=== PATIENT | male | born 1955 | race Caucasian/White ===

== ENCOUNTER 2023-07-10 18:43 | Emergency (ER) | payer MEDICARE, OTHER, SELFPAY ==
[2023-07-10 18:48] VITALS: BP 152/99; PULSE 98; RESP 18; TEMP 36.6; O2SAT 98; BMI 38.9
--- NOTE | 2023-07-10 18:56 | PC.NURSE ---
Patient reports anxiety past couple of days that tot
--- NOTE | 2023-07-10 18:58 | PC.NURSE ---
Patient reports anxiety past couple of days, symptoms worsening this evening.
--- NOTE | 2023-07-10 19:11 | ED_ITS ---
HPI - Anxiety General Chief Complaint: Anxiety Stated Complaint: INCREASED ANXIETY Time Seen by Provider: 07/10/23 18:52 Source: patient Mode of arrival: walk-in Limitations: no limitations History of Present Illness HPI narrative: patient is a 68-year-old male with a history of kidney transplant, recent diagnosis of atrial fibrillation who presents to the Emergency Room for increasing anxiety. Patient states he has been taking hydroxyzine for the last year and ran out two months ago. He states his PCP asked him if he wanted a refill of the medication but he stated that he was doing well and did not feel he needed it. He states since being diagnosed with atrial fibrillation he has felt more anxious. He denies any chest pain, shortness of breath. His symptoms are consistent with previous anxiety exacerbations. He denies any new focal medical complaints. He has no thoughts of suicide or homicide. Related Data Home Medications Medication Instructions Recorded Confirmed aspirin 81 mg tablet,delayed 81 mg PO DAILY 07/10/23 07/10/23 release (Adult Aspirin Regimen) mycophenolate mofetil 250 mg 500 mg PO Q12H 07/10/23 07/10/23 capsule prednisone 5 mg tablet 5 mg PO DAILY 07/10/23 07/10/23 sulfamethoxazole 400 1 tab PO DAILY 07/10/23 07/10/23 mg-trimethoprim 80 mg tablet tacrolimus 1 mg capsule, 1 mg PO Q12H 07/10/23 07/10/23 immediate-release Previous Rx's Medication Instructions Recorded hydroxyzine pamoate 25 mg capsule 25 mg PO Q8H PRN anxiety #15 caps 07/10/23 (Vistaril) Allergies Allergy/AdvReac Type Severity Reaction Status Date / Time No Known Drug Allergies Allergy Verified 07/10/23 18:51 Review of Systems ROS Constitutional Denies: fever or chills Ears, nose, mouth, and throat Denies: throat pain Cardiovascular Denies: chest pain Respiratory Denies: shortness of breath or cough Gastrointestinal Denies: nausea or vomiting Musculoskeletal Denies: back pain Integumentary/Breast Denies: rash Neurological Denies: headache Psychiatric Reports: anxiety Hematologic/Lymphatic Denies: easy bruising PFSH PFSH Social History Smoking status: Never smoker Exam Narrative Exam Narrative: Gen.: Awake, alert, in no distress Head: Normocephalic, atraumatic ENT: Moist mucous membranes Respiratory: No respiratory distress, lungs clear bilaterally Cardio: regular rate, no significant irregular rhythm noted Gastrointestinal: Abdomen is soft, nondistended and nontender to palpation Psych: Normal mood and affect Neuro: No focal neuro deficit Skin: Warm, dry, intact Constitutional Vital Signs, click to edit/add: Last Vital Signs Temp 98 F 07/10/23 18:48 Pulse 98 H 07/10/23 18:48 Resp 18 07/10/23 18:48 BP 152/99 H 07/10/23 18:48 Pulse Ox 98 07/10/23 18:48 O2 Del Method Room Air 07/10/23 18:48 Course Vital Signs Vital signs: Vital Signs Temperature 98 F 07/10/23 18:48 Pulse Rate 98 H 07/10/23 18:48 Respiratory Rate 18 07/10/23 18:48 Blood Pressure 152/99 H 07/10/23 18:48 Pulse Oximetry 98 07/10/23 18:48 Oxygen Delivery Method Room Air 07/10/23 18:48 Temperature 98 F 07/10/23 18:48 Pulse Rate 98 H 07/10/23 18:48 Respiratory Rate 18 07/10/23 18:48 Blood Pressure 152/99 H 07/10/23 18:48 Pulse Oximetry 98 07/10/23 18:48 Oxygen Delivery Method Room Air 07/10/23 18:48 MDM - Anxiety MDM Narrative Medical decision making narrative: I had a lengthy discussion with the patient about treatment plan. Patient is calm, cooperative with stable vital signs in the Emergency Room. He has no complaints of chest pain or shortness of breath. Given his recent diagnosis of atrial fibrillation, I recommended that we obtain an EKG and basic lab studies to rule out any other acute process causing the patient's anxiety. Patient states he does not wish to have any further evaluation in the Emergency Room, he is requesting a refill of his hydroxyzine. He states that he can follow closely with his PCP, [facility] He has no other focal medical complaints in the Emergency Room. It was strongly encouraged that the patient return to the Emergency Room if he develops any worsening focal medical complaints of chest pain, shortness of breath, fevers, vomiting. He vocalizes understanding and agreement. Hydroxyzine provided from the Emergency Room and with prescription until he can see his PCP. Medical Records Attestation: I reviewed the patient's medical records. Lab Data Attestation: I reviewed the patient's lab results. Discharge Plan Discharge Chief Complaint: Anxiety Clinical Impression: Acute anxiety Patient Disposition: Home, Self-Care Time of Disposition Decision: 19:09 Condition: Good Prescriptions / Home Meds: New hydroxyzine pamoate [Vistaril] 25 mg capsule 25 mg PO Q8H PRN (Reason: anxiety) Qty: 15 0RF No Action tacrolimus 1 mg capsule 1 mg PO Q12H mycophenolate mofetil 250 mg capsule 500 mg PO Q12H sulfamethoxazole-trimethoprim 400-80 mg tablet 1 tab PO DAILY prednisone 5 mg tablet 5 mg PO DAILY aspirin [Adult Aspirin Regimen] 81 mg tablet,delayed release (DR/EC) 81 mg PO DAILY Instructions: Anxiety (ED) Stand Alone Forms: Portal Instructions Referrals: Arden Sams [Primary Care Provider] - 1 week
[2023-07-10] MEDS: HYDROXYZINE PAMOATE 25 MG CAPSULE PO (19:47)
== END 2023-07-10 19:57 | disposition home or self-care (01) ==
PROVIDERS: Emergency Provider Emergency Medicine; PCP Physician Assistant
DX: F41.9 Anxiety disorder, unspecified (principal); I48.91 Unspecified atrial fibrillation; Z94.0 Kidney transplant status; Z79.82 Long term (current) use of aspirin; Z79.899 Other long term (current) drug therapy
CPT/HCPCS: 99283

== ENCOUNTER 2023-09-19 11:29 | Outpatient (REF) | payer MEDICARE, OTHER, SELFPAY ==
--- OUTSIDE RECORDS SUMMARY | 2023-09-19 11:33 | XMS_ITS | CCD ---
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 Name Role Phone Latrell CORTEZ, Kathleen Flores Primary Care Provider Lard FINISHING WIRE SAWYER.Usman ESTRADA Unavailable LANCE GLASGOW Admitting Unavailable [facility] Unava ilable LANCE GLASGOW Attending Unavailable LANCE GLASGOW Consulting Unavailable CHRISSY KEYES Admitting Unavailable DR MUSTAPHA BAUGH V Consulting Unavailable [facility] Unava ilCHRISSY Valencia Attending Unavailable CHRISSY KEYES Consulting Unavailable CHRISSY KEYES Attending Unavailable DR Jan Rosario Consulting Unavailable [facility] Unava ilable CHRISSY KEYES Admitting Unavailable CHRISSY KEYES Consulting Unavailable Kathleen Sams PA-C Primary Care Provider Lard FINISHING WIRE SAWYER.Usman ESTRADA Unavailable Kathleen Sams PA-C Primary Care Provider Lard FINISHING WIRE SAWYER.Usman ESTRADA Unavailable Lard FINISHING WIRE SAWYER.Usman ESTRADA Unavailable KATHLEEN SAMS Primary Care Unavailable WEIGHT, CHRISTOPHER Attending Unavailable KATHLEEN SAMS Primary Care Unavailable WEIGHT, CHRISTOPHER Attending Unavailable KATHLEEN SAMS Primary Care Unavailable KRISTINA WHITAKER Attending Unavailable KATHLEEN SAMS Primary Care Unavailable WEIGHT, CHRISTOPHER Referring Unavailable KATHLEEN SAMS Primary Care Unavailable NAEL RICHTER Referring Unavailable KATHLEEN SAMS Primary Care Unavailable KATHLEEN SAMS Primary Care Unavailable KATHLEEN SAMS Primary Care Unavailable LARUSMAN Sierra Attending Unavailable KATHLEEN SAMS Primary Care Unavailable KATHLEEN SAMS Primary Care Unavailable WEIGHT, CHRISTOPHER Referring Unavailable KATHLEEN SAMS Primary Care Unavailable KATHLEEN SAMS Primary Care Unavailable Medications Current Medications Medication Drug Class(es) Dates Sig (Normalized) Sig (Original) iv contrast (will be provided with radiology test) (2 sources) Start: 09-19-2022 End: 09-20-2022 iv contrast (will be provided with radiology test) MRI Prostate Inject, intravenously, once for 1 dose. No IV access, insert saline lock prior to the beginning of sedation, infusion, injection of imaging exam. Discontinue saline lock post exam. If Pt. has a central line or IVAD, may access for administration according to line specific nursing protocol. Once exam is complete flush line and de-access according to line specific nursing protocol in the MR contrast administration guidelines link. 1 Each 0 09/19/2022 09/20/2022 Active Comment on above: MRI Prostate Inject, intravenously, once for 1 dose. No IV access, insert saline lock prior to the beginning of sedation, infusion, injection of imaging exam. Discontinue saline lock post exam. If Pt. has a central line or IVAD, may access for administration according to line specific nursing protocol. Once exam is complete flush line and de-access according to line specific nursing protocol in the MR contrast administration guidelines link. Completed/Discontinued Medications Medication Drug Class(es) Dates Sig (Normalized) Sig (Original) acetaminophen 500 mg oral tablet (7 sources) Start: 10-05-2009 End: 09-16-2022 acetaminophen(TYLEN OL EXTRA STRENGTH 500 MG TAB) Take two(2) tablets every six(6) hours as needed for pain. 0 10/05/2009 09/16/2022 Discontinued (Course of therapy completed) Comment on above: Take two(2) tablets every six(6) hours as needed for pain. aspirin 81 mg chewable tablet (19 sources) Platelet Aggregation Inhibitor, Nonsteroidal Anti-inflammatory Drug Start: 05-03-2009 take 1 tablet by mouth once daily ASPIRIN 81 MG CHEWABLE TAB 1 Tab ORAL DAILY 0 05/03/2009 Active Comment on above: 1 Tab ORAL DAILY Calcium Carbonate / vitamin D3 (19 sources) take 1 tablet by mouth once daily CALCIUM CARBONATE/VITAMIN D3 (CALCIUM + D ORAL) Take one(1) tablet two(2) times daily. 0 Active Comment on above: Take one(1) tablet t wo(2) times daily. gabapentin 300 mg oral capsule (13 sources) Anti-epileptic Agent Start: 08-22-2022 take 1 capsule by mouth twice daily gabapentin (NEURONTIN) 300 mg capsule Take 300 mg by mouth twice daily. 0 08/22/2022 Active Comment on above: Take 300 mg by mouth twice daily. hydrOXYzine hydrochloride 25 mg oral tablet (9 sources) Antihistamine Start: 05-21-2022 End: 06-30-2023 take 1 tablet by mouth every eight hours as needed hydrOXYzine HCl (ATARAX) 25 mg tablet Take 25 mg by mouth every 8 hours as needed. 0 05/21/2022 06/30/2023 Discontinued (Discontinued by Patient) Comment on above: Take 25 mg by mouth every 8 hours as needed. magnesium oxide 400 mg oral tablet (6 sources) Start: 05-27-2014 End: 03-19-2022 take 1 tablet by mouth twice daily magnesium oxide (MAG-OX) 400 mg tablet Indications: Hypomagnesemia Take 1 tablet by mouth twice daily. 180 tablet 3 05/27/2014 03/19/2022 Discontinued Comment on above: Take 1 tablet by jennifer twice daily. mycophenolate mofetil 250 mg oral capsule (20 sources) Start: 07-01-2022 End: 06-26-2023 take 2 capsules by mouth twice daily mycophenolate mofetil (CELLCEPT) 250 mg capsule Indications: Kidney replaced by transplant , Need for prophylactic immunotherapy take 2 capsules by mouth twice a day 360 capsule 3 06/26/2023 Active Start: 04-17-2021 End: 03-19-2022 take 2 capsules by mouth twice daily mycophenolate mofetil (CELLCEPT) 250 mg capsule Indications: Kidney replaced by transplant , Need for prophylactic immunotherapy Take 2 capsules by mouth twice daily. Diagnosis Code: Z94.0 Kidney Transplant 360 capsule 3 04/17/2021 03/19/2022 Discontinued Comment on above: Take 2 capsules by m outh twice daily. Diagnosis Code: Z94.0 Kidney Transplant take 2 capsules by m outh twice a day predniSONE 5 mg oral tablet (20 sources) Start: 07-01-2022 End: 06-26-2023 take 1 tablet by mouth once daily predniSONE (DELTASONE) 5 mg tablet Indications: Kidney replaced by transplant take 1 tablet by mouth once daily 90 tablet 3 06/26/2023 Active Start: 03-21-2021 End: 03-19-2022 take 1 tablet by mouth once daily predniSONE (DELTASONE) 5 mg tablet Indications: Kidney replaced by transplant Take 1 tablet by mouth once daily. 90 tablet 3 03/21/2021 03/19/2022 Discontinued Comment on above: Take 1 tablet by jennifer th once daily. take 1 tablet by jennifer th once daily sulfamethoxazole 400 mg / trimethoprim 80 mg oral tablet (20 sources) Dihydrofolate Reductase Inhibitor Antibacterial, Sulfonamide Antimicrobial Start: 07-01-20 End: 06-26-20 take 1 tablet by mouth once daily sulfamethoxazole-tr imethoprim (BACTRIM) 400-80 mg per tablet Indications: Need for pneumocystis prophylaxis take 1 tablet by mouth once daily 90 tablet 3 06/26/2023 Active Start: 03-21-2021 End: 03-19-2022 take 1 tablet by mouth once daily sulfamethoxazole-trimethoprim (BACTRIM,SEPTRA) 400-80 mg per tablet Indications: Need for pneumocystis prophylaxis Take 1 tablet by mouth once daily. 90 tablet 3 03/21/2021 03/19/2022 Discontinued Comment on above: Take 1 tablet by jennifer th once daily. take 1 tablet by jennifer th once daily tacrolimus 1 mg oral capsule (20 sources) Calcineurin Inhibitor Immunosuppressant Start: 09-20-19 End: 12-06-19 take 1 capsule by mouth twice daily tacrolimus IR (PROGRAF) 1 mg capsule Indications: Kidney replaced by transplant Take(1) capsule by mouth twice daily 270 capsule 3 12/05/2022 Active Start: 07-01-2022 End: 09-20-2022 take 1 capsule by mouth once daily in the morning tacrolimus IR (PROGRAF) 1 mg capsule Indications: Kidney replaced by transplant Take (2) capsules by mouth every morning and (1) capsule every evening 270 capsule 3 07/01/2022 09/20/2022 Discontinued Start: 04-17-2021 End: 03-19-2022 take 1 capsule by mouth twice daily tacrolimus IR (PROGRAF) 1 mg capsule Indications: Kidney replaced by transplant Take 2 capsules by mouth twice daily (Take 12 hours apart) Diagnosis Code: Z94.0 360 capsule 3 04/17/2021 03/19/2022 Discontinued Comment on above: Take 2 capsules by m out twice daily (Take 12 hours apart) Diagnosis Code: Z94.0 Take (2) capsules by mouth every morning and (1) capsule every evening Take(1) capsule by m out twice daily Problems Active Problems Problem Classification Problem Date Documented Da te Episodic/Chronic Abdominal hernia (19 sources) Umbilical hernia; Translations: [Umbilical hernia without obstruction or gangrene] 01-29-2012 Episodic Cardiac dysrhythmias (4 sources) Irregular heart beat; Translations: [Cardiac arrhythmia, unspecified] Onset: 06-30-2023 06-30-2023 Chronic Chronic kidney disease (1 source) Kidney transplant status; Translations: [Kidney replaced by transplant] Onset: 05-08-2009 Chronic Genitourinary congenital anomalies (20 sources) Multiple renal cysts; Translations: [Polycystic kidney, unspecified] Onset: 05-08-2009 05-08-2009 Chronic Hypertension with complications and secondary hypertension (19 sources) 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; Translations: [Hypertensive heart and chronic kidney disease without heart failure, with stage 5 chronic kidney disease, or end stage renal disease] Onset: 05-08-2009 05-08-2009 Chronic Other aftercare (1 source) Transplant follow-up; Translations: [Encounter for aftercare following other organ transplant] 06-30-2023 Chronic Other aftercare (1 source) Encounter for aftercare following other organ transplant; Translations: [Aftercare following organ transplant] Onset: 06-30-2023 Chronic Other aftercare (1 source) 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; Translations: [[facility] CURRENT USE OF ASPIRIN] Onset: 04-22-2022 Episodic Other aftercare (1 source) Other [facility] (current) drug therapy; Translations: [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] Onset: 04-22-2022 Episodic Other diseases of kidney and ureters (19 sources) Ureteric fistula; Translations: [Other specified disorders of kidney and ureter] Onset: 05-08-2009 05-08-2009 Chronic Other gastrointestinal disorders (4 sources) Constipation, unspecified; Translations: [CONSTIPATION UNSPECIFIED] Onset: 04-20-2022 Episodic Other non-traumatic joint disorders (4 sources) Pain in left ankle and joints of left foot; Translations: [PAIN IN LEFT ANKLE] Onset: 01-30-2022 Episodic Other nutritional; endocrine; and metabolic disorders (2 sources) Hypomagnesemia; Translations: [Hypomagnesemia] Chronic Other nutritional; endocrine; and metabolic disorders (1 source) Hypophosphatemia; Translations: [Other disorders of phosphorus metabolism] 06-30-2023 Chronic Other nutritional; endocrine; and metabolic disorders (1 source) Other disorders of phosphorus metabolism; Translations: [Hypophosphatemia] Onset: 06-30-2023 Chronic Other nutritional; endocrine; and metabolic disorders (1 source) Hypomagnesemia; Translations: [Hypomagnesemia] Onset: 06-30-2023 Chronic Past or Other Problems Problem Classification Problem Date Documented Da te Episodic/Chronic Other screening for suspected conditions (not mental disorders or infectious disease) (10 sources) Raised prostate specific antigen; Translations: [Elevated prostate specific antigen [PSA]] Onset: 11-05-2022 Episodic Residual codes; unclassified (20 sources) Prevention status; Translations: [Encounter for other specified prophylactic measures] Onset: 05-08-2009 05-08-2009 Episodic Results Test Name Value Interpretation Reference Range Facility CBC panel Auto (Bld)on 09-02 Erythrocyte distribution width (RBC) [Ratio] 12.6 % Normal 11.5-15.0 [facility] Comment on above: Order Comment: Speci men Type: BLOOD SPECIMENOrdering Facility: [facility] Address: [address] [place] [address] Performed By: #### 5 8410-2 ####[facility] LABCLIA [id number] [place] [address] Hematocrit (Bld) [Volume fraction] 46.8 % Normal 39.0-51.0 [facility] Comment on above: Order Comment: Speci men Type: BLOOD SPECIMENOrdering Facility: [facility] Address: [address] [place] [address] Performed By: #### 5 8410-2 ####[facility] LABCLIA [id number] [place] [address] Hemoglobin (Bld) [Mass/Vol] 16.1 g/dL Normal 13.0-17.0 [facility] Comment on above: Order Comment: Speci men Type: BLOOD SPECIMENOrdering Facility: [facility] Address: [address] [place] [address] Performed By: #### 5 8410-2 ####[facility] LABCLIA [id number] [place] [address] MCH (RBC) [Entitic mass] 31.5 pg Normal 26.0-34.0 [facility] Comment on above: Order Comment: Speci men Type: BLOOD SPECIMENOrdering Facility: [facility] Address: [address] [place] [address] Performed By: #### 5 8410-2 ####[facility]CLIA [id number] [place] [address] MCHC (RBC) [Mass/Vol] 34.4 g/dL Normal 30.5-36.0 [facility] Comment on above: Order Comment: Speci men Type: BLOOD SPECIMENOrdering Facility: [facility] Address: [address] [place] [address] Performed By: #### 5 8410-2 ####[facility] LABIA [id number] [place] [address] MCV (RBC) [Entitic vol] 91.6 fL Normal 80.0-100.0 [facility] Comment on above: Order Comment: Speci men Type: BLOOD SPECIMENOrdering Facility: [facility] Address: [address] [place] [address] Performed By: #### 5 8410-2 ####[facility] LABIA [id number] [place] [address] Nucleated RBC (Bld) [#/Vol] 10*3/uL Normal <0.01 [facility] Comment on above: Order Comment: Speci men Type: BLOOD SPECIMENOrdering Facility: [facility] Address: [address] [place] [address] Performed By: #### 5 8410-2 ####[facility] LABIA [id number] [place] [address] Platelet mean volume (Bld) [Entitic vol] 9.0 fL Normal 9.0-12.7 [facility] Comment on above: Order Comment: Speci men Type: BLOOD SPECIMENOrdering Facility: [facility] Address: [address] [place] [address] Performed By: #### 5 8410-2 ####[facility] LABCLIA [id number] [place] [address] Platelets (Bld) [#/Vol] 144 10*3/uL Low 150-400 [facility] Comment on above: Order Comment: Speci men Type: BLOOD SPECIMENOrdering Facility: [facility] Address: [address] [place] [address] Performed By: #### 5 8410-2 ####[facility] LABCLIA [id number] [place] [address] RBC (Bld) [#/Vol] 5.11 10*6/uL Normal 4.20-6.00 [facility] Comment on above: Order Comment: Speci men Type: BLOOD SPECIMENOrdering Facility: [facility] Address: [address] [place] [address] Performed By: #### 5 8410-2 ####[facility] LABCLIA [id number] [place] [address] WBC (Bld) [#/Vol] 6.35 10*3/uL Normal 3.70-11.00 [facility] Comment on above: Order Comment: Speci men Type: BLOOD SPECIMENOrdering Facility: [facility] Address: [address] [place] [address] Performed By: #### 5 8410-2 ####[facility] LABIA [id number] [place] [address] Comprehensive metabolic 2000 panelon 09-02-2023 Albumin [Mass/Vol] 4.3 g/dL Normal 3.9-4.9 [facility] Comment on above: Order Comment: Speci men Type: BLOOD SPECIMENOrdering Facility: [facility] Address: [address] [id number] Performed By: #### 2 4323-8, , 2776-09 ####[facility] LABCLIA [id number] [place] [address] ALP [Catalytic activity/Vol] 59 U/L Normal 38-113 [facility] Comment on above: Order Comment: Speci men Type: BLOOD SPECIMENOrdering Facility: [facility] Address: [address] [place] [address] Performed By: #### 2 4323-8, , 2776-09 ####[facility] LABCLIA [id number] [place] [address] ALT [Catalytic activity/Vol] 12 U/L Normal 10-54 [facility] Comment on above: Order Comment: Speci men Type: BLOOD SPECIMENOrdering Facility: [facility] Address: [address] [place] [address] Performed By: #### 2 4323-8, , 2776-09 ####[facility] LABCLIA [id number] [place] [address] Anion gap [Moles/Vol] 10 mmol/L Normal 9-18 [facility] Comment on above: Order Comment: Speci men Type: BLOOD SPECIMENOrdering Facility: [facility] Address: [address] [id number] Performed By: #### 2 4323-8, , 2776-09 ####[facility] LABCLIA [id number] [place] [address] AST [Catalytic activity/Vol] 18 U/L Normal 14-40 [facility] Comment on above: Order Comment: Speci men Type: BLOOD SPECIMENOrdering Facility: [facility] Address: [address] [id number] Performed By: #### 2 4323-8, , 2776-09 ####[facility] LABCLIA [id number] [place] [address] Bilirubin [Mass/Vol] 1.6 mg/dL High 0.2-1.3 [facility] Comment on above: Order Comment: Speci men Type: BLOOD SPECIMENOrdering Facility: [facility] Address: [address] [place] [address] Performed By: #### 2 4323-8, , 2776-09 ####[facility] LABCLIA [id number] [place] [address] Calcium [Mass/Vol] 10.6 mg/dL High 8.5-10.2 [facility] Comment on above: Order Comment: Speci men Type: BLOOD SPECIMENOrdering Facility: [facility] Address: [address] [place] [address] Performed By: #### 2 4323-8, , 2776-09 ####[facility] LABCLIA [id number] [place] [address] Chloride [Moles/Vol] 106 mmol/L High 97-105 [facility] Comment on above: Order Comment: Speci men Type: BLOOD SPECIMENOrdering Facility: [facility] Address: [address] [place] [address] Performed By: #### 2 4323-8, , 2776-09 ####[facility] LABCLIA [id number] [place] [address] CO2 [Moles/Vol] 27 mmol/L Normal 22-30 [facility] Comment on above: Order Comment: Speci men Type: BLOOD SPECIMENOrdering Facility: [facility] Address: [address] [place] [address] Performed By: #### 2 4323-8, , 2776-09 ####[facility] LABCLIA [id number] [place] [address] Creatinine [Mass/Vol] 1.55 mg/dL High 0.73-1.22 [facility] Comment on above: Order Comment: Anitra echeverria Type: BLOOD SPECIMENOrdering Facility: [facility] Address: [address] [id number] Performed By: #### 2 4323-8, 58113-9, 2776-09 ####[facility] LABCLIA [id number] [place] [address] Creatinine and Glomerular filtration rate.predicted panel (S/P/Bld) 49 mL/min/1.73m??? Low >=60 [facility] Comment on above: Order Comment: Anitra echeverria Type: BLOOD SPECIMENOrdering Facility: [facility] Address: [address] [place] [address] Result Comment: Katalina mated Glomerular Filtration Rate (eGFR) is calculated using the 2020 CKD-EPI creatinine equation. This equation utilizes serum creatinine, sex, and age as parameters. The creatinine assay has traceable calibration to isotope dilution-mass spectrometry. Refer to KDIGO guidelines for clinical interpretation. In patients with unstable renal function, e.g. those with acute kidney injury, the eGFR may not accurately reflect actual GFR. Performed By: #### 2 4323-8, , 2776-09 ####[facility] LABCLIA [id number] [place] [address] Glucose [Mass/Vol] 108 mg/dL High 74-99 [facility] Comment on above: Order Comment: Anitra echeverria Type: BLOOD SPECIMENOrdering Facility: [facility] Address: [address] [id number] Result Comment: The [place] [employer] (ADA) provides guidance for cutoff values for fasting glucose and random glucose. The ADA defines fasting as no caloric intake for at least 8 hours. Fasting plasma glucose results between 100 to 125 mg/dL indicate increased risk for diabetes (prediabetes). Fasting plasma glucose results greater than or equal to 126 mg/dL meet the criteria for diagnosis of diabetes. In the absence of unequivocal hyperglycemia, results should be confirmed by repeat testing. In a patient with classic symptoms of hyperglycemia or hyperglycemic crisis, random plasma glucose results greater than or equal to 200 mg/dL meet the criteria for diagnosis of diabetes. Reference: Standards of Medical Care in Diabetes 2016, [place] [employer]. Diabetes Care. 2016.39(Suppl 1). Performed By: #### 2 4323-8, , 2776-09 ####[facility] LABCLIA [id number] [place] [address] Potassium [Moles/Vol] 4.2 mmol/L Normal 3.7-5.1 [facility] Comment on above: Order Comment: Speci men Type: BLOOD SPECIMENOrdering Facility: [facility] Address: [address] [id number] Performed By: #### 2 4323-8, , 2776-09 ####[facility] LABCLIA [id number] [place] [address] Protein [Mass/Vol] 6.4 g/dL Normal 6.3-8.0 [facility] Comment on above: Order Comment: Speci men Type: BLOOD SPECIMENOrdering Facility: [facility] Address: [address] [place] [address] Performed By: #### 2 4323-8, , 2776-09 ####[facility] LABIA [id number] [place] [address] Sodium [Moles/Vol] 143 mmol/L Normal 136-144 [facility] Comment on above: Order Comment: Speci men Type: BLOOD SPECIMENOrdering Facility: [facility] Address: [address] [place] [address] Performed By: #### 2 4323-8, , 2776-09 ####[facility] LABCLIA [id number] [place] [address] Urea nitrogen [Mass/Vol] 17 mg/dL Normal 9-24 [facility] Comment on above: Order Comment: Speci men Type: BLOOD SPECIMENOrdering Facility: [facility] Address: [address] [place] [address] Performed By: #### 2 4323-8, , 2776-09 ####[facility] LABCLIA [id number] [place] [address] Magnesium SerPl-[facility] 09-02 Magnesium [Mass/Vol] 1.7 mg/dL Normal 1.7-2.3 [facility] Comment on above: Order Comment: Speci men Type: BLOOD SPECIMENOrdering Facility: [facility] Address: [address] [place] [address] Performed By: #### 2 4328, , 2776-09 ####[facility] LABIA [id number] [place] [address] Phosphate SerPl-nc 09-02 Phosphate [Mass/Vol] 3.2 mg/dL Normal 2.7-4.8 [facility] Comment on above: Order Comment: Speci men Type: BLOOD SPECIMENOrdering Facility: [facility] Address: [address] [place] [address] Performed By: #### 2 432-8, , 2776-09 ####[facility] LABIA [id number] [place] [address] Tacrolimus Bld-[facility] 2022 Tacrolimus (Bld) [Mass/Vol] 6.2 ng/mL Normal 5.0-20.0 [facility] Comment on above: Order Comment: Speci men Type: BLOOD SPECIMENOrdering Facility: [facility] Address: [address] [place] [address] Result Comment: Olivia vidualized target levels for a given patient will depend on many factors (including the type of organ transplant, time since transplantation, concurrent medications, and other clinical factors), and should be assessed by those health care providers experienced in the management of immunosuppression. Reference ranges and high/low indicator flags are provided as general guidelines only. The treating physician must determine appropriate target levels/dosing based on the specific clinical situation. Test performed by chemiluminescent immunoassay using [employer] Alinity i. Performed By: #### 1 1253-2 ####[facility] NIKHIL [id number] [facility] [id number] [place] [id number] [place] CNNURSEon 07-01-2023 [facility] (HEMASA) LINK ROSEN ([id number]) 1955 M Date Time Provider Department 07/01/23 2:00 PM [facility] NURSE ONEL BECKER During your visit today, we recorded the following information about you: Briana Dailey MA 07/01/2023 2:07 PM Signed EKG performed as ordered. Transmitted to [facility] electronically, placed in scanning. Briana Dailey MA Allergies As of Date: 07/01/2023 (No Known Allergies) Date Reviewed: 06/30/2023 Reviewed by: Barbara Darden MA - Fully Assessed Primary Visit Diagnosis:Irregular heartbeat [I49.9] Other Visit Diagnosis:Polycystic kidney disease [Q61.3] Prescriptions as of 07/01/2023 - mycophenolate mofetil (CELLCEPT) 250 mg capsule take 2 capsules by mouth twice a day - predniSONE (DELTASONE) 5 mg tablet take 1 tablet by mouth once daily - sulfamethoxazole-trimethopri m (BACTRIM) 400-80 mg per tablet take 1 tablet by mouth once daily - tacrolimus IR (PROGRAF) 1 mg capsule Take(1) capsule by mouth twice daily - gabapentin (NEURONTIN) 300 mg capsule Take 300 mg by mouth twice daily. - CALCIUM CARBONATE/VITAMIN D3 (CALCIUM + D ORAL) Take one(1) tablet two(2) times daily. - ASPIRIN 81 MG CHEWABLE TAB 1 Tab ORAL DAILY Meds Comments as of 02/22/2010: Patient states he doesn't always take Pepcid. 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 Transmitted to [facility] electronically, placed in scanning. Briana Dailey MA Encounter Status:Closed by BRIANA DAILEY on 07/01/23 Normal [facility] [id number] 07-01-2023 ECG01 Ventricular Rate : 1 04 BPM Atrial Rate : 104 BPM QRS Duration : 110 ms Q-T Interval : 342 ms QTC Calculation(Bazett) : 449 ms Calculated R [place] : -64 degrees Calculated T [place] : 74 degrees 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 ABNORMAL ECG Confirmed by MD SINCLAIR TAMANNA ([id number]) on 07/03/2023 12:04:37 PM NAME : LINK ROSEN PID : [id number] : 1955 Gender : Male Race : ORD : Procedure Date : Jul 01 2023 14:09:00 Edit Date : Jul 03 2023 12:04:39 Diagnosis: 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 ABNORMAL ECG Confirmed by MD SINCLAIR TAMANNA ([id number]) on 07/03/2023 12:04:37 PM Test Reason : Location : 539 : [facility] Overread By : MD SINCLAIR TAMANNA Edited By : MD SINCLAIR TAMANNA Referred By : USMAN LOWRY APRN.CNP Acquired by : Yury BORJA [facility] CNCOon 06-30-2023 CNCO Letter Text [facility] CNOVon 06-30-2023 CNOV Office Visit (KIDMMN ) LINK ROSEN ([id number]) 1955 M Date Time Provider Department 06/30/23 11:00 AM USMAN LOWRY During your visit today, we recorded the following information about you: Temperature Pulse Blood pressure Weight 97.8 degrees 91/minute 127/80 176.4 kg Height 2.134 m Usman Lowry APRN.GUIDE CHANGER 06/30/2023 6:11 PM Signed Patient presents for renal tx follow up care The HPI and Assessment was copied from my previous note dated 07/01/2022 with changes as noted Mr. Link Rosen is a 68 year old male who presents for follow up of a dual adult DD kidney transplant. 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 Had ventral hernia repair in February 2013. Baseline scr 1.2-1.4 Brother had renal tx here in Aug 2020 PAST MEDICAL HISTORY Diagnosis Date Coronary atherosclerosis of unspecified type of vessel, [place] or graft Mild 3-vessel Coronary artery disease Hypertension Polycystic kidney, unspecified type 1993 S/p cadaver renal transplant Umbilical hernia PAST SURGICAL HISTORY Procedure Laterality Date LAPAROSCOPY REPAIR INCISIONAL HERNIA REDUCIBLE 2001 umbilical PAST SURGICAL HISTORY OF 07/27/07 Colon Polypectomy- Tubular Adenoma PAST SURGICAL HISTORY OF 10/17 Placement of Left UE AVF x 2 TONSILLECTOMY PRIMARY/SECONDARY Tonsillectomy L ankle fusion surgery on 10/22/19--required reoperation to remove hardware Office visit with me on 07/01/22 Presents today for follow up, no new concerns. Noted stool being really yellow 1-2 weeks shortly after last labs noted T bili of 1.7. Since then he has noted it seems to have returned to usual color. No yellowing of skin or sclerae. No abd pain. No fevers or chills. Appetite is very good. He is trying to lose weight. He cites being retired as a reason for wt gain over the last 3+ years. No urinary issues. No allograft pain. Mild tremaine YAJAIRA, L>R at baseline in view of hx of ankle surgery. No cough, shortness of breath, no chest pain or palpitations. No lightheadedness or dizziness. Occasional headaches but he believes related to excessive screen time on the computer. Energy is variable. He tries to be active. BP - standardized method Pulse 1 BP #1: 139/82 Pulse #1: 78 beats/min 2 BP #2 : 131/79 Pulse #2 : 93 beats/min 3 BP #3 : 111/79 Pulse #3 : 102 beats/min Average Average BP: 127/80 Average Pulse: 91 beats/min Orthostatic vitals Supine Sitting Standing Standing BP : 140/67 Standing pulse : 71 BP cuff location BP cuff location: Left upper arm BP cuff size BP cuff size: extra large adult Comments for BP values First BP (right) First BP (left) BP - standardized method Pulse 1 BP #1: 139/82 Pulse #1: 78 beats/min 2 BP #2 : 131/79 Pulse #2 : 93 beats/min 3 BP #3 : 111/79 Pulse #3 : 102 beats/min Average Average BP: 127/80 Average Pulse: 91 beats/min Orthostatic vitals Supine Sitting Standing Standing BP : 140/67 Standing pulse : 71 BP cuff location BP cuff location: Left upper arm BP cuff size BP cuff size: extra large adult Comments for BP values First BP (right) First BP (left) Last 3 Encounter BP Readings: Date: BP: 06/30/2023 127/80 07/01/2022 138/83 01/16/2022 137/82 Estimated Creatinine Clearance: 92.8 mL/min (A) (based on SCr of 1.48 mg/dL (H)). eGFR-All Other Races Date Value 06/11/2016 59 . 03/02/2016 56 11/15/2013 >60 . 05/31/2013 58 . 11/23/2012 57 . Estimated Glomerular Filtration Rate (mL/min/1.73m?) Date Value 06/03/2023 52 03/04/2023 58 12/02/2022 57 09/03/2022 57 BUN Date Value 06/03/2023 19 mg/dL 03/04/2023 16 mg/dL 12/02/2022 14 mg/dL 12/08/2017 14 09/13/2017 20 05/31/2017 18 Creatinine Date Value 06/03/2023 1.48 mg/dL 03/04/2023 1.36 mg/dL 12/02/2022 1.38 mg/dL 12/05/2018 1.22 03/02/2018 1.3 12/08/2017 1.14 Sodium Date Value 06/03/2023 141 mmol/L 03/04/2023 138 mmol/L 12/02/2022 139 mmol/L 12/08/2017 139 09/13/2017 140 05/31/2017 141 Potassium Date Value 06/03/2023 4.3 mmol/L 03/04/2023 4.2 mmol/L 12/02/2022 4.4 mmol/L 12/08/2017 3.8 09/13/2017 4 05/31/2017 4.1 Chloride Date Value 06/03/2023 106 mmol/L 03/04/2023 104 mmol/L 12/02/2022 104 mmol/L 12/08/2017 107 09/13/2017 107 05/31/2017 107 CO2 Date Value 06/03/2023 26 mmol/L 03/04/2023 26 mmol/L 12/02/2022 25 mmol/L 12/08/2017 23 09/13/2017 24 05/31/2017 26 Calcium (no units) Date Value 12/08/2017 9.6 09/13/2017 9.6 05/31/2017 9.5 Calcium, Total (mg/dL) Date Value 06/03/2023 10.1 03/04/2023 9.7 12/02/2022 9.9 Magnesium Date Value 06/03/2023 1.6 mg/dL 06 (more content not included)... Normal [facility] URINALYSIS, REFLEX MICROSCOP ICon 06-30-2023 Bilirubin Ql (U) Negative Normal Negative [facility] Comment on above: Order Comment: Speci men Type: URINE SPECIMENOrdering Facility: [facility] Address: [address] [place] [address] Performed By: #### L [id number] ####[facility] LABCLIA [id number] [place] [address] [place] Clarity (Unsp spec) Clear Normal Clear [facility] Comment on above: Order Comment: Speci men Type: URINE SPECIMENOrdering Facility: [facility] Address: [address] [place] [address] Performed By: #### L [id number] ####[facility] LABCLIA [id number] [place] [address] [place] Color (U) Yellow Normal Yellow [facility] Comment on above: Order Comment: Speci men Type: URINE SPECIMENOrdering Facility: [facility] Address: [address] [place] [address] Performed By: #### L [id number] ####[facility] LABCLIA [id number] [place] [address] [place] Glucose Test strip (U) [Mass/Vol] Negative Normal Trace, Negative [facility] Comment on above: Order Comment: Speci men Type: URINE SPECIMENOrdering Facility: [facility] Address: [address] [place] [address] Performed By: #### L [id number] ####[facility] LABCLIA [id number] [place] [address] [place] Hemoglobin Ql (U) Negative Normal Negative, Trace [facility] Comment on above: Order Comment: Speci men Type: URINE SPECIMENOrdering Facility: [facility] Address: [address] [place] [address] Performed By: #### L [id number] ####[facility] LABCLIA [id number] [place] [address] [place] Ketones Ql (U) Negative Normal Negative, Trace [facility] Comment on above: Order Comment: Speci men Type: URINE SPECIMENOrdering Facility: [facility] Address: [address] [place] [address] Performed By: #### L [id number] ####[facility] LABCLIA [id number] [place] [address] [place] Leukocyte esterase Test strip Ql (U) Negative Normal Negative, 25 Yandy/uL [facility] Comment on above: Order Comment: Speci men Type: URINE SPECIMENOrdering Facility: [facility] Address: [address] [place] [address] Performed By: #### L [id number] ####[facility] LABCLIA [id number] [place] [address] [place] Nitrite Ql (U) Negative Normal Negative [facility] Comment on above: Order Comment: Speci men Type: URINE SPECIMENOrdering Facility: [facility] Address: [address] [place] [address] Performed By: #### L [id number] ####[facility] LABCLIA [id number] [place] [address] [place] pH (U) 6.0 [pH] Normal 5.0-8.0 [facility] Comment on above: Order Comment: Speci men Type: URINE SPECIMENOrdering Facility: [facility] Address: [address] [place] [address] Performed By: #### L [id number] ####[facility] LABCLIA [id number] [place] [address] [place] Protein (U) [Mass/Vol] Negative Normal Trace, Negative [facility] Comment on above: Order Comment: Speci men Type: URINE SPECIMENOrdering Facility: [facility] Address: [address] [place] [address] Performed By: #### L [id number] ####[facility] LABCLIA [id number] [place] [address] [place] Specific gravity (U) [Rel density] 1.017 Normal 1.005-1.030 [facility] Comment on above: Order Comment: Speci men Type: URINE SPECIMENOrdering Facility: [facility] Address: [address] [place] [address] Performed By: #### L [id number] ####[facility] LABCLIA [id number] [place] [address] [place] Urobilinogen Ql (U) Negative Normal Negative [facility] Comment on above: Order Comment: Speci men Type: URINE SPECIMENOrdering Facility: [facility] Address: [address] [place] [address] Performed By: #### L [id number] ####[facility] LABCLIA [id number] [place] [address] [place] CBC panel Auto (Bld)on 06-03 Erythrocyte distribution width (RBC) [Ratio] 12.9 % Normal 11.5-15.0 [facility] Comment on above: Order Comment: Speci men Type: BLOOD SPECIMENOrdering Facility: [facility] Address: [address] [place] [address] Performed By: #### 5 8410-2 ####[facility] LABCLIA [id number] [place] [address] Hematocrit (Bld) [Volume fraction] 46.2 % Normal 39.0-51.0 [facility] Comment on above: Order Comment: Speci men Type: BLOOD SPECIMENOrdering Facility: [facility] Address: [address] [place] [address] Performed By: #### 5 8410-2 ####[facility] LABCLIA [id number] [place] [address] Hemoglobin (Bld) [Mass/Vol] 15.4 g/dL Normal 13.0-17.0 [facility] Comment on above: Order Comment: Speci men Type: BLOOD SPECIMENOrdering Facility: [facility] Address: [address] [place] [address] Performed By: #### 5 8410-2 ####[facility] LABCLIA [id number] [place] [address] MCH (RBC) [Entitic mass] 31.6 pg Normal 26.0-34.0 [facility] Comment on above: Order Comment: Speci men Type: BLOOD SPECIMENOrdering Facility: [facility] Address: [address] [place] [address] Performed By: #### 5 8410-2 ####[facility] LABCLIA [id number] [place] [address] MCHC (RBC) [Mass/Vol] 33.3 g/dL Normal 30.5-36.0 [facility] Comment on above: Order Comment: Speci men Type: BLOOD SPECIMENOrdering Facility: [facility] Address: [address] [place] [address] Performed By: #### 5 8410-2 ####[facility] LABIA [id number] [place] [address] MCV (RBC) [Entitic vol] 94.9 fL Normal 80.0-100.0 [facility] Comment on above: Order Comment: Speci men Type: BLOOD SPECIMENOrdering Facility: [facility] Address: [address] [place] [address] Performed By: #### 5 8410-2 ####[facility] LABIA [id number] [place] [address] Nucleated RBC (Bld) [#/Vol] 10*3/uL Normal <0.01 [facility] Comment on above: Order Comment: Speci men Type: BLOOD SPECIMENOrdering Facility: [facility] Address: [address] [place] [address] Performed By: #### 5 8410-2 ####[facility] LABIA [id number] [place] [address] Platelet mean volume (Bld) [Entitic vol] 8.8 fL Low 9.0-12.7 [facility] Comment on above: Order Comment: Speci men Type: BLOOD SPECIMENOrdering Facility: [facility] Address: [address] [place] [address] Performed By: #### 5 8410-2 ####[facility] LABCLIA [id number] [place] [address] Platelets (Bld) [#/Vol] 145 10*3/uL Low 150-400 [facility] Comment on above: Order Comment: Speci men Type: BLOOD SPECIMENOrdering Facility: [facility] Address: [address] [place] [address] Performed By: #### 5 8410-2 ####[facility] LABCLIA [id number] [place] [address] RBC (Bld) [#/Vol] 4.87 10*6/uL Normal 4.20-6.00 [facility] Comment on above: Order Comment: Speci men Type: BLOOD SPECIMENOrdering Facility: [facility] Address: [address] [place] [address] Performed By: #### 5 8410-2 ####[facility] LABCLIA [id number] [place] [address] WBC (Bld) [#/Vol] 7.14 10*3/uL Normal 3.70-11.00 [facility] Comment on above: Order Comment: Speci men Type: BLOOD SPECIMENOrdering Facility: [facility] Address: [address] [place] [address] Performed By: #### 5 8410-2 ####[facility] LABCLIA [id number] [place] [address] Comprehensive metabolic 2000 panelon 06-03-2023 Albumin [Mass/Vol] 4.2 g/dL Normal 3.9-4.9 [facility] Comment on above: Order Comment: Speci men Type: BLOOD SPECIMENOrdering Facility: [facility] Address: [address] [place] [address] Performed By: #### 1 9123-9, 70272-2, 2777-1 ####[facility] LABCLIA [id number] [place] [address] ALP [Catalytic activity/Vol] 55 U/L Normal 38-113 [facility] Comment on above: Order Comment: Speci men Type: BLOOD SPECIMENOrdering Facility: [facility] Address: [address] [place] [address] Performed By: #### 1 9123-9, 53115-5, 2776- ####SILVANAAKISHA [facility] LABCLIA [id number] [place] [address] ALT [Catalytic activity/Vol] 14 U/L Normal 10-54 [facility] Comment on above: Order Comment: Speci men Type: BLOOD SPECIMENOrdering Facility: [facility] Address: [address] [place] [address] Performed By: #### 1 9123-9, 97892-1, 2776- ####LUDMILA [facility] LABIA [id number] [place] [address] Anion gap [Moles/Vol] 9 mmol/L Normal 9-18 [facility] Comment on above: Order Comment: Speci men Type: BLOOD SPECIMENOrdering Facility: [facility] Address: [address] [place] [address] Performed By: #### 1 9123-9, 83894-3, 2776- ####SILVANAAKISHA [facility] LABIA [id number] [place] [address] AST [Catalytic activity/Vol] 19 U/L Normal 14-40 [facility] Comment on above: Order Comment: Speci men Type: BLOOD SPECIMENOrdering Facility: [facility] Address: [address] [place] [address] Performed By: #### 1 9123-9, 57165-1, 2776- ####[facility] LABCLIA [id number] [place] [address] Bilirubin [Mass/Vol] 1.7 mg/dL High 0.2-1.3 [facility] Comment on above: Order Comment: Speci men Type: BLOOD SPECIMENOrdering Facility: [facility] Address: [address] [place] [address] Performed By: #### 1 9123-9, 15159-6, 277- ####COX MONETTISHA [facility] LABCLIA [id number] [place] [address] Calcium [Mass/Vol] 10.1 mg/dL Normal 8.5-10.2 [facility] Comment on above: Order Comment: Speci men Type: BLOOD SPECIMENOrdering Facility: [facility] Address: [address] [place] [address] Performed By: #### 1 9123-9, 48407-0, 277- ####SILVANAAKISHA [facility] LABIA [id number] [place] [address] Chloride [Moles/Vol] 106 mmol/L High 97-105 [facility] Comment on above: Order Comment: Speci men Type: BLOOD SPECIMENOrdering Facility: [facility] Address: [address] [place] [address] Performed By: #### 1 9123-9, 62485-2, 2776- ####SILVANAAKISHA [facility] LABIA [id number] [place] [address] CO2 [Moles/Vol] 26 mmol/L Normal 22-30 [facility] Comment on above: Order Comment: Speci men Type: BLOOD SPECIMENOrdering Facility: [facility] Address: [address] [place] [address] Performed By: #### 1 9123-9, 81512-7, 277- ####[facility] LABIA [id number] [place] [address] Creatinine [Mass/Vol] 1.48 mg/dL High 0.73-1.22 [facility] Comment on above: Order Comment: Speci men Type: BLOOD SPECIMENOrdering Facility: [facility] Address: [address] [place] [address] Performed By: #### 1 9123-9, 48421-5, 2777-1 ####[facility] LABCLIA [id number] [place] [address] Creatinine and Glomerular filtration rate.predicted panel (S/P/Bld) 52 mL/min/1.73m??? Low >=60 [facility] Comment on above: Order Comment: Anitra echeverria Type: BLOOD SPECIMENOrdering Facility: [facility] Address: [address] [place] [address] Result Comment: Katalina mated Glomerular Filtration Rate (eGFR) is calculated using the 2020 CKD-EPI creatinine equation. This equation utilizes serum creatinine, sex, and age as parameters. The creatinine assay has traceable calibration to isotope dilution-mass spectrometry. Refer to KDIGO guidelines for clinical interpretation. In patients with unstable renal function, e.g. those with acute kidney injury, the eGFR may not accurately reflect actual GFR. Performed By: #### 1 9123-9, 28427-0, 2777-1 ####[facility] LABCLIA [id number] [place] [address] Glucose [Mass/Vol] 129 mg/dL High 74-99 [facility] Comment on above: Order Comment: Anitra echeverria Type: BLOOD SPECIMENOrdering Facility: [facility] Address: [address] [place] [address] Result Comment: The [place] Diabetes [employer] (ADA) provides guidance for cutoff values for fasting glucose and random glucose. The ADA defines fasting as no caloric intake for at least 8 hours. Fasting plasma glucose results between 100 to 125 mg/dL indicate increased risk for diabetes (prediabetes). Fasting plasma glucose results greater than or equal to 126 mg/dL meet the criteria for diagnosis of diabetes. In the absence of unequivocal hyperglycemia, results should be confirmed by repeat testing. In a patient with classic symptoms of hyperglycemia or hyperglycemic crisis, random plasma glucose results greater than or equal to 200 mg/dL meet the criteria for diagnosis of diabetes. Reference: Standards of Medical Care in Diabetes 2016, [place] [employer]. Diabetes Care. 2016.39(Suppl 1). Performed By: #### 1 23-9, , 2776-09 ####[facility] LABCLIA [id number] [place] [address] Potassium [Moles/Vol] 4.3 mmol/L Normal 3.7-5.1 [facility] Comment on above: Order Comment: Speci men Type: BLOOD SPECIMENOrdering Facility: [facility] Address: [address] [place] [address] Performed By: #### 1 9123-9, , 2776-09 ####[facility] LABIA [id number] [place] [address] Protein [Mass/Vol] 6.2 g/dL Low 6.3-8.0 [facility] Comment on above: Order Comment: Speci men Type: BLOOD SPECIMENOrdering Facility: [facility] Address: [address] [place] [address] Performed By: #### 1 239, , 2776-09 ####[facility] LABIA [id number] [place] [address] Sodium [Moles/Vol] 141 mmol/L Normal 136-144 [facility] Comment on above: Order Comment: Speci men Type: BLOOD SPECIMENOrdering Facility: [facility] Address: [address] [place] [address] Performed By: #### 1 239, , 2776-09 ####[facility] LABIA [id number] [place] [address] Urea nitrogen [Mass/Vol] 19 mg/dL Normal 9-24 [facility] Comment on above: Order Comment: Speci men Type: BLOOD SPECIMENOrdering Facility: [facility] Address: [address] [place] [address] Performed By: #### 1 9123-9, 28273-8, 2776- ####[facility] LABCLIA [id number] [place] [address] Magnesium SerPl-ncon 06-03 Magnesium [Mass/Vol] 1.6 mg/dL Low 1.7-2.3 [facility] Comment on above: Order Comment: Speci men Type: BLOOD SPECIMENOrdering Facility: [facility] Address: [address] [place] [address] Performed By: #### 1 9123-9, 94908-3, 2777-1 ####[facility] LABCLIA [id number] [place] [address] Phosphate SerPl-ncon 06-03 Phosphate [Mass/Vol] 2.7 mg/dL Normal 2.7-4.8 [facility] Comment on above: Order Comment: Speci jacki Type: BLOOD SPECIMENOrdering Facility: [facility] Address: [address] [place] [address] Performed By: #### 1 9123-9, 26626-9, 2777-1 ####[facility] LABCLIA [id number] [place] [address] Tacrolimus Bld-ncon 2022 Tacrolimus (Bld) [Mass/Vol] 5.7 ng/mL Normal 5.0-20.0 [facility] Comment on above: Order Comment: Anitra echeverria Type: BLOOD SPECIMENOrdering Facility: [facility] Address: [address] [place] [address] Result Comment: Olivia vidualized target levels for a given patient will depend on many factors (including the type of organ transplant, time since transplantation, concurrent medications, and other clinical factors), and should be assessed by those health care providers experienced in the management of immunosuppression. Reference ranges and high/low indicator flags are provided as general guidelines only. The treating physician must determine appropriate target levels/dosing based on the specific clinical situation. Test performed by chemiluminescent immunoassay using [employer] Alinity i. Performed By: #### 1 1253-2 ####[facility] LABCLIA [id number] [address] [place] PSA SerPl-mCncon 04-29-2023 Prostate specific Ag [Mass/Vol] 4.94 ng/mL High <2.60 [facility] Comment on above: Order Comment: Speci men Type: BLOOD SPECIMENOrdering Facility: [facility] Address: [place] Result Comment: Tota l PSA test methodology used is the Electrochemiluminescence Immunoassay by [employer]. Total PSA values by differing methodologies cannot be interchanged. For an individual patient, the significance of a PSA level should be interpreted in a broad clinical context, including age, race, family history, digital rectal exam, prostate size, results of prior testing (prostate biopsy, free PSA, PCA3), and use of 5-alpha reductase inhibitors. Considering the high incidence of asymptomatic cancer in the general population that may not pose an ultimate risk to a patient, the decision to recommend urological evaluation or prostate biopsy should be individualized after consideration of all these factors. REFERENCE: Saw Alexander M.D., M.P.H., Adin Richardson M.D., Ph.D., Luca Estrella M.D., Ana Regalado, M.P.H., Carlie De Los Santos, ScSara. Effect of Verification Bias on Screening for Prostate Cancer by Measurement of Prostatic Specific Antigen. N Engl J Med 2003,349:335-42. Performed By: #### 2 857-1 ####[facility] LABCLIA [id number] [place] [address] [place] BK VIRUS PCR,QUANT,Emeka 03-04 BK virus DNA TAYLOR+probe [#/Vol] Not detected Normal BK Virus DNA Not Detected by PCR. [facility] Comment on above: Order Comment: Speci men Type: BLOOD SPECIMENOrdering Facility: [facility] Address: [place] Performed By: #### B KQUAN ####[facility] LABCLIA [id number] [address] [place] CBC panel Auto (Bld)on 03-04 Erythrocyte distribution width (RBC) [Ratio] 12.9 % Normal 11.5-15.0 [facility] Comment on above: Order Comment: Speci men Type: BLOOD SPECIMENOrdering Facility: [facility] Address: [address] [place] [address] Performed By: #### 5 8410-2 ####[facility] LABCLIA [id number] [place] [address] Hematocrit (Bld) [Volume fraction] 44.1 % Normal 39.0-51.0 [facility] Comment on above: Order Comment: Speci men Type: BLOOD SPECIMENOrdering Facility: [facility] Address: [address] [place] [address] Performed By: #### 5 8410-2 ####[facility] LABIA [id number] [place] [address] Hemoglobin (Bld) [Mass/Vol] 14.9 g/dL Normal 13.0-17.0 [facility] Comment on above: Order Comment: Speci men Type: BLOOD SPECIMENOrdering Facility: [facility] Address: [address] [place] [address] Performed By: #### 5 8410-2 ####[facility] LABIA [id number] [place] [address] MCH (RBC) [Entitic mass] 32.0 pg Normal 26.0-34.0 [facility] Comment on above: Order Comment: Speci men Type: BLOOD SPECIMENOrdering Facility: [facility] Address: [address] [place] [address] Performed By: #### 5 8410-2 ####[facility] LABIA [id number] [place] [address] MCHC (RBC) [Mass/Vol] 33.8 g/dL Normal 30.5-36.0 [facility] Comment on above: Order Comment: Speci men Type: BLOOD SPECIMENOrdering Facility: [facility] Address: [address] [address] Performed By: #### 5 8410-2 ####[facility] LABIA [id number] [place] [address] MCV (RBC) [Entitic vol] 94.6 fL Normal 80.0-100.0 [facility] Comment on above: Order Comment: Speci men Type: BLOOD SPECIMENOrdering Facility: [facility] Address: [address] [place] [address] Performed By: #### 5 8410-2 ####[facility] LABIA [id number] [place] [address] Nucleated RBC (Bld) [#/Vol] 10*3/uL Normal <0.01 [facility] Comment on above: Order Comment: Speci men Type: BLOOD SPECIMENOrdering Facility: [facility] Address: [address] [place] [address] Performed By: #### 5 8410-2 ####[facility] LABIA [id number] [place] [address] Platelet mean volume (Bld) [Entitic vol] 9.0 fL Normal 9.0-12.7 [facility] Comment on above: Order Comment: Speci men Type: BLOOD SPECIMENOrdering Facility: [facility] Address: [address] [address] Performed By: #### 5 8410-2 ####[facility] LABCLIA [id number] [place] [address] Platelets (Bld) [#/Vol] 135 10*3/uL Low 150-400 [facility] Comment on above: Order Comment: Speci men Type: BLOOD SPECIMENOrdering Facility: [facility] Address: [address] [place] [address] Performed By: #### 5 8410-2 ####[facility] LABCLIA [id number] [place] [address] RBC (Bld) [#/Vol] 4.66 10*6/uL Normal 4.20-6.00 [facility] Comment on above: Order Comment: Speci men Type: BLOOD SPECIMENOrdering Facility: [facility] Address: [address] [place] [address] Performed By: #### 5 8410-2 ####[facility] LABCLIA [id number] [place] [address] WBC (Bld) [#/Vol] 6.85 10*3/uL Normal 3.70-11.00 [facility] Comment on above: Order Comment: Speci men Type: BLOOD SPECIMENOrdering Facility: [facility] Address: [address] [place] [address] Performed By: #### 5 8410-2 ####[facility] LABCLIA [id number] [place] [address] Comprehensive metabolic 2000 panelon 03-04-2023 Albumin [Mass/Vol] 4.3 g/dL Normal 3.9-4.9 [facility] Comment on above: Order Comment: Speci men Type: BLOOD SPECIMENOrdering Facility: [facility] Address: [address] [place] [address] Performed By: #### 2 4323-8, , 2776- ####[facility] LABCLIA [id number] [place] [address] ALP [Catalytic activity/Vol] 58 U/L Normal 38-113 [facility] Comment on above: Order Comment: Speci men Type: BLOOD SPECIMENOrdering Facility: [facility] Address: [address] [place] [address] Performed By: #### 2 4323-8, , 2776- ####[facility] LABCLIA [id number] [place] [address] ALT [Catalytic activity/Vol] 13 U/L Normal 10-54 [facility] Comment on above: Order Comment: Speci men Type: BLOOD SPECIMENOrdering Facility: [facility] Address: [address] [place] [address] Performed By: #### 2 4323-8, , 2776-09 ####[facility] LABCLIA [id number] [place] [address] Anion gap [Moles/Vol] 8 mmol/L Low 9-18 [facility] Comment on above: Order Comment: Speci men Type: BLOOD SPECIMENOrdering Facility: [facility] Address: [address] [place] [address] Performed By: #### 2 4323-8, , 2776-09 ####[facility] LABIA [id number] [place] [address] AST [Catalytic activity/Vol] 16 U/L Normal 14-40 [facility] Comment on above: Order Comment: Speci men Type: BLOOD SPECIMENOrdering Facility: [facility] Address: [address] [place] [address] Performed By: #### 2 4323-8, , 2776-09 ####[facility] LABIA [id number] [place] [address] Bilirubin [Mass/Vol] 1.3 mg/dL Normal 0.2-1.3 [facility] Comment on above: Order Comment: Speci men Type: BLOOD SPECIMENOrdering Facility: [facility] Address: [address] [place] [address] Performed By: #### 2 4323-8, , 2776-09 ####[facility] LABIA [id number] [place] [address] Calcium [Mass/Vol] 9.7 mg/dL Normal 8.5-10.2 [facility] Comment on above: Order Comment: Speci men Type: BLOOD SPECIMENOrdering Facility: [facility] Address: [address] [address] Performed By: #### 2 4323-8, , 2776-09 ####[facility] LABCLIA [id number] [place] [address] Chloride [Moles/Vol] 104 mmol/L Normal 97-105 [facility] Comment on above: Order Comment: Speci men Type: BLOOD SPECIMENOrdering Facility: [facility] Address: [address] [place] [address] Performed By: #### 2 4323-8, , 2776-09 ####[facility] LABIA [id number] [place] [address] CO2 [Moles/Vol] 26 mmol/L Normal 22-30 [facility] Comment on above: Order Comment: Speci men Type: BLOOD SPECIMENOrdering Facility: [facility] Address: [address] [place] [address] Performed By: #### 2 4323-8, , 2776-09 ####[facility] LABIA [id number] [place] [address] Creatinine [Mass/Vol] 1.36 mg/dL High 0.73-1.22 [facility] Comment on above: Order Comment: Speci men Type: BLOOD SPECIMENOrdering Facility: [facility] Address: [address] [place] [address] Performed By: #### 2 4323-8, , 2776-09 ####[facility] LABIA [id number] [place] [address] ESTIMATED GLOMERULAR FILTRATION RATE 58 mL/min/1.73m??? Low >=60 [facility] Comment on above: Order Comment: Speci men Type: BLOOD SPECIMENOrdering Facility: [facility] Address: [address] [place] [address] Result Comment: Katalina mated Glomerular Filtration Rate (eGFR) is calculated using the 2020 CKD-EPI creatinine equation. This equation utilizes serum creatinine, sex, and age as parameters. The creatinine assay has traceable calibration to isotope dilution-mass spectrometry. Refer to KDIGO guidelines for clinical interpretation. In patients with unstable renal function, e.g. those with acute kidney injury, the eGFR may not accurately reflect actual GFR. Performed By: #### 2 4323-8, , 2776- ####[facility] LABCLIA [id number] [place] [address] Glucose [Mass/Vol] 118 mg/dL High 74-99 [facility] Comment on above: Order Comment: Speci men Type: BLOOD SPECIMENOrdering Facility: [facility] Address: [address] [place], [place] [address] Result Comment: The [place] [employer] (ADA) provides guidance for cutoff values for fasting glucose and random glucose. The ADA defines fasting as no caloric intake for at least 8 hours. Fasting plasma glucose results between 100 to 125 mg/dL indicate increased risk for diabetes (prediabetes). Fasting plasma glucose results greater than or equal to 126 mg/dL meet the criteria for diagnosis of diabetes. In the absence of unequivocal hyperglycemia, results should be confirmed by repeat testing. In a patient with classic symptoms of hyperglycemia or hyperglycemic crisis, random plasma glucose results greater than or equal to 200 mg/dL meet the criteria for diagnosis of diabetes. Reference: Standards of Medical Care in Diabetes 2016, [place] [employer]. Diabetes Care. 2016.39(Suppl 1). Performed By: #### 2 4323-8, , 2776-09 ####[facility] LABCLIA [id number] [place] [address] Potassium [Moles/Vol] 4.2 mmol/L Normal 3.7-5.1 [facility] Comment on above: Order Comment: Speci men Type: BLOOD SPECIMENOrdering Facility: [facility] Address: [address] [place] [address] Performed By: #### 2 4323-8, , 2776-09 ####[facility] LABCLIA [id number] [place] [address] Protein [Mass/Vol] 6.3 g/dL Normal 6.3-8.0 [facility] Comment on above: Order Comment: Speci men Type: BLOOD SPECIMENOrdering Facility: [facility] Address: [address] [place] [address] Performed By: #### 2 4323-8, , 2776-09 ####[facility] LABIA [id number] [place] [address] Sodium [Moles/Vol] 138 mmol/L Normal 136-144 [facility] Comment on above: Order Comment: Speci men Type: BLOOD SPECIMENOrdering Facility: [facility] Address: [address] [place] [address] Performed By: #### 2 4323-8, , 2776-09 ####[facility] LABIA [id number] [place] [address] Urea nitrogen [Mass/Vol] 16 mg/dL Normal 9-24 [facility] Comment on above: Order Comment: Speci men Type: BLOOD SPECIMENOrdering Facility: [facility] Address: [address] [place] [address] Performed By: #### 2 4323-8, , 2776-09 ####[facility] LABIA [id number] [place] [address] Magnesium SerPl-mCncon 03-04 Magnesium [Mass/Vol] 1.6 mg/dL Low 1.7-2.3 [facility] Comment on above: Order Comment: Speci men Type: BLOOD SPECIMENOrdering Facility: [facility] Address: [address] [place] [address] Performed By: #### 2 4323-8, , 2776-09 ####[facility] LABIA [id number] [place] [address] Phosphate SerPl-mCncon 03-04 Phosphate [Mass/Vol] 2.7 mg/dL Normal 2.7-4.8 [facility] Comment on above: Order Comment: Anitra echeverria Type: BLOOD SPECIMENOrdering Facility: [facility] Address: [address] [address] Performed By: #### 2 4323-8, 29425-1, 2777-1 ####[facility] LABCLIA [id number] [place] [address] Tacrolimus Bld-[facility] 2022 Tacrolimus (Bld) [Mass/Vol] 6.0 ng/mL Normal 5.0-20.0 [facility] Comment on above: Order Comment: Anitra echeverria Type: BLOOD SPECIMENOrdering Facility: [facility] Address: [address] [address] Result Comment: Olivia vidualized target levels for a given patient will depend on many factors (including the type of organ transplant, time since transplantation, concurrent medications, and other clinical factors), and should be assessed by those health care providers experienced in the management of immunosuppression. Reference ranges and high/low indicator flags are provided as general guidelines only. The treating physician must determine appropriate target levels/dosing based on the specific clinical situation. Test performed by chemiluminescent immunoassay using [employer] Alinity i. Performed By: #### 1 1253-2 ####[facility] LABCLIA [id number] [place] [address] [place] CBC panel Auto (Bld)on 12-02 Erythrocyte distribution width (RBC) [Ratio] 12.8 % Normal 11.5-15.0 [facility] Comment on above: Order Comment: Anitra echeverria Type: BLOOD SPECIMENOrdering Facility: [facility] Address: [address] [address] Performed By: #### 5 8410-2 ####[facility] LABCLIA [id number] [place] [address] Hematocrit (Bld) [Volume fraction] 44.6 % Normal 39.0-51.0 [facility] Comment on above: Order Comment: Speci men Type: BLOOD SPECIMENOrdering Facility: [facility] Address: [address] [address] Performed By: #### 5 8410-2 ####[facility] LABCLIA [id number] [place] [address] Hemoglobin (Bld) [Mass/Vol] 14.7 g/dL Normal 13.0-17.0 [facility] Comment on above: Order Comment: Speci men Type: BLOOD SPECIMENOrdering Facility: [facility] Address: [address] [place] [address] Performed By: #### 5 8410-2 ####[facility] LABCLIA [id number] [place] [address] MCH (RBC) [Entitic mass] 31.7 pg Normal 26.0-34.0 [facility] Comment on above: Order Comment: Speci men Type: BLOOD SPECIMENOrdering Facility: [facility] Address: [address] [place] [address] Performed By: #### 5 8410-2 ####[facility] LABCLIA [id number] [place] [address] MCHC (RBC) [Mass/Vol] 33.0 g/dL Normal 30.5-36.0 [facility] Comment on above: Order Comment: Speci men Type: BLOOD SPECIMENOrdering Facility: [facility] Address: [address] [address] Performed By: #### 5 8410-2 ####[facility] LABIA [id number] [place] [address] MCV (RBC) [Entitic vol] 96.3 fL Normal 80.0-100.0 [facility] Comment on above: Order Comment: Speci men Type: BLOOD SPECIMENOrdering Facility: [facility] Address: [address] [place] [address] Performed By: #### 5 8410-2 ####[facility] LABCLIA [id number] [place] [address] Nucleated RBC (Bld) [#/Vol] 10*3/uL Normal <0.01 [facility] Comment on above: Order Comment: Speci men Type: BLOOD SPECIMENOrdering Facility: [facility] Address: [address] [place] [address] Performed By: #### 5 8410-2 ####[facility] LABCLIA [id number] [place] [address] Platelet mean volume (Bld) [Entitic vol] 8.9 fL Low 9.0-12.7 [facility] Comment on above: Order Comment: Speci men Type: BLOOD SPECIMENOrdering Facility: [facility] Address: [address] [place] [address] Performed By: #### 5 8410-2 ####[facility] LABCLIA [id number] [place] [address] Platelets (Bld) [#/Vol] 147 10*3/uL Low 150-400 [facility] Comment on above: Order Comment: Speci men Type: BLOOD SPECIMENOrdering Facility: [facility] Address: [address] [place] [address] Performed By: #### 5 8410-2 ####[facility] LABCLIA [id number] [place] [address] RBC (Bld) [#/Vol] 4.63 10*6/uL Normal 4.20-6.00 [facility] Comment on above: Order Comment: Speci men Type: BLOOD SPECIMENOrdering Facility: [facility] Address: [address] [place] [address] Performed By: #### 5 8410-2 ####[facility] LABCLIA [id number] [place] [address] WBC (Bld) [#/Vol] 6.01 10*3/uL Normal 3.70-11.00 [facility] Comment on above: Order Comment: Speci men Type: BLOOD SPECIMENOrdering Facility: [facility] Address: [address] [place] [address] Performed By: #### 5 8410-2 ####[facility] LABCLIA [id number] [place] [address] Comprehensive metabolic 2000 panelon 12-02-2022 Albumin [Mass/Vol] 4.3 g/dL Normal 3.9-4.9 [facility] Comment on above: Order Comment: Speci men Type: BLOOD SPECIMENOrdering Facility: [facility] Address: [address] [place] [address] Performed By: #### 2 4323-8, , 2776-09 ####[facility] LABCLIA [id number] [place] [address] ALP [Catalytic activity/Vol] 60 U/L Normal 38-113 [facility] Comment on above: Order Comment: Speci men Type: BLOOD SPECIMENOrdering Facility: [facility] Address: [address] [place] [address] Performed By: #### 2 4323-8, , 2776-09 ####[facility] LABCLIA [id number] [place] [address] ALT [Catalytic activity/Vol] 13 U/L Normal 10-54 [facility] Comment on above: Order Comment: Speci men Type: BLOOD SPECIMENOrdering Facility: [facility] Address: [address] [place] [address] Performed By: #### 2 4323-8, , 2776-09 ####[facility] LABCLIA [id number] [place] [address] Anion gap [Moles/Vol] 10 mmol/L Normal 9-18 [facility] Comment on above: Order Comment: Speci men Type: BLOOD SPECIMENOrdering Facility: [facility] Address: [address] [address] Performed By: #### 2 4323-8, , 2776-09 ####[facility] LABIA [id number] [place] [address] AST [Catalytic activity/Vol] 16 U/L Normal 14-40 [facility] Comment on above: Order Comment: Speci men Type: BLOOD SPECIMENOrdering Facility: [facility] Address: [address] [place] [address] Performed By: #### 2 4323-8, , 2776-09 ####[facility] LABIA [id number] [place] [address] Bilirubin [Mass/Vol] 0.8 mg/dL Normal 0.2-1.3 [facility] Comment on above: Order Comment: Speci men Type: BLOOD SPECIMENOrdering Facility: [facility] Address: [address] [place] [address] Performed By: #### 2 4323-8, , 2776-09 ####[facility] LABIA [id number] [place] [address] Calcium [Mass/Vol] 9.9 mg/dL Normal 8.5-10.2 [facility] Comment on above: Order Comment: Speci men Type: BLOOD SPECIMENOrdering Facility: [facility] Address: [address] [place] [address] Performed By: #### 2 4323-8, , 2776-09 ####[facility]IA [id number] [place] [address] Chloride [Moles/Vol] 104 mmol/L Normal 97-105 [facility] Comment on above: Order Comment: Speci men Type: BLOOD SPECIMENOrdering Facility: [facility] Address: [address] [place] [address] Performed By: #### 2 4323, , 2776-09 ####[facility] LABCLIA [id number] [place] [address] CO2 [Moles/Vol] 25 mmol/L Normal 22-30 [facility] Comment on above: Order Comment: Speci men Type: BLOOD SPECIMENOrdering Facility: [facility] Address: [address] [place] [address] Performed By: #### 2 4323-8, , 2776-09 ####[facility] LABCLIA [id number] [place] [address] Creatinine [Mass/Vol] 1.38 mg/dL High 0.73-1.22 [facility] Comment on above: Order Comment: Speci men Type: BLOOD SPECIMENOrdering Facility: [facility] Address: [address] [place] [address] Performed By: #### 2 4328, , 2776-09 ####[facility] LABIA [id number] [place] [address] ESTIMATED GLOMERULAR FILTRATION RATE 57 mL/min/1.73m??? Low >=60 [facility] Comment on above: Order Comment: Speci men Type: BLOOD SPECIMENOrdering Facility: [facility] Address: [address] [place] [address] Result Comment: Katalina mated Glomerular Filtration Rate (eGFR) is calculated using the 2020 CKD-EPI creatinine equation. This equation utilizes serum creatinine, sex, and age as parameters. The creatinine assay has traceable calibration to isotope dilution-mass spectrometry. Refer to KDIGO guidelines for clinical interpretation. In patients with unstable renal function, e.g. those with acute kidney injury, the eGFR may not accurately reflect actual GFR. Performed By: #### 2 4323-8, , 2776-09 ####[facility] LABCLIA [id number] [place] [address] Glucose [Mass/Vol] 130 mg/dL High 74-99 [facility] Comment on above: Order Comment: Anitra echeverria Type: BLOOD SPECIMENOrdering Facility: [facility] Address: [address] [place], [place] [address] Result Comment: The [place] Diabetes [employer] (ADA) provides guidance for cutoff values for fasting glucose and random glucose. The ADA defines fasting as no caloric intake for at least 8 hours. Fasting plasma glucose results between 100 to 125 mg/dL indicate increased risk for diabetes (prediabetes). Fasting plasma glucose results greater than or equal to 126 mg/dL meet the criteria for diagnosis of diabetes. In the absence of unequivocal hyperglycemia, results should be confirmed by repeat testing. In a patient with classic symptoms of hyperglycemia or hyperglycemic crisis, random plasma glucose results greater than or equal to 200 mg/dL meet the criteria for diagnosis of diabetes. Reference: Standards of Medical Care in Diabetes 2016, [place] [employer]. Diabetes Care. 2016.39(Suppl 1). Performed By: #### 2 4323-8, , 2776- ####[facility] LABCLIA [id number] [place] [address] Potassium [Moles/Vol] 4.4 mmol/L Normal 3.7-5.1 [facility] Comment on above: Order Comment: Anitra echeverria Type: BLOOD SPECIMENOrdering Facility: [facility] Address: [address] [place], [place] [address] Performed By: #### 2 4323-8, , 2776-09 ####[facility] LABIA [id number] [place] [address] Protein [Mass/Vol] 6.3 g/dL Normal 6.3-8.0 [facility] Comment on above: Order Comment: Anitra echeverria Type: BLOOD SPECIMENOrdering Facility: [facility] Address: [address] [place] [id number] Performed By: #### 2 4323-8, , 2776-09 ####[facility] LABCLIA [id number] [place] [address] Sodium [Moles/Vol] 139 mmol/L Normal 136-144 [facility] Comment on above: Order Comment: Speci men Type: BLOOD SPECIMENOrdering Facility: [facility] Address: [address] [place] [address] Performed By: #### 2 4323-8, , 2776-09 ####[facility] LABCLIA [id number] [place] [address] Urea nitrogen [Mass/Vol] 14 mg/dL Normal 9-24 [facility] Comment on above: Order Comment: Speci men Type: BLOOD SPECIMENOrdering Facility: [facility] Address: [address] [place] [address] Performed By: #### 2 4323-8, , 2776-09 ####[facility] LABIA [id number] [place] [address] Magnesium SerPl-ncon 12-02 Magnesium [Mass/Vol] 1.8 mg/dL Normal 1.7-2.3 [facility] Comment on above: Order Comment: Speci men Type: BLOOD SPECIMENOrdering Facility: [facility] Address: [address] [place] [address] Performed By: #### 2 4323-8, , 2776-09 ####[facility] LABIA [id number] [place] [address] Phosphate SerPl-mCncon 12-02 Phosphate [Mass/Vol] 2.8 mg/dL Normal 2.7-4.8 [facility] Comment on above: Order Comment: Speci men Type: BLOOD SPECIMENOrdering Facility: [facility] Address: [address] [place], [place] [address] Performed By: #### 2 4323-8, , 2776-09 ####[facility] LABCLIA [id number] [place] [address] Tacrolimus Bld-mCncon 2022 Tacrolimus (Bld) [Mass/Vol] 6.8 ng/mL Normal 5.0-20.0 [facility] Comment on above: Order Comment: Speci men Type: BLOOD SPECIMENOrdering Facility: [facility] Address: [address] [place] [address] Result Comment: Olivia vidualized target levels for a given patient will depend on many factors (including the type of organ transplant, time since transplantation, concurrent medications, and other clinical factors), and should be assessed by those health care providers experienced in the management of immunosuppression. Reference ranges and high/low indicator flags are provided as general guidelines only. The treating physician must determine appropriate target levels/dosing based on the specific clinical situation. Test performed by chemiluminescent immunoassay using Lantronix Alinity i. Performed By: #### 1 1253-2 ####[facility] LABCLIA [id number] [facility]SA[facility]ITALC[facility] [id number] [id number] [facility] CNOVon 10-17-2022 CNOV Office Visit (UROSMN ) LINK ROSEN ([id number]) 1955 M Date Time Provider Department 10/17/22 8:30 AM KELLIE, JESSE KILGORE During your visit today, we recorded the following information about you: Delbert Boogie RN 10/17/2022 8:51 AM Signed Actual procedure/procedure scheduled: Yes Performing provider/scheduled provider: Yes Patient was roomed in: Q9- 15 Patient arrived in the room at: 0745 Patient ready for procedure: 0810 The procedure started at ( Time Only): 0820 The procedure ended at: 0835 Was the procedure delayed: No The patient left the procedure room at: 0849 Delbert Boogie RN PRE PROCEDURE ASSESSMENT- Transperineal Bx Procedure/Indication: Transperineal Biopsy Latex Allergy: No Allergies reviewed and updated Yes Pre-Procedure Vital Signs: BP: 156/87 Pulse: 112 Heart Valve replacement: No Joint replacement: no Do you currently have an infection: No Anticoagulant: Yes : Aspirin - Date stopped friday Back Office UA obtained: yes Eaten prior to procedure: Yes PROCEDURE PREP- Transperineal BX Patient ID with two(2)identifiers verified by: Delbert Boogie RN Pre-Procedure Antibiotics: None taken at home nor prior to procedure Anesthetic given: Administered by MD - see Procedure Physician Note. UNIVERSAL PROTOCOL / SAFETY CHECKLIST Procedure to be performed: Transperineal Biopsy Sign in Communication: Completed Time Out: Team Confirms the Correct Patient, Correct Procedure, Correct Site and Site Marking, Correct Position (if applicable) Sign Out Discussion: Completed Delbert Boogie RN POST PROCEDURE NURSE ASSESSMENT Present along with physician during procedure exam. Delbert Boogie RN Instruction sheet given and reviewed and patient verbalizes understanding: yes Post-Procedure Vital Signs: BP: 152/85 Pulse: 100 Current pain intensity is 0 on a 0-10 pain scale. Post-Procedure Medications: none Delbert Boogie RN PATIENT EDUCATION THE FOLLOWING WAS EVALUATED Motivation To Learn: Interested Family/Significant Other Support: None - Unavailable/disinterested Cognitive Ability: Alert/Oriented Patient Learns Best By: Individual instruction Written instruction - handouts Verbal instruction The Following Influencing Factors Were Barriers To This Education Session: None The Following Physical Limitations Were Barriers To This Education Session: None Instruction Provided To:Patient Directory Operator Present: not applicable Discipline: Nursing Learning Topic: Survival Skills: Symptom Management Patient Evaluation: Verbalizes understanding: Yes Supplemental Material Given: Written Material Instructed By Delbert Boogie RN In Department Urology . Jesse Burks MD 10/17/2022 9:50 AM Signed Guided US for Transperineal Prostate Biopsy Report Name: Link Rosen MR#: [id number] Date: October 16, 2022 DIAGNOSIS: Elevated PSA: 5.77, did not get MRI as planned TRANSRECTAL ULTRASOUND: Documentation images were taken. Yes Surgeon(s)/Proceduralist(s) and Roping Machine Tender(s): Surgeon(s) and Role: * Jesse Burks - Primary Procedure(s): Systematic Transperineal Random Prostate Biopsy, Trans Rectal Ultrasound Anesthesia: Local Lidocaine Preoperative Diagnosis: Suspicion for prostate cancer Postoperative Diagnoses: Suspicion for prostate cancer Findings: Good random samples removed Procedure Narrative: After informed consent was obtained, the patient was taken to the procedure room. A time out was performed where the patient and the procedure were identified in the presence of the Nursing and Surgical Staff. The patient was placed in the dorsal lithotomy position and prepped and draped in routine fashion. Due to the complex morphology of prostate cancer, a systematic biopsy of suspected prostate cancers was required. The skin was infiltrated with lidocaine. Trans-rectal ultrasound with a guide was used to precisely biopsy the prostate. Multiple tissue cores were taken transperineally after administering approximately 20-40 cc of local anesthetic subcutaneously and in the periprostatic space. Number of Biopsy Cores Taken: see path Accidental Punctures or Lacerations: None Estimated Blood Loss: Minimal Specimens: Prostate Biopsies Implanted Devices: None Drains: None Complications: None The primary surgeon/proceduralist performed the procedure Follow up in one week to discuss pathology results. Scribed for Dr. Jesse Burks by Julia Dumont infertility medical assistant on 10/17/2022 I agree with the Chief Complaint, ROS, and Past Histories independently gathered by the clinical fire support specialist including scribe and or medical student and or DESIREE and or resident or fellow and the remaining scribed note accurately describes my personal service to the patient. Jesse Burks MD, MS [facility] (more content not included)... Normal [facility] DECIPHER GENOMIC PROFILINGon 10-17-2022 DECIPHER GENOMIC PROFILING RESULT View results in Scanned Documents link when available. Normal [facility] Comment on above: Order Comment: Speci men Type: TISSUE SPECIMENOrdering Facility: [facility] Address: [address] [place] [id number] Performed By: #### S ####[facility] LABCLIA [id number] [facility] [id number] [place] [address] [place]#### DECGEN ####DECIPHERCLIA [id number] [address] [address] SURGICAL PATHOLOGYon 023 CASE REPORT Normal [facility] Comment on above: Order Comment: Speci men Type: TISSUE SPECIMENOrdering Facility: [facility] Address: [address] [place] [address] Result Comment: Surg ica Pathology Report Case: [id number] Authorizing Provider: Jesse Burks MD Collected: 10/17/2022 09:23 AM Ordering Location: Urology Received: 10/17/2022 11:51 AM Pathologist: Gerhard Rodrigez MD Specimens: A) - PROSTATE NEEDLE BIOPSY LEFT, LT lateral anterior x2 B) - PROSTATE NEEDLE BIOPSY LEFT, LT lateral posterior x2 C) - PROSTATE NEEDLE BIOPSY LEFT, LT medial anterior x2 D) - PROSTATE NEEDLE BIOPSY LEFT, LT medial posterior x2 E) - PROSTATE NEEDLE BIOPSY RIGHT, RT lateral anterior x2 F) - PROSTATE NEEDLE BIOPSY RIGHT, RT lateral posterior x2 G) - PROSTATE NEEDLE BIOPSY RIGHT, RT medial anterior x2 H) - PROSTATE NEEDLE BIOPSY RIGHT, RT medial posterior x2 Performed By: #### S ####[facility] LABCLIA [id number] [place] [address] [place]#### DECGEN ####DECIPHERCLIA [id number] [facility], [address] [address] CLINICAL HISTORY Elevated PSA Normal [facility] Comment on above: Order Comment: Speci men Type: TISSUE SPECIMENOrdering Facility: [facility] Address: [address] [place] [address] Performed By: #### S ####[facility] [id number] [place] [address] [place]#### DECGEN ####DECIPHERCLIA [id number] [facility], [address] [address] FINAL DIAGNOSIS Normal [facility] Comment on above: Order Comment: Speci men Type: TISSUE SPECIMENOrdering Facility: [facility] Address: [address] [place] [address] Result Comment: A. P rostate, left lateral anterior, core biopsy: - Benign prostatic tissue. B. Prostate, left lateral posterior, core biopsy: - Prostatic adenocarcinoma, Jalil score 3+4=7 (Grade Group 2), involving 1/2 core(s) (2 mm tumor length, 10%). - Percentage of Jalil pattern 4 = <5%. - Cribriform morphology absent. C. Prostate, left medial anterior, core biopsy: - Benign prostatic tissue. D. Prostate, left medial posterior, core biopsy: - Prostatic adenocarcinoma, Jalil score 3+3=6 (Grade Group 1), involving 1/2 core(s) (2 mm tumor length, 15%). E. Prostate, right lateral anterior, core biopsy: - Benign prostatic tissue. F. Prostate, right lateral posterior, core biopsy: - Benign prostatic tissue. G. Prostate, right medial anterior, core biopsy: - Prostatic adenocarcinoma, Jalil score 3+3=6 (Grade Group 1), involving 1/2 core(s) (3 mm tumor length, 20%). H. Prostate, right medial posterior, core biopsy: - Benign prostatic tissue. Prostate Cancer Biopsy Summary Number of cores examined: 16 Number of cores positive: 3 Highest Grade Group: 2 Highest % of core involvement: 20% Cribriform pattern 4: No Intraductal carcinoma: No Coremaker Bench tumor block to use for additional studies: B1 Performed By: #### S ####[facility] LABCLIA [id number] [place] [address] [place]#### DECGEN ####DECIPHERCLIA [id number] [address] [address] FINAL PERFORMING LAB Normal [facility] Comment on above: Order Comment: Speci men Type: TISSUE SPECIMENOrdering Facility: [facility] Address: [address] [place] [address] Result Comment: Diag nostic interpretation performed at [facility], [address] [address] CLIA# [id number] Environmental Studies Program Director: Sachin Linn M.D. Performed By: #### S ####[facility] LABCLIA [id number] [place] [address] [place]#### DECGEN ####DECIPHERCLIA [id number] [facility], [address] [address] GROSS DESCRIPTION Normal [facility] Comment on above: Order Comment: Speci men Type: TISSUE SPECIMENOrdering Facility: [facility] Address: [address], [place] [address] Result Comment: A. P ROSTATE NEEDLE BIOPSY LEFT Received in alcoholic formalin on Telfa gauze are two segments of cylindrical tissue ranging in length from 1.0-1.3 and averaging 0.1 cm in diameter, maier and of a soft and friable consistency. Totally submitted in formalin in one cassette. B. PROSTATE NEEDLE BIOPSY LEFT Received in alcoholic formalin on Telfa gauze are two segments of cylindrical tissue ranging in length from 1.0-1.3 and averaging 0.1 cm in diameter, maier and of a soft and friable consistency. Totally submitted in formalin in one cassette. C. PROSTATE NEEDLE BIOPSY LEFT Received in alcoholic formalin on Telfa gauze are two segments of cylindrical tissue ranging in length from 1.2-1.5 and averaging 0.1 cm in diameter, maier and of a soft and friable consistency. Totally submitted in formalin in one cassette. D. PROSTATE NEEDLE BIOPSY LEFT Received in alcoholic formalin on Telfa gauze are two segments of cylindrical tissue ranging in length from 1.1-1.5 and averaging 0.1 cm in diameter, maier and of a soft and friable consistency. Totally submitted in formalin in one cassette. E. PROSTATE NEEDLE BIOPSY RIGHT Received in alcoholic formalin on Telfa gauze are two segments of cylindrical tissue ranging in length from 0.9-1.5 and averaging 0.1 cm in diameter, maier and of a soft and friable consistency. Totally submitted in formalin in one cassette. F. PROSTATE NEEDLE BIOPSY RIGHT Received in alcoholic formalin on Telfa gauze are two segments of cylindrical tissue ranging in length from 1.4-1.7 and averaging 0.1 cm in diameter, maier and of a soft and friable consistency. Totally submitted in formalin in one cassette. G. PROSTATE NEEDLE BIOPSY RIGHT Received in alcoholic formalin on Telfa gauze are two segments of cylindrical tissue ranging in length from 1.4-1.7 and averaging 0.1 cm in diameter, maier and of a soft and friable consistency. Totally submitted in formalin in one cassette. H. PROSTATE NEEDLE BIOPSY RIGHT Received in alcoholic formalin on Telfa gauze are two segments of cylindrical tissue ranging in length from 1.5-1.6 and averaging 0.1 cm in diameter, maier and of a soft and friable consistency. Totally submitted in formalin in one cassette. CL October 17, 2022 1:59 PM Gross examination performed at [facility], [address] [place] [address] Performed By: #### S ####[facility] LABCLIA [id number] [address] [address] [place]#### DECGEN ####DECIPHERCLIA [id number] [facility], [facility]. [address] [address] UA DIP, URINE (POC)on 2022 BILIRUBIN UA (POCT) Negative Negative [facility] CLARITY UA (POCT) [facility] COLOR UA (POCT) Yellow [facility] GLUCOSE UA (POCT) Negative Negative mg/dL [facility] HEMOGLOBIN/BLOOD UA (POCT) Negative Negative [facility] KETONE UA (POCT) Negative Negative mg/dL [facility] LEUKOCYTES UA (POCT) Negative Negative [facility] NITRITE UA (POCT) Negative Negative [facility] PH UA (POCT) 7.5 4.5 - 8.0 [facility] Protein Ql (U) Negative Negative mg/dL [facility] SPECIFIC GRAVITY UA (POCT) 1.020 1.005 - 1.030 [facility] UROBILINOGEN UA (POCT) 0.2 E.U./dL Normal E.U./dL [facility] US TRANSRECTAL PROSTATE (JOSE S) (POC) GUKI USE ONLYon 10-17-2022 [facility] ISOPSA ASSAY FOR UROLOGY USE ONLYon 09-18-2022 INTERPRETATION Normal [facility] Comment on above: Order Comment: Speci men Type: BLOOD SPECIMENOrdering Facility: [facility] Address: [address] [place] [address] Result Comment: In c linical studies of 429 patients undergoing biopsy, IsoPSA test had a sensitivity of 93% and specificity of 47% for predicting the presence of high grade prostate cancer ([place]>=7) on biopsy. In that study, IsoPSA had a positive predictive value of 48%, meaning that 48% of patients with IsoPSA Indicies >6.0 had a high-grade cancer ([place]>=7) detected on biopsy. Test Performed by [employer] [facility], [address] [place] [address] Performed By: #### I SOPSA ####[facility]CLIA [id number] [facility] [address] [place] [address], [facility]14 ISOPSA INDEX 6.8 Normal [facility] Comment on above: Order Comment: Speci men Type: BLOOD SPECIMENOrdering Facility: [facility] Address: [address] [place] [address] Performed By: #### I SOPSA ####[facility]CLIA [id number] [facility] [address] [place], [place] [address] TPSA RESULTS 5.940 Normal [facility] Comment on above: Order Comment: Speci men Type: BLOOD SPECIMENOrdering Facility: [facility] Address: [address] [place] [address] Performed By: #### I SOPSA ####[employer]CLIA [id number] [facility]ITALUITFELIC[facility] [place] [id number] CNOVon 09-16-2022 CNOV Office Visit (UROLMN ) LINK ROSEN ([id number]) 1955 M Date Time Provider Department 09/16/22 1:30 PM KRISTINA WHITAKER During your visit today, we recorded the following information about you: Kristina Whitaker APRN.GUIDE CHANGER 09/16/2022 2:48 PM Signed [facility] ESTABLISHED PATIENT OFFICE VISIT REASON FOR VISIT: Follow up HPI 67 year old male presenting for follow-up of elevated PSA. PSA 09/03/22 5.77 02/07/22 3.59 01/16/22 5.51 09/10/21 4.60 2/26/20 3.46 PATHOLOGY: N/A LABS: Creatinine Date Value Ref Range Status 09/03/2022 1.38 (H) 0.73 - 1.22 mg/dL Final 12/05/2018 1.22 Final Comment: NOTE: Historical EDIT hand entered Lab Results Not intended for clinical decisions, for historical reference only 03/02/2018 1.3 Final Comment: NOTE: Historical EDIT hand entered Lab Results Not intended for clinical decisions, for historical reference only 12/08/2017 1.14 Final PSA (ng/mL) Date Value 09/03/2022 5.77 (H) 01/16/2022 5.51 (H) 01/23/2009 1.11 URINALYSIS: pH, Arterial Date Value Ref Range Status 04/24/2009 7.39 7.35 - 7.45 Final Specific Witt, Ur Date Value Ref Range Status 07/01/2022 1.016 1.005 - 1.030 Final Glucose, Urine Date Value Ref Range Status 07/01/2022 Negative Negative Final Bilirubin, Urine Date Value Ref Range Status 07/01/2022 Negative Negative Final Ketones, Urine Date Value Ref Range Status 07/01/2022 Negative Negative Final Hemoglobin/Blood,Ur Date Value Ref Range Status 07/01/2022 Negative Negative Final Protein, Urine Date Value Ref Range Status 07/01/2022 Negative Negative Final Urobilinogen, Urine Date Value Ref Range Status 05/27/2011 normal Normal (<1.1) EU Nitrites Date Value Ref Range Status 07/01/2022 Negative Negative Final Leukocytes Date Value Ref Range Status 05/27/2011 neg Neg IMAGING: N/A ALLERGIES: ALLERGIES No Known Allergies MEDICATIONS: Current Outpatient Medications Medication Sig mycophenolate mofetil (CELLCEPT) 250 mg capsule Take 2 capsules by mouth twice daily. Diagnosis Code: Z94.0 Kidney Transplant predniSONE (DELTASONE) 5 mg tablet Take 1 tablet by mouth once daily. sulfamethoxazole-trimethopri m (BACTRIM,SEPTRA) 400-80 mg per tablet Take 1 tablet by mouth once daily. tacrolimus IR (PROGRAF) 1 mg capsule Take (2) capsules by mouth every morning and (1) capsule every evening CALCIUM CARBONATE/VITAMIN D3 (CALCIUM + D ORAL) Take one(1) tablet two(2) times daily. acetaminophen(TYLENOL EXTRA STRENGTH 500 MG TAB) Take two(2) tablets every six(6) hours as needed for pain. ASPIRIN 81 MG CHEWABLE TAB 1 Tab ORAL DAILY No current facility-administered medications for this visit. HISTORIES PAST MEDICAL HISTORY Diagnosis Date Coronary atherosclerosis of unspecified type of vessel, [place] or graft Mild 3-vessel Coronary artery disease Hypertension Polycystic kidney, unspecified type 1993 S/p cadaver renal transplant Umbilical hernia PAST SURGICAL HISTORY Procedure Laterality Date LAPAROSCOPY REPAIR INCISIONAL HERNIA REDUCIBLE 2001 umbilical PAST SURGICAL HISTORY OF 07/27/07 Colon Polypectomy- Tubular Adenoma PAST SURGICAL HISTORY OF 10/17 Placement of Left UE AVF x 2 TONSILLECTOMY PRIMARY/SECONDARY Tonsillectomy Social History Tobacco Use Smoking status: Never Smokeless tobacco: Never Substance Use Topics Alcohol use: No Comment: no alcohol > 2 yrs, no previous hx of abuse Drug use: No REVIEW OF SYSTEMS General: No weight loss, malaise or fevers. Genitourinary: No history of dysuria, frequency or incontinence The remainder of the ROS was reviewed and negative. PHYSICAL EXAMINATION There were no vitals taken for this visit. General: Well appearing, alert, in no acute distress, and well-hydrated, well nourished Abdominal: Soft, non-tender Genitourinary: MALE EXAM: Exam NOT Indicated ASSESSMENT: 66 year old male with history of elevated PSA, PSA increased to 5.7 from 3.59. PLAN: Will get IsoPSA and if elevated will get MRI prostate and TP biopsy with Dr burks If normal will follow up in 6 months with PSA IsoPSA Order This information was disclosed to the patient: Your doctor has offered you the IsoPSA blood test, which is intended to improve accuracy over PSA alone in determining whether clinically significant prostate cancer may be present and whether a prostate biopsy is indicated. The company offering this test, [employer] was co-founded by the [facility]. The [facility] has a minority ownership position in the company, so the [facility] indirectly benefits financially from the sale of this test. If you have any questions about this, please ask your doctor or call the [place] Management and Conflict of Interest Office at 2 (more content not included)... Normal [facility] URINALYSIS, REFLEX MICROSCOP ICon 09-16-2022 Bilirubin Ql (U) Negative Normal Negative [facility] Comment on above: Order Comment: Speci men Type: URINE SPECIMENOrdering Facility: [facility] Address: [address] Performed By: #### L [id number] ####[facility] LABCLIA [id number] [place] [address] [place] Clarity (Unsp spec) Clear Normal Clear [facility] Comment on above: Order Comment: Speci men Type: URINE SPECIMENOrdering Facility: [facility] Address: [address] [address] Performed By: #### L [id number] ####[facility] LABCLIA [id number] [place] [address] [place] Color (U) Yellow Normal Yellow [facility] Comment on above: Order Comment: Speci men Type: URINE SPECIMENOrdering Facility: [facility] Address: [address] Performed By: #### L [id number] ####[facility] LABCLIA [id number] [place] [address] [place] Glucose Test strip (U) [Mass/Vol] Negative Normal Trace, Negative [facility] Comment on above: Order Comment: Speci men Type: URINE SPECIMENOrdering Facility: [facility] Address: [address] [place], [place] [address] Performed By: #### L [id number] ####[facility] LABCLIA [id number] [place] [address] [place] Hemoglobin Ql (U) Negative Normal Negative, Trace [facility] Comment on above: Order Comment: Speci men Type: URINE SPECIMENOrdering Facility: [facility] Address: [address] [place], [place] [address] Performed By: #### L [id number] ####[facility] LABCLIA [id number] [place] [address] [place] Ketones Ql (U) Negative Normal Negative, Trace [facility] Comment on above: Order Comment: Speci men Type: URINE SPECIMENOrdering Facility: [facility] Address: [address] [place] [address] Performed By: #### L [id number] ####[facility] LABCLIA [id number] [address] STATES [facility] Leukocyte esterase Test strip Ql (U) Negative Normal Negative, 25 Yandy/mL [facility] Comment on above: Order Comment: Speci men Type: URINE SPECIMENOrdering Facility: [facility] Address: [address] Performed By: #### L [id number] ####[facility] LABIA [id number] [address] STATES [facility] Nitrite Ql (U) Negative Normal Negative [facility] Comment on above: Order Comment: Speci men Type: URINE SPECIMENOrdering Facility: [facility] Address: [address] [place], [place] [address] Performed By: #### L [id number] ####[facility] LABIA [id number] [address] pH (U) 6.0 [pH] Normal 5.0-8.0 [facility] Comment on above: Order Comment: Speci men Type: URINE SPECIMENOrdering Facility: [facility] Address: [address] [place], [place] [address] Performed By: #### L [id number] ####[facility] LABCLIA [id number] [address] STATES [facility] Protein (U) [Mass/Vol] Trace Normal Trace, Negative [facility] Comment on above: Order Comment: Speci men Type: URINE SPECIMENOrdering Facility: [facility] Address: [address] Performed By: #### L [id number] ####[facility] LABCLIA [id number] [address] [place] Specific gravity (U) [Rel density] 1.029 Normal 1.005-1.030 [facility] Comment on above: Order Comment: Speci men Type: URINE SPECIMENOrdering Facility: [facility] Address: [address] [place] [address] Performed By: #### L [id number] ####[facility] LABCLIA [id number] [address] Urobilinogen Ql (U) 1+ Abnormal Negative [facility] Comment on above: Order Comment: Speci men Type: URINE SPECIMENOrdering Facility: [facility] Address: [address] [place] [address] Performed By: #### L [id number] ####[facility] LABIA [id number] [address] Bilirubin Ql (U) Negative Negative [facility] Clarity (Unsp spec) Clear [facility] Color (U) Yellow Yellow [facility] Glucose Test strip (U) [Mass/Vol] Negative Trace, Negative [facility] Hemoglobin Ql (U) Negative Negative, Trace [facility] Ketones Ql (U) Negative Negative, Trace [facility] Leukocyte esterase Test strip Ql (U) Negative Negative, 25 Yandy/mL [facility] Nitrite Ql (U) Negative Negative [facility] pH (U) 6.0 [pH] 5.0 - 8.0 [facility] Protein (U) [Mass/Vol] Trace Trace, Negative [facility] Specific gravity (U) [Rel density] 1.029 1.005 - 1.030 [facility] Urobilinogen Ql (U) 1+ Abnormal Negative [facility] URINALYSIS, REFLEX MICROSCOP ICon 07-01-2022 Bilirubin Ql (U) Negative Negative [facility] Clarity (Unsp spec) Clear [facility] Color (U) Yellow Yellow [facility] Glucose Test strip (U) [Mass/Vol] Negative Negative [facility] Hemoglobin Ql (U) Negative Negative [facility] Ketones Ql (U) Negative Negative [facility] Leukocyte esterase Test strip Ql (U) Negative Negative [facility] Nitrite Ql (U) Negative Negative [facility] pH (U) 6.5 [pH] 5.0 - 8.0 [facility] Protein (U) [Mass/Vol] Negative Negative [facility] Specific gravity (U) [Rel density] 1.016 1.005 - 1.030 [facility] Urobilinogen Ql (U) Negative Negative [facility] ISOPSA ASSAY FOR UROLOGY USE ONLYon 02-08-2022 INTERP IsoPSA test was not performed, as the test has not been validated in patients with tPSA <4.0ng/mL. [facility] ISOPSA 0 <6.1 [facility] TPSA 3.590 0-<4 [facility] XR ankle LT min 3V*on 2020 XR ankle LT min 3V* [facility] [place] [address] [place] [address] XRay Report Signed Patient: Link Rosen MR#: [id number] : 1955 Acct:[id number] Age/Sex: 65 / M ADM Date: 02/06/21 Loc: [facility] Room: Type: [facility] Attending Dr: Chrissy Keyes DPM [place] Ordering Provider: Chrissy Keyes DPM, MS Date of Service: 02/06/21 XR/XR foot LT min 3V*: M79.672 ([id number]) XR/XR ankle LT min 3V*: M25.572 Copies to: Chrissy Keyes DPM, MS 3 viewsLEFT foot plain film COMPARISON:None HISTORY:Status post LEFT ankle fusion. No hardware failure identified. Bony alignment is adequate. Fusion changes of the ankle joint noted. Midfoot degenerative changes are present. Calcaneal spurring seen posteriorly inferiorly. Mild distal foot degeneration. No acute bony findings. XR/XR foot LT min 3V* IMPRESSION:Unremarkable postoperative changes. No hardware failure. 3 views of the LEFT ankle No hardware failure or loosening identified. Bony alignment is adequate. Healing/healed fracture of distal fibula is present. Fusion changes of the ankle noted. No acute bony findings. Soft tissue prominence is present. No subcutaneous air. IMPRESSION: Uncomplicated postsurgical changes. No hardware failure. Impression dictated by: Gama Salas M.D.02/06/2021 1:52 PM Dictation Location: [place] [address] Transcribed By: [facility] 02/06/21 1352 Dictated By: Gama Salas DO 02/06/21 1349 Signed By: 02/06/21 1352 [facility] Vital Signs Date Time Vital Sign Value Performing Clinician Jovanna lee 06-30-2023 11:10-0400 Body height 213.4 cm Usman Lowry FINISHING [employer]ER.GUIDE CHANGER Work Phone: [facility] 06-30-2023 11:10-0400 Body temperature 97.81 [degF] Usman Lowry [employer]ISHING [employer].GUIDE CHANGER Work Phone: [facility] 06-30-2023 11:10-0400 Body weight 176.45 kg Usman Lowry [employer]ISHING [employer].GUIDE CHANGER Work Phone: [facility] 06-30-2023 11:10-0400 Diastolic blood pressure 80 mm[Hg] Usman Lowry FINISHING W[employer].GUIDE CHANGER Work Phone: [facility] 06-30-2023 11:10-0400 Heart rate 91 /min Usman Lowry [employer]ISHING [employer].GUIDE CHANGER Work Phone: [facility] 06-30-2023 11:10-0400 Systolic blood pressure 127 mm[Hg] Usman العراقيd [employer]ISHING [employer]WYER.GUIDE CHANGER Work Phone: [facility] Encounters Encounter Date Encounter Type Care Provider Facility Start: 09-02-2023 End: 09-02-2023 ambulatory [facility] Facility:[facility] Start: 07-14-2023 ambulatory Usman L Lar d [employer].GUIDE CHANGER Work Phone: [facility] Comment on above: afib Start: 07-10-2023 ambulatory Usman L Lar d [employer].GUIDE CHANGER Work Phone: [facility] Comment on above: ecg Start: 07-01-2023 End: 07-01-2023 ambulatory [facility] Facility:[facility] Start: 07-01-2023 End: 07-01-2023 Nursing evaluation of patient and report Wallace Agarwal Work Phone: Hematology/Oncology Comment on above: Irregular heartbeat (Primary Dx); Polycystic kidney disease Start: 07-01-2023 Patient encounter procedure [facility] Provider [facility] Start: 06-30-2023 End: 07-01-2023 ambulatory KATHLEEN SANDRA SAMS Facility:[facility] Start: 06-30-2023 End: 06-30-2023 Patient encounter procedure Usman Lowry [employer].GUIDE CHANGER Work Phone: [facility] Comment on above: Kidney replaced by t ransplant (Primary Dx); Hypophosphatemia; Hypomagnesemia; Irregular heartbeat; Aftercare following organ transplant Start: 06-17-2023 Refill Usman sierra [employer].GUIDE CHANGER Work Phone: [facility] Comment on above: Refill Request Start: 06-03-2023 End: 06-03-2023 ambulatory KATHLEEN FLORES [facility] Facility:[facility] Start: 04-29-2023 End: 04-29-2023 ambulatory KATHLEEN SANDRA [facility] Facility:[facility] Start: 03-04-2023 End: 03-04-2023 ambulatory KATHLEEN SANDRA [facility] Facility:[facility] Start: 12-03-2022 ambulatory Usman sierra [employer].GUIDE CHANGER Work Phone: [facility] Comment on above: meds Start: 12-02-2022 End: 12-02-2022 ambulatory KATHLEEN FLORES [facility] Facility:[facility] Start: 11-05-2022 End: 11-05-2022 [facility] KATHLEEN FLORES [facility] Facility:[facility] Start: 11-05-2022 End: 11-05-2022 ambulatory Jesse Burks MD Work Phone: Urology Comment on above: Elevated PSA (Primar y Dx) Start: 11-05-2022 End: 11-05-2022 Telemedicine consultation with patient Jesse Burks MD Work Phone: [facility] Start: 10-17-2022 End: 10-18-2022 ambulatory KATHLEEN FLORES [facility] Facility:[facility] Start: 10-17-2022 End: 10-17-2022 Patient encounter procedure Jesse Burks MD Work Phone: Urology Comment on above: Elevated PSA (Primar y Dx) Start: 09-19-2022 Orders Only Kristina salas [employer].GUIDE CHANGER Work Phone: Urology Comment on above: Encounter for observ ation for other suspected diseases and conditions ruled out (Primary Dx) 09/03/23 labs Start: 09-18-2022 End: 09-19-2022 ambulatory [facility] Facility:[facility] Start: 09-16-2022 End: 09-17-2022 ambulatory Kristina Whitaker [employer].GUIDE CHANGER Work Phone: Urology Start: 09-16-2022 End: 09-16-2022 Patient encounter procedure Kristina Whitaker [employer]ING [employer].GUIDE CHANGER Work Phone: Urology Comment on above: Elevated PSA (Primar y Dx) Start: 09-11-2022 End: 09-11-2022 ambulatory [facility] Facility:[facility] Start: 07-01-2022 ambulatory Usman sierra FINISHING [employer].GUIDE CHANGER Work Phone: [facility] Start: 04-20-2022 End: 04-20-2022 ambulatory [facility] Facility: Start: 03-18-2022 Get Medical Advice Usman Lowry FINISHING [employer].GUIDE CHANGER Work Phone: [facility] Comment on above: refills Start: 03-16-2022 Refill Usman sierra [employer].GUIDE CHANGER Work Phone: [facility] Comment on above: Refill Request Start: 02-26-2022 End: 02-26-2022 ambulatory Jesse Burks MD Work Phone: Urology Comment on above: Elevated PSA (Primar y Dx) Start: 02-26-2022 End: 02-26-2022 Telemedicine consultation with patient Jesse Burks MD Work Phone: [facility] Start: 02-07-2022 Orders Only Usman tian PA Work Phone: Urology Start: 01-31-2022 End: 01-31-2022 ambulatory Jesse Burks MD Work Phone: Urology Comment on above: Elevated prostate sp ecific antigen (PSA) (Primary Dx); Elevated PSA Start: 01-31-2022 End: 01-31-2022 Telemedicine consultation with patient Jesse Burks MD Work Phone: [facility] Start: 01-30-2022 End: 01-31-2022 ambulatory [facility] Facility: Start: 07-26-2021 End: 07-27-2021 ambulatory [facility] Facility: Procedures Date Procedure Procedure Detail Performing Clinician Start: 10-17-2022 Urnls dip stick/tabl et rgnt auto w/o microscopy Jesse Burks MD Work Phone: Start: 10-17-2022 Us transrct prstate vol brachytx plnning spx Jesse Burks MD Work Phone: Start: 09-16-2022 Urnls dip stick/tabl et rgnt auto w/o microscopy Bulk Order Provider Start: 07-01-2022 Urnls dip stick/tabl et rgnt auto w/o microscopy Bulk Order Provider Start: 03-06-2021 Lipid 1996 panel - Serum or Plasma Usman Lowry APRN.GUIDE CHANGER Work Phone: Start: 05-08-2009 History of renal transplant Kidney replaced by transplant Usman LYNN Work Phone: History of renal transplant S/p cadaver renal transplant Usman Patricia PA Work Phone: History of renal transplant Kidney replaced by transplant Usman Lowry FINISHING W[employer]ER.GUIDE CHANGER Work Phone: History of renal transplant Kidney replaced by transplant Usman Lowry FINISHING W[employer]ER.GUIDE CHANGER Work Phone: History of renal transplant Kidney replaced by transplant Usman Lowry FINISHING W[employer]WYER.GUIDE CHANGER Work Phone: History of renal transplant Kidney replaced by transplant Usman Lowry FINISHING WIRE SAWYER.GUIDE CHANGER Work Phone: History of renal transplant Kidney replaced by transplant Usman Lowry FINISHING [employer]WYER.SEAN Work Phone: History of renal transplant Kidney replaced by transplant Usman L Essence GAR.SEAN Work Phone: Plan of Treatment Date Care Activity Detail Author Start: 04-29-2028 Prostate Cancer Screening Discussion Prostate Cancer Screening Discussion [facility] Start: 09-03-2027 PROSTATE CANCER SCREENING DISCUSSION PROSTATE CANCER SCREENING DISCUSSION [facility] Start: 01-16-2027 PROSTATE CANCER SCREENING DISCUSSION PROSTATE CANCER SCREENING DISCUSSION [facility] Start: 06-03-2026 Diabetes Screening Diabetes Screenin g [facility] Start: 03-06-2026 Lipid 1996 panel - Serum or Plasma Lipid Screening [facility] Start: 03-06-2026 LIPID SCREEN LIPID SCREEN [facility] Start: 12-02-2025 DIABETES SCREEN DIABETES SCREEN [facility] Start: 09-03-2025 DIABETES SCREEN DIABETES SCREEN [facility] Start: 06-03-2024 Hemoglobin/Hematocrit Hemoglobin/Hem [facility] Start: 06-03-2024 Serum Creatinine Serum Creatinine [facility] Start: 12-03-2023 HEMOGLOBIN/HEMATOCRIT HEMOGLOBIN/HEM [facility] Start: 12-03-2023 SERUM CREATININE SERUM CREATININE [facility] Start: 09-03-2023 HEMOGLOBIN/HEMATOCRIT HEMOGLOBIN/HEM [facility] Start: 09-03-2023 SERUM CREATININE SERUM CREATININE [facility] Start: 05-09-2023 Influenza vaccination Influenza Vacc ine (#1) [facility] Start: 05-05-2023 End: 07-05-2023 Prostate specific Ag [Mass/volume] in Serum or Plasma PSA/PROSTSPECAG DIAG Lab Routine Elevated PSA Expected: 05/05/2023 (Approximate), Expires: 07/05/2023 [facility] Work Phone: Comment on above: Expected: 05/05/2023 (Approximate), Expires: 07/05/2023 Start: 09-16-2022 End: 11-16-2022 ISOPSA ASSAY FOR UROLOGY USE ONLY ISOPSA ASSAY FOR UROLOGY USE ONLY Lab Routine Elevated PSA Expected: 09/16/2022, Expires: 11/16/2022 [facility] Work Phone: Comment on above: Expected: 09/16/2022 , Expires: 11/16/2022 Start: 09-08-2022 ADVANCE DIRECTIVE DISCUSSION ADVANCE DIRECTIVE DISCUSSION [facility] Start: 09-08-2022 DEPRESSION ASSESSMENT DEPRESSION ASS ESSMENT [facility] Start: 2022 ADVANCE DIRECTIVE DISCUSSION ADVANCE DIRECTIVE DISCUSSION [facility] Start: 05-09-2022 Influenza vaccination INFLUENZA (#1) [facility] Start: 02-26-2022 End: 04-28-2022 Prostate specific Ag [Mass/volume] in Serum or Plasma PSA/PROSTSPECAG DIAG Lab Routine Elevated PSA Expected: 02/26/2022, Expires: 04/28/2022 [facility] Work Phone: Comment on above: Expected: 02/26/2022 , Expires: 04/28/2022 Start: 09-08-2021 DEPRESSION ASSESSMENT DEPRESSION ASS ESSMENT [facility] Start: 03-10-2018 HEMOGLOBIN/HEMATOCRIT HEMOGLOBIN/HEM ATOCRIT [facility] Start: 06-11-2017 SERUM CREATININE SERUM CREATININE [facility] Start: 2017 RSV Vaccine (1 - 1-d ose 60+ series) RSV Vaccine (1 - 1-dose 60+ series) [facility] Start: 02-06-2015 DIABETES SCREEN DIABETES SCREEN [facility] Start: 2007 SHINGRIX VACCINE (1 of 2) SHINGRIX VACCINE (1 of 2) [facility] Start: 2002 COLOGUARD (FIT-DNA) COLOGUARD (FIT-D NA) [facility] Start: 2002 Colonoscopy COLONOSCOPY [facility] Start: 2002 COLORECTAL CANCER SCREENING COLORECTAL CANCER SCREENING [facility] Start: [address] COLONOGRAPHY [facility] Start: 2002 FECAL OCCULT BLOOD FECAL OCCULT BLOO D [facility] Start: 2002 SIGMOIDOSCOPY SIGMOIDOSCOPY [facility] Start: 1976 Hepatitis A Vaccine (1 of 2 - Risk 2-dose series) Hepatitis A Vaccine (1 of 2 - Risk 2-dose series) [facility] Start: 1976 SHINGRIX VACCINE (1 of 2) SHINGRIX VACCINE (1 of 2) [facility] Start: 1976 Urine microalbumin profile [facility] Start: 1975 ANNUAL PCP TEAM WORLD DESIGNER LOPEZ DISEASE VISIT ANNUAL PCP TEAM CHRONIC DISEASE VISIT [facility] Start: 1969 Adult depression screening assessment DEPRESSION SCREENING [facility] Start: 1963 PNEUMOCOCCAL (1 - PCV) PNEUMOCOCCAL (1 - PCV) [facility] Start: 1963 Pneumococcal Vaccine : 65+ (1 - PCV) Pneumococcal Vaccine: 65+ (1 - PCV) [facility] Start: 1963 PNEUMOCOCCAL: 65+ (1 - PCV) PNEUMOCOCCAL: 65+ (1 - PCV) [facility] Start: 1962 COVID-19 VACCINE (#1) COVID-19 VACCI NE (#1) [facility] Start: 1958 HEPATITIS A (1 of 2 - Risk 2-dose series) HEPATITIS A (1 of 2 - Risk 2-dose series) [facility] Start: 1957 COVID-19 VACCINE (#1) COVID-19 VACCI NE (#1) [facility] End: 06-29-2024 CBC panel - Blood by Automated count CBC Lab Routine Kidney replaced by transplant Every 3 months for 4 Occurrences starting 06/30/2023 until 06/29/2024 [facility] Work Phone: Comment on above: Every 3 months for 4 Occurrences starting 06/30/2023 until 06/29/2024 End: 06-29-2024 Comprehensive metabolic 2000 panel - Serum or Plasma COMP METABOLIC PANEL Lab Routine Kidney replaced by transplant Every 3 months for 4 Occurrences starting 06/30/2023 until 06/29/2024 [facility] Work Phone: Comment on above: Every 3 months for 4 Occurrences starting 06/30/2023 until 06/29/2024 End: 06-29-2024 Magnesium [Mass/volume] in Serum or Plasma MAGNESIUM BLD Lab Routine Hypomagnesemia Every 3 months for 4 Occurrences starting 06/30/2023 until 06/29/2024 [facility] Work Phone: Comment on above: Every 3 months for 4 Occurrences starting 06/30/2023 until 06/29/2024 End: 10-19-2023 Mri pelvis w/o & w/contrast material MRI PROSTATE WO/W IVCON Radiology Routine Encounter for observation for other suspected diseases and conditions ruled out 1 Occurrences starting 09/19/2022 until 10/19/2023 [facility] Work Phone: Comment on above: 1 Occurrences starti ng 09/19/2022 until 10/19/2023 End: 06-29-2024 Phosphate [Mass/volume] in Serum or Plasma PHOSPHORUS INORGANIC Lab Routine Hypophosphatemia Every 3 months for 4 Occurrences starting 06/30/2023 until 06/29/2024 [facility] Work Phone: Comment on above: Every 3 months for 4 Occurrences starting 06/30/2023 until 06/29/2024 PROSTATE BIOPSY GUKI PROSTATE BI OPSY GUKI Procedures Routine Encounter for observation for other suspected diseases and conditions ruled out Ordered: 09/19/2022 [facility] Work Phone: Comment on above: Ordered: 09/19/2022 SURGICAL PATHOLOGY SURGICAL PATH OLOGY Lab Routine Elevated PSA 10/17/2022 9:23 AM EST [facility] Work Phone: End: 06-29-2024 Tacrolimus [Mass/volume] in Blood TACROLIMUS/FK-506 BL Lab Routine Kidney replaced by transplant Every 3 months for 4 Occurrences starting 06/30/2023 until 06/29/2024 [facility] Work Phone: Comment on above: Every 3 months for 4 Occurrences starting 06/30/2023 until 06/29/2024 [facility] Immunizations Immunization Date Immunization Notes Care Provider [facility] 07-01-2022 influenza, high-dose , quadrivalent vaccine (FLUZONE HIGH DOSE QUADRIVALENT) Usman Lowry APRN.GUIDE CHANGER Work Phone: [facility] 07-01-2022 influenza virus vacc ine, unspecified formulation Usman Lowry APRN.CNP Work Phone: [facility] 07-05-2021 influenza, injectabl e, quadrivalent, contains preservative Usman LYNN Work Phone: [facility] 07-03-2020 influenza, injectabl e, quadrivalent, contains preservative Usman LYNN Work Phone: [facility] 07-05-2019 influenza, injectabl e, quadrivalent, contains preservative Usman LYNN Work Phone: [facility] 05-09-2016 influenza virus vacc ine, unspecified formulation Usman LYNN Work Phone: [facility] 06-21-2010 influenza virus vacc ine, unspecified formulation Usman LYNN Work Phone: [facility] 07-13-2009 influenza virus vacc ine, unspecified formulation Usman LYNN Work Phone: [facility] 07-13-2009 novel influenza-H1N1 -09, all formulations Usman LYNN Work Phone: [facility] 02-07-2009 pneumococcal conjuga te vaccine, 7 valent Usman LYNN Work Phone: [facility] Payers Date Payer Category Payer Medicare MEDICARE MEDICAR E A AND B [id number] 2022-Present [phone] [address] [address] [place] [address] Medicare [id number] 2022 Medicare [id number] 2022 Unknown [id number] 2021 Unknown [id number] 2019 Private Health Insurance [facility] CHOICE PLUS [id number] 2019-Present [phone] [address] [place] [address] [facility] [id number] 1959 Private Health Insurance [id number] 1959 Self-pay 1957 Unknown [id number] 1957 Unknown [id number] 1957 Unknown [id number] Social History Date Type Detail Facility Start: 05-27-2011 Tobacco smoking stat [facility] Never smoked tobacco [facility] Work Phone: Start: 07-05-2021 End: 06-30-2023 Alcohol intake Current non-drinker of alcohol (finding) [facility] Start: 01-23-2009 History SDOH Alcohol Comment no alcohol > 2 yrs, no previous hx of abuse [facility] Start: 1955 Sex Assigned At Male C [facility] Start: 01-06-2022 End: 07-01-2022 Exposure to SARS-CoV-2 (event) Not sure [facility] Start: 05-27-2011 Tobacco use and exposure Smokeless tobacco non-user [facility] Start: 09-16-2022 End: 09-20-2022 History of Social function [facility] Start: 09-16-2022 End: 09-20-2022 Tobacco use panel [facility] National Score (1-10 0), lower number is lower risk 62 [facility] Start: 01-25-2022 Gender identity Identifies as male gender (finding) [facility] Start: 01-25-2022 Sexual orientation Heterosexual (fin ding) [facility] Medical Equipment Procedure Code Equipment Code Equipment Origin al Text Equipment Identifier Dates Mesh Srg Pco Opt im 8x6in - [id number] Start: 02-05-2012 Comment on above: Description: Optimiz ed Composite mesh Clinical Notes 07-27-2021 to 07-01-2023 Briana Dailey MA - 07/01/2023 2:02 PM Usman Palmer FINISHING WIRE SAWYER.SEAN - 06/30/2023 12:07 PM EDTTelephone Encounter - LarUsman sierra APRN.GUIDE CHANGER - 06/26/2023 4:41 PM EDT Note Date & Type Note Facility 07-01-2023 Nurse Note EKG performed as ordered. Transmitted to [facility] electronically, placed in scanning. Briana Dailey MA documented in this encounter [facility] 06-30-2023 Note HNO ID: [id number] Author: Usman Lowry APRN.SEAN Service: ? Author Type: Nurse Practitioner Type: Progress Notes Filed: 06/30/2023 6:11 PM Note Text: Patient presents for renal tx follow up care The HPI and Assessment was copied from my previous note dated 07/01/2022 with changes as noted Mr. Link Rosen is a 68 year old male who presents for follow up of a dual adult DD kidney transplant. 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 Had ventral hernia repair in February 2013. Baseline scr 1.2-1.4 Brother had renal tx here in Aug 2020 PAST MEDICAL HISTORY Diagnosis Date Coronary atherosclerosis of unspecified type of vessel, [place] or graft Mild 3-vessel Coronary artery disease Hypertension Polycystic kidney, unspecified type 1993 S/p cadaver renal transplant Umbilical hernia PAST SURGICAL HISTORY Procedure Laterality Date LAPAROSCOPY REPAIR INCISIONAL HERNIA REDUCIBLE 2001 umbilical PAST SURGICAL HISTORY OF 07/27/07 Colon Polypectomy- Tubular Adenoma PAST SURGICAL HISTORY OF 10/17 Placement of Left UE AVF x 2 TONSILLECTOMY PRIMARY/SECONDARY Tonsillectomy L ankle fusion surgery on 10/22/19--required reoperation to remove hardware Office visit with me on 07/01/22 Presents today for follow up, no new concerns. Noted stool being really yellow 1-2 weeks shortly after last labs noted T bili of 1.7. Since then he has noted it seems to have returned to usual color. No yellowing of skin or sclerae. No abd pain. No fevers or chills. Appetite is very good. He is trying to lose weight. He cites being retired as a reason for wt gain over the last 3+ years. No urinary issues. No allograft pain. Mild tremaine YAJAIRA, L>R at baseline in view of hx of ankle surgery. No cough, shortness of breath, no chest pain or palpitations. No lightheadedness or dizziness. Occasional headaches but he believes related to excessive screen time on the computer. Energy is variable. He tries to be active. BP - standardized method Pulse 1 BP #1: 139/82 Pulse #1: 78 beats/min 2 BP #2 : 131/79 Pulse #2 : 93 beats/min 3 BP #3 : 111/79 Pulse #3 : 102 beats/min Average Average BP: 127/80 Average Pulse: 91 beats/min Orthostatic vitals Supine Sitting Standing Standing BP : 140/67 Standing pulse : 71 BP cuff location BP cuff location: Left upper arm BP cuff size BP cuff size: extra large adult Comments for BP values First BP (right) First BP (left) BP - standardized method Pulse 1 BP #1: 139/82 Pulse #1: 78 beats/min 2 BP #2 : 131/79 Pulse #2 : 93 beats/min 3 BP #3 : 111/79 Pulse #3 : 102 beats/min Average Average BP: 127/80 Average Pulse: 91 beats/min Orthostatic vitals Supine Sitting Standing Standing BP : 140/67 Standing pulse : 71 BP cuff location BP cuff location: Left upper arm BP cuff size BP cuff size: extra large adult Comments for BP values First BP (right) First BP (left) Last 3 Encounter BP Readings: Date: BP: 06/30/2023 127/80 07/01/2022 138/83 01/16/2022 137/82 Estimated Creatinine Clearance: 92.8 mL/min (A) (based on SCr of 1.48 mg/dL (H)). eGFR-All Other Races Date Value 06/11/2016 59 . 03/02/2016 56 11/15/2013 >60 . 05/31/2013 58 . 11/23/2012 57 . Estimated Glomerular Filtration Rate (mL/min/1.73m?) Date Value 06/03/2023 52 03/04/2023 58 12/02/2022 57 09/03/2022 57 BUN Date Value 06/03/2023 19 mg/dL 03/04/2023 16 mg/dL 12/02/2022 14 mg/dL 12/08/2017 14 09/13/2017 20 05/31/2017 18 Creatinine Date Value 06/03/2023 1.48 mg/dL 03/04/2023 1.36 mg/dL 12/02/2022 1.38 mg/dL 12/05/2018 1.22 03/02/2018 1.3 12/08/2017 1.14 Sodium Date Value 06/03/2023 141 mmol/L 03/04/2023 138 mmol/L 12/02/2022 139 mmol/L 12/08/2017 139 09/13/2017 140 05/31/2017 141 Potassium Date Value 06/03/2023 4.3 mmol/L 03/04/2023 4.2 mmol/L 12/02/2022 4.4 mmol/L 12/08/2017 3.8 09/13/2017 4 05/31/2017 4.1 Chloride Date Value 06/03/2023 106 mmol/L 03/04/2023 104 mmol/L 12/02/2022 104 mmol/L 12/08/2017 107 09/13/2017 107 05/31/2017 107 CO2 Date Value 06/03/2023 26 mmol/L 03/04/2023 26 mmol/L 12/02/2022 25 mmol/L 12/08/2017 23 09/13/2017 24 05/31/2017 26 Calcium (no units) Date Value 12/08/2017 9.6 09/13/2017 9.6 05/31/2017 9.5 Calcium, Total (mg/dL) Date Value 06/03/2023 10.1 03/04/2023 9.7 12/02/2022 9.9 Magnesium Date Value 06/03/2023 1.6 mg/dL 03/04/2023 1.6 mg/dL 12/02/2022 1.8 mg/dL 09/03/2016 1.5 03/02/2016 1.6 12/16/2015 1.5 Phosphorus Date Value 06/03/2023 2.7 mg/dL 03/04/2023 2.7 mg/dL 12/02/2022 2.8 mg/dL 12/08/2017 2.9 09/13/2017 2.9 05/31/2017 2.6 PTH, Intact Date Value 06/05/2015 81 12/07 (more content not included)... [facility] 06-30-2023 Note Patient Outreach (ZENOBIA DMMN) ------ LINK ROSEN ([id number]) 1955 M Date Time Provider Department 06/30/23 USMAN LOWRY During your visit today, we recorded the following information about you: Allergies As of Date: 06/30/2023 (No Known Allergies) Date Reviewed: 06/30/2023 Reviewed by: Barbara Darden MA - Fully Assessed Visit Diagnosis:Screening for genitourinary condition [Z13.89] Order(s):URINALYSIS, REFLEX MICROSCOPIC [WDL5379] Order #: [id number]. #:[id number] Prescriptions as of 07/03/2023 - mycophenolate mofetil (CELLCEPT) 250 mg capsule take 2 capsules by mouth twice a day - predniSONE (DELTASONE) 5 mg tablet take 1 tablet by mouth once daily - sulfamethoxazole-trimethoprim (BACTRIM) 400-80 mg per tablet take 1 tablet by mouth once daily - tacrolimus IR (PROGRAF) 1 mg capsule Take(1) capsule by mouth twice daily - gabapentin (NEURONTIN) 300 mg capsule Take 300 mg by mouth twice daily. - CALCIUM CARBONATE/VITAMIN D3 (CALCIUM + D ORAL) Take one(1) tablet two(2) times daily. - ASPIRIN 81 MG CHEWABLE TAB 1 Tab ORAL DAILY Meds Comments as of 02/22/2010: Patient states he doesn't always take Pepcid. 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 Link Rosen is a 68 year old male who presents for follow up of a dual adult DD kidney transplant. 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 Had ventral hernia repair in February 2013. Baseline scr 1.2-1.4 Brother had renal tx here in Aug 2020 PAST MEDICAL HISTORY Diagnosis Date Coronary atherosclerosis of unspecified type of vessel, [place] or graft Mild 3-vessel Coronary artery disease Hypertension Polycystic kidney, unspecified type 1993 S/p cadaver renal transplant Umbilical hernia PAST SURGICAL HISTORY Procedure Laterality Date LAPAROSCOPY REPAIR INCISIONAL HERNIA REDUCIBLE 2001 umbilical PAST SURGICAL HISTORY OF 07/27/07 Colon Polypectomy- Tubular Adenoma PAST SURGICAL HISTORY OF 10/17 Placement of Left UE AVF x 2 TONSILLECTOMY PRIMARY/SECONDARY <AGE 14 Tonsillectomy L ankle fusion surgery on 10/22/19--required reoperation to remove hardware Office visit with me on 07/01/22 Presents today for follow up, no new concerns. Noted stool being really yellow 1-2 weeks shortly after last labs noted T bili of 1.7. Since then he has noted it seems to have returned to usual color. No yellowing of skin or sclerae. No abd pain. No fevers or chills. Appetite is very good. He is trying to lose weight. He cites being retired as a reason for wt gain over the last 3+ years. No urinary issues. No allograft pain. Mild tremaine YAJAIRA, L>R at baseline in view of hx of ankle surgery. No cough, shortness of breath, no chest pain or palpitations. No lightheadedness or dizziness. Occasional headaches but he believes related to excessive screen time on the computer. Energy is variable. He tries to be active. BP - standardized method Pulse 1 BP #1: 139/82 Pulse #1: 78 beats/min 2 BP #2 : 131/79 Pulse #2 : 93 beats/min 3 BP #3 : 111/79 Pulse #3 : 102 beats/min Average Average BP: 127/80 Average Pulse: 91 beats/min Orthostatic vitals Supine Sitting Standing Standing BP : 140/67 Standing pulse : 71 BP cuff location BP cuff location: Left upper arm BP cuff size BP cuff size: extra large adult Comments for BP values First BP (right) First BP (left) BP - standardized method Pulse 1 BP #1: 139/82 Pulse #1: 78 beats/min 2 BP #2 : 131/79 Pulse #2 : 93 beats/min 3 BP #3 : 111/79 Pulse #3 : 102 beats/min Average Average BP: 127/80 Average Pulse: 91 beats/min Orthostatic vitals Supine Sitting Standing Standing BP : 140/67 Standing pulse : 71 BP cuff location BP cuff location: Left upper arm BP cuff size BP cuff size: extra large adult Comments for BP values First BP (right) First BP (left) Last 3 Encounter BP Readings: Date: BP: 06/30/2023 127/80 07/01/2022 138/83 01/16/2022 137/82 Estimated Creatinine Clearance: 92.8 mL/min (A) (based on SCr of 1.48 mg/dL (H)). eGFR-All Other Races Date Value 06/11/2016 59 . 03/02/2016 56 11/15/2013 >60 . 05/31/2013 58 . 11/23/2012 57 . Estimated Glomerular Filtration Rate (mL/min/1.73m ) Date Value 06/03/2023 52 03/04/2023 58 12/02/2022 57 09/03/2022 57 BUN Date Value 06/03/2023 19 mg/dL 03/04/2023 16 mg/dL 12/02/2022 14 mg/dL 12/08/2017 14 09/13/2017 20 05/31/2017 18 Creatinine Date Value 06/03/2023 1.48 mg/dL 03/04/2023 1.36 mg/dL 12/02/2022 1.38 mg/dL 12/05/2018 1.22 03/02/2018 1.3 12/08/2017 1.14 Sodium Date Value 06/03/2023 141 mmol/L 03/04/2023 138 mmol/L 12/02/2022 139 mmol/L 12/08/2017 139 09/13/2017 140 05/31/2017 141 Potassium Date Value 06/03/2023 4.3 mmol/L 03/04/2023 4.2 mmol/L 12/02/2022 4.4 mmol/L 12/08/2017 3.8 09/13/2017 4 05/31/2017 4.1 Chloride Date Value 06/03/2023 106 mmol/L 03/04/2023 104 mmol/L 12/02/2022 104 mmol/L 12/08/2017 107 09/13/2017 107 05/31/2017 107 CO2 Date Value 06/03/2023 26 mmol/L 03/04/2023 26 mmol/L 12/02/2022 25 mmol/L 12/08/2017 23 09/13/2017 24 05/31/2017 26 Calcium (no units) Date Value 12/08/2017 9.6 09/13/2017 9.6 05/31/2017 9.5 Calcium, Total (mg/dL) Date Value 06/03/2023 10.1 03/04/2023 9.7 12/02/2022 9.9 Magnesium Date Value 06/03/2023 1.6 mg/dL 03/04/2023 1.6 mg/dL 12/02/2022 1.8 mg/dL 09/03/2016 1.5 03/02/2016 1.6 12/16/2015 1.5 Phosphorus Date Value 06/03/2023 2.7 mg/dL 03/04/2023 2.7 mg/dL 12/02/2022 2.8 mg/dL 12/08/2017 2.9 09/13/2017 2.9 05/31/2017 2.6 PTH, Intact Date Value 06/05/2015 81 12/07/2014 87 05/31/2013 80 pg/mL Vitamin D 25 Hydroxy Date Value 12/07/2014 47.7 01/24/2014 45 11/15/2013 46.2 ng/mL Tacrolimus/FK506 (ng/mL) Date Value 06/03/2023 5.7 03/04/2023 6.0 12/02/2022 6.8 09/10/2021 10.1 06/05/2021 9.7 03/06/2021 13.6 Sirolimus/Rapamune (ng/mL) Date Value 10/05/2009 <1.0 BK Virus DNA Quant (copies/mL) Date Value 06/05/2021 Negative for BK virus DNA by PCR 06/05/2021 Test reordered by [facility]. 03/06/2021 Negative for BK virus DNA by PCR 12/02/2020 Negative for BK virus DNA by PCR PHYSICAL EXAM: BP 127/80 (BP Site: Left Arm, BP Position: Sitting, BP Cuff Size: Extra Large Adult) Pulse 91 Temp 36.6 C (97.8 F) (Oral) Ht 213.4 cm (7') Wt (!) 176.4 kg (389 lb) BMI 38.76 kg/m General no acute distress EYES Sclerae anicteric, wearing corrective lenses NECK supple, no lymphadenopathy or JVD HEART: irregular, no murmurs clicks or gallops LUNGS: CTA ABD Soft non tender bowel sounds x 4 quads EXT tremaine YAJAIRA, (+) left ankle edema related to surgery, wearing compression SKIN no rash or ulceration PSYCH alert and oriented x 3 IMPRESSION s/p renal tx, stable allograft function with labs as above, UA negative Immunosuppression MMF 500mg BID Pred 5mg daily TAC 09/08; level 5.7 Blood Pressure acceptable control without medication rx Irregular heartbeat--he is asymptomatic Elevated PSA followed by Urol here Elevated bilirubin--noted yellow stool transiently;no other symptoms Hypophos/mag--update with next labs PLAN Standing labs updated for LAI Rakel every 3 months continue same meds repeat hepatic function panel--will defer as per his request and clinically no evidence to correlate with elevated bili, suspect this was transient 'Oral hydration as tolerated Avoid NSAIDS and iodinated contrast exposure Exercise as tolerated Health Maintenance as per PCP, followed every 6 months Check EKG today, irregular heartbeat not prev noted. RTC [address] Thad Lowry, FINISHING WIRE SAWYER.GUIDE CHANGER documented in this encounter [facility] 06-26-2023 Miscellaneous Notes The following approved medication requests have been transmitted electronically. Requested Prescriptions Signed Prescriptions Disp Refills mycophenolate mofetil (CELLCEPT) 250 mg capsule 360 capsule 3 Sig: take 2 capsules by mouth twice a day Authorizing Provider: USMAN LOWRY predniSONE (DELTASONE) 5 mg tablet 90 tablet 3 Sig: take 1 tablet by mouth once daily Authorizing Provider: USMAN LOWRY sulfamethoxazole-trimethoprim (BACTRIM) 400-80 mg per tablet 90 tablet 3 Sig: take 1 tablet by mouth once daily Authorizing Provider: USMAN LOWRY APRN.GUIDE CHANGER Patient's request for medication is as follows: Requested Prescriptions Pending Prescriptions Disp Refills mycophenolate mofetil (CELLCEPT) 250 mg capsule [Pharmacy Med Name: MYCOPHENOLATE 250 MG CAPSULE] 360 capsule 3 Sig: take 2 capsules by mouth twice a day predniSONE (DELTASONE) 5 mg tablet [Pharmacy Med Name: PREDNISONE 5 MG TABLET] 90 tablet 3 Sig: take 1 tablet by mouth once daily sulfamethoxazole-trimethoprim (BACTRIM) 400-80 mg per tablet [Pharmacy Med Name: SULFAMETHOXAZOLE-TMP SS TABLET] 90 tablet 3 Sig: take 1 tablet by mouth once daily Please approve the above prescription(s) to electronically send to pharmacy. Cabrera Grant documented in this encounter [facility] 12-05-2022 Miscellaneous Notes The following approved medication requests have been transmitted electronically. Requested Prescriptions Signed Prescriptions Disp Refills tacrolimus IR (PROGRAF) 1 mg capsule 270 capsule 3 Sig: Take(1) capsule by mouth twice daily Usman Lowry APRN.GUIDE CHANGER documented in this encounter [facility] 11-05-2022 Note HNO ID: [id number] Author: Jesse Burks MD Service: ? Author Type: Physician Type: Progress Notes Filed: 11/11/2022 8:26 AM Note Text: VIRTUAL VISIT FOLLOW UP PATIENT: Link Rosen [id number] 11/05/2022 This is a virtual visit using Car in the Cloud video visit. It required patient-provider interaction for the medical decision making as documented below. This clinic note was copied and updated from previous note from 09/16/2022 Chief Complaint: Follow up for elevated PSA with biopsy showing prostate cancer History of Present Illness: Link Rosen is a very pleasant 67 year old male who has a history of elevated PSA. Interval Hx: The patient is visiting today to review results of surgical pathology 10/17/22 Prostate Cancer Biopsy Summary Number of cores examined: 16 Number of cores positive: 3 Highest Grade Group: 2 Highest % of core involvement: 20% Cribriform pattern 4: No Intraductal carcinoma: No Coremaker Bench tumor block to use for additional studies: B1 Physical Exam (via video enabled technology) Patient is a 67 year old male Constitutional: Vitals: There were no vitals taken for this visit. General Appearance Adult: Alert, no acute distress, oriented Lungs/Repiratory: no respiratory distress, or pursed lip breathing Psych: affect and mood normal Abdomen: Estimated body mass index is 39.46 kg/m? as calculated from the following: Height as of 07/01/22: 213.4 cm (7'). Weight as of 07/01/22: 179.6 kg (396 lb). Labs and Pathology: Surgical Pathology 10/17/2022 FINAL DIAGNOSIS A. Prostate, left lateral anterior, core biopsy: - Benign prostatic tissue. B. Prostate, left lateral posterior, core biopsy: - Prostatic adenocarcinoma, [place] score 3+4=7 (Grade Group 2), involving 1/2 core(s) (2 mm tumor length, 10%). - Percentage of [place] pattern 4 = <5%. - Cribriform morphology absent. C. Prostate, left medial anterior, core biopsy: - Benign prostatic tissue. D. Prostate, left medial posterior, core biopsy: - Prostatic adenocarcinoma, Jalil score 3+3=6 (Grade Group 1), involving 1/2 core(s) (2 mm tumor length, 15%). E. Prostate, right lateral anterior, core biopsy: - Benign prostatic tissue. F. Prostate, right lateral posterior, core biopsy: - Benign prostatic tissue. G. Prostate, right medial anterior, core biopsy: - Prostatic adenocarcinoma, [place] score 3+3=6 (Grade Group 1), involving 1/2 core(s) (3 mm tumor length, 20%). H. Prostate, right medial posterior, core biopsy: - Benign prostatic tissue. Prostate Cancer Biopsy Summary Number of cores examined: 16 Number of cores positive: 3 Highest Grade Group: 2 Highest % of core involvement: 20% Cribriform pattern 4: No Intraductal carcinoma: No Coremaker Bench tumor block to use for additional studies: B1 IsoPSA 09/18/2022 Component 1 mo ago IsoPSA 6.8 TPSA Results 5.940 I personally reviewed all applicable laboratory and pathology data reviewed with patient Significant for I spent 10 minutes reviewing outside and past medical records and my findings are noted in the HPI and assessment and plan. Imaging: N/A Assessment and Plan: 1.)This is a 67 year old male with history of elevated PSA, PSA increased to 5.7 from 3.59 with biopsy showing Low and intermediate risk prostate cancer. Plan: 1.)Recommend Genomics testing and repeat PSA to see if active surveillance is a possibility. Discussed if it comes back low risk then we will proceed with active surveillance. Also discussed if it comes back high risk, we will consider the treatment options Follow up in 6 months with PSA done prior to visit Recommend watching the low risk prostate cancer with a combination of MRIs every one to two years, PSAs every 6 months, digital rectal exams periodically, and repeat biopsy when indicated (usually at least one more if only one biopsy has occurred) Discussed the literature supporting ACTIVE SURVEILLANCE including the observational data in the [place] and [place] showing an extremely high cancer specific survival. We also discussed the PIVOT trial demonstrating that treating low risk prostate cancer does not extend survival. The patient has an extremely low risk of dying from PC in the coming years with observation. There are significant risks with all the prostate cancer treatment types. We do acknowledge that 1-3% from prostate cancer on surveillance and there is a risk of progression to non-curable disease and even even while following the protocol exactly. About 40% will progress to need treatment in the next 10 years, but 60% will stay disease free and untreated for 10-15 years at least. This visit was conducted as a video visit and lasted [address] Jesse Burks by Julia Dumont, infertility medical assistant on 11/05/2022 I agree with the Chief Complaint, ROS, and Past Histories independently gathered by the clinical fire support specialist including sc (more content not included)... [facility] 11-05-2022 History of Present illness Narrative VIRTUAL VISIT FOLLOW UP PATIENT: Link Rosen [id number] 11/05/2022 This is a virtual visit using Car in the Cloud video visit. It required patient-provider interaction for the medical decision making as documented below. This clinic note was copied and updated from previous note from 09/16/2022 Chief Complaint: Follow up for elevated PSA with biopsy showing prostate cancer History of Present Illness: Link Rosen is a very pleasant 67 year old male who has a history of elevated PSA. Interval Hx: The patient is visiting today to review results of surgical pathology 10/17/22 Prostate Cancer Biopsy Summary Number of cores examined: 16 Number of cores positive: 3 Highest Grade Group: 2 Highest % of core involvement: 20% Cribriform pattern 4: No Intraductal carcinoma: No Coremaker Bench tumor block to use for additional studies: B1 Physical Exam (via video enabled technology) Patient is a 67 year old male Constitutional: Vitals: There were no vitals taken for this visit. General Appearance Adult: Alert, no acute distress, oriented Lungs/Repiratory: no respiratory distress, or pursed lip breathing Psych: affect and mood normal Abdomen: Estimated body mass index is 39.46 kg/m as calculated from the following: Height as of 07/01/22: 213.4 cm (7'). Weight as of 07/01/22: 179.6 kg (396 lb). Labs and Pathology: Surgical Pathology 10/17/2022 FINAL DIAGNOSIS A. Prostate, left lateral anterior, core biopsy: - Benign prostatic tissue. B. Prostate, left lateral posterior, core biopsy: - Prostatic adenocarcinoma, Jalil score 3+4=7 (Grade Group 2), involving 1/2 core(s) (2 mm tumor length, 10%). - Percentage of [place] pattern 4 = <5%. - Cribriform morphology absent. C. Prostate, left medial anterior, core biopsy: - Benign prostatic tissue. D. Prostate, left medial posterior, core biopsy: - Prostatic adenocarcinoma, [place] score 3+3=6 (Grade Group 1), involving 1/2 core(s) (2 mm tumor length, 15%). E. Prostate, right lateral anterior, core biopsy: - Benign prostatic tissue. F. Prostate, right lateral posterior, core biopsy: - Benign prostatic tissue. G. Prostate, right medial anterior, core biopsy: - Prostatic adenocarcinoma, [place] score 3+3=6 (Grade Group 1), involving 1/2 core(s) (3 mm tumor length, 20%). H. Prostate, right medial posterior, core biopsy: - Benign prostatic tissue. Prostate Cancer Biopsy Summary Number of cores examined: 16 Number of cores positive: 3 Highest Grade Group: 2 Highest % of core involvement: 20% Cribriform pattern 4: No Intraductal carcinoma: No Coremaker Bench tumor block to use for additional studies: B1 IsoPSA 09/18/2022 Component 1 mo ago IsoPSA 6.8 TPSA Results 5.940 I personally reviewed all applicable laboratory and pathology data reviewed with patient Significant for I spent 10 minutes reviewing outside and past medical records and my findings are noted in the HPI and assessment and plan. Imaging: N/A Assessment and Plan: 1.)This is a 67 year old male with history of elevated PSA, PSA increased to 5.7 from 3.59 with biopsy showing Low and intermediate risk prostate cancer. Plan: 1.)Recommend Genomics testing and repeat PSA to see if active surveillance is a possibility. Discussed if it comes back low risk then we will proceed with active surveillance. Also discussed if it comes back high risk, we will consider the treatment options Follow up in 6 months with PSA done prior to visit Recommend watching the low risk prostate cancer with a combination of MRIs every one to two years, PSAs every 6 months, digital rectal exams periodically, and repeat biopsy when indicated (usually at least one more if only one biopsy has occurred) Discussed the literature supporting ACTIVE SURVEILLANCE including the observational data in the [place] and [place] showing an extremely high cancer specific survival. We also discussed the PIVOT trial demonstrating that treating low risk prostate cancer does not extend survival. The patient has an extremely low risk of dying from PC in the coming years with observation. There are significant risks with all the prostate cancer treatment types. We do acknowledge that 1-3% from prostate cancer on surveillance and there is a risk of progression to non-curable disease and even even while following the protocol exactly. About 40% will progress to need treatment in the next 10 years, but 60% will stay disease free and untreated for 10-15 years at least. This visit was conducted as a video visit and lasted [address]. [address] Jesse Burks by emerita Hackett scribe on 11/05/2022 I agree with the Chief Complaint, ROS, and Past Histories independently gathered by the clinical fire support specialist including scribe and or medical student and or DESIREE and or resident or fellow and the remaining scribed note accurately describes my personal service to the patient. Jesse Burks MD, MS [facility] [place] [facility] documented in this encounter [facility] 10-17-2022 Note HNO ID: [id number] Author: Delbert Boogie RN Service: ? Author Type: Registered Nurse Type: Progress Notes Filed: 10/17/2022 9:50 AM Note Text: UNIVERSAL PROTOCOL / SAFETY CHECKLIST Procedure to be Performed: transperineal Sign In: A Moment of CARE was completed. Personnel directly involved with the procedure wore the appropriate PPE (Personal Protective Equipment). No special equipment needed. Patient/Surrogate Stated/Verified: PATIENT VERIFIED(optional for EMERGENT procedures): Patient name, Date of , Relevant allergies, and The intended procedure Time Out Communication: Intended patient and procedure match the source documents. Consent documented and matches the intended procedure. Relevant labs, photos, and/or imaging studies have been reviewed. Correct side/site marked and visible. Medications required for procedure verified. No fire risk assessment and interventions applicable. No implant(s) inserted. Sign Out: SIGN OUT (optional for EMERGENT procedures): All specimen containers correctly labeled. All instruments, equipment, possible retained foreign bodies accounted for. Post-procedure follow-up management communicated and Plan of Care Visit completed when applicable. Delbert Boogie RN [facility] 10-17-2022 Note HNO ID: [id number] Author: Jesse Burks MD Service: ? Author Type: Physician Type: Progress Notes Filed: 10/17/2022 9:50 AM Note Text: Guided US for Transperineal Prostate Biopsy Report Name: Link Rosen MR#: [id number] Date: October 16, 2022 DIAGNOSIS: Elevated PSA: 5.77, did not get MRI as planned TRANSRECTAL ULTRASOUND: Documentation images were taken. Yes Surgeon(s)/Proceduralist(s) and Roping Machine Tender(s): Surgeon(s) and Role: * Jesse Burks - Primary Procedure(s): Systematic Transperineal Random Prostate Biopsy, Trans Rectal Ultrasound Anesthesia: Local Lidocaine Preoperative Diagnosis: Suspicion for prostate cancer Postoperative Diagnoses: Suspicion for prostate cancer Findings: Good random samples removed Procedure Narrative: After informed consent was obtained, the patient was taken to the procedure room. A time out was performed where the patient and the procedure were identified in the presence of the Nursing and Surgical Staff. The patient was placed in the dorsal lithotomy position and prepped and draped in routine fashion. Due to the complex morphology of prostate cancer, a systematic biopsy of suspected prostate cancers was required. The skin was infiltrated with lidocaine. Trans-rectal ultrasound with a guide was used to precisely biopsy the prostate. Multiple tissue cores were taken transperineally after administering approximately 20-40 cc of local anesthetic subcutaneously and in the periprostatic space. Number of Biopsy Cores Taken: see path Accidental Punctures or Lacerations: None Estimated Blood Loss: Minimal Specimens: Prostate Biopsies Implanted Devices: None Drains: None Complications: None The primary surgeon/proceduralist performed the procedure Follow up in one week to discuss pathology results. Scribed for Dr. Jesse Burks by emerita Hackett scribe on 10/17/2022 I agree with the Chief Complaint, ROS, and Past Histories independently gathered by the clinical fire support specialist including scribe and or medical student and or DESIREE and or resident or fellow and the remaining scribed note accurately describes my personal service to the patient. Jesse Burks MD, MS [facility] [place] [facility] 10-17-2022 History of Present illness Narrative UNIVERSAL PROTOCOL / SAFETY CHECKLIST Procedure to be Performed: transperineal Sign In: A Moment of CARE was completed. Personnel directly involved with the procedure wore the appropriate PPE (Personal Protective Equipment). No special equipment needed. Patient/Surrogate Stated/Verified: PATIENT VERIFIED(optional for EMERGENT procedures): Patient name, Date of , Relevant allergies, and The intended procedure Time Out Communication: Intended patient and procedure match the source documents. Consent documented and matches the intended procedure. Relevant labs, photos, and/or imaging studies have been reviewed. Correct side/site marked and visible. Medications required for procedure verified. No fire risk assessment and interventions applicable. No implant(s) inserted. Sign Out: SIGN OUT (optional for EMERGENT procedures): All specimen containers correctly labeled. All instruments, equipment, possible retained foreign bodies accounted for. Post-procedure follow-up management communicated and Plan of Care Visit completed when applicable. Delbert Boogie RN Guided US for Transperineal Prostate Biopsy Report Name: Link Rosen MR#: [id number] Date: October 16, 2022 DIAGNOSIS: Elevated PSA: 5.77, did not get MRI as planned TRANSRECTAL ULTRASOUND: Documentation images were taken. Yes Surgeon(s)/Proceduralist(s) and Roping Machine Tender(s): Surgeon(s) and Role: * Jesse Burks - Primary Procedure(s): Systematic Transperineal Random Prostate Biopsy, Trans Rectal Ultrasound Anesthesia: Local Lidocaine Preoperative Diagnosis: Suspicion for prostate cancer Postoperative Diagnoses: Suspicion for prostate cancer Findings: Good random samples removed Procedure Narrative: After informed consent was obtained, the patient was taken to the procedure room. A time out was performed where the patient and the procedure were identified in the presence of the Nursing and Surgical Staff. The patient was placed in the dorsal lithotomy position and prepped and draped in routine fashion. Due to the complex morphology of prostate cancer, a systematic biopsy of suspected prostate cancers was required. The skin was infiltrated with lidocaine. Trans-rectal ultrasound with a guide was used to precisely biopsy the prostate. Multiple tissue cores were taken transperineally after administering approximately 20-40 cc of local anesthetic subcutaneously and in the periprostatic space. Number of Biopsy Cores Taken: see path Accidental Punctures or Lacerations: None Estimated Blood Loss: Minimal Specimens: Prostate Biopsies Implanted Devices: None Drains: None Complications: None The primary surgeon/proceduralist performed the procedure Follow up in one week to discuss pathology results. Scribed for Dr. Jesse Burks by emerita Hackett scribe on 10/17/2022 I agree with the Chief Complaint, ROS, and Past Histories independently gathered by the clinical fire support specialist including scribe and or medical student and or DESIREE and or resident or fellow and the remaining scribed note accurately describes my personal service to the patient. Jesse Burks MD, MS [facility] [place] [facility] documented in this encounter [facility] 10-17-2022 Nurse Note Actual procedure/procedure scheduled: Yes Performing provider/scheduled provider: Yes Patient was roomed in: Q9- 15 Patient arrived in the room at: 0745 Patient ready for procedure: 0810 The procedure started at ( Time Only): 0820 The procedure ended at: 0835 Was the procedure delayed: No The patient left the procedure room at: 0849 Delbert Boogie RN PRE PROCEDURE ASSESSMENT- Transperineal Bx Procedure/Indication: Transperineal Biopsy Latex Allergy: No Allergies reviewed and updated Yes Pre-Procedure Vital Signs: BP: 156/87 Pulse: 112 Heart Valve replacement: No Joint replacement: no Do you currently have an infection: No Anticoagulant: Yes : Aspirin - Date stopped friday Back Office UA obtained: yes Eaten prior to procedure: Yes PROCEDURE PREP- Transperineal BX Patient ID with two(2)identifiers verified by: Delbert Boogie RN Pre-Procedure Antibiotics: None taken at home nor prior to procedure Anesthetic given: Administered by MD - see Procedure Physician Note. UNIVERSAL PROTOCOL / SAFETY CHECKLIST Procedure to be performed: Transperineal Biopsy Sign in Communication: Completed Time Out: Team Confirms the Correct Patient, Correct Procedure, Correct Site and Site Marking, Correct Position (if applicable) Sign Out Discussion: Completed Delbert Boogie RN POST PROCEDURE NURSE ASSESSMENT Present along with physician during procedure exam. Delbert Boogie RN Instruction sheet given and reviewed and patient verbalizes understanding: yes Post-Procedure Vital Signs: BP: 152/85 Pulse: 100 Current pain intensity is 0 on a 0-10 pain scale. Post-Procedure Medications: none Delbert Boogie RN PATIENT EDUCATION THE FOLLOWING WAS EVALUATED Motivation To Learn: Interested Family/Significant Other Support: None - Unavailable/disinterested Cognitive Ability: Alert/Oriented Patient Learns Best By: Individual instruction Written instruction - handouts Verbal instruction The Following Influencing Factors Were Barriers To This Education Session: None The Following Physical Limitations Were Barriers To This Education Session: None Instruction Provided To:Patient Directory Operator Present: not applicable Discipline: Nursing Learning Topic: Survival Skills: Symptom Management Patient Evaluation: Verbalizes understanding: Yes Supplemental Material Given: Written Material Instructed By Delbert Boogie RN In Department Urology . documented in this encounter [facility] 09-16-2022 Note HNO ID: [id number] Author: Kristina Whitaker APRN.GUIDE CHANGER Service: ? Author Type: Nurse Practitioner Type: Progress Notes Filed: 09/16/2022 2:48 PM Note Text: [facility] ESTABLISHED PATIENT OFFICE VISIT REASON FOR VISIT: Follow up HPI 67 year old male presenting for follow-up of elevated PSA. PSA 09/03/22 5.77 02/07/22 3.59 01/16/22 5.51 09/10/21 4.60 11/03/19 3.46 PATHOLOGY: N/A LABS: Creatinine Date Value Ref Range Status 09/03/2022 1.38 (H) 0.73 - 1.22 mg/dL Final 12/05/2018 1.22 Final Comment: NOTE: Historical EDIT hand entered Lab Results Not intended for clinical decisions, for historical reference only 03/02/2018 1.3 Final Comment: NOTE: Historical EDIT hand entered Lab Results Not intended for clinical decisions, for historical reference only 12/08/2017 1.14 Final PSA (ng/mL) Date Value 09/03/2022 5.77 (H) 01/16/2022 5.51 (H) 01/23/2009 1.11 URINALYSIS: pH, Arterial Date Value Ref Range Status 04/24/2009 7.39 7.35 - 7.45 Final Specific Witt, Ur Date Value Ref Range Status 07/01/2022 1.016 1.005 - 1.030 Final Glucose, Urine Date Value Ref Range Status 07/01/2022 Negative Negative Final Bilirubin, Urine Date Value Ref Range Status 07/01/2022 Negative Negative Final Ketones, Urine Date Value Ref Range Status 07/01/2022 Negative Negative Final Hemoglobin/Blood,Ur Date Value Ref Range Status 07/01/2022 Negative Negative Final Protein, Urine Date Value Ref Range Status 07/01/2022 Negative Negative Final Urobilinogen, Urine Date Value Ref Range Status 05/27/2011 normal Normal (<1.1) EU Nitrites Date Value Ref Range Status 07/01/2022 Negative Negative Final Leukocytes Date Value Ref Range Status 05/27/2011 neg Neg IMAGING: N/A ALLERGIES: ALLERGIES No Known Allergies MEDICATIONS: Current Outpatient Medications Medication Sig mycophenolate mofetil (CELLCEPT) 250 mg capsule Take 2 capsules by mouth twice daily. Diagnosis Code: Z94.0 Kidney Transplant predniSONE (DELTASONE) 5 mg tablet Take 1 tablet by mouth once daily. sulfamethoxazole-trimethoprim (BACTRIM,SEPTRA) 400-80 mg per tablet Take 1 tablet by mouth once daily. tacrolimus IR (PROGRAF) 1 mg capsule Take (2) capsules by mouth every morning and (1) capsule every evening CALCIUM CARBONATE/VITAMIN D3 (CALCIUM + D ORAL) Take one(1) tablet two(2) times daily. acetaminophen(TYLENOL EXTRA STRENGTH 500 MG TAB) Take two(2) tablets every six(6) hours as needed for pain. ASPIRIN 81 MG CHEWABLE TAB 1 Tab ORAL DAILY No current facility-administered medications for this visit. HISTORIES PAST MEDICAL HISTORY Diagnosis Date Coronary atherosclerosis of unspecified type of vessel, [place] or graft Mild 3-vessel Coronary artery disease Hypertension Polycystic kidney, unspecified type 1993 S/p cadaver renal transplant Umbilical hernia PAST SURGICAL HISTORY Procedure Laterality Date LAPAROSCOPY REPAIR INCISIONAL HERNIA REDUCIBLE 2001 umbilical PAST SURGICAL HISTORY OF 07/27/07 Colon Polypectomy- Tubular Adenoma PAST SURGICAL HISTORY OF 10/17 Placement of Left UE AVF x 2 TONSILLECTOMY PRIMARY/SECONDARY Tonsillectomy Social History Tobacco Use Smoking status: Never Smokeless tobacco: Never Substance Use Topics Alcohol use: No Comment: no alcohol > 2 yrs, no previous hx of abuse Drug use: No REVIEW OF SYSTEMS General: No weight loss, malaise or fevers. Genitourinary: No history of dysuria, frequency or incontinence The remainder of the ROS was reviewed and negative. PHYSICAL EXAMINATION There were no vitals taken for this visit. General: Well appearing, alert, in no acute distress, and well-hydrated, well nourished Abdominal: Soft, non-tender Genitourinary: MALE EXAM: Exam NOT Indicated ASSESSMENT: 66 year old male with history of elevated PSA, PSA increased to 5.7 from 3.59. PLAN: Will get IsoPSA and if elevated will get MRI prostate and TP biopsy with Dr weight If normal will follow up in 6 months with PSA IsoPSA Order This information was disclosed to the patient: Your doctor has offered you the IsoPSA blood test, which is intended to improve accuracy over PSA alone in determining whether clinically significant prostate cancer may be present and whether a prostate biopsy is indicated. The company offering this test, [employer] was co-founded by the [facility]. The [facility] has a minority ownership position in the company, so the [facility] indirectly benefits financially from the sale of this test. If you have any questions about this, please ask your doctor or call the [place] Management and Conflict of Interest Office at [phone]. The precise cost of IsoPSA to an individual patient depends on his specific insurance plan, co-pay provisions, and deductibles, but the maximum roe-ry-nauikc expense (more content not included)... [facility] 09-16-2022 Note Patient Outreach (UR OLMN) ------ LINK ROSEN ([id number]) 1955 M Date Time Provider Department 09/16/22 KRISTINA WHITAKER During your visit today, we recorded the following information about you: Allergies As of Date: 09/16/2022 (No Known Allergies) Date Reviewed: 09/16/2022 Reviewed by: Kristina Whitaker APRN.GUIDE CHANGER - Fully Assessed Visit Diagnosis:Screening for genitourinary condition [Z13.89] Order(s):URINALYSIS, REFLEX MICROSCOPIC [ODO5495] Order #: [id number]. #:[id number] Prescriptions as of 09/19/2022 - gabapentin (NEURONTIN) 300 mg capsule Take 300 mg by mouth twice daily. - hydrOXYzine HCl (ATARAX) 25 mg tablet Take 25 mg by mouth every 8 hours as needed. - mycophenolate mofetil (CELLCEPT) 250 mg capsule Take 2 capsules by mouth twice daily. Diagnosis Code: Z94.0 Kidney Transplant - predniSONE (DELTASONE) 5 mg tablet Take 1 tablet by mouth once daily. - sulfamethoxazole-trimethoprim (BACTRIM,SEPTRA) 400-80 mg per tablet Take 1 tablet by mouth once daily. - tacrolimus IR (PROGRAF) 1 mg capsule Take (2) capsules by mouth every morning and (1) capsule every evening - CALCIUM CARBONATE/VITAMIN D3 (CALCIUM + D ORAL) Take one(1) tablet two(2) times daily. - ASPIRIN 81 MG CHEWABLE TAB 1 Tab ORAL DAILY Meds Comments as of 02/22/2010: Patient states he doesn't always take Pepcid. 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 PSA 09/03/22 5.77 02/07/22 3.59 01/16/22 5.51 09/10/21 4.60 11/03/19 3.46 PATHOLOGY: N/A LABS: Creatinine Date Value Ref Range Status 09/03/2022 1.38 (H) 0.73 - 1.22 mg/dL Final 12/05/2018 1.22 Final Comment: NOTE: Historical EDIT hand entered Lab Results Not intended for clinical decisions, for historical reference only 03/02/2018 1.3 Final Comment: NOTE: Historical EDIT hand entered Lab Results Not intended for clinical decisions, for historical reference only 12/08/2017 1.14 Final PSA (ng/mL) Date Value 09/03/2022 5.77 (H) 01/16/2022 5.51 (H) 01/23/2009 1.11 URINALYSIS: pH, Arterial Date Value Ref Range Status 04/24/2009 7.39 7.35 - 7.45 Final Specific Witt, Ur Date Value Ref Range Status 07/01/2022 1.016 1.005 - 1.030 Final Glucose, Urine Date Value Ref Range Status 07/01/2022 Negative Negative Final Bilirubin, Urine Date Value Ref Range Status 07/01/2022 Negative Negative Final Ketones, Urine Date Value Ref Range Status 07/01/2022 Negative Negative Final Hemoglobin/Blood,Ur Date Value Ref Range Status 07/01/2022 Negative Negative Final Protein, Urine Date Value Ref Range Status 07/01/2022 Negative Negative Final Urobilinogen, Urine Date Value Ref Range Status 05/27/2011 normal Normal (<1.1) EU Nitrites Date Value Ref Range Status 07/01/2022 Negative Negative Final Leukocytes Date Value Ref Range Status 05/27/2011 neg Neg IMAGING: N/A ALLERGIES: ALLERGIES No Known Allergies MEDICATIONS: Current Outpatient Medications Medication Sig mycophenolate mofetil (CELLCEPT) 250 mg capsule Take 2 capsules by mouth twice daily. Diagnosis Code: Z94.0 Kidney Transplant predniSONE (DELTASONE) 5 mg tablet Take 1 tablet by mouth once daily. sulfamethoxazole-trimethoprim (BACTRIM,SEPTRA) 400-80 mg per tablet Take 1 tablet by mouth once daily. tacrolimus IR (PROGRAF) 1 mg capsule Take (2) capsules by mouth every morning and (1) capsule every evening CALCIUM CARBONATE/VITAMIN D3 (CALCIUM + D ORAL) Take one(1) tablet two(2) times daily. acetaminophen(TYLENOL EXTRA STRENGTH 500 MG TAB) Take two(2) tablets every six(6) hours as needed for pain. ASPIRIN 81 MG CHEWABLE TAB 1 Tab ORAL DAILY No current facility-administered medications for this visit. HISTORIES PAST MEDICAL HISTORY Diagnosis Date Coronary atherosclerosis of unspecified type of vessel, [place] or graft Mild 3-vessel Coronary artery disease Hypertension Polycystic kidney, unspecified type 1993 S/p cadaver renal transplant Umbilical hernia PAST SURGICAL HISTORY Procedure Laterality Date LAPAROSCOPY REPAIR INCISIONAL HERNIA REDUCIBLE 2001 umbilical PAST SURGICAL HISTORY OF 07/27/07 Colon Polypectomy- Tubular Adenoma PAST SURGICAL HISTORY OF 10/17 Placement of Left UE AVF x 2 TONSILLECTOMY PRIMARY/SECONDARY <AGE 14 Tonsillectomy Social History Tobacco Use Smoking status: Never Smokeless tobacco: Never Substance Use Topics Alcohol use: No Comment: no alcohol > 2 yrs, no previous hx of abuse Drug use: No REVIEW OF SYSTEMS General: No weight loss, malaise or fevers. Genitourinary: No history of dysuria, frequency or incontinence The remainder of the ROS was reviewed and negative. PHYSICAL EXAMINATION There were no vitals taken for this visit. General: Well appearing, alert, in no acute distress, and well-hydrated, well nourished Abdominal: Soft, non-tender Genitourinary: MALE EXAM: Exam NOT Indicated ASSESSMENT: 66 year old male with history of elevated PSA, PSA increased to 5.7 from 3.59. PLAN: Will get IsoPSA and if elevated will get MRI prostate and TP biopsy with weight If normal will follow up in 6 months with PSA IsoPSA Order This information was disclosed to the patient: Your doctor has offered you the IsoPSA blood test, which is intended to improve accuracy over PSA alone in determining whether clinically significant prostate cancer may be present and whether a prostate biopsy is indicated. The company offering this test, [employer] was co-founded by the [facility]. The [facility] has a minority ownership position in the company, so the [facility] indirectly benefits financially from the sale of this test. If you have any questions about this, please ask your doctor or call the [employer] Management and Conflict of Interest Office at [phone]. The precise cost of IsoPSA to an individual patient depends on his specific insurance plan, co-pay provisions, and deductibles, but the maximum jql-tq-eyuhwj expense is $450. For eligible patients, the company's financial assistance program can reduce patient exposure to as little as $100. Please contact the patient sales financial analyst at ext [phone] to get an estimate of your [id number] cost. IsoPSA has not yet been cleared or approved by the FDA. IsoPSA is a Lab Developed Test performed in a laboratory by [employer] that is regulated under the Clinical Laboratory Improvement Amendments of 1988 (or CLIA) and is overseen by the Centers for Medicare and Medicaid Services ([facility]) within the U.S. Department of Health and Human Services. I spent a total of 15 minutes on the date of the service which included preparing to see the patient, [id number] patient care, obtaining and/or reviewing separately obtained history, performing a medically appropriate examination, and ordering medications, tests, or procedures. Kristina Whitaker APRN.CNP documented in this encounter [facility] 03-18-2022 Miscellaneous Notes ROLO: 07/05/21 Patient's request for medication is as follows: Pending Prescriptions Disp Refills PREDNISONE 5 MG TABLET 90 tablet 3 Sig: Take 1 tablet by mouth once daily. JAQUI: No SULFAMETHOXAZOLE 400 MG-TRIMETHOPRIM 80 MG TABLET 90 tablet 3 Sig: Take 1 tablet by mouth once daily. JAQUI: No Please approve the above prescription(s) to electronically send to pharmacy. Emperatriz Nice documented in this encounter [facility] 02-26-2022 History of Present illness Narrative VIRTUAL VISIT FOLLOW UP PATIENT: Link Rosen [id number] 02/26/2022 This is a virtual visit using [employer] video visit. It required patient-provider interaction for the medical decision making as documented below. Chief Complaint: Elevated PSA follow up History of Present Illness: Link Rosen is a very pleasant 66 year old male who presents with past medical history significant for adult polycystic kidney disease and kidney transplant in 2008, who presents with elevated PSA. PSA 02/07/22 3.59 01/16/22 5.51 09/10/21 4.60 11/03/19 3.46 Seen 01/31/22 with plan to obtain IsoPSA Interval Hx: IsoPSA was not completed because PSA value was too low. Review of Systems: As noted in HPI Physical Exam (via video enabled technology) GENERAL: alert and appropriate, in no distress, well-hydrated, well nourished and happy, smiling, interactive Labs and Pathology: Lab Results Component Value Date ISOPSA 0 02/07/2022 TPSA 3.590 02/07/2022 Imaging: CT 01/11/22 - normal * No acute pathologic process. * Simple renal cyst in the right lower quadrant transplant kidney. No renal calculi. * Splenomegaly. * Interval enlargement of simple hepatic cysts. Assessment and Plan: This is a 66 year old male with history of elevated PSA which was 5.51 in January but repeat was 3.59 in February. Plan: - PSA in 6 months and follow up with Kristina Whitaker - Does not exclude chance of cancer so patient was recommended to keep watch and continue getting PSA every [address] Jesse Burks by Saeed Torres, infertility medical assistant, on February 26, 2022 This visit was conducted as a video visit and lasted 10 minutes. I agree with the Chief Complaint, ROS, and Past Histories independently gathered by the clinical fire support specialist including scribe and or medical student and or DESIREE and or resident or fellow and the remaining scribed note accurately describes my personal service to the patient. Jesse Burks MD, MS [facility] [place] [facility] documented in this encounter [facility] 01-31-2022 History of Present illness Narrative ##PROSTATE CANCER INITIAL ENCOUNTER## Chief Complaint: Elevated PSA Consult or Referral: Consultation requested by Self for an opinion regarding elevated PSA. My final recommendations will be communicated back to the requesting physician by way of shared Medical record or letter to requesting physician via US mail. History of Present Illness: Link Rosen is a very pleasant 66 year old male, past medical history significant for adult polycystic kidney disease and kidney transplant in 2008, who presents with elevated PSA. PSA 01/16/22 - 5.51 09/10/21 - 4.60 11/03/19 - 3.46 UA - negative He denies significant voiding symptoms. Past Medical History: PAST MEDICAL HISTORY Diagnosis Date Coronary atherosclerosis of unspecified type of vessel, [place] or graft Mild 3-vessel Coronary artery disease Hypertension Polycystic kidney, unspecified type 1993 S/p cadaver renal transplant Umbilical hernia Past Surgical History: PAST SURGICAL HISTORY Procedure Laterality Date LAP INC HERNIA REPAIR 2001 umbilical PAST SURGICAL HISTORY OF 07/27/07 Colon Polypectomy- Tubular Adenoma PAST SURGICAL HISTORY OF 2006, 10/17 Placement of Left UE AVF x 2 REMOVAL OF TONSILS,<12 Y/O Tonsillectomy Problem List: ACTIVE PROBLEM LIST S/P Cadaver Renal Transplant Umbilical Hernia Kidney Replaced By Transplant - 05/08/2009 Need for Prophylactic Immunotherapy - 05/08/2009 Hypertensive Heart and Kidney Disease With End-Stage Renal Disease (Hcc) - 05/08/2009 Polycystic Kidney Disease - 05/08/2009 Ureteral Fistula - 05/08/2009 Medications Current Outpatient Medications on File Prior to Visit Medication Sig tacrolimus IR (PROGRAF) 1 mg capsule Take 2 capsules by mouth twice daily (Take 12 hours apart) Diagnosis Code: Z94.0 mycophenolate mofetil (CELLCEPT) 250 mg capsule Take 2 capsules by mouth twice daily. Diagnosis Code: Z94.0 Kidney Transplant predniSONE (DELTASONE) 5 mg tablet Take 1 tablet by mouth once daily. sulfamethoxazole-trimethoprim (BACTRIM,SEPTRA) 400-80 mg per tablet Take 1 tablet by mouth once daily. magnesium oxide (MAG-OX) 400 mg tablet Take 1 tablet by mouth twice daily. CALCIUM CARBONATE/VITAMIN D3 (CALCIUM + D ORAL) Take one(1) tablet two(2) times daily. acetaminophen(TYLENOL EXTRA STRENGTH 500 MG TAB) Take two(2) tablets every six(6) hours as needed for pain. ASPIRIN 81 MG CHEWABLE TAB 1 Tab ORAL DAILY No current facility-administered medications on file prior to visit. Family History: FAMILY HISTORY Problem Relation Age of Onset other (Polycystic Kidney [Other]) Mother other (Polycystic Kidney [Other]) Brother other (CVA [Other]) Father Emphysema Father Social History: Social History Tobacco Use Smoking status: Never Smoker Smokeless tobacco: Never Used Substance Use Topics Alcohol use: No Comment: no alcohol > 2 yrs, no previous hx of abuse Drug use: No Allergies: Patient has no known allergies. Review of Systems: Review of Systems: GENERAL: No weight loss, malaise or fevers. HEENT: Not reviewed NECK: Not reviewed RESPIRATORY: Negative for cough, hemoptysis, wheezing, COPD, dyspnea or shortness of breath CARDIOVASCULAR: Negative for chest pain, leg swelling, hypertension, CHF or palpitations GI: No nausea, vomiting, or diarrhea : No history of dysuria, frequency or incontinence Imaging: CT 01/11/22 - normal IMPRESSION: * No acute pathologic process. * Simple renal cyst in the right lower quadrant transplant kidney. No renal calculi. * Splenomegaly. * Interval enlargement of simple hepatic cysts. Physical Exam: None, Virtual Visit. Labs and Pathology: PSA Date Value Ref Range Status 01/16/2022 5.51 (H) <2.60 ng/mL Final Comment: Total PSA test methodology used is the Electrochemiluminescence Immunoassay by [employer]. Total PSA values by differing methodologies cannot be interchanged. For an individual patient, the significance of a PSA level should be interpreted in a broad clinical context, including age, race, family history, digital rectal exam, prostate size, results of prior testing (prostate biopsy, free PSA, PCA3), and use of 5-alpha reductase inhibitors. Considering the high incidence of asymptomatic cancer in the general population that may not pose an ultimate risk to a patient, the decision to recommend urological evaluation or prostate biopsy should be individualized after consideration of all these factors. REFERENCE: Saw Alexander M.D., M.P.H., Adin Richardson M.D., Ph.D., Luca Estrella M.D., Ana Regalado, M.P.H., Carlie De Los Santos, Sc.D. Effect of Verification Bias on Screening for Prostate Cancer by Measurement of Prostatic Specific Antigen. N Engl J Med 2003,349:335-42. 01/23/2009 1.11 0.00 - 4.00 ng/mL Final Comment: (NOTE)In general, the risk that individual patients have prostate cancer detected if biopsy is performed at various levels of PSA is shown in the table below. PSA < or = 1.0 ng/mL 8.8% Risk of prostate cancer on biopsy PSA 1.1 - 2.0 ng/mL 17.0% Risk of prostate cancer on biopsy PSA 2.1 - 3.0 ng/mL 23.9% Risk of prostate cancer on biopsy PSA 3.1 - 4.0 ng/mL 26.9% Risk of prostate cancer on biopsy PSA 4.1 -10.0 ng/mL 47.0% Risk of prostate cancer on biopsy PSA >10.0 ng/mL 58.2% Risk of prostate cancer on biopsy Comment: Published data from the Prostate Cancer Prevention Trial demonstrated that there is no PSA level below which the risk of having prostate cancer is zero. For an individual patient, the significance of a PSA level should be interpreted in a broad clinical context, including age, race, family history, digital rectal exam, prostate size, results of prior prostate biopsy, and use of 5 alpha reductase inhibitors. Considering the high incidence of asymptomatic cancer in the general population that may not pose an ultimate risk to the patient, the decision to recommend urological evaluation or prostate biopsy should be individualized after considering all of these factors. References: Miguel IM et al. N Engl J Med(2004)350:2239-46 and Polina SIERRA et al. J Urol(2003)169:125-29. Outside and Past Medical records: Reviewed outside records for 15 minutes. Assessment and Plan: Assessment: This is a 66 year old male with history of elevated PSA. PSA 01/16/22 - 5.51 Plan: Plan for IsoPSA, plan for Virtual Visit follow-up if elevated to discuss possible biopsy. I agree with the Chief Complaint, ROS, and Past Histories independently gathered by the clinical fire support specialist including scribe and or medical student and or DESIREE and or resident or fellow and the remaining scribed note accurately describes my personal service to the patient. Jesse Burks MD, MS [facility] [place] [facility] ADDENDUM PSA was only 3.6 on follow up so ISOPSA was not done. Follow up in 6 moths with PSA Prostate Cancer Educational Materials Prostate Cancer [facility] http://my.[facility].org/disorde rs/prostate_cancer/hic_prostate_cance r_basics.aspx Prostate Cancer Treatment Guide (download) [facility] Tyrese http://www.[facility].org/lp/pro state-cancer/index.html National Cancer [place] Treatment Choices for Early-Stage Prostate Cancer https://www.cancer.gov/types/prostate /patient/allysoxw-fqsycoubp-hod National Cancer [place] Coping with Cancer https://www.cancer.gov/about-cancer/c oping documented in this encounter [facility] 01-30-2022 Note PROCEDURE: XR ANKLE LT MIN 3 V HISTORY: Pain of left ankle joint COMPARISON: XR ankle left 07/26/2021 FINDINGS: BONES:Mechanical fusion of the ankle joint and hindfoot via an intramedullary tiana and locking screws; no appreciable hardware fracture or loosening. Heterotopic bone formation and marked degenerative changes. SOFT TISSUES:Moderate soft tissue swelling. EFFUSION:None visible. OTHER: Negative. IMPRESSION: 1. Stable surgical changes without evidence of hardware failure or change in alignment. 2. Stable degenerative and post traumatic changes. Electronically authenticated by: JAN ROSARIO Date: 2022-01-30 11:51 [facility] 07-27-2021 Note PROCEDURE: XR ANKLE LT MIN 3 V COMPARISON: 03/29/2021 HISTORY: Pain of left ankle joint FINDINGS: BONES:Stable ankle fusion utilizing an retrograde intramedullary tiana and proximally and distally. Severe degenerative changes throughout the visualized hindfoot and midfoot with joint space narrowing heterotopic ossification and enthesopathic spurring. No mechanical failure SOFT TISSUES:Moderate diffuse soft tissue swelling EFFUSION:None visible. OTHER: Negative. 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 Electronically authenticated by: MUSTAPHA BAUGH Date: 2021-07-27 07:29 [facility] Evaluation note Diagnosis Elevated prostate specific antigen (PSA)- Primary Elevated PSA Elevated prostate specific antigen (PSA) [facility] Elevated PSA- Primary Elevated prostate specific antigen (PSA) [facility] Kidney replaced by transplant Need for prophylactic immunotherapy Need for pneumocystis prophylaxis Need for other prophylactic chemotherapy Hypomagnesemia Disorders of magnesium metabolism [facility] Kidney replaced by transplant Need for pneumocystis prophylaxis Need for other prophylactic chemotherapy [facility] Diagnosis Screening for genitourinary condition Screening for other and unspecified [facility]itourinary condition [facility] Elevated PSA- Primary Elevated prostate specific antigen (PSA) [facility] Diagnosis Screening for genitourinary condition Screening for other and unspecified genitourinary condition documented in this encounter [facility] note* Diagnosis Encounter for observation for other suspected diseases and conditions ruled out- Primary documented in this encounter [facility] note* Diagnosis Kidney replaced by transplant documented in this encounter [facility] note* Diagnosis Elevated PSA- Primary Elevated prostate specific antigen (PSA) documented in this encounter [facility] note* Diagnosis Elevated PSA- Primary Elevated prostate specific antigen (PSA) documented in this encounter [facility] note* Diagnosis Kidney replaced by transplant Need for prophylactic immunotherapy Need for pneumocystis prophylaxis Need for other prophylactic chemotherapy documented in this encounter [facility] note* Diagnosis Kidney replaced by transplant- Primary Hypophosphatemia Disorders of phosphorus metabolism Hypomagnesemia Disorders of magnesium metabolism Irregular heartbeat Cardiac dysrhythmia, unspecified Aftercare following organ transplant documented in this encounter [facility] note* Diagnosis Irregular heartbeat- Primary Cardiac dysrhythmia, unspecified Polycystic kidney disease Polycystic kidney, unspecified type documented in this encounter [facility] note* Diagnosis Atrial fibrillation by electrocardiogram (HCC)- Primary Atrial fibrillation documented in this encounter [facility] for referral (narrative)* Outpatient Procedure (Routine) - Pending Review Specialty Diagnoses / Procedures Referred By La martin Referred To Contact [facility] Diagnoses Encounter for observation for other suspected diseases and conditions ruled out Procedures PROSTATE BIOPSY GUKI PROSTATE NEEDLE BIOPSY ANY APPROACH US, TRANSRECTAL URNLS DIP STICK/TABLET RGNT AUTO W/O MICROSCOPY US GUIDANCE NEEDLE PLACEMENT IMG S&I Jesse Burks MD [address] [place] [address] [address] Referral ID Status Reason Start Date Expiration Date Visits Requested Visits Authorized [id number] Pending Review Auto-Generat ed Referral 09/19/2022 09/19/2023 1 1 * MRI/CT (Routine) - Pending Review Specialty Diagnoses / Procedures Referred By La martin Referred To Contact [facility] IMAGING Diagnoses Encounter for observation for other suspected diseases and conditions ruled out Procedures MRI PROSTATE WO/W IVCON MRI PELVIS W/O & W/CONTRAST MATERIAL Weight, Christopher, MD [address] [place] [address] Mr Imaging Referral ID Status Reason Start Date Expiration Date Visits Requested Visits Authorized [id number] Pending Review Auto-Generat ed Referral 09/19/2022 10/19/2023 1 1 [facility] Summary Purpose Family History No Family History Records FoundNo Family History Records FoundNo Family History Records Found Advance Directives No Advanced Directives Records FoundDocuments on File Type Date Recorded 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 Advance Directive(s) Reason for Referral Specialty Diagnoses / Procedures Referred By La t Referred To Contact Cardiology Diagnoses Atrial fibrillation by electrocardiogram (HCC) Procedures CONSULT TO CARDIOLOGY OFFICE/OUTPATIENT [facility] MDM 60-74 MINUTES Usman Lowry, FINISHING WIRE SAWYER.GUIDE CHANGER [address] [place] [address] Referral ID Status Reason Start Date Expiration Date Visits Requested Visits Authorized [id number] Authorized PCP Requested Referral 07/11/2023 07/10/2024 1 1 Additional Source Comments (unrecognized sect ion and content) No Status Records FoundNo Status Records FoundNo Status Records Found INFORMATION SOURCE (unrecogn ized section and content) DATE CREATED AUTHOR 09/26/2021 [facility] DATE CREATED AUTHOR AUTHOR'S ORGANIZ ATION 04/22/2022 [facility] DATE CREATED AUTHOR AUTHOR'S ORGANIZ ATION 09/04/2023 [facility] Source Comments (unrecognize d section and content) In the event this informatio n is protected by the Federal Confidentiality of Alcohol and Drug Abuse Patient Records regulations: The Federal rules restrict any use of the information to criminally investigate or prosecute any alcohol or drug abuse patient.[facility] the event this information is protected by the Federal Confidentiality of Alcohol and Drug Abuse Patient Records regulations: The Federal rules restrict any use of the information to criminally investigate or prosecute any alcohol or drug abuse patient.[facility] the event this information is protected by the Federal Confidentiality of Alcohol and Drug Abuse Patient Records regulations: The Federal rules restrict any use of the information to criminally investigate or prosecute any alcohol or drug abuse patient.[facility] the event this information is protected by the Federal Confidentiality of Alcohol and Drug Abuse Patient Records regulations: The Federal rules restrict any use of the information to criminally investigate or prosecute any alcohol or drug abuse patient.[facility] the event this information is protected by the Federal Confidentiality of Alcohol and Drug Abuse Patient Records regulations: The Federal rules restrict any use of the information to criminally investigate or prosecute any alcohol or drug abuse patient.[facility] the event this information is protected by the Federal Confidentiality of Alcohol and Drug Abuse Patient Records regulations: The Federal rules restrict any use of the information to criminally investigate or prosecute any alcohol or drug abuse patient.[facility] the event this information is protected by the Federal Confidentiality of Alcohol and Drug Abuse Patient Records regulations: The Federal rules restrict any use of the information to criminally investigate or prosecute any alcohol or drug abuse patient.[facility] the event this information is protected by the Federal Confidentiality of Alcohol and Drug Abuse Patient Records regulations: The Federal rules restrict any use of the information to criminally investigate or prosecute any alcohol or drug abuse patient.[facility] the event this information is protected by the Federal Confidentiality of Alcohol and Drug Abuse Patient Records regulations: The Federal rules restrict any use of the information to criminally investigate or prosecute any alcohol or drug abuse patient.[facility] the event this information is protected by the Federal Confidentiality of Alcohol and Drug Abuse Patient Records regulations: The Federal rules restrict any use of the information to criminally investigate or prosecute any alcohol or drug abuse patient.[facility] the event this information is protected by the Federal Confidentiality of Alcohol and Drug Abuse Patient Records regulations: The Federal rules restrict any use of the information to criminally investigate or prosecute any alcohol or drug abuse patient.[facility] the event this information is protected by the Federal Confidentiality of Alcohol and Drug Abuse Patient Records regulations: The Federal rules restrict any use of the information to criminally investigate or prosecute any alcohol or drug abuse patient.[facility] the event this information is protected by the Federal Confidentiality of Alcohol and Drug Abuse Patient Records regulations: The Federal rules restrict any use of the information to criminally investigate or prosecute any alcohol or drug abuse patient.[facility] the event this information is protected by the Federal Confidentiality of Alcohol and Drug Abuse Patient Records regulations: The Federal rules restrict any use of the information to criminally investigate or prosecute any alcohol or drug abuse patient.[facility] the event this information is protected by the Federal Confidentiality of Alcohol and Drug Abuse Patient Records regulations: The Federal rules restrict any use of the information to criminally investigate or prosecute any alcohol or drug abuse patient.[facility] the event this information is protected by the Federal Confidentiality of Alcohol and Drug Abuse Patient Records regulations: The Federal rules restrict any use of the information to criminally investigate or prosecute any alcohol or drug abuse patient.[facility] the event this information is protected by the Federal Confidentiality of Alcohol and Drug Abuse Patient Records regulations: The Federal rules restrict any use of the information to criminally investigate or prosecute any alcohol or drug abuse patient.[facility] the event this information is protected by the Federal Confidentiality of Alcohol and Drug Abuse Patient Records regulations: The Federal rules restrict any use of the information to criminally investigate or prosecute any alcohol or drug abuse patient.[facility] the event this information is protected by the Federal Confidentiality of Alcohol and Drug Abuse Patient Records regulations: The Federal rules restrict any use of the information to criminally investigate or prosecute any alcohol or drug abuse patient.[facility] Care Teams (unrecognized sec tion and content) Sewing Machine Adjuster Relationship Specialty Start Date End Date Kathleen Sams PA-C [address] [place] [address] PCP - General Internal Medicine 07/06/18 Usman Lowry, CONG.GUIDE CHANGER [address] [place] [address] Primary Staff Physician Nephrology 10/04/21 Sewing Machine Adjuster Relationship Specialty Start Date End Date Kathleen Sams PA-C [address] [place] [address] PCP - General Internal Medicine 07/06/18 Usman Lowry, FINISHING WIRE SAWYER.GUIDE CHANGER [address] [place] [address] Primary Staff Physician Nephrology 10/04/21 Sewing Machine Adjuster Relationship Specialty Start Date End Date Kathleen Sams PA-C [address] [place] [address] PCP - General Internal Medicine 07/06/18 Usmna Lowry, FINISHING WIRE SAWYER.GUIDE CHANGER [address] [place] [address] Primary Staff Physician Nephrology 10/04/21 Sewing Machine Adjuster Relationship Specialty Start Date End Date Kathleen Sams PA-C [address] [place] [address] PCP - General Internal Medicine 07/06/18 Usman Lowry, FINISHING WIRE SAWYER.GUIDE CHANGER [address] [place] [address] Primary Staff Physician Nephrology 10/04/21 Sewing Machine Adjuster Relationship Specialty Start Date End Date Kathleen Sams PA-C [address] [place] [address] PCP - General Internal Medicine 07/06/18 Usman Lowry, FINISHING WIRE SAWYER.GUIDE CHANGER [address] [place] [address] Primary Staff Physician Nephrology 10/04/21 Sewing Machine Adjuster Relationship Specialty Start Date End Date Kathleen Sams PA-C [address] [place] [address] PCP - General Internal Medicine 07/06/18 Usman Lowry, FINISHING WIRE SAWYER.GUIDE CHANGER [address] [place] [address] Primary Staff Physician Nephrology 10/04/21 Sewing Machine Adjuster Relationship Specialty Start Date End Date Kathleen Sams PA-C [address] [place] [address] PCP - General Internal Medicine 07/06/18 Usman Lowry, FINISHING WIRE SAWYER.GUIDE CHANGER [address] [place] [address] Primary Staff Physician Nephrology 10/04/21 Sewing Machine Adjuster Relationship Specialty Start Date End Date Kathleen Sams PA-C [address] [place] [address] PCP - General Internal Medicine 07/06/18 Usman Lowry, FINISHING WIRE SAWYER.GUIDE CHANGER [address] [place] [address] Primary Staff Physician Nephrology 10/04/21 Sewing Machine Adjuster Relationship Specialty Start Date End Date Kathleen Sams PA-C [address] [place] [address] PCP - General Internal Medicine 07/06/18 Usman Lowry, FINISHING [employer]GUIDE CHANGER [address] [place] [address] Primary Staff Physician Nephrology 10/04/21 Sewing Machine Adjuster Relationship Specialty Start Date End Date Kathleen Sams PA-C [address] [place] [address] PCP - General Internal Medicine 07/06/18 Usman Lowry, FINISHING [employer]GU[employer] CH[employer]ER [address] [place] [address] Primary Staff Physician Nephrology 10/04/21 Sewing Machine Adjuster Relationship Specialty Start Date End Date Kathleen Sams PA-C [address] [place] [address] PCP - General Internal Medicine 07/06/18 Usman Lowry, FINISHING [employer]GU[employer] CH[employer]ER [address] [place] [address] Primary Staff Physician Nephrology 10/04/21 Sewing Machine Adjuster Relationship Specialty Start Date End Date Kathleen Sams PA-C [address] [place] [address] PCP - General Internal Medicine 07/06/18 Usman Lowry, FINISHING [employer]GU[employer] CH[employer]ER [address] [place], [place] [id number] Primary Staff Physician Nephrology 10/04/21 Sewing Machine Adjuster Relationship Specialty Start Date End Date Kathleen Sams PA-C [address] [place], [place] [id number] PCP - General Internal Medicine 07/06/18 Usman Lowry, FINISHING [employer]GU[employer] CH[employer]ER [address] [place], [place] [id number] Primary Staff Physician Nephrology 10/04/21 Sewing Machine Adjuster Relationship Specialty Start Date End Date Kathleen Sams PA-C [address] [place], [place] [id number] PCP - General Internal Medicine 07/06/18 Usman Lowry, FINISHING [employer]GUIDE CHANGER [address] [place], [place] [id number] Primary Staff Physician Nephrology 1/27/22 Reason for Visit (unrecogniz ed section and content) Reason Comments Follow Up Reason Onset Date Comments Refill Request 03/16/2022 Reason Comments Prostate Biopsy Reason Comments Follow Up Elevated PSA Reason Comments Refill Request FOR RECORDS PERTAINING TO PATIENTS WHO ARE OR HAVE BEEN ENROLLED IN A CHEMICAL DEPENDENCY/SUBSTANCEABUSE PROGRAM, SOME INFORMATION MAY BE OMITTED. This clinical summary was aggregated from multiple sources. Caution should be exercised in using it in the provision of clinical care. This summary normalizes information from multiple sources, and as a consequence, information in this document may materially change the coding, format and clinical context of patient data. In addition, data may be omitted in some cases. CLINICAL DECISIONS SHOULD BE BASED ON THE PRIMARY CLINICAL RECORDS. [email or web address] provides no warranty or guarantee of the accuracy or completeness of information in this document.
[2023-09-19 11:59] LABS: Amphetamine Screen Urine NEGATIVE (NEGATIVE); Barbiturates Screen Urine NEGATIVE (NEGATIVE); Benzodiazepines Screen Urine NEGATIVE (NEGATIVE); Buprenorphine Screen Urine NEGATIVE (NEGATIVE); Cannabinoid Screen Urine NEGATIVE (NEGATIVE); Cocaine Screen Urine NEGATIVE (NEGATIVE); Methadone Screen Urine NEGATIVE (NEGATIVE); Methamphetamines Screen Urine NEGATIVE (NEGATIVE); Opiate Screen Urine NEGATIVE (NEGATIVE); Oxycodone Screen Urine NEGATIVE (NEGATIVE); Phencyclidine Screen Urine NEGATIVE (NEGATIVE); Tricyclic Antidepressant Urine NEGATIVE (NEGATIVE)
== END 2023-09-19 11:30 | disposition home or self-care (01) ==
LOC: LAB 11:29
PROVIDERS: PCP Physician Assistant; Visit Provider Physician Assistant
DX: M79.2 Neuralgia and neuritis, unspecified (principal); Z79.899 Other long term (current) drug therapy
CPT/HCPCS: 36415; 80307; 80355

== ENCOUNTER 2024-03-11 08:11 | Emergency (ER) | payer MEDICARE, OTHER, SELFPAY ==
[2024-03-11] VITALS (25 sets, daily range): BP systolic 143–144; BP diastolic 76–80; PULSE 81–100; TEMP 36.6; O2SAT 98–99; BMI 37.9
--- OUTSIDE RECORDS SUMMARY | 2024-03-11 08:18 | XMS_ITS | CCD ---
Author Organization [facility] CliniSyil Care Team Providers Care 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 Name Role Phone Kathleen Sams PA-C Primary Care Provider Lard EMERGENCY MEDICINE SPECIALIST.Usman ESTRADA Unavailable LANCE GLASGOW Admitting Unavailable [facility] Unava ilLANCE Nguyen Attending Unavailable LANCE GLASGOW Consulting Unavailable CHRISSY BABIN Admitting Unavailable DR MUSTAPHA BAUGH V Consulting Unavailable [facility] Unava ilable CHRISSY BABIN Attending Unavailable CHRISSY BABIN Consulting Unavailable CHRISSY BABIN Attending Unavailable DR Jan Carnes Consulting Unavailable [facility] Unava ilable CHRISSY BABIN Admitting Unavailable CHRISSY BABIN Consulting Unavailable Kathleen Sams PA-C Primary Care Provider Lard EMERGENCY MEDICINE SPECIALIST.Usman ESTRADA L Unavailable Kathleen Sams PA-C Primary Care Provider Lard EMERGENCY MEDICINE SPECIALIST.Usman ESTRADA L Unavailable Lard EMERGENCY MEDICINE SPECIALIST.Usman ESTRADA L Unavailable Kathleen Sams PA-C Primary Care Provider KATHLEEN SAMS Primary Care Unavailable KATHLEEN SAMS Primary Care Unavailable KATHLEEN SAMS Primary Care Unavailable KATHLEEN SAMS Primary Care Unavailable USMAN LOWRY Referring Unavailable TYLER, SUROVI Attending Unavailable SELF Referring Unavailable KATHLEEN SAMS Primary Care Unavailable TYLER, SUROVI Referring Unavailable KATHLEEN SAMS Primary Care Unavailable SHIMONDUSMAN L Attending Unavailable KATHLEEN SAMS Primary Care Unavailable KATHLEEN SAMS Primary Care Unavailable JOSTINKA, SUROVI Referring Unavailable KATHLEEN SAMS Primary Care Unavailable HAZARIKA, SUROVI Attending Unavailable SAMS, KATHLEEN SANDRA Primary Care Unavailable HAZARIKA, SUROVI Referring Unavailable KATHLEEN SAMS Primary Care Unavailable RYANYASSINEKA, SUROVI Referring Unavailable WEI PABLO Attending Unavaila ble KATHLEEN SAMS Primary Care Unavailable KATHLEEN SAMS Primary Care Unavailable KATHLEEN SAMS Primary Care Unavailable WEIGHT, CHRISTOPHER Referring Unavailable KATHLEEN SAMS Primary Care Unavailable KATHLEEN SAMS Primary Care Unavailable WEI PABLO Attending Unavailable WEI PABLO Admitting Unavailable Medications Current Medications Medication Drug Class(es) Dates Sig (Normalized) Sig (Original) 10 ml aminophylline 25 mg/ml injection (1 source) Start: 11-10-2023 End: 11-17-2023 aminophylline 50-250 mg injection aspirin 81 mg chewable tablet (20 sources) Platelet Aggregation Inhibitor, Nonsteroidal Anti-inflammatory Drug Start: 05-03-2009 take 1 tablet by mouth once daily ASPIRIN 81 MG CHEWABLE TAB 1 Tab ORAL DAILY 0 05/03/2009 Active Comment on above: 1 Tab ORAL DAILY Calcium Carbonate / vitamin D3 (20 sources) take 1 tablet by mouth once daily CALCIUM CARBONATE/VITAMIN D3 (CALCIUM + D ORAL) Take one(1) tablet two(2) times daily. 0 Active Comment on above: Take one(1) tablet t wo(2) times daily. gabapentin 300 mg oral capsule (20 sources) Anti-epileptic Agent Start: 08-22-2022 take 1 capsule by mouth twice daily gabapentin (NEURONTIN) 300 mg capsule Take 300 mg by mouth twice daily. 0 08/22/2022 Active Comment on above: Take 300 mg by mouth twice daily. iv contrast (will be provided with radiology [...] in the MR contrast administration guidelines link. metoprolol tartrate 25 mg oral tablet (10 sources) beta-Adrenergic Uriel Start: 11-10-2023 take 1.5 tablets by mouth twice daily metoprolol tartrate, short acting, (LOPRESSOR) 25 mg tablet Indications: Persistent atrial fibrillation (HCC) , Abnormal EKG Take 1.5 tablets by mouth two times a day. 270 tablet 3 11/10/2023 Active Start: 11-10-2023 End: 11-17-2023 metoprolol 2.5-5 mg injectio n (LOPRESSOR) Start: 09-30-2023 End: 11-10-2023 take 1 tablet by mouth twice daily metoprolol tartrate, short acting, (LOPRESSOR) 25 mg tablet Take 1 tablet by mouth two times a day. 180 tablet 3 09/30/2023 11/10/2023 Discontinued Comment on above: Take 1.5 tablets by mouth two times a day. Take 1 tablet by jennifer th two times a day. mycophenolate mofetil 250 mg oral capsule (20 sources) Start: End: take 2 capsules by mouth twice daily mycophenolate mofetil (CELLCEPT) 250 mg capsule Indications: Kidney replaced by transplant , Need for prophylactic immunotherapy Take 2 capsules by mouth two times a day. 360 capsule 3 11/26/2023 Active Start: 07-01-2022 End: 11-20-2023 take 2 capsules by mouth twice daily mycophenolate mofetil (CELLCEPT) 250 mg capsule Indications: Kidney replaced by transplant , Need for prophylactic immunotherapy take 2 capsules by mouth twice a day 360 capsule 3 06/26/2023 11/20/2023 Discontinued Start: 04-17-2021 End: 03-19-2022 take 2 capsules [...] capsules by m outh twice a day Take 2 capsules by m outh two times a day. predniSONE 5 mg oral tablet (20 sources) [...] 1 tablet by jennifer th once daily regadenoson 0.4 mg injection (LEXISCAN) (1 source) Start: 11-10-19 End: 11-17-19 regadenoson 0.4 mg injection (LEXISCAN) rivaroxaban 20 mg oral tablet (8 sources) Factor Xa Inhibitor Start: 09-30-19 take 1 tablet by mouth once daily at dinner rivaroxaban (XARELTO) 20 mg tablet Take 1 tablet by mouth daily with dinner. 90 tablet 3 09/30/2023 Active Comment on above: Take 1 tablet by jennifer th daily with dinner. sulfamethoxazole 400 mg / trimethoprim 80 mg [...] capsule (20 sources) Calcineurin Inhibitor Immunosuppressant Start: 09-29-19 take 1 capsule by mouth twice daily tacrolimus IR (PROGRAF) 1 mg capsule Indications: Kidney replaced by transplant Take(1) capsule by mouth twice daily 180 capsule 3 09/29/2023 Active Start: 09-20-2022 End: 12-05-2022 take 1 capsule by mouth twice daily [...] Take 2 capsules by m outh twice daily (Take 12 hours apart) Diagnosis Code: Z94.0 Take (2) capsules by mouth every morning and (1) capsule every evening Take(1) capsule by m outh twice daily Completed/Discontinued Medications Medication Drug Class(es) Dates Sig (Normalized) Sig (Original) acetaminophen 500 mg oral tablet (7 sources) Start: 10-05-2009 End: 09-16-2022 acetaminophen(TYLEN OL EXTRA STRENGTH 500 MG TAB) Take two(2) tablets every six(6) hours as needed for pain. 0 10/05/2009 09/16/2022 Discontinued (Course of therapy completed) Comment on above: Take two(2) tablets every six(6) hours as needed for pain. hydrOXYzine hydrochloride 25 mg oral tablet (9 [...] Take 1 tablet by jennifer twice daily. Problems Active Problems Problem Classification Problem Date Documented Da te Episodic/Chronic Abdominal hernia (20 sources) Umbilical hernia; Translations: [Umbilical hernia without obstruction or gangrene] 01-29-2012 Episodic Aortic; peripheral; and visceral artery aneurysms (9 sources) Aneurysm of ascending aorta; Translations: [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)] Onset: 11-10-2023 11-10-2023 Chronic Cardiac dysrhythmias (19 sources) Irregular heart beat; Translations: [Cardiac arrhythmia, unspecified] Onset: 06-30-2023 06-30-2023 Chronic Chronic kidney disease (1 source) Kidney transplant status; Translations: [Kidney replaced by transplant] Onset: 05-08-2009 Chronic Genitourinary congenital anomalies (20 sources) Multiple renal cysts; Translations: [Polycystic kidney, unspecified] Onset: 05-08-2009 05-08-2009 Chronic Hypertension with complications and secondary hypertension (20 sources) Hypertensive heart and renal disease with [...] Onset: 06-30-2023 Chronic Other aftercare (1 source) half-way (current) use of aspirin; Translations: [FDC CURRENT USE OF ASPIRIN] Onset: 04-22-2022 Episodic Other aftercare (1 source) Other oysterman (current) drug therapy; Translations: [OTH TERRITORY BUSINESS MANAGER CURRENT DRUG THERAPY] Onset: 04-22-2022 Episodic Other diseases of kidney and ureters (20 sources) Ureteric fistula; Translations: [Other specified disorders [...] source) Hypomagnesemia; Translations: [Hypomagnesemia] Onset: 06-30-2023 Chronic Melia-; endo-; and myocarditis; cardiomyopathy (except that caused by tuberculosis or sexually transmitted disease) (9 sources) Cardiomyopathy; Translations: [Cardiomyopathy, unspecified] Onset: 11-10-2023 11-10-2023 Chronic Past or Other Problems Problem Classification Problem Date Documented Da te Episodic/Chronic Other screening for suspected conditions (not mental disorders or infectious disease) (14 sources) Raised prostate specific antigen; Translations: [Elevated prostate specific antigen [PSA]] Onset: 04-29-2023 Episodic Residual codes; unclassified (20 sources) Prevention status; Translations: [Encounter for other specified prophylactic measures] Onset: 05-08-2009 05-08-2009 Episodic Results Test Name Value Interpretation Reference Range Facility ANES POSTPROC EVALon 024 ANES POSTPROC EVAL HNO ID: [id number] Author: MACRINA SCHULTE MD Service: Anesthesiology Author Type: Physician Type: Anesthesia Postprocedure Evaluation Filed: 03/05/2024 17:12 Note Text: POST ANESTHESIA EVALUATION NOTE : 1955 Procedure Summary Date: 03/05/24 Room / Location: EP ROOM 2 / [facility] EP Anesthesia Start: 1331 Anesthesia Stop: 1554 Procedures: COMPLETE EPS W/PVI ABL W/WO 3D MAP ICE ADD'L PVI ABLATION Diagnosis: Atrial fibrillation, unspecified type (HCC) (Atrial fibrillation, unspecified type (HCC) [I48.91]) Surgeons: Wei Pablo MD Responsible Provider: Macrina Schulte MD Anesthesia Type: general ASA Status: 3 Anesthesia Type: general Airway Type: ETT Last Vitals Vitals Value Taken Time BP 136/89 03/05/24 1700 Temp 36.2 ?C (97.1 ?F) 03/05/24 1700 Pulse 91 03/05/24 1711 Resp 20 03/05/24 1711 SpO2 99 % 03/05/241710 Vitals shown include unfiled device data. Post Anesthesia Patient Status Patient Evaluation: PACU. PACU/ICU Patient Condition: stable. Anticipated Disposition: inpatient floor planned admission. Neurological Status: aware and responsive. Pulmonary Status: breathing comfortably on supplemental oxygen Airway Control: returned to baseline unsupported. Cardiovascular Status: stable. Pain Management: clinically adequate Postoperative Hydration: acceptable. Intraoperative Events: no significant anesthesia events Post Operative Nausea/Vomiting Status: no significant post operative nausea or vomiting Recommendation: continue current plan of care. Anesthesia Observations No Documentation SIGNATURE: Macrina Schulte MD PATIENT NAME: Link Rosen DATE: March 05, 2024 TIME: 5:12 PM CSN: [id number] [facility] ANES PRE-OPon 03-05-2024 ANES PRE-OP HNO ID: [id number] Author: MACRINA SCHULTE MD Service: Anesthesiology Author Type: Physician Type: Anesthesia Preprocedure Evaluation Filed: 03/05/2024 12:45 Note Text: ANESTHESIOLOGY DAY OF SURGERY NOTE : 1955 Procedure Information Date/Time: 03/05/24 1330 Procedures: COMPLETE EPS W/PVI ABL W/WO 3D MAP ICE - Carto, Ice, [place], enso etm esophageal cooling ADD'L PVI ABLATION Location: EP ROOM 2 / EP Surgeons: Wei Pablo MD Estimated body mass index is 38.19 kg/m? as calculated from the following: Height as of this encounter: 213.4 cm (7'). Weight as of this encounter: 173.9 kg (383 lb 4.8 oz). 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 Pertinent labs/imaging/results: ECHO CONCLUSIONS: - Technically difficult exam due to body habitus and suboptimal positioning. - Exam indication: Pre-op Cardioversion - The left ventricle is normal in size. Left ventricular systolic function is mildly decreased. EF = 45 ? 5% (visual est.) Definity contrast used for endocardial border detection. Left ventricular diastolic function was not evaluated due to AF. - The right ventricle is normal in size. Right ventricular systolic function is normal. - The left atrial cavity is mildly dilated. - The visualized aorta is dilated with a maximal dimension of 4.9 cm. -Difficult exam due to frequent patient movement due to back spasms. -Difficult definity imaging. - The patient has not had a prior CC echocardiographic exam for comparison. I - PHYSICAL EVALUATION AIRWAY Patient intubated: No. Tracheostomy tube not present Mallampati: II. TM distance: >3 FB. Neck ROM: full ROM without neurological symptoms. Mouth opening: adequate. Short neck: no. Thick neck: no Carlos present: yes II - ANESTHESIA PLAN ASA Score: 3 Anesthetic Plan: general Airway type: ETT NPO Status: adequate Beta Uriel Monitoring Plan Monitoring plan: standard ASA. Post Procedure Analgesic Plan Postoperative analgesic plan: parenteral or oral opioids. Informed Consent Anesthetic risks, benefits, alternatives, personnel and consent discussed: yes. Patient / Responsible Alliance Party agrees to proceed: yes Patient / Surrogate agrees to blood products: Yes Potential Anesthesia issues that may suggest increased risk of complications or contraindication to planned procedure: none. Vitals Value Taken Time BP 122/84 06/28/24 1125 Pulse 110 03/05/24 1125 Resp 16 03/05/24 1125 Temp 36.5 ?C (97.7 ?F) 03/05/24 1125 SpO2 97 % 03/05/24 1125 No current facility-administered medications on file as of 03/05/2024. Outpatient Medications as of 03/05/2024 Medication Sig - mycophenolate mofetil (CELLCEPT) 250 mg capsule Take 2 capsules by mouth two times a day. - metoprolol tartrate, short acting, (LOPRESSOR) 25 mg tablet Take 1.5 tablets by mouth two times a day. - rivaroxaban (XARELTO) 20 mg tablet Take 1 tablet by mouth daily with dinner. - tacrolimus IR (PROGRAF) 1 mg capsule Take(1) capsule by mouth twice daily - predniSONE (DELTASONE) 5 mg tablet take 1 tablet by mouth once daily - sulfamethoxazole-trimethopr im (BACTRIM) 400-80 mg per tablet take 1 tablet by mouth once daily - gabapentin (NEURONTIN) 300 mg capsule Take 300 mg by mouth twice daily. - CALCIUM CARBONATE/VITAMIN D3 (CALCIUM + D ORAL) Take one(1) tablet two(2) times daily. - ASPIRIN 81 MG CHEWABLE TAB Take by mouth. I have interviewed and examined the patient. I have reviewed the medical record and/or the pre-anesthesia evaluation, pertinent labs, and test results. This contains updated information obtained within 48 hours of Surgery/Procedure. SIGNATURE: Macrina Schulte MD PATIENT NAME: Link Rosen DATE: March 05, 2024 TIME: 12:02 PM CSN: [id number] [facility] ECG COMPLETEon 03-05-2024 ECG COMPLETE Ventricular Rate : 8 8 BPM Atrial Rate : 89 BPM P-R Interval : 216 ms QRS Duration : 117 ms Q-T Interval : 379 ms QTC Calculation(Bazett) : 459 ms Calculated P Fraziers Bottom : 25 degrees Calculated R Fraziers Bottom : -61 degrees Calculated T Fraziers Bottom : -8 degrees Sinus rhythm Atrial premature complexes Borderline prolonged NV interval Incomplete left bundle branch block Consider anterior infarct Abnormal ECG Confirmed by JOSHUA ROONEY M.D. ([id number]) on 03/09/2024 12:56:20 PM NAME : LINK ROSEN PID : [id number] : 1955 Gender : Male Race : ORD : [id number] Procedure Date : Mar 05 2024 17:38:48 Edit Date : Mar 09 2024 12:56:23 Diagnosis: Sinus rhythm Atrial premature complexes Borderline prolonged NV interval Incomplete left bundle branch block Consider anterior infarct Abnormal ECG Confirmed by JOSHUA ROONEY M.D. ([id number]) on 03/09/2024 12:56:20 PM Test Reason : Post OP Location : 400 : FVEKG POOL Overread By : JOSHUA ROONEY M.D. Edited By : JOSHUA ROONEY M.D. Referred By : , Acquired by : [id number], [facility] ECG COMPLETE Ventricular Rate : 1 34 BPM Atrial Rate : 143 BPM P-R Interval : 136 ms QRS Duration : 114 ms Q-T Interval : 340 ms QTC Calculation(Bazett) : 508 ms Calculated R Fraziers Bottom : -62 degrees Calculated T Fraziers Bottom : 97 degrees Atrial fibrillation Incomplete left bundle branch block Consider anterior infarct Prolonged QT interval Baseline wander in lead(s) II,III,aVF Abnormal ECG Confirmed by EDI GALEANO MD ([id number]) on 03/08/2024 5:48:09 PM NAME : LINK ROSEN PID : [id number] : 1955 Gender : Male Race : ORD : [id number] Procedure Date : Mar 05 2024 11:41:16 Edit Date : Mar 08 2024 17:48:10 Diagnosis: Atrial fibrillation Incomplete left bundle branch block Consider anterior infarct Prolonged QT interval Baseline wander in lead(s) II,III,aVF Abnormal ECG Confirmed by EDI GALEANO MD ([id number]) on 03/08/2024 5:48:09 PM Test Reason : Pre OP Location : 400 : FVEKG 69 Overread By : EDI GALEANO MD Edited By : EDI GALEANO MD Referred By : , Acquired by : , [facility] HISTORY PHYSICALon HISTORY PHYSICAL HNO ID: [id number] Author: YANA CARRINGTON APRN.POST ACUTE CARE NURSE Service: Cardiovascular Medicine Author Type: Nurse Practitioner Type: H&P Filed: 03/05/2024 11:50 Note Text: HISTORY AND PHYSICAL EXAMINATION SERVICE DATE: 03/05/2024 SERVICE TIME: 11:43 AM PROCEDUREALIST: Surgeon(s) and Role: * Wei Pablo MD - Primary PRIMARY CARE PHYSICIAN: Kathleen Sams PA-C SUBJECTIVE CHIEF COMPLAINT: palpitations, persistent atrial fibrillation HPI: This is a 68 year old male pmhx as listed below who presents with past medical history of polycystic kidney disease sp kidney transplant in 2008, CKd, HTN, nonobstructive CAD, persistent atrial fibrillation sp unsuccessful cvn 10/2023, who presents with c/o palpitations, and fatigue. EKG today shows atrial fib with RVR. PAST MEDICAL HISTORY: PAST MEDICAL HISTORY Diagnosis Date Coronary atherosclerosis of unspecified type of vessel, seminole or graft Mild 3-vessel Coronary artery disease Hypertension Polycystic kidney, unspecified type 1993 S/p cadaver renal transplant Umbilical hernia PAST SURGICAL HISTORY: PAST SURGICAL HISTORY Procedure Laterality Date LAPAROSCOPY REPAIR INCISIONAL HERNIA REDUCIBLE 2001 umbilical PAST SURGICAL HISTORY OF 07/27/07 Colon Polypectomy- Tubular Adenoma PAST SURGICAL HISTORY OF 10/17 Placement of Left UE AVF x 2 TONSILLECTOMY PRIMARY/SECONDARY Tonsillectomy FAMILY HISTORY: FAMILY HISTORY Problem Relation Age of Onset other (Polycystic Kidney [Other]) Mother other (Polycystic Kidney [Other]) Brother other (CVA [Other]) Father Emphysema Father SOCIAL HISTORY: Social History Tobacco Use Smoking status: Never Smokeless tobacco: Never Vaping Use Vaping Use: Never used Substance Use Topics Alcohol use: No Comment: no alcohol > 2 yrs, no previous hx of abuse Drug use: No MEDICATIONS: Prior to Admission Medications mycophenolate mofetil (CELLCEPT) 250 mg capsule, Take 2 capsules by mouth two times a day., Disp: 360 capsule, Rfl: , 03/05/2024 metoprolol tartrate, short acting, (LOPRESSOR) 25 mg tablet, Take 1.5 tablets by mouth two times a day., Disp: 270 tablet, Rfl: , 03/04/2024 rivaroxaban (XARELTO) 20 mg tablet, Take 1 tablet by mouth daily with dinner., Disp: 90 tablet, Rfl: , 03/04/2024 tacrolimus IR (PROGRAF) 1 mg capsule, Take(1) capsule by mouth twice daily, Disp: 180 capsule, Rfl: , 03/05/2024 predniSONE (DELTASONE) 5 mg tablet, take 1 tablet by mouth once daily, Disp: 90 tablet, Rfl: , 03/04/2024 sulfamethoxazole-trimethopr im (BACTRIM) 400-80 mg per tablet, take 1 tablet by mouth once daily, Disp: 90 tablet, Rfl: 3, 03/04/2024 gabapentin (NEURONTIN) 300 mg capsule, Take 300 mg by mouth twice daily., Disp: , Rfl: , 03/04/2024 CALCIUM CARBONATE/VITAMIN D3 (CALCIUM + D ORAL), Take one(1) tablet two(2) times daily., Disp: , Rfl: , 03/04/2024 ASPIRIN 81 MG CHEWABLE TAB, Take by mouth., Disp: , Rfl: 0 CURRENT ALLERGIES: ALLERGIES No Known Allergies COMPLETE REVIEW OF SYSTEMS: GENERAL: No weight loss, malaise or fevers., SEE HPI HEENT: No changes in vision, no nose bleeds or other nasal problems NECK: Negative for lumps, goiter, and significant neck swelling RESPIRATORY: Negative for cough, wheezing or shortness of breath. CARDIOVASCULAR: No leg swelling claudication or palpitations GI: Negative for abdominal discomfort, blood in stools or black stools or change in bowel habits MUSCULOSKELETAL: Negative for joint pain or swelling, PSYCH: Negative for depression or sleep disturbance. HEMATOLOGY/LYMPHOLOGY: Negative for prolonged bleeding, bruising easily or swollen nodes ENDOCRINE: Is not diabetic, does not have hyperthyroidism. NEURO: No history of syncope, paralysis, seizures or tremors All other reviewed and negative other than HPI. History of Bleeding Issues: No, on OAC, last dose last night OBJECTIVE PHYSICAL EXAM: Patient Vitals for the past 24 hrs: BP Temp Temp src Pulse Resp SpO2 Height Weight 03/05/24 1125 122/84 36.5 ?C (97.7 ?F) Temporal 110 16 97 % 213.4 cm (7') (!) 173.9 kg (383 lb 4.8 oz) Body mass index is 38.19 kg/m?. GENERAL: Alert and orianted x 3, no distress, cooperative,pt is 7ft tall SKIN: Skin color, turgor normal. No rashes or lesions. EARS: External ears normal. NECK: No jugulovenous distention, no carotid bruits, supple. CHEST: No deformities. LUNGS: Lungs clear to auscultation. No rales or wheezing. CARDIAC: Rhythm irregular, normal S1 and S2; No murmurs ABDOMEN: Abdomen soft, non-tender.. No masses or organomegaly. EXTREMITIES: Extremities normal. No deformities, edema, clubbing or skin discoloration. NEURO: Gait normal. Reflexes normal and symmetric. Sensation grossly intact., Cranial nerves II-XII intact PULSES: 2+ radial 2+ dorsalis pedis 2+ posterial tibial DATA: Diagnostic tests reviewed for today's visit: Most recent EKG Most recent labs POC INR: CBC: Recent Labs 03/02/24 0929 (more content not included)... [facility] NURSING PROGon 03-05-2024 NURSING PROG HNO ID: [id number] Author: YESICA PARDO, RN Service: Nursing Author Type: Registered Nurse Type: Nursing Progress Note Filed: 03/05/2024 22:31 Note Text: Assumed care of pt at 1930 pt sitting up in bed alert and oriented, Bilat groin sites assessed both stable left groin dressing had ooze prior to this nurse coming on shift but is no longer oozing site is soft with moderate amount of drainage noted to dressing, sandbag removed, right groin site stable no bleeding or hematoma noted, distal pulses present, pt up with assist and walker ambulating without issue. Voiding without issue, vss, SR on tele,safety reviewed, will cont to monitor [facility] NURSING PROG HNO ID: [id number] Author: FLORY ARAGON RN Service: Nursing Author Type: Registered Nurse Type: Nursing Progress Note Filed: 03/05/2024 19:05 Note Text: ~[id number] Pt arrived on unit from pre/post, pt denies pain, right groin dressing CDI, no bleeding or hematoma, left groin site shadowing noted and marked, some firmness proximal to site and manual pressure held by transporting RN, vascular checks WNL, palpate bilateral DPs, lungs CTA anteriorly and laterally, +BSx4, radial pulses present, pt is SR on the monitor, noted that pt had a previous lab on 03/02 showed Magnesium level of 1.6, pt stated he self administered magnesium at home, but was not prescribed replacement. Pt resting, tray ordered, beverages provided, awaiting medications to be approved by pharmacy, call light in reach, report given to next shift RN. [facility] NURSING PROG HNO ID: [id number] Author: MATIAS METZGER, LISE Service: Nursing Author Type: Registered Nurse Type: Nursing Progress Note Filed: 03/05/2024 18:59 Note Text: Nursing Progress Note Topic of Note: post procedure PATIENT NAME: Link Rosen Patient Location: EP LAB POOL/ EP LAB POOL Room: EP LAB POOL ( INVASIVE CARDIOLOGY) Patient returned to recovery s/p pvi . See operative note. Right groin had to 1 sheaths 8.5 fr. removed in or, perclose. Dressing dry and intact, no hematoma or bleeding noted. Left had 2 groin 8fr and 9fr sheath removed in OR perclose. Left groin dressing intact, no hematoma or bleeding noted. Dressing dry and intact. No signs of hematoma or bleeding noted. Patient alert oriented x3. Respiration even, no acute distress. Patient instructed to lay flat, keeping legs straight, still. Patient states understanding. Teach back method used. Brother Kodak and [id number] Rosalind at bedside. Call light in reach. 1651 Patient tolerated food, able to swallow without any difficulty. 1730 Report [facility] D[facility] LEZAMA [facility] 1750 Pt ambulated to the restroom with standby staff assistance, steady gait. Denies any dizziness/lightheadedness. Site remains free of bleeding and hematoma with movement AND ambulation. 1800 [facility] in stable condition. All belongings returned. Reviewed site at the bedside with Roxi LEZAMA. Left groin had quarter size oozing, no hematoma 5lbs sand applied. Right groin no signs of bleeding or hematoma at site, bilateral DP pulses palpable, with good capillary refill,warm. This note was completed by: Matias Metzger Normal [facility] TYPE + SCREENon 03-05-2024 ABO AB [facility] Comment on above: Order Comment: Speci men Type: BLOOD SPECIMEN Ordering Facility: [facility] Address: [address] [place] [address] Performed By: #### T SCR #### [facility] CLIA [id number] [address] [place] [address] [place] HISTORICAL AB SCR STATUS Negative Normal [facility] Comment on above: Order Comment: Speci men Type: BLOOD SPECIMEN Ordering Facility: [facility] Address: [address] [place] [address] Performed By: #### T SCR #### [facility] CLIA [id number] [place], [place] [id number] [place] Rh Nom (Bld) Positive Normal [facility] Comment on above: Order Comment: Speci men Type: BLOOD SPECIMEN Ordering Facility: [facility] Address: [address] [place] [address] Performed By: #### T SCR #### [facility] CLIA [id number] [place] [address] [place] TYPE AND SCREEN EXPIRATION 03/08/2024 23:59 Normal [facility] Comment on above: Order Comment: Speci men Type: BLOOD SPECIMEN Ordering Facility: [facility] Address: [address] [place] [address] Performed By: #### T SCR #### [facility] CLIA [id number] [address] [place], [place] [id number] [place] CBC panel Auto (Bld)on 03-02 Erythrocyte distribution width (RBC) [Ratio] 12.6 % Normal 11.5-15.0 [facility] Comment on above: Order Comment: Speci men Type: BLOOD SPECIMEN Ordering Facility: [facility] Address: [address] [place] [address] Performed By: #### 5 8410-2 #### [facility] CLIA [id number] [address] [place] [address] Hematocrit (Bld) [Volume fraction] 44.2 % Normal 39.0-51.0 [facility] Comment on above: Order Comment: Speci men Type: BLOOD SPECIMEN Ordering Facility: [facility] Address: [address] [place] [address] Performed By: #### 5 8410-2 #### [facility] CLIA [id number] [address] [place] [address]348 Hemoglobin (Bld) [Mass/Vol] 15.1 g/dL Normal 13.0-17.0 [facility] Comment on above: Order Comment: Speci men Type: BLOOD SPECIMEN Ordering Facility: [facility] Address: [address] [place] [address] Performed By: #### 5 8410-2 #### [facility] CLIA [id number] [address] [place] [address] 38361 MCH (RBC) [Entitic mass] 31.7 pg Normal 26.0-34.0 [facility] Comment on above: Order Comment: Speci men Type: BLOOD SPECIMEN Ordering Facility: [facility] Address: [address] [place] [address] Performed By: #### 5 8410-2 #### [facility] CLIA [id number] [address] [place] [address] 25055 MCHC (RBC) [Mass/Vol] 34.2 g/dL Normal 30.5-36.0 [facility] Comment on above: Order Comment: Speci men Type: BLOOD SPECIMEN Ordering Facility: [facility] Address: [address] [place] [address] Performed By: #### 5 8410-2 #### [facility] CLIA [id number] [address] [place] [address] 22447 MCV (RBC) [Entitic vol] 92.9 fL Normal 80.0-100.0 [facility] Comment on above: Order Comment: Speci men Type: BLOOD SPECIMEN Ordering Facility: [facility] Address: [address] [place] [address] Performed By: #### 5 8410-2 #### [facility] CLIA [id number] [address] [place] [address] 58677 Nucleated RBC (Bld) [#/Vol] 10*3/uL Normal <0.01 [facility] Comment on above: Order Comment: Speci men Type: BLOOD SPECIMEN Ordering Facility: [facility] Address: [address] [place] [address] Performed By: #### 5 8410-2 #### [facility] CLIA [id number] [address] [place] [address]6621 Platelet mean volume (Bld) [Entitic vol] 8.9 fL Low 9.0-12.7 [facility] Comment on above: Order Comment: Speci men Type: BLOOD SPECIMEN Ordering Facility: [facility] Address: [address] [place] [address] Performed By: #### 5 8410-2 #### [facility] CLIA [id number] [address] [place] [address] 27742 Platelets (Bld) [#/Vol] 143 10*3/uL Low 150-400 [facility] Comment on above: Order Comment: Speci men Type: BLOOD SPECIMEN Ordering Facility: [facility] Address: [address] [place] [address] Performed By: #### 5 8410-2 #### [facility] CLIA [id number] [address] [place] [address] 60469 RBC (Bld) [#/Vol] 4.76 10*6/uL Normal 4.20-6.00 [facility] Comment on above: Order Comment: Speci men Type: BLOOD SPECIMEN Ordering Facility: [facility] Address: [address] [place] [address] Performed By: #### 5 8410-2 #### [facility] CLIA [id number] [address] [place] [address]857 WBC (Bld) [#/Vol] 6.19 10*3/uL Normal 3.70-11.00 [facility] Comment on above: Order Comment: Speci men Type: BLOOD SPECIMEN Ordering Facility: [facility] Address: [address] [place] [address] Performed By: #### 5 8410-2 #### [facility] CLIA [id number] [address] [place] [address] 44578 Comprehensive metabolic 2000 panelon 03-02-2024 Albumin [Mass/Vol] 4.2 g/dL Normal 3.9-4.9 [facility] Comment on above: Order Comment: Speci men Type: BLOOD SPECIMENOrdering Facility: [facility] Address: [address] [place] [address] Performed By: #### 2 4323-8, 2776-09, ####[facility] [id number] [place] [address] ALP [Catalytic activity/Vol] 59 U/L Normal 38-113 [facility] Comment on above: Order Comment: Speci men Type: BLOOD SPECIMENOrdering Facility: [facility] Address: [address] [place], [place] [address] Performed By: #### 2 4323-8, 2776-09, ####[facility] [id number] [place] [address] ALT [Catalytic activity/Vol] 11 U/L Normal 10-54 [facility] Comment on above: Order Comment: Speci men Type: BLOOD SPECIMENOrdering Facility: [facility] Address: [address] [place] [address] Performed By: #### 2 4323-8, 2776-09, ####[facility] [id number] [place] [address] Anion gap [Moles/Vol] 8 mmol/L Normal 8-15 [facility] Comment on above: Order Comment: Speci men Type: BLOOD SPECIMENOrdering Facility: [facility] Address: [address] [place], [place] [address] Performed By: #### 2 4323-8, 2776-09, ####[facility] [id number] [place] [address] AST [Catalytic activity/Vol] 15 U/L Normal 14-40 [facility] Comment on above: Order Comment: Speci men Type: BLOOD SPECIMENOrdering Facility: [facility] Address: [address] [place], [place] [address] Performed By: #### 2 4323-8, 2776-09, ####[facility] [id number] [place] [address] Bilirubin [Mass/Vol] 1.3 mg/dL Normal 0.2-1.3 [facility] Comment on above: Order Comment: Speci men Type: BLOOD SPECIMENOrdering Facility: [facility] Address: [address] [place] [address] Performed By: #### 2 4323-8, 2776-09, ####[facility] [id number] [place] [address] Calcium [Mass/Vol] 10.6 mg/dL High 8.5-10.2 [facility] Comment on above: Order Comment: Speci men Type: BLOOD SPECIMENOrdering Facility: [facility] Address: [address] [place] [address] Performed By: #### 2 4323-8, 2776-09, ####[facility] [id number] [place] [address] Chloride [Moles/Vol] 106 mmol/L Normal 98-107 [facility] Comment on above: Order Comment: Speci men Type: BLOOD SPECIMENOrdering Facility: [facility] Address: [address] [place] [address] Performed By: #### 2 4323-8, 2776-09, ####[facility] [id number] [place] [address] CO2 [Moles/Vol] 28 mmol/L Normal 22-30 [facility] Comment on above: Order Comment: Speci men Type: BLOOD SPECIMENOrdering Facility: [facility] Address: [address] [place] [address] Performed By: #### 2 4323-8, 27703-08, ####[facility] [id number] [place] [address] Creatinine [Mass/Vol] 1.55 mg/dL High 0.73-1.22 [facility] Comment on above: Order Comment: Anitra echeverria Type: BLOOD SPECIMENOrdering Facility: [facility] Address: [address] [phone] Performed By: #### 2 4323-8, 2777-, ####[facility] [id number] [place] [address] Creatinine and Glomerular filtration rate.predicted panel (S/P/Bld) 49 mL/min/1.73m??? Low >=60 [facility] Comment on above: Order Comment: Anitra echeverria Type: BLOOD SPECIMENOrdering Facility: [facility] Address: [address] [phone] Result Comment: Katalina mated Glomerular Filtration Rate [...] actual GFR. Performed By: #### 2 4323-8, 27703-08, ####[facility] [id number] [place] [address] Glucose [Mass/Vol] 133 mg/dL High 74-99 [facility] Comment on above: Order Comment: Anitra echeverria Type: BLOOD SPECIMENOrdering Facility: [facility] Address: [address] [phone] Result Comment: The [place] [employer] (ADA) provides guidance for cutoff [...] Standards of Medical Care in Diabetes 2016, [place] [employer]. Diabetes Care. 2016.39(Suppl 1). Performed By: #### 2 4323-8, 2776-09, ####[facility] [id number] [place] [address] Potassium [Moles/Vol] 4.3 mmol/L Normal 3.7-5.1 [facility] Comment on above: Order Comment: Speci men Type: BLOOD SPECIMENOrdering Facility: [facility] Address: [address] [place] [address] Performed By: #### 2 4323-8, 2776-09, ####[facility] [id number] [place] [address] Protein [Mass/Vol] 6.3 g/dL Normal 6.3-8.0 [facility] Comment on above: Order Comment: Speci men Type: BLOOD SPECIMENOrdering Facility: [facility] Address: [address] [place] [address] Performed By: #### 2 4323-8, 2776-09, ####[facility] [id number] [place] [address] Sodium [Moles/Vol] 142 mmol/L Normal 136-144 [facility] Comment on above: Order Comment: Speci men Type: BLOOD SPECIMENOrdering Facility: [facility] Address: [address] [place] [address] Performed By: #### 2 4323-8, 2776-09, ####[facility] [id number] [place] [address] Urea nitrogen [Mass/Vol] 13 mg/dL Normal 9-24 [facility] Comment on above: Order Comment: Speci men Type: BLOOD SPECIMENOrdering Facility: [facility] Address: [address] [place] [address] Performed By: #### 2 4323-8, 2777-1, 02122-3 ####[facility] [id number] [place] [address] Magnesium SerPl-ncon 03-02 Magnesium [Mass/Vol] 1.6 mg/dL Low 1.7-2.3 [facility] Comment on above: Order Comment: Speckina echeverria Type: BLOOD SPECIMENOrdering Facility: [facility] Address: [address] [place], [place] [address] Performed By: #### 2 4323-8, 2777-, 97002-8 ####[facility] [id number] [place] [address] Phosphate SerPl-ncon 03-02 Phosphate [Mass/Vol] 3.0 mg/dL Normal 2.7-4.8 [facility] Comment on above: Order Comment: Anitra echeverria Type: BLOOD SPECIMENOrdering Facility: [facility] Address: [address] [place], [place] [address] Performed By: #### 2 4323-8, 2777-, ####[facility] [id number] [place] [address] Tacrolimus Bld-ncon 2023 Tacrolimus (Bld) [Mass/Vol] 6.0 ng/mL Normal 5.0-20.0 [facility] Comment on above: Order Comment: Anitra echeverria Type: BLOOD SPECIMEN Ordering Facility: [facility] Address: [address] [place], [place] [phone] Result Comment: Olivia vidualized target levels for [...] situation. Test performed by chemiluminescent immunoassay using [employer] i. Performed By: #### 5 8410-2 #### [facility] CLIA [id number] [address] [place] [address] Abel 01-21-2024 RENEA Telephone (CARDAV) LINK ROSEN ([id number]) 1955 M Date Time Provider Department 01/21/24 WEI PABLO During your visit today, we recorded the following information about you: Karlene Nguyen 01/21/2024 8:39 PM Signed ----- Message from MINDY May sent at 01/21/2024 12:16 PM EDT ----- Regarding: FW: PVI 02/10 ----- Message ----- From: Wei Pablo MD Sent: 01/15/2024 1:45 PM EDT To: MINDY May; Karlene Mondragon; # Subject: PVI Dot phrase for pVI. He would prefer to be 2nd round- He lives in [place] ( [place] [address] ). Ryan Ruperto EPS Lab Request: EPS Patient: Link Rosen Requested by Wei Pablo MD Requesting Physician: Dr Michael Scott Procedure Physician: Wei Pablo MD Procedure Requested: AFIB CPT:23874 Anesthesia type: General Date of Last HANDP? 01/2024 Indications / Dx for Procedure: A-Fib Procedure Time Frame: 3-4 weeks Estimated length of case: 2 HOURS Mapping System: [employer] (CARTO) Special Needs: ICE (intracardiac echo), enso etm esophageal cooling Potential Research Patient? No Type of bed needed? OVERNIGHT Medication to be stopped(please specify medication/timeframe): No Karlene Nguyen 01/21/2024 8:40 PM Signed Called and spoke to patient and scheduled his pvi ablation with Dr Pablo for February 10 at [facility]. Patient given instructions and sent mychart. Sánchez up scheduled. Samara Cm 01/22/2024 10:21 AM Signed Pt requesting a call back to reschedule surgery again. Pt will not have a ride this day. [phone] Samara Mondragon Allergies As of Date: 01/21/2024 (No Known Allergies) Date Reviewed: 01/15/2024 Reviewed by: Amanda Ramirez MA - Fully Assessed Prescriptions as of 01/22/2024 - mycophenolate mofetil (CELLCEPT) 250 mg capsule Take 2 capsules by mouth two times a day. - metoprolol tartrate, short acting, (LOPRESSOR) 25 mg tablet Take 1.5 tablets by mouth two times a day. - rivaroxaban (XARELTO) 20 mg tablet Take 1 tablet by mouth daily with dinner. - tacrolimus IR (PROGRAF) 1 mg capsule Take(1) capsule by mouth twice daily - predniSONE (DELTASONE) 5 mg tablet take 1 tablet by mouth once daily - sulfamethoxazole-trimethopr im (BACTRIM) 400-80 mg per tablet take 1 tablet by mouth once daily - gabapentin (NEURONTIN) 300 mg capsule Take 300 mg by mouth twice daily. - CALCIUM CARBONATE/VITAMIN D3 (CALCIUM + D ORAL) Take one(1) tablet two(2) times daily. - ASPIRIN 81 MG CHEWABLE TAB 1 Tab ORAL DAILY Meds Comments as of 02/22/2010: Patient states he doesn't always take Pepcid. 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] 05/08/2009 S/p cadaver renal transplant [Z94.0] Umbilical hernia [K42.9] AF (paroxysmal atrial fibrillation) (HCC) [I48.*09/30/2023 Cardiomyopathy (HCC) [I42.9] 11/10/2023 Aneurysm of ascending aorta without rupture (HC*11/10/2023 Encounter Status:Closed by KARLENE NGUYEN on 01/21/24 Normal [facility] CNOVon 01-15-2024 CNOV Office Visit (CAEPLN ) RADHALINK ADAMS ([id number]) 1955 M Date Time Provider Department 01/15/24 1:30 PM WEI PABLO CAEPLN During your visit today, we recorded the following information about you: Pulse Blood pressure Weight 96/minute 126/82 175.2 kg Wei Pablo MD 01/15/2024 1:46 PM Signed [facility] SECTION OF REGIONAL CARDIOLOGY OUTPATIENT VISIT DATE January 15, 2024 OUTPATIENT VISIT TYPE NEW PRIMARY CARE PHYSICIAN: Kathleen Sams [address] [place] [address] A written report of the findings and recommendations will be sent to the requesting provider via shared medical record or via [employer]. Patient is being seen at the request of Dr Scott for Afib HISTORY OF PRESENT ILLNESS: Mr. Rosen is a 68 year old male who lives in [place] with HTN, Polycystic kidney s/p renal transplant. Noted with new onset AF on recent office visit ( 09/2023)with RVR. Symptoms of exertional palpitation. Currently on metoprolol and Xarelto. Underwent DCCV into sinus rhythm in 11/05/23. However he reverted back into AF with associated symptoms again. IMPRESSION: Persistent AF: Refractory to DCCV with early recurrence. KIESHA 36 with moderate LV dysfunction ( LVEF 45%) in the setting of AF. He could not get stress test done due to high heart rates . Given LV dysfunction, s/p renal transplant on anti-rejection meds, CKD, he has limited AAD options ( low EF would preclude class 1C drug; tacrolimus use precludes most class III use given drug-drug interaction) it is reasonable to consider afib ablation as the next step. Risk and benefits discussed and he is agreeable to proceed. CKD S/p renal transplant. NICM: Likley tachy mediated. Clinically euvolemic. For afib ablation as above. PLAN AND RECOMMENDATIONS: Persistent AF: Refractory to DCCV with early recurrence. KIESHA 36 with moderate LV dysfunction ( LVEF 45%) in the setting of AF. He could not get stress test done due to high heart rates . Given LV dysfunction, s/p renal transplant on anti-rejection meds, CKD, he has limited AAD options ( low EF would preclude class 1C drug; tacrolimus use precludes most class III use given drug-drug interaction) it is reasonable to consider afib ablation as the next step. Risk and benefits discussed and he is agreeable to proceed. CKD S/p renal transplant. NICM: Likley tachy mediated. Clinically euvolemic. For afib ablation as above. REVIEW OF SYSTEMS: Chest pain No Shortness of breath No Bleeding No Dizziness No Syncope No Palpations No 10 systems reviewed and are negative with the exception of pertinent positives described in HPI PHYSICAL EXAMINATION: There were no vitals taken for this visit. HEENT: normocephalic, EOMI Heart: regular rhythm Lungs: clear to auscultation Abdomen: bowel sounds present Extremities: no edema Musculoskeletal: chest wall nontender Neurological: alert and oriented Psychiatric: appropriate and cooperative Skin: no rash, cellulitis or lesions appreciated CARDIOVASCULAR MEDICINE TESTING: I have personally reviewed ECG Last ECHO Result Conclusion ECHO Collected: 10/31/2023 10:23 AM (Final result) Impression: CONCLUSIONS: - Technically difficult exam due to body habitus and suboptimal positioning. - Exam indication: Pre-op Cardioversion - The left ventricle is normal in size. Left ventricular systolic function is mildly decreased. EF = 45 ? 5% (visual est.) Definity contrast used for endocardial border detection. Left ventricular diastolic function was not evaluated due to AF. - The right ventricle is normal in size. Right ventricular systolic function is normal. - The left atrial cavity is mildly dilated. - The visualized aorta is dilated with a maximal dimension of 4.9 cm. -Difficult exam due to frequent patient movement due to back spasms. -Difficult definity imaging. - The patient has not had a prior CC echocardiographic exam for comparison. * * * Final * * * Last EKG Result Conclusion ECG COMPLETE Collected: 12/26/2023 1:27 PM (Final result) Impression: ATRIAL FIBRILLATION WITH RAPID VENTRICULAR RESPONSE Confirmed by RICKY GRIGGS MD ([id number]) on 12/26/2023 6:35:59 PM PAST CARDIAC HISTORY: See below PAST MEDICAL HISTORY Diagnosis Date Coronary atherosclerosis of unspecified type of vessel, seminole or graft Mild 3-vessel Coronary artery disease Hypertension Polycystic kidney, unspecified type 1993 S/p cadaver renal transplant Umbilical hernia PAST SURGICAL HISTORY Procedure Laterality Date LAPAROSCOPY REPAIR INCISIONAL HERNIA REDUCIBLE 2001 umbilical PAST SURGICAL HISTORY OF 07/27/07 Colon Polypectomy- Tubular Adenoma PAST SURGICAL HISTORY OF 2006, 10/17 Jose (more content not included)... Normal [facility] ECG COMPLETEon 01-15-2024 ECG COMPLETE Ventricular Rate : 9 6 BPM QRS Duration : 100 ms Q-T Interval : 350 ms QTC Calculation(Bazett) : 442 ms Calculated R Fraziers Bottom : -79 degrees Calculated T Fraziers Bottom : 31 degrees ATRIAL FIBRILLATION LEFT AXIS DEVIATION LOW VOLTAGE QRS, CONSIDER PULMONARY DISEASE, PERICARDIAL EFFUSION, OR NORMAL VARIANT INFERIOR MYOCARDIAL INFARCTION , AGE UNDETERMINED POSSIBLE ANTEROLATERAL INFARCTION , AGE UNDETERMINED ABNORMAL ECG Confirmed by WEI PABLO MD ([id number]) on 01/17/2024 7:12:52 PM NAME : LINK ROSEN PID : [id number] : 1955 Gender : Male Race : ORD : [id number] Procedure Date : Jan 15 2024 13:24:01 Edit Date : Jan 17 2024 19:12:53 Diagnosis: ATRIAL FIBRILLATION LEFT AXIS DEVIATION LOW VOLTAGE QRS, CONSIDER PULMONARY DISEASE, PERICARDIAL EFFUSION, OR NORMAL VARIANT INFERIOR MYOCARDIAL INFARCTION , AGE UNDETERMINED POSSIBLE ANTEROLATERAL INFARCTION , AGE UNDETERMINED ABNORMAL ECG Confirmed by WEI PABLO MD ([id number]) on 01/17/2024 7:12:52 PM Test Reason : I48.0 AF (paroxysmal atrial fibrillation) ([facility]) Location : 145 : LOCARD Overread By : WEI PABLO MD Edited By : WEI PABLO MD Referred By : Bev, Acquired by : ynes, Yury [facility] CARDIAC SPECT REST ONLYon 12-29-2023 [place] CARDIAC SPECT REST ONLY * * *Final Report* * * DATE OF EXAM: Dec 29 2023 9:28AM AFN 0090 - [place] CARDIAC SPECT REST ONLY / PROCEDURE REASON: atrial fib, abn ekg * * * * Physician Interpretation * * * * PATIENT: Name: MR. LINK ROSEN Age: 68 years Gender: M CONCLUSIONS: 1. SPECT Perfusion Study: Non-diagnostic due to no images were acquired. Patient was unable to tolerate laying flat. Referring physician aware. Prior Study Comparison No prior nuclear cardiology exam available for comparison. Nuclear Med Report:Stress only Exercise Stress Gated SPECT: One minute prior to peak exercise, the patient was injected IV with the radiotracer. Gated post stress tomographic imaging was performed 10 to 20 minutes later. See administered radiotracer and dose below. [facility] Date of service: 12/26/2023 1:51:27 PM Ordering Physician: EMANUEL SCOTT. Requesting Physician: Indication: Assessment for suspected CAD, Atrial Fibrillation and Unable to Exercise Interpreting physician: Klever Khan MD Exam Type: Rest Radiopharm: Tc-99m Tetrofosmin Dosage(mCi): 16 Image Quality The overall study imaging quality was deemed to be uninterpretable. FINDINGS: * * * Final * * * RP [employer] Dipper: BIRDIE Transcribe Date/Time: Dec 26 2023 1:51P Dictated by : KLEVER KHAN MD This examination was interpreted and the report reviewed and electronically signed by: KLEVER KHAN MD on Dec 29 2023 9:38AM EST [id number] Normal [facility] [id number] 12-26-2023 ECG01 Ventricular Rate : 1 28 BPM QRS Duration : 106 ms Q-T Interval : 328 ms QTC Calculation(Bazett) : 478 ms Calculated R Fraziers Bottom : -88 degrees Calculated T Fraziers Bottom : 50 degrees ATRIAL FIBRILLATION WITH RAPID VENTRICULAR RESPONSE Confirmed by RICKY GRIGGS MD ([id number]) on 12/26/2023 6:35:59 PM NAME : LINK ROSEN PID : [id number] : 1955 Gender : Male Race : ORD : Procedure Date : Dec 26 2023 13:27:58 Edit Date : Dec 26 2023 18:36:00 Diagnosis: ATRIAL FIBRILLATION WITH RAPID VENTRICULAR RESPONSE Confirmed by RICKY GRIGGS MD ([id number]) on 12/26/2023 6:35:59 PM Test Reason : Location : 192 : AVCRD Overread By : RICKY GRIGGS MD Edited By : RICKY GRIGGS MD Referred By : , Acquired by : , Normal [facility] ECG01 Ventricular Rate : 1 43 BPM QRS Duration : 108 ms Q-T Interval : 280 ms QTC Calculation(Bazett) : 432 ms Calculated R Fraziers Bottom : -88 degrees Calculated T Fraziers Bottom : 65 degrees 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 Confirmed by RICKY GRIGGS MD ([id number]) on 12/26/2023 6:36:09 PM NAME : LINK ROSEN PID : [id number] : 1955 Gender : Male Race : ORD : Procedure Date : Dec 26 2023 13:27:25 Edit Date : Dec 26 2023 18:36:13 Diagnosis: 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 Confirmed by RICKY GRIGGS MD ([id number]) on 12/26/2023 6:36:09 PM Test Reason : Location : 192 : AVCRD Overread By : RICKY GRIGGS MD Edited By : RICKY GRIGGS MD Referred By : , Acquired by : , Normal [facility] CBC panel Auto (Bld)on 12-01 Erythrocyte distribution width (RBC) [Ratio] 13.3 % Normal 11.5-15.0 [facility] Comment on above: Order Comment: Speci men Type: BLOOD SPECIMEN Ordering Facility: [facility] Address: [address] [place] [address] Performed By: #### 5 8410-2 #### [facility] CLIA [id number] [address] [place] [address]199 Hematocrit (Bld) [Volume fraction] 45.8 % Normal 39.0-51.0 [facility] Comment on above: Order Comment: Speci men Type: BLOOD SPECIMEN Ordering Facility: [facility] Address: [address] [place] [address] Performed By: #### 5 8410-2 #### [facility] CLIA [id number] [address] [place] [address]18 Hemoglobin (Bld) [Mass/Vol] 15.4 g/dL Normal 13.0-17.0 [facility] Comment on above: Order Comment: Speci men Type: BLOOD SPECIMEN Ordering Facility: [facility] Address: [address] [place] [address] Performed By: #### 5 8410-2 #### [facility] CLIA [id number] [address] [place] [address]64 MCH (RBC) [Entitic mass] 31.3 pg Normal 26.0-34.0 [facility] Comment on above: Order Comment: Speci men Type: BLOOD SPECIMEN Ordering Facility: [facility] Address: [address] [place] [address] Performed By: #### 5 8410-2 #### [facility] CLIA [id number] [address] [place] [address]102 MCHC (RBC) [Mass/Vol] 33.6 g/dL Normal 30.5-36.0 [facility] Comment on above: Order Comment: Speci men Type: BLOOD SPECIMEN Ordering Facility: [facility] Address: [address] [place] [address] Performed By: #### 5 8410-2 #### [facility] CLIA [id number] [address] [place] [address]83 MCV (RBC) [Entitic vol] 93.1 fL Normal 80.0-100.0 [facility] Comment on above: Order Comment: Speci men Type: BLOOD SPECIMEN Ordering Facility: [facility] Address: [address] [place] [address] Performed By: #### 5 8410-2 #### [facility] CLIA [id number] [address] [place] [address]55 Nucleated RBC (Bld) [#/Vol] 10*3/uL Normal <0.01 [facility] Comment on above: Order Comment: Speci men Type: BLOOD SPECIMEN Ordering Facility: [facility] Address: [address] [place] [address] Performed By: #### 5 8410-2 #### [facility] CLIA [id number] [address] [place] [address] Platelet mean volume (Bld) [Entitic vol] 9.0 fL Normal 9.0-12.7 [facility] Comment on above: Order Comment: Speci men Type: BLOOD SPECIMEN Ordering Facility: [facility] Address: [address] [place] [address] Performed By: #### 5 8410-2 #### [facility] CLIA [id number] [address] [place] [address]32[address] Platelets (Bld) [#/Vol] 136 10*3/uL Low 150-400 [facility] Comment on above: Order Comment: Speci men Type: BLOOD SPECIMEN Ordering Facility: [facility] Address: [address] [place] [address] Performed By: #### 5 8410-2 #### [facility] CLIA [id number] [address] [place] [address] 11480 RBC (Bld) [#/Vol] 4.92 10*6/uL Normal 4.20-6.00 [facility] Comment on above: Order Comment: Speci men Type: BLOOD SPECIMEN Ordering Facility: [facility] Address: [address] [place] [address] Performed By: #### 5 8410-2 #### [facility] CLIA [id number] [address] [place] [address]6532 WBC (Bld) [#/Vol] 6.39 10*3/uL Normal 3.70-11.00 [facility] Comment on above: Order Comment: Speci men Type: BLOOD SPECIMEN Ordering Facility: [facility] Address: [address] [place] [address] Performed By: #### 5 8410-2 #### [facility] CLIA [id number] [address] [place] [address] 79176 Comprehensive metabolic 2000 panelon 12-02-2023 Albumin [Mass/Vol] 4.3 g/dL Normal 3.9-4.9 [facility] Comment on above: Order Comment: Speci men Type: BLOOD SPECIMEN Ordering Facility: [facility] Address: [address] [place], [place] [address] Performed By: #### 5 8410-2 #### [facility] CLIA [id number] [address] [place] [address] 48000 ALP [Catalytic activity/Vol] 52 U/L Normal 38-113 [facility] Comment on above: Order Comment: Speci men Type: BLOOD SPECIMEN Ordering Facility: [facility] Address: [address] [place] [address] Performed By: #### 5 8410-2 #### [facility] CLIA [id number] [address] [place] [address] 67781 ALT [Catalytic activity/Vol] 13 U/L Normal 10-54 [facility] Comment on above: Order Comment: Speci men Type: BLOOD SPECIMEN Ordering Facility: [facility] Address: [address] [place] [address] Performed By: #### 5 8410-2 #### [facility] CLIA [id number] [address] [place] [address]278 Anion gap [Moles/Vol] 11 mmol/L Normal 9-18 [facility] Comment on above: Order Comment: Speci men Type: BLOOD SPECIMEN Ordering Facility: [facility] Address: [address] [place] [id number] Performed By: #### 5 8410-2 #### [facility] CLIA [id number] [address] [place] [address] 99491 AST [Catalytic activity/Vol] 18 U/L Normal 14-40 [facility] Comment on above: Order Comment: Speci men Type: BLOOD SPECIMEN Ordering Facility: [facility] Address: [address] [place] [phone] Performed By: #### 5 8410-2 #### [facility] CLIA [id number] [address] [place] [address] Bilirubin [Mass/Vol] 1.8 mg/dL High 0.2-1.3 [facility] Comment on above: Order Comment: Speci men Type: BLOOD SPECIMEN Ordering Facility: [facility] Address: [address] [place] [address] Performed By: #### 5 8410-2 #### [facility] CLIA [id number] [address] [place] [address] 71864 Calcium [Mass/Vol] 10.4 mg/dL High 8.5-10.2 [facility] Comment on above: Order Comment: Speci men Type: BLOOD SPECIMEN Ordering Facility: [facility] Address: [address] [place] [address] Performed By: #### 5 8410-2 #### [facility] CLIA [id number] [address] [place] [address] 33736 Chloride [Moles/Vol] 104 mmol/L Normal 97-105 [facility] Comment on above: Order Comment: Speci men Type: BLOOD SPECIMEN Ordering Facility: [facility] Address: [address] [place] [address] Performed By: #### 5 8410-2 #### [facility] CLIA [id number] [address] [place] [address] 28559 CO2 [Moles/Vol] 24 mmol/L Normal 22-30 [facility] Comment on above: Order Comment: Speci men Type: BLOOD SPECIMEN Ordering Facility: [facility] Address: [address] [place] [address] Performed By: #### 5 8410-2 #### [facility] CLIA [id number] [address] [place] [address]204 Creatinine [Mass/Vol] 1.36 mg/dL High 0.73-1.22 [facility] Comment on above: Order Comment: Anitra echeverria Type: BLOOD SPECIMEN Ordering Facility: [facility] Address: [address] [place], [place] [address] Performed By: #### 5 8410-2 #### [facility] CLIA [id number] [address] [place] [address] 04302 Creatinine and Glomerular filtration rate.predicted panel (S/P/Bld) 57 mL/min/1.73m??? Low >=60 [facility] Comment on above: Order Comment: Anitra echeverria Type: BLOOD SPECIMEN Ordering Facility: [facility] Address: [address] [place], [place] [address] Result Comment: Katalina mated Glomerular Filtration Rate [...] accurately reflect actual GFR. Performed By: #### 5 8410-2 #### [facility] CLIA [id number] [address] [place] [address]64 Glucose [Mass/Vol] 110 mg/dL High 74-99 [facility] Comment on above: Order Comment: Anitra echeverria Type: BLOOD SPECIMEN Ordering Facility: [facility] Address: [address] [place] [place] [address] Result Comment: The [place] Diabetes [employer] (ADA) provides guidance for cutoff [...] Standards of Medical Care in Diabetes 2016, [place] [employer]. Diabetes Care. 2016.39(Suppl 1). Performed By: #### 5 8410-2 #### [facility] CLIA [id number] [address] [place] [address] Potassium [Moles/Vol] 4.3 mmol/L Normal 3.7-5.1 [facility] Comment on above: Order Comment: Speci men Type: BLOOD SPECIMEN Ordering Facility: [facility] Address: [address] [place] [address] Performed By: #### 5 8410-2 #### [facility] CLIA [id number] [address] [place] [address] Protein [Mass/Vol] 6.5 g/dL Normal 6.3-8.0 [facility] Comment on above: Order Comment: Speci men Type: BLOOD SPECIMEN Ordering Facility: [facility] Address: [address] [place] [address] Performed By: #### 5 8410-2 #### [facility] CLIA [id number] [address] [place] [address] Sodium [Moles/Vol] 139 mmol/L Normal 136-144 [facility] Comment on above: Order Comment: Speci men Type: BLOOD SPECIMEN Ordering Facility: [facility] Address: [address] [place], [place] [address] Performed By: #### 5 8410-2 #### [facility] CLIA [id number] [address] [place] [address]474 Urea nitrogen [Mass/Vol] 15 mg/dL Normal 9-24 [facility] Comment on above: Order Comment: Speci men Type: BLOOD SPECIMEN Ordering Facility: [facility] Address: [facility] [place] [address] Performed By: #### 5 8410-2 #### [facility] CLIA [id number] [address] [place] [address] Lipid 1996 panelon 4 Cholesterol [Mass/Vol] 166 mg/dL Normal <200 [facility] Comment on above: Order Comment: Speci men Type: BLOOD SPECIMENOrdering Facility: [facility] Address: [address] [place] [address] Result Comment: <200 mg/dL, Desirable 200-239 mg/dL, Borderline high >239 mg/dL, High Performed By: #### 2 4331-1 ####[facility] [id number] [address] LABCLIA [id number] [place] [address] Cholesterol in HDL [Mass/Vol] 37 mg/dL Low >39 [facility] Comment on above: Order Comment: Speci men Type: BLOOD SPECIMENOrdering Facility: [facility] Address: [address] [place] [address] Result Comment: 40-5 9 mg/dL, Acceptable >59 mg/dL, High: Negative risk factor for coronary heart disease <40 mg/dL, Low: Positive risk factor for coronary heart disease Performed By: #### 2 4331-1 ####[facility] [id number] [address] LABCLIA [id number] [place] [address] Cholesterol in LDL [Mass/Vol] 105 mg/dL High <100 [facility] Comment on above: Order Comment: Speci men Type: BLOOD SPECIMENOrdering Facility: [facility] Address: [address] [place] [address] Result Comment: <100 mg/dL, Optimal 100-129 mg/dL, Near optimal/above optimal 130-159 mg/dL, Borderline high 160-189 mg/dL, High >189 mg/dL, Very high Secondary prevention optimal LDL Cholesterol levels are recommended to be < 70 mg/dL Performed By: #### 2 4331-1 ####[facility] [id number] [address] LABCLIA [id number] [place] [address] Cholesterol in LDL/Cholesterol in HDL [Mass ratio] 2.84 {ratio} High <2.54 [facility] Comment on above: Order Comment: Anitra echeverria Type: BLOOD SPECIMENOrdering Facility: [facility] Address: [address] [place] [address] Result Comment: Refe snow: 1. National Cholesterol Education Program ATP III Guideline At-A-Glance Quick Desk Reference: National Heart, Lung, and Blood [place]. National Institutes of Health. 2001: NIH Publication No. 01-3305. 2. An International Atherosclerosis Society position paper: global recommendations for the management of dyslipidemia: executive summary, Atherosclerosis. 2014: 232(2):410-413. Performed By: #### 2 4331-1 ####[facility] [id number] [address] LABCLIA [id number] [place] [address] Cholesterol in VLDL [Mass/Vol] 24 mg/dL Normal <30 [facility] Comment on above: Order Comment: Anitra echeverria Type: BLOOD SPECIMENOrdering Facility: [facility] Address: [address] [place] [address] Performed By: #### 2 4331-1 ####[facility] [id number] [address] LABCLIA [id number] [place] [address] Cholesterol non HDL [Mass/Vol] 129 mg/dL Normal <130 [facility] Comment on above: Order Comment: Anitra echeverria Type: BLOOD SPECIMENOrdering Facility: [facility] Address: [address] [place] [address] Result Comment: <130 mg/dL, Optimal 130-159 mg/dL, Near optimal/above optimal 160-189 mg/dL, Borderline high 190-219 mg/dL, High >219 mg/dL, Very high Secondary prevention optimal non HDL Cholesterol levels are recommended to be <100 mg/dL Performed By: #### 2 4331-1 ####[facility] [id number] [address] [address] [facility] LABCLIA [id number] [place] [address] Cholesterol.total/C holesterol in HDL [Mass ratio] 4.49 {ratio} Normal <5.10 [facility] Comment on above: Order Comment: Speci men Type: BLOOD SPECIMENOrdering Facility: [facility] Address: [address] [place], [place] [address] Performed By: #### 2 4331-1 ####[facility] [id number] [address] LABCLIA [id number] [place] [address] FASTING TIME 12 hrs Normal [facility] Comment on above: Order Comment: Speci men Type: BLOOD SPECIMENOrdering Facility: [facility] Address: [address] [place], [place] [address] Performed By: #### 2 4331-1 ####[facility]IA [id number] [address] LABCLIA [id number] [place] [address] Triglyceride [Mass/Vol] 122 mg/dL Normal <150 [facility] Comment on above: Order Comment: Speci men Type: BLOOD SPECIMENOrdering Facility: [facility] Address: [address] [place] [address] Result Comment: <150 mg/dL, Normal 150-199 mg/dL, Borderline high 200-499 mg/dL, High >499 mg/dL, Very high Performed By: #### 2 4331-1 ####[facility]CLIA [id number] [address] [address] [facility] LABCLIA [id number] [place] [address] Magnesium SerPl-mCncon 12-01 Magnesium [Mass/Vol] 1.6 mg/dL Low 1.7-2.3 [facility] Comment on above: Order Comment: Anitra echeverria Type: BLOOD SPECIMEN Ordering Facility: [facility] Address: [address] [place] [address] Performed By: #### 5 8410-2 #### [facility] CLIA [id number] [address] [place] [address] Phosphate SerPl-mCncon 12-01 Phosphate [Mass/Vol] 2.8 mg/dL Normal 2.7-4.8 [facility] Comment on above: Order Comment: Speci jacki Type: BLOOD SPECIMENOrdering Facility: [facility] Address: [address] [place] [address] Performed By: #### 1 9123-9, 2777-1, 73750-8 ####[facility] [id number] [place] [address] Tacrolimus Bld-mCncon 2023 Tacrolimus (Bld) [Mass/Vol] 6.1 ng/mL Normal 5.0-20.0 [facility] Comment on above: Order Comment: Anitra echeverria Type: BLOOD SPECIMENOrdering Facility: [facility] Address: [address] [place] [address] Result Comment: Olivia vidualized target levels for [...] situation. Test performed by chemiluminescent immunoassay using [employer] Alinity i. Performed By: #### 1 1253-2 ####[facility] [id number] [address] CNOVon 11-10-2023 CNOV Office Visit (CARDLO ) LINK ROSEN ([id number]) 1955 M Date Time Provider Department 11/10/23 9:30 AM EMANUEL SCOTT During your visit today, we recorded the following information about you: Pulse Blood pressure Weight 84/minute 130/80 173.6 kg Emanuel Scott MD 11/10/2023 12:49 PM Signed [facility] CARDIOLOGY OUTPATIENT VISIT DATE November 10, 2023 OUTPATIENT VISIT TYPE Established PRIMARY CARE PHYSICIAN: Kathleen Sams [address] [place] [address] REFERRING PHYSICIAN: Usman Lowry [address] [facility] [address] C/C: Follow-up for atrial fibrillation Last and initial visit with [place] September 2023 HISTORY OF PRESENT ILLNESS: Mr. Rosen is a 68 year old male, seen in clinic today for follow-up for atrial fibrillation His last and initial visit with [place], noted to be in atrial fibrillation of unknown duration. That was his first diagnosis. Status post DCCV November 05, 2023. Echocardiogram October 31, 2023-LVEF mildly decreased at 45%, RV normal size and function, dilated aorta at 4.9 cm. Today, He denies any new symptoms. It appears that he is back into atrial fibrillation, but denies any specific limitations Denies any bleeding complications. He does all house work, does leg exercises on floor/bed. Denies any significant symptoms, except occasional palpitations. Denies any upcoming procedures, denies any bleeding complications. Otherwise he denies any recurrent chest pain, shortness of breath, leg swelling and symptoms consistent with orthopnea and/or PND. Denies any symptoms consistent with claudication. 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 Never smoker. REVIEW OF SYSTEMS: 10 systems reviewed and are negative with the exception of pertinent positives described in HPI PHYSICAL EXAMINATION: BP 130/80 Pulse 84 Wt (!) 173.6 kg (382 lb 11.5 oz) BMI 38.26 kg/m? General: No acute distress, appears comfortable HEENT: no bruits, no JVD Pulmonary/chest: CTA b/L. No chest wall tenderness/venous engorgments CVS: Irregularly irregular rhythm, normal rate. No murmurs/rubs or gallops. No JVD, no lower extremity edema. Central and peripheral pulses 2+ B/L, no carotid or abdominal bruits. Abdomen: Soft, non-tender, non-distended. Bowel sounds normal Extremities: No peripheral edema/varicosities Skin: No rashes/ulcers, warm and pink Neuro: AAOx4 Psych: Normal mood and affect CARDIOVASCULAR MEDICINE TESTING: I have personally reviewed EKG: Atrial fibrillation, 84 bpm, LAFB, possible anterolateral infarct, age indeterminant. PAST MEDICAL HISTORY Diagnosis Date Coronary atherosclerosis of unspecified type of vessel, seminole or graft Mild 3-vessel Coronary artery disease Hypertension Polycystic kidney, unspecified type 1993 S/p cadaver renal transplant Umbilical hernia PAST SURGICAL HISTORY Procedure Laterality Date LAPAROSCOPY REPAIR INCISIONAL HERNIA REDUCIBLE 2001 umbilical PAST SURGICAL HISTORY OF 07/27/07 Colon Polypectomy- Tubular Adenoma PAST SURGICAL HISTORY OF 10/17 Placement of Left UE AVF x 2 TONSILLECTOMY PRIMARY/SECONDARY Tonsillectomy SOCIAL HISTORY Social History Tobacco Use Smoking status: Never Smokeless tobacco: Never Substance Use Topics Alcohol use: No Comment: no alcohol > 2 yrs, no previous hx of abuse Drug use: No FAMILY HISTORY Problem Relation Age of Onset other (Polycystic Kidney [Other]) Mother other (Polycystic Kidney [Other]) Brother other (CVA [Other]) Father Emphysema Father ALLERGIES: ALLERGIES No Known Allergies CURRENT MEDICATIONS: metoprolol tartrate, short acting, (LOPRESSOR) 25 mg tablet Take 1 tablet by mouth two times a day. rivaroxaban (XARELTO) 20 mg tablet Take 1 tablet by mouth daily with dinner. tacrolimus IR (PROGRAF) 1 mg capsule Take(1) capsule by mouth twice daily mycophenolate mofetil (CELLCEPT) 250 mg capsule take 2 capsules by mouth twice a day predniSONE (DELTASONE) 5 mg tablet take 1 tablet by mouth once daily sulfamethoxazole-trimethopr im (BACTRIM) 400-80 mg per tablet take 1 tablet by mouth once daily gabapentin (NEURONTIN) 300 mg capsule Take 300 mg by mouth twice daily. CALCIUM CARBONATE/VITAMIN D3 (CALCIUM + D ORAL) Take one(1) tablet two(2) times daily. ASPIRIN 81 MG CHEWABLE TAB 1 Tab ORAL DAILY (Patient not taking: Reported on 11/10/2023) IMPRESSION/PLAN AND RECOMMENDATIONS: Persistent atrial fibrillation, was diagnosed in Jun 2023. Status post DCCV November 05, 2023, with recurrence of atrial fibrillation post DCCV. Regular rate is controlled. overall no specific symptoms except occasional palpitations. Echocardiogram did show mild decline in LVEF at around 45% [id number] score of 2, (more content not included)... Normal [facility] ECG COMPLETEon 11-10-2023 ECG COMPLETE Ventricular Rate : 8 4 BPM QRS Duration : 118 ms Q-T Interval : 358 ms QTC Calculation(Bazett) : 423 ms Calculated R Fraziers Bottom : -78 degrees Calculated T Fraziers Bottom : 21 degrees ATRIAL FIBRILLATION LEFT ANTERIOR FASCICULAR BLOCK ABNORMAL ECG Confirmed by KARLA YU MD ([id number]) on 11/11/2023 6:34:13 AM NAME : LINK ROSEN PID : [id number] : 1955 Gender : Male Race : ORD : [id number] Procedure Date : Nov 10 2023 09:21:13 Edit Date : Nov 11 2023 06:34:20 Diagnosis: ATRIAL FIBRILLATION LEFT ANTERIOR FASCICULAR BLOCK ABNORMAL ECG Confirmed by KARLA YU MD ([id number]) on 11/11/2023 6:34:13 AM Test Reason : I48.91 Atrial fibrillation, unspecified type ([facility]) Location : 145 : [place]ARD Overread By : KARLA YU MD Edited By : KARLA YU MD Referred By : Tyler Acquired by : Yury quick [facility] CBC panel Auto (Bld)on 11-03 Erythrocyte distribution width (RBC) [Ratio] 13.2 % Normal 11.5-15.0 [facility] Comment on above: Order Comment: Speci men Type: BLOOD SPECIMENOrdering Facility: [facility] Address: [address] [id number] Performed By: #### 5 8410-2 ####[facility] LABCLIA [id number] [place] [address] Hematocrit (Bld) [Volume fraction] 43.8 % Normal 39.0-51.0 [facility] Comment on above: Order Comment: Speci men Type: BLOOD SPECIMENOrdering Facility: [facility] Address: [address] [place] [address] Performed By: #### 5 8410-2 ####[facility] LABCLIA [id number] [place] [address] Hemoglobin (Bld) [Mass/Vol] 14.9 g/dL Normal 13.0-17.0 [facility] Comment on above: Order Comment: Speci men Type: BLOOD SPECIMENOrdering Facility: [facility] Address: [address] [place] [address] Performed By: #### 5 8410-2 ####[facility] LABCLIA [id number] [place] [address] MCH (RBC) [Entitic mass] 31.6 pg Normal 26.0-34.0 [facility] Comment on above: Order Comment: Speci men Type: BLOOD SPECIMENOrdering Facility: [facility] Address: [address] [place] [address] Performed By: #### 5 8410-2 ####[facility] LABCLIA [id number] [place] [address] MCHC (RBC) [Mass/Vol] 34.0 g/dL Normal 30.5-36.0 [facility] Comment on above: Order Comment: Speci men Type: BLOOD SPECIMENOrdering Facility: [facility] Address: [address] [place] [address] Performed By: #### 5 8410-2 ####[facility] LABCLIA [id number] [place] [address] MCV (RBC) [Entitic vol] 93.0 fL Normal 80.0-100.0 [facility] Comment on above: Order Comment: Speci men Type: BLOOD SPECIMENOrdering Facility: [facility] Address: [address] [place] [address] Performed By: #### 5 8410-2 ####[facility] LABCLIA [id number] [place] [address] Nucleated RBC (Bld) [#/Vol] 10*3/uL Normal <0.01 [facility] Comment on above: Order Comment: Speci men Type: BLOOD SPECIMENOrdering Facility: [facility] Address: [address] [place] [address] Performed By: #### 5 8410-2 ####[facility] LABCLIA [id number] [place] [address] Platelet mean volume (Bld) [Entitic vol] 9.1 fL Normal 9.0-12.7 [facility] Comment on above: Order Comment: Speci men Type: BLOOD SPECIMENOrdering Facility: [facility] Address: [address] [place] [address] Performed By: #### 5 8410-2 ####[facility] LABIA [id number] [place] [address] Platelets (Bld) [#/Vol] 141 10*3/uL Low 150-400 [facility] Comment on above: Order Comment: Speci men Type: BLOOD SPECIMENOrdering Facility: [facility] Address: [address] [place] [address] Performed By: #### 5 8410-2 ####[facility] LABIA [id number] [place] [address] RBC (Bld) [#/Vol] 4.71 10*6/uL Normal 4.20-6.00 [facility] Comment on above: Order Comment: Speci men Type: BLOOD SPECIMENOrdering Facility: [facility] Address: [address] [place] [address] Performed By: #### 5 8410-2 ####[facility] LABCLIA [id number] [place] [address] WBC (Bld) [#/Vol] 6.64 10*3/uL Normal 3.70-11.00 [facility] Comment on above: Order Comment: Speci men Type: BLOOD SPECIMENOrdering Facility: [facility] Address: [address] [place] [address] Performed By: #### 5 8410-2 ####[facility] LABCLIA [id number] [place] [address] Comprehensive metabolic 2000 panelon 11-03-2023 Albumin [Mass/Vol] 3.9 g/dL Normal 3.9-4.9 [facility] Comment on above: Order Comment: Speci men Type: BLOOD SPECIMENOrdering Facility: [facility] Address: [address] [place] [address] Performed By: #### 2 4323-8 ####[facility] LABCLIA [id number] [place] [address] [place] ALP [Catalytic activity/Vol] 46 U/L Normal 38-113 [facility] Comment on above: Order Comment: Speci men Type: BLOOD SPECIMENOrdering Facility: [facility] Address: [address] [place] [address] Performed By: #### 2 4323-8 ####[facility] LABCLIA [id number] [place] [address] [place] ALT [Catalytic activity/Vol] 18 U/L Normal 10-54 [facility] Comment on above: Order Comment: Speci men Type: BLOOD SPECIMENOrdering Facility: [facility] Address: [address] [place] [address] Performed By: #### 2 4323-8 ####[facility] LABCLIA [id number] [place] [address] [place] Anion gap [Moles/Vol] 13 mmol/L Normal 9-18 [facility] Comment on above: Order Comment: Speci men Type: BLOOD SPECIMENOrdering Facility: [facility] Address: [address] [phone] Performed By: #### 2 4323-8 ####[facility] LABCLIA [id number] [place] [id number] [place] AST [Catalytic activity/Vol] 24 U/L Normal 14-40 [facility] Comment on above: Order Comment: Speci men Type: BLOOD SPECIMENOrdering Facility: [facility] Address: [address] [place] [address] Performed By: #### 2 4323-8 ####[facility] LABCLIA [id number] [place] [address] [place] Bilirubin [Mass/Vol] 0.8 mg/dL Normal 0.2-1.3 [facility] Comment on above: Order Comment: Speci men Type: BLOOD SPECIMENOrdering Facility: [facility] Address: [address] [place], [place] [phone] Performed By: #### 2 4323-8 ####[facility] LABCLIA [id number] [place] [address] [place] Calcium [Mass/Vol] 9.9 mg/dL Normal 8.5-10.2 [facility] Comment on above: Order Comment: Speci men Type: BLOOD SPECIMENOrdering Facility: [facility] Address: [address] [phone] Performed By: #### 2 4323-8 ####[facility] LABCLIA [id number] [place] [address] [place] Chloride [Moles/Vol] 104 mmol/L Normal 97-105 [facility] Comment on above: Order Comment: Speci men Type: BLOOD SPECIMENOrdering Facility: [facility] Address: [address] [place] [address] Performed By: #### 2 4323-8 ####[facility] LABCLIA [id number] [place] [address] [place] CO2 [Moles/Vol] 23 mmol/L Normal 22-30 [facility] Comment on above: Order Comment: Speci men Type: BLOOD SPECIMENOrdering Facility: [facility] Address: [address] [place] [address] Performed By: #### 2 4323-8 ####[facility] LABCLIA [id number] [place] [address] [place] Creatinine [Mass/Vol] 1.28 mg/dL High 0.73-1.22 [facility] Comment on above: Order Comment: Speci men Type: BLOOD SPECIMENOrdering Facility: [facility] Address: [address] [place] [address] Performed By: #### 2 4323-8 ####[facility] LABIA [id number] [place] [address] [place] Creatinine and Glomerular filtration rate.predicted panel (S/P/Bld) 62 mL/min/1.73m??? Normal >=60 [facility] Comment on above: Order Comment: Speci men Type: BLOOD SPECIMENOrdering Facility: [facility] Address: [address] [place] [address] Result Comment: Katalina mated Glomerular Filtration Rate [...] reflect actual GFR. Performed By: #### 2 4323-8 ####[facility] LABCLIA [id number] [place] [address] [place] Glucose [Mass/Vol] 128 mg/dL High 74-99 [facility] Comment on above: Order Comment: Speci men Type: BLOOD SPECIMENOrdering Facility: [facility] Address: [address] [place], [place] [phone] Result Comment: The [place] [employer] (ADA) provides guidance for cutoff [...] Standards of Medical Care in Diabetes 2016, [place] [employer]. Diabetes Care. 2016.39(Suppl 1). Performed By: #### 2 4323-8 ####[facility] LABCLIA [id number] [place] [address] [place] Potassium [Moles/Vol] 4.7 mmol/L Normal 3.7-5.1 [facility] Comment on above: Order Comment: Speci men Type: BLOOD SPECIMENOrdering Facility: [facility] Address: [address] [place], [place] [address] Performed By: #### 2 4323-8 ####[facility] LABCLIA [id number] [place] [address] [place] Protein [Mass/Vol] 6.1 g/dL Low 6.3-8.0 [facility] Comment on above: Order Comment: Speci men Type: BLOOD SPECIMENOrdering Facility: [facility] Address: [address] [place] [address] Performed By: #### 2 4323-8 ####[facility] LABCLIA [id number] [place] [address] [place] Sodium [Moles/Vol] 140 mmol/L Normal 136-144 [facility] Comment on above: Order Comment: Speci men Type: BLOOD SPECIMENOrdering Facility: [facility] Address: [address] [place] [address] Performed By: #### 2 4323-8 ####[facility] LABIA [id number] [place] [id number] [place] Urea nitrogen [Mass/Vol] 13 mg/dL Normal 9-24 [facility] Comment on above: Order Comment: Speci men Type: BLOOD SPECIMENOrdering Facility: [facility] Address: [address] [facility] [address] [address] [place] [id number] Performed By: #### 2 4323-8 ####[facility] LABIA [id number] [place] [id number] [place] ECHOon 10-31-2023 Echocardiography Echocardiography Rep ort: Transthoracic Echo [facility] Date of service: 10/31/2023 10:23:27 AM 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 LINK ROSEN : 1955 Age: 68 years Gender: M History of hypertension, chronic kidney disease, dyslipidemia and arrhythmia. Primary rhythm: atrial fib. Height: 213.40 cm BSA: 3.19 m Weight: 171.40 kg BMI: 37.6 kg/m Heart rate 114 bpm Technically difficult exam due to body habitus and suboptimal positioning. Color Doppler was utilized to interrogate the cardiac valves assessed and spectral Doppler was utilized to determine the flow velocities and pressure gradients reported in this exam. MEASUREMENTS: Value Indexed Normal Max aortic dimension 4.9 cm Ao < 3.8 Left atrial volume 114 ml (4ch A-L) 36 ml/m Kiesha <= 34 LV ID (diastole) 6.2 cm (2D) 1.96 cm/m LV ID (systole) 4.4 cm (2D) 1.38 cm/m IVS, leaflet tips 1.2 cm (2D) Posterior wall thickness 0.9 cm (2D) Left ventricular mass 280 g (2D) 88 g/m Ejection Fraction 45 % (visual est.) EF > 52 FINDINGS: LEFT VENTRICLE The left ventricle is normal in size. Left ventricular systolic function is mildly decreased globally. Left ventricular diastolic function was not evaluated due to AF. Definity contrast used for endocardial border detection. Wall Motion: The entire anterior wall, entire lateral wall, entire septum, entire apex, and entire inferior wall are mildly hypokinetic. RIGHT VENTRICLE The right ventricle is normal in size. Right ventricular systolic function is normal globally. RV systolic tissue Doppler velocity is 10.2 cm/s. Tricuspid annular displacement is 2.2 cm. Estimated right ventricular systolic pressure is likely underestimated due to a weak or incomplete tricuspid regurgitation signal and is, at least, 13 mmHg plus right atrial pressure. Estimated right atrial pressure is not included as the IVC was not seen. LEFT ATRIUM The left atrial cavity is mildly dilated. RIGHT ATRIUM The right atrial cavity is normal in size. MITRAL VALVE There is trace mitral valve regurgitation. There is mild thickening. TRICUSPID VALVE There is trace (trace - 1+) tricuspid valve regurgitation. There is no thickening. The hepatic venous pattern showed blunted systolic flow. AORTIC VALVE There is no aortic valve regurgitation. Tricuspid aortic valve. There is no thickening. The LVOT diameter is 2.8 cm. PULMONIC VALVE There is trace pulmonic valve regurgitation. There is no thickening. AORTA The visualized aorta is dilated. Measurements - Aortic valve annulus 2.2 cm. Sinus: 4.4 cm. Sinotubular junction 3.8 cm. Mid ascending aorta 4.9 cm. Distal ascending aorta 3.9 cm. Mid arch 3.3 cm. PULMONARY ARTERIES The pulmonary arteries are unseen or not interrogated. INTERATRIAL SEPTUM There is no evidence of intracardiac shunting as detected by Doppler. INTERVENTRICULAR SEPTUM There is no flow through the interventricular septum as detected by Doppler. PERICARDIUM There is no pericardial effusion. There is an epicardial fat pad. CONCLUSIONS: - Technically difficult exam due to body habitus and suboptimal positioning. - Exam indication: Pre-op Cardioversion - The left ventricle is normal in size. Left ventricular systolic function is mildly decreased. EF = 45 5% (visual est.) Definity contrast used for endocardial border detection. Left ventricular diastolic function was not evaluated due to AF. - The right ventricle is normal in size. Right ventricular systolic function is normal. - The left atrial cavity is mildly dilated. - The visualized aorta is dilated with a maximal dimension of 4.9 cm. -Difficult exam due to frequent patient movement due to back spasms. -Difficult definity imaging. - The patient has not had a prior CC echocardiographic exam for comparison. * * * Final * * * [facility] : [id number] [employer] Normal [facility] CNOVon 09-30-2023 CNOV Office Visit (CARDLO ) LINK ROSEN ([id number]) 1955 M Date Time Provider Department 09/30/23 8:00 AM EMANUEL SCOTT During your visit today, we recorded the following information about you: Pulse Blood pressure Weight 113/minute 116/72 171.4 kg Emanuel Scott MD 09/30/2023 8:47 AM Signed [facility]Y OUTPATIENT VISIT DATE September 30, 2023 OUTPATIENT VISIT TYPE NEW PRIMARY CARE PHYSICIAN: Kathleen Sams [address] [place] [address] REFERRING PHYSICIAN: Usman Lowry [address] [place] [id number] Patient is being seen at the request of the referring HAIR MIXER for A-Fib My final recommendations will be communicated back to the requesting physician by way of the shared medical record. HISTORY OF PRESENT ILLNESS: Mr. Rosen is a 68 year old male, seen in clinic today for A-Fib noted for irregularity noted during physical exam and confirmed by EKG on Jun 2024. Not started on any medications. He does all house work, does leg exercises on floor/bed. Denies any significant symptoms, except occasional palpitations. Denies any upcoming procedures, denies any bleeding complications. Otherwise he denies any recurrent chest pain, shortness of breath, leg swelling and symptoms consistent with orthopnea and/or PND. Denies any symptoms consistent with claudication. 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 Never smoker. REVIEW OF SYSTEMS: 10 systems reviewed and are negative with the exception of pertinent positives described in HPI PHYSICAL EXAMINATION: BP 116/72 Pulse 113 Wt (!) 171.4 kg (377 lb 13.9 oz) BMI 37.65 kg/m? General: No acute distress, appears comfortable HEENT: no bruits, no JVD Pulmonary/chest: CTA b/L. No chest wall tenderness/venous engorgments CVS: Normal S1 and S2, Regular rhythm, normal rate. No murmurs/rubs or gallops. No JVD, no lower extremity edema. Central and peripheral pulses 2+ B/L, no carotid or abdominal bruits. Abdomen: Soft, non-tender, non-distended. Bowel sounds normal Extremities: No peripheral edema/varicosities Skin: No rashes/ulcers, warm and pink Neuro: AAOx4 Psych: Normal mood and affect CARDIOVASCULAR MEDICINE TESTING: I have personally reviewed EKG: Atrial fibrillation, ventricular rate 113 bpm. PAST MEDICAL HISTORY Diagnosis Date Coronary atherosclerosis of unspecified type of vessel, seminole or graft Mild 3-vessel Coronary artery disease Hypertension Polycystic kidney, unspecified type 1993 S/p cadaver renal transplant Umbilical hernia PAST SURGICAL HISTORY Procedure Laterality Date LAPAROSCOPY REPAIR INCISIONAL HERNIA REDUCIBLE 2001 umbilical PAST SURGICAL HISTORY OF 07/27/07 Colon Polypectomy- Tubular Adenoma PAST SURGICAL HISTORY OF 10/17 Placement of Left UE AVF x 2 TONSILLECTOMY PRIMARY/SECONDARY Tonsillectomy SOCIAL HISTORY Social History Tobacco Use Smoking status: Never Smokeless tobacco: Never Substance Use Topics Alcohol use: No Comment: no alcohol > 2 yrs, no previous hx of abuse Drug use: No FAMILY HISTORY Problem Relation Age of Onset other (Polycystic Kidney [Other]) Mother other (Polycystic Kidney [Other]) Brother other (CVA [Other]) Father Emphysema Father ALLERGIES: ALLERGIES No Known Allergies CURRENT MEDICATIONS: tacrolimus IR (PROGRAF) 1 mg capsule Take(1) capsule by mouth twice daily mycophenolate mofetil (CELLCEPT) 250 mg capsule take 2 capsules by mouth twice a day predniSONE (DELTASONE) 5 mg tablet take 1 tablet by mouth once daily sulfamethoxazole-trimethopr im (BACTRIM) 400-80 mg per tablet take 1 tablet by mouth once daily gabapentin (NEURONTIN) 300 mg capsule Take 300 mg by mouth twice daily. CALCIUM CARBONATE/VITAMIN D3 (CALCIUM + D ORAL) Take one(1) tablet two(2) times daily. ASPIRIN 81 MG CHEWABLE TAB 1 Tab ORAL DAILY IMPRESSION/PLAN AND RECOMMENDATIONS: New diagnosis of atrial fibrillation in Jun 2023. Sustained since then, unknown duration. Overall no specific symptoms except occasional palpitations. Ventricular rates are elevated today at 113 bpm. [id number] score of 2, primarily with history of hypertension and age. Intermediate risk of thromboembolism. We discussed new diagnosis of atrial fibrillation, different treatment approaches to A-fib. Start metoprolol tartrate 25 mg twice daily for rate control Discussed indication for anticoagulation. Start Xarelto 20 mg daily, stop aspirin. 30 free trial coupon for Xarelto provided to patient. If Xarelto is expensive, we may need to change him to warfarin and have him follow-up at local clinic at [place] for INR monitoring. If he goes on a DOAC, we will arrange for cardioversion in 4 weeks from starting anticoagulati (more content not included)... Normal [facility] Abel 09-30-2023 SEANN Telephone (CARDLO) LINK ROSEN ([id number]) 1955 M Date Time Provider Department 09/30/23 EMANUEL SCOTT During your visit today, we recorded the following information about you: Ana Christianson 09/30/2023 8:49 AM Signed Patient needs scheduled for cardioversion first week of November, after Echo with labs prior. The best number to contact the patient is [phone]. Okay to leave a message. MyChart instructions okay. Karlene Nguyen 09/30/2023 10:16 AM Signed Called and left message for patient to call me back to schedule his cardioversion at [facility] for November [address] Lei. Allergies As of Date: 09/30/2023 (No Known Allergies) Date Reviewed: 09/30/2023 Reviewed by: Amanda Ramirez MA - Fully Assessed Reason for Visit: Procedure [88] Cmt: Cardioversion Prescriptions as of 09/30/2023 - metoprolol tartrate, short acting, (LOPRESSOR) 25 mg tablet Take 1 tablet by mouth two times a day. - rivaroxaban (XARELTO) 20 mg tablet Take 1 tablet by mouth daily with dinner. - tacrolimus IR (PROGRAF) 1 mg capsule Take(1) capsule by mouth twice daily - mycophenolate mofetil (CELLCEPT) 250 mg capsule take 2 capsules by mouth twice a day - predniSONE (DELTASONE) 5 mg tablet take 1 tablet by mouth once daily - sulfamethoxazole-trimethopr im (BACTRIM) 400-80 mg per tablet take 1 tablet by mouth once daily - gabapentin (NEURONTIN) 300 mg capsule Take 300 mg by mouth twice daily. - CALCIUM CARBONATE/VITAMIN D3 (CALCIUM + D ORAL) Take one(1) tablet two(2) times daily. - ASPIRIN 81 MG CHEWABLE TAB 1 Tab ORAL DAILY Facility-Administered Medications as of 09/30/2023 - perflutren lipid microspheres 1.3 mL in NaCl (PF) 0.9% 10 mL injection (DEFINITY) - sodium chloride 0.9 % (flush) 10 mL (BD POSIFLUSH) Meds Comments as of 02/22/2010: Patient states he doesn't always take Pepcid. 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] 05/08/2009 S/p cadaver renal transplant [Z94.0] Umbilical hernia [K42.9] Atrial fibrillation (HCC) [I48.91] 09/30/2023 Encounter Status:Closed by ANA CHRISTIANSON on 09/30/23 Normal [facility] ECG COMPLETEon 09-30-2023 ECG COMPLETE Ventricular Rate : 1 13 BPM QRS Duration : 112 ms Q-T Interval : 336 ms QTC Calculation(Bazett) : 460 ms Calculated R Fraziers Bottom : -74 degrees Calculated T Fraziers Bottom : 63 degrees ATRIAL FIBRILLATION WITH RAPID VENTRICULAR RESPONSE LEFT AXIS DEVIATION ANTEROLATERAL INFARCTION , AGE UNDETERMINED ABNORMAL ECG Confirmed by MALCOLM KEENE MD ([id number]) on 09/30/2023 2:04:29 PM NAME : LINK ROSEN PID : [id number] : 1955 Gender : Male Race : ORD : [id number] Procedure Date : Sep 30 2023 07:57:09 Edit Date : Sep 30 2023 14:04:50 Diagnosis: ATRIAL FIBRILLATION WITH RAPID VENTRICULAR RESPONSE LEFT AXIS DEVIATION ANTEROLATERAL INFARCTION , AGE UNDETERMINED ABNORMAL ECG Confirmed by MALCOLM KEENE MD ([id number]) on 09/30/2023 2:04:29 PM Test Reason : I48.91 Atrial fibrillation by electrocardiogram (HCC) Location : 145 : [facility] Overread By : MALCOLM KEENE MD Edited By : MALCOLM KEENE MD Referred By : USMAN LOWRY Acquired by : ynes, Yury [facility] CBC panel Auto (Bld)on 09-02 Erythrocyte distribution width (RBC) [Ratio] 12.6 % Normal 11.5-15.0 [facility] Comment on above: Order Comment: Speci men Type: BLOOD SPECIMEN [facility]: [facility] Address: [address] [place] [address] Performed By: #### 5 8410-2 #### [facility] CLIA [id number] [address] [place] [address] Hematocrit (Bld) [Volume fraction] 46.8 % Normal 39.0-51.0 [facility] Comment on above: Order Comment: Speci men Type: BLOOD SPECIMEN Ordering Facility: [facility] Address: [address] [place] [address] Performed By: #### 5 8410-2 #### [facility] CLIA [id number] [address] [place] [address] Hemoglobin (Bld) [Mass/Vol] 16.1 g/dL Normal 13.0-17.0 [facility] Comment on above: Order Comment: Speci men Type: BLOOD SPECIMEN Ordering Facility: [facility] Address: [address] [place] [address] Performed By: #### 5 8410-2 #### [facility] CLIA [id number] [address] [place] [address] MCH (RBC) [Entitic mass] 31.5 pg Normal 26.0-34.0 [facility] Comment on above: Order Comment: Speci men Type: BLOOD SPECIMEN Ordering Facility: [facility] Address: [address] [place] [address] Performed By: #### 5 8410-2 #### [facility] CLIA [id number] [address] [place] [address]01 MCHC (RBC) [Mass/Vol] 34.4 g/dL Normal 30.5-36.0 [facility] Comment on above: Order Comment: Speci men Type: BLOOD SPECIMEN Ordering Facility: [facility] Address: [address] [place] [address] Performed By: #### 5 8410-2 #### [facility] CLIA [id number] [address] [place] [address] 87629 MCV (RBC) [Entitic vol] 91.6 fL Normal 80.0-100.0 [facility] Comment on above: Order Comment: Speci men Type: BLOOD SPECIMEN Ordering Facility: [facility] Address: [address] [place] [address] Performed By: #### 5 8410-2 #### [facility] CLIA [id number] [address] [place] [address] 32581 Nucleated RBC (Bld) [#/Vol] 10*3/uL Normal <0.01 [facility] Comment on above: Order Comment: Speci men Type: BLOOD SPECIMEN Ordering Facility: [facility] Address: [address] [place] [address] Performed By: #### 5 8410-2 #### [facility] CLIA [id number] [address] [place] [address] Platelet mean volume (Bld) [Entitic vol] 9.0 fL Normal 9.0-12.7 [facility] Comment on above: Order Comment: Speci men Type: BLOOD SPECIMEN Ordering Facility: [facility] Address: [address] [place] [address] Performed By: #### 5 8410-2 #### [facility] CLIA [id number] [address] [place] [address] 30432 Platelets (Bld) [#/Vol] 144 10*3/uL Low 150-400 [facility] Comment on above: Order Comment: Speci men Type: BLOOD SPECIMEN Ordering Facility: [facility] Address: [address] [place] [address] Performed By: #### 5 8410-2 #### [facility] CLIA [id number] [address] [place] [address] 71131 RBC (Bld) [#/Vol] 5.11 10*6/uL Normal 4.20-6.00 [facility] Comment on above: Order Comment: Speci men Type: BLOOD SPECIMEN Ordering Facility: [facility] Address: [address] [place] [address] Performed By: #### 5 8410-2 #### [facility] CLIA [id number] [address] [place] [address] 44521 WBC (Bld) [#/Vol] 6.35 10*3/uL Normal 3.70-11.00 [facility] Comment on above: Order Comment: Speci men Type: BLOOD SPECIMEN Ordering Facility: [facility] Address: [address] [place] [address] Performed By: #### 5 8410-2 #### [facility] CLIA [id number] [address] [place] [address] 26535 Comprehensive metabolic 2000 panelon 09-02-2023 Albumin [Mass/Vol] 4.3 g/dL Normal 3.9-4.9 [facility] Comment on above: Order Comment: Speci men Type: BLOOD SPECIMENOrdering Facility: [facility] Address: [address] [place] [address] Performed By: #### 2 4323-8, , 2776-09 ####[facility] [id number] [place] [address] ALP [Catalytic activity/Vol] 59 U/L Normal 38-113 [facility] Comment on above: Order Comment: Speci men Type: BLOOD SPECIMENOrdering Facility: [facility] Address: [address] [place] [phone] Performed By: #### 2 4323-8, , 2776-09 ####[facility] [id number] [place] [address] ALT [Catalytic activity/Vol] 12 U/L Normal 10-54 [facility] Comment on above: Order Comment: Speci men Type: BLOOD SPECIMENOrdering Facility: [facility] Address: [address] [place] [address] Performed By: #### 2 4323-8, , 2776-09 ####[facility] [id number] [place] [address] Anion gap [Moles/Vol] 10 mmol/L Normal 9-18 [facility] Comment on above: Order Comment: Speci men Type: BLOOD SPECIMENOrdering Facility: [facility] Address: [address] [place] [address] Performed By: #### 2 4323-8, , 2776-09 ####[facility] [id number] [place] [address] AST [Catalytic activity/Vol] 18 U/L Normal 14-40 [facility] Comment on above: Order Comment: Speci men Type: BLOOD SPECIMENOrdering Facility: [facility] Address: [address] [place] [phone] Performed By: #### 2 4323-8, , 2776-09 ####[facility] [id number] [place] [address] Bilirubin [Mass/Vol] 1.6 mg/dL High 0.2-1.3 [facility] Comment on above: Order Comment: Speci men Type: BLOOD SPECIMENOrdering Facility: [facility] Address: [address] [place] [address] Performed By: #### 2 4323-8, , 2776-09 ####[facility] [id number] [place] [address] Calcium [Mass/Vol] 10.6 mg/dL High 8.5-10.2 [facility] Comment on above: Order Comment: Speci men Type: BLOOD SPECIMENOrdering Facility: [facility] Address: [address] [place] [address] Performed By: #### 2 4323-8, , 2776-09 ####[facility] [id number] [place] [address] Chloride [Moles/Vol] 106 mmol/L High 97-105 [facility] Comment on above: Order Comment: Speci men Type: BLOOD SPECIMENOrdering Facility: [facility] Address: [address] [place] [address] Performed By: #### 2 4323-8, , 2776-09 ####[facility] [id number] [place] [address] CO2 [Moles/Vol] 27 mmol/L Normal 22-30 [facility] Comment on above: Order Comment: Speci men Type: BLOOD SPECIMENOrdering Facility: [facility] Address: [address] [place] [address] Performed By: #### 2 4323-8, , 2776-09 ####[facility] [id number] [place] [address] Creatinine [Mass/Vol] 1.55 mg/dL High 0.73-1.22 [facility] Comment on above: Order Comment: Anitra echeverria Type: BLOOD SPECIMENOrdering Facility: [facility] Address: [address] [address] Performed By: #### 2 4323-8, , 1 ####[facility] [id number] [place] [address] Creatinine and Glomerular filtration rate.predicted panel (S/P/Bld) 49 mL/min/1.73m??? Low >=60 [facility] Comment on above: Order Comment: Anitra echeverria Type: BLOOD SPECIMENOrdering Facility: [facility] Address: [address] [place] [address] Result Comment: Katalina mated Glomerular Filtration Rate [...] Performed By: #### 2 4323-8, , 2776-09 ####[facility] [id number] [place] [address] Glucose [Mass/Vol] 108 mg/dL High 74-99 [facility] Comment on above: Order Comment: Anitra echeverria Type: BLOOD SPECIMENOrdering Facility: [facility] Address: [address] [place] [address] Result Comment: The [place] [employer] (ADA) provides guidance for cutoff [...] Standards of Medical Care in Diabetes 2016, [place] [employer]. Diabetes Care. 2016.39(Suppl 1). Performed By: #### 2 4323-8, , 2776-09 ####[facility] [id number] [place] [address] Potassium [Moles/Vol] 4.2 mmol/L Normal 3.7-5.1 [facility] Comment on above: Order Comment: Speci men Type: BLOOD SPECIMENOrdering Facility: [facility] Address: [address] [place] [address] Performed By: #### 2 4328, , 2776-09 ####[facility] [id number] [place] [address] Protein [Mass/Vol] 6.4 g/dL Normal 6.3-8.0 [facility] Comment on above: Order Comment: Speci men Type: BLOOD SPECIMENOrdering Facility: [facility] Address: [address] [place] [address] Performed By: #### 2 4328, , 2776-09 ####[facility] [id number] [place] [address] Sodium [Moles/Vol] 143 mmol/L Normal 136-144 [facility] Comment on above: Order Comment: Speci men Type: BLOOD SPECIMENOrdering Facility: [facility] Address: [address] [place] [address] Performed By: #### 2 4323-8, , 2776-09 ####[facility] [id number] [place] [address] Urea nitrogen [Mass/Vol] 17 mg/dL Normal 9-24 [facility] Comment on above: Order Comment: Speci men Type: BLOOD SPECIMENOrdering Facility: [facility] Address: [address] [place] [place] [phone] Performed By: #### 2 4323-8, 64368-9, 2776-09 ####[facility] [id number] [place] [address] Magnesium SerPl-ncon 09-02 Magnesium [Mass/Vol] 1.7 mg/dL Normal 1.7-2.3 [facility] Comment on above: Order Comment: Speci men Type: BLOOD SPECIMENOrdering Facility: [facility] Address: [address] [place] [phone] Performed By: #### 2 4323-8, , 2776-09 ####[facility] [id number] [place] [address] Phosphate SerPl-ncon 09-02 Phosphate [Mass/Vol] 3.2 mg/dL Normal 2.7-4.8 [facility] Comment on above: Order Comment: Anitra echeverria Type: BLOOD SPECIMENOrdering Facility: [facility] Address: [address] [place] [place] [phone] Performed By: #### 2 4323-8, , 2776-09 ####[facility] [id number] [place] [address] Tacrolimus Bld-mCncon 2022 Tacrolimus (Bld) [Mass/Vol] 6.2 ng/mL Normal 5.0-20.0 [facility] Comment on above: Order Comment: Anitra echeverria Type: BLOOD SPECIMEN Ordering Facility: [facility] Address: [address] [phone] Result Comment: Olivia vidualized target levels for [...] situation. Test performed by chemiluminescent immunoassay using [employer] Alinity i. Performed By: #### 5 8410-2 #### [facility] CLIA [id number] [address] [place] [address] [facility] (HEMASA[facility] LINK ROSEN ([id number]) 1955 M Date Time Provider Department 07/01/23 2:00 PM [facility] NURSE MUSA BECKER During your visit today, we recorded the following information about you: Briana Castillo MA 07/01/2023 2:07 PM Signed EKG performed as ordered. Transmitted to [facility] electronically, placed in scanning. Briana Castillo MA Allergies As of Date: 07/01/2023 (No [...] 1 tablet by mouth once daily - sulfamethoxazole-trimethopr im (BACTRIM) 400-80 mg per tablet take 1 [...] Umbilical hernia [K42.9] Visit Notes: >> Briana Castillo MA Tue Jul 01, 2023 2:02 PM Status: Signed EKG performed as ordered. Transmitted to [facility] electronically, placed in scanning. Briana Castillo MA Encounter Status:Closed by BRIANA CASTILLO on 07/01/23 Normal [facility] [id number] 07-01-2023 ECG01 Ventricular Rate : 1 04 BPM Atrial Rate : 104 BPM QRS Duration : 110 ms Q-T Interval : 342 ms QTC Calculation(Bazett) : 449 ms Calculated R Fraziers Bottom : -64 degrees Calculated T Fraziers Bottom : 74 degrees 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 ABNORMAL ECG Confirmed by MD SINCLAIR TAMANNA ([id number]) on 07/03/2023 12:04:37 PM NAME : LINK ROSEN PID : [id number] : 1955 Gender : Male Race : ORD : Procedure Date : Jul 01 2023 14:09:00 Edit Date : Jul 03 2023 12:04:39 Diagnosis: 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 ABNORMAL ECG Confirmed by MD SINCLAIR TAMANNA ([id number]) on 07/03/2023 12:04:37 PM Test Reason : Location : 539 : [facility] Overread By : MD SINCLAIR TAMANNA Edited By : MD SINCLAIR TAMANNA Referred By : USMAN LOWRY APRN.CNP Acquired by : Yury BORJA [facility] CNCOon 06-30-2023 CNCO Letter Text [facility] CNOVon 06-30-2023 CNOV Office Visit (KIDMMN ) LINK ROSEN ([id number]) 1955 M Date Time Provider Department 06/30/23 11:00 AM USMAN LOWRY During your visit today, we recorded the following information about you: Temperature Pulse Blood pressure Weight 97.8 degrees 91/minute 127/80 176.4 kg Height 2.134 m Usman Lowry APRN.POST ACUTE CARE NURSE 06/30/2023 6:11 PM Signed Patient presents for renal tx follow up care The HPI and Assessment was copied from my previous note dated 07/01/2022 with changes as noted Mr. Link Rosen is a 68 year old male who presents for follow up of a dual adult DD kidney transplant. 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 Had ventral hernia repair in February 2013. Baseline scr 1.2-1.4 Brother had renal tx here in Aug 2020 PAST MEDICAL HISTORY Diagnosis Date Coronary atherosclerosis of unspecified type of vessel, seminole or graft Mild 3-vessel Coronary artery disease [...] mg/dL 06 (more content not included)... Normal [facility] URINALYSIS, REFLEX MICROSCOP ICon 06-30-2023 Bilirubin Ql (U) Negative Normal Negative [facility] Comment on above: Order Comment: Speci men Type: BLOOD SPECIMEN Ordering Facility: [facility] Address: [address] [place], [place] [address] [address] Performed By: #### 5 8410-2 #### [facility] CLIA [id number] [address] [place] [address] Clarity (Unsp spec) Clear Normal Clear [facility] Comment on above: Order Comment: Speci men Type: BLOOD SPECIMEN Ordering Facility: [facility] Address: [address] [place] [address] Performed By: #### 5 8410-2 #### [facility] CLIA [id number] [address] [place] [address] Color (U) Yellow Normal Yellow [facility] Comment on above: Order Comment: Speci men Type: BLOOD SPECIMEN Ordering Facility: [facility] Address: [facility] [place] [place] [phone] Performed By: #### 5 8410-2 #### [facility] CLIA [id number] [address] [place] [address]79 Glucose Test strip (U) [Mass/Vol] Negative Normal Trace, Negative [facility] Comment on above: Order Comment: Speci men Type: BLOOD SPECIMEN Ordering Facility: [facility] Address: [address] [place] [address] Performed By: #### 5 8410-2 #### [facility] CLIA [id number] [address] [place] [address] Hemoglobin Ql (U) Negative Normal Negative, Trace [facility] Comment on above: Order Comment: Speci men Type: BLOOD SPECIMEN Ordering Facility: [facility] Address: [address] [place] [place] [phone] Performed By: #### 5 8410-2 #### [facility] CLIA [id number] [address] [place] [address]76 Ketones Ql (U) Negative Normal Negative, Trace [facility] Comment on above: Order Comment: Speci men Type: BLOOD SPECIMEN Ordering Facility: [facility] Address: [address] [place] [address] Performed By: #### 5 8410-2 #### [facility] CLIA [id number] [address] [place] [address]654 Leukocyte esterase Test strip Ql (U) Negative Normal Negative, 25 Yandy/uL [facility] Comment on above: Order Comment: Speci men Type: BLOOD SPECIMEN Ordering Facility: [facility] Address: [address] [place] [address] Performed By: #### 5 8410-2 #### [facility] CLIA [id number] [address] [place] [address]56[address] Nitrite Ql (U) Negative Normal Negative [facility] Comment on above: Order Comment: Speci men Type: BLOOD SPECIMEN Ordering Facility: [facility] Address: [address] [place] [address] Performed By: #### 5 8410-2 #### [facility] CLIA [id number] [address] [place] [address] pH (U) 6.0 [pH] Normal 5.0-8.0 [facility] Comment on above: Order Comment: Speci men Type: BLOOD SPECIMEN Ordering Facility: [facility] Address: [address] [place] [address] Performed By: #### 5 8410-2 #### [facility] CLIA [id number] [address] [place] [address]88 Protein (U) [Mass/Vol] Negative Normal Trace, Negative [facility] Comment on above: Order Comment: Speci men Type: BLOOD SPECIMEN Ordering Facility: [facility] Address: [address] [place] [address] Performed By: #### 5 8410-2 #### [facility] CLIA [id number] [address] [place] [address] 70254 Specific gravity (U) [Rel density] 1.017 Normal 1.005-1.030 [facility] Comment on above: Order Comment: Speci men Type: BLOOD SPECIMEN Ordering Facility: [facility] Address: [address] [place] [address] Performed By: #### 5 8410-2 #### [facility] CLIA [id number] [address] [place] [address] Urobilinogen Ql (U) Negative Normal Negative [facility] Comment on above: Order Comment: Speci men Type: BLOOD SPECIMEN Ordering Facility: [facility] Address: [address] [place] [address] Performed By: #### 5 8410-2 #### [facility] CLIA [id number] [address] [place] [address] CBC panel Auto (Bld)on 06-03 Erythrocyte distribution width (RBC) [Ratio] 12.9 % Normal 11.5-15.0 [facility] Comment on above: Order Comment: Speci men Type: BLOOD SPECIMENOrdering Facility: [facility] Address: [address] [place] [address] Performed By: #### 5 8410-2 ####[facility] [id number] [place] [address] Hematocrit (Bld) [Volume fraction] 46.2 % Normal 39.0-51.0 [facility] Comment on above: Order Comment: Speci men Type: BLOOD SPECIMENOrdering Facility: [facility] Address: [address] [place] [address] Performed By: #### 5 8410-2 ####[facility] [id number] [place] [address] Hemoglobin (Bld) [Mass/Vol] 15.4 g/dL Normal 13.0-17.0 [facility] Comment on above: Order Comment: Speci men Type: BLOOD SPECIMENOrdering Facility: [facility] Address: [address] [place] [address] Performed By: #### 5 8410-2 ####[facility] [id number] [place] [address] MCH (RBC) [Entitic mass] 31.6 pg Normal 26.0-34.0 [facility] Comment on above: Order Comment: Speci men Type: BLOOD SPECIMENOrdering Facility: [facility] Address: [address] [place] [address] Performed By: #### 5 8410-2 ####[facility] [id number] [place] [address] MCHC (RBC) [Mass/Vol] 33.3 g/dL Normal 30.5-36.0 [facility] Comment on above: Order Comment: Speci men Type: BLOOD SPECIMENOrdering Facility: [facility] Address: [address] [place] [address] Performed By: #### 5 8410-2 ####[facility] [id number] [place] [address] MCV (RBC) [Entitic vol] 94.9 fL Normal 80.0-100.0 [facility] Comment on above: Order Comment: Speci men Type: BLOOD SPECIMENOrdering Facility: [facility] Address: [address] [place] [address] Performed By: #### 5 8410-2 ####[facility] [id number] [place] [address] Nucleated RBC (Bld) [#/Vol] 10*3/uL Normal <0.01 [facility] Comment on above: Order Comment: Speci men Type: BLOOD SPECIMENOrdering Facility: [facility] Address: [address] [place] [address] Performed By: #### 5 8410-2 ####[facility] [id number] [place] [address] Platelet mean volume (Bld) [Entitic vol] 8.8 fL Low 9.0-12.7 [facility] Comment on above: Order Comment: Speci men Type: BLOOD SPECIMENOrdering Facility: [facility] Address: [address] [place] [address] Performed By: #### 5 8410-2 ####[facility] [id number] [place] [address] Platelets (Bld) [#/Vol] 145 10*3/uL Low 150-400 [facility] Comment on above: Order Comment: Speci men Type: BLOOD SPECIMENOrdering Facility: [facility] Address: [address] [place] [address] Performed By: #### 5 8410-2 ####[facility] [id number] [place] [address] RBC (Bld) [#/Vol] 4.87 10*6/uL Normal 4.20-6.00 [facility] Comment on above: Order Comment: Speci men Type: BLOOD SPECIMENOrdering Facility: [facility] Address: [address] [place] [address] Performed By: #### 5 8410-2 ####[facility]IA [id number] [place] [address] WBC (Bld) [#/Vol] 7.14 10*3/uL Normal 3.70-11.00 [facility] Comment on above: Order Comment: Speci men Type: BLOOD SPECIMENOrdering Facility: [facility] Address: [address] [place] [address] Performed By: #### 5 8410-2 ####[facility] [id number] [place] [address] Comprehensive metabolic 2000 panelon 06-03-2023 Albumin [Mass/Vol] 4.2 g/dL Normal 3.9-4.9 [facility] Comment on above: Order Comment: Speci men Type: BLOOD SPECIMENOrdering Facility: [facility] Address: [address] [place] [address] Performed By: #### 1 9123-9, 60777-6, 2777-1 ####[facility] [id number] [place] [address] ALP [Catalytic activity/Vol] 55 U/L Normal 38-113 [facility] Comment on above: Order Comment: Speci men Type: BLOOD SPECIMENOrdering Facility: [facility] Address: [address] [place] [address] Performed By: #### 1 9123-9, 25664-9, 2776- ####[facility] [id number] [place] [address] ALT [Catalytic activity/Vol] 14 U/L Normal 10-54 [facility] Comment on above: Order Comment: Speci men Type: BLOOD SPECIMENOrdering Facility: [facility] Address: [address] [place] [address] Performed By: #### 1 9123-9, 57595-9, 2776- ####[facility] [id number] [place] [address] Anion gap [Moles/Vol] 9 mmol/L Normal 9-18 [facility] Comment on above: Order Comment: Speci men Type: BLOOD SPECIMENOrdering Facility: [facility] Address: [address] [place] [address] Performed By: #### 1 9123-9, , 2776- ####[facility]IA [id number] [place] [address] AST [Catalytic activity/Vol] 19 U/L Normal 14-40 [facility] Comment on above: Order Comment: Speci men Type: BLOOD SPECIMENOrdering Facility: [facility] Address: [address] [place] [address] Performed By: #### 1 9123-9, 09685-2, 2776- ####[facility]IA [id number] [place] [address] Bilirubin [Mass/Vol] 1.7 mg/dL High 0.2-1.3 [facility] Comment on above: Order Comment: Speci men Type: BLOOD SPECIMENOrdering Facility: [facility] Address: [address] [address] Performed By: #### 1 9123-9, 64030-4, 277- ####[facility] LABIA [id number] [place] [address] Calcium [Mass/Vol] 10.1 mg/dL Normal 8.5-10.2 [facility] Comment on above: Order Comment: Speci men Type: BLOOD SPECIMENOrdering Facility: [facility] Address: [address] [address] Performed By: #### 1 9123-9, 88681-7, 277- ####[facility] [id number] [place] [address] Chloride [Moles/Vol] 106 mmol/L High 97-105 Select [facility] Comment on above: Order Comment: Speci men Type: BLOOD SPECIMENOrdering Facility: [facility] Address: [address] [address] Performed By: #### 1 9123-9, 55029-3, 2776- ####[facility] [id number] [place] [address] CO2 [Moles/Vol] 26 mmol/L Normal 22-30 [facility] Comment on above: Order Comment: Speci men Type: BLOOD SPECIMENOrdering Facility: [facility] Address: [address] [address] Performed By: #### 1 9123-9, 69009-4, 2776- ####[facility] LABIA [id number] [place] [address] Creatinine [Mass/Vol] 1.48 mg/dL High 0.73-1.22 [facility] Comment on above: Order Comment: Speci men Type: BLOOD SPECIMENOrdering Facility: [facility] Address: [address] [address] Performed By: #### 1 9123-9, 78930-9, 2776-09 ####[facility] LABCLIA [id number] [place] [address] Creatinine and Glomerular filtration rate.predicted panel (S/P/Bld) 52 mL/min/1.73m??? Low >=60 [facility] Comment on above: Order Comment: Sharonkina echeverria Type: BLOOD SPECIMENOrdering Facility: [facility] Address: [address] [place] [address] Result Comment: Katalina mated Glomerular Filtration Rate [...] actual GFR. Performed By: #### 1 9123-9, 30990-4, 277- ####[facility] LABCLIA [id number] [place] [address] Glucose [Mass/Vol] 129 mg/dL High 74-99 [facility] Comment on above: Order Comment: Anitra echeverria Type: BLOOD SPECIMENOrdering Facility: [facility] Address: [address] [place] [address] Result Comment: The [place] Diabetes Association (ADA) provides guidance for cutoff [...] Standards of Medical Care in Diabetes 2016, [place] [employer]. Diabetes Care. 2016.39(Suppl 1). Performed By: #### 1 9123-9, 95040-8, 2777- ####[facility] LABCLIA [id number] [place] [address] Potassium [Moles/Vol] 4.3 mmol/L Normal 3.7-5.1 [facility] Comment on above: Order Comment: Speci men Type: BLOOD SPECIMENOrdering Facility: [facility] Address: [address] [place] [address] Performed By: #### 1 9123-9, 75818-1, 277- ####[facility] LABCLIA [id number] [place] [address] Protein [Mass/Vol] 6.2 g/dL Low 6.3-8.0 [facility] Comment on above: Order Comment: Speci men Type: BLOOD SPECIMENOrdering Facility: [facility] Address: [address] [place] [address] Performed By: #### 1 9123-9, 14873-8, 2776- ####[facility] LABIA [id number] [place] [address] Sodium [Moles/Vol] 141 mmol/L Normal 136-144 [facility] Comment on above: Order Comment: Speci men Type: BLOOD SPECIMENOrdering Facility: [facility] Address: [address] [place] [address] Performed By: #### 1 9123-9, 79191-1, 277- ####[facility] LABIA [id number] [place] [address] Urea nitrogen [Mass/Vol] 19 mg/dL Normal 9-24 [facility] Comment on above: Order Comment: Speci men Type: BLOOD SPECIMENOrdering Facility: [facility] Address: [address] [place] [address] Performed By: #### 1 9123-9, 91829-2, 2776- ####[facility] LABIA [id number] [place] [address] Magnesium [facility] Magnesium [Mass/Vol] 1.6 mg/dL Low 1.7-2.3 [facility] Comment on above: Order Comment: Speci men Type: BLOOD SPECIMENOrdering Facility: [facility] Address: [address] [place] [address] Performed By: #### 1 9123-9, 46076-1, 2777-1 ####[facility] LABCLIA [id number] [place] [address] Phosphate SerPl-mCncon 06-03 Phosphate [Mass/Vol] 2.7 mg/dL Normal 2.7-4.8 [facility] Comment on above: Order Comment: Speci men Type: BLOOD SPECIMENOrdering Facility: [facility] Address: [address] [place] [address] Performed By: #### 1 9123-9, 69517-7, 2777-1 ####[facility] LABCLIA [id number] [place] [address] Tacrolimus Bld-mCncon 2022 Tacrolimus (Bld) [Mass/Vol] 5.7 ng/mL Normal 5.0-20.0 [facility] Comment on above: Order Comment: Speci men Type: BLOOD SPECIMENOrdering Facility: [facility] Address: [address] [place] [address] Result Comment: Olivia vidualized target levels for [...] situation. Test performed by chemiluminescent immunoassay using [employer] Alinity i. Performed By: #### 1 1253-2 ####[facility] LABCLIA [id number] [facility] [place] [address] [place] PSA SerPl-mCncon 04-29-2023 Prostate specific Ag [Mass/Vol] 4.94 ng/mL High <2.60 [facility] Comment on above: Order Comment: Speci men Type: BLOOD SPECIMENOrdering Facility: [facility] Address: [place] [address] Result Comment: Quin charles PSA test methodology used is the Electrochemiluminescence [...] Ana Regalado, M.P.H., Carlie De Los Santos, Sc.Shaunna. Effect of Verification Bias on Screening for Prostate Cancer by Measurement of Prostatic Specific Antigen. N Engl J Med 2003,349:335-42. Performed By: #### 2 857-1 ####[facility] LABCLIA [id number] [place] [address] [place] BK VIRUS PCR,QUANT,Emeka 03-04 BK virus DNA TAYLOR+probe [#/Vol] Not detected Normal BK Virus DNA Not Detected by PCR. [facility] Comment on above: Order Comment: Speci men Type: BLOOD SPECIMENOrdering Facility: [facility] Address: [place] [address] Performed By: #### B KQUKATERINA ####[facility] LABCLIA [id number] [place] [address] [place] CBC panel Auto (Bld)on 03-04 Erythrocyte distribution width (RBC) [Ratio] 12.9 % Normal 11.5-15.0 [facility] Comment on above: Order Comment: Speci men Type: BLOOD SPECIMEN [facility] Address: [address] [place], [place] [address] Performed By: #### 5 8410-2 #### [facility] CLIA [id number] [address] [place] [address] Hematocrit (Bld) [Volume fraction] 44.1 % Normal 39.0-51.0 [facility] Comment on above: Order Comment: Speci men Type: BLOOD SPECIMEN [facility] Address: [address] [place] [address] Performed By: #### 5 8410-2 #### [facility] CLIA [id number] [address] [place] [address] Hemoglobin (Bld) [Mass/Vol] 14.9 g/dL Normal 13.0-17.0 [facility] Comment on above: Order Comment: Speci men Type: BLOOD SPECIMEN [facility] Address: [address] [place] [address] Performed By: #### 5 8410-2 #### [facility] CLIA [id number] [address] [place] [address] MCH (RBC) [Entitic mass] 32.0 pg Normal 26.0-34.0 [facility] Comment on above: Order Comment: Speci men Type: BLOOD SPECIMEN [facility] Address: [address] [place] [address] Performed By: #### 5 8410-2 #### [facility] CLIA [id number] [address] [place] [address] MCHC (RBC) [Mass/Vol] 33.8 g/dL Normal 30.5-36.0 [facility] Comment on above: Order Comment: Speci men Type: BLOOD SPECIMEN [facility] Address: [address] [place] [address] Performed By: #### 5 8410-2 #### [facility] CLIA [id number] [address] [place] [address] MCV (RBC) [Entitic vol] 94.6 fL Normal 80.0-100.0 [facility] Comment on above: Order Comment: Speci men Type: BLOOD SPECIMEN [facility] Address: [address] [place] [address] Performed By: #### 5 8410-2 #### [facility] CLIA [id number] [address] [place] [address] Nucleated RBC (Bld) [#/Vol] 10*3/uL Normal <0.01 [facility] Comment on above: Order Comment: Speci men Type: BLOOD SPECIMEN [facility] Address: [address] [place] [address] Performed By: #### 5 8410-2 #### [facility] CLIA [id number] [address] [place] [address] Platelet mean volume (Bld) [Entitic vol] 9.0 fL Normal 9.0-12.7 [facility] Comment on above: Order Comment: Speci men Type: BLOOD SPECIMEN [facility] Address: [address] [place] [address] Performed By: #### 5 8410-2 #### [facility] CLIA [id number] [address] [place] [address] Platelets (Bld) [#/Vol] 135 10*3/uL Low 150-400 [facility] Comment on above: Order Comment: Speci men Type: BLOOD SPECIMEN [facility] Address: [address] [place] [address] Performed By: #### 5 8410-2 #### [facility] CLIA [id number] [address] [place] [address] RBC (Bld) [#/Vol] 4.66 10*6/uL Normal 4.20-6.00 [facility] Comment on above: Order Comment: Speci men Type: BLOOD SPECIMEN [facility] Address: [address] [place] [address] Performed By: #### 5 8410-2 #### [facility] CLIA [id number] [address] [place] [address] WBC (Bld) [#/Vol] 6.85 10*3/uL Normal 3.70-11.00 [facility] Comment on above: Order Comment: Speci men Type: BLOOD SPECIMEN [facility] Address: [address] [place] [address] Performed By: #### 5 8410-2 #### [facility] CLIA [id number] [address] [place] [address] Comprehensive metabolic 2000 panelon 03-04-2023 Albumin [Mass/Vol] 4.3 g/dL Normal 3.9-4.9 [facility] Comment on above: Order Comment: Speci men Type: BLOOD SPECIMENOrdering Facility: [facility] Address: [address] Performed By: #### 2 4323-8, 2777-1, ####[facility] LABCLIA [id number] [place] [address] ALP [Catalytic activity/Vol] 58 U/L Normal 38-113 [facility] Comment on above: Order Comment: Speci men Type: BLOOD SPECIMENOrdering Facility: [facility] Address: [address] Performed By: #### 2 4323-8, 2777-1, 20823-2 ####[facility] LABCLIA [id number] [place] [address] ALT [Catalytic activity/Vol] 13 U/L Normal 10-54 [facility] Comment on above: Order Comment: Speci men Type: BLOOD SPECIMENOrdering Facility: [facility] Address: [address] Performed By: #### 2 4323-8, 27703-08, ####[facility] LABCLIA [id number] [place] [address] Anion gap [Moles/Vol] 8 mmol/L Low 9-18 [facility] Comment on above: Order Comment: Speci men Type: BLOOD SPECIMENOrdering Facility: [facility] Address: [address] [place] [address] Performed By: #### 2 4323-8, 27703-08, ####[facility] LABCLIA [id number] [place] [address] AST [Catalytic activity/Vol] 16 U/L Normal 14-40 [facility] Comment on above: Order Comment: Speci men Type: BLOOD SPECIMENOrdering Facility: [facility] Address: [address] [place] [address] Performed By: #### 2 4323-8, 2776-09, ####[facility] LABCLIA [id number] [place] [address] Bilirubin [Mass/Vol] 1.3 mg/dL Normal 0.2-1.3 [facility] Comment on above: Order Comment: Speci men Type: BLOOD SPECIMENOrdering Facility: [facility] Address: [address] [place] [address] Performed By: #### 2 4323-8, 2776-09, ####[facility] LABCLIA [id number] [place] [address] Calcium [Mass/Vol] 9.7 mg/dL Normal 8.5-10.2 [facility] Comment on above: Order Comment: Speci men Type: BLOOD SPECIMENOrdering Facility: [facility] Address: [address] [place] [address] Performed By: #### 2 4323-8, 27703-08, ####[facility] LABCLIA [id number] [place] [address] Chloride [Moles/Vol] 104 mmol/L Normal 97-105 [facility] Comment on above: Order Comment: Speci men Type: BLOOD SPECIMENOrdering Facility: [facility] Address: [address] [place] [address] Performed By: #### 2 4323-8, 2777-1, ####[facility] [id number] [place] [address] CO2 [Moles/Vol] 26 mmol/L Normal 22-30 [facility] Comment on above: Order Comment: Speci men Type: BLOOD SPECIMENOrdering Facility: [facility] Address: [address] [place] [address] Performed By: #### 2 4323-8, 2777-, ####[facility] LABIA [id number] [place] [address] Creatinine [Mass/Vol] 1.36 mg/dL High 0.73-1.22 [facility] Comment on above: Order Comment: Speci men Type: BLOOD SPECIMENOrdering Facility: [facility] Address: [address] [place] [address] Performed By: #### 2 4323-8, 27703-08, ####[facility] LABIA [id number] [place] [address] ESTIMATED GLOMERULAR FILTRATION RATE 58 mL/min/1.73m??? Low >=60 [facility] Comment on above: Order Comment: Speci men Type: BLOOD SPECIMENOrdering Facility: [facility] Address: [address] [place] [address] Result Comment: Katalina mated Glomerular Filtration Rate [...] actual GFR. Performed By: #### 2 4323-8, 2777, ####[facility] LABCLIA [id number] [place] [address] Glucose [Mass/Vol] 118 mg/dL High 74-99 [facility] Comment on above: Order Comment: Speci men Type: BLOOD SPECIMENOrdering Facility: [facility] Address: [address] [id number] Result Comment: The [place] Diabetes Association (ADA) provides guidance for cutoff [...] Standards of Medical Care in Diabetes 2016, [place] [employer]. Diabetes Care. 2016.39(Suppl 1). Performed By: #### 2 4323-8, 2776-09, ####[facility] LABCLIA [id number] [place] [address] Potassium [Moles/Vol] 4.2 mmol/L Normal 3.7-5.1 [facility] Comment on above: Order Comment: Anitra echeverria Type: BLOOD SPECIMENOrdering Facility: [facility] Address: [address] [place] [address] Performed By: #### 2 4323-8, 27703-08, ####[facility] LABIA [id number] [place] [address] Protein [Mass/Vol] 6.3 g/dL Normal 6.3-8.0 [facility] Comment on above: Order Comment: Anitra men Type: BLOOD SPECIMENOrdering Facility: [facility] Address: [address] [place], [place] [address] Performed By: #### 2 4323-8, 2777, ####[facility] LABIA [id number] [place] [address] Sodium [Moles/Vol] 138 mmol/L Normal 136-144 [facility] Comment on above: Order Comment: Speci men Type: BLOOD SPECIMENOrdering Facility: [facility] Address: [address] [place] [address] Performed By: #### 2 4323-8, 27703-08, ####[facility] [id number] [place] [address] Urea nitrogen [Mass/Vol] 16 mg/dL Normal 9-24 [facility] Comment on above: Order Comment: Speci men Type: BLOOD SPECIMENOrdering Facility: [facility] Address: [address] [place] [address] Performed By: #### 2 4323-8, 27703-08, ####[facility] LABIA [id number] [place] [address] Magnesium SerPl-mCncon 03-04 Magnesium [Mass/Vol] 1.6 mg/dL Low 1.7-2.3 [facility] Comment on above: Order Comment: Speci men Type: BLOOD SPECIMENOrdering Facility: [facility] Address: [address] [place] [address] Performed By: #### 2 4323-8, 27703-08, ####[facility] LABIA [id number] [place] [address] Phosphate SerPl-mCncon 03-04 Phosphate [Mass/Vol] 2.7 mg/dL Normal 2.7-4.8 [facility] Comment on above: Order Comment: Speci men Type: BLOOD SPECIMENOrdering Facility: [facility] Address: [address] [place] [address], [place] [address] Performed By: #### 2 4323-8, 2777-1, 69426-3 ####[facility] [id number] [place] [address] Tacrolimus Bld-ncon 2022 Tacrolimus (Bld) [Mass/Vol] 6.0 ng/mL Normal 5.0-20.0 [facility] Comment on above: Order Comment: Speci men Type: BLOOD SPECIMEN [facility] Address: [address] [place] [address] Result Comment: Olivia vidualized target levels for [...] Alinity i. Performed By: #### 1 1253-2 #### [facility] CLIA [id number] [address] [place] [address] [place] UA DIP, URINE (POC)on 2022 BILIRUBIN UA (POCT) Negative Negative [facility] CLARITY UA (POCT) Clear [facility] COLOR UA (POCT) Yellow [facility] GLUCOSE UA (POCT) Negative Negative mg/dL [facility] HEMOGLOBIN/BLOOD UA (POCT) Negative Negative [facility] KETONE UA (POCT) Negative Negative mg/dL [facility] LEUKOCYTES UA (POCT) Negative Negative [facility] NITRITE UA (POCT) Negative Negative [facility] PH UA (POCT) 7.5 4.5 - 8.0 [facility] Protein Ql (U) Negative Negative mg/dL [facility] SPECIFIC GRAVITY UA (POCT) 1.020 1.005 - 1.030 [facility] UROBILINOGEN UA (POCT) 0.2 E.U./dL Normal E.U./dL [facility] US TRANSRECTAL PROSTATE (JOSE S) (POC) GUKI USE ONLYon 10-17-2022 [facility] URINALYSIS, REFLEX MICROSCOP ICon 09-16-2022 Bilirubin Ql (U) Negative Negative [facility] Clarity (Unsp spec) Clear Clear [facility] Color (U) Yellow [facility] Glucose Test strip (U) [Mass/Vol] Negative Trace, Negative [facility] Hemoglobin Ql (U) Negative Negative, Trace [facility] Ketones Ql (U) Negative Negative, Trace [facility] Leukocyte esterase Test strip Ql (U) Negative Negative, 25 Yandy/mL [facility] Nitrite Ql (U) Negative Negative [facility] pH (U) 6.0 [pH] 5.0 - 8.0 [facility] Protein (U) [Mass/Vol] Trace Trace, Negative [facility] Specific gravity (U) [Rel density] 1.029 1.005 - 1.030 [facility] Urobilinogen Ql (U) 1+ Abnormal Negative [facility] URINALYSIS, REFLEX MICROSCOP ICon 07-01-2022 Bilirubin Ql (U) Negative Negative [facility] Clarity (Unsp spec) Clear Clear [facility] Color (U) Yellow Yellow [facility] Glucose Test strip (U) [Mass/Vol] Negative Negative [facility] Hemoglobin Ql (U) Negative Negative [facility] Ketones Ql (U) Negative Negative [facility] Leukocyte esterase Test strip Ql (U) Negative Negative [facility] Nitrite Ql (U) Negative Negative [facility] pH (U) 6.5 [pH] 5.0 - 8.0 [facility] Protein (U) [Mass/Vol] Negative Negative [facility] Specific gravity (U) [Rel density] 1.016 1.005 - 1.030 [facility] Urobilinogen Ql (U) Negative Negative [facility] ISOPSA ASSAY FOR UROLOGY USE ONLYon 02-08-2022 INTERP IsoPSA test was not performed, as the test has not been validated in patients with tPSA <4.0ng/mL. [facility] ISOPSA 0 <6.1 [facility] TPSA 3.590 0-<4 [facility] XR ankle LT min 3V*on 2020 XR ankle LT min 3V* [address] [address] XRay Report Signed Patient: Link Rosen MR#: [id number] 89 : 1955 Acct:[id number] Age/Sex: 65 / M ADM Date: 02/06/21 Loc: [facility] Room: Type: [facility] Attending Dr: Chrissy Babin DPM, MS Ordering Provider: Chrissy Babin DPM, MS Date of Service: 02/06/21 XR/XR foot LT min 3V*: M79.672 ([id number]) XR/XR ankle LT min 3V*: M25.572 Copies to: Chrissy Babin DPM, MS 3 viewsLEFT foot plain film [...] Gama Salas M.D.02/06/2021 1:52 PM Dictation Location: [place] [address] Transcribed By: [facility] 02/06/21 1352 Dictated By: Gama Salas DO 02/06/21 1349 Signed By: 02/06/21 1352 [facility] Vital Signs Date Time Vital Sign Value Performing Clinician Jovanna lee 01-15-2024 13:24-0400 Body mass index (BMI) [Ratio] 38.62 kg/m2 Wei Pablo MD Work Phone: [facility] 01-15-2024 13:24040 Body weight 175.2 kg Wei Pablo MD Work Phone: [facility] 01-15-2024 13:240400 Diastolic blood pressure 82 mm[Hg] Wei Pablo MD Work Phone: [facility] 01-15-2024 13:24-0400 Heart rate 96 /min Wei Pablo MD Work Phone: [facility] 01-15-2024 13:24-0400 Systolic blood pressure 126 mm[Hg] Wei Pablo MD Work Phone: [facility] 11-10-2023 09:22-0500 Body weight 173.6 kg Emanuel Scott MD Work Phone: [facility] 11-10-2023 09:22-0500 Diastolic blood pressure 80 mm[Hg] Emanuel Scott MD Work Phone: [facility] 11-10-2023 09:22-0500 Heart rate 84 /min Emanuel Scott MD Work Phone: [facility] 11-10-2023 09:22-0500 Systolic blood pressure 130 mm[Hg] Emanuel Scott MD Work Phone: [facility] 06-30-2023 11:10-0400 Body height 213.4 cm Usman Lowry EMERGENCY MEDICINE SPECIALIST.POST ACUTE CARE NURSE Work Phone: [facility] 06-30-2023 11:10-0400 Body temperature 97.81 [degF] Usman Essence EMERGENCY MEDICINE SPECIALIST.POST ACUTE CARE NURSE Work Phone: [facility] 06-30-2023 11:10-0400 Body weight 176.45 kg Usman Lowry EMERGENCY MEDICINE SPECIALIST.POST ACUTE CARE NURSE Work Phone: [facility] 06-30-2023 11:10-0400 Diastolic blood pressure 80 mm[Hg] Usman Lard EMERGENCY MEDICINE SPECIALIST.POST ACUTE CARE NURSE Work Phone: [facility] 06-30-2023 11:10-0400 Heart rate 91 /min Usman Lowry EMERGENCY MEDICINE SPECIALIST.POST ACUTE CARE NURSE Work Phone: [facility] 06-30-2023 11:10-0400 Systolic blood pressure 127 mm[Hg] Usman Lard EMERGENCY MEDICINE SPECIALIST.POST ACUTE CARE NURSE Work Phone: [facility] Encounters Encounter Date Encounter Type Care Provider Facility Start: 03-05-2024 End: 03-06-2024 ambulatory KATHLEEN SAMS Facility:[facility] Start: 03-02-2024 End: 03-02-2024 [facility] Facility:[facility] Start: 01-21-2024 Orders Only Wei Pablo MD Work Phone: Cardiology Comment on above: AF (paroxysmal atria l fibrillation) (HCC) (Primary Dx) Start: 01-15-2024 End: 01-15-2024 ambulatory WEI PABLO Facility:[facility] Start: 01-15-2024 End: 01-15-2024 Patient encounter procedure Wei Pablo MD Work Phone: Cardiology Comment on above: AF (paroxysmal atria l fibrillation) (HCC) (Primary Dx) Start: 12-26-2023 End: 12-26-2023 ambulatory KATHLEEN FLORES [facility] Facility:[facility] Start: 12-26-2023 [facility] Fac ility:[facility] Start: 12-26-2023 End: 12-26-2023 Subsequent hospital visit by physician Isis Shirley [facility] [facility] Work Phone: Nuclear Medicine Comment on above: Arrived Persistent atrial fi brillation (HCC) [I48.19] Start: 12-02-2023 End: 12-02-2023 ambulatory SELF Facility:[facility] Start: 11-26-2023 Refill Usman L Lar d EMERGENCY MEDICINE SPECIALIST.POST ACUTE CARE NURSE Work Phone: [facility] Comment on above: Refill Request Start: 11-20-2023 Refill Usman L Lar d EMERGENCY MEDICINE SPECIALIST.POST ACUTE CARE NURSE Work Phone: [facility] Comment on above: Refill Request Start: 11-10-2023 End: 11-10-2023 [facility] Facility:[facility] Start: 11-10-2023 End: 11-10-2023 Patient encounter procedure Emanuel Scott MD Work Phone: Cardiology Comment on above: Persistent atrial fi brillation (HCC) (Primary Dx); Abnormal EKG; Encounter for lipid screening for cardiovascular disease; Cardiomyopathy, unspecified type (HCC); 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) Start: 11-03-2023 End: 11-03-2023 ambulatory KATHLEEN FLORES [facility] Facility:[facility] Start: 10-31-2023 End: 10-31-2023 ambulatory EMANUEL SCOTT Facility:[facility] Start: 09-30-2023 End: 09-30-2023 ambulatory KATHLEEN SANDRA [facility] Facility:[facility] Start: 09-02-2023 End: 09-02-2023 ambulatory [facility] Facility:[facility] Start: 07-14-2023 ambulatory Usman sierra EMERGENCY MEDICINE SPECIALIST.POST ACUTE CARE NURSE Work Phone: [facility] Comment on above: afib Start: 07-10-2023 ambulatory Usman sierra EMERGENCY MEDICINE SPECIALIST.POST ACUTE CARE NURSE Work Phone: [facility] Comment on above: ecg Start: 07-01-2023 End: 07-01-2023 ambulatory [facility] Facility:[facility] Start: 07-01-2023 End: 07-01-2023 Nursing evaluation of patient and report Ma Nurse Musa Agarwal Work Phone: Hematology/Oncology Comment on above: Irregular heartbeat (Primary Dx); Polycystic kidney disease Start: 07-01-2023 Patient encounter procedure [facility] Provider [facility] Department Start: 06-30-2023 End: 06-30-2023 Patient encounter procedure Usman Lowry EMERGENCY MEDICINE SPECIALIST.POST ACUTE CARE NURSE Work Phone: [facility] Comment on above: Kidney replaced by t ransplant (Primary Dx); Hypophosphatemia; Hypomagnesemia; Irregular heartbeat; Aftercare following organ transplant Start: 06-30-2023 End: 06-30-2023 ambulatory USMAN LOWRY Facility:[facility] Start: 06-17-2023 Refill Usman sierra EMERGENCY MEDICINE SPECIALIST.POST ACUTE CARE NURSE Work Phone: [facility] Comment on above: Refill Request Start: 06-03-2023 End: 06-03-2023 ambulatory KATHLEEN FLORES [facility] Facility:[facility] Start: 04-29-2023 End: 04-29-2023 ambulatory JESSE BURKS Facility:[facility] Start: 03-04-2023 End: 03-04-2023 ambulatory KATHLEEN SANDRA SAMS Facility:[facility] Start: 12-03-2022 ambulatory Usman sierra EMERGENCY MEDICINE SPECIALIST.POST ACUTE CARE NURSE Work Phone: [facility] Comment on above: meds Start: 11-05-2022 End: 11-05-2022 ambulatory Jesse Burks MD Work Phone: Urology Comment on above: Elevated PSA (Primar y Dx) Start: 11-05-2022 End: 11-05-2022 Telemedicine consultation with patient Jesse Burks MD Work Phone: [facility] Start: 10-17-2022 End: 10-17-2022 Patient encounter procedure Jesse Burks MD Work Phone: Urology Comment on above: Elevated PSA (Primar y Dx) Start: 09-19-2022 Orders Only Kristina salas EMERGENCY MEDICINE SPECIALIST.POST ACUTE CARE NURSE Work Phone: Urology Comment on above: Encounter for observ ation for other suspected diseases and conditions ruled out (Primary Dx) 09/03/23 labs Start: 09-16-2022 ambulatory Kristina salas EMERGENCY MEDICINE SPECIALIST.POST ACUTE CARE NURSE Work Phone: Urology Start: 09-16-2022 End: 09-16-2022 Patient encounter procedure Kristina Whitaker EMERGENCY MEDICINE SPECIALIST.POST ACUTE CARE NURSE Work Phone: Urology Comment on above: Elevated PSA (Primar y Dx) Start: 07-01-2022 ambulatory Usman sierra EMERGENCY MEDICINE SPECIALIST.POST ACUTE CARE NURSE Work Phone: [facility] Start: 04-20-2022 End: 04-20-2022 ambulatory LANCE GLASGOW Facility: Start: 03-18-2022 Get Medical Advice Usman Lowry EMERGENCY MEDICINE SPECIALIST.POST ACUTE CARE NURSE Work Phone: [facility] Comment on above: refills Start: 03-16-2022 Refill Usman sierra EMERGENCY MEDICINE SPECIALIST.POST ACUTE CARE NURSE Work Phone: [facility] Comment on above: Refill Request Start: 02-26-2022 End: 02-26-2022 ambulatory Jesse Burks MD Work Phone: Urology Comment on above: Elevated PSA (Primar y Dx) Start: 02-26-2022 End: 02-26-2022 Telemedicine consultation with patient Jesse Burks MD Work Phone: [facility] Start: 02-07-2022 Orders Only Umsan tian PA Work Phone: Urology Start: 01-31-2022 End: 01-31-2022 ambulatory Jesse Burks MD Work Phone: Urology Comment on above: Elevated prostate sp ecific antigen (PSA) (Primary Dx); Elevated PSA Start: 01-31-2022 End: 01-31-2022 Telemedicine consultation with patient Jesse Burks MD Work Phone: [facility] Start: 01-30-2022 End: 01-31-2022 ambulatory [facility] Facility:[facility] Start: 07-26-2021 End: 07-27-2021 ambulatory [facility] Facility: Procedures Date Procedure Procedure Detail Performing Clinician Start: 03-05-2024 Antibody screen KATHLEEN SAMS Comment on above: Order Comment: Speci men Type: BLOOD SPECIMEN Ordering Facility: [facility] Address: [address] [place] [address] Performed By: #### T SCR #### [facility] [id number] [address] [place] [address] [place] Start: 01-15-2024 Ecg routine ecg w/least 12 lds i&r only [facility] Provider Start: 12-02-2023 Lipid 1996 panel - Serum or Plasma Injection Rej Work Phone: Start: 11-10-2023 Ecg routine ecg w/least 12 lds i&r only [facility] Provider Start: 10-17-2022 Urnls dip stick/tabl et rgnt [...] 1996 panel - Serum or Plasma Usman Lard EMERGENCY MEDICINE SPECIALIST.POST ACUTE CARE NURSE Work Phone: Start: 05-08-2009 History of renal transplant Kidney replaced by transplant Usman Patricia PA Work Phone: History of renal transplant S/p cadaver renal transplant Usman Patricia PA Work Phone: History of renal transplant Kidney replaced by transplant Usman L Lard EMERGENCY MEDICINE SPECIALIST.POST ACUTE CARE NURSE Work Phone: History of renal transplant Kidney replaced by transplant Usman L Lard EMERGENCY MEDICINE SPECIALIST.POST ACUTE CARE NURSE Work Phone: History of renal transplant Kidney replaced by transplant Usman L Lard EMERGENCY MEDICINE SPECIALIST.POST ACUTE CARE NURSE Work Phone: History of renal transplant Kidney replaced by transplant Usman L Lard EMERGENCY MEDICINE SPECIALIST.POST ACUTE CARE NURSE Work Phone: History of renal transplant Kidney replaced by transplant Usman L Lard EMERGENCY MEDICINE SPECIALIST.POST ACUTE CARE NURSE Work Phone: History of renal transplant Kidney replaced by transplant Usman L Lard EMERGENCY MEDICINE SPECIALIST.POST ACUTE CARE NURSE Work Phone: History of renal transplant Kidney replaced by transplant Usman L Lard EMERGENCY MEDICINE SPECIALIST.POST ACUTE CARE NURSE Work Phone: History of renal transplant Kidney replaced by transplant Usman L Lard EMERGENCY MEDICINE SPECIALIST.POST ACUTE CARE NURSE Work Phone: Plan of Treatment Date Care Activity Detail Author Start: 12-01-2028 Lipid panel Lipid Screening [facility] Start: 04-29-2028 Prostate Cancer Screening Discussion Prostate Cancer Screening Discussion [facility] Start: 04-29-2028 Prostate specific antigen measurement Prostate Cancer Screening Discussion [facility] Start: 09-03-2027 PROSTATE CANCER SCREENING DISCUSSION PROSTATE CANCER SCREENING DISCUSSION [facility] Start: 01-16-2027 PROSTATE CANCER SCREENING DISCUSSION PROSTATE CANCER SCREENING DISCUSSION [facility] Start: 12-01-2026 Diabetes Screening Diabetes Screening [facility] Start: 11-03-2026 Diabetes Screening Diabetes Screening [facility] Start: 06-03-2026 Diabetes Screening Diabetes Screening [facility] Start: 03-06-2026 Lipid 1996 panel - Serum or Plasma Lipid Screening [facility] Start: 03-06-2026 Lipid panel Lipid Screening [facility] Start: 03-06-2026 LIPID SCREEN LIPID SCREEN [facility] Start: 12-02-2025 DIABETES SCREEN DIABETES SCREEN [facility] Start: 09-03-2025 DIABETES SCREEN DIABETES SCREEN [facility] Start: 12-01-2024 Complete blood count Hemoglobin/Hematocrit [facility] Start: 12-01-2024 Creatinine measurement Serum Creatinine [facility] Start: 11-03-2024 Creatinine measurement Serum Creatinine [facility] Start: 07-06-2024 End: 07-06-2024 Patient encounter procedure 07/06/2024 2:00 PM EDT Office Visit Kidney [facility] [address] [address] Leandro Oneil MD [address] [place] [address] 1 yr follow up Kidney [facility] Comment on above: 1 yr follow up Start: 06-03-2024 Hemoglobin/Hematocrit Hemoglobin/Hematocrit [facility] Start: 06-03-2024 Serum Creatinine Serum Creatinine [facility] Start: 05-09-2024 Influenza vaccination Influenza Vaccine (Season Ended) [facility] Start: 03-12-2024 End: 03-12-2024 Patient encounter procedure 03/12/2024 9:30 AM EDT Office Visit Cardiology [address] [facility] [place] [address] Emanuel Scott MD [address] [facility] [place] [address] 4 month follow up Cardiology Comment on above: 4 month follow up Start: 03-02-2024 End: 03-02-2024 Patient encounter procedure 03/02/2024 9:30 AM EDT Office Visit [address] [place] [address] LAB [facility] Comment on above: LAB Start: 02-24-2024 End: 02-24-2024 Patient encounter procedure 02/24/2024 1:00 PM EDT Office Visit Cardiology [address] [place] [address] Sahra Briceño APRN.POST ACUTE CARE NURSE [address] [place] [address] S/P ABLATION Cardiology Comment on above: S/P ABLATION Start: 02-11-2024 End: 02-11-2024 Admission to same day surgery center 02/11/2024 12:15 PM EDT - 02/11/2024 3:48 PM EDT Surgery [facility] [id number] [place] [address] [place] [address] [place] [address] COMPLETE EPS W/PVI ABL W/WO 3D MAP ICE [facility] Comment on above: COMPLETE EPS W/PVI ABL W/WO 3D MAP ICE Start: 02-11-2024 End: 02-11-2024 Ephys evl trnsptl tx atrial fib isolat pulm vein COMPLETE EPS W/PVI ABL W/WO 3D MAP ICE Atrial fibrillation, unspecified type (HCC) 02/11/2024 12:15 PM EDT [facility] Start: 02-11-2024 End: 02-11-2024 Percutaneous transluminal ablation of atrioventricular node ADD'L PVI ABLATION Atrial fibrillation, unspecified type (HCC) 02/11/2024 12:15 PM EDT [facility] Start: 02-11-2024 Subsequent hospital visit by physician 02/11/2024 12:15 PM EDT Hospital Encounter [facility] [id number] [place] [address] [place] [address] [place] [address] Atrial fibrillation, unspecified type (HCC) [I48.91] [facility] Comment on above: Atrial fibrillation, unspecified type (H CC) [I48.91] Start: 01-21-2024 End: 04-21-2024 Basic metabolic 2000 panel - Serum or Plasma BASIC METABOLIC PANEL Lab Routine AF (paroxysmal atrial fibrillation) (HCC) Expected: 01/21/2024, Expires: 04/21/2024 [facility] Comment on above: Expected: 01/21/2024, Expires: Start: 01-21-2024 End: 04-21-2024 CBC panel - Blood by Automated count COMPLETE BLOOD COUNT Lab Routine AF (paroxysmal atrial fibrillation) (HCC) Expected: 01/21/2024, Expires: 04/21/2024 [facility] Work Phone: Comment on above: Expected: 01/21/2024, Expires: Start: 01-21-2024 End: 04-21-2024 TYPE AND SCREEN,30 DAY TYPE AND SCREEN,30 DAY Blood Bank Routine AF (paroxysmal atrial fibrillation) ([facility]) Expected: 01/21/2024, Expires: 04/21/2024 [facility] Comment on above: Expected: 01/21/2024, Expires: Start: 12-03-2023 HEMOGLOBIN/HEMATOCRIT HEMOGLOBIN/HEMATOCRIT [facility] Start: 12-03-2023 SERUM CREATININE SERUM CREATININE [facility] Start: 11-10-2023 End: 02-09-2024 Lipid 1996 panel - Serum or Plasma LIPID PANEL BASIC Lab Routine Persistent atrial fibrillation (HCC) Abnormal EKG Encounter for lipid screening for cardiovascular disease Expected: 11/10/2023, Expires: 02/09/2024 [facility] Work Phone: Comment on above: Expected: 11/10/2023, Expires: Start: 09-08-2023 Advance Directive Discussion Advance Directive Discussion [facility] Start: 09-08-2023 Behavioral Health Screening Behavioral Health Screening [facility] Start: 09-08-2023 Depression Assessment Depression Assessment [facility] Start: 09-03-2023 HEMOGLOBIN/HEMATOCRIT HEMOGLOBIN/HEMATOCRIT [facility] Start: 09-03-2023 SERUM CREATININE SERUM CREATININE [facility] Start: 05-09-2023 Influenza vaccination Influenza Vaccine (#1) [facility] Start: 05-05-2023 End: 07-05-2023 Prostate specific Ag [Mass/volume] in Serum or Plasma PSA/PROSTSPECAG DIAG Lab Routine Elevated PSA Expected: 05/05/2023 (Approximate), Expires: 07/05/2023 [facility] Work Phone: Comment on above: Expected: 05/05/2023 (Approximate), Expi res: 07/05/2023 Start: 09-16-2022 End: 11-16-2022 ISOPSA ASSAY FOR UROLOGY USE ONLY ISOPSA ASSAY FOR UROLOGY USE ONLY Lab Routine Elevated PSA Expected: 09/16/2022, Expires: 11/16/2022 [facility] Work Phone: Comment on above: Expected: 09/16/2022, Expires: 3 Start: 09-08-2022 ADVANCE DIRECTIVE DISCUSSION ADVANCE DIRECTIVE DISCUSSION [facility] Start: 09-08-2022 DEPRESSION ASSESSMENT DEPRESSION ASSESSMENT [facility] Start: 2022 ADVANCE DIRECTIVE DISCUSSION ADVANCE DIRECTIVE DISCUSSION [facility] Start: 05-09-2022 Influenza vaccination INFLUENZA (#1) [facility] Start: 02-26-2022 End: 04-28-2022 Prostate specific Ag [Mass/volume] in Serum or Plasma PSA/PROSTSPECAG DIAG Lab Routine Elevated PSA Expected: 02/26/2022, Expires: 04/28/2022 [facility] Work Phone: Comment on above: Expected: 02/26/2022, Expires: 2 Start: 09-08-2021 DEPRESSION ASSESSMENT DEPRESSION ASSESSMENT [facility] Start: 03-10-2018 HEMOGLOBIN/HEMATOCRIT HEMOGLOBIN/HEMATOCRIT [facility] Start: 06-11-2017 SERUM CREATININE SERUM CREATININE [facility] Start: 2017 RSV Vaccine (1 - 1-dose 60+ series) RSV Vaccine (1 - 1-dose 60+ series) [facility] Start: 02-06-2015 DIABETES SCREEN DIABETES SCREEN [facility] Start: 2007 SHINGRIX VACCINE (1 of 2) SHINGRIX VACCINE (1 of 2) [facility] Start: 2002 COLOGUARD (FIT-DNA) COLOGUARD (FIT-DNA) [facility] Start: 2002 Colonoscopy COLONOSCOPY [facility] Start: 2002 COLORECTAL CANCER SCREENING COLORECTAL CANCER SCREENING [facility] Start: [address] COLONOGRAPHY [facility] Start: 2002 FECAL OCCULT BLOOD FECAL OCCULT BLOOD [facility] Start: 2002 Screening for malignant neoplasm of colon [facility] Start: 2002 SIGMOIDOSCOPY SIGMOIDOSCOPY [facility] Start: 1976 Hepatitis A Vaccine (1 of 2 - Risk 2-dose series) Hepatitis A Vaccine (1 of 2 - Risk 2-dose series) [facility] Start: 1976 SHINGRIX VACCINE (1 of 2) SHINGRIX VACCINE (1 of 2) [facility] Start: 1976 Urine microalbumin profile [facility] Start: 1975 ANNUAL PCP TEAM CHRONIC DISEASE VISIT ANNUAL PCP TEAM CHRONIC DISEASE VISIT [facility] Start: 1969 Adult depression screening assessment DEPRESSION SCREENING [facility] Start: 1963 PNEUMOCOCCAL (1 - PCV) PNEUMOCOCCAL (1 - PCV) [facility] Start: 1963 Pneumococcal Vaccine: 65+ (1 - PCV) Pneumococcal Vaccine: 65+ (1 - PCV) [facility] Start: 1963 Pneumococcal Vaccine: 65+ (1 of 2 - PCV) Pneumococcal Vaccine: 65+ (1 of 2 - PCV) [facility] Start: 1963 PNEUMOCOCCAL: 65+ (1 - PCV) PNEUMOCOCCAL: 65+ (1 - PCV) [facility] Start: 1962 COVID-19 VACCINE (#1) COVID-19 VACCINE (#1) [facility] Start: 1958 HEPATITIS A (1 of 2 - Risk 2-dose series) HEPATITIS A (1 of 2 - Risk 2-dose series) [facility] Start: 1957 COVID-19 VACCINE (#1) COVID-19 VACCINE (#1) [facility] End: 06-29-2024 CBC panel - Blood by Automated count CBC Lab Routine Kidney replaced by transplant Every 3 months for 4 Occurrences starting 06/30/2023 until 06/29/2024 [facility] Work Phone: Comment on above: Every 3 months for 4 Occurrences startin g 06/30/2023 until 06/29/2024 End: 06-29-2024 Comprehensive metabolic 2000 panel - Serum or Plasma COMP METABOLIC PANEL Lab Routine Kidney replaced by transplant Every 3 months for 4 Occurrences starting 06/30/2023 until 06/29/2024 [facility] Work Phone: Comment on above: Every 3 months for 4 Occurrences startin g 06/30/2023 until 06/29/2024 ECG COMPLETE [facility] Work Phone: Comment on above: Ordered: 11/10/2023 ECG COMPLETE [facility] Work Phone: Comment on above: Ordered: 01/15/2024 End: 06-29-2024 Magnesium [Mass/volume] in Serum or Plasma MAGNESIUM BLD Lab Routine Hypomagnesemia Every 3 months for 4 Occurrences starting 06/30/2023 until 06/29/2024 [facility] Work Phone: Comment on above: Every 3 months for 4 Occurrences startin g 06/30/2023 until 06/29/2024 End: 10-19-2023 Mri pelvis w/o & w/contrast material MRI PROSTATE WO/W IVCON Radiology Routine Encounter for observation for other suspected diseases and conditions ruled out 1 Occurrences starting 09/19/2022 until 10/19/2023 [facility] Work Phone: Comment on above: 1 Occurrences starting 09/19/2022 until 10/19/2023 End: 12-09-2024 NM Heart Perfusion W stress and W radionuclide IV NM CARDIAC PERF STRESS/PHARM Radiology Routine Persistent atrial fibrillation (HCC) Abnormal EKG 1 Occurrences starting 11/10/2023 until 12/09/2024 [facility] Work Phone: Comment on above: 1 Occurrences starting 11/10/2023 until 12/09/2024 NM Heart Perfusion W stress and W radionuclide IV NM CARDIAC PERF STRESS/PHARM Radiology Routine Persistent atrial fibrillation (HCC) Abnormal EKG 12/26/2023 12:51 PM EDT [facility] Work Phone: End: 06-29-2024 Phosphate [Mass/volume] in Serum or Plasma PHOSPHORUS INORGANIC Lab Routine Hypophosphatemia Every 3 months for 4 Occurrences starting 06/30/2023 until 06/29/2024 [facility] Work Phone: Comment on above: Every 3 months for 4 Occurrences startin g 06/30/2023 until 06/29/2024 PROSTATE BIOPSY GUKI PROSTATE BI OPSY GUKI Procedures Routine Encounter for observation for other suspected diseases and conditions ruled out Ordered: 09/19/2022 [facility] Work Phone: Comment on above: Ordered: 09/19/2022 SURGICAL PATHOLOGY SURGICAL PATH OLOGY Lab Routine Elevated PSA 10/17/2022 9:23 AM EST [facility] Work Phone: End: 06-29-2024 Tacrolimus [Mass/volume] in Blood TACROLIMUS/FK-506 BL Lab Routine Kidney replaced by transplant Every 3 months for 4 Occurrences starting 06/30/2023 until 06/29/2024 [facility] Work Phone: Comment on above: Every 3 months for 4 Occurrences startin g 06/30/2023 until 06/29/2024 [facility] Immunizations Immunization Date Immunization Notes Care Provider [facility] 07-01-2022 influenza, high-dose , quadrivalent vaccine (FLUZONE HIGH DOSE QUADRIVALENT) Usman Lowry APRN.CNP Work Phone: [facility] 07-01-2022 influenza virus vacc ine, unspecified formulation Usman Lowry APRN.CNP Work Phone: [facility] 07-05-2021 influenza, injectabl e, quadrivalent, contains preservative Usman LYNN Work Phone: [facility] 07-03-2020 influenza, injectabl e, quadrivalent, contains preservative Usman LYNN Work Phone: [facility] 07-05-2019 influenza, injectabl e, quadrivalent, contains preservative Usman LYNN Work Phone: [facility] 05-09-2016 influenza virus vacc ine, unspecified formulation Usman LYNN Work Phone: [facility] 06-21-2010 influenza virus vacc ine, unspecified formulation Usman LYNN Work Phone: [facility] 07-13-2009 influenza virus vacc ine, unspecified formulation Usman LYNN Work Phone: [facility] 07-13-2009 novel influenza-H1N1 -09, all formulations Usman LYNN Work Phone: [facility] 02-07-2009 pneumococcal conjuga te vaccine, 7 valent Usman LYNN Work Phone: [facility] Payers Date Payer Category Payer Medicare MEDICARE MEDICAR E A AND B [id number] 2022-Present [phone] [address] [address] [place] [address] Medicare [id number] 2022 Medicare [id number] 2022 Unknown [id number] 2021 Unknown [id number] 2019 Private Health Insurance [facility] CHOICE PLUS [id number] 2019-Present [phone] [address] [place] [address] [facility] [id number] 1959 Private Health Insurance [id number] 1959 Self-pay 1957 Unknown [id number] 1957 Unknown [id number] 1957 Unknown [id number] Social History Date Type Detail Facility Start: 05-27-2011 Tobacco smoking stat us NHIS Never smoked tobacco [facility] Work Phone: Start: 07-05-2021 End: 01-15-2024 Alcohol intake Current non-drinker of alcohol (finding) [facility] Start: 01-23-2009 History SDOH Alcohol Comment no alcohol > 2 yrs, no previous hx of abuse [facility] Start: 1955 Sex Assigned At Male C [facility] Start: 01-06-2022 End: 07-01-2022 Exposure to SARS-CoV-2 (event) Not sure [facility] Start: 05-27-2011 Tobacco use and exposure Smokeless tobacco non-user [facility] Start: 09-16-2022 End: 09-20-2022 History of Social function [facility] Start: 09-16-2022 End: 09-20-2022 Tobacco use panel [facility] National Score (1-10 0), lower number is lower risk 62 [facility] Start: 01-25-2022 Gender identity Identifies as male gender (finding) [facility] Start: 01-25-2022 Sexual orientation Heterosexual (thierry davis) [facility] Medical Equipment Procedure Code Equipment Code Equipment Origin al Text Equipment Identifier Dates Mesh Srg Pco Opt im 8x6in - [id number] Start: 02-05-2012 Comment on above: Description: Optimiz ed Composite mesh Goals Date Patient Goal Desired Activity /State Personal health goal Clinical Notes 07-27-2021 to 03-06-2024 Telephone Encounter - Stiestelaert Pss, Karlene - 01/21/2024 8:39 PM EDTTelephone Encounter - Stiebert Pss, Karlene - 01/21/2024 8:39 PM EDTTelephone Encounter - Stiebert Pss, Karlene 01/21/2024 8:39 PM EDT Note Date & Type Note Facility 03-06-2024 Note HNO ID: [id number] Author: ?, ?, ? Service: ? Author Type: ? Type: Plan of Care Filed: 03/09/2024 15:44 Note Text: PHARMACY BEDSIDE DELIVERY SERVICE Patient Name: Link Rosen The marked outpatient medications were filled at [facility] pharmacy and picked up at the pharmacy by HIMSELF. Medication List START taking these medications sucralfate 1 gram tablet Commonly known as: CARAFATE Take 1 tablet by mouth before meals and at bedtime. only for 30 days, then discontinue there after CONTINUE taking these medications CALCIUM + D ORAL gabapentin 300 mg capsule Commonly known as: NEURONTIN metoprolol tartrate (short acting) 25 mg tablet Commonly known as: LOPRESSOR Take 1.5 tablets by mouth two times a day. mycophenolate mofetil 250 mg capsule Commonly known as: CELLCEPT Take 2 capsules by mouth two times a day. predniSONE 5 mg tablet Commonly known as: DELTASONE take 1 tablet by mouth once daily sulfamethoxazole-trimethoprim 400-80 mg per tablet Commonly known as: BACTRIM take 1 tablet by mouth once daily tacrolimus IR 1 mg capsule Commonly known as: PROGRAF Take(1) capsule by mouth twice daily XARELTO 20 mg tablet Generic drug: rivaroxaban Take 1 tablet by mouth daily with dinner. You might also be taking other medications not listed above. If you have questions about any of your other medications, talk to the person who prescribed them or your Primary Care Provider. STOP taking these medications aspirin 81 mg chewable tablet Radha Her PAGER: [id number] March 09, 2024 3:43 PM [facility] 03-05-2024 Note HNO ID: [id number] Author: BARBARA AZUL AA Service: ? Author Type: Buhr Dresser Type: Anesthesia Procedure Notes Filed: 03/05/2024 14:04 Note Text: ANESTHESIOLOGY PROCEDURE NOTE Airway General Information Procedure Start Time/Medication Administration: 03/05/2024 1:40 PM Procedure End Time: 03/05/2024 1:41 PM Patient location during procedure: OR Patient identity confirmed: arm band Staffing CAA: Barbara Azul AA Performed by: THAD Indications and Patient Condition Indications for airway management: anesthesia Preoxygenated: yes anesthesia circuit Method: sleep Difficult Mask: No Final Airway Details Final airway type: endotracheal airway Final Endotracheal Airway: ETT Cuffed: yes Successful intubation technique: video laryngoscopy Devices used: Foodoro Endotracheal tube insertion site: oral Blade: Alejandro Blade size: #4 ETT size (mm): 8.0 Measured from: lips Measurement (cm): 25 Placement verified by: chest auscultation and capnometry Cormack-Lehane Classification: grade I - full view of glottis Number of attempts at approach: 1 Airway not difficult Comments Easy mask vent with large OA and two person technique. Grade 1 view, ETT secured with tape and tube tie SIGNATURE: CHERY Goode PATIENT NAME: Link Rosen DATE: March 05, 2024 TIME: 2:03 PM CSN: [id number] [facility] 01-21-2024 Telephone encounter Note Called and spoke to patient and scheduled his pvi ablation with Dr Pablo for February 10 at [facility]. Patient given instructions and sent mychart. Folllow up scheduled. [facility] 01-21-2024 Telephone encounter Note ----- Message from MINDY May sent at 01/21/2024 12:16 PM EDT ----- Regarding: FW: PVI 02/10 ----- Message ----- From: Wei Pablo MD Sent: 01/15/2024 1:45 PM EDT To: MINDY May; Karlene Mondragon; # Subject: PVI Dot phrase for pVI. He would prefer to be 2nd round- He lives in [place] ( more [address] ). [facility] EPS Lab Request: EPS Patient: Link Rosen Requested by Wei Pablo MD Requesting Physician: Dr Michael Scott Procedure Physician: Wei Pablo MD Procedure Requested: AFIB CPT:41139 Anesthesia type: General Date of Last H&P? 01/2024 Indications / Dx for Procedure: A-Fib Procedure Time Frame: 3-4 weeks Estimated length of case: 2 HOURS Mapping System: [employer] ([place]) Special Needs: ICE (intracardiac echo), enso etm esophageal cooling Potential Research Patient? No Type of bed needed? OVERNIGHT Medication to be stopped(please specify medication/timeframe): No [facility] 01-21-2024 Miscellaneous Notes Called and spoke to patient and scheduled his pvi ablation with Dr Pablo for February 10 at [facility]. Patient given instructions and sent mychart. Folllow up scheduled. ----- Message from MINDY May sent at 01/21/2024 12:16 PM EDT ----- Regarding: FW: PVI 02/10 ----- Message ----- From: Wei Pablo MD Sent: 01/15/2024 1:45 PM EDT To: MINDY May; Karlene Mondragon; # Subject: PVI Dot phrase for pVI. He would prefer to be 2nd round- He lives in [place] ( more [address] [facility] EPS Lab Request: EPS Patient: Link Rosen Requested by Wei Pablo MD Requesting Physician: Dr Michael Scott Procedure Physician: Wei Pablo MD Procedure Requested: AFIB CPT:92871 Anesthesia type: General Date of Last H&P? 01/2024 Indications / Dx for Procedure: A-Fib Procedure Time Frame: 3-4 weeks Estimated length of case: 2 HOURS Mapping System: [employer] (CARTO) Special Needs: ICE (intracardiac echo), enso etm esophageal cooling Potential Research Patient? No Type of bed needed? OVERNIGHT Medication to be stopped(please specify medication/timeframe): No documented in this encounter [facility] 01-15-2024 Note HNO ID: [id number] Author: WEI PABLO MD Service: ? Author Type: Physician Type: Progress Notes Filed: 01/15/2024 13:46 Note Text: [facility] SECTION OF REGIONAL CARDIOLOGY OUTPATIENT VISIT DATE January 15, 2024 OUTPATIENT VISIT TYPE NEW PRIMARY CARE PHYSICIAN: [facility]ke[facility] [place] [address] A written report of the findings and recommendations will be sent to the requesting provider via shared medical record or via [employer]PS. Patient is being seen at the request of Dr Scott for Afib HISTORY OF PRESENT ILLNESS: Mr. Rosen is a 68 year old male who lives in [place] with HTN, Polycystic kidney s/p renal transplant. Noted with new onset AF on recent office visit ( 09/2023)with RVR. Symptoms of exertional palpitation. Currently on metoprolol and Xarelto. Underwent DCCV into sinus rhythm in 11/05/23. However he reverted back into AF with associated symptoms again. IMPRESSION: Persistent AF: Refractory to DCCV with early recurrence. KIESHA 36 with moderate LV dysfunction ( LVEF 45%) in the setting of AF. He could not get stress test done due to high heart rates . Given LV dysfunction, s/p renal transplant on anti-rejection meds, CKD, he has limited AAD options ( low EF would preclude class 1C drug; tacrolimus use precludes most class III use given drug-drug interaction) it is reasonable to consider afib ablation as the next step. Risk and benefits discussed and he is agreeable to proceed. CKD S/p renal transplant. NICM: Likley tachy mediated. Clinically euvolemic. For afib ablation as above. PLAN AND RECOMMENDATIONS: Persistent AF: Refractory to DCCV with early recurrence. KIESHA 36 with moderate LV dysfunction ( LVEF 45%) in the setting of AF. He could not get stress test done due to high heart rates . Given LV dysfunction, s/p renal transplant on anti-rejection meds, CKD, he has limited AAD options ( low EF would preclude class 1C drug; tacrolimus use precludes most class III use given drug-drug interaction) it is reasonable to consider afib ablation as the next step. Risk and benefits discussed and he is agreeable to proceed. CKD S/p renal transplant. NICM: Likley tachy mediated. Clinically euvolemic. For afib ablation as above. REVIEW OF SYSTEMS: Chest pain No Shortness of breath No Bleeding No Dizziness No Syncope No Palpations No 10 systems reviewed and are negative with the exception of pertinent positives described in HPI PHYSICAL EXAMINATION: There were no vitals taken for this visit. HEENT: normocephalic, EOMI Heart: regular rhythm Lungs: clear to auscultation Abdomen: bowel sounds present Extremities: no edema Musculoskeletal: chest wall nontender Neurological: alert and oriented Psychiatric: appropriate and cooperative Skin: no rash, cellulitis or lesions appreciated CARDIOVASCULAR MEDICINE TESTING: I have personally reviewed ECG Last ECHO Result Conclusion ECHO Collected: 10/31/2023 10:23 AM (Final result) Impression: CONCLUSIONS: - Technically difficult exam due to body habitus and suboptimal positioning. - Exam indication: Pre-op Cardioversion - The left ventricle is normal in size. Left ventricular systolic function is mildly decreased. EF = 45 ? 5% (visual est.) Definity contrast used for endocardial border detection. Left ventricular diastolic function was not evaluated due to AF. - The right ventricle is normal in size. Right ventricular systolic function is normal. - The left atrial cavity is mildly dilated. - The visualized aorta is dilated with a maximal dimension of 4.9 cm. -Difficult exam due to frequent patient movement due to back spasms. -Difficult definity imaging. - The patient has not had a prior CC echocardiographic exam for comparison. * * * Final * * * Last EKG Result Conclusion ECG COMPLETE Collected: 12/26/2023 1:27 PM (Final result) Impression: ATRIAL FIBRILLATION WITH RAPID VENTRICULAR RESPONSE Confirmed by KODAK GRIGGS MDNY ([id number]) on 12/26/2023 6:35:59 PM PAST CARDIAC HISTORY: See below PAST MEDICAL HISTORY Diagnosis Date Coronary atherosclerosis of unspecified type of vessel, seminole or graft Mild 3-vessel Coronary artery disease [...] no previous hx of abuse Drug use: (more content not included)... [facility] 01-15-2024 History of Present illness Narrative Images from the original note were not included. [facility] SECTION OF [facility]IONAL CARDIOLOGY OUTPATIENT VISIT DATE January 15, 2024 OUTPATIENT VISIT TYPE NEW PRIMARY CARE PHYSICIAN: Kathleen [place] [address] A written report of the findings and recommendations will be sent to the requesting provider via shared medical record or via [employer]PS. Patient is being seen at the request of Dr Scott for Afib HISTORY OF PRESENT ILLNESS: Mr. Rosen is a 68 year old male who lives in [place] with HTN, Polycystic kidney s/p renal transplant. Noted with new onset AF on recent office visit ( 09/2023)with RVR. Symptoms of exertional palpitation. Currently on metoprolol and Xarelto. Underwent DCCV into sinus rhythm in 11/05/23. However he reverted back into AF with associated symptoms again. IMPRESSION: Persistent AF: Refractory to DCCV with early recurrence. KIESHA 36 with moderate LV dysfunction ( LVEF 45%) in the setting of AF. He could not get stress test done due to high heart rates . Given LV dysfunction, s/p renal transplant on anti-rejection meds, CKD, he has limited AAD options ( low EF would preclude class 1C drug; tacrolimus use precludes most class III use given drug-drug interaction) it is reasonable to consider afib ablation as the next step. Risk and benefits discussed and he is agreeable to proceed. CKD S/p renal transplant. NICM: Alekley tachy mediated. Clinically euvolemic. For afib ablation as above. PLAN AND RECOMMENDATIONS: Persistent AF: Refractory to DCCV with early recurrence. KIESHA 36 with moderate LV dysfunction ( LVEF 45%) in the setting of AF. He could not get stress test done due to high heart rates . Given LV dysfunction, s/p renal transplant on anti-rejection meds, CKD, he has limited AAD options ( low EF would preclude class 1C drug; tacrolimus use precludes most class III use given drug-drug interaction) it is reasonable to consider afib ablation as the next step. Risk and benefits discussed and he is agreeable to proceed. CKD S/p renal transplant. NICM: Likley tachy mediated. Clinically euvolemic. For afib ablation as above. REVIEW OF SYSTEMS: Chest pain No Shortness of breath No Bleeding No Dizziness No Syncope No Palpations No 10 systems reviewed and are negative with the exception of pertinent positives described in HPI PHYSICAL EXAMINATION: There were no vitals taken for this visit. HEENT: normocephalic, EOMI Heart: regular rhythm Lungs: clear to auscultation Abdomen: bowel sounds present Extremities: no edema Musculoskeletal: chest wall nontender Neurological: alert and oriented Psychiatric: appropriate and cooperative Skin: no rash, cellulitis or lesions appreciated CARDIOVASCULAR MEDICINE TESTING: I have personally reviewed ECG Last ECHO Result Conclusion ECHO Collected: 10/31/2023 10:23 AM (Final result) Impression: CONCLUSIONS: - Technically difficult exam due to body habitus and suboptimal positioning. - Exam indication: Pre-op Cardioversion - The left ventricle is normal in size. Left ventricular systolic function is mildly decreased. EF = 45 5% (visual est.) Definity contrast used for endocardial border detection. Left ventricular diastolic function was not evaluated due to AF. - The right ventricle is normal in size. Right ventricular systolic function is normal. - The left atrial cavity is mildly dilated. - The visualized aorta is dilated with a maximal dimension of 4.9 cm. -Difficult exam due to frequent patient movement due to back spasms. -Difficult definity imaging. - The patient has not had a prior CC echocardiographic exam for comparison. * * * Final * * * Last EKG Result Conclusion ECG COMPLETE Collected: 12/26/2023 1:27 PM (Final result) Impression: ATRIAL FIBRILLATION WITH RAPID VENTRICULAR RESPONSE Confirmed by ANSON PATTERSON, [facility] ([id number]) on 12/26/2023 6:35:59 PM PAST CARDIAC HISTORY: See below PAST MEDICAL HISTORY Diagnosis Date Coronary atherosclerosis of unspecified type of vessel, seminole or graft Mild 3-vessel Coronary artery disease [...] previous hx of abuse Drug use: No FAMILY HISTORY Problem Relation Age of Onset other (Polycystic Kidney [Other]) Mother other (Polycystic Kidney [Other]) Brother other (CVA [Other]) Father Emphysema Father ALLERGIES No Known Allergies CURRENT MEDICATIONS: mycophenolate mofetil (CELLCEPT) 250 mg capsule Take 2 capsules by mouth two times a day. metoprolol tartrate, short acting, (LOPRESSOR) 25 mg tablet Take 1.5 tablets by mouth two times a day. rivaroxaban (XARELTO) 20 mg tablet Take 1 tablet by mouth daily with dinner. tacrolimus IR (PROGRAF) 1 mg capsule Take(1) capsule by mouth twice daily predniSONE (DELTASONE) 5 mg tablet take 1 tablet by mouth once daily sulfamethoxazole-trimethoprim (BACTRIM) 400-80 mg per tablet take 1 tablet by mouth once daily gabapentin (NEURONTIN) 300 mg capsule Take 300 mg by mouth twice daily. CALCIUM CARBONATE/VITAMIN D3 (CALCIUM + D ORAL) Take one(1) tablet two(2) times daily. ASPIRIN 81 MG CHEWABLE TAB 1 Tab ORAL DAILY (Patient not taking: Reported on 11/10/2023) documented in this encounter [facility] 12-26-2023 History of Present illness Narrative RADIOLOGY SERVICE PROGRESS NOTE SERVICE DATE: 12/26/2023 SERVICE TIME: 12:52 PM PATIENT IDENTITY VERIFICATION COMPLETED USING TWO (2) STANDARD IDENTIFIERS: Name and Date of confirmed by patient verbally FALL SCREENING: Has the patient had 2 falls in the last year or 1 fall with injury or currently using an Ambulatory Assistive Device (Walker, Cane, Wheelchair, Crutches, etc.)? No PATIENT GENDER DATA: .male ALLERGIES: Reviewed and unchanged MEDICATIONS REVIEWED: No PATIENT RELEVANT IMPLANT DATA REVIEWED: Not Applicable PATIENT PRESENTS WITH AN IMPLANTABLE OR ATTACHED REMOTE MORTGAGE UNDERWRITER: No CREATININE: Creatinine Date Value Ref Range Status 12/02/2023 1.36 (H) 0.73 - 1.22 mg/dL Final 11/03/2023 1.28 (H) 0.73 - 1.22 mg/dL Final 09/02/2023 1.55 (H) 0.73 - 1.22 mg/dL Final Estimated Glomerular Filtration Rate Date Value Ref Range Status 12/02/2023 57 (L) >=60 mL/min/1.73m Final Comment: Estimated Glomerular Filtration Rate (eGFR) is calculated using the 2020 CKD-EPI creatinine equation. This equation utilizes serum creatinine, sex, and age as parameters. The creatinine assay has traceable calibration to isotope dilution-mass spectrometry. Refer to KDIGO guidelines for clinical interpretation. In patients with unstable renal function, e.g. those with acute kidney injury, the eGFR may not accurately reflect actual GFR. eGFR- Date Value Ref Range Status 06/11/2016 >60 Final P.O.C.T. RESULTS: N/A December 26, [address] PERFORMED: No IV SITE: Ambulatory: A peripheral IV was started in the Left hand with a Angio cath: 24 gauge. POST EXAM PIV STATUS: Discontinued PROCEDURE TYPE: NM Stress: 16mCi [id number] was administered IV for Rest Imaging at 1244 by Suzette Barr . RADIOLOGY SERVICE PROGRESS NOTE DATE OF SERVICE: December 26, 2023 TIME OF SERVICE: 1350 EVENT: EXAM/PROCEDURE NOT COMPLETED - pt had severe left shoulder pain unable to keep arms up and with size wouldn't be able to image with arms down , also high heart rate due to afib. will be rescheduled at [facility] and told to take meds NO Images obtained ADDITIONAL EVENT DETAILS: N/A SIGNATURE: Suzette Barr PATIENT NAME: Link Rosen DATE: December 26, 2023 TIME: 1:53 PM PAGER/CONTACT #: A Diagnostic radioactive procedure has taken place, with no further precautions necessary other than routine body substance precautions. More information regarding radiation safety can be found using this link: [email or web address] [email or web address] SIGNATURE: Suzette Barr PATIENT NAME: Link Rosen DATE: December 26, 2023 TIME: 12:52 PM PAGER/CONTACT #: documented in this encounter [facility] 12-26-2023 Note HNO ID: [id number] Author: TEQUILA JORDAN Nuclear Tech Service: ? Author Type: Director Public Service Type: Progress Notes Filed: 12/26/2023 13:54 Note Text: RADIOLOGY SERVICE PROGRESS NOTE SERVICE DATE: 12/26/2023 SERVICE TIME: 12:52 PM PATIENT IDENTITY VERIFICATION COMPLETED USING TWO (2) STANDARD IDENTIFIERS: Name and Date of confirmed by patient verbally FALL SCREENING: Has the patient had 2 falls in the last year or 1 fall with injury or currently using an Ambulatory Assistive Device (Walker, Cane, Wheelchair, Crutches, etc.)? No PATIENT GENDER DATA: .male ALLERGIES: Reviewed and unchanged MEDICATIONS REVIEWED: No PATIENT RELEVANT IMPLANT DATA REVIEWED: Not Applicable PATIENT PRESENTS WITH AN IMPLANTABLE OR ATTACHED REMOTE MORTGAGE UNDERWRITER: No CREATININE: Creatinine Date Value Ref Range Status 12/02/2023 1.36 (H) 0.73 - 1.22 mg/dL Final 11/03/2023 1.28 (H) 0.73 - 1.22 mg/dL Final 09/02/2023 1.55 (H) 0.73 - 1.22 mg/dL Final Estimated Glomerular Filtration Rate Date Value Ref Range Status 12/02/2023 57 (L) >=60 mL/min/1.73m? Final Comment: Estimated Glomerular Filtration Rate (eGFR) is calculated using the 2020 CKD-EPI creatinine equation. This equation utilizes serum creatinine, sex, and age as parameters. The creatinine assay has traceable calibration to isotope dilution-mass spectrometry. Refer to KDIGO guidelines for clinical interpretation. In patients with unstable renal function, e.g. those with acute kidney injury, the eGFR may not accurately reflect actual GFR. eGFR- Date Value Ref Range Status 06/11/2016 >60 Final P.O.C.T. RESULTS: N/A December 26, [address] PERFORMED: No IV SITE: Ambulatory: A peripheral IV was started in the Left hand with a Angio cath: 24 gauge. POST EXAM PIV STATUS: Discontinued PROCEDURE TYPE: NM Stress: 16mCi [id number] was administered IV for Rest Imaging at 1244 by Suzette Barr . RADIOLOGY SERVICE PROGRESS NOTE DATE OF SERVICE: December 26, 2023 TIME OF SERVICE: 1350 EVENT: EXAM/PROCEDURE NOT COMPLETED - pt had severe left shoulder pain unable to keep arms up and with size wouldn't be able to image with arms down , also high heart rate due to afib. will be rescheduled at [facility] and told to take meds NO Images obtained ADDITIONAL EVENT DETAILS: N/A SIGNATURE: Suzette Barr PATIENT NAME: Link Rosen DATE: December 26, 2023 TIME: 1:53 PM PAGER/CONTACT #: A Diagnostic radioactive procedure has taken place, with no further precautions necessary other than routine body substance precautions. More information regarding radiation safety can be found using this link: [email or web address] 20Diagnostic%20Nuclear%[email or web address] [email or web address] SIGNATURE: Suzette Barr PATIENT NAME: Link Rosen DATE: December 26, 2023 TIME: 12:52 PM PAGER/CONTACT #: [facility] 12-26-2023 Nurse Note Pt presented for nuclear medicine stress. Upon hooking patient up to three lead monitor for nuclear camera, PURIFICATION OPERATOR Tequila noticed that pt's HR was jumping from 120-150s. Obtained 12 lead EKG, found that patient was in afib RVR. Verified medications with patient, no missed doses of OAC, had held metoprolol since Friday night. Advised him to take metoprolol immediately, states that he has his dose in the car. Spoke with supervising physician, Dr. Wolfe, who stated to cancel patient test. Patient updated with plan of care. Offered ED, patient declined. Patient ambulated off unit without assistance. Ordering physician, Dr. Scott, notified via secure chat. documented in this encounter [facility] 11-26-2023 Miscellaneous Notes The following approved medication requests have been transmitted electronically. Requested Prescriptions Pending Prescriptions Disp Refills mycophenolate mofetil (CELLCEPT) 250 mg capsule 360 capsule 3 Sig: Take 2 capsules by mouth two times a day. Usman Lowry APRN.CNP Patient's request for medication is as follows: Requested Prescriptions Pending Prescriptions Disp Refills mycophenolate mofetil (CELLCEPT) 250 mg capsule 360 capsule 3 Sig: Take 2 capsules by mouth two times a day. Please approve the above prescription(s) to electronically send to pharmacy. MINDY Kaur documented in this encounter [facility] 11-23-2023 Miscellaneous Notes The following approved medication requests have been transmitted electronically. Requested Prescriptions Signed Prescriptions Disp Refills mycophenolate mofetil (CELLCEPT) 250 mg capsule 360 capsule 3 Sig: Take 2 capsules by mouth two times a day. Authorizing Provider: USMAN LOWRY APRN.CNP The following approved medication requests have been transmitted electronically to the mail order pharmacy. Requested Prescriptions Pending Prescriptions Disp Refills mycophenolate mofetil (CELLCEPT) 250 mg capsule 360 capsule 3 Sig: Take 2 capsules by mouth two times a day. MINDY Kaur documented in this encounter [facility] 11-10-2023 History of Present illness Narrative Images from the original note were not included. [facility] SECTION OF REGIONAL CARDIOLOGY OUTPATIENT VISIT DATE November 10, 2023 OUTPATIENT VISIT TYPE Established PRIMARY CARE PHYSICIAN: [place] [address] REFERRING PHYSICIAN: Usman Lowry [id number] [facility] [id number] C/C: Follow-up for atrial fibrillation Last and initial visit with me September 2023 HISTORY OF PRESENT ILLNESS: Mr. Rosen is a 68 year old male, seen in clinic today for follow-up for atrial fibrillation His last and initial visit with me, noted to be in atrial fibrillation of unknown duration. That was his first diagnosis. Status post DCCV November 05, 2023. Echocardiogram October 31, 2023-LVEF mildly decreased at 45%, RV normal size and function, dilated aorta at 4.9 cm. Today, He denies any new symptoms. It appears that he is back into atrial fibrillation, but denies any specific limitations Denies any bleeding complications. He does all house work, does leg exercises on floor/bed. Denies any significant symptoms, except occasional palpitations. Denies any upcoming procedures, denies any bleeding complications. Otherwise he denies any recurrent chest pain, shortness of breath, leg swelling and symptoms consistent with orthopnea and/or PND. Denies any symptoms consistent with claudication. 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 Never smoker. REVIEW OF SYSTEMS: 10 systems reviewed and are negative with the exception of pertinent positives described in HPI PHYSICAL EXAMINATION: BP 130/80 Pulse 84 Wt (!) 173.6 kg (382 lb 11.5 oz) BMI 38.26 kg/m General: No acute distress, appears comfortable HEENT: no bruits, no JVD Pulmonary/chest: CTA b/L. No chest wall tenderness/venous engorgments CVS: Irregularly irregular rhythm, normal rate. No murmurs/rubs or gallops. No JVD, no lower extremity edema. Central and peripheral pulses 2+ B/L, no carotid or abdominal bruits. Abdomen: Soft, non-tender, non-distended. Bowel sounds normal Extremities: No peripheral edema/varicosities Skin: No rashes/ulcers, warm and pink Neuro: AAOx4 Psych: Normal mood and affect CARDIOVASCULAR MEDICINE TESTING: I have personally reviewed EKG: Atrial fibrillation, 84 bpm, LAFB, possible anterolateral infarct, age indeterminant. PAST MEDICAL HISTORY Diagnosis Date Coronary atherosclerosis of unspecified type of vessel, seminole or graft Mild 3-vessel Coronary artery disease Hypertension Polycystic kidney, unspecified type 1993 S/p cadaver renal transplant Umbilical hernia PAST SURGICAL HISTORY Procedure Laterality Date LAPAROSCOPY REPAIR INCISIONAL HERNIA REDUCIBLE 2001 umbilical PAST SURGICAL HISTORY OF 07/27/07 Colon Polypectomy- Tubular Adenoma PAST SURGICAL HISTORY OF 10/17 Placement of Left UE AVF x 2 TONSILLECTOMY PRIMARY/SECONDARY <AGE 14 Tonsillectomy SOCIAL HISTORY Social History Tobacco Use Smoking status: Never Smokeless tobacco: Never Substance Use Topics Alcohol use: No Comment: no alcohol > 2 yrs, no previous hx of abuse Drug use: No FAMILY HISTORY Problem Relation Age of Onset other (Polycystic Kidney [Other]) Mother other (Polycystic Kidney [Other]) Brother other (CVA [Other]) Father Emphysema Father ALLERGIES: ALLERGIES No Known Allergies CURRENT MEDICATIONS: metoprolol tartrate, short acting, (LOPRESSOR) 25 mg tablet Take 1 tablet by mouth two times a day. rivaroxaban (XARELTO) 20 mg tablet Take 1 tablet by mouth daily with dinner. tacrolimus IR (PROGRAF) 1 mg capsule Take(1) capsule by mouth twice daily mycophenolate mofetil (CELLCEPT) 250 mg capsule take 2 capsules by mouth twice a day predniSONE (DELTASONE) 5 mg tablet take 1 tablet by mouth once daily sulfamethoxazole-trimethoprim (BACTRIM) 400-80 mg per tablet take 1 tablet by mouth once daily gabapentin (NEURONTIN) 300 mg capsule Take 300 mg by mouth twice daily. CALCIUM CARBONATE/VITAMIN D3 (CALCIUM + D ORAL) Take one(1) tablet two(2) times daily. ASPIRIN 81 MG CHEWABLE TAB 1 Tab ORAL DAILY (Patient not taking: Reported on 11/10/2023) IMPRESSION/PLAN AND RECOMMENDATIONS: Persistent atrial fibrillation, was diagnosed in Jun 2023. Status post DCCV November 05, 2023, with recurrence of atrial fibrillation post DCCV. Regular rate is controlled. overall no specific symptoms except occasional palpitations. Echocardiogram did show mild decline in LVEF at around 45% [id number] score of 2, primarily with history of hypertension and age. Intermediate risk of thromboembolism. Currently tolerating anticoagulation without any bleeding complications Thoracic aortic aneurysm, maximum dimension mention that 4.9 cm by echocardiogram. However, echocardiogram reviewed, image quality is too poor for accurate quantitation of the aorta. We re-discussed diagnosis of atrial fibrillation, different treatment approaches to A-fib. Crease metoprolol to tartrate to 37.5 mg twice daily Continue Xarelto 20 mg daily Pharmacologic stress SPECT to rule out any obstructive coronary artery disease given borderline low LVEF. If no evidence of obstructive coronary artery disease, EP evaluation for further opinion on rhythm control We discussed a CTA to reassess TAA, but given CKD with renal transplant status, will hold off on this at this time. Will reevaluate with echocardiogram in about 6 months. Hopefully can take a better look at the aorta. Follow-up in 4 to 5 months Emanuel Scott MD documented in this encounter [facility] 11-10-2023 Note HNO ID: [id number] Author: EMANUEL SCOTT MD Service: ? Author Type: Physician Type: Progress Notes Filed: 11/10/2023 12:49 Note Text: [facility] SECTION OF REGIONAL CARDIOLOGY OUTPATIENT VISIT DATE November 10, 2023 OUTPATIENT VISIT TYPE Established PRIMARY CARE PHYSICIAN: Kathleen Sams [address] [place] [address] REFERRING PHYSICIAN: Usman Lowry [address] [facility] [id number] C/C: Follow-up for atrial fibrillation Last and initial visit with [place] September 2023 HISTORY OF PRESENT ILLNESS: Mr. Rosen is a 68 year old male, seen in clinic today for follow-up for atrial fibrillation His last and initial visit with [place], noted to be in atrial fibrillation of unknown duration. That was his first diagnosis. Status post DCCV November 05, 2023. Echocardiogram October 31, 2023-LVEF mildly decreased at 45%, RV normal size and function, dilated aorta at 4.9 cm. Today, He denies any new symptoms. It appears that he is back into atrial fibrillation, but denies any specific limitations Denies any bleeding complications. He does all house work, does leg exercises on floor/bed. Denies any significant symptoms, except occasional palpitations. Denies any upcoming procedures, denies any bleeding complications. Otherwise he denies any recurrent chest pain, shortness of breath, leg swelling and symptoms consistent with orthopnea and/or PND. Denies any symptoms consistent with claudication. 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 Never smoker. REVIEW OF SYSTEMS: 10 systems reviewed and are negative with the exception of pertinent positives described in HPI PHYSICAL EXAMINATION: BP 130/80 Pulse 84 Wt (!) 173.6 kg (382 lb 11.5 oz) BMI 38.26 kg/m? General: No acute distress, appears comfortable HEENT: no bruits, no JVD Pulmonary/chest: CTA b/L. No chest wall tenderness/venous engorgments CVS: Irregularly irregular rhythm, normal rate. No murmurs/rubs or gallops. No JVD, no lower extremity edema. Central and peripheral pulses 2+ B/L, no carotid or abdominal bruits. Abdomen: Soft, non-tender, non-distended. Bowel sounds normal Extremities: No peripheral edema/varicosities Skin: No rashes/ulcers, warm and pink Neuro: AAOx4 Psych: Normal mood and affect CARDIOVASCULAR MEDICINE TESTING: I have personally reviewed EKG: Atrial fibrillation, 84 bpm, LAFB, possible anterolateral infarct, age indeterminant. PAST MEDICAL HISTORY Diagnosis Date Coronary atherosclerosis of unspecified type of vessel, seminole or graft Mild 3-vessel Coronary artery disease Hypertension Polycystic kidney, unspecified type 1993 S/p cadaver renal transplant Umbilical hernia PAST SURGICAL HISTORY Procedure Laterality Date LAPAROSCOPY REPAIR INCISIONAL HERNIA REDUCIBLE 2001 umbilical PAST SURGICAL HISTORY OF 07/27/07 Colon Polypectomy- Tubular Adenoma PAST SURGICAL HISTORY OF 10/17 Placement of Left UE AVF x 2 TONSILLECTOMY PRIMARY/SECONDARY Tonsillectomy SOCIAL HISTORY Social History Tobacco Use Smoking status: Never Smokeless tobacco: Never Substance Use Topics Alcohol use: No Comment: no alcohol > 2 yrs, no previous hx of abuse Drug use: No FAMILY HISTORY Problem Relation Age of Onset other (Polycystic Kidney [Other]) Mother other (Polycystic Kidney [Other]) Brother other (CVA [Other]) Father Emphysema Father ALLERGIES: ALLERGIES No Known Allergies CURRENT MEDICATIONS: metoprolol tartrate, short acting, (LOPRESSOR) 25 mg tablet Take 1 tablet by mouth two times a day. rivaroxaban (XARELTO) 20 mg tablet Take 1 tablet by mouth daily with dinner. tacrolimus IR (PROGRAF) 1 mg capsule Take(1) capsule by mouth twice daily mycophenolate mofetil (CELLCEPT) 250 mg capsule take 2 capsules by mouth twice a day predniSONE (DELTASONE) 5 mg tablet take 1 tablet by mouth once daily sulfamethoxazole-trimethoprim (BACTRIM) 400-80 mg per tablet take 1 tablet by mouth once daily gabapentin (NEURONTIN) 300 mg capsule Take 300 mg by mouth twice daily. CALCIUM CARBONATE/VITAMIN D3 (CALCIUM + D ORAL) Take one(1) tablet two(2) times daily. ASPIRIN 81 MG CHEWABLE TAB 1 Tab ORAL DAILY (Patient not taking: Reported on 11/10/2023) IMPRESSION/PLAN AND RECOMMENDATIONS: Persistent atrial fibrillation, was diagnosed in Jun 2023. Status post DCCV November 05, 2023, with recurrence of atrial fibrillation post DCCV. Regular rate is controlled. overall no specific symptoms except occasional palpitations. Echocardiogram did show mild decline in LVEF at around 45% [id number] score of 2, primarily with history of hypertension and age. Intermediate risk of thromboembolism. Currently tolerating anticoagulation without any bleeding complications Thoracic aortic aneurysm, maximum dimension mention that 4.9 cm by echocardiogram. Ho (more content not included)... [facility] 09-30-2023 Note HNO ID: [id number] Author: EMANUEL SCOTT MD Service: ? Author Type: Physician Type: Progress Notes Filed: 09/30/2023 08:47 Note Text: [facility]CTION OF [facility]IONAL CARDIOLOGY OUTPATIENT VISIT DATE September 30, 2023 OUTPATIENT VISIT TYPE NEW PRIMARY CARE PHYSICIAN: Kathleen Sams [address] [place] [id number] REFERRING PHYSICIAN: Usman Lowry [address] [facility] [address] Patient is being seen at the request of the referring HAIR MIXER for A-Fib My final recommendations will be communicated back to the requesting physician by way of the shared medical record. HISTORY OF PRESENT ILLNESS: Mr. Rosen is a 68 year old male, seen in clinic today for A-Fib noted for irregularity noted during physical exam and confirmed by EKG on Jun 2024. Not started on any medications. He does all house work, does leg exercises on floor/bed. Denies any significant symptoms, except occasional palpitations. Denies any upcoming procedures, denies any bleeding complications. Otherwise he denies any recurrent chest pain, shortness of breath, leg swelling and symptoms consistent with orthopnea and/or PND. Denies any symptoms consistent with claudication. 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 Never smoker. REVIEW OF SYSTEMS: 10 systems reviewed and are negative with the exception of pertinent positives described in HPI PHYSICAL EXAMINATION: BP 116/72 Pulse 113 Wt (!) 171.4 kg (377 lb 13.9 oz) BMI 37.65 kg/m? General: No acute distress, appears comfortable HEENT: no bruits, no JVD Pulmonary/chest: CTA b/L. No chest wall tenderness/venous engorgments CVS: Normal S1 and S2, Regular rhythm, normal rate. No murmurs/rubs or gallops. No JVD, no lower extremity edema. Central and peripheral pulses 2+ B/L, no carotid or abdominal bruits. Abdomen: Soft, non-tender, non-distended. Bowel sounds normal Extremities: No peripheral edema/varicosities Skin: No rashes/ulcers, warm and pink Neuro: AAOx4 Psych: Normal mood and affect CARDIOVASCULAR MEDICINE TESTING: I have personally reviewed EKG: Atrial fibrillation, ventricular rate 113 bpm. PAST MEDICAL HISTORY Diagnosis Date Coronary atherosclerosis of unspecified type of vessel, seminole or graft Mild 3-vessel Coronary artery disease Hypertension Polycystic kidney, unspecified type 1993 S/p cadaver renal transplant Umbilical hernia PAST SURGICAL HISTORY Procedure Laterality Date LAPAROSCOPY REPAIR INCISIONAL HERNIA REDUCIBLE 2001 umbilical PAST SURGICAL HISTORY OF 07/27/07 Colon Polypectomy- Tubular Adenoma PAST SURGICAL HISTORY OF 10/17 Placement of Left UE AVF x 2 TONSILLECTOMY PRIMARY/SECONDARY Tonsillectomy SOCIAL HISTORY Social History Tobacco Use Smoking status: Never Smokeless tobacco: Never Substance Use Topics Alcohol use: No Comment: no alcohol > 2 yrs, no previous hx of abuse Drug use: No FAMILY HISTORY Problem Relation Age of Onset other (Polycystic Kidney [Other]) Mother other (Polycystic Kidney [Other]) Brother other (CVA [Other]) Father Emphysema Father ALLERGIES: ALLERGIES No Known Allergies CURRENT MEDICATIONS: tacrolimus IR (PROGRAF) 1 mg capsule Take(1) capsule by mouth twice daily mycophenolate mofetil (CELLCEPT) 250 mg capsule take 2 capsules by mouth twice a day predniSONE (DELTASONE) 5 mg tablet take 1 tablet by mouth once daily sulfamethoxazole-trimethoprim (BACTRIM) 400-80 mg per tablet take 1 tablet by mouth once daily gabapentin (NEURONTIN) 300 mg capsule Take 300 mg by mouth twice daily. CALCIUM CARBONATE/VITAMIN D3 (CALCIUM + D ORAL) Take one(1) tablet two(2) times daily. ASPIRIN 81 MG CHEWABLE TAB 1 Tab ORAL DAILY IMPRESSION/PLAN AND RECOMMENDATIONS: New diagnosis of atrial fibrillation in Jun 2023. Sustained since then, unknown duration. Overall no specific symptoms except occasional palpitations. Ventricular rates are elevated today at 113 bpm. [id number] score of 2, primarily with history of hypertension and age. Intermediate risk of thromboembolism. We discussed new diagnosis of atrial fibrillation, different treatment approaches to A-fib. Start metoprolol tartrate 25 mg twice daily for rate control Discussed indication for anticoagulation. Start Xarelto 20 mg daily, stop aspirin. 30 free trial coupon for Xarelto provided to patient. If Xarelto is expensive, we may need to change him to warfarin and have him follow-up at local clinic at [place] for INR monitoring. If he goes on a DOAC, we will arrange for cardioversion in 4 weeks from starting anticoagulation. If he goes on Coumadin, we will have to add a KASSIE to the cardioversion given INRs may not be therapeutic for 3 weeks by then. Echocardiogram in between FU in 1st-2nd week of November, after [facility] Emanuel Scott MD [facility] 07-01-2023 Nurse Note EKG performed as ordered. Transmitted to [facility] electronically, placed in scanning. Briana Castillo MA documented in this encounter [facility] 06-30-2023 Note HNO ID: [id number] Author: Usman Lowry APRN.POST ACUTE CARE NURSE Service: ? Author Type: Nurse Practitioner Type: [...] transplant. 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 Had ventral hernia repair in February 2013. Baseline scr 1.2-1.4 Brother had renal tx here in Aug 2020 PAST MEDICAL HISTORY Diagnosis Date Coronary atherosclerosis of unspecified type of vessel, seminole or graft Mild 3-vessel Coronary artery disease [...] 06/05/2015 81 12/07 (more content not included)... [facility] 06-30-2023 History of Present illness Narrative Patient presents for renal tx follow up care The HPI and Assessment was copied from my previous note dated 07/01/2022 with changes as noted Mr. Link Rosen is a 68 year old male who presents for follow up of a dual adult DD kidney transplant. 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 Had ventral hernia repair in February 2013. Baseline scr 1.2-1.4 Brother had renal tx here in Aug 2020 PAST MEDICAL HISTORY Diagnosis Date Coronary atherosclerosis of unspecified type of vessel, seminole or graft Mild 3-vessel Coronary artery disease [...] DNA by PCR 06/05/2021 Test reordered by [facility]. 03/06/2021 Negative for BK virus DNA by [...] labs PLAN Standing labs updated for LAI Lou every 3 months continue same meds repeat hepatic function panel--will defer as per his request and clinically no evidence to correlate with elevated bili, suspect this was transient 'Oral hydration as tolerated Avoid NSAIDS and iodinated contrast exposure Exercise as tolerated Health Maintenance as per PCP, followed every 6 months Check EKG today, irregular heartbeat not prev noted. RTC [address] Thad Lowry APRN.POST ACUTE CARE NURSE documented in this encounter [facility] 06-30-2023 Note Patient Outreach (KI DMMN) ------ LINK ROSEN ([id number]) 1955 M Date Time Provider Department 06/30/23 USMAN LOWRY During your visit today, we recorded the following information about you: Allergies As of Date: 06/30/2023 (No Known Allergies) Date Reviewed: 06/30/2023 Reviewed by: Barbara Darden MA - Fully Assessed Visit Diagnosis:Screening for genitourinary condition [Z13.89] Order(s):URINALYSIS, REFLEX MICROSCOPIC [[id number]] Order #: [id number]. #:[id number] Prescriptions as of 07/03/2023 - mycophenolate mofetil [...] [Z94.0] Umbilical hernia [K42.9] Encounter Status:Closed by WILSON JONES on 07/03/23 [facility] 06-26-2023 Miscellaneous Notes The following approved medication [...] mouth once daily Authorizing Provider: USMAN LOWRY APRN.CNP Patient's request for medication is as follows: [...] pharmacy. Cabrera Grant documented in this encounter [facility] 12-05-2022 Miscellaneous Notes The following approved medication requests have been transmitted electronically. Requested Prescriptions Signed Prescriptions Disp Refills tacrolimus IR (PROGRAF) 1 mg capsule 270 capsule 3 Sig: Take(1) capsule by mouth twice daily Usman Lowry APRN.SEAN documented in this encounter [facility] 11-05-2022 History of Present illness Narrative VIRTUAL VISIT FOLLOW UP PATIENT: Link Rosen [id number] 11/05/2022 This is a virtual visit using [employer] video visit. It required patient-provider interaction for [...] Cribriform pattern 4: No Intraductal carcinoma: No Laborer Pipeline tumor block to use for additional studies: [...] lateral posterior, core biopsy: - Prostatic adenocarcinoma, Aurora score 3+4=7 (Grade Group 2), involving 1/2 core(s) (2 mm tumor length, 10%). - Percentage of Aurora pattern 4 = <5%. - Cribriform morphology absent. C. Prostate, left medial anterior, core biopsy: - Benign prostatic tissue. D. Prostate, left medial posterior, core biopsy: - Prostatic adenocarcinoma, Aurora score 3+3=6 (Grade Group 1), involving 1/2 core(s) (2 mm tumor length, 15%). E. Prostate, right lateral anterior, core biopsy: - Benign prostatic tissue. F. Prostate, right lateral posterior, core biopsy: - Benign prostatic tissue. G. Prostate, right medial anterior, core biopsy: - Prostatic adenocarcinoma, Aurora score 3+3=6 (Grade Group 1), involving 1/2 core(s) (3 mm tumor length, 20%). H. Prostate, right medial posterior, core biopsy: - Benign prostatic tissue. Prostate Cancer Biopsy Summary Number of cores examined: 16 Number of cores positive: 3 Highest Grade Group: 2 Highest % of core involvement: 20% Cribriform pattern 4: No Intraductal carcinoma: No Laborer Pipeline tumor block to use for additional studies: [...] for Dr. Jesse Burks by Julia Dumont medical office supervisor on 11/05/2022 I agree with the Chief Complaint, ROS, and Past Histories independently gathered by the clinical sales and support center agent including scribe and or medical student and or DESIREE and or resident or fellow and the remaining scribed note accurately describes my personal service to the patient. Jesse Burks MD, MS [facility] documented in this encounter [facility] 10-17-2022 History of Present illness Narrative [...] Prostate Biopsy Report Name: Link Rosen MR#: [id number] Date: October 16, 2022 DIAGNOSIS: Elevated PSA: 5.77, did not get MRI as planned TRANSRECTAL ULTRASOUND: Documentation images were taken. Yes Surgeon(s)/Proceduralist(s) and Duty Manager(s): Surgeon(s) and Role: * Jesse Burks - [...] Past Histories independently gathered by the clinical sales and support center agent including scribe and or medical student and or DESIREE and or resident or fellow and the remaining scribed note accurately describes my personal service to the patient. 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 documented in this encounter [facility] 09-16-2022 History of Present illness Narrative [facility] ESTABLISHED PATIENT [...] 04/24/2009 7.39 7.35 - 7.45 Final Specific [place], [place] Date Value Ref Range Status 07/01/2022 [...] Coronary atherosclerosis of unspecified type of vessel, seminole or graft Mild 3-vessel Coronary artery disease [...] is indicated. The company offering this test, [employer] was co-founded by the [facility]. The [facility] has a minority ownership position in the company, so the [facility] indirectly benefits financially from the sale of this test. If you have any questions about this, please ask your doctor or call the [place] Emergency [employer] Management and Conflict of Interest Office at [phone]. The precise cost of IsoPSA to an individual patient depends on his specific insurance plan, co-pay provisions, and deductibles, but the maximum etd-ow-yfqven expense is $450. For eligible patients, the company's financial assistance program can reduce patient exposure to as little as $100. Please contact the patient financial recording clerk at ext [phone] to get an estimate of your muf-aj-aomril cost. IsoPSA has not yet been cleared or approved by the FDA. IsoPSA is a Lab Developed Test performed in a laboratory by [employer] that is regulated under the Clinical Laboratory Improvement Amendments of 1988 (or CLIA) and is overseen by the Centers for Medicare and Medicaid Services (CMS) within the [place].S. Department of Health and Human Services. I spent a total of 15 minutes on the date of the service which included preparing to see the patient, ceim-il-lfgy patient care, obtaining and/or reviewing separately obtained history, performing a medically appropriate examination, and ordering medications, tests, or procedures. Kristina Whitaker APRN.CNP documented in this encounter [facility] 03-18-2022 Miscellaneous Notes ROLO: 07/05/21 Patient's [...] pharmacy. Emperatriz Nice documented in this encounter [facility] 02-26-2022 History of Present illness Narrative VIRTUAL VISIT FOLLOW UP PATIENT: Link Rosen [id number] 02/26/2022 This is a virtual visit using [employer] video visit. It required patient-provider interaction for [...] for Dr. Jesse Burks by Saeed Torres, medical office supervisor, on February 26, 2022 This visit was conducted as a video visit and lasted 10 minutes. I agree with the Chief Complaint, ROS, and Past Histories independently gathered by the clinical sales and support center agent including scribe and or medical student and or DESIREE and or resident or fellow and the remaining scribed note accurately describes my personal service to the patient. Jesse Burks MD, MS [facility] documented in this encounter [facility] 01-31-2022 History of Present illness Narrative [...] Coronary atherosclerosis of unspecified type of vessel, seminole or graft Mild 3-vessel Coronary artery disease [...] Richardson M.D., Ph.D., Luca Estrella M.D., Ana Regalado M.P.H., Carlie De Los Santos Sc.D. Effect of Verification Bias on Screening [...] considering all of these factors. References: Miguel TALAMANTES et al. N Engl J Med(2004)350:2239-46 and Pollyi RIGO et al. J Urol(2003)169:125-29. Outside and Past [...] Past Histories independently gathered by the clinical sales and support center agent including scribe and or medical student and or DESIREE and or resident or fellow and the remaining scribed note accurately describes my personal service to the patient. Jesse Burks MD, MS [facility] ADDENDUM PSA was only 3.6 on follow up so ISOPSA was not done. Follow up in 6 moths with PSA Prostate Cancer Educational Materials Prostate Cancer [facility] Consumer Health http://my.[email or web address].[email or web address]/disorde rs/prostate_cancer/hic_prostate_cance r_basics.aspx Prostate Cancer Treatment Guide (download) [facility] http://www.[facility].org/lp/pro state-cancer/index.html [facility] Treatment Choices for Early-Stage Prostate Cancer https://www.cancer.gov/types/prostate /patient/iieprbno-dbcjxlxla-dlu [facility] Coping with Cancer https://www.cancer.gov/about-cancer/c oping documented in this encounter [facility] 01-30-2022 Note PROCEDURE: XR ANKLE LT [...] post traumatic changes. Electronically authenticated by: JAN CARNES Date: 2022-01-30 11:51 [facility] 07-27-2021 Note PROCEDURE: XR ANKLE [...] authenticated by: MUSTAPHA BAUGH Date: 2021-07-27 07:29 [facility] Evaluation note Diagnosis Elevated prostate specific antigen (PSA)- Primary Elevated PSA Elevated prostate specific antigen (PSA) [facility] Elevated PSA- Primary Elevated prostate specific antigen (PSA) [facility] Kidney replaced by transplant Need for prophylactic immunotherapy Need for pneumocystis prophylaxis Need for other prophylactic chemotherapy Hypomagnesemia Disorders of magnesium metabolism [facility] Kidney replaced by transplant Need for pneumocystis prophylaxis Need for other prophylactic chemotherapy [facility] Diagnosis Screening for genitourinary condition Screening for other and unspecified genitourinary condition [facility] Elevated PSA- Primary Elevated prostate specific antigen (PSA) [facility] Diagnosis Screening for genitourinary condition Screening for other and unspecified genitourinary condition [facility] Diagnosis Encounter for observation for other suspected diseases and conditions ruled out- Primary [facility] Kidney [facility] by [facility] Diagnosis Elevated PSA- Primary Elevated prostate specific antigen (PSA) [facility] Diagnosis Elevated PSA- Primary Elevated prostate specific antigen (PSA) [facility] Diagnosis Kidney replaced by transplant Need for prophylactic immunotherapy Need for pneumocystis prophylaxis Need for other prophylactic chemotherapy [facility] Diagnosis Kidney replaced by transplant- Primary Hypophosphatemia Disorders of phosphorus metabolism Hypomagnesemia Disorders of magnesium metabolism Irregular heartbeat Cardiac dysrhythmia, unspecified Aftercare following organ transplant [facility] Diagnosis Irregular heartbeat- Primary Cardiac dysrhythmia, unspecified Polycystic kidney disease Polycystic kidney, unspecified type [facility] Diagnosis Atrial fibrillation by electrocardiogram (HCC)- Primary Atrial fibrillation [facility] Diagnosis Persistent atrial fibrillation (HCC)- Primary Atrial fibrillation Abnormal EKG Nonspecific abnormal electrocardiogram (ECG) (EKG) Encounter for lipid screening for cardiovascular disease Screening for lipoid disorders Cardiomyopathy, unspecified type (HCC) 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) [facility] Diagnosis Kidney replaced by transplant Need for prophylactic immunotherapy documented in this encounter [facility] note* Diagnosis Persistent atrial fibrillation (HCC) Atrial fibrillation Abnormal EKG Nonspecific abnormal electrocardiogram (ECG) (EKG) documented in this encounter [facility] note* Diagnosis AF (paroxysmal atrial fibrillation) (HCC)- Primary Atrial fibrillation documented in this encounter [facility] note* Diagnosis AF (paroxysmal atrial fibrillation) (HCC)- Primary Atrial fibrillation Atrial fibrillation, unspecified type (HCC) documented in this encounter [facility] for referral (narrative)* Outpatient Procedure (Routine) - Pending Review Specialty Diagnoses / Procedures Referred By La martin Referred To Contact [facility] Diagnoses Encounter for observation for other suspected diseases and conditions ruled out Procedures PROSTATE BIOPSY GUKI PROSTATE NEEDLE BIOPSY ANY APPROACH US, TRANSRECTAL URNLS DIP STICK/TABLET RGNT AUTO W/O MICROSCOPY US GUIDANCE NEEDLE PLACEMENT IMG S&I Jesse Burks MD [address] [place] [address] [address] Referral ID Status Reason Start Date Expiration Date Visits Requested Visits Authorized [id number] Pending Review Auto-Generat ed Referral 09/19/2022 09/19/2023 1 1 * MRI/CT (Routine) - Pending Review Specialty Diagnoses / Procedures Referred By La martin Referred To Contact [facility] Diagnoses Encounter for observation for other suspected diseases and conditions ruled out Procedures MRI PROSTATE WO/W IVCON MRI PELVIS W/O & W/CONTRAST MATERIAL Jesse Burks MD [address] [place] [address] Mr Imaging Referral ID Status Reason Start Date Expiration Date Visits Requested Visits Authorized [id number] Pending Review Auto-Generat ed Referral 09/19/2022 10/19/2023 1 1 [facility] for referral (narrative)* Outpatient Procedure (Routine) - Pending Review Specialty Diagnoses / Procedures Referred By La t Referred To [facility] Diagnoses AF (paroxysmal atrial fibrillation) (HCC) Procedures ECG COMPLETE ECG ROUTINE ECG W/LEAST 12 LDS W/I&[place] [address] [place] [address] [facility] [address] [place] [address] Referral ID Status Reason Start Date Expiration Date Visits Requested Visits Authorized [id number] Pending Review Auto-Generat ed Referral 01/15/2024 01/14/2025 1 1 [facility] for visit Narrative* Diagnostic Procedure Only (Routine) - Closed Specialty Diagnoses / Procedures Referred By La martin Referred To Contact [facility] Diagnoses Persistent atrial fibrillation (HCC) Abnormal EKG Procedures NM CARDIAC PERF STRESS/PHARM MYOCARDIAL SPECT MULTIPLE STUDIES Emanuel Scott MD [address] [place] [address] [facility] [address] [id number] Referral ID Status Reason Start Date Expiration Date V isits Requested Visits Authorized [id number] Closed Auto-Generate d Referral 11/10/2023 12/09/2024 1 1 [facility] Summary Purpose Family History No Family History Records FoundNo Family History Records FoundNo Family History Records FoundNo Family History Records Found Advance Directives No Advanced Directives Records FoundDocuments on File Type Date 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(s) Reason for Referral Specialty Diagnoses / Procedures Referred By La martin Referred To Contact Cardiology Diagnoses Atrial fibrillation by electrocardiogram (HCC) Procedures CONSULT TO CARDIOLOGY OFFICE/OUTPATIENT [facility] HIGH MDM 60-74 MINUTES Usman Lowry, EMERGENCY MEDICINE SPECIALIST.POST ACUTE CARE NURSE [address] [place] [address] Referral ID Status Reason Start Date Expiration Date Visits Requested Visits Authorized [id number] Authorized PCP Requested Referral 07/11/2023 07/10/2024 1 1 Specialty Diagnoses / Procedures Referred By Contac t Referred To Contact Diagnoses Persistent atrial fibrillation (HCC) Procedures CONSULT TO ELECTROPHYSIOLOGY OFFICE/OUTPATIENT [facility] [address] [place] [address] [place] [address] Referral ID Status Reason Start Date Expiration Date Visits Requested Visits Authorized [id number] Authorized PCP Requested Referral 11/10/2023 11/09/2024 1 1 Specialty Diagnoses / Procedures Referred By Contac t Referred To Contact [facility] Diagnoses Persistent atrial fibrillation (HCC) Abnormal EKG Procedures NM CARDIAC PERF STRESS/PHARM MYOCARDIAL SPECT MULTIPLE STUDIES Emanuel Scott MD [address] [place] [address] [facility] [address] [place] [id number] Referral ID Status Reason Start Date Expiration Date Visits Requested Visits Authorized [id number] Authorized Auto-Generat ed Referral 11/10/2023 12/09/2024 1 1 Specialty Diagnoses / Procedures Referred By Contac t Referred To [facility] Diagnoses Persistent atrial fibrillation (HCC) Abnormal EKG Procedures ECG COMPLETE ECG ROUTINE ECG W/LEAST 12 LDS W/I&R Emanuel Scott MD [address] [place] [address] [facility] [address] [place] [address] Referral ID Status Reason Start Date Expiration Date Visits Requested Visits Authorized [id number] Pending Review Auto-Generat ed Referral 11/10/2023 11/09/2024 1 1 Additional Source Comments (unrecognized sect ion and content) No Status Records FoundNo Status Records FoundNo Status Records FoundNo Status Records Found INFORMATION SOURCE (unrecogn ized section and content) DATE CREATED AUTHOR 09/26/2021 [facility] DATE CREATED AUTHOR AUTHOR'S ORGANIZ ATION 04/22/2022 [facility] DATE CREATED AUTHOR AUTHOR'S ORGANIZ ATION 03/03/2024 [facility] DATE CREATED AUTHOR AUTHOR'S ORGANIZ ATION 03/09/2024 [facility] l Source Comments (unrecognize d section and content) In the event this informatio n is protected by the Federal Confidentiality of Alcohol and Drug Abuse Patient Records regulations: The Federal rules restrict any use of the information to criminally investigate or prosecute any alcohol or drug abuse patient.[facility] the event this information is protected by the Federal Confidentiality of Alcohol and Drug Abuse Patient Records regulations: The Federal rules restrict any use of the information to criminally investigate or prosecute any alcohol or drug abuse patient.[facility] the event this information is protected by the Federal Confidentiality of Alcohol and Drug Abuse Patient Records regulations: The Federal rules restrict any use of the information to criminally investigate or prosecute any alcohol or drug abuse patient.[facility] the event this information is protected by the Federal Confidentiality of Alcohol and Drug Abuse Patient Records regulations: The Federal rules restrict any use of the information to criminally investigate or prosecute any alcohol or drug abuse patient.[facility] the event this information is protected by the Federal Confidentiality of Alcohol and Drug Abuse Patient Records regulations: The Federal rules restrict any use of the information to criminally investigate or prosecute any alcohol or drug abuse patient.[facility] the event this information is protected by the Federal Confidentiality of Alcohol and Drug Abuse Patient Records regulations: The Federal rules restrict any use of the information to criminally investigate or prosecute any alcohol or drug abuse patient.[facility] Hospital[facility] the event this information is protected by the Federal Confidentiality of Alcohol and Drug Abuse Patient Records regulations: The Federal rules restrict any use of the information to criminally investigate or prosecute any alcohol or drug abuse patient.[facility] Hospital[facility] the event this information is protected by the Federal Confidentiality of Alcohol and Drug Abuse Patient Records regulations: The Federal rules restrict any use of the information to criminally investigate or prosecute any alcohol or drug abuse patient.[facility] Hospital[facility] the event this information is protected by the Federal Confidentiality of Alcohol and Drug Abuse Patient Records regulations: The Federal rules restrict any use of the information to criminally investigate or prosecute any alcohol or drug abuse patient.[facility] Hospital[facility] the event this information is protected by the Federal Confidentiality of Alcohol and Drug Abuse Patient Records regulations: The Federal rules restrict any use of the information to criminally investigate or prosecute any alcohol or drug abuse patient.[facility] HospitalIn the event this information is protected by the Federal Confidentiality of Alcohol and Drug Abuse Patient Records regulations: The Federal rules restrict any use of the information to criminally investigate or prosecute any alcohol or drug abuse patient.[facility] HospitalIn the event this information is protected by the Federal Confidentiality of Alcohol and Drug Abuse Patient Records regulations: The Federal rules restrict any use of the information to criminally investigate or prosecute any alcohol or drug abuse patient.[facility] HospitalIn the event this information is protected by the Federal Confidentiality of Alcohol and Drug Abuse Patient Records regulations: The Federal rules restrict any use of the information to criminally investigate or prosecute any alcohol or drug abuse patient.[facility] HospitalIn the event this information is protected by the Federal Confidentiality of Alcohol and Drug Abuse Patient Records regulations: The Federal rules restrict any use of the information to criminally investigate or prosecute any alcohol or drug abuse patient.[facility] HospitalIn the event this information is protected by the Federal Confidentiality of Alcohol and Drug Abuse Patient Records regulations: The Federal rules restrict any use of the information to criminally investigate or prosecute any alcohol or drug abuse patient.[facility] HospitalIn the event this information is protected by the Federal Confidentiality of Alcohol and Drug Abuse Patient Records regulations: The Federal rules restrict any use of the information to criminally investigate or prosecute any alcohol or drug abuse patient.[facility] HospitalIn the event this information is protected by the Federal Confidentiality of Alcohol and Drug Abuse Patient Records regulations: The Federal rules restrict any use of the information to criminally investigate or prosecute any alcohol or drug abuse patient.[facility] HospitalIn the event this information is protected by the Federal Confidentiality of Alcohol and Drug Abuse Patient Records regulations: The Federal rules restrict any use of the information to criminally investigate or prosecute any alcohol or drug abuse patient.[facility] HospitalIn the event this information is protected by the Federal Confidentiality of Alcohol and Drug Abuse Patient Records regulations: The Federal rules restrict any use of the information to criminally investigate or prosecute any alcohol or drug abuse patient.[facility] HospitalIn the event this information is protected by the Federal Confidentiality of Alcohol and Drug Abuse Patient Records regulations: The Federal rules restrict any use of the information to criminally investigate or prosecute any alcohol or drug abuse patient.[facility] HospitalIn the event this information is protected by the Federal Confidentiality of Alcohol and Drug Abuse Patient Records regulations: The Federal rules restrict any use of the information to criminally investigate or prosecute any alcohol or drug abuse patient.[facility] HospitalIn the event this information is protected by the Federal Confidentiality of Alcohol and Drug Abuse Patient Records regulations: The Federal rules restrict any use of the information to criminally investigate or prosecute any alcohol or drug abuse patient.[facility] HospitalIn the event this information is protected by the Federal Confidentiality of Alcohol and Drug Abuse Patient Records regulations: The Federal rules restrict any use of the information to criminally investigate or prosecute any alcohol or drug abuse patient.[facility] HospitalIn the event this information is protected by the Federal Confidentiality of Alcohol and Drug Abuse Patient Records regulations: The Federal rules restrict any use of the information to criminally investigate or prosecute any alcohol or drug abuse patient.[facility] HospitalIn the event this information is protected by the Federal Confidentiality of Alcohol and Drug Abuse Patient Records regulations: The Federal rules restrict any use of the information to criminally investigate or prosecute any alcohol or drug abuse patient.[facility] HospitalIn the event this information is protected by the Federal Confidentiality of Alcohol and Drug Abuse Patient Records regulations: The Federal rules restrict any use of the information to criminally investigate or prosecute any alcohol or drug abuse patient.[facility] HospitalIn the event this information is protected by the Federal Confidentiality of Alcohol and Drug Abuse Patient Records regulations: The Federal rules restrict any use of the information to criminally investigate or prosecute any alcohol or drug abuse patient.[facility] Care Teams (unrecognized sec tion and content) 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 Relationship Specialty Start Date End Date Kathleen Sams PA-C [address] [place] [address] PCP - General Internal Medicine 07/06/18 Usman Lowry, EMERGENCY MEDICINE SPECIALIST.POST ACUTE CARE NURSE [address] [place] [address] Primary Staff Physician Nephrology 10/04/21 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 Relationship Specialty Start Date End Date Kathleen Sams PA-C [address] [place] [address] PCP - General Internal Medicine 07/06/18 Usman Lowry, EMERGENCY MEDICINE SPECIALIST.POST ACUTE CARE NURSE [address] [place] [address] Primary Staff Physician Nephrology 10/04/21 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 Relationship Specialty Start Date End Date Kathleen Sams PA-C [address] [place] [address] PCP - General Internal Medicine 07/06/18 Usman Lowry, EMERGENCY MEDICINE SPECIALIST.POST ACUTE CARE NURSE [address] [place] [address] Primary Staff Physician Nephrology 10/04/21 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 Relationship Specialty Start Date End Date Kathleen Sams PA-C [address] [place] [address] PCP - General Internal Medicine 07/06/18 Usman Lowry, EMERGENCY MEDICINE SPECIALIST.POST ACUTE CARE NURSE [address] [place] [address] Primary Staff Physician Nephrology 10/04/21 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 Relationship Specialty Start Date End Date Kathleen Sams PA-C [address] [facility] [place] [address] PCP - General Internal Medicine 07/06/18 Usman Lowry, EMERGENCY MEDICINE SPECIALIST.POST ACUTE CARE NURSE [address] [place] [address] Primary Staff Physician Nephrology 10/04/21 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 Relationship Specialty Start Date End Date Kathleen Sams PA-C [address] [place] [address] PCP - General Internal Medicine 07/06/18 Usman Lowry, EMERGENCY MEDICINE SPECIALIST.POST ACUTE CARE NURSE [address] [place] [address] Primary Staff Physician Nephrology 10/04/21 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 Relationship Specialty Start Date End Date Kathleen Sams PA-C [address] [place] [address] PCP - General Internal Medicine 07/06/18 Usman Lowry, EMERGENCY MEDICINE SPECIALIST.POST ACUTE CARE NURSE [address] [place] [address] Primary Staff Physician Nephrology 10/04/21 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 Relationship Specialty Start Date End Date Kathleen Sams PA-C [address] [place] [address] PCP - General Internal Medicine 07/06/18 Usman Lowry, EMERGENCY MEDICINE SPECIALIST.POST ACUTE CARE NURSE [address] [place] [address] Primary Staff Physician Nephrology 10/04/21 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 Relationship Specialty Start Date End Date Kathleen Sams PA-C [address] [place] [address] PCP - General Internal Medicine 07/06/18 Usman Lowry, EMERGENCY MEDICINE SPECIALIST.POST ACUTE CARE NURSE [address] [place] [address] Primary Staff Physician Nephrology 10/04/21 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 Relationship Specialty Start Date End Date Kathleen Sams PA-C [address] [place] [address] PCP - General Internal Medicine 07/06/18 Usman Lowry, EMERGENCY MEDICINE SPECIALIST.POST ACUTE CARE NURSE [address] [place], [place] [id number] Primary Staff Physician Nephrology 10/04/21 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 Relationship Specialty Start Date End Date Kathleen Sams PA-C [address] [place] [address] PCP - General Internal Medicine 07/06/18 Usman Lowry, EMERGENCY MEDICINE SPECIALIST.POST ACUTE CARE NURSE [address] [place], [place] [id number] Primary Staff Physician Nephrology 10/04/21 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 Relationship Specialty Start Date End Date Kathleen Sams PA-C [address] [place] [address] PCP - General Internal Medicine 07/06/18 Usman Lowry, EMERGENCY MEDICINE SPECIALIST.POST ACUTE CARE NURSE [address] [place], [place] [id number] Primary Staff Physician Nephrology 10/04/21 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 Relationship Specialty Start Date End Date Kathleen Sams PA-C [address] [place] [address] PCP - General Internal Medicine 07/06/18 Usman Lowry, EMERGENCY MEDICINE SPECIALIST.POST ACUTE CARE NURSE [address] [place], [place] [id number] Primary Staff Physician Nephrology 10/04/21 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 Relationship Specialty Start Date End Date Kathleen Sams PA-C [address] [place], [place] [id number] PCP - General Internal Medicine 07/06/18 Usman Lowry EMERGENCY MEDICINE SPECIALIST.POST ACUTE CARE NURSE [address] [place], [place] [id number] Primary Staff Physician Nephrology 10/04/21 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 Relationship Specialty Start Date End Date Kathleen Sams PA-C [address] [place], [place] [id number] PCP - General Internal Medicine 07/06/18 Usman Lowry, EMERGENCY MEDICINE SPECIALIST.POST ACUTE CARE NURSE [address] [place], [place] [id number] Primary Staff Physician Nephrology 10/04/21 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 Relationship Specialty Start Date End Date Kathleen Sams PA-C [address] [place], [place] [id number] PCP - General Internal Medicine 07/06/18 Usman Lowry, EMERGENCY MEDICINE SPECIALIST.POST ACUTE CARE NURSE [address] [place], [place] [id number] Primary Staff Physician Nephrology 10/04/21 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 Relationship Specialty Start Date End Date Kathleen Sams PA-C [address] [place], [place] [id number] PCP - General Internal Medicine 07/06/18 Usman Lowry EMERGENCY MEDICINE SPECIALIST.POST ACUTE CARE NURSE [address] [place] [address] Primary Staff Physician Nephrology 10/04/21 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 Relationship Specialty Start Date End Date Kathleen Sams PA-C [address] [place] [address] PCP - General Internal Medicine 07/06/18 Usman Lowry, EMERGENCY MEDICINE SPECIALIST.POST ACUTE CARE NURSE [address] [place] [address] Primary Staff Physician Nephrology 10/04/21 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 Relationship Specialty Start Date End Date Kathleen Sams PA-C [address] [place] [address] PCP - General Internal Medicine 07/06/18 Usman Lowry, EMERGENCY MEDICINE SPECIALIST.POST ACUTE CARE NURSE [address] [place] [address] Primary Staff Physician Nephrology 10/04/21 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 Relationship Specialty Start Date End Date Kathleen Sams PA-C [address] [place] [address] PCP - General Internal Medicine 07/06/18 Usman Lowry, EMERGENCY MEDICINE SPECIALIST.POST ACUTE CARE NURSE [address] [place] [address] Primary Staff Physician Nephrology 10/04/21 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 Relationship Specialty Start Date End Date Kathleen Sams PA-C [address] [place] [address] PCP - General Internal Medicine 07/06/18 Usman Lowry APRN.POST ACUTE CARE NURSE [address] [place] [address] Primary Staff Physician Nephrology 10/04/21 Reason for Visit (unrecogniz ed section and content) Reason Comments Follow Up Reason Onset Date Comments Refill Request 03/16/2022 Reason Comments Prostate Biopsy Reason Comments Follow Up Elevated PSA Reason Comments Refill Request Reason Comments Follow Up Reason Onset Date Comments Refill Request 11/20/2023 Reason Onset Date Comments Refill Request 11/26/2023 Reason Comments Radiology NM Specialty Diagnoses / Procedures Referred By La t Referred To Contact MOLECULAR & FUNCTIONAL IMAGING Diagnoses Persistent atrial fibrillation (HCC) Abnormal EKG Procedures NM CARDIAC PERF STRESS/PHARM MYOCARDIAL SPECT MULTIPLE STUDIES Emanuel Scott MD [address] [place] [address] Molecular & Functional Imaging [address] [place] [address] Referral ID Status Reason Start Date Expiration Date V isits Requested Visits Authorized [id number] Closed Auto-Generate d Referral 11/10/2023 12/09/2024 1 1 Reason Comments Atrial Fibrillation FOR RECORDS PERTAINING TO PATIENTS WHO ARE [...] BE BASED ON THE PRIMARY CLINICAL RECORDS. [employer] provides no warranty or guarantee of the accuracy or completeness of information in this document.
--- NOTE | 2024-03-11 08:58 | ED_ITS ---
HPI HPI - General Adult General Chief complaint: Dizziness Stated complaint: dizzy Time Seen by Provider: 03/11/24 08:48 Source: patient Mode of arrival: walk-in History of Present Illness HPI narrative: This patient is here complaining of fatigue and tiredness. This been going on over the last several days. Significantly, he is a renal transplant patient but his laboratory testing done as an outpatient reportedly was completely normal. He does not have very reports that he is testing on his personal my chart phone. He just states that they told him everything was normal. He had cardio ablation in [facility] last Friday for atrial fibrillation but he does not know if it was successful or not. He still remains on metoprolol 1 and half tablets twice a day. He states he has been urinating very very frequently about every hour. He has no history of prostate problems but he has had a previous UTI number of years ago. Does not have any back or flank pain. He is not vomiting. He is not running a fever at home. He is not on any antibiotics. He does not know what his ejection fraction is. He does not believe he has any coronary artery disease based on negative heart cath reports per his own history but he is somewhat of a limited historian. He has not had diarrhea. No chest pain shortness of breath wheezing or abdominal pain. No swelling of his extremities. Related Data Home Medications ?Medication ?Instructions ?Recorded ?Confirmed aspirin 81 mg tablet,delayed 81 mg PO DAILY 07/10/23 03/11/24 release (Adult Aspirin Regimen) mycophenolate mofetil 250 mg 500 mg PO Q12H 07/10/23 03/11/24 capsule prednisone 5 mg tablet 5 mg PO DAILY 07/10/23 03/11/24 sulfamethoxazole 400 1 tab PO DAILY 07/10/23 03/11/24 mg-trimethoprim 80 mg tablet tacrolimus 1 mg capsule, 1 mg PO Q12H 07/10/23 03/11/24 immediate-release gabapentin 300 mg capsule mg 03/11/24 hydroxyzine HCl 25 mg tablet mg 03/11/24 metoprolol tartrate 25 mg tablet mg 03/11/24 sucralfate 1 gram tablet 03/11/24 Previous Rx's ?Medication ?Instructions ?Recorded hydroxyzine pamoate 25 mg capsule 25 mg PO Q8H PRN anxiety #15 caps 07/10/23 (Vistaril) Allergies Allergy/AdvReac Type Severity Reaction Status Date / Time No Known Drug Allergies Allergy Verified 07/10/23 18:51 Opioid HPI Opioid Management Most Recent Opioid Data: Ur Phencyclidine Scrn Negative (NEGATIVE) 09/19/23 09:46 PFSH PFSH Social History Smoking status: Never smoker Exam Narrative Exam Narrative: Awake alert pleasant somewhat limited historian as it relates to these events because he had general anesthesia is what I noticed from his transfer records from that hospital. He did in fact undergo a successful ablation procedure and cardioversion. They did keep him on blood thinners and beta-blockers. They are scheduled to see him tomorrow Here in the ER he is awake alert modestly anxious. Vital signs are stable head he does not have any hypoxemia. Blood pressure 143/76. Overall skin is warm and dry mucous membranes are moist and pink he does not appear pale. His lungs are completely clear with no wheeze rales or rhonchi he has no cough or congestion. Heart rate and rhythm are irregular. His ventricular response is controlled. His legs have no peripheral edema at this time. Perfusion extremities is normal. Neurological function is normal with no evidence of TIA or stroke symptoms and no neurological complaints. Constitutional Vital Signs, click to edit/add: Last Vital Signs Temp 97.8 F 03/11/24 08:16 Pulse 85 03/11/24 12:00 Resp 21 H 03/11/24 12:00 BP 143/76 H 03/11/24 11:09 Pulse Ox 98 03/11/24 09:00 O2 Del Method Room Air 03/11/24 08:16 Course Vital Signs Vital signs: Vital Signs Temperature 97.8 F 03/11/24 08:16 Pulse Rate 83 03/11/24 08:16 Respiratory Rate 20 03/11/24 08:16 Blood Pressure 144/80 H 03/11/24 08:16 Pulse Oximetry 98 03/11/24 08:16 Oxygen Delivery Method Room Air 03/11/24 08:16 Temperature 97.8 F 03/11/24 08:16 Pulse Rate 85 03/11/24 12:00 Respiratory Rate 21 H 03/11/24 12:00 Blood Pressure 143/76 H 03/11/24 11:09 Pulse Oximetry 98 03/11/24 09:00 Oxygen Delivery Method Room Air 03/11/24 08:16 Medical Decision Making MDM Narrative Medical decision making narrative: Work up included a basic CMP. His BNP is elevated and there is no previous baseline. His troponin is negative. We observed him until approximately 12:40 AM and he did not have any tachyarrhythmia. He is stable at this time. I did reach out to his bindery helper and the nurse practitioner taking call indicated that in fact he does have a appointment to see them tomorrow and since he is already on blood thinners and his rate is controlled no change in his therapy is indicated at this time. We will give him a copy of all his records here and he is surely going to follow-up with him tomorrow Lab Data Labs: Lab Results 03/11/24 03/11/24 Range/Units 09:08 09:20 WBC 8.5 (4.0-11.0) 10^3/uL RBC 4.70 (4.70-6.10) 10^6/uL Hgb 15.1 (14.0-18.0) g/dL Hct 43.8 (42.0-54.0) % MCV 93.2 (80.0-94.0) fL MCH 32.1 (25.9-34.0) pg MCHC 34.5 (29.9-35.2) g/dL RDW 12.4 (11.0-15.0) % Plt Count 169 (150-450) 10^3/uL MPV 9.1 L (9.5-13.5) fL Neut % (Auto) 62.0 (43.0-75.0) % Lymph % (Auto) 25.5 (20.5-60.0) % Forest % (Auto) 7.4 (1.7-12.0) % Eos % (Auto) 3.6 (0.9-7.0) % Baso % (Auto) 1.1 (0.2-2.0) % Neut # (Auto) 5.3 (1.4-6.5) 10^3/uL Lymph # (Auto) 2.2 (1.2-3.8) 10^3/uL Forest # (Auto) 0.6 (0.3-0.8) 10^3/uL Eos # (Auto) 0.3 (0.0-0.7) 10^3/uL Baso # (Auto) 0.1 (0.0-0.1) 10^3/uL Abs Immat Gran (auto) 0.03 (0.00-0.03) 10^3/uL Imm/Tot Granulo (auto) 0.4 (0.0-0.5) % PT 12.1 H (9.0-11.6) sec INR 1.16 D-Dimer 0.64 H* (<=0.59) mg/L FEU Sodium 139 (136-145) mmol/L Potassium 4.1 (3.5-5.1) mmol/L Chloride 104 (98-107) mmol/L Carbon Dioxide 25.7 (21.0-32.0) mmol/L Anion Gap 13.4 BUN 12.0 (7.0-18.0) mg/dL Creatinine 1.34 H (0.70-1.30) mg/dL Est GFR ( Amer) >60 (>=60) Est GFR (Non-Af Amer) 53 L (>=60) BUN/Creatinine Ratio 9.0 Glucose 144 H (74-106) mg/dL Lactate 1.3 (0.4-2.0) mmol/L Calcium 9.5 (8.5-10.1) mg/dL Phosphorus 2.9 (2.6-4.7) mg/dL Total Bilirubin 1.7 H (0.2-1.0) mg/dL AST 13 L (15-37) U/L ALT 19 (16-63) U/L Alkaline Phosphatase 60 (46-116) U/L Troponin I High Sens 48.9 (4.0-76.1) pg/mL NT-Pro-B Natriuret Pep 2940.0 H* (<=900.0) pg/mL Total Protein 6.5 (6.4-8.2) g/dL Albumin 3.7 (3.4-5.0) g/dL Globulin 2.8 g/dL Albumin/Globulin Ratio 1.3 Urine Color Yellow (YELLOW) Urine Clarity Clear (CLEAR) Urine pH 6.5 (5.0-9.0) Ur Specific [place] 1.010 (1.005-1.025) Urine Protein Negative (NEG/TRACE) mg/dL Urine Glucose (UA) Negative (NEGATIVE) mg/dL Urine Ketones Negative (NEGATIVE) mg/dL Urine Occult Blood Trace-i (NEGATIVE) Urine Nitrite Negative (NEGATIVE) Urine Bilirubin Negative (NEGATIVE) Urine Urobilinogen 1.0 (0.2-1.0) EU/dL Ur Leukocyte Esterase Negative (NEGATIVE) Urine RBC 0-2 (0-2) #/HPF Urine WBC None seen (NONE SEEN) #/HPF Ur Squamous Epith Cells Rare (NONE/RARE) #/LPF Urine Bacteria None seen (NONE SEEN) #/HPF Urine Mucus None seen (NONE SEEN) Ur Culture Indicated? No Discharge Plan Discharge Stand Alone Forms: Portal Instructions Chief Complaint: Dizziness Clinical Impression: Atrial fibrillation Patient Disposition: Home, Self-Care Time of Disposition Decision: 12:42 Prescriptions / Home Meds: No Action sucralfate 1 gram tablet gabapentin 300 mg capsule hydroxyzine HCl 25 mg tablet metoprolol tartrate 25 mg tablet tacrolimus 1 mg capsule 1 mg PO Q12H mycophenolate mofetil 250 mg capsule 500 mg PO Q12H sulfamethoxazole-trimethoprim 400-80 mg tablet 1 tab PO DAILY prednisone 5 mg tablet 5 mg PO DAILY aspirin [Adult Aspirin Regimen] 81 mg tablet,delayed release (DR/EC) 81 mg PO DAILY hydroxyzine pamoate [Vistaril] 25 mg capsule 25 mg PO Q8H PRN (Reason: anxiety) Qty: 15 0RF Print Language: Chinese Additional Instructions: Take a copy of your lab, your physicians will see you tomorrow and make further recommendations return for any problem Referrals: Physician,Non-Staff, MD [Primary Care Provider] - 1 week
--- NOTE | 2024-03-11 08:59 | ECG_ITS ---
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
--- NOTE | 2024-03-11 08:59 | XR_ITS ---
The [address] [address] Patient Name: LINK BARNETT MRN: [id number] date: 1955 Sex: M Assigned Patient Location: ER Current Patient Location: ER Accession/Order Number: [id number] Exam Date: 03/11/2024 09:10 Report Date: 03/11/2024 10:10 At the request of: RADHA MORALES Procedure: XR chest 1V EXAMINATION: XR chest 1V HISTORY: Fatigue , dizziness COMPARISON: No relevant comparison available. FINDINGS: LUNGS: Mild haziness within left lung base partially obscuring the lateral costophrenic angle. VASCULATURE: No increased pulmonary vasculature. PLEURA: No pneumothorax, effusion, or pleural thickening. CARDIAC: No cardiomegaly or cardiac silhouette abnormality. MEDIASTINUM: No visible mass or adenopathy. BONES: No fracture or visible bone lesion. OTHER: Negative. XR/XR chest 1V IMPRESSION: 1. Mild left basilar infiltrates versus atelectasis. No prior studies for comparison. Electronically authenticated by: JAN CARNES Date: 03/11/2024 10:10
[2024-03-11] MEDS: 0.9 % SODIUM CHLORIDE 1,000 ML 999 ML IV (09:23)
[2024-03-11 09:43] LABS: Basophils Absolute Auto 0.1 10^3/uL (0.0-0.1); Basophils Percent Auto 1.1 % (0.2-2.0); Eosinophils Absolute Auto 0.3 10^3/uL (0.0-0.7); Eosinophils Percent Auto 3.6 % (0.9-7.0); Hematocrit 43.8 % (42.0-54.0); Hemoglobin 15.1 g/dL (14.0-18.0); Immature Granulocytes Abs Auto 0.03 10^3/uL (0.00-0.03); Immature Granulocytes Pct Auto 0.4 % (0.0-0.5); Lymphocytes Absolute Auto 2.2 10^3/uL (1.2-3.8); Lymphocytes Percent Auto 25.5 % (20.5-60.0); Mean Corpuscular HGB Conc 34.5 g/dL (29.9-35.2); Mean Corpuscular Hemoglobin 32.1 pg (25.9-34.0); Mean Corpuscular Volume 93.2 fL (80.0-94.0); Mean Platelet Volume 9.1 fL (9.5-13.5); Monocytes Absolute Auto 0.6 10^3/uL (0.3-0.8); Monocytes Percent Auto 7.4 % (1.7-12.0); Neutrophils Absolute Auto 5.3 10^3/uL (1.4-6.5); Platelet Count 169 10^3/uL (150-450); Red Cell Distribution Width 12.4 % (11.0-15.0); White Blood Count 8.5 10^3/uL (4.0-11.0)
[2024-03-11 09:52] LABS: Bilirubin Urine NEGATIVE (NEGATIVE); Blood Urine TRACE-I (NEGATIVE); Clarity Urine CLEAR (CLEAR); Color Urine YELLOW (YELLOW); Glucose Urine UA NEGATIVE (NEGATIVE); Ketones Urine NEGATIVE (NEGATIVE); Leukocyte Esterase Urine NEGATIVE (NEGATIVE); Nitrite Urine NEGATIVE (NEGATIVE); Protein Urine NEGATIVE (NEG/TRACE); pH Urine 6.5 (5.0-9.0)
[2024-03-11 09:54] LABS: INR 1.16; Prothrombin Time 12.1 sec (9.0-11.6)
[2024-03-11 09:58] LABS: Urine Microscopic Indicated YES
[2024-03-11 10:08] LABS: Bacteria Urine NONE SEEN #/HPF (NONE SEEN); Mucus Urine NONE SEEN (NONE SEEN); RBC Urine 0-2 #/HPF (0-2); Squamous Epithelial Cell Urine RARE #/LPF (NONE/RARE); WBC Urine NONE SEEN #/HPF (NONE SEEN)
[2024-03-11 10:09] LABS: Urine Culture Indicated NO
[2024-03-11 10:10] LABS: Lactate/Lactic Acid 1.3 mmol/L (0.4-2.0)
[2024-03-11 10:18] LABS: Alanine Aminotransferase 19 U/L (16-63); Albumin Globulin Ratio 1.3; Albumin Level 3.7 g/dL (3.4-5.0); Alkaline Phosphatase 60 U/L (46-116); Anion Gap 13.4; Aspartate Amino Transferase 13 U/L (15-37); Bilirubin Total 1.7 mg/dL (0.2-1.0); Calcium 9.5 mg/dL (8.5-10.1); Carbon Dioxide 25.7 mmol/L (21.0-32.0); Chloride 104 mmol/L (98-107); Estimated GFR (African America >60 (>=60); Estimated GFR (Non-African Ame 53 (>=60); Globulin 2.8 g/dL; Glucose 144 mg/dL (74-106); Phosphorus 2.9 mg/dL (2.6-4.7); Potassium 4.1 mmol/L (3.5-5.1); Sodium 139 mmol/L (136-145); Total Protein 6.5 g/dL (6.4-8.2); Troponin I High Sensitivity 48.9 pg/mL (4.0-76.1)
[2024-03-11 10:27] LABS: D Dimer 0.64 mg/L FEU (<=0.59)
== END 2024-03-11 12:52 | disposition home or self-care (01) ==
PROVIDERS: Emergency Provider Emergency Medicine Emergency Medical Services
DX: I48.91 Unspecified atrial fibrillation (principal); Z94.0 Kidney transplant status; Z87.440 Personal history of urinary (tract) infections
CPT/HCPCS: 36415; 71045; 80053; 81001; 83605; 83880; 84100; 84484; 85025; 85378; 85610; 93005; 96360; 99285

== ENCOUNTER 2024-05-18 12:54 | Outpatient (OUT) | payer MEDICARE, OTHER, SELFPAY ==
--- NOTE | 2024-05-18 | XR_ITS ---
The [address] [address] Patient Name: LINK BARNETT MRN: [id number] date: 1955 Sex: M Assigned Patient Location: Current Patient Location: Accession/Order Number: [id number] Exam Date: 05/18/2024 12:55 Report Date: 05/19/2024 08:46 At the request of: CHRISSY BABIN Procedure: XR foot LT min 3V PROCEDURE: XR ankle LT min 3V, XR foot LT min 3V COMPARISON: 01/30/2022 HISTORY: LEFT ANKLE PAIN FINDINGS: BONES:Stable ankle fusion utilizing intramedullary nail and proximally and distally. Bony fusion across the tibiotalar joint with no bony bridging across the talocalcaneal joint. Extensive enthesopathic spurring of the calcaneus at the Achilles and plantar insertions. Moderate to severe degenerative changes of the midfoot with joint space narrowing and marginal osteophyte formation. Fixation between the tibia and fibula SOFT TISSUES:Moderate diffuse soft tissue swelling EFFUSION:None visible. OTHER: Negative. XR/XR foot LT min 3V IMPRESSION: Stable fusion and degenerative changes Electronically authenticated by: MUSTAPHA BAUGH Date: 05/19/2024 08:46
--- NOTE | 2024-05-18 | XR_ITS ---
The [address] [address] Patient Name: LINK BARNETT MRN: [id number] date: 1955 Sex: M Assigned Patient Location: Current Patient Location: Accession/Order Number: [id number] Exam Date: 05/18/2024 12:55 Report Date: 05/19/2024 08:46 At the request of: CHRISSY BABIN Procedure: XR ankle LT min 3V PROCEDURE: XR ankle LT min 3V, XR foot LT min 3V COMPARISON: 01/30/2022 HISTORY: LEFT ANKLE PAIN FINDINGS: BONES:Stable ankle fusion utilizing intramedullary nail and proximally and distally. Bony fusion across the tibiotalar joint with no bony bridging across the talocalcaneal joint. Extensive enthesopathic spurring of the calcaneus at the Achilles and plantar insertions. Moderate to severe degenerative changes of the midfoot with joint space narrowing and marginal osteophyte formation. Fixation between the tibia and fibula SOFT TISSUES:Moderate diffuse soft tissue swelling EFFUSION:None visible. OTHER: Negative. XR/XR ankle LT min 3V IMPRESSION: Stable fusion and degenerative changes Electronically authenticated by: MUSTAPHA BAUGH Date: 05/19/2024 08:46
== END 2024-05-18 12:55 | disposition home or self-care (01) ==
LOC: EC 12:54
PROVIDERS: Visit Provider Podiatrist Foot & Ankle Surgery
DX: M25.572 Pain in left ankle and joints of left foot (principal); M24.672 Ankylosis, left ankle
CPT/HCPCS: 73610; 73630

== ENCOUNTER 2024-06-04 09:27 | Outpatient (RCR) | payer MEDICARE, OTHER, SELFPAY | END 2024-06-05 16:33 | disposition home or self-care (01) | LOC: OT 09:27 | PROVIDERS: Visit Provider Podiatrist Foot & Ankle Surgery | DX: I83.892 Varicose veins of left lower extremity with other complications (principal); M54.30 Sciatica, unspecified side | CPT/HCPCS: 97140; 97166; 97530 ==

== ENCOUNTER 2025-02-27 12:27 | Emergency (ER) | payer MEDICARE, OTHER, SELFPAY ==
--- OUTSIDE RECORDS SUMMARY | 2024-05-18 08:45 | XMS_ITS ---
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 (I83.892) Referral Organization The [facility] (PODIATRY) Referring Provider First Name Jordan Referring Provider Last Name Stephy Referring Provider Speciality Podiatry Referred Provider TB, Physical Therap y Referred Provider Specialty Physical Med icine and Rehabilitation Referral Priority Routine REASON FOR VISIT LT foot/ankle pain Medications Medication SIG (Take, Route, Frequency, Duration) Notes Start Date End Date Status Mycophenolate Mofetil 250 MG TAKE 2 CAPS ULES BY MOUTH TWICE DAILY Oral for 30 Days Active hydrOXYzine HCl 25 MG take 1 tablet by m outh once daily if needed Oral for 30 Days Active Gabapentin 300 MG Oral for 90 Days Active Metoprolol Tartrate 50 MG Oral for 90 Days Active hydrOXYzine HCl 25 MG TAKE 1 TABLET BY M OUTH ONCE DAILY IF NEEDED Oral for 30 Days Active Amiodarone HCl 200 MG TAKE 1 TABLET BY M OUTH TWICE DAILY FOR 7 DAYS THEN TAKE 1 TABLET BY MOUTH DAILY Oral for 90 Days Active Xarelto 20 MG Oral for 90 Days Active Tacrolimus 1 MG TAKE 1 CAPSULE BY MO UTH TWICE A DAY Oral for 30 Days Active Sucralfate 1 GM Oral for 30 Days Active Social History Tobacco Use: Social History Observation Description Date Details (start date - stop date) Never Smoker NA - NA Tobacco Control (Standard) Question Answer Notes Tobacco use: Nonsmoker Problems Problem Type SNOMED Code ICD Code Onset Dates Problem Status W/U Status Risk Notes Problem 910502543 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) Active confirmed Problem 303908744 Lymphedema, not elsewhere classified (I89.0) Active confirmed Problem 651283878650103 Sciatica, left side (M54.32) Active confirmed Vital Signs Weight 350 lbs 05/18/2024 Height 83.5 in 05/18/2024 Temperature 97.5 degrees Fahrenheit 05/18/20 24 Heart Rate 76 /min 05/18/2024 BMI 35.29 kg/m2 05/18/2024 Oximetry 97 % 05/18/2024 Encounters Encounter Location Date Provider Diagnosis The [facility] (PODIATRY) [address] [place] [address] [place] [address] 05/18/2024 Jordan Keyes Varicose veins of left lower extremity with other complications I83.892 ; Lymphedema, not elsewhere classified I89.0 ; Sciatica, left side M54.32 and Pain in left ankle and joints of left foot M25.572 Assessments Encounter Date Diagnosis (ICD Code) Assessment Notes Treatment Notes Treatment Clinical Notes Section Notes 05/18/2024 Varicose veins of left lower extremity with other complications (ICD-10 - I83.892) Patient is status post ankle and subtalar joint fusion performed approximately 3 years ago and was last seen 2 years ago. He relates about a week ago he began having sciatic pain which was improved with a massage but still has pain radiating from his left hip down his leg which is accompanied with swelling. I recommended physical therapy and Occupational Therapy. I offered venous Doppler to rule out DVT however patient declined. Patient will follow-up in 6 weeks no new x-rays are needed 05/18/2024 Lymphedema, not elsewhere classified (ICD-10 - I89.0) 05/18/2024 Sciatica, left side (ICD-10 - M54.32) 05/18/2024 Pain in left ankle and joints of left foot (ICD-10 - M25.572) Plan Of Treatment Treatment Notes Assessment Notes Varicose veins of left lower extremity with other complications Patient is status post ankle and subtala r joint fusion performed approximately 3 years ago and was last seen 2 years ago. He relates about a week ago he began having sciatic pain which was improved with a massage but still has pain radiating from his left hip down his leg which is accompanied with swelling. I recommended physical therapy and Occupational Therapy. I offered venous Doppler to rule out DVT however patient declined. Patient will follow-up in 6 weeks no new x-rays are needed Pending Test Test Name Order Date XR Ankle LT (3 views) * (164) 05/18/2024 XR Foot LT (3 views) * 05/18/2024 Referrals Referral Date Details 05/18/2024 05/18/2024, evaluati on and treatment -- see attached order, Physical Therapy [facility] Progress Notes * Nomi ROSEN WDOB: [birth year] (68 yo M)Acc No.[id number]:05/18/2024 Follow Up Patient: Nomi CARRASCO Provider: Alberto Keyes DPM MS :1955 A ge:68 Y S ex:Male Date:05/18/2024 Address:[address] [place], [place] [id number] Pcp:Unknown or None Check In:12:49 PM ESTCheck O ut:01:46 PM EST Subjective: * Chief Complaints: * L T foot/ankle pain * HPI: G eneral: Patient seen today for follow up of left foot and ankle pain. Patient was last seen 01/2022. States he is having increased pain and swelling to left ankle/foot pain.Feels like this could be mostly sciatica pain. States it does feel like nerve pain . * ROS: G eneral/Constitutional: Chills d enies. F ever d enies. W eight gain?denies. W eight loss d enies. S kin: Skin Ulcers d enies. S kin lesion(s) d enies. ? C ardiovascular: Difficulty breathing on exertion d enies. L eg cramps?denies. E rashmi d enies. C hest pain d enies. R espiratory: Difficulty breathing d enies. D yspnea d enies.?Cough d enies. G astrointestinal: Diarrhea d enies. N ausea d enies. V omiting?denies. M usculoskeletal: Bone/Joint Symptoms d enies. C kaity Pain d enies.?Leg cramps d enies. N eurologic: Numbness d enies. T ingling d enies . G ait abnormality d enies. ? H ematology: Anemia D enies. E asy bruising d enies. ? A ll Other Systems: Review of Systems (ROS) S ee HPI for details,All others negative except those mentioned in HPI. * Active Problem List M25.572 Pain in left ankle a nd joints of left foot Modified On:05/18/2024U Status:confirmed I83.892 Varicose veins of le ft lower extremity with other complications Modified On:05/18/2024 Status:confirmed I89.0 Lymphedema, not else where classified Modified On:05/18/2024 Status:confirmed M54.32 Sciatica, left side Modified On:05/18/2024 Status:confirmed * Medical History: * Surgical History: O RIF left trimalleolar * Hospitalization/Major Diagno stic Procedure: * Family History: N on-Contributory. * Social History: T obacco Use: T obacco Control (Standard) T obacco use: N onsmoker * Medications: T akingAmiodarone HCl 200 MG Tablet TAKE 1 TABLET BY MOUTH TWICE DAILY FOR 7 DAYS THEN TAKE 1 TABLET BY MOUTH DAILY Oral Gabapentin 300 MG Capsule Oral hydrOXYzine HCl 25 MG Tablet take 1 tablet by mouth once daily if needed Oral hydrOXYzine HCl 25 MG Tablet TAKE 1 TABLET BY MOUTH ONCE DAILY IF NEEDED Oral Metoprolol Tartrate 50 MG Tablet Oral Mycophenolate Mofetil 250 MG Capsule TAKE 2 CAPSULES BY MOUTH TWICE DAILY Oral Sucralfate 1 GM Tablet Oral Tacrolimus 1 MG Capsule TAKE 1 CAPSULE BY MOUTH TWICE A DAY Oral Xarelto(Rivaroxaban) 20 MG Tablet Oral Taking Amiodarone HCl 200 MG Tablet TAKE 1 TABLET BY MOUTH TWICE DAILY FOR 7 DAYS THEN TAKE 1 TABLET BY MOUTH DAILY Oral Taking Gabapentin 300 MG Capsule Oral Taking hydrOXYzine HCl 25 MG Tablet take 1 tablet by mouth once daily if needed Oral Taking hydrOXYzine HCl 25 MG Tablet TAKE 1 TABLET BY MOUTH ONCE DAILY IF NEEDED Oral Taking Metoprolol Tartrate 50 MG Tablet Oral Taking Mycophenolate Mofetil 250 MG Capsule TAKE 2 CAPSULES BY MOUTH TWICE DAILY Oral Taking Sucralfate 1 GM Tablet Oral Taking Tacrolimus 1 MG Capsule TAKE 1 CAPSULE BY MOUTH TWICE A DAY Oral Taking Xarelto(Rivaroxaban) 20 MG Tablet Oral Discontinuedaspirin Bactrim 400 mg-80 mg tablet tablet Calcium tablet tablet CellCept predniSONE Prograf(Tacrolimus) Vitamin D Medication List reviewed and reconciled with the patientDiscontinued aspirin Discontinued Bactrim 400 mg-80 mg tablet tablet Discontinued Calcium tablet tablet Discontinued CellCept Discontinued predniSONE Discontinued Prograf(Tacrolimus) Discontinued Vitamin D Medication List reviewed and reconciled with the patient * Allergies: N .K.D.A.no[Allergies Verified] Objective: * Vitals: W t:350lbs, Ht: 83.5 in, Temp:97.5F, HR:76/min, BMI:35.29Index, Pain scale:41-10, Oxygen sat %:97%, Ht-cm: 212.09 cm, Wt-k.76 kg. * Examination: P odiatry Examination: SKIN: s kin intact, n o sign of infection. MUSCULOSKELETAL: N o pain on palpation around the ankle. Foot and ankle are in a neutral position and there is no range of motion of the ankle or hindfoot.? NEUROLOGICAL: l ight touch sensation intact, n egative tinel's sign. VASCULAR: P edal pulses are faintly palpable, C apillaryrefill is brisk to toe, D igitalhair absent and there is bilateral lower leg swelling worse on the left than the right with large varicose veins. X -rays: x-rays were obtained & reviewed in my office. Hardware is stable and there is mild loosening of the subtalar screw but is not backing out. 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 Assessment: * Assessment: 1. V aricose veins of left lower extremity with other complications - I83.892 (Primary) 2 .?Lymphedema, not elsewhere classified - I89.0 3 . S ciatica, left side - M54.32 4 .?Pain in left ankle and joints of left foot - M25.572 Plan: * Treatment: 2. P ain in left ankle and joints of left foot I maging: XR Ankle LT (3 views) * (164) I maging: XR Foot LT (3 views) * * Procedure Codes: * * Sign off status: Completed Visit Status: C HK (Check Out) true * Provider: Alberto Keyes DPM, MS Date: 0 05/18/2024 Generated for Flaco lawson/Loren/Mohsenitting on: 0 02/27/2025 12:35 PM EDT History and Physical Notes * Examination Category Sub-Category Detail Notes Category Not es Podiatry Examination SKIN: skin intact, no sign of infection X-rays: x-rays were obtained & reviewed in my office. Hardware is stable and there is mild loosening of the subtalar screw but is not backing out. 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 Foot and ankle are in a neutral position and there is no range of motion of the ankle or hindfoot NEUROLOGICAL: light touch sensatio n intact, negative tinel's sign VASCULAR: Pedal pulses are faintly palpable, Capillary refill is brisk to toe, Digital hair absent and there is bilateral lower leg swelling worse on the left than the right with large varicose veins Consultation Request Notes Referral Date Referring Provider Referred Provider Not es 05/18/2024 Jordan Keyes [facility], Physical Therapy e valuation and treatment -- see attached order
--- OUTSIDE RECORDS SUMMARY | 2024-06-29 06:45 | XMS_ITS ---
Author Organization [facility] in [place] Address [address] [place] [address] Care Team Providers Care Tile Burner Name Role Phone None, Unknown or Primary Care Provider Unavailab Jordan Vazquez Unavailable [phone] Allergies No Known Allergies REASON FOR VISIT -6 Week Follow Up- Medications Medication SIG (Take, Route, Frequency, Duration) Notes Start Date End Date Status Xarelto 20 MG Oral for 90 Days Active Tacrolimus 1 MG TAKE 1 CAPSULE BY MO UTH TWICE A DAY Oral for 30 Days Active Sucralfate 1 GM Oral for 30 Days Active Mycophenolate Mofetil 250 MG TAKE 2 CAPS ULES BY MOUTH TWICE DAILY Oral for 30 Days Active Metoprolol Tartrate 50 MG Oral for 90 Days Active Gabapentin 300 MG Oral for 90 Days Active Amiodarone HCl 200 MG TAKE 1 TABLET BY M OUTH TWICE DAILY FOR 7 DAYS THEN TAKE 1 TABLET BY MOUTH DAILY Oral for 90 Days Active hydrOXYzine HCl 25 MG TAKE 1 TABLET BY M OUTH ONCE DAILY IF NEEDED Oral for 30 Days Active Social History Tobacco Use: Social History Observation Description Date Details (start date - stop date) Never Smoker NA - NA Tobacco Control (Standard) Question Answer Notes Tobacco use: Nonsmoker Vital Signs Weight 350 lbs 06/29/2024 Height 83.5 in 06/29/2024 Temperature 98.2 degrees Fahrenheit 06/29/20 24 Heart Rate 87 /min 06/29/2024 BMI 35.29 kg/m2 06/29/2024 Oximetry 98 % 06/29/2024 Encounters Encounter Location Date Provider Diagnosis [facility] (PODIATRY) [address] [place] [address] [place] [address] 06/29/2024 Jordan Keyes Varicose veins of left lower extremity with other complications I83.892 and Lymphedema, not elsewhere classified I89.0 Assessments Encounter Date Diagnosis (ICD Code) Assessment Notes Treatment Notes Treatment Clinical Notes Section Notes 06/29/2024 Varicose veins of left lower extremity with other complications (ICD-10 - I83.892) Patient presents for follow-up regarding left limb swelling which has greatly improved. He did not go to the emergency department or for venous ultrasound as recommended at last appointment but he has been using compression stockings and elevating his legs and his swelling is greatly improved and he is very happy with his progress he may follow-up as needed 06/29/2024 Lymphedema, not elsewhere classified (ICD-10 - I89.0) Plan Of Treatment Treatment Notes Assessment Notes Varicose veins of left lower extremity with other complications Patient presents for follow-up regarding left limb swelling which has greatly improved. He did not go to the emergency department or for venous ultrasound as recommended at last appointment but he has been using compression stockings and elevating his legs and his swelling is greatly improved and he is very happy with his progress he may follow-up as needed Progress Notes * Nomi ROSEN WDOB: [birth year] (69 yo M)Acc No.[id number]:06/29/2024 Follow Up Patient: Nomi CARRASCO Provider: Alberto Keyes DPM MS :1955 A ge:69 Y S ex:Male Date:06/29/2024 Address:[address] [place], [place] [id number] Pcp:Unknown or None Check In:10:34 AM ESTCheck O ut:10:54 AM EST Subjective: * Chief Complaints: * - 6 Week Follow Up- * HPI: G eneral: Patient seen today for follow up of left foot and ankle pain.States feeling better. Most of his pain is in his knees. States his foot and ankle feels better. States he feels like his swelling is better and he just went too long without compression . * ROS: G eneral/Constitutional: Chills d [...] ft lower extremity with other complications Modified On:05/18/2024U Status:confirmed I89.0 Lymphedema, not else where classified Modified On:05/18/2024 Status:confirmed M54.32 Sciatica, left side Modified On:05/18/2024 Status:confirmed * Medical History: * Surgical History: O RIF left trimalleolar * Hospitalization/Major Diagno stic Procedure: * Family History: N o Family History documented.. * Social History: T obacco Use: T obacco Control (Standard) T obacco use: N onsmoker * Medications: T akingAmiodarone HCl 200 MG Tablet TAKE 1 TABLET BY MOUTH TWICE DAILY FOR 7 DAYS THEN TAKE 1 TABLET BY MOUTH DAILY Oral Gabapentin 300 MG Capsule Oral hydrOXYzine HCl 25 MG Tablet TAKE [...] Oral Taking Xarelto(Rivaroxaban) 20 MG Tablet Oral DiscontinuedhydrOXYzine HCl 25 MG Tablet take 1 tablet by mouth once daily if needed Oral Medication List reviewed and reconciled with the patientDiscontinued hydrOXYzine HCl 25 MG Tablet take 1 tablet by mouth once daily if needed Oral Medication List reviewed and reconciled with the patient * Allergies: N .K.D.A.no[Allergies Verified] Objective: * Vitals: W t:350lbs, Ht: 83.5 in, Temp:98.2F, HR:87/min, BMI:35.29Index, Pain scale:31-10, Oxygen sat %:98%, Ht-cm: 212.09 cm, Wt-k.76 kg. * Examination: P odiatry Examination: SKIN: s kin intact, n o sign of infection. MUSCULOSKELETAL: N o POP. No RoM of foot or ankle. NEUROLOGICAL: l ight touch sensation intact, n egative tinel's sign. VASCULAR: P edal pulses palpable, C apillaryrefill is brisk to toe, edema has greatly subsided and is minimal and nonpitting. Assessment: * Assessment: 1. V aricose veins of left lower extremity with other complications - I83.892 (Primary) 2 .?Lymphedema, not elsewhere classified - I89.0 Plan: * Treatment: * Procedure Codes: * * Sign off status: Completed Visit Status: C HK (Check Out) true * Provider: Alberto Keyes DPM, MS Date: Generated for Flaco lawson/Loren/Mike on: 0 02/27/2025 12:34 PM EDT History and Physical Notes * Examination Category Sub-Category Detail Notes Category Not es Podiatry Examination SKIN: skin intact, no sign of infection MUSCULOSKELETAL: No POP. No RoM of fo ot or ankle NEUROLOGICAL: light touch sensatio n intact, negative tinel's sign VASCULAR: Pedal pulses palpable, Capillary refill is brisk to toe, edema has greatly subsided and is minimal and nonpitting
--- OUTSIDE RECORDS SUMMARY | 2024-09-06 06:30 | XMS_ITS ---
Author Organization [facility] Address [address] [place] [id number] Care Team Providers Care It Support Specialist Name Role Phone Jena Hunter Primary Care Provider Renae Bowen Unavailable [phone] REASON FOR VISIT 6 month Edema, Anxiety Social History Sex Assigned At : Social History Observation Description Sex Assigned At Male Encounters Encounter Location Date Provider Diagnosis Main [address] [place], [place] [id number] 09/06/2024 Renae Bowen Plan Of Treatment Next Appt Details Provider Name:Jena coronel, 02/28/2025 11:00:00 AM, [address] [place], [id number], Progress Notes * Nomi ROSEN WDOB: [birth year] (69 yo M)Acc No.[id number]:09/06/2024 Medical Note Patient: Shobha CHARITYMATTHEW Nomi Puri Provider: Shobha Patino, MSN, POLE CLASSIFIER, BORDER MEASURER-C :1955 A ge:69 Y S ex:Male Date:09/06/2024 Address:[address] [place], [place] Pcp:Jena Hunter Subjective: * Chief Complaints: * 1 . 6 month Edema, Anxiety. * Medical History: Objective: * Vitals: Assessment: Plan: * Treatment: * Billing Information: * Visit Code: * Procedure Codes: * Electronic signature of OLU Morales on 02/27/2025 at 12:35 PM EDT Sign off status: Pending * Provider: MICHAEL White, POLE CLASSIFIER, OLU Date: 1 Generated for Printing/Faxing/eTransmitting on: 0 02/27/2025 12:35 PM EDT
[2025-02-27 12:30] VITALS: BP 158/92; PULSE 69; TEMP 36.6; BMI 34.7
--- OUTSIDE RECORDS SUMMARY | 2025-02-27 12:34 | XMS_ITS | CCD ---
Author Organization [facility] Care Team Providers Care Industrial Cleaner Name Role Phone Kathleen Sams PA-C Primary Care Provider Lard DIAMOND POWDER MIXER.sUman ESTRADA Unavailable LANCE GLASGOW Admitting Unavailable [facility] Unava ilable LANCE GLASGOW Attending Unavailable LANCE GLASGOW Consulting Unavailable CHRISSY BABIN Admitting Unavailable DR MUSTAPHA BAUGH V Consulting Unavailable [facility] Unava ilable CHRISSY BABIN Attending Unavailable CHRISSY BABIN Consulting Unavailable CHRISSY BABIN Attending Unavailable DR Jan Carnes Consulting Unavailable [facility] Unava ilable TALYA PETER Shaunna Admitting Unavailable CHRISSY BABIN Consulting Unavailable Kathleen Sams PA-C Primary Care Provider Lard DIAMOND POWDER MIXER.Usman ESTRADA Unavailable Kathleen Sams PA-C Primary Care Provider Lard DIAMOND POWDER MIXER.Usman ESTRADA Unavailable Lard DIAMOND POWDER MIXER.Usman ESTRADA Unavailable Kathleen Sams PA-C Primary Care Provider KATHLEEN SAMS Primary Care Unavailable JULIO CÉSAROTOYE, WEI Admitting Unavailable BEV, WEI Attending Unavailable KATHLEEN SAMS Primary Care Unavailable OMOTOYE, WEI Admitting Unavailable OMOTOYE, WEI Attending Unavailable Kathleen Sams PA-C Primary Care Provider KATHLEEN SAMS Primary Care Unavailable JOSTINKA, SUROVI Referring Unavailable KATHLEEN SAMS Primary Care Unavailable HAZARIKA, SUROVI Attending Unavailable JOSTINKA, SUROVI Referring Unavailable KATHLEEN SAMS Primary Care Unavailable KATHLEEN SAMS Primary Care Unavailable JOSTINKA, EMANUEL Attending Unavailable MELISA BRICEÑO Attending Unavailable KATHLEEN SAMS Primary Care Unavailable KATHLEEN SAMS Primary Care Unavailable BEV, WEI Referring Unavailable LARD, USMAN L Referring Unavailable KATHLEEN SAMS Primary Care Unavailable LARD, USMAN L Referring Unavailable KATHLEEN SAMS Primary Care Unavailable KATHLEEN SAMS Primary Care Unavailable NHI ONEIL Attending Unavailable KATHLEEN SAMS Primary Care Unavailable RYANARIKA, EMANUEL Attending Unavailable SHIMOND, USMAN L Referring Unavailable KATHLEEN SAMS Primary Care Unavailable KATHLEEN SAMS Primary Care Unavailable GANESH, MELISA Attending Unavailable KATHLEEN SAMS Primary Care Unavailable OMOTOTINA, WEI Attending Unavailable SHIMOND, USMAN L Referring Unavailable KATHLEEN SAMS Primary Care Unavailable Medications [...] ORAL) Take one(1) tablet two(2) times daily. Active take 1 tablet by mouth once isabel y CALCIUM CARBONATE/VITAMIN D3 (CALCIUM + D ORAL) Take one(1) tablet two(2) times daily. 0 Active Comment on above: Take one(1) tablet t wo(2) times daily. gabapentin 300 mg oral capsule (20 sources) Anti-epileptic Agent Start: 08-22-20 take 1 capsule by mouth twice daily gabapentin (NEURONTIN) 300 mg capsule Take 300 mg by mouth twice daily. 08/22/2022 Active Comment on above: Take 300 mg by mouth twice daily. iv contrast (will be provided with radiology test) (2 sources) Start: 09-19-19 End: 09-20-19 iv contrast (will be provided with radiology [...] link. metoprolol tartrate 25 mg oral tablet (20 sources) beta-Adrenergic Uriel Start: 01-25-20 25 take 2 tablets by mouth every twelve hours metoprolol tartrate, short acting, (LOPRESSOR) 25 mg tablet Take 2 tablets by mouth every 12 hours. 180 tablet 3 01/24/2025 Active Start: 12-13-2024 End: 01-24-2025 metoprolol tartrate, short a cting, (LOPRESSOR) 25 mg tablet TAKE 1 AND 1/2 TABLETS BY MOUTH TWICE DAILY 270 tablet 3 12/13/2024 01/24/2025 Discontinued Start: 05-16-2024 End: 01-24-2025 take 1 tablet by mouth twice daily metoprolol tartrate, short acting, (LOPRESSOR) 50 mg tablet Indications: Persistent atrial fibrillation (HCC) , Abnormal EKG Take 1 tablet by mouth two times a day. 180 tablet 3 05/16/2024 01/24/2025 Discontinued (Course of therapy completed) Start: 03-12-2024 End: 05-14-2024 take 2 tablets by mouth twice daily metoprolol tartrate, short acting, (LOPRESSOR) 25 mg tablet Indications: Persistent atrial fibrillation (HCC) , Abnormal EKG Take 2 tablets by mouth two times a day. 270 tablet 3 03/12/2024 05/14/2024 Discontinued Start: 11-10-2023 End: 03-12-2024 take 1.5 tablets by mouth twice daily metoprolol tartrate, short acting, (LOPRESSOR) 25 mg tablet Indications: Persistent atrial fibrillation (HCC) , Abnormal EKG Take 1.5 tablets by mouth two times a day. 270 tablet 3 11/10/2023 03/12/2024 Discontinued Start: 11-10-2023 End: 11-17-2023 metoprolol 2.5-5 mg injectio n (LOPRESSOR) Start: 09-30-2023 End: 11-10-2023 take 1 tablet by mouth twice daily metoprolol tartrate, short acting, (LOPRESSOR) 25 mg tablet Take 1 tablet by mouth two times a day. 180 tablet 3 09/30/2023 11/10/2023 Discontinued Comment on above: Take 1.5 tablets by mouth two times a day. Take 1 tablet by jennifer two times a day. mycophenolate mofetil 250 mg oral capsule (20 sources) Start: End: take 2 capsules by mouth twice daily mycophenolate mofetil (CELLCEPT) 250 mg capsule Indications: 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) , Need for prophylactic immunotherapy TAKE 2 CAPSULES BY MOUTH TWICE DAILY 360 capsule 3 01/21/2025 Active Start: 11-23-2023 End: 11-11-2024 take 2 capsules by mouth twice daily mycophenolate mofetil (CELLCEPT) 250 mg capsule Indications: Kidney replaced by transplant , Need for prophylactic immunotherapy Take 2 capsules by mouth two times a day. 360 capsule 3 11/26/2023 11/11/2024 Discontinued Start: 07-01-2022 End: 11-20-2023 take 2 capsules [...] oral tablet (20 sources) Start: 07-01-2022 End: 06-18-2024 take 1 tablet by mouth once daily predniSONE (DELTASONE) 5 mg tablet Indications: 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) take 1 tablet by mouth once daily 90 tablet 3 06/18/2024 Active Start: 03-21-2021 End: 03-19-2022 take 1 tablet by mouth once daily predniSONE (DELTASONE) 5 mg tablet Indications: Kidney replaced by transplant Take 1 tablet by mouth once daily. 90 tablet 3 03/21/2021 03/19/2022 Discontinued Comment on above: Take 1 tablet by jennifer th once daily. take 1 tablet by jennifer th once daily regadenoson 0.4 mg injection (LEXISCAN) (1 source) Start: 11-10-2023 End: 11-17-2023 regadenoson 0.4 mg injection (LEXISCAN) rivaroxaban 20 mg oral tablet (20 sources) Factor Xa Inhibitor Start: 03-06-2024 End: 04-09-2024 take 1 tablet by mouth once daily at dinner rivaroxaban (XARELTO) 20 mg tablet Take 1 tablet by mouth daily with dinner. 90 tablet 3 04/09/2024 Active Start: 09-30-2023 take 1 tablet by jennifer th once daily at dinner rivaroxaban (XARELTO) 20 mg tablet Take 1 tablet by mouth daily with dinner. 90 tablet 3 09/30/2023 Active Comment on above: Take 1 tablet by jennifer th daily with dinner. sucralfate 1000 mg oral tablet (5 sources) Aluminum Complex Start: 03-06-20 End: 04-05-20 sucralfate (CARAFATE) 1 gram tablet Take 1 tablet by mouth before meals and at bedtime. only for 30 days, then discontinue there after 120 tablet 0 03/06/2024 04/05/2024 Active sulfamethoxazole 400 mg / trimethoprim 80 mg oral tablet (20 sources) Dihydrofolate Reductase Inhibitor Antibacterial, Sulfonamide Antimicrobial Start: 07-07-20 take 1 tablet by mouth once sulfamethoxazole-tr imethoprim (BACTRIM) 400-80 mg per tablet Indications: Need for pneumocystis prophylaxis Take 1 tablet by mouth every Friday, Friday, and Friday. 07/07/2024 Active Start: 07-01-2022 End: 07-06-2024 take 1 tablet by mouth once daily sulfamethoxazole-trimethoprim (BACTRIM) 400-80 mg per tablet Indications: Need for pneumocystis prophylaxis take 1 tablet by mouth once daily 90 tablet 3 06/18/2024 07/06/2024 Discontinued Start: 03-21-2021 End: 03-19-2022 take 1 tablet [...] capsule (20 sources) Calcineurin Inhibitor Immunosuppressant Start: 10-22-19 take 1 capsule by mouth twice daily tacrolimus IR (PROGRAF) 1 mg capsule Indications: 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) Take(1) capsule by mouth twice daily 180 capsule 3 10/22/2024 Active Start: 09-29-2023 End: 10-18-2024 take 1 capsule by mouth twice daily tacrolimus IR (PROGRAF) 1 mg capsule Indications: Kidney replaced by transplant Take(1) capsule by mouth twice daily 180 capsule 3 09/29/2023 10/18/2024 Discontinued Start: 09-20-2022 End: 12-05-2022 take 1 capsule [...] tablet (7 sources) Start: 10-05-2009 End: 09-16-2022 acetaminophen(TYL ENOL EXTRA STRENGTH 500 MG TAB) Take two(2) tablets every six(6) hours as needed for pain. 0 10/05/2009 09/16/2022 Discontinued (Course of therapy completed) Comment on above: Take two(2) tablets every six(6) hours as needed for pain. amiodarone hydrochloride 200 mg oral tablet (9 sources) Antiarrhythmic Start: 03-18-2024 End: 07-27-2024 take 1 tablet by mouth twice daily, then take 1 tablet by mouth once daily amiodarone (PACERONE) 200 mg tablet Take 1 tablet by mouth two times a day for 7 days, THEN 1 tablet once daily. 97 tablet 03/18/2024 07/27/2024 Discontinued (Course of therapy completed) hydrOXYzine hydrochloride 25 mg oral tablet (20 sources) Antihistamine Start: 05-21-2022 End: 06-30-2023 take 1 tablet by mouth every eight hours as needed hydrOXYzine HCl (ATARAX) 25 mg tablet Take 25 mg by mouth every 8 hours as needed. 0 05/21/2022 06/30/2023 Discontinued (Discontinued by Patient) take 1 tablet by jennifer th once daily as needed hydrOXYzine HCl (ATARAX) 25 mg tablet Ta ke 25 mg by mouth once daily as needed. Active Comment on above: Take 25 mg by mouth every 8 hours as needed. magnesium oxide 400 mg oral tablet (6 sources) Start: 4 End: 2 take 1 tablet by mouth twice daily magnesium oxide (MAG-OX) 400 mg tablet Indications: Hypomagnesemia Take 1 tablet by mouth twice daily. 180 tablet 3 05/27/2014 03/19/2022 Discontinued Comment on above: Take 1 tablet by jennifer th twice daily. perflutren lipid microspheres 1.3 mL in NaCl (PF) 0.9% 10 mL injection (DEFINITY) (2 sources) Start: End: perflutren lipid microspheres 1.3 mL in NaCl (PF) 0.9% 10 mL injection (DEFINITY) Start: 01-24-2025 End: 01-24-2025 take 1 dose intravenously once as needed INTRAVENOUS, DIRECTED NEEDED, 1 dose, Starting on Fri01/24/25 at 1411, Until Fri01/24/25 at 1425, Per Protocol - for use during ECHO procedure only, If no IV access, insert saline lock prior to administering contrast. Discontinue saline lock post exam. If patient has central line or IVAD, may access for administration according to line specific nursing protocol. Once exam is complete, flush line and de-access per line specific nursing protocol.Dilute 1.3 ml of Definity with 8.7 ml of preservative-free saline., Cardiac Procedure Med Orders Problems Active Problems Problem Classification Problem Date Documented Da te Episodic/Chronic Abdominal hernia (20 sources) Umbilical hernia; Translations: [Umbilical hernia without obstruction or gangrene] 01-29-2012 Episodic Aortic; peripheral; and visceral artery aneurysms (20 sources) Aneurysm of ascending aorta; Translations: [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)] Onset: 11-10-2023 11-10-2023 Chronic Cardiac dysrhythmias (20 sources) Irregular heart beat; Translations: [Cardiac arrhythmia, unspecified] Onset: 09-30-2023 06-30-2023 Chronic Chronic kidney disease (2 sources) Kidney transplant status; Translations: [End stage renal disease] Onset: 05-08-2009 Chronic Essential hypertension (2 sources) Essential hypertension; Translations: [Essential (primary) hypertension] 03-18-2024 Chronic Genitourinary congenital anomalies (20 sources) Multiple [...] transplant] 06-30-2023 Chronic Other aftercare (1 source) cold storage superintendent (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) use of 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; Translations: [PROCUREMENT ANALYST CURRENT USE OF ASPIRIN] Onset: 04-22-2022 Episodic Other aftercare (1 source) Other rn family (current) drug therapy; Translations: [OTH PROCUREMENT ANALYST CURRENT DRUG THERAPY] Onset: 04-22-2022 Episodic Other aftercare (2 sources) Long-term current use of anticoagulant; Translations: [cold storage superintendent (current) use of anticoagulants] 03-18-2024 Episodic Other and ill-defined heart disease (1 source) Heart disease; Translations: [Heart disease, unspecified] 03-12-2024 Chronic Other diseases of kidney and ureters (20 [...] Episodic Other nutritional; endocrine; and metabolic disorders (3 sources) Hypomagnesemia; Translations: [Hypomagnesemia] Chronic Other nutritional; endocrine; and metabolic disorders (1 source) Hypophosphatemia; Translations: [Other disorders of phosphorus metabolism] 06-30-2023 Chronic Other screening for suspected conditions (not mental disorders or infectious disease) (15 sources) Raised prostate specific antigen; Translations: [Elevated prostate specific antigen [PSA]] Episodic Melia-; endo-; and myocarditis; cardiomyopathy (except that caused by tuberculosis or sexually transmitted disease) (20 sources) Cardiomyopathy; Translations: [Cardiomyopathy, unspecified] Onset: 11-10-2023 11-10-2023 Chronic Residual codes; unclassified (20 sources) H/O: atrial fibrillation; Translations: [Other specified postprocedural states] Onset: 03-06-2024 03-12-2024 Episodic Unclassified (1 source) Aneurysm of ascending aorta without rupture; Translations: [Aneurysm of ascending aorta without rupture] Onset: 09-10-2024 Unclassified (1 source) Need for pneumocystis prophylaxis; Translations: [Need for pneumocystis prophylaxis] Onset: 07-06-2024 Unclassified (2 sources) Other persistent atrial fibrillation; Translations: [Persistent atrial fibrillation (HCC)] Onset: 03-05-2024 Unclassified (1 source) VT (ventricular tachycardia) (HCC); Translations: [VT (ventricular tachycardia) (HCC)] Onset: 03-18-2024 Past or Other Problems Problem Classification Problem Date Documented Date Episodic/Chronic Immunizations and screening for infectious disease (2 sources) Needs influenza immunization; Translations: [Encounter for immunization] Onset: 07-06-2024 07-06-2024 Episodic Other aftercare (16 sources) Drug therapy finding; Translations: [alf (current) use of anticoagulants] Onset: 07-27-2024 07-27-2024 Episodic Other circulatory disease (1 source) Personal history of other diseases of the circulatory system; Translations: [S/P ablation of atrial fibrillation] Onset: 09-10-2024 Episodic Residual codes; unclassified (20 sources) Prevention status; Translations: [Encounter for other specified prophylactic measures] Onset: 05-08-2009 05-08-2009 Episodic Residual codes; unclassified (1 source) Other specified postprocedural states; Translations: [S/P ablation of atrial fibrillation] Onset: 09-10-2024 Episodic Results Test Name Value Interpretation Reference Range Facility [facility] 01-24-2025 CNOV Office Visit (LINDA ) LINK ROSEN ([id number]) 1955 M Date Time Provider Department 01/24/25 3:00 PM EMANUEL SCOTT During your visit today, we recorded the following information about you: Pulse Blood pressure Weight 64/minute 116/76 168.1 kg Emanuel Scott MD 01/24/2025 3:26 PM [facility] [place] SECTION OF REGIONAL CARDIOLOGY OUTPATIENT VISIT DATE January 24, 2025 OUTPATIENT VISIT TYPE Established PRIMARY CARE PHYSICIAN: Kathleen Sams [address] [place] [address] REFERRING PHYSICIAN: Usman Lowry [address] [facility] [id number] C/C: Follow-up for atrial fibrillation Last and initial visit with me Jul 2024 HISTORY OF PRESENT ILLNESS: Mr. Rosen is a 69 year old male, seen in clinic today for follow-up for atrial fibrillation CV history reviewed, summarized and updated: Initial visit with il in Sep 2023-noted to be in Afib of unknown duration, first diagnosis. Status post DCCV November 05, 2023. Recurrence of A-Fib post DCCV Echocardiogram October 31, 2023-LVEF mildly decreased at 45%, RV normal size and function, dilated aorta at 4.9 cm. Was unable to complete stress SPECT due to A-Fib with RVR, had rest images only. S/p PVI/ablation with Dr. Pablo February 2024, with recurrence of atrial fibrillation post ablation Since prior visit with me, Repeat cardioversion in September 2024 Subsequently had follow-up with Dr. Pan in November 2024. No recurrence of atrial fibrillation since last DCCV. No chronic AED was recommended due to interaction with antirejection medications that he is on for his status post renal transplant. He is doing well since last cardioversion. No specific CV complaints today. Otherwise he denies any recurrent chest pain, shortness of breath, leg swelling and symptoms consistent with orthopnea and/or PND. 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 Never smoker. REVIEW OF SYSTEMS: 10 systems reviewed and are negative with the exception of pertinent positives described in HPI PHYSICAL EXAMINATION: BP 116/76 Pulse 64 Wt (!) 168.1 kg (370 lb 9.5 oz) BMI 36.93 kg/m? General: No acute distress, appears comfortable [...] Normal mood and affect CARDIOVASCULAR MEDICINE TESTING: Reviewed echocardiogram done today, January 24, 2025. LVEF 61%, RV normal size and function, aorta dilated with maximum dimension of 4.4 cm at the sinus, 4.3 cm at the mid ascending aorta PAST MEDICAL HISTORY Diagnosis Date Arthritis Atrial fibrillation (HCC) 09/10/2024 Coronary atherosclerosis of unspecified type of vessel, [place] or graft Mild 3-vessel Coronary artery disease Hypertension Polycystic kidney, unspecified type 09/08/1993 S/p cadaver renal transplant (HCC) Umbilical hernia PAST SURGICAL HISTORY Procedure Laterality Date LAPAROSCOPY REPAIR INCISIONAL HERNIA REDUCIBLE 2001 umbilical PAST SURGICAL HISTORY OF 07/27/07 Colon Polypectomy- Tubular Adenoma PAST SURGICAL HISTORY OF 10/17 Placement of Left UE AVF x 2 TONSILLECTOMY PRIMARY/SECONDARY Tonsillectomy SOCIAL HISTORY Social History Tobacco Use Smoking status: Never Smokeless tobacco: Never Vaping Use Vaping status: Never Used Substance Use Topics Alcohol use: No Comment: no alcohol > 2 yrs, no previous hx of abuse Drug use: No FAMILY HISTORY Problem Relation Age of Onset other (Polycystic Kidney [Other]) Mother other (Polycystic Kidney [Other]) Brother other (CVA [Other]) Father Emphysema Father ALLERGIES: ALLERGIES No Known Allergies CURRENT MEDICATIONS: mycophenolate mofetil (CELLCEPT) 250 mg capsule TAKE 2 CAPSULES BY MOUTH TWICE DAILY metoprolol tartrate, short acting, (LOPRESSOR) 25 mg tablet TAKE 1 AND 1/2 TABLETS BY MOUTH TWICE DAILY (Patient taking differently: Take 50 mg by mouth every 12 hours.) tacrolimus IR (PROGRAF) 1 mg capsule Take(1) capsule by mouth twice daily hydrOXYzine HCl (ATARAX) 25 mg tablet Take 25 mg by mouth once daily as needed. sulfamethoxazole-trime thoprim (BACTRIM) 400-80 mg per tablet Take 1 tablet by mouth every Friday, Friday, and Friday. predniSONE (DELTASONE) 5 mg tablet take 1 tablet by mouth once daily rivaroxaban (XARELTO) 20 mg tablet Take 1 tablet by mouth daily with dinner. gabapentin (NEURON (more content not included)... 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 [facility] ALYCE LINDA During your visit today, we recorded the following information about you: Referring Provider: EMANUEL SCOTT [[id number]] Allergies As of Date: 01/24/2025 (No Known Allergies) Date Reviewed: 11/25/2024 Reviewed by: Amanda Ramirez MA - Fully Assessed Visit Diagnoses:Cardiomyopat hy, unspecified type (HCC) [I42.9] Aneurysm of ascending aorta without rupture [I71.21] Order(s):ECHO [[id number]] Order #: [id number]: 1 [] perflutren lipid microspheres 1.3 mL in NaCl (PF) 0.9% 10 mL injection (IMASTE)Disp: Rfl: Prescriptions as of 01/24/2025 - mycophenolate mofetil (CELLCEPT) 250 mg capsule TAKE 2 CAPSULES BY MOUTH TWICE DAILY - metoprolol tartrate, short acting, (LOPRESSOR) 25 mg tablet TAKE 1 AND 1/2 TABLETS BY MOUTH TWICE DAILY - tacrolimus IR (PROGRAF) 1 mg capsule Take(1) capsule by mouth twice daily - hydrOXYzine HCl (ATARAX) 25 mg tablet Take 25 mg by mouth once daily as needed. - sulfamethoxazole-trime thoprim (BACTRIM) 400-80 mg per tablet Take 1 tablet by mouth every Friday, Friday, and Friday. - predniSONE (DELTASONE) 5 mg tablet take 1 tablet by mouth once daily - metoprolol tartrate, short acting, (LOPRESSOR) 50 mg tablet Take 1 tablet by mouth two times a day. - rivaroxaban (XARELTO) 20 mg tablet Take 1 tablet by mouth daily with dinner. - gabapentin (NEURONTIN) 300 mg capsule Take 300 mg by mouth twice daily. - CALCIUM CARBONATE/VITAMIN D3 (CALCIUM + D ORAL) Take one(1) tablet two(2) times daily. Meds Comments as of 02/22/2010: Patient states he doesn't always take Pepcid. 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] 05/08/2009 S/p cadaver renal transplant [Z94.0] Umbilical hernia [K42.9] PAF (paroxysmal atrial fibrillation) (HCC) [I48*09/30/2023 Cardiomyopathy (HCC) [I42.9] 11/10/2023 Aneurysm of ascending aorta without rupture (HC*11/10/2023 S/P ablation of atrial fibrillation [Z98.890, Z*03/06/2024 On continuous oral anticoagulation [Z79.01] 07/27/2024 Atrial fibrillation, persistent (HCC) [I48.19] 09/10/2024 Prescriptions ordered this encounter Disp Refills Start End PERFLUTREN LIPID MICROSPHERES 1.1 MG* 01/24/2025 01/24/2025 Route: INTRAVENOUS Encounter Status:Closed by HANNY MOULTON on 01/24/25 Normal [facility] ECHOon 01-24-2025 CONCLUSIONS: - Technically difficult exam due to body habitus. - Exam indication: CM - The left ventricle is normal in size. Left ventricular systolic function is normal. EF = 61 5% (2D biplane) Definity contrast used for endocardial border detection. Normal left ventricular diastolic function. - The right ventricle is normal in size. Right ventricular systolic function is normal. - The visualized aorta is dilated with a maximal dimension of 4.4 cm at the sinus, 4.3 cm at the mid-ascending aorta. - Exam was compared with the prior echocardiographic exam performed on 10/31/2023. Ascending aorta wall was not well defined on prior study, so suspect prior measurement of 4.8 cm was inaccurate. Otherwise similar findings. * * * Final * * * [facility] Echocardiography Report: Transthoracic Echo [facility] Date of service: 01/24/2025 1:39:57 PM RINK ATTENDANT Ordering physician: EMANUEL SCOTT Indication: CM Technologist: Malissa Beck RVT Interpreting physician: Emanuel Scott MD PATIENT: Name: MR. LINK ROSEN : 1955 Age: 69 years Gender: M History of hypertension, chronic kidney disease, dyslipidemia and arrhythmia. Previous cardiovascular interventions: Cardioversion (03/18/2024, 09/10/2024) Primary rhythm: sinus. Height: 213.40 cm BSA: 3.19 m Weight: 171.60 kg BMI: 37.7 kg/m Heart rate 71 bpm Blood pressure 137/67 mmHg Technically difficult exam due to body habitus. Color Doppler was utilized to interrogate the cardiac valves assessed and spectral Doppler was utilized to determine the flow velocities and pressure gradients reported in this exam. MEASUREMENTS: Value Indexed Normal Max aortic dimension 4.4 cm Ao < 3.8 Left atrial volume 103 ml (Aviles's) 33 ml/m Kiesha <= 34 LV ID (diastole) 5.9 cm (2D) 1.86 cm/m LV ID (systole) 3.8 cm (2D) 1.19 cm/m IVS, leaflet tips 1.0 cm (2D) Posterior wall thickness 1.0 cm (2D) Left ventricular mass 248 g (2D) 78 g/m LV stroke volume 117 ml (2D biplane) LV end diastolic volume 190 ml (2D biplane) 59.7 ml/m 34<=EDVi<75 LV end systolic volume 73 ml (2D biplane) 23.0 ml/m Ejection Fraction 61 % (2D biplane) EF > 52 FINDINGS: LEFT VENTRICLE The left ventricle is normal in size. Left ventricular systolic function is normal. Normal left ventricular diastolic function. Mitral annular lateral E/e': 7.6. Mitral annular septal E/e': 11.0. Definity contrast used for endocardial border detection. Wall Motion: All scored segments are normal. RIGHT VENTRICLE The right ventricle is normal in size. Right ventricular systolic function is normal. RV systolic tissue Doppler velocity is 14.6 cm/s. Tricuspid annular displacement is 2.8 cm. Estimated right ventricular systolic pressure is not reported due to an insufficient tricuspid regurgitation signal. Estimated right atrial pressure is not included as the IVC was not seen. LEFT ATRIUM The left atrial cavity is normal in size. RIGHT ATRIUM Unable to reliably measure RA volume due to technical limitations. MITRAL VALVE The mitral valve leaflets are structurally normal. There is trace mitral valve regurgitation. The pressure half time is 61 msec. The peak mitral E/A ratio is 1.70. The average mitral E/e' ratio is 9.3. The mitral flow deceleration time is 209 msec. TRICUSPID VALVE The tricuspid valve leaflets are structurally normal. There is trace tricuspid valve regurgitation. AORTIC VALVE There is no aortic valve regurgitation. Tricuspid aortic valve. There is mild thickening. PULMONIC VALVE The pulmonic valve was not seen or not interrogated. There is mild (1+) pulmonic valve regurgitation. AORTA The visualized aorta is dilated. Measurements - Aortic valve annulus 2.9 cm. Sinus: 4.4 cm. Sinotubular junction 3.7 cm. Mid ascending aorta 4.3 cm. Distal ascending aorta 3.9 cm. Mid arch 3.5 cm. INTERATRIAL SEPTUM There is no evidence of intracardiac shunting as detected by Doppler. INTERVENTRICULAR SEPTUM There is no flow through the interventricular septum as detected by Doppler. PERICARDIUM There is no pericardial effusion. [facility] Echocardiography Echocardiography Report: Transthoracic Echo [facility] Date of service: 01/24/2025 1:39:57 PM RINK ATTENDANT Ordering physician: EMANUEL SCOTT Indication: CM Technologist: Malissa Beck RVT Interpreting physician: Emanuel Scott MD PATIENT: Name: MR. LINK ROSEN : 1955 Age: 69 years Gender: M History of hypertension, chronic kidney disease, dyslipidemia and arrhythmia. Previous cardiovascular interventions: Cardioversion (03/18/2024, 09/10/2024) Primary rhythm: sinus. Height: 213.40 cm BSA: 3.19 m Weight: 171.60 kg BMI: 37.7 kg/m Heart rate 71 bpm Blood pressure 137/67 mmHg Technically difficult exam due to body habitus. Color Doppler was utilized to interrogate the cardiac valves assessed and spectral Doppler was utilized to determine the flow velocities and pressure gradients reported in this exam. MEASUREMENTS: Value Indexed Normal Max aortic dimension 4.4 cm Ao < 3.8 Left atrial volume 103 ml (Aviles's) 33 ml/m Kiesha <= 34 LV ID (diastole) 5.9 cm (2D) 1.86 cm/m LV ID (systole) 3.8 cm (2D) 1.19 cm/m IVS, leaflet tips 1.0 cm (2D) Posterior wall thickness 1.0 cm (2D) Left ventricular mass 248 g (2D) 78 g/m LV stroke volume 117 ml (2D biplane) LV end diastolic volume 190 ml (2D biplane) 59.7 ml/m 34<=EDVi<75 LV end systolic volume 73 ml (2D biplane) 23.0 ml/m Ejection Fraction 61 % (2D biplane) EF > 52 FINDINGS: LEFT VENTRICLE The left ventricle is normal in size. Left ventricular systolic function is normal. Normal left ventricular diastolic function. Mitral annular lateral E/e': 7.6. Mitral annular septal E/e': 11.0. Definity contrast used for endocardial border detection. Wall Motion: All scored segments are normal. RIGHT VENTRICLE The right ventricle is normal in size. Right ventricular systolic function is normal. RV systolic tissue Doppler velocity is 14.6 cm/s. Tricuspid annular displacement is 2.8 cm. Estimated right ventricular systolic pressure is not reported due to an insufficient tricuspid regurgitation signal. Estimated right atrial pressure is not included as the IVC was not seen. LEFT ATRIUM The left atrial cavity is normal in size. RIGHT ATRIUM Unable to reliably measure RA volume due to technical limitations. MITRAL VALVE The mitral valve leaflets are structurally normal. There is trace mitral valve regurgitation. The pressure half time is 61 msec. The peak mitral E/A ratio is 1.70. The average mitral E/e' ratio is 9.3. The mitral flow deceleration time is 209 msec. TRICUSPID VALVE The tricuspid valve leaflets are structurally normal. There is trace tricuspid valve regurgitation. AORTIC VALVE There is no aortic valve regurgitation. Tricuspid aortic valve. There is mild thickening. PULMONIC VALVE The pulmonic valve was not seen or not interrogated. There is mild (1+) pulmonic valve regurgitation. AORTA The visualized aorta is dilated. Measurements - Aortic valve annulus 2.9 cm. Sinus: 4.4 cm. Sinotubular junction 3.7 cm. Mid ascending aorta 4.3 cm. Distal ascending aorta 3.9 cm. Mid arch 3.5 cm. INTERATRIAL SEPTUM There is no evidence of intracardiac shunting as detected by Doppler. INTERVENTRICULAR SEPTUM There is no flow through the interventricular septum as detected by Doppler. PERICARDIUM There is no pericardial effusion. CONCLUSIONS: - Technically difficult exam due to body habitus. - Exam indication: CM - The left ventricle is normal in size. Left ventricular systolic function is normal. EF = 61 5% (2D biplane) Definity contrast used for endocardial border detection. Normal left ventricular diastolic function. - The right ventricle is normal in size. Right ventricular systolic function is normal. - The visualized aorta is dilated with a maximal dimension of 4.4 cm at the sinus, 4.3 cm at the mid-ascending aorta. - Exam was compared with the prior CC echocardiographic exam performed on 10/31/2023. Ascending aorta wall was not well defined on prior study, so suspect prior measurement of 4.8 cm was inaccurate. Otherwise similar findings. * * * Final * * * CC [employer] [facility] Image : [id number] Normal [facility] CBC W Auto Differential pane l (Bld)on 11-30-2024 Basophils (Bld) [#/Vol] 0.04 10*3/uL Normal <0.11 [facility] Comment on above: Order Comment: Speci men Type: BLOOD SPECIMEN Ordering Facility: [facility] Address: [address] [place] [address] Performed By: #### 2 4323-8, 00925-7, 2777-1 #### [facility] CLIA [id number] [address] [place] [address] 42520 Basophils/100 WBC (Bld) 0.6 % Normal [facility] Comment on above: Order Comment: Speci men Type: BLOOD SPECIMEN Ordering Facility: [facility] Address: [address] [place] [address] Performed By: #### 2 4323-8, , 2776-09 #### [facility] CLIA [id number] [address] [place] [address] 56504 Differential cell count method Nom (Bld) Auto Normal [facility] Comment on above: Order Comment: Speci men Type: BLOOD SPECIMEN Ordering Facility: [facility] Address: [address] [place] [address] Performed By: #### 2 432-8, , 2776-09 #### [facility] CLIA [id number] [address] [place] [address] 88870 Eosinophils (Bld) [#/Vol] 0.16 10*3/uL Normal <0.46 [facility] Comment on above: Order Comment: Speci men Type: BLOOD SPECIMEN Ordering Facility: [facility] Address: [address] [place] [address] Performed By: #### 2 4322-8, , 2776-09 #### [facility] CLIA [id number] [address] [place] [address] 47806 Eosinophils/100 WBC (Bld) 2.4 % Normal [facility] Comment on above: Order Comment: Speci men Type: BLOOD SPECIMEN Ordering Facility: [facility] Address: [address] [place] [address] Performed By: #### 2 4323-8, , 2776-09 #### [facility] CLIA [id number] [address] [place] [address] 58530 Erythrocyte distribution width (RBC) [Ratio] 12.7 % Normal 11.5-15.0 [facility] Comment on above: Order Comment: Speci men Type: BLOOD SPECIMEN Ordering Facility: [facility] Address: [address] [place] [address] Performed By: #### 2 4323-8, , 2776-09 #### [facility] CLIA [id number] [address] [place] [address] 24771 Hematocrit (Bld) [Volume fraction] 44.3 % Normal 39.0-51.0 [facility] Comment on above: Order Comment: Speci men Type: BLOOD SPECIMEN Ordering Facility: [facility] Address: [address] [place], [place] [address] Performed By: #### 2 4323-8, , 2776-09 #### [facility] CLIA [id number] [address] [place] [address] 16149 Hemoglobin (Bld) [Mass/Vol] 15.1 g/dL Normal 13.0-17.0 [facility] Comment on above: Order Comment: Speci men Type: BLOOD SPECIMEN Ordering Facility: [facility] Address: [address] [place] [address] Performed By: #### 2 4323-8, , 2776-09 #### [facility] CLIA [id number] [address] [place] [address] 20610 Immature granulocytes (Bld) [#/Vol] 10*3/uL Normal <0.10 [facility] Comment on above: Order Comment: Speci men Type: BLOOD SPECIMEN Ordering Facility: [facility] Address: [address] [place] [address] Performed By: #### 2 4323-8, , 2776-09 #### [facility] CLIA [id number] [address] [place] [address] 68974 Immature granulocytes/100 WBC (Bld) 0.3 % Normal [facility] Comment on above: Order Comment: Speci men Type: BLOOD SPECIMEN Ordering Facility: [facility] Address: [address] [place] [address] Performed By: #### 2 4323-8, , 2776-09 #### [facility] CLIA [id number] [address] [place] [address] 56630 Lymphocytes (Bld) [#/Vol] 2.71 10*3/uL Normal 1.00-4.00 [facility] Comment on above: Order Comment: Speci men Type: BLOOD SPECIMEN Ordering Facility: [facility] Address: [address] [place] [address] Performed By: #### 2 4323-8, , 2776-09 #### [facility] CLIA [id number] [address] [place] [address] 14853 Lymphocytes/100 WBC (Bld) 40.2 % Normal [facility] Comment on above: Order Comment: Speci men Type: BLOOD SPECIMEN Ordering Facility: [facility] Address: [address] [place] [address] Performed By: #### 2 4323-8, , 2776-09 #### [facility] CLIA [id number] [address] [place] [address] 17774 MCH (RBC) [Entitic mass] 32.1 pg Normal 26.0-34.0 [facility] Comment on above: Order Comment: Speci men Type: BLOOD SPECIMEN Ordering Facility: [facility] Address: [address] [place] [address] Performed By: #### 2 4323-8, , 2776-09 #### [facility] CLIA [id number] [address] [place] [address] 97174 MCHC (RBC) [Mass/Vol] 34.1 g/dL Normal 30.5-36.0 [facility] Comment on above: Order Comment: Speci men Type: BLOOD SPECIMEN Ordering Facility: [facility] Address: [address] [place] [address] Performed By: #### 2 4323-8, , 2776-09 #### [facility] CLIA [id number] [address] [place] [address] 76398 MCV (RBC) [Entitic vol] 94.1 fL Normal 80.0-100.0 [facility] Comment on above: Order Comment: Speci men Type: BLOOD SPECIMEN Ordering Facility: [facility] Address: [address] [place] [address] Performed By: #### 2 4323-8, , 2776-09 #### [facility] CLIA [id number] [address] [place] [address] 36303 Monocytes (Bld) [#/Vol] 0.54 10*3/uL Normal <0.87 [facility] Comment on above: Order Comment: Speci men Type: BLOOD SPECIMEN Ordering Facility: [facility] Address: [address] [place] [address] Performed By: #### 2 4323-8, , 2776-09 #### [facility] CLIA [id number] [address] [place] [address] 34159 Monocytes/100 WBC (Bld) 8.0 % Normal [facility] Comment on above: Order Comment: Speci men Type: BLOOD SPECIMEN Ordering Facility: [facility] Address: [address] [place] [address] Performed By: #### 2 432-8, , 2776-09 #### [facility] CLIA [id number] [address] [place] [address] 20100 Neutrophils (Bld) [#/Vol] 3.27 10*3/uL Normal 1.45-7.50 [facility] Comment on above: Order Comment: Speci men Type: BLOOD SPECIMEN Ordering Facility: [facility] Address: [address] [place] [address] Performed By: #### 2 4323-8, , 2776-09 #### [facility] CLIA [id number] [address] [place] [address] 56930 Neutrophils/100 WBC (Bld) 48.5 % Normal [facility] Comment on above: Order Comment: Speci men Type: BLOOD SPECIMEN Ordering Facility: [facility] Address: [address] [place] [address] Performed By: #### 2 4323-8, , 2776-09 #### [facility] CLIA [id number] [address] [place] [address] Nucleated RBC (Bld) [#/Vol] 10*3/uL Normal <0.01 [facility] Comment on above: Order Comment: Speci men Type: BLOOD SPECIMEN Ordering Facility: [facility] Address: [address] [place] [address] Performed By: #### 2 4323-8, , 2776-09 #### [facility] CLIA [id number] [address] [place] [address] 62423 Nucleated RBC/100 WBC (Bld) [Ratio] 0.0 /100 WBC Normal [facility] Comment on above: Order Comment: Speci men Type: BLOOD SPECIMEN Ordering Facility: [facility] Address: [address] [place] [address] Performed By: #### 2 4323-8, , 2776-09 #### [facility] CLIA [id number] [address] [place] [address] 24927 Platelet mean volume (Bld) [Entitic vol] 9.0 fL Normal 9.0-12.7 [facility] Comment on above: Order Comment: Speci men Type: BLOOD SPECIMEN Ordering Facility: [facility] Address: [address] [place] [address] Performed By: #### 2 4323-8, , 2776-09 #### [facility] CLIA [id number] [address] [place] [address] 54800 Platelets (Bld) [#/Vol] 153 10*3/uL Normal 150-400 [facility] Comment on above: Order Comment: Speci men Type: BLOOD SPECIMEN Ordering Facility: [facility] Address: [address] [place] [address] Performed By: #### 2 4323-8, , 2776- #### [facility] CLIA [id number] [address] [place] [address] 40517 RBC (Bld) [#/Vol] 4.71 10*6/uL Normal 4.20-6.00 [facility] Comment on above: Order Comment: Speci men Type: BLOOD SPECIMEN Ordering Facility: [facility] Address: [address] [place] [address] Performed By: #### 2 4323-8, 56916-9, 2776- #### [facility] CLIA [id number] [address] [place] [address] 42692 WBC (Bld) [#/Vol] 6.74 10*3/uL Normal 3.70-11.00 [facility] Comment on above: Order Comment: Speci men Type: BLOOD SPECIMEN Ordering Facility: [facility] Address: [address] [place] [address] Performed By: #### 2 4323-8, 30537-7, 2776- #### [facility] CLIA [id number] [address] [place] [address] 45048 Comprehensive metabolic 2000 panelon 11-30-2024 Albumin [Mass/Vol] 4.1 g/dL Normal 3.9-4.9 [facility] Comment on above: Order Comment: Speci men Type: BLOOD SPECIMEN Ordering Facility: [facility] Address: [address] [place] [address] Performed By: #### 2 4323-8, 75109-0, 2776- #### [facility] CLIA [id number] [address] [place] [address] 82459 ALP [Catalytic activity/Vol] 64 U/L Normal 38-113 [facility] Comment on above: Order Comment: Speci men Type: BLOOD SPECIMEN Ordering Facility: [facility] Address: [address] [place] [address] Performed By: #### 2 4323-8, 10324-6, 2776- #### [facility] CLIA [id number] [address] [place] [address] 07758 ALT [Catalytic activity/Vol] 10 U/L Normal 10-54 [facility] Comment on above: Order Comment: Speci men Type: BLOOD SPECIMEN Ordering Facility: [facility] Address: [address] [place] [address] Performed By: #### 2 4323-8, , 2776-09 #### [facility] CLIA [id number] [address] [place] [address] 57341 Anion gap [Moles/Vol] 12 mmol/L Normal 8-15 [facility] Comment on above: Order Comment: Speci men Type: BLOOD SPECIMEN Ordering Facility: [facility] Address: [address] [place] [address] Performed By: #### 2 4323-8, , 2776-09 #### [facility] CLIA [id number] [address] [place] [address] 31079 AST [Catalytic activity/Vol] 16 U/L Normal 14-40 [facility] Comment on above: Order Comment: Speci men Type: BLOOD SPECIMEN Ordering Facility: [facility] Address: [address] [place] [address]82 Performed By: #### 2 4323-8, , 2776-09 #### [facility] CLIA [id number] [address] [place] [address] 13367 Bilirubin [Mass/Vol] 1.4 mg/dL High 0.2-1.3 [facility] Comment on above: Order Comment: Speci men Type: BLOOD SPECIMEN Ordering Facility: [facility] Address: [address] [place] [address] Performed By: #### 2 4323-8, , 2776-09 #### [facility] CLIA [id number] [address] [place] [address] 10353 Calcium [Mass/Vol] 9.6 mg/dL Normal 8.5-10.2 [facility] Comment on above: Order Comment: Speci men Type: BLOOD SPECIMEN Ordering Facility: [facility] Address: [address] [place] [address]83 Performed By: #### 2 4323-8, 55659-6, 2776-09 #### [facility] CLIA [id number] [address] [place] [address] Chloride [Moles/Vol] 109 mmol/L High 98-107 [facility] Comment on above: Order Comment: Speci men Type: BLOOD SPECIMEN Ordering Facility: [facility] Address: [address] [place] [address] Performed By: #### 2 4323-8, , 2776-09 #### [facility] CLIA [id number] [address] [place] [address] 71929 CO2 [Moles/Vol] 24 mmol/L Normal 22-30 [facility] Comment on above: Order Comment: Speci men Type: BLOOD SPECIMEN Ordering Facility: [facility] Address: [address] [place] [address] Performed By: #### 2 4323-8, , 2776-09 #### [facility] CLIA [id number] [address] [place] [address] 46606 Creatinine [Mass/Vol] 1.31 mg/dL High 0.73-1.22 [facility] Comment on above: Order Comment: Speci men Type: BLOOD SPECIMEN Ordering Facility: [facility] Address: [address] [place] [address] Performed By: #### 2 4323-8, , 2776-09 #### [facility] CLIA [id number] [address] [place] [address] 60498 Creatinine and Glomerular filtration rate.predicted panel (S/P/Bld) 60 mL/min/1.73m??? Normal >=60 [facility] Comment on above: Order Comment: Speci men Type: BLOOD SPECIMEN Ordering Facility: [facility] Address: [address] [place] [address] Result Comment: Katalina mated Glomerular Filtration Rate [...] Performed By: #### 2 4323-8, , 2776-09 #### [facility] CLIA [id number] [address] [place] [address] Glucose [Mass/Vol] 121 mg/dL High 74-99 [facility] Comment on above: Order Comment: Anitra echeverria Type: BLOOD SPECIMEN Ordering Facility: [facility] Address: [address] [place] [address] Result Comment: The [place] [employer] (ADA) provides guidance for cutoff [...] Standards of Medical Care in Diabetes 2016, [place] [employer]. Diabetes Care. 2016.39(Suppl 1). Performed By: #### 2 4323-8, , 2776-09 #### [facility] CLIA [id number] [address] [place] [address] 79812 Potassium [Moles/Vol] 4.3 mmol/L Normal 3.7-5.1 [facility] Comment on above: Order Comment: Anitra echeverria Type: BLOOD SPECIMEN Ordering Facility: [facility] Address: [address] [place] [address] Performed By: #### 2 4323-8, , 2776-09 #### [facility] CLIA [id number] [address] [place] [address] Protein [Mass/Vol] 6.0 g/dL Low 6.3-8.0 [facility] Comment on above: Order Comment: Speci men Type: BLOOD SPECIMEN Ordering Facility: [facility] Address: [address] [place] [address]48 Performed By: #### 2 4323-8, , 2776-09 #### [facility] CLIA [id number] [address] [place] [address] 87047 Sodium [Moles/Vol] 145 mmol/L High 136-144 [facility] Comment on above: Order Comment: Speci men Type: BLOOD SPECIMEN Ordering Facility: [facility] Address: [address] [place] [address]06 Performed By: #### 2 4323-8, , 2776-09 #### [facility] CLIA [id number] [address] [place] [address] 44171 Urea nitrogen [Mass/Vol] 15 mg/dL Normal 9-24 [facility] Comment on above: Order Comment: Speci men Type: BLOOD SPECIMEN Ordering Facility: [facility] Address: [address] [place] [address] 9[address]77 Performed By: #### 2 4323-8, , 2776-09 #### [facility] CLIA [id number] [address] [place] [address] 52678 Magnesium SerPl-mCncon 11-30 Magnesium [Mass/Vol] 1.6 mg/dL Low 1.7-2.3 [facility] Comment on above: Order Comment: Speci men Type: BLOOD SPECIMEN Ordering Facility: [facility] Address: [address] [place] [address] 77070 Performed By: #### 2 4323-8, , 2776-09 #### [facility] CLIA [id number] [address] [place] [address] 36005 Phosphate SerPl-mCncon 11-30 Phosphate [Mass/Vol] 2.9 mg/dL Normal 2.7-4.8 [facility] Comment on above: Order Comment: Anitra echeverria Type: BLOOD SPECIMEN Ordering Facility: [facility] Address: [address] [place] [address] Performed By: #### 2 4323-8, 96981-5, 2777-1 #### [facility] CLIA [id number] [address] [place] [address] 92725 Tacrolimus Bld-mCncon 2024 Tacrolimus (Bld) [Mass/Vol] 7.1 ng/mL Normal 5.0-20.0 [facility] Comment on above: Order Comment: Anitra echeverria Type: BLOOD SPECIMEN Ordering Facility: [facility] Address: [address] [place] [address] Result Comment: Olivia vidualized target levels for [...] situation. Test performed by chemiluminescent immunoassay using [employer] i. Performed By: #### 2 4323-8, 24055-0, 2777-1 #### [facility] CLIA [id number] [address] [place] [address] 03510 CNOVon 11-25-2024 CNOV Office Visit (CAEPLN ) LINK ROSEN ([id number]) 1955 M Date Time Provider Department 11/25/24 1:30 PM WEI PABLO [facility] During your visit today, we recorded the following information about you: Pulse Blood pressure Weight 80/minute 132/82 167.9 kg Wei Pablo MD 11/25/2024 1:41 PM Signed [facility] OUTPATIENT VISIT DATE November 25, 2024 OUTPATIENT VISIT TYPE ESTABLISHED PRIMARY CARE PHYSICIAN: [place] [address] CHIEF COMPLAINT: Persistent afib HISTORY OF PRESENT ILLNESS: Mr. Rosen is a 69 year old male with NICM, obesity, persistent AF , afib ablation in 02/2024. Had recurrence in September 2024 and underwent DCCV into sinus rhythm. No new recurrence since last DCCV. No chest pain. He has Polycystic kidney s/p renal transplant and on anti-rejection meds which relatively precluded rn family AAD ( due to risk of bxgn-ptau-uqzifolptvd) . IMPRESSION: Persistent AF: S/p PVI in 02/2024 and DCCV in 09/2024. In sinus rhythm. Doing well. F/u in 1 year. Continue re-do afib ablation if further recurrence in the near future. PLAN AND RECOMMENDATIONS: Persistent AF: S/p PVI in 02/2024 and DCCV in 09/2024. In sinus rhythm. Doing well. F/u in 1 year. Continue re-do afib ablation if further recurrence in the near future. PHYSICAL EXAMINATION: There were no vitals taken [...] Last EKG Result Conclusion ECG COMPLETE Collected: 11/05/2024 12:54 PM (Final result) Impression: NORMAL SINUS RHYTHM LEFT ANTERIOR FASCICULAR BLOCK ABNORMAL ECG Confirmed by SANDRA DARBY M.D. ([id number]) on 11/07/2024 9:59:05 PM PAST CARDIAC HISTORY: See below PAST MEDICAL HISTORY Diagnosis Date Arthritis Atrial fibrillation (HCC) 09/10/2024 Coronary atherosclerosis of unspecified type of vessel, [place] or graft Mild 3-vessel Coronary artery disease Hypertension Polycystic kidney, unspecified type 09/08/1993 S/p cadaver renal transplant Umbilical hernia PAST SURGICAL HISTORY Procedure Laterality Date LAPAROSCOPY REPAIR INCISIONAL HERNIA REDUCIBLE 2001 umbilical PAST SURGICAL HISTORY OF 07/27/07 Colon Polypectomy- Tubular Adenoma PAST SURGICAL HISTORY OF 10/17 Placement of Left UE AVF x 2 TONSILLECTOMY PRIMARY/SECONDARY Tonsillectomy Social History Tobacco Use Smoking status: Never Smokeless tobacco: Never Vaping Use Vaping status: Never Used Substance Use Topics Alcohol use: [...] capsules by mouth two times a day. tacrolimus IR (PROGRAF) 1 mg capsule Take(1) capsule by mouth twice daily hydrOXYzine HCl (ATARAX) 25 mg tablet Take 25 mg by mouth once daily as needed. sulfamethoxazole-trime thoprim (BACTRIM) 400-80 mg per tablet Take 1 tablet by mouth every Friday, Friday, and Friday. predniSONE (DELTASONE) 5 mg tablet take 1 tablet by mouth once daily metoprolol tartrate, short acting, (LOPRESSOR) 50 mg tablet Take 1 tablet by mouth two times a day. rivaroxaban (XARELTO) 20 mg tablet Take 1 tablet by mouth daily with dinner. gabapentin (NEURONTIN) 300 mg capsule Take 30 (more content not included)... Normal [facility] ECG COMPLETEon 11-25-2024 ECG COMPLETE Ventricular Rate : 8 1 BPM Atrial Rate : 81 BPM P-R Interval : 204 ms QRS Duration : 112 ms Q-T Interval : 406 ms QTC Calculation(Bazett) : 471 ms Calculated P [place] : 18 degrees Calculated R [place] : -74 degrees Calculated T [place] : 37 degrees SINUS RHYTHM WITH PREMATURE ATRIAL COMPLEXES LEFT ANTERIOR FASCICULAR BLOCK CANNOT EXCLUDE ANTERIOR MYOCARDIAL INFARCTION , AGE UNDETERMINED ABNORMAL ECG Confirmed by GRIS RAMIREZ DO ([id number]) on 11/28/2024 10:00:48 AM NAME : LINK ROSEN PID : [id number] : 1955 Gender : Male Race : ORD : [id number] Procedure Date : Nov 25 2024 13:33:00 Edit Date : Nov 28 2024 10:00:50 Diagnosis: SINUS RHYTHM WITH PREMATURE ATRIAL COMPLEXES LEFT ANTERIOR FASCICULAR BLOCK CANNOT EXCLUDE ANTERIOR MYOCARDIAL INFARCTION , AGE UNDETERMINED ABNORMAL ECG Confirmed by GRIS RAMIREZ DO ([id number]) on 11/28/2024 10:00:48 AM Test Reason : I48.19 Atrial fibrillation, persistent (HCC) Location : 145 : LOCARD Overread By : GRIS RAMIREZ DO Edited By : GRIS RAMIREZ DO Referred By : Bev Acquired by : Yury quick [facility] CNOVon 11-05-2024 CNOV Office Visit (CAEPAV ) LINK ROSEN ([id number]) 1955 M Date Time Provider Department 11/05/24 1:00 PM MELISA BRICEÑO CAEPDONALD During your visit today, we recorded the following information about you: Temperature Pulse Respiration Blood pressure 97.8 degrees 71/minute 22/minute 124/72 Weight 167.5 kg Melisa Briceño APRN.CNP 11/05/2024 1:26 PM Signed [facility] [place] Department of Cardiovascular Medicine SECTION OF ELECTROPHYSIOLOGY AND PACING OUTPATIENT VISIT DATE November 05, 2024 OUTPATIENT VISIT TYPE ESTABLISHED PRIMARY CARE PHYSICIAN: Kathleen Mckeon [facility])[place] [address] CHIEF COMPLAINT: Follow Up HISTORY OF PRESENT ILLNESS: Mr. Rosen is a 69 year old male, patient of Dr. Pablo and Dr. Scott, who presents today for a cardiovascular medicine follow-up visit regarding atrial fibrillation s/p EPS:PVI 03/05. He was evaluated by myself in March of 2024 qt which time recurrence of atrial fibrillation was noted. He was placed on oral amiodarone. DCCV was completed early September, which was successful s/p 2nd shock at 360 Joules, to sinus rhythm. Since then, Mr. Rosen reports that from a cardiac perspective, he is feeling well. He does continue to have multiple joint aches and pains which has limited his ability to be active. PMH: Persistent atrial fibrillation s/p EPS:PVI, reported CAD, hypertension, dyslipidemia, HFmrEF (~45%), polycystic renal disease s/p renal transplant, PAST MEDICAL HISTORY Diagnosis Date Arthritis Atrial fibrillation (HCC) 09/10/2024 Coronary atherosclerosis of unspecified type of vessel, [place] or graft Mild 3-vessel Coronary artery disease Hypertension Polycystic kidney, unspecified type 09/08/1993 S/p cadaver renal transplant Umbilical hernia PAST SURGICAL HISTORY Procedure Laterality Date LAPAROSCOPY REPAIR INCISIONAL HERNIA REDUCIBLE 2001 umbilical PAST SURGICAL HISTORY OF 07/27/07 Colon Polypectomy- Tubular Adenoma PAST SURGICAL HISTORY OF 10/17 Placement of Left UE AVF x 2 TONSILLECTOMY PRIMARY/SECONDARY Tonsillectomy SOCIAL HISTORY Social History Tobacco Use Smoking status: Never Smokeless tobacco: Never Vaping Use Vaping status: Never Used Substance Use Topics Alcohol use: No Comment: no alcohol > 2 yrs, no previous hx of abuse Drug use: No FAMILY HISTORY Problem Relation Age of Onset other (Polycystic Kidney [Other]) Mother other (Polycystic Kidney [Other]) Brother other (CVA [Other]) Father Emphysema Father ALLERGIES No Known Allergies MEDICATIONS: tacrolimus IR (PROGRAF) 1 mg capsule Take(1) capsule by mouth twice daily hydrOXYzine HCl (ATARAX) 25 mg tablet Take 25 mg by mouth once daily as needed. sulfamethoxazole-trime thoprim (BACTRIM) 400-80 mg per tablet Take 1 tablet by mouth every Friday, Friday, and Friday. predniSONE (DELTASONE) 5 mg tablet take 1 tablet by mouth once daily metoprolol tartrate, short acting, (LOPRESSOR) 50 mg tablet Take 1 tablet by mouth two times a day. rivaroxaban (XARELTO) 20 mg tablet Take 1 tablet by mouth daily with dinner. mycophenolate mofetil (CELLCEPT) 250 mg capsule Take 2 capsules by mouth two times a day. gabapentin (NEURONTIN) 300 mg capsule Take 300 mg by mouth twice daily. CALCIUM CARBONATE/VITAMIN D3 (CALCIUM + D ORAL) Take one(1) tablet two(2) times daily. REVIEW OF SYSTEMS: ROS is otherwise negative apart from what has been documented in HPI PHYSICAL EXAMINATION: BP 124/72 Pulse 71 Temp 36.6 ?C (97.8 ?F) (Temporal) Resp 22 Wt (!) 167.5 kg (369 lb 4.3 oz) SpO2 99% BMI 36.80 kg/m? General: Well appearing, in no acute distress, speaking in complete sentences. Skin: No clubbing, no cyanosis. Neck: No jugular venous distention, no carotid bruits Lungs: Clear to auscultation bilaterally, no wheezing or rhonchi. Heart: Regular rate and rhythm Abdomen: Soft, nontender, bowel sounds present Extremities: No peripheral edema . Grade 2/4 distal pulses bilaterally. Neuro: Oriented to person, place and time, alert, cooperative. CARDIOVASCULAR MEDICINE TESTING: Labs: Latest Ref Rng 08/30/2024 WBC 3.70 - 11.00 k/uL 5.93 RBC 4.20 - 6.00 m/uL 4.67 Hemoglobin 13.0 - 17.0 g/dL 15.1 Hematocrit 39.0 - 51.0 % 43.8 MCV 80.0 - 100.0 fL 93.8 MCH 26.0 - 34.0 pg 32.3 MCHC 30.5 - 36.0 g/dL 34.5 RDW-CV 11.5 - 15.0 % 12.7 Platelet Count 150 - 400 k/uL 137 (L) Latest Ref Rng 08/30/2024 Glucose 74 - 99 mg/dL 110 (H) BUN 9 - 24 mg/dL 12 Creatinine 0.73 - 1.22 mg/dL 1.24 (H) Sodium 136 - 144 mmol/L 140 Potassium 3.7 - 5.1 mmol/L 4.3 Chloride 98 - 107 mmol/L 106 CO2 22 - 30 mmol/L 24 Anion Gap 8 - 15 mmol/L 10 eGFR >=60 mL/min/1.73m? 64 Magnesium 1.7 - 2.3 mg/dL 1.5 (L) ECG 11/05/2024: NSR VR 68 ECHO 10/31/2023: (more content not included)... Normal [facility] HVP15oa 11-05-2024 ECG01 Ventricular Rate : 6 8 BPM Atrial Rate : 68 BPM P-R Interval : 202 ms QRS Duration : 112 ms Q-T Interval : 422 ms QTC Calculation(Bazett) : 448 ms Calculated P [place] : 18 degrees Calculated R [place] : -69 degrees Calculated T [place] : 14 degrees NORMAL SINUS RHYTHM LEFT ANTERIOR FASCICULAR BLOCK ABNORMAL ECG Confirmed by SANDRA DARBY M.D. ([id number]) on 11/07/2024 9:59:05 PM NAME : LINK ROSEN PID : [id number] : 1955 Gender : Male Race : ORD : Procedure Date : Nov 05 2024 12:54:42 Edit Date : Nov 07 2024 21:59:11 Diagnosis: NORMAL SINUS RHYTHM LEFT ANTERIOR FASCICULAR BLOCK ABNORMAL ECG Confirmed by SANDRA DARBY M.D. ([id number]) on 11/07/2024 9:59:05 PM Test Reason : Location : 192 : AVCRD Overread By : SANDRA DARBY M.D. Edited By : SANDRA DARBY M.D. Referred By : , Acquired by : , Yury [facility] ANES POSTPROC EVALon 025 ANES POSTPROC EVAL HNO ID: [id number] Author: STEVEN AKERS MD Service: Anesthesiology Author Type: Anesthesiologist Type: Anesthesia Postprocedure Evaluation Filed: 09/10/2024 12:49 Note Text: POST ANESTHESIA EVALUATION NOTE : 1955 Procedure Summary Date: 09/10/24 Room / Location: CATH07 / FV CATH Anesthesia Start: 1119 Anesthesia Stop: 1130 Procedure: CARDIOVERSION EXTERNAL ELECTIVE Diagnosis: Atrial fibrillation, unspecified type (HCC) (Atrial fibrillation, unspecified type (HCC) [I48.91]) Surgeons: Wei Pablo MD Responsible Provider: Steven Akers MD Anesthesia Type: MAC ASA Status: 3 Anesthesia Type: MAC Last Vitals Vitals Value Taken Time BP 120/78 09/10/24 1200 Temp 36.9 ?C (98.4 ?F) 09/10/24 1132 HR SpO2 76 09/10/24 1200 Resp 23 09/10/24 1213 SpO2 98 % 09/10/24 1200 Vitals shown include unfiled device data. Post Anesthesia Patient Status Patient Evaluation: PACU. PACU/ICU Patient Condition: stable. Anticipated Disposition: phase 2 then home. Neurological Status: aware and responsive. Pulmonary Status: breathing comfortably on room air Airway Control: returned to baseline unsupported. Cardiovascular Status: stable. Pain Management: clinically adequate - multimodal analgesia pain management approach Postoperative Hydration: acceptable. Intraoperative Events: no significant anesthesia events Recommendation: continue current plan of care. Anesthesia Observations No Documentation SIGNATURE: Steven Akers MD PATIENT NAME: Link Rosen DATE: September 10, 2024 TIME: 12:49 PM CSN: [id number] [facility] ANES PRE-OPon 09-10-2024 ANES PRE-OP HNO ID: [id number] Author: STEVEN AKERS MD Service: Anesthesiology Author Type: Anesthesiologist Type: Anesthesia Preprocedure Evaluation Filed: 09/10/2024 10:24 Note Text: ANESTHESIOLOGY DAY OF SURGERY NOTE : 1955 Procedure Information Date/Time: 09/10/24 1100 Procedure: CARDIOVERSION EXTERNAL ELECTIVE - No device Location: CATH07 / [facility] CATH Surgeons: Wei Pablo MD Estimated body mass index is 37.26 kg/m? as calculated from the following: Height as of this encounter: 213.4 cm (7'). Weight as of this encounter: 169.6 kg (373 lb 14.4 oz). Most recent hematocrit and potassium results: Hematocrit 43.8 08/30/2024 Potassium 4.3 08/30/2024 Relevant Problems CARDIO (+) 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) (+) Atrial fibrillation (HCC) (+) PAF (paroxysmal atrial fibrillation) (HCC) -RENAL (+) 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) (+) Polycystic kidney disease NEURO-PSYCH (+) S/P ablation of atrial fibrillation I - PHYSICAL EVALUATION AIRWAY Patient intubated: No. Tracheostomy tube not present Mallampati: II. TM distance: >3 FB. Neck ROM: full ROM without neurological symptoms. Mouth opening: adequate. Short neck: no. Thick neck: no Carlos present: yes DENTAL Normal dental observations. Dental findings: teeth intact. Additional exam findings: no II - ANESTHESIA PLAN ASA Score: 3 Anesthetic Plan: MAC The patient is not a current smoker. NPO Status: adequate Anesthetic plan additional comments: Symptoms of Sleep Apnea: Denies Previous Anesthesia: No history of adverse event Family history of anesthetic problems: None Functional Capacity Assessment:Denies chest pain and SOB with exertion. Denies change in functional capacity. History of GERD: Yes- Well controlled with no positional symptoms Most recent lab results: Hemoglobin 15.1 08/30/2024 Hematocrit 43.8 08/30/2024 Potassium 4.3 08/30/2024 Platelet Count 137 08/30/2024 PT Sec 12.3 02/07/2012 APTT 31.5 04/24/2009 PT INR 1.1 02/07/2012 Creatinine 1.24 08/30/2024 . Beta Uriel Monitoring Plan Monitoring plan: Standard ASA. Post Procedure Analgesic Plan Postoperative analgesic plan: parenteral or oral opioids and multimodal analgesia. Informed Consent Anesthetic risks, benefits, alternatives, personnel and consent discussed: yes. Patient / Responsible [employer] Party agrees to proceed: yes Patient / Surrogate agrees to blood products: blood products not planned DNR status not reviewed with patient and/or family prior to surgery. Significant changes in the patient condition since the History and Physical, not otherwise documented in primary service progress note: no. Potential Anesthesia issues that may suggest increased risk of complications or contraindication to planned procedure: none. Vitals Value Taken Time BP 158/96 09/10/24 1016 Pulse 74 09/10/24 1016 Resp Temp 35.8 ?C (96.4 ?F) 09/10/24 1016 SpO2 97 % 09/10/24 1016 No current facility-administered medications on file as of 09/10/2024. Outpatient Medications as of 09/10/2024 Medication Sig hydrOXYzine HCl (ATARAX) 25 mg tablet Take 25 mg by mouth once daily as needed. sulfamethoxazole-trime thoprim (BACTRIM) 400-80 mg per tablet Take 1 tablet by mouth every Friday, Friday, and Friday. predniSONE (DELTASONE) 5 mg tablet take 1 tablet by mouth once daily metoprolol tartrate, short acting, (LOPRESSOR) 50 mg tablet Take 1 tablet by mouth two times a day. rivaroxaban (XARELTO) 20 mg tablet Take 1 tablet by mouth daily with dinner. mycophenolate mofetil (CELLCEPT) 250 mg capsule Take 2 capsules by mouth two times a day. tacrolimus IR (PROGRAF) 1 mg capsule Take(1) capsule by mouth twice daily gabapentin (NEURONTIN) 300 mg capsule Take 300 mg by mouth twice daily. CALCIUM CARBONATE/VITAMIN D3 (CALCIUM + D ORAL) Take one(1) tablet two(2) times daily. I have interviewed and examined the patient. I have reviewed the medical record and/or the pre-anesthesia evaluation, pertinent labs, and test results. This contains updated information obtained within 48 hours of Surgery/Procedure. SIGNATURE: Steven Akers MD PATIENT NAME: Link Rosen DATE: September 10, 2024 TIME: 10:23 AM CSN: [id number] Normal [facility] ECG COMPLETEon 09-10-2024 ECG COMPLETE Ventricular Rate : 8 9 BPM Atrial Rate : 104 BPM P-R Interval : 182 ms QRS Duration : 118 ms Q-T Interval : 384 ms QTC Calculation(Bazett) : 468 ms Calculated R [place] : -63 degrees Calculated T [place] : 82 degrees Atrial fibrillation Incomplete left bundle branch block Consider anterior infarct Abnormal ECG Confirmed by EDI GALEANO MD ([id number]) on 10/04/2024 10:04:57 AM NAME : LINK ROSEN PID : [id number] : 1955 Gender : Male Race : ORD : [id number] Procedure Date : Sep 10 2024 10:09:18 Edit Date : Oct 04 2024 10:05:01 Diagnosis: Atrial fibrillation Incomplete left bundle branch block Consider anterior infarct Abnormal ECG Confirmed by EDI GALEANO MD ([id number]) on 10/04/2024 10:04:57 AM Test Reason : Pre-OP Location : [facility] : FVEKG 13 Overread By : EDI GALEANO MD Edited By : EDI GALEANO MD Referred By : , Acquired by : [facility] EKGon 09-10-2024 Electrocardiogram Ventricular Rate : 7 4 BPM Atrial Rate : 73 BPM P-R Interval : 221 ms QRS Duration : 120 ms Q-T Interval : 431 ms QTC Calculation(Bazett) : 479 ms Calculated P [place] : -5 degrees Calculated R [place] : -63 degrees Calculated T [place] : 67 degrees Sinus rhythm Atrial premature complex Prolonged GA interval Incomplete left bundle branch block Confirmed by EDI GALEANO MD ([id number]) on 10/04/2024 10:10:54 AM NAME : LINK ROSEN PID : [id number] : 1955 Gender : Male Race : ORD : Procedure Date : Sep 10 2024 11:34:24 Edit Date : Oct 04 2024 10:11:00 Diagnosis: Sinus rhythm Atrial premature complex Prolonged GA interval Incomplete left bundle branch block Confirmed by EDI GALEANO MD ([id number]) on 10/04/2024 10:10:54 AM Test Reason : Location : 400 : FVEKG 13 Overread By : EDI GALEANO MD Edited By : EDI GALEANO MD Referred By : , Acquired by : Khushbu [facility] HISTORY PHYSICALon HISTORY PHYSICAL HNO ID: [id number] Author: ESTUARDO MURPHY APRN.[employer] SAL[employer] REPRESENTATIVE, DNP Service: Cardiovascular Disease Author Type: Nurse Practitioner Type: H&P Filed: 09/10/2024 10:42 Note Text: HISTORY AND PHYSICAL EXAMINATION SERVICE DATE: 09/10/2024 SERVICE TIME: 10:17 AM PROCEDUREALIST: Surgeons and Role: * Wei Pablo MD - Primary PRIMARY CARE PHYSICIAN: Kathleen Sams PA-C SUBJECTIVE CHIEF COMPLAINT: Atrial fibrillation HPI: This is a 69 year old male who presents for: CARDIOVERSION EXTERNAL ELECTIVE PAST MEDICAL HISTORY: PAST MEDICAL HISTORY Diagnosis Date Arthritis Atrial fibrillation (HCC) 09/10/2024 Coronary atherosclerosis of unspecified type of vessel, [place] or graft Mild 3-vessel Coronary artery disease Hypertension Polycystic kidney, unspecified type 09/08/1993 S/p cadaver renal transplant Umbilical hernia PAST [...] Never Smokeless tobacco: Never Vaping Use Vaping status: Never Used Substance Use Topics Alcohol use: No Comment: no alcohol > 2 yrs, no previous hx of abuse Drug use: No MEDICATIONS: Prior to Admission Medications hydrOXYzine HCl (ATARAX) 25 mg tablet, Take 25 mg by mouth once daily as needed., Disp: , Rfl: , 09/09/2024 sulfamethoxazole-trime thoprim (BACTRIM) 400-80 mg per tablet, Take 1 tablet by mouth every Friday, Friday, and Friday., Disp: , Rfl: , 09/10/2024 predniSONE (DELTASONE) 5 mg tablet, take 1 tablet by mouth once daily, Disp: 90 tablet, Rfl: 3, 09/10/2024 metoprolol tartrate, short acting, (LOPRESSOR) 50 mg tablet, Take 1 tablet by mouth two times a day., Disp: 180 tablet, Rfl: 3, 09/10/2024 rivaroxaban (XARELTO) 20 mg tablet, Take 1 tablet by mouth daily with dinner., Disp: 90 tablet, Rfl: 3, 09/09/2024 mycophenolate mofetil (CELLCEPT) 250 mg capsule, Take 2 capsules by mouth two times a day., Disp: 360 capsule, Rfl: 3, 09/10/2024 tacrolimus IR (PROGRAF) 1 mg capsule, Take(1) capsule by mouth twice daily, Disp: 180 capsule, Rfl: 3, 09/10/2024 gabapentin (NEURONTIN) 300 mg capsule, Take 300 mg by mouth twice daily., Disp: , Rfl: , 09/10/2024 CALCIUM CARBONATE/VITAMIN D3 (CALCIUM + D ORAL), Take one(1) tablet two(2) times daily., Disp: , Rfl: , 09/10/2024 CURRENT ALLERGIES: ALLERGIES No Known Allergies COMPLETE [...] other than HPI. History of Bleeding Issues: No OBJECTIVE PHYSICAL EXAM: No data found. There is no height or weight on file to calculate BMI. GENERAL: Alert and oriented x 3, no distress, cooperative SKIN: Skin color, turgor normal. No rashes or lesions. EARS: External ears normal. NECK: No jugulovenous distention, no carotid bruits, supple. CHEST: No deformities. LUNGS: Lungs clear to auscultation. No rales or wheezing. CARDIAC: Rhythm irregular ABDOMEN: Abdomen soft, non-tender. EXTREMITIES: Extremities normal. No deformities, edema, clubbing or skin discoloration. NEURO: Gait normal. Reflexes normal and symmetric. Sensation grossly intact. PULSES: 2+ radial 1+ dorsalis pedis 1+ posterial tibial DATA: Diagnostic tests reviewed for today's visit: Most recent EKG Most recent labs POC INR: CBC: Recent Labs 08/30/24 0927 WBC 5.93 RBC 4.67 HB 15.1 HCT 43.8 PLT 137* MCV 93.8 MCH 32.3 MPV 8.9* Coags: No results for input(s): PT , INR , APTT in the last 720 hours. BMP: Recent Labs 08/30/24 0927 NA 140 K 4.3 CHLOR 106 CO2 24 BUN 12 CREAT 1.24* GLUC 110* Assessment: Mr. Link Rosen is a 69 year old male with h/o obesity, polycystic kidney disease, s/p kidney transplant, hypertensive kidney disease, dilated aorta (more content not included)... Normal [facility] NURSING PROGon 09-10-2024 NURSING PROG HNO ID: [id number] Author: JENNIFER MC, RN Service: Nursing Author Type: Registered Nurse Type: Nursing Progress Note Filed: 09/10/2024 12:34 Note Text: Nursing Progress Note Topic of Note: post procedure PATIENT NAME: Link Rosen Patient Location: [facility]/ [facility] Room: [facility] ([facility] 13) 1139 s/p successful cardioversion. Shocked x1 @ 250J and X1 @ 360J with sternal compression. Tele-SR. Pt awake A+Ox3. Neuro checks WNL. 1145 Pt provided lunch, tolerating well. 1200 Discharge instructions reviewed with pt, all questions answered, states understanding. 1215 pt ambulated in halls with steady gait. HL and tele removed. 1234 Pt discharged home in stable condition via transport in wheelchair with belongings. This note was completed by: Jennifer Mc Normal [facility] OPERATIVE NOon 09-10-2024 OPERATIVE NO HNO ID: [id number] Author: WEI PABLO MD Service: Electrophysiology Author Type: Physician Type: Operative Report Filed: 09/10/2024 11:56 Note Text: PROCEDURE NOTE: CARDIOVERSION The risks, benefits, alternatives, and personnel discussed with patient or product support representative who consents to the procedure. UNIVERSAL PROTOCOL / SAFETY CHECKLIST: Procedure to be performed: DC cardioversion. Sign in Communication: Completed. Time Out: Team Confirms the Correct Patient, Correct Procedure, Correct Site and Site Marking, Correct Position (if applicable). Time: 11:20am. Affirmation of Time Out: YES. Sign Out Discussion: Completed. Pre-operative diagnosis: Persistent AF Post-operative diagnosis: successful DC cardioversion for AF Procedure type: DC cardioversion Staff: Wei Pablo MD Brief History: 69M with NICM, obesity, persistent AF , afib ablation in 02/2024, now with recurrence./Presents for DC cardioversion The patient was placed on a monitor and supplemental oxygen. Adjunct airway equipment, suction and other necessary items were prepared. The patient was sedated with propofol. Following sedation patient was cardioverted at 250J followed by 360 with conversion to normal sinus rhythm. A post conversion EKG was completed. The patient tolerated the procedure well. Assessment: successful Dc cardioversion for afib Plan/Recommendations: continue meds Medication changes: none Appointment: as arranged Wei Pablo MD September 10, 2024 11:54 AM Normal [facility] CBC W Auto Differential pane l (Bld)on 08-30-2024 Basophils (Bld) [#/Vol] 0.04 10*3/uL Normal <0.11 [facility] Comment on above: Order Comment: Speci men Type: BLOOD SPECIMEN Ordering Facility: [facility] Address: [address] [place] [address] Performed By: #### 2 4323-8, , 2776-09 #### [facility] CLIA [id number] [address] [place] [address]45 Basophils/100 WBC (Bld) 0.7 % Normal [facility] Comment on above: Order Comment: Speci men Type: BLOOD SPECIMEN Ordering Facility: [facility] Address: [address] [place] [address] Performed By: #### 2 4323-8, , 2776-09 #### [facility] CLIA [id number] [address] [place] [address] 35043 Differential cell count method Nom (Bld) Auto Normal [facility] Comment on above: Order Comment: Speci men Type: BLOOD SPECIMEN Ordering Facility: [facility] Address: [address] [place] [address] Performed By: #### 2 4323-8, , 2776-09 #### [facility] CLIA [id number] [address] [place] [address] 13264 Eosinophils (Bld) [#/Vol] 0.19 10*3/uL Normal <0.46 [facility] Comment on above: Order Comment: Speci men Type: BLOOD SPECIMEN Ordering Facility: [facility] Address: [address] [place] [address] Performed By: #### 2 4323-8, , 2776-09 #### [facility] CLIA [id number] [address] [place] [address] 77640 Eosinophils/100 WBC (Bld) 3.2 % Normal [facility] Comment on above: Order Comment: Speci men Type: BLOOD SPECIMEN Ordering Facility: [facility] Address: [address] [place], [place] [address] Performed By: #### 2 4323-8, 93913-2, 2776-09 #### [facility] CLIA [id number] [address] [place] [address] 42988 Erythrocyte distribution width (RBC) [Ratio] 12.7 % Normal 11.5-15.0 [facility] Comment on above: Order Comment: Speci men Type: BLOOD SPECIMEN Ordering Facility: [facility] Address: [address] [place] [address] Performed By: #### 2 4323-8, , 2776-09 #### [facility] CLIA [id number] [address] [place] [address] 14532 Hematocrit (Bld) [Volume fraction] 43.8 % Normal 39.0-51.0 [facility] Comment on above: Order Comment: Speci men Type: BLOOD SPECIMEN Ordering Facility: [facility] Address: [address] [place] [address] Performed By: #### 2 4323-8, , 2776-09 #### [facility] CLIA [id number] [address] [place] [address]505 Hemoglobin (Bld) [Mass/Vol] 15.1 g/dL Normal 13.0-17.0 [facility] Comment on above: Order Comment: Speci men Type: BLOOD SPECIMEN Ordering Facility: [facility] Address: [address] [place] [address] Performed By: #### 2 4323-8, , 2776-09 #### [facility] CLIA [id number] [address] [place] [address] 34461 Immature granulocytes (Bld) [#/Vol] 10*3/uL Normal <0.10 [facility] Comment on above: Order Comment: Speci men Type: BLOOD SPECIMEN Ordering Facility: [facility] Address: [address] [place] [address] Performed By: #### 2 4323-8, , 2776-09 #### [facility] CLIA [id number] [address] [place] [address] 56093 Immature granulocytes/100 WBC (Bld) 0.2 % Normal [facility] Comment on above: Order Comment: Speci men Type: BLOOD SPECIMEN Ordering Facility: [facility] Address: [address] [place], [place] [address] Performed By: #### 2 432-8, , 2776-09 #### [facility] CLIA [id number] [address] [place] [address] 63256 Lymphocytes (Bld) [#/Vol] 2.44 10*3/uL Normal 1.00-4.00 [facility] Comment on above: Order Comment: Speci men Type: BLOOD SPECIMEN Ordering Facility: [facility] Address: [address] [place] [address] 15925 Performed By: #### 2 8, , 2776-09 #### [facility] CLIA [id number] [address] [place] [address] 32892 Lymphocytes/100 WBC (Bld) 41.1 % Normal [facility] Comment on above: Order Comment: Speci men Type: BLOOD SPECIMEN Ordering Facility: [facility] Address: [address] [place] [address] 34913 Performed By: #### 2 4323-8, , 2776-09 #### [facility] CLIA [id number] [address] [place] [address] 11894 MCH (RBC) [Entitic mass] 32.3 pg Normal 26.0-34.0 [facility] Comment on above: Order Comment: Speci men Type: BLOOD SPECIMEN Ordering Facility: [facility] Address: [address] [place] [address] Performed By: #### 2 4323-8, , 2776-09 #### [facility] CLIA [id number] [address] [place] [address] 80681 MCHC (RBC) [Mass/Vol] 34.5 g/dL Normal 30.5-36.0 [facility] Comment on above: Order Comment: Speci men Type: BLOOD SPECIMEN Ordering Facility: [facility] Address: [address] [place] [address] Performed By: #### 2 432-8, , 2776-09 #### [facility] CLIA [id number] [address] [place] [address] 82467 MCV (RBC) [Entitic vol] 93.8 fL Normal 80.0-100.0 [facility] Comment on above: Order Comment: Speci men Type: BLOOD SPECIMEN Ordering Facility: [facility] Address: [address] [place] [address] Performed By: #### 2 432-8, , 2776-09 #### [facility] CLIA [id number] [address] [place] [address] 69630 Monocytes (Bld) [#/Vol] 0.40 10*3/uL Normal <0.87 [facility] Comment on above: Order Comment: Speci men Type: BLOOD SPECIMEN Ordering Facility: [facility] Address: [address] [place] [address] 31703 Performed By: #### 2 432-8, , 2776-09 #### [facility] CLIA [id number] [address] [place] [address] 62763 Monocytes/100 WBC (Bld) 6.7 % Normal [facility] Comment on above: Order Comment: Speci men Type: BLOOD SPECIMEN Ordering Facility: [facility] Address: [address] [place] [address] Performed By: #### 2 4323-8, , 2776-09 #### [facility] CLIA [id number] [address] [place] [address] Neutrophils (Bld) [#/Vol] 2.85 10*3/uL Normal 1.45-7.50 [facility] Comment on above: Order Comment: Speci men Type: BLOOD SPECIMEN Ordering Facility: [facility] Address: [address] [place] [address] Performed By: #### 2 4323-8, , 2776-09 #### [facility] CLIA [id number] [address] [place] [address] 25789 Neutrophils/100 WBC (Bld) 48.1 % Normal [facility] Comment on above: Order Comment: Speci men Type: BLOOD SPECIMEN Ordering Facility: [facility] Address: [address] [place] [address] Performed By: #### 2 4323-8, , 2776-09 #### [facility] CLIA [id number] [address] [place] [address] 82106 Nucleated RBC (Bld) [#/Vol] 10*3/uL Normal <0.01 [facility] Comment on above: Order Comment: Speci men Type: BLOOD SPECIMEN Ordering Facility: [facility] Address: [address] [place] [address] Performed By: #### 2 4323-8, , 2776-09 #### [facility] CLIA [id number] [address] [place] [address] 29223 Nucleated RBC/100 WBC (Bld) [Ratio] 0.0 /100 WBC Normal [facility] Comment on above: Order Comment: Speci men Type: BLOOD SPECIMEN Ordering Facility: [facility] Address: [address] [place] [address] Performed By: #### 2 4323-8, , 2776-09 #### [facility] CLIA [id number] [address] [place] [address] 67958 Platelet mean volume (Bld) [Entitic vol] 8.9 fL Low 9.0-12.7 [facility] Comment on above: Order Comment: Speci men Type: BLOOD SPECIMEN Ordering Facility: [facility] Address: [address] [place] [address] 15787 Performed By: #### 2 4323-8, , 2776-09 #### [facility] CLIA [id number] [address] [place] [address] 23198 Platelets (Bld) [#/Vol] 137 10*3/uL Low 150-400 [facility] Comment on above: Order Comment: Speci men Type: BLOOD SPECIMEN Ordering Facility: [facility] Address: [address] [place] [address] 17392 Performed By: #### 2 4323-8, , 2776-09 #### [facility] CLIA [id number] [address] [place] [address] 28909 RBC (Bld) [#/Vol] 4.67 10*6/uL Normal 4.20-6.00 [facility] Comment on above: Order Comment: Speci men Type: BLOOD SPECIMEN Ordering Facility: [facility] Address: [address] [place] [address] 04333 Performed By: #### 2 4323-8, , 2776-09 #### [facility] CLIA [id number] [address] [place] [address] 69869 WBC (Bld) [#/Vol] 5.93 10*3/uL Normal 3.70-11.00 [facility] Comment on above: Order Comment: Speci men Type: BLOOD SPECIMEN Ordering Facility: [facility] Address: [address] [place] [address] 23035 Performed By: #### 2 4323-8, , 2776-09 #### [facility] CLIA [id number] [address] [place] [address] 31075 Abel 08-30-2024 SEANN Telephone (FVPRAD) CINTHYANOBLEANGIELINK ([id number]) 1955 M Date Time Provider Department 08/30/24 MELISA BRICEÑO During your visit today, we recorded the following information about you: Melisa Briceño APRN.SEAN 08/30/2024 12:03 PM Signed Please l patient. Magnesium is quite low. Recommend he take magnesium supplement-OTC 400 mg BID. Thank you! Melisa Briceño APRN.Layla Lehman, LISE 08/30/2024 4:38 PM Signed Called and relayed below message. Patient does take magnesium daily, says he cannot tolerate BID due to diarrhea. He says he runs low and Dr. Oneil told him he will always have this problem. Allergies As of Date: 08/30/2024 (No Known Allergies) Date Reviewed: 07/27/2024 Reviewed by: Amanda Ramirez MA - Fully Assessed Reason for Visit: Results [95] Prescriptions as of 08/30/2024 - hydrOXYzine HCl (ATARAX) 25 mg tablet Take 25 mg by mouth once daily as needed. - sulfamethoxazole-trime thoprim (BACTRIM) 400-80 mg per tablet Take 1 tablet by mouth every Friday, Friday, and Friday. - predniSONE (DELTASONE) 5 mg tablet take 1 tablet by mouth once daily - metoprolol tartrate, short acting, (LOPRESSOR) 50 mg tablet Take 1 tablet by mouth two times a day. - rivaroxaban (XARELTO) 20 mg tablet Take 1 tablet by mouth daily with dinner. - mycophenolate mofetil (CELLCEPT) 250 mg capsule Take 2 capsules by mouth two times a day. - tacrolimus IR (PROGRAF) 1 mg capsule Take(1) capsule by mouth twice daily - gabapentin (NEURONTIN) 300 mg capsule Take 300 mg by mouth twice daily. - CALCIUM CARBONATE/VITAMIN D3 (CALCIUM + D ORAL) Take one(1) tablet two(2) times daily. Meds Comments as of 02/22/2010: Patient states he doesn't always take Pepcid. 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] 05/08/2009 S/p cadaver renal transplant [Z94.0] Umbilical hernia [K42.9] PAF (paroxysmal atrial fibrillation) (HCC) [I48*09/30/2023 Cardiomyopathy (HCC) [I42.9] 11/10/2023 Aneurysm of ascending aorta without rupture (HC*11/10/2023 S/P ablation of atrial fibrillation [Z98.890, Z*03/06/2024 On continuous oral anticoagulation [Z79.01] 07/27/2024 Encounter Status:Closed by LAYLA JARQUIN on 08/30/24 Normal [facility] Comprehensive metabolic 2000 panelon 08-30-2024 Albumin [Mass/Vol] 4.1 g/dL Normal 3.9-4.9 [facility] Comment on above: Order Comment: Speci men Type: BLOOD SPECIMEN Ordering Facility: [facility] Address: [address] [place] [address] 76025 Performed By: #### 2 4323-8, , 1 #### [facility] CLIA [id number] [address] [place] [address] 41570 ALP [Catalytic activity/Vol] 58 U/L Normal 38-113 [facility] Comment on above: Order Comment: Speci men Type: BLOOD SPECIMEN Ordering Facility: [facility] Address: [address] [place] [address] 03815 Performed By: #### 2 4323-8, 91822-5, 2776-1 #### [facility] CLIA [id number] [address] [place] [address] ALT [Catalytic activity/Vol] 9 U/L Low 10-54 [facility] Comment on above: Order Comment: Speci men Type: BLOOD SPECIMEN Ordering Facility: [facility] Address: [address] [place] [address] Performed By: #### 2 4323-8, , 2776-09 #### [facility] CLIA [id number] [address] [place] [address] 83308 Anion gap [Moles/Vol] 10 mmol/L Normal 8-15 [facility] Comment on above: Order Comment: Speci men Type: BLOOD SPECIMEN Ordering Facility: [facility] Address: [address] [place] [address] 17437 Performed By: #### 2 4323-8, , 2776-09 #### [facility] CLIA [id number] [address] [place] [address] 31906 AST [Catalytic activity/Vol] 12 U/L Low 14-40 [facility] Comment on above: Order Comment: Speci men Type: BLOOD SPECIMEN Ordering Facility: [facility] Address: [address] [place] [address] 79085 Performed By: #### 2 4323-8, , 2776-09 #### [facility] CLIA [id number] [address] [place] [address] 32873 Bilirubin [Mass/Vol] 1.5 mg/dL High 0.2-1.3 [facility] Comment on above: Order Comment: Speci men Type: BLOOD SPECIMEN Ordering Facility: [facility] Address: [address] [place] [address] Performed By: #### 2 4323-8, , 2776-09 #### [facility] CLIA [id number] [address] [place] [address] 15156 Calcium [Mass/Vol] 9.6 mg/dL Normal 8.5-10.2 [facility] Comment on above: Order Comment: Speci men Type: BLOOD SPECIMEN Ordering Facility: [facility] Address: [address] [place] [address] 74456 Performed By: #### 2 4323-8, 10241-5, 2776-09 #### [facility] CLIA [id number] [address] [place] [address] Chloride [Moles/Vol] 106 mmol/L Normal 98-107 [facility] Comment on above: Order Comment: Speci men Type: BLOOD SPECIMEN Ordering Facility: [facility] Address: [address] [place] [address] Performed By: #### 2 4323-8, , 2776-09 #### [facility] CLIA [id number] [address] [place] [address] 25005 CO2 [Moles/Vol] 24 mmol/L Normal 22-30 [facility] Comment on above: Order Comment: Speci men Type: BLOOD SPECIMEN Ordering Facility: [facility] Address: [address] [place] [address] Performed By: #### 2 4323-8, , 2776-09 #### [facility] CLIA [id number] [address] [place] [address] 51124 Creatinine [Mass/Vol] 1.24 mg/dL High 0.73-1.22 [facility] Comment on above: Order Comment: Speci men Type: BLOOD SPECIMEN Ordering Facility: [facility] Address: [address] [place] [address] Performed By: #### 2 4323-8, , 2776-09 #### [facility] CLIA [id number] [address] [place] [address] 29994 Creatinine and Glomerular filtration rate.predicted panel (S/P/Bld) 64 mL/min/1.73m??? Normal >=60 [facility] Comment on above: Order Comment: Speci men Type: BLOOD SPECIMEN Ordering Facility: [facility] Address: [address] [place] [address] Result Comment: Katalina mated Glomerular Filtration Rate [...] Performed By: #### 2 4323-8, , 2776-09 #### [facility] CLIA [id number] [address] [place] [address] Glucose [Mass/Vol] 110 mg/dL High 74-99 [facility] Comment on above: Order Comment: Anitra echeverria Type: BLOOD SPECIMEN Ordering Facility: [facility] Address: [address] [place] [address] 90662 Result Comment: The [place] [employer] (ADA) provides guidance for cutoff [...] Standards of Medical Care in Diabetes 2016, [place] [employer]. Diabetes Care. 2016.39(Suppl 1). Performed By: #### 2 4323-8, , 2776-09 #### [facility] CLIA [id number] [address] [place] [address] 42598 Potassium [Moles/Vol] 4.3 mmol/L Normal 3.7-5.1 [facility] Comment on above: Order Comment: Anitra echeverria Type: BLOOD SPECIMEN Ordering Facility: [facility] Address: [address] [place] [address] Performed By: #### 2 4323-8, , 2776-09 #### [facility] CLIA [id number] [address] [place] [address] Protein [Mass/Vol] 6.0 g/dL Low 6.3-8.0 [facility] Comment on above: Order Comment: Speci men Type: BLOOD SPECIMEN Ordering Facility: [facility] Address: [address] [place] [address] 20778 Performed By: #### 2 4323-8, , 2776-09 #### [facility] CLIA [id number] [address] [place] [address] Sodium [Moles/Vol] 140 mmol/L Normal 136-144 [facility] Comment on above: Order Comment: Speci men Type: BLOOD SPECIMEN Ordering Facility: [facility] Address: [address] [place] [address] 77960 Performed By: #### 2 4323-8, , 2776-09 #### [facility] CLIA [id number] [address] [place] [address] 82394 Urea nitrogen [Mass/Vol] 12 mg/dL Normal 9-24 [facility] Comment on above: Order Comment: Speci men Type: BLOOD SPECIMEN Ordering Facility: [facility] Address: [address] [place] [address] 75833 Performed By: #### 2 4323-8, , 2776-09 #### [facility] CLIA [id number] [address] [place] [address] 90822 Magnesium SerPl-mCncon 08-30 Magnesium [Mass/Vol] 1.5 mg/dL Low 1.7-2.3 [facility] Comment on above: Order Comment: Speci men Type: BLOOD SPECIMEN Ordering Facility: [facility] Address: [address] [place] [address] 44913 Performed By: #### 2 4323-8, , 2776-09 #### [facility] CLIA [id number] [address] [place] [address] 16348 Phosphate SerPl-mCncon 08-30 Phosphate [Mass/Vol] 2.7 mg/dL Normal 2.7-4.8 [facility] Comment on above: Order Comment: Anitra echeverria Type: BLOOD SPECIMEN Ordering Facility: [facility] Address: [address] [place] [address] [place] [address] Performed By: #### 2 4323-8, 54534-9, 2777-1 #### [facility] CLIA [id number] [address] [place] [id number] Tacrolimus Bld-[facility] 2023 Tacrolimus (Bld) [Mass/Vol] 6.9 ng/mL Normal 5.0-20.0 [facility] Comment on above: Order Comment: Anitra echeverria Type: BLOOD SPECIMENOrdering Facility: [facility] Address: [address] [place], [place] [address] [address] Result Comment: Olivia vidualized target levels for [...] Alinity i. Performed By: #### 1 1253-2 ####[facility] [id number] [place] [id number] [place] CNPAleyda 08-27-2024 CNPN Telephone (CAEPAV) LINK ROSEN ([id number]) 1955 Hal Date Time Provider Department 08/27/24 WEI PABLO CAEPAV During your visit today, we recorded the following information about you: Karlene Nguyen 08/27/2024 8:38 AM Signed ----- Message from MINDY Coelho sent at 08/27/2024 8:12 AM EST ----- 09/07 ----- Message ----- From: Williamestelapaddy Karlene Mondragon Sent: 08/27/2024 7:04 AM EST To: MINDY May Can you please schedule his dcc w Dr Pablo next available ----- Message ----- From: Melisa Briceño APRN.CNP Sent: 08/26/2024 4:12 PM EST To: Karlene Mondragon I ordered labs now. I had messaged Dr. Pablo regarding whether or not he wanted to proceed, which he stated he did. So just need to schedule with Dr. Pablo, please. [place] ----- Message ----- From: Lore Monrdagon Karlene Sent: 08/26/2024 3:51 PM EST To: Melisa Briceño APRN.CNP There was a CC chart message from Dr Scott on this dmitry, And I can't find the message that I thought was from you regarding his labs? Maybe Can you please help Karlene Nguyen 08/27/2024 8:39 AM Signed Called and left message for patient to schedule his dcc with Dr Pablo for September 07. Gave patient my direct number. Allergies As of Date: 08/27/2024 (No Known Allergies) Date Reviewed: 07/27/2024 Reviewed by: Amanda Ramirez MA - Fully Assessed Prescriptions as of 08/27/2024 - hydrOXYzine HCl (ATARAX) 25 mg tablet Take 25 mg by mouth once daily as needed. - sulfamethoxazole-trime thoprim (BACTRIM) 400-80 mg per tablet Take 1 tablet by mouth every Friday, Friday, and Friday. - predniSONE (DELTASONE) 5 mg tablet take 1 tablet by mouth once daily - metoprolol tartrate, short acting, (LOPRESSOR) 50 mg tablet Take 1 tablet by mouth two times a day. - rivaroxaban (XARELTO) 20 mg tablet Take 1 tablet by mouth daily with dinner. - mycophenolate mofetil (CELLCEPT) 250 mg capsule Take 2 capsules by mouth two times a day. - tacrolimus IR (PROGRAF) 1 mg capsule Take(1) capsule by mouth twice daily - gabapentin (NEURONTIN) 300 mg capsule Take 300 mg by mouth twice daily. - CALCIUM CARBONATE/VITAMIN D3 (CALCIUM + D ORAL) Take one(1) tablet two(2) times daily. Meds Comments as of 02/22/2010: Patient states he doesn't always take Pepcid. 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.89] 05/08/2009 S/p cadaver renal transplant [Z94.0] Umbilical hernia [K42.9] PAF (paroxysmal atrial fibrillation) (HCC) [I48*09/30/2023 Cardiomyopathy (HCC) [I42.9] 11/10/2023 Aneurysm of ascending aorta without rupture (HC*11/10/2023 S/P ablation of atrial fibrillation [Z98.890, Z*03/06/2024 On continuous oral anticoagulation [Z79.01] 07/27/2024 Encounter Status:Closed [facility] KARLENE [facility]GU[facility]EN [facility] [facility] ([id number]) 1955 M Date Time Provider Department 08/27/24 WEI PABLO CAEPAV During your visit today, we recorded the following information about you: Karlene Nguyen 08/27/2024 8:41 AM Signed Waiting for patient to call us back to schedule his cardioversion with Dr Pablo. Allergies As of Date: 08/27/2024 (No Known Allergies) Date Reviewed: 07/27/2024 Reviewed by: Amanda Ramirez MA - Fully Assessed Prescriptions as of 08/27/2024 - hydrOXYzine HCl (ATARAX) 25 mg tablet Take 25 mg by mouth once daily as needed. - sulfamethoxazole-trime thoprim (BACTRIM) 400-80 mg per tablet Take 1 tablet by mouth every Friday, Friday, and Friday. - predniSONE (DELTASONE) 5 mg tablet take 1 tablet by mouth once daily - metoprolol tartrate, short acting, (LOPRESSOR) 50 mg tablet Take 1 tablet by mouth two times a day. - rivaroxaban (XARELTO) 20 mg tablet Take 1 tablet by mouth daily with dinner. - mycophenolate mofetil (CELLCEPT) 250 mg capsule Take 2 capsules by mouth two times a day. - tacrolimus IR (PROGRAF) 1 mg capsule Take(1) capsule by mouth twice daily - gabapentin (NEURONTIN) 300 mg capsule Take 300 mg by mouth twice daily. - CALCIUM CARBONATE/VITAMIN D3 (CALCIUM + D ORAL) Take one(1) tablet two(2) times daily. Meds Comments as of 02/22/2010: Patient states he doesn't always take Pepcid. 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.89] 05/08/2009 S/p cadaver renal transplant [Z94.0] Umbilical hernia [K42.9] PAF (paroxysmal atrial fibrillation) (HCC) [I48*09/30/2023 Cardiomyopathy (HCC) [I42.9] 11/10/2023 Aneurysm of ascending aorta without rupture (HC*11/10/2023 S/P ablation of atrial fibrillation [Z98.890, Z*03/06/2024 On continuous oral anticoagulation [Z79.01] 07/27/2024 Encounter Status:Closed by KARLENE NGUYEN on 08/27/24 [facility] CNPN Telephone (CAEPAV) LINK ROSEN ([id number]) 1955 Date Time Provider Department 08/27/24 WEI PABLO CAEPAV During your visit today, we recorded the following information about you: Karlene Nguyen 08/27/2024 11:54 AM Signed ----- Message from MINDY Coelho sent at 08/27/2024 8:12 AM EST ----- 09/07 ----- Message ----- From: Karlene Nguyen Sent: 08/27/2024 7:04 AM EST To: MINDY May Can you please schedule his dcc w Dr Pablo next available ----- Message ----- From: Melisa Briecño APRN.[employer] SALES REPRESENTATIVE Sent: 08/26/2024 4:12 PM EST To: Karlene Mondragon I ordered labs now. I had messaged Dr. Pablo regarding whether or not he wanted to proceed, which he stated he did. So just need to schedule with Dr. Pablo, please. [place] ----- Message ----- From: Karlene Nguyen Sent: 08/26/2024 3:51 PM EST To: Melisa Briceño APRN.[employer]ESS [employer] SALES REPRESENTATIVE There was a CC chart message from Dr Scott on this dmitry, And I can't find the message that I thought was from you regarding his labs? Maybe Can you please help Karlene Nguyen 08/27/2024 11:55 AM Signed Called and spoke to patient and scheduled his cardioversion at [facility] with Dr Pablo for September 10. Patient notified instructions and sent mychart. Follow up scheduled. Allergies As of Date: 08/27/2024 (No Known Allergies) Date Reviewed: 07/27/2024 Reviewed by: Amanda Ramirez MA - Fully Assessed Prescriptions as of 08/27/2024 - hydrOXYzine HCl (ATARAX) 25 mg tablet Take 25 mg by mouth once daily as needed. - sulfamethoxazole-trime thoprim (BACTRIM) 400-80 mg per tablet Take 1 tablet by mouth every Friday, Friday, and Friday. - predniSONE (DELTASONE) 5 mg tablet take 1 tablet by mouth once daily - metoprolol tartrate, short acting, (LOPRESSOR) 50 mg tablet Take 1 tablet by mouth two times a day. - rivaroxaban (XARELTO) 20 mg tablet Take 1 tablet by mouth daily with dinner. - mycophenolate mofetil (CELLCEPT) 250 mg capsule Take 2 capsules by mouth two times a day. - tacrolimus IR (PROGRAF) 1 mg capsule Take(1) capsule by mouth twice daily - gabapentin (NEURONTIN) 300 mg capsule Take 300 mg by mouth twice daily. - CALCIUM CARBONATE/VITAMIN D3 (CALCIUM + D ORAL) Take one(1) tablet two(2) times daily. Meds Comments as of 02/22/2010: Patient states he doesn't always take Pepcid. 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.89] 05/08/2009 S/p cadaver renal transplant [Z94.0] Umbilical hernia [K42.9] PAF (paroxysmal atrial fibrillation) (HCC) [I48*09/30/2023 Cardiomyopathy (HCC) [I42.9] 11/10/2023 Aneurysm of ascending aorta without rupture (HC*11/10/2023 S/P ablation of atrial fibrillation [Z98.890, Z*03/06/2024 On continuous oral anticoagulation [Z79.01] 07/27/2024 Encounter Status:Closed by KARLENE NGUYEN on 08/27/24 [facility] SEANN Telephone (CAEPAV) L[place] ROSEN Jaxson ([id number]) 1955 M Date Time Provider Department 08/25/24 WEI PABLO CAEPAV During your visit today, we recorded the following information about you: Karlene Nguyen 08/25/2024 7:12 AM Signed Called and scheduled with ep physician. Melisa Briceño APRN.[employer] SAL[employer] REPRESENTATIVE 08/26/2024 3:54 PM Signed As noted previously, it was requested that patient have DCCV completed which Dr. Pablo agreed with. Can we please book this with him? Thank you! Melisa Briceño APRN.Melisa Nichols APRN.[facility] 08/26/2024 4:11 PM Signed Addended by: MELISA BRICEÑO on: 08/26/2024 04:11 PM Modules accepted: Orders Allergies As of Date: 08/25/2024 (No Known Allergies) Date Reviewed: 07/27/2024 Reviewed by: Amanda Ramirez MA - Fully Assessed Primary Visit Diagnosis:Persistent atrial fibrillation (HCC) [I48.19] Order(s):COMPLETE BLOOD COUNT [SQCBC] Order #: [id number] FUTURE BASIC METABOLIC PANEL [SQBMP] Order #: [id number] FUTURE MAGNESIUM [SQMG1] Order #: [id number] FUTURE Prescriptions as of 08/26/2024 - hydrOXYzine HCl (ATARAX) 25 mg tablet Take 25 mg by mouth once daily as needed. - sulfamethoxazole-trime thoprim (BACTRIM) 400-80 mg per tablet Take 1 tablet by mouth every Friday, Friday, and Friday. - predniSONE (DELTASONE) 5 mg tablet take 1 tablet by mouth once daily - metoprolol tartrate, short acting, (LOPRESSOR) 50 mg tablet Take 1 tablet by mouth two times a day. - rivaroxaban (XARELTO) 20 mg tablet Take 1 tablet by mouth daily with dinner. - mycophenolate mofetil (CELLCEPT) 250 mg capsule Take 2 capsules by mouth two times a day. - tacrolimus IR (PROGRAF) 1 mg capsule Take(1) capsule by mouth twice daily - gabapentin (NEURONTIN) 300 mg capsule Take 300 mg by mouth twice daily. - CALCIUM CARBONATE/VITAMIN D3 (CALCIUM + D ORAL) Take one(1) tablet two(2) times daily. Meds Comments as of 02/22/2010: Patient states he doesn't always take Pepcid. 02/22/10 Parisa Medel [facility] Problem List As Of Date 08/25/2024 Noted Resolved Kidney Replaced by Transplant [Z94.0] 05/08/2009 Need for Prophylactic Immunotherapy [Z29.89] 05/08/2009 Hypertensive heart and kidney disease with end-*05/08/2009 Polycystic Kidney Disease [Q61.3] 05/08/2009 Ureteral Fistula [N28.89] 05/08/2009 S/p cadaver renal transplant [Z94.0] Umbilical hernia [K42.9] PAF (paroxysmal atrial fibrillation) (HCC) [I48*09/30/2023 Cardiomyopathy (HCC) [I42.9] 11/10/2023 Aneurysm of ascending aorta without rupture (HC*11/10/2023 S/P ablation of atrial fibrillation [Z98.890, Z*03/06/2024 On continuous oral anticoagulation [Z79.01] 07/27/2024 Encounter Status:Closed by KARLENE NGUYEN on 08/25/24 [facility] CNOVon 07-27-2024 CNOV Office Visit (LINDA ) LINK ROSEN ([id number]) 1955 M Date Time Provider Department 07/27/24 1:30 PM EMANUEL SCOTT During your visit today, we recorded the following information about you: Pulse Blood pressure Weight 78/minute 126/74 171.6 kg Emanuel Scott MD 07/27/2024 1:48 PM Signed [facility] [place] CARDIOLOGY OUTPATIENT VISIT DATE Jul 27, 2024 OUTPATIENT VISIT TYPE Established PRIMARY CARE PHYSICIAN: Kathleen Sams [address] [place] [address] REFERRING PHYSICIAN: Usman Lowry [address] [facility] [address] C/C: Follow-up for atrial fibrillation Last and initial visit with il March 2024 HISTORY OF PRESENT ILLNESS: Mr. Rosen is a 69 year old male, seen in clinic today for follow-up for atrial fibrillation CV history reviewed, summarized and updated: Initial visit with il in Sep 2023-noted to be in Afib of unknown duration, first diagnosis. Status post DCCV November 05, 2023. Recurrence of A-Fib post DCCV Echocardiogram October 31, 2023-LVEF mildly decreased at 45%, RV normal size and function, dilated aorta at 4.9 cm. Was unable to complete stress SPECT due to A-Fib with RVR, had rest images only. S/p PVI/ablation with Dr. Pablo February 2024, with recurrence of atrial fibrillation post ablation Since prior visit with il, Was evaluated with EP EMILY Briceño. Was noted to be in persistent atrial fibrillation, after discussion with customer assistance representative, was started on amiodarone. Plan was for repeat cardioversion while on amiodarone. However, this did not happen. Patient is unclear as to why this did not happen, and I do not see any follow-up notes. It appears that his TSH was elevated while on amiodarone. Subsequently amiodarone was discontinued, it was prescribed for 90 days. Did not pursue stress test due to difficulty in hand positioning Denies any bleeding complications. He has significant back pain that limits his ability to lay flat, denies any symptoms from atrial fibrillation at this time. Otherwise he denies any recurrent chest pain, shortness of breath, leg swelling and symptoms consistent with orthopnea and/or PND. 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 Never smoker. REVIEW OF SYSTEMS: 10 systems reviewed and are negative with the exception of pertinent positives described in HPI PHYSICAL EXAMINATION: BP 126/74 Pulse 78 Wt (!) 171.6 kg (378 lb 5 oz) BMI 37.70 kg/m? General: No acute distress, appears comfortable [...] Normal mood and affect CARDIOVASCULAR MEDICINE TESTING: Reviewed recent EKG from June 2024, atrial fibrillation, controlled ventricular rate PAST MEDICAL HISTORY Diagnosis Date Coronary atherosclerosis of unspecified type of vessel, [place] or graft Mild 3-vessel Coronary artery disease [...] Never Smokeless tobacco: Never Vaping Use Vaping status: Never Used Substance Use Topics Alcohol use: No Comment: no alcohol > 2 yrs, no previous hx of abuse Drug use: No FAMILY HISTORY Problem Relation Age of Onset other (Polycystic Kidney [Other]) Mother other (Polycystic Kidney [Other]) Brother other (CVA [Other]) Father Emphysema Father ALLERGIES: ALLERGIES No Known Allergies CURRENT MEDICATIONS: hydrOXYzine HCl (ATARAX) 25 mg tablet Take 25 mg by mouth once daily as needed. sulfamethoxazole-trime thoprim (BACTRIM) 400-80 mg per tablet Take 1 tablet by mouth every Friday, Friday, and Friday. predniSONE (DELTASONE) 5 mg tablet take 1 tablet by mouth once daily metoprolol tartrate, short acting, (LOPRESSOR) 50 mg tablet Take 1 tablet by mouth two times a day. rivaroxaban (XARELTO) 20 mg tablet Take 1 tablet by mouth daily with dinner. mycophenolate mofetil (CELLCEPT) 250 mg capsule Take 2 capsules by mouth two times a day (more content not included)... Normal [facility] CNOVon 07-06-2024 CNOV Office Visit (RAQUEL ) LINK ROSEN ([id number]) 1955 M Date Time Provider Department 07/06/24 2:00 PM NHI ONEIL During your visit today, we recorded the following information about you: Pulse Blood pressure Weight Height 76/minute 117/75 171.7 kg 2.134 m Nhi Oneil MD 07/06/2024 5:08 PM Signed Department of [facility]ney [facility] [place] [facility] July 06, 2024 Portions of this note were copied forward from the last encounter in this office to ensure historical accuracy. Changes were made to accurately reflect updated history, physical exam, and medical decision making. 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 Had ventral hernia repair in February 2013. Baseline scr 1.2-1.4 Brother had renal tx here in Aug ankle fusion surgery on 10/22/19--required reoperation to remove hardware No interval complaints Had AF ablation- February 2024 Persistent low mag- says he takes supplement but 'doesn't make a difference' BP 117/75 (BP Site: Left Arm, BP Position: Sitting, BP Cuff Size: Large Adult) Pulse 76 Ht 213.4 cm (7') Wt (!) 171.7 kg (378 lb 8.5 oz) BMI 37.72 kg/m? Looks well CV irreg- rate controlled ABD soft, NT Lungs cTA Trace edema simone ankles Kidney function: Recent Labs 07/06/24 1329 UGLUC Negative UBILI Negative UKET Negative UHB Negative UPH 6.0 UPROT Negative eGFR-All Other Races Date Value 06/11/2016 59 . 03/02/2016 56 11/15/2013 >60 . 05/31/2013 58 . 11/23/2012 57 . Estimated Glomerular Filtration Rate (mL/min/1.73m?) Date Value 06/01/2024 55 04/01/2024 52 03/02/2024 49 12/02/2023 57 11/03/2023 62 Creatinine Date Value Ref Range Status 06/01/2024 1.41 (H) 0.73 - 1.22 mg/dL Final 04/01/2024 1.48 (H) 0.73 - 1.22 mg/dL Final 03/02/2024 1.55 (H) 0.73 - 1.22 mg/dL Final 12/02/2023 1.36 (H) 0.73 - 1.22 mg/dL Final 11/03/2023 1.28 (H) 0.73 - 1.22 mg/dL Final No results found for: CYSTATINC No results found for: EGFRAD BUN Date Value 06/01/2024 15 mg/dL 04/01/2024 14 mg/dL 03/02/2024 13 mg/dL 12/08/2017 14 09/13/2017 20 05/31/2017 18 No results found for: AMYLASE , LIPASE Protein/Creat Ratio (no units) Date Value 12/25/2015 0.0 12/28/2014 0.0 11/15/2013 0.0 05/31/2013 0.0 11/23/2012 0.0 06/01/2012 0.1 Immunosuppression: Tacrolimus/FK506 (ng/mL) Date Value 06/01/2024 6.6 04/01/2024 6.1 03/02/2024 6.0 12/02/2023 6.1 09/10/2021 10.1 06/05/2021 9.7 03/06/2021 13.6 12/02/2020 9.6 No results found for: EVERO Sirolimus/Rapamune (ng/mL) Date Value 10/05/2009 <1.0 No results found for: CSA Hematology: WBC (k/uL) Date Value 06/01/2024 6.65 04/01/2024 6.77 03/02/2024 6.19 03/10/2017 6.49 06/11/2016 5.09 11/15/2013 5.30 Hemoglobin (g/dL) Date Value 06/01/2024 15.2 04/01/2024 14.6 03/02/2024 15.1 03/10/2017 15.3 06/11/2016 14.5 11/15/2013 14.4 Hematocrit (%) Date Value 06/01/2024 43.5 04/01/2024 42.8 03/02/2024 44.2 03/10/2017 47.4 06/11/2016 42.1 11/15/2013 42.2 Platelet Count (k/uL) Date Value 06/01/2024 137 04/01/2024 149 03/02/2024 143 03/10/2017 126 06/11/2016 102 11/15/2013 118 Calcium (no units) Date Value 12/08/2017 9.6 09/13/2017 9.6 05/31/2017 9.5 Calcium, Total (mg/dL) Date Value 06/01/2024 9.7 04/01/2024 10.1 03/02/2024 10.6 Phosphorus Date Value 06/01/2024 2.7 mg/dL 03/02/2024 3.0 mg/dL 12/02/2023 2.8 mg/dL 12/08/2017 2.9 09/13/2017 2.9 05/31/2017 2.6 PTH, Intact Date Value 06/05/2015 81 12/07/2014 87 05/31/2013 80 pg/mL Bone and mineral metabolism: Vitamin D 25 Hydroxy Date Value 12/07/2014 47.7 01/24/2014 45 11/15/2013 46.2 ng/mL Calcium (no units) Date Value 12/08/2017 9.6 09/13/2017 9.6 05/31/2017 9.5 Calcium, Total (mg/dL) Date Value 06/01/2024 9.7 04/01/2024 10.1 03/02/2024 10.6 Magnesium Date Value 06/01/2024 1.6 mg/dL 03/02/2024 1.6 mg/dL 12/02/2023 1.6 mg/dL 09/03/2016 1.5 03/02/2016 1.6 12/16/2015 1.5 Phosphorus Date Value 06/01/2024 2.7 mg/dL 03/02/2024 3.0 mg/dL 12/02/2023 2.8 mg/dL 12/08/2017 2.9 09/13/2017 2.9 05/31/2017 2.6 PTH, Intact Date Value 06/05/2015 81 12/07/2014 87 05/31/2013 80 pg/mL Electrolytes and Acid-base: Sodium Date Value 06/01/2024 142 mmol/L 04/01/2024 139 mmol/L 03/02/2024 142 mmol/L 12/08/2017 139 09/13/2017 140 05/31/2017 141 Potassium Date Value 06/01/2024 4.3 mmol/L 04/01/2024 4.3 mmol/L 03/02/2024 4.3 mmol/L 12/08/2017 3.8 09/13/2017 4 05/31/2017 4.1 (more content not included)... Normal [facility] URINALYSIS, REFLEX MICROSCOP ICon 07-06-2024 Bilirubin Ql (U) Negative Negative [facility] Clarity (Unsp spec) Clear Clear [facility] Color (U) Yellow Yellow [facility] Glucose Test strip (U) [Mass/Vol] Negative Negative [facility] Hemoglobin Ql (U) Negative Negative [facility] Interpretation and review of laboratory results Normal [facility] Ketones Ql (U) Negative Negative [facility] Leukocyte esterase Test strip Ql (U) Negative Negative [facility] Nitrite Ql (U) Negative Negative [facility] pH (U) 6.0 [pH] NINF - 8.5 [facility] Protein (U) [Mass/Vol] Negative Negative Cl [facility] Specific gravity (U) [Rel density] 1.019 1.005 - 1.030 [facility] Urobilinogen Ql (U) 1.0 EU/dL 0.2-1.0 EU/dL [facility] Bilirubin Ql (U) Negative Normal Negative [facility] Comment on above: Order Comment: Speci men Type: BLOOD SPECIMEN Ordering Facility: [facility] Address: [address] [place] [address] Performed By: #### 2 4322-8, , 2776-09 #### [facility] CLIA [id number] [address] [place] [address] Clarity (Unsp spec) Clear Normal Clear [facility] Comment on above: Order Comment: Speci men Type: BLOOD SPECIMEN Ordering Facility: [facility] Address: [address] [place] [address] Performed By: #### 2 8, , 2776-09 #### [facility] CLIA [id number] [address] [place] [address] Color (U) Yellow Normal Yellow [facility] Comment on above: Order Comment: Speci men Type: BLOOD SPECIMEN Ordering Facility: [facility] Address: [address] [place] [address] Performed By: #### 2 8, , 2776-09 #### [facility] CLIA [id number] [address] [place] [address] Glucose Test strip (U) [Mass/Vol] Negative Normal Negative [facility] Comment on above: Order Comment: Speci men Type: BLOOD SPECIMEN Ordering Facility: [facility] Address: [address] [place] [address] Performed By: #### 2 4322-8, , 2776-09 #### [facility] CLIA [id number] [address] [place] [address] Hemoglobin Ql (U) Negative Normal Negative [facility] Comment on above: Order Comment: Speci men Type: BLOOD SPECIMEN Ordering Facility: [facility] Address: [address] [place] [address] Performed By: #### 2 432-8, , 2776-09 #### [facility] CLIA [id number] [address] [place] [address] Ketones Ql (U) Negative Normal Negative [facility] Comment on above: Order Comment: Speci men Type: BLOOD SPECIMEN Ordering Facility: [facility] Address: [address] [place], [place] [address] Performed By: #### 2 4323-8, , 2776-09 #### [facility] CLIA [id number] [address] [place] [address] Leukocyte esterase Test strip Ql (U) Negative Normal Negative [facility] Comment on above: Order Comment: Speci men Type: BLOOD SPECIMEN Ordering Facility: [facility] Address: [address] [place] [address] Performed By: #### 2 4323-8, , 2776-09 #### [facility] CLIA [id number] [address] [place] [address] Nitrite Ql (U) Negative Normal Negative [facility] Comment on above: Order Comment: Speci men Type: BLOOD SPECIMEN Ordering Facility: [facility] Address: [address] [place] [address] Performed By: #### 2 4323-8, , 2776-09 #### [facility] CLIA [id number] [address] [place] [address] pH (U) 6.0 [pH] Normal <8.5 [facility] Comment on above: Order Comment: Speci men Type: BLOOD SPECIMEN Ordering Facility: [facility] Address: [address] [place] [address] Performed By: #### 2 4323-8, , 2776-09 #### [facility] CLIA [id number] [address] [place] [address] Protein (U) [Mass/Vol] Negative Normal Negative [facility] Comment on above: Order Comment: Speci men Type: BLOOD SPECIMEN Ordering Facility: [facility] Address: [address] [place] [address] Performed By: #### 2 4323-8, 82199-3, 2777-1 #### [facility] CLIA [id number] [address] [place] [address] Specific gravity (U) [Rel density] 1.019 Normal 1.005-1.030 [facility] Comment on above: Order Comment: Speci men Type: BLOOD SPECIMEN Ordering Facility: [facility] Address: [address] [place] [address] Performed By: #### 2 4323-8, 95331-4, 2777 #### [facility] CLIA [id number] [address] [place] [address] Urobilinogen Ql (U) 1.0 EU/dL Normal 0.2-1.0 EU/dL [facility] Comment on above: Order Comment: Speci men Type: BLOOD SPECIMEN Ordering Facility: [facility] Address: [address] [place] [address] Performed By: #### 2 4323-8, 89554-4, 2777 #### [facility] CLIA [id number] [address] [place] [address] CNNMUSCOGEEon 06-25-2024 CNNMUSCOGEE Nurse Visit (HEMASA) LINK ROSEN ([id number]) 1955 M Date Time Provider Department 06/25/24 10:15 AM [facility] NURSE MUSA BECKER During your visit today, we recorded the following information about you: Briana Castillo MA 06/25/2024 10:38 AM Signed EKG done as ordered, transmitted to [facility]. Briana Castillo MA Referring Provider: USMAN LOWRY [[id number]] Allergies As of Date: 06/25/2024 (No Known Allergies) Date Reviewed: 03/18/2024 Reviewed by: Layla Jarquin RN - Fully Assessed Visit Diagnosis:Irregular heartbeat [I49.9] Order(s):ECG COMPLETE [ECG01] Order #: [id number] Prescriptions as of 06/25/2024 - predniSONE (DELTASONE) 5 mg tablet take 1 tablet by mouth once daily - sulfamethoxazole-trime thoprim (BACTRIM) 400-80 mg per tablet take 1 tablet by mouth once daily - metoprolol tartrate, short acting, (LOPRESSOR) 50 mg tablet Take 1 tablet by mouth two times a day. - rivaroxaban (XARELTO) 20 mg tablet Take 1 tablet by mouth daily with dinner. - amiodarone (PACERONE) 200 mg tablet Take 1 tablet by mouth two times a day for 7 days, THEN 1 tablet once daily. - mycophenolate mofetil (CELLCEPT) 250 mg capsule Take 2 capsules by mouth two times a day. - tacrolimus IR (PROGRAF) 1 mg capsule Take(1) capsule by mouth twice daily - gabapentin (NEURONTIN) 300 mg capsule Take 300 mg by mouth twice daily. - CALCIUM CARBONATE/VITAMIN D3 (CALCIUM + D ORAL) Take one(1) tablet two(2) times daily. Meds Comments as of 02/22/2010: Patient states he doesn't always take Pepcid. 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 Briana Castillo MA Encounter Status:Closed by BRIANA CASTILLO on 06/25/24 Normal [facility] CBC panel Auto (Bld)on 06-01 Erythrocyte distribution width (RBC) [Ratio] 13.2 % Normal 11.5-15.0 [facility] Comment on above: Order Comment: Speci men Type: BLOOD SPECIMEN Ordering Facility: [facility] Address: [address] [place] [address] Performed By: #### 2 4323-8, , 2776-09 #### [facility] CLIA [id number] [address] [place] [address] Hematocrit (Bld) [Volume fraction] 43.5 % Normal 39.0-51.0 [facility] Comment on above: Order Comment: Speci men Type: BLOOD SPECIMEN Ordering Facility: [facility] Address: [address] [place] [address] Performed By: #### 2 4323-8, , 2776-09 #### [facility] CLIA [id number] [address] [place] [address] Hemoglobin (Bld) [Mass/Vol] 15.2 g/dL Normal 13.0-17.0 [facility] Comment on above: Order Comment: Speci men Type: BLOOD SPECIMEN Ordering Facility: [facility] Address: [address] [place] [address] Performed By: #### 2 4323-8, , 2776-09 #### [facility] CLIA [id number] [address] [place] [address]24 MCH (RBC) [Entitic mass] 33.0 pg Normal 26.0-34.0 [facility] Comment on above: Order Comment: Speci men Type: BLOOD SPECIMEN Ordering Facility: [facility] Address: [address] [place] [address] Performed By: #### 2 4323-8, , 2776-09 #### [facility] CLIA [id number] [address] [place] [address]7817 MCHC (RBC) [Mass/Vol] 34.9 g/dL Normal 30.5-36.0 [facility] Comment on above: Order Comment: Speci men Type: BLOOD SPECIMEN Ordering Facility: [facility] Address: [address] [place] [address] Performed By: #### 2 4323-8, , 2776-09 #### [facility] CLIA [id number] [address] [place] [address]240 MCV (RBC) [Entitic vol] 94.6 fL Normal 80.0-100.0 [facility] Comment on above: Order Comment: Speci men Type: BLOOD SPECIMEN Ordering Facility: [facility] Address: [address] [place] [address] Performed By: #### 2 4323-8, , 2776-09 #### [facility] CLIA [id number] [address] [place] [address]5636 Nucleated RBC (Bld) [#/Vol] 10*3/uL Normal <0.01 [facility] Comment on above: Order Comment: Speci men Type: BLOOD SPECIMEN Ordering Facility: [facility] Address: [address] [place] [address] Performed By: #### 2 4323-8, , 2776-09 #### [facility] CLIA [id number] [address] [place] [address]3296 Platelet mean volume (Bld) [Entitic vol] 8.8 fL Low 9.0-12.7 [facility] Comment on above: Order Comment: Speci men Type: BLOOD SPECIMEN Ordering Facility: [facility] Address: [address] [place] [address] Performed By: #### 2 4323-8, , 2776- #### [facility] CLIA [id number] [address] [place] [address] Platelets (Bld) [#/Vol] 137 10*3/uL Low 150-400 [facility] Comment on above: Order Comment: Speci men Type: BLOOD SPECIMEN Ordering Facility: [facility] Address: [address] [place] [address] Performed By: #### 2 4323-8, 63890-0, 2776-09 #### [facility] CLIA [id number] [address] [place] [address] RBC (Bld) [#/Vol] 4.60 10*6/uL Normal 4.20-6.00 [facility] Comment on above: Order Comment: Speci men Type: BLOOD SPECIMEN Ordering Facility: [facility] Address: [address] [place] [address] Performed By: #### 2 4323-8, , 2776-09 #### [facility] CLIA [id number] [address] [place] [address] WBC (Bld) [#/Vol] 6.65 10*3/uL Normal 3.70-11.00 [facility] Comment on above: Order Comment: Speci men Type: BLOOD SPECIMEN Ordering Facility: [facility] Address: [address] [place] [address] Performed By: #### 2 4323-8, , 2776-09 #### [facility] CLIA [id number] [address] [place] [address]33 Comprehensive metabolic 2000 panelon 06-01-2024 Albumin [Mass/Vol] 4.3 g/dL Normal 3.9-4.9 [facility] Comment on above: Order Comment: Speci men Type: BLOOD SPECIMENOrdering Facility: [facility] Address: [address] [place] [address] Performed By: #### 2 777-1, 75648-8, ####[facility] [id number] [place] [address] ALP [Catalytic activity/Vol] 58 U/L Normal 38-113 [facility] Comment on above: Order Comment: Speci men Type: BLOOD SPECIMENOrdering Facility: [facility] Address: [address] [place] [address] Performed By: #### 2 777-1, , ####[facility] [id number] [place] [address] ALT [Catalytic activity/Vol] 9 U/L Low 10-54 [facility] Comment on above: Order Comment: Speci men Type: BLOOD SPECIMENOrdering Facility: [facility] Address: [address] [place] [address] Performed By: #### 2 777-1, , ####[facility] [id number] [place] [address] Anion gap [Moles/Vol] 10 mmol/L Normal 8-15 [facility] Comment on above: Order Comment: Speci men Type: BLOOD SPECIMENOrdering Facility: [facility] Address: [address] [place] [address] Performed By: #### 2 777-1, , ####[facility] [id number] [place] [address] AST [Catalytic activity/Vol] 14 U/L Normal 14-40 [facility] Comment on above: Order Comment: Speci men Type: BLOOD SPECIMENOrdering Facility: [facility] Address: [address] [place] [address] Performed By: #### 2 777-1, , ####[facility] [id number] [place] [address] Bilirubin [Mass/Vol] 1.4 mg/dL High 0.2-1.3 [facility] Comment on above: Order Comment: Speci men Type: BLOOD SPECIMENOrdering Facility: [facility] Address: [address] [place] [address] Performed By: #### 2 777-1, , ####[facility] [id number] [place] [address] Calcium [Mass/Vol] 9.7 mg/dL Normal 8.5-10.2 [facility] Comment on above: Order Comment: Speci men Type: BLOOD SPECIMENOrdering Facility: [facility] Address: [address] [place] [address] Performed By: #### 2 777-1, , ####[facility] [id number] [place] [address] Chloride [Moles/Vol] 106 mmol/L Normal 98-107 [facility] Comment on above: Order Comment: Speci men Type: BLOOD SPECIMENOrdering Facility: [facility] Address: [address] [place] [address] Performed By: #### 2 777-1, , ####[facility] [facility] LABCLIA [id number] [place] [address] CO2 [Moles/Vol] 26 mmol/L Normal 22-30 [facility] Comment on above: Order Comment: Speci men Type: BLOOD SPECIMENOrdering Facility: [facility] Address: [address] [place] [address] Performed By: #### 2 777-1, , ####[facility] LABCLIA [id number] [place] [address] Creatinine [Mass/Vol] 1.41 mg/dL High 0.73-1.22 [facility] Comment on above: Order Comment: Speci men Type: BLOOD SPECIMENOrdering Facility: [facility] Address: [address] [id number] Performed By: #### 2 777-1, 91729-3, 10392-3 ####[facility] LABCLIA [id number] [place] [address] Creatinine and Glomerular filtration rate.predicted panel (S/P/Bld) 55 mL/min/1.73m??? Low >=60 [facility] Comment on above: Order Comment: Speckina men Type: BLOOD SPECIMENOrdering Facility: [facility] Address: [address] [place] [address] Result Comment: Katalina mated Glomerular Filtration Rate [...] reflect actual GFR. Performed By: #### 2 777-1, 71481-8, 98322-7 ####[facility] LABCLIA [id number] [place] [address] Glucose [Mass/Vol] 113 mg/dL High 74-99 [facility] Comment on above: Order Comment: Anitra echeverria Type: BLOOD SPECIMENOrdering Facility: [facility] Address: [address] [place], [place] [address] Result Comment: The [place] Diabetes [employer] (ADA) provides guidance for cutoff [...] Standards of Medical Care in Diabetes 2016, [place] [employer]. Diabetes Care. 2016.39(Suppl 1). Performed By: #### 2 777-1, , ####[facility] LABCLIA [id number] [place] [address] Potassium [Moles/Vol] 4.3 mmol/L Normal 3.7-5.1 [facility] Comment on above: Order Comment: Speci men Type: BLOOD SPECIMENOrdering Facility: [facility] Address: [address] [place] [address] Performed By: #### 2 777-1, , ####[facility] LABIA [id number] [place] [address] Protein [Mass/Vol] 6.3 g/dL Normal 6.3-8.0 [facility] Comment on above: Order Comment: Speci men Type: BLOOD SPECIMENOrdering Facility: [facility] Address: [address] [place] [address] Performed By: #### 2 777-1, , ####[facility] LABIA [id number] [place] [address] Sodium [Moles/Vol] 142 mmol/L Normal 136-144 [facility] Comment on above: Order Comment: Speci men Type: BLOOD SPECIMENOrdering Facility: [facility] Address: [address] [place] [address] Performed By: #### 2 777-1, , ####[facility] LABCLIA [id number] [place] [address] Urea nitrogen [Mass/Vol] 15 mg/dL Normal 9-24 [facility] Comment on above: Order Comment: Speci men Type: BLOOD SPECIMENOrdering Facility: [facility] Address: [address] [place] [address] Performed By: #### 2 777-1, , ####[facility] [id number] [place] [address] Magnesium SerPl-ncon 06-01 Magnesium [Mass/Vol] 1.6 mg/dL Low 1.7-2.3 [facility] Comment on above: Order Comment: Speckina echeverria Type: BLOOD SPECIMENOrdering Facility: [facility] Address: [address] [place] [address] Performed By: #### 2 777-1, , ####[facility] LABCLIA [id number] [place] [address] Phosphate SerPl-mCncon 06-01 Phosphate [Mass/Vol] 2.7 mg/dL Normal 2.7-4.8 [facility] Comment on above: Order Comment: Speci jacki Type: BLOOD SPECIMENOrdering Facility: [facility] Address: [address] [place] [address] Performed By: #### 2 777-1, , ####[facility] LABCLIA [id number] [place] [address] Tacrolimus Bld-ncon 2023 Tacrolimus (Bld) [Mass/Vol] 6.6 ng/mL Normal 5.0-20.0 [facility] Comment on above: Order Comment: Anitra echeverria Type: BLOOD SPECIMEN [facility] Address: [address] [place], [place] [address] Result Comment: Olivia vidualized target levels for [...] situation. Test performed by chemiluminescent immunoassay using Manyeta Alinity i. Performed By: #### 2 4323-8, 14382-9, 2777-1 #### [facility] CLIA [id number] [address] [place] [address] Basic metabolic 2000 panelon 04-01-2024 Anion gap [Moles/Vol] 8 mmol/L Normal 8-15 [facility] Comment on above: Order Comment: Speci men Type: BLOOD SPECIMEN [facility] Address: [address] [place] [address] Performed By: #### 2 4323-8, , 2776-09 #### [facility] CLIA [id number] [address] [place] [address] Calcium [Mass/Vol] 10.1 mg/dL Normal 8.5-10.2 [facility] Comment on above: Order Comment: Speci men Type: BLOOD SPECIMEN [facility] Address: [address] [place] [address] Performed By: #### 2 4323-8, , 2776-09 #### [facility] CLIA [id number] [address] [place] [address] Chloride [Moles/Vol] 106 mmol/L Normal 98-107 [facility] Comment on above: Order Comment: Speci men Type: BLOOD SPECIMEN [facility] Address: [address] [place], [place] [address] Performed By: #### 2 4323-8, , 2776-09 #### [facility] CLIA [id number] [address] [place] [address] CO2 [Moles/Vol] 25 mmol/L Normal 22-30 [facility] Comment on above: Order Comment: Speci men Type: BLOOD SPECIMEN [facility] Address: [address] [place] [address] Performed By: #### 2 4323-8, , 2776- #### [facility] CLIA [id number] [address] [place] [address] Creatinine [Mass/Vol] 1.48 mg/dL High 0.73-1.22 [facility] Comment on above: Order Comment: Anitra echeverria Type: BLOOD SPECIMEN [facility] Address: [address] [place] [address] Performed By: #### 2 4323-8, 46623-6, 2776-09 #### [facility] CLIA [id number] [address] [place] [address] Creatinine and Glomerular filtration rate.predicted panel (S/P/Bld) 52 mL/min/1.73m??? Low >=60 [facility] Comment on above: Order Comment: Anitra echeverria Type: BLOOD SPECIMEN [facility] Address: [address] [place] [address] Result Comment: Katalina mated Glomerular Filtration Rate [...] Performed By: #### 2 4323-8, , 2776-09 #### [facility] CLIA [id number] [address] [place] [address] Glucose [Mass/Vol] 122 mg/dL High 74-99 [facility] Comment on above: Order Comment: Anitra echeverria Type: BLOOD SPECIMEN [facility] Address: [address] [place] [address] Result Comment: The [place] Diabetes Association (ADA) provides guidance for cutoff [...] Standards of Medical Care in Diabetes 2016, [place] [employer]. Diabetes Care. 2016.39(Suppl 1). Performed By: #### 2 4323-8, 09200-7, 2776-09 #### [facility] CLIA [id number] [address] [place] [address] Potassium [Moles/Vol] 4.3 mmol/L Normal 3.7-5.1 [facility] Comment on above: Order Comment: Speci men Type: BLOOD SPECIMEN [facility] Address: [address] [place] [address] Performed By: #### 2 4323-8, , 2776-09 #### [facility] CLIA [id number] [address] [place] [address] Sodium [Moles/Vol] 139 mmol/L Normal 136-144 [facility] Comment on above: Order Comment: Speci men Type: BLOOD SPECIMEN [facility] Address: [address] [place] [address] Performed By: #### 2 4323-8, , 2776-09 #### [facility] CLIA [id number] [address] [place] [address] Urea nitrogen [Mass/Vol] 14 mg/dL Normal 9-24 [facility] Comment on above: Order Comment: Speci men Type: BLOOD SPECIMEN [facility] Address: [address] [place] [address] Performed By: #### 2 4323-8, , 2776-09 #### [facility] CLIA [id number] [address] [place] [address] CBC panel Auto (Bld)on 04-01 Erythrocyte distribution width (RBC) [Ratio] 12.9 % Normal 11.5-15.0 [facility] Comment on above: Order Comment: Speci men Type: BLOOD SPECIMEN [facility] Address: [address] [place] [address] Performed By: #### 2 4323-8, , 2776-09 #### [facility] CLIA [id number] [address] [place] [address] Hematocrit (Bld) [Volume fraction] 42.8 % Normal 39.0-51.0 [facility] Comment on above: Order Comment: Speci men Type: BLOOD SPECIMEN [facility] Address: [address] [place], [place] [address] Performed By: #### 2 432-8, , 2776-09 #### [facility] CLIA [id number] [address] [place] [address] Hemoglobin (Bld) [Mass/Vol] 14.6 g/dL Normal 13.0-17.0 [facility] Comment on above: Order Comment: Speci men Type: BLOOD SPECIMEN [facility] Address: [address] [place], [place] [address] Performed By: #### 2 432-8, , 2776-09 #### [facility] CLIA [id number] [address] [place] [address] MCH (RBC) [Entitic mass] 31.8 pg Normal 26.0-34.0 [facility] Comment on above: Order Comment: Speci men Type: BLOOD SPECIMEN [facility] Address: [address] [place] [address] Performed By: #### 2 4323-8, , 2776-09 #### [facility] CLIA [id number] [address] [place] [address] MCHC (RBC) [Mass/Vol] 34.1 g/dL Normal 30.5-36.0 [facility] Comment on above: Order Comment: Speci men Type: BLOOD SPECIMEN [facility] Address: [address] [place] [address] Performed By: #### 2 4323-8, , 2776-09 #### [facility] CLIA [id number] [address] [place] [address] MCV (RBC) [Entitic vol] 93.2 fL Normal 80.0-100.0 [facility] Comment on above: Order Comment: Speci men Type: BLOOD SPECIMEN [facility] Address: [address] [place] [address] Performed By: #### 2 4323-8, , 2776-09 #### [facility] CLIA [id number] [address] [place] [address] Nucleated RBC (Bld) [#/Vol] 10*3/uL Normal <0.01 [facility] Comment on above: Order Comment: Speci men Type: BLOOD SPECIMEN [facility] Address: [address] [place] [address] Performed By: #### 2 4323-8, , 2776-09 #### [facility] CLIA [id number] [address] [place] [address] Platelet mean volume (Bld) [Entitic vol] 9.3 fL Normal 9.0-12.7 [facility] Comment on above: Order Comment: Speci men Type: BLOOD SPECIMEN [facility] Address: [address] [place] [address] Performed By: #### 2 4323-8, , 2776-09 #### [facility] CLIA [id number] [address] [place] [address] Platelets (Bld) [#/Vol] 149 10*3/uL Low 150-400 [facility] Comment on above: Order Comment: Speci men Type: BLOOD SPECIMEN [facility] Address: [address] [place] [address] Performed By: #### 2 4323-8, , 2776- #### [facility] CLIA [id number] [address] [place] [address] RBC (Bld) [#/Vol] 4.59 10*6/uL Normal 4.20-6.00 [facility] Comment on above: Order Comment: Anitra echeverria Type: BLOOD SPECIMEN [facility] Address: [address] [place] [address] Performed By: #### 2 4323-8, 34419-8, 2777-1 #### [facility] CLIA [id number] [address] [place] [address] WBC (Bld) [#/Vol] 6.77 10*3/uL Normal 3.70-11.00 [facility] Comment on above: Order Comment: Anitra echeverria Type: BLOOD SPECIMEN [facility] Address: [address] [place] [address] Performed By: #### 2 4323-8, 83627-5, 2777-1 #### [facility] CLIA [id number] [address] [place] [address] TSH SerPl-aCncon 04-01-2024 TSH Qn 7.010 m[IU]/L High 0.270-4.200 [facility] Comment on above: Order Comment: Anitra echeverria Type: BLOOD SPECIMENOrdering Facility: [facility] Address: [address] [place] [address] Performed By: #### 3 016-3 ####[facility] LABCLIA [id number] [place] [address] [place] Tacrolimus Bld-mCncon 2023 Tacrolimus (Bld) [Mass/Vol] 6.1 ng/mL Normal 5.0-20.0 [facility] Comment on above: Order Comment: Anitra echeverria Type: BLOOD SPECIMEN [facility] Address: [address] [place] [address] Result Comment: Olivia vidualized target levels for [...] using Gonzalez Alinity i. Performed By: #### 2 4323-8, 96391-1, 2777-1 #### [facility] CLIA [id number] [address] [place] [address] CNOVon 03-18-2024 CNOV Office Visit (CAEPAV ) LINK ROSEN ([id number]) 1955 M Date Time Provider Department 03/18/24 2:00 PM MELISA BRICEÑO CAEPAV During your visit today, we recorded the following information about you: Pulse Blood pressure Weight Height 94/minute 122/68 174.2 kg 2.134 m Melisa Briceño APRN.CNP 03/18/2024 4:07 PM [facility] [place] Department of Cardiovascular Medicine SECTION OF ELECTROPHYSIOLOGY AND PACING OUTPATIENT VISIT DATE March 18, 2024 OUTPATIENT VISIT TYPE ESTABLISHED PRIMARY CARE PHYSICIAN: [place] [address] CHIEF COMPLAINT: Follow Up HISTORY OF PRESENT ILLNESS: Mr. Rosen is a 68 year old male, patient of Dr. Pablo and Dr. Scott, who presents today for a cardiovascular medicine follow-up visit regarding atrial fibrillation s/p EPS:PVI 6.28. He since has had recurrence of atrial fibrillation and was seen in [facility] ER. PMH: Persistent atrial fibrillation s/p EPS:PVI, reported CAD, hypertension, dyslipidemia, HFmrEF (~45%), polycystic renal disease s/p renal transplant, PAST MEDICAL HISTORY Diagnosis Date Coronary atherosclerosis of unspecified type of vessel, [place] or graft Mild 3-vessel Coronary artery disease [...] Father Emphysema Father ALLERGIES No Known Allergies MEDICATIONS: metoprolol tartrate, short acting, (LOPRESSOR) 25 mg tablet Take 2 tablets by mouth two times a day. sucralfate (CARAFATE) 1 gram tablet Take 1 tablet by mouth before meals and at bedtime. only for 30 days, then discontinue there after rivaroxaban (XARELTO) 20 mg tablet Take 1 tablet by mouth daily with dinner. mycophenolate mofetil (CELLCEPT) 250 mg capsule Take 2 capsules by mouth two times a day. tacrolimus IR (PROGRAF) 1 mg capsule Take(1) capsule by mouth twice daily predniSONE (DELTASONE) 5 mg tablet take 1 tablet by mouth once daily sulfamethoxazole-trime thoprim (BACTRIM) 400-80 mg per tablet take 1 tablet by mouth once daily gabapentin (NEURONTIN) 300 mg capsule Take 300 mg by mouth twice daily. CALCIUM CARBONATE/VITAMIN D3 (CALCIUM + D ORAL) Take one(1) tablet two(2) times daily. REVIEW OF SYSTEMS: ROS is otherwise negative apart from what has been documented in HPI PHYSICAL EXAMINATION: BP 122/68 Pulse 94 Ht 213.4 cm (7') Wt (!) 174.2 kg (384 lb 0.7 oz) BMI 38.27 kg/m? General: Well appearing, in no acute distress, speaking in complete sentences. Skin: No clubbing, no cyanosis. Neck: No jugular venous distention, no carotid bruits Lungs: Clear to auscultation bilaterally, no wheezing or rhonchi. Heart: Irregularly irregular Abdomen: Soft, nontender, bowel sounds present Extremities: No peripheral edema . Grade 2/4 distal pulses bilaterally. Neuro: Oriented to person, place and time, alert, cooperative. CARDIOVASCULAR MEDICINE TESTING: Labs: Latest Ref Rng 11/03/2023 12/02/2023 03/02/2024 Glucose 74 - 99 mg/dL 128 (H) 110 (H) 133 (H) BUN 9 - 24 mg/dL 13 15 13 Creatinine 0.73 - 1.22 mg/dL 1.28 (H) 1.36 (H) 1.55 (H) Sodium 136 - 144 mmol/L 140 139 142 Potassium 3.7 - 5.1 mmol/L 4.7 4.3 4.3 Chloride 98 - 107 mmol/L 104 104 106 CO2 22 - 30 mmol/L 23 24 28 Anion Gap 8 - 15 mmol/L 13 11 8 eGFR >=60 mL/min/1.73m? 62 57 (L) 49 (L) Latest Ref Rng 11/03/2023 12/02/2023 03/02/2024 WBC 3.70 - 11.00 k/uL 6.64 6.39 6.19 RBC 4.20 - 6.00 m/uL 4.71 4.92 4.76 Hemoglobin 13.0 - 17.0 g/dL 14.9 15.4 15.1 Hematocrit 39.0 - 51.0 % 43.8 45.8 44.2 MCV 80.0 - 100.0 fL 93.0 93.1 92.9 MCH 26.0 - 34.0 pg 31.6 31.3 31.7 MCHC 30.5 - 36.0 g/dL 34.0 33.6 34.2 RDW-CV 11.5 - 15.0 % 13.2 13.3 12.6 Platelet Count 150 - 400 k/uL 141 (L) 136 (L) 143 (L) ECG 03/18/2024: Atrial fibrillation VR 94 ECHO 10/31/2023: - Technically difficult exam due to body habitus and suboptimal positioning. - Exam indication: Pre-op Cardioversion - The left ventricle is normal in size. Left ventricular systolic function is mildly decreased. EF = 45 ? 5% (visual est.) Definit (more content not included)... Normal [facility] UON70ta 03-18-2024 ECG01 Ventricular Rate : 9 4 BPM QRS Duration : 108 ms Q-T Interval : 358 ms QTC Calculation(Bazett) : 447 ms Calculated R [place] : -63 degrees Calculated T [place] : 52 degrees ATRIAL FIBRILLATION LEFT ANTERIOR FASCICULAR BLOCK CANNOT EXCLUDE INFERIOR MYOCARDIAL INFARCTION (MASKED BY FASCICULAR BLOCK?) , AGE UNDETERMINED ANTEROLATERAL INFARCTION , AGE UNDETERMINED ABNORMAL ECG Confirmed by WEI PABLO MD ([id number]) on 03/20/2024 10:01:07 AM NAME : LINK ROSEN PID : [id number] : 1955 Gender : Male Race : ORD : Procedure Date : Mar 18 2024 13:51:01 Edit Date : Mar 20 2024 10:01:10 Diagnosis: ATRIAL FIBRILLATION LEFT ANTERIOR FASCICULAR BLOCK CANNOT EXCLUDE INFERIOR MYOCARDIAL INFARCTION (MASKED BY FASCICULAR BLOCK?) , AGE UNDETERMINED ANTEROLATERAL INFARCTION , AGE UNDETERMINED ABNORMAL ECG Confirmed by WEI PABLO MD ([id number]) on 03/20/2024 10:01:07 AM Test Reason : Location : 192 : AVCRD Overread By : WEI PABLO MD Edited By : WEI PABLO MD Referred By : , Acquired by : Yury ash [facility] CNOVon 03-12-2024 CNOV Office Visit (CARDLO ) LINK ROSEN ([id number]) 1955 M Date Time Provider Department 03/12/24 9:30 AM EMANUEL SCOTT During your visit today, we recorded the following information about you: Pulse Blood pressure Weight 108/minute 134/80 173.7 kg Emanuel Scott MD 03/12/2024 10:07 AM Signed [facility] SECTION OF REGIONAL CARDIOLOGY OUTPATIENT VISIT DATE March 12, 2024 OUTPATIENT VISIT TYPE Established PRIMARY CARE PHYSICIAN: [place] [address] REFERRING PHYSICIAN: Usman Lowry [address] [facility] [address] C/C: Follow-up for atrial fibrillation Last and initial visit with me November 2023 HISTORY OF PRESENT ILLNESS: Mr. Rosen is a 68 year old male, seen in clinic today for follow-up for atrial fibrillation CV history reviewed, summarized and updated: Initial visit with il in Sep 2023-noted to be in Afib of unknown duration, first diagnosis. Status post DCCV November 05, 2023. Recurrence of A-Fib post DCCV Echocardiogram October 31, 2023-LVEF mildly decreased at 45%, RV normal size and function, dilated aorta at 4.9 cm. Was unable to complete stress SPECT due to A-Fib with RVR, had rest images only. Since prior visit with me, S/p PVI/ablation with Dr. Pablo February 2024. He denies any new symptoms. 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 Never smoker. REVIEW OF SYSTEMS: 10 systems reviewed and are negative with the exception of pertinent positives described in HPI PHYSICAL EXAMINATION: There were no vitals taken for this visit. General: No acute distress, appears comfortable HEENT: [...] Coronary atherosclerosis of unspecified type of vessel, [place] or graft Mild 3-vessel Coronary artery disease [...] ALLERGIES: ALLERGIES No Known Allergies CURRENT MEDICATIONS: sucralfate (CARAFATE) 1 gram tablet Take 1 tablet by mouth before meals and at bedtime. only for 30 days, then discontinue there after rivaroxaban (XARELTO) 20 mg tablet Take 1 tablet by mouth daily with dinner. mycophenolate mofetil (CELLCEPT) 250 mg capsule Take 2 capsules by mouth two times a day. metoprolol tartrate, short acting, (LOPRESSOR) 25 mg tablet Take 1.5 tablets by mouth two times a day. tacrolimus IR (PROGRAF) 1 mg capsule Take(1) capsule by mouth twice daily predniSONE (DELTASONE) 5 mg tablet take 1 tablet by mouth once daily sulfamethoxazole-trime thoprim (BACTRIM) 400-80 mg per tablet take 1 tablet by mouth once daily gabapentin (NEURONTIN) 300 mg capsule Take 300 mg by mouth twice daily. CALCIUM CARBONATE/VITAMIN D3 (CALCIUM + D ORAL) Take one(1) tablet two(2) times daily. IMPRESSION/PLAN AND RECOMMENDATIONS: Persistent atrial fibrillation, (more content not included)... Normal [facility] Abel [facility]2024 [facility]) SILASLINK ([id number]) 1955 M Date Time Provider Department 03/12/24 EMANUEL SCOTT During your visit today, we recorded the following information about you: CaldwellBelen 03/12/2024 10:08 AM Signed This form is used for MAIN CAMPUS APPOINTMENTS ONLY. Is this request for a [place] PET scan appointment? Yes: Cardiovascular Invasive Specialist: Belen Caldwell Requesting Person (Last Name, First Name): Emanuel Scott MD Area Code + Phone/Pager: [phone] Who do we call to schedule this appointment? Patient Requesting Staff Emanuel Scott MD Area Code + Phone/Pager: [phone] PET Orders (A delay in scheduling will result if the orders are not present at time of review): Internal ADDITIONAL ACTION MAY BE REQUIRED IF PATIENTS OON INSURANCE OR SELF PAY COVERAGE HAS NOT BEEN CLEARED FOR REQUESTED APPOINTMENT. Scheduling: WENDY: As soon as insurance will allow What account will this PET appointment be linked to? P/F Type of PET: Myocardial (Cardiac). Which PET orders are active (select all that apply)? PET Cardiac Rest/Stress Is this cardiac PET for Sarcoidosis?(See orders) No Is this a NON-[facility] Physician ordering a cardiac PET with a FAXED script? No. Same day/next day medically urgent scans please call [phone] to expedite LVEF: LV Ejection Fraction (%) Date Value 10/31/2023 45 LVEF Free text: No, I do not have a result. Please contact ordering MD and request PET scan once LVEF is available. Cardiac PET scan requests require a LVEF/Ejection Fraction result before we can triage and schedule. Please complete appropriate testing to provide the LVEF prior to requesting a Cardiac PET scan Questions: Please contact Cardiology [place] reading room at [phone] Additional comments: n/a Send requests to P CARDIAC PET MD Nevaeh Kern 03/12/2024 1:00 PM Naeem Boyer, We received a request for a PET Rest/Stress. Per our scheduling protocol if the LVEF is 50% or less we will need a PET CARDIAC Viability Order ([id number]). LVEF is 45%. Please place the additional order and advise once completed. Thanks, Nevaeh King 03/15/2024 1:55 PM Signed Preliminary Approval for Scheduling Purposes ONLY Are Cardiac PET orders Present: Yes Do the order comments specify a Protocol or Instruction? No LVEF: LV Ejection Fraction (%) Date Value 10/31/2023 45 Test Approved: No PET Perfusion Rest AND Stress w/ Viability (0109, 0102) Additional Comments: N/A Test Approved by: Nevaeh Corona If additional orders are required route to ordering physician and to P PET CORPORATE COMMUNICATIONS MANAGER with recommendations. If all recommended orders are present route to P PET CORPORATE COMMUNICATIONS MANAGER Buddy Payne 03/16/2024 8:13 AM Signed Pt scheduled 04/08 prep sent via [facility] Allergies As of Date: 03/12/2024 (No Known Allergies) Date Reviewed: 03/12/2024 Reviewed by: Amanda Ramirez MA - Fully Assessed Reason for Visit: Nm Pet Request [3598] Primary Visit Diagnosis:Heart disease [I51.9] Order(s):[place] PET/CT CARDIAC VIABILITY [[id number]] Order #: [id number] FUTURE Prescriptions as of 03/16/2024 - metoprolol tartrate, short acting, (LOPRESSOR) 25 mg tablet Take 2 tablets by mouth two times a day. - sucralfate (CARAFATE) 1 gram tablet Take 1 tablet by mouth before meals and at bedtime. only for 30 days, then discontinue there after - rivaroxaban (XARELTO) 20 mg tablet Take 1 tablet by mouth daily with dinner. - mycophenolate mofetil (CELLCEPT) 250 mg capsule Take 2 capsules by mouth two times a day. - tacrolimus IR (PROGRAF) 1 mg capsule Take(1) capsule by mouth twice daily - predniSONE (DELTASONE) 5 mg tablet take 1 tablet by mouth once daily - sulfamethoxazole-trime thoprim (BACTRIM) 400-80 mg per tablet take 1 tablet by mouth once daily - gabapentin (NEURONTIN) 300 mg capsule Take 300 mg by mouth twice daily. - CALCIUM CARBONATE/VITAMIN D3 (CALCIUM + D ORAL) Take one(1) tablet two(2) times daily. Meds Comments as of 02/22/2010: Patient states he doesn't always take Pepcid. 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] 05/08/2009 S/p cadaver renal transplant [Z94.0] Umbilical hernia [K42.9] Atrial fibrillation (HCC) [I48.91] 09/30/2023 Cardiomyopathy (HCC) [I42.9] 11/10/2023 Aneurysm of ascending aorta without rupture (HC*11/10/2023 S/P ablation of atrial fibrillation [Z98.890, Z*03/06/2024 Encounter Status:Closed by EMANUEL SCOTT on 03/12/24 Normal [facility] ECG COMPLETEon 03-12-2024 ECG COMPLETE Ventricular Rate : 1 08 BPM QRS Duration : 108 ms Q-T Interval : 350 ms QTC Calculation(Bazett) : 469 ms Calculated R [place] : -61 degrees Calculated T [place] : 71 degrees 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 CANNOT EXCLUDE INFERIOR MYOCARDIAL INFARCTION (MASKED BY FASCICULAR BLOCK?) , AGE UNDETERMINED ANTEROLATERAL INFARCTION , AGE UNDETERMINED ABNORMAL ECG Confirmed by JOSHUA ROONEY M.D. ([id number]) on 03/13/2024 6:22:47 AM NAME : LINK ROSEN PID : [id number] : 1955 Gender : Male Race : ORD : [id number] Procedure Date : Mar 12 2024 09:35:53 Edit Date : Mar 13 2024 06:22:54 Diagnosis: 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 CANNOT EXCLUDE INFERIOR MYOCARDIAL INFARCTION (MASKED BY FASCICULAR BLOCK?) , AGE UNDETERMINED ANTEROLATERAL INFARCTION , AGE UNDETERMINED ABNORMAL ECG Confirmed by JOSHUA ROONEY M.D. ([id number]) on 03/13/2024 6:22:47 AM Test Reason : I48.19 Persistent atrial fibrillation (HCC) Location : 145 : [place]ARD Overread By : JOSHUA ROONEY M.D. Edited By : JOSHUA ROONEY M.D. Referred By : Maria Dolores Acquired by : Yury quick [facility] Abel 03-11-2024 SEANN Telephone (FVPRAD) LINK ROSEN Jaxson ([id number]) 1955 M Date Time Provider Department 03/11/24 MELISA BRICEÑO FVABIMAEL During your visit today, we recorded the following information about you: Melisa Briceño APRN.SEAN 03/11/2024 12:48 PM Signed Received call from outside hospital ER that patient has presented with recurrent atrial fibrillation, rate is well controlled. He is reported to be hemodynamically stable and has no evidence of significant fluid volume overload. Patient has appointment with Dr. Scott tomorrow. They will advise him to keep this appointment with her. He will also be seeing me on 03/18. I spoke with Dr. Pablo and we discussed initiating Amiodarone for short term therapy to facilitate confucianism and maintenance of sinus rhythm during ~3 month blanking period s/p PVI and he agreed that such would be appropriate provided that we discuss this with his nephology transplant team to ensure there will be no significant interaction with Cellcept and tacrolimus. I will reach out ot this team and obtain their opinion prior to starting. Melisa Briceño APRN.[employer] REPRESENTATIVE Allergies As of Date: 03/11/2024 (No Known Allergies) Date Reviewed: 03/06/2024 Reviewed by: Zhanna Lozada, RN - Fully Assessed Reason for Visit: Clinical Update [1735] Prescriptions as of 03/18/2024 - metoprolol tartrate, short acting, (LOPRESSOR) 25 mg tablet Take 2 tablets by mouth two times a day. - sucralfate (CARAFATE) 1 gram tablet Take 1 tablet by mouth before meals and at bedtime. only for 30 days, then discontinue there after - rivaroxaban (XARELTO) 20 mg tablet Take 1 tablet by mouth daily with dinner. - mycophenolate mofetil (CELLCEPT) 250 mg capsule Take 2 capsules by mouth two times a day. - tacrolimus IR (PROGRAF) 1 mg capsule Take(1) capsule by mouth twice daily - predniSONE (DELTASONE) 5 mg tablet take 1 tablet by mouth once daily - sulfamethoxazole-trime thoprim (BACTRIM) 400-80 mg per tablet take 1 tablet by mouth once daily - gabapentin (NEURONTIN) 300 mg capsule Take 300 mg by mouth twice daily. - CALCIUM CARBONATE/VITAMIN D3 (CALCIUM + D ORAL) Take one(1) tablet two(2) times daily. Meds Comments as of 02/22/2010: Patient states he doesn't always take Pepcid. 02/22/10 Parisa Medel CMA Problem List As Of Date 03/11/2024 Noted Resolved Kidney Replaced by Transplant [Z94.0] 05/08/2009 Need for Prophylactic Immunotherapy [Z29.89] 05/08/2009 Hypertensive heart and kidney disease with end-*05/08/2009 Polycystic Kidney Disease [Q61.3] 05/08/2009 Ureteral Fistula [N28.89] 05/08/2009 S/p cadaver renal transplant [Z94.0] Umbilical hernia [K42.9] Atrial fibrillation (HCC) [I48.91] 09/30/2023 Cardiomyopathy (HCC) [I42.9] 11/10/2023 Aneurysm of ascending aorta without rupture (HC*11/10/2023 S/P ablation of atrial fibrillation [Z98.890, Z*03/06/2024 Encounter Status:Closed by MELISA BRICEÑO on 03[facility]18/[facility] HNO ID: [id number] Author: ALEJANDRA ROLLINS APRN.[employer] SAL[employer] REPRESENTATIVE Service: Electrophysiology Author Type: Nurse Practitioner Type: Discharge Summary Filed: 03/06/2024 16:09 Note Text: Attestation signed by Wei Pablo MD at 03/10/2024 8:24 AM [facility] STAFF PHYSICIAN NOTE OF PERSONAL INVOLVEMENT IN CARE IMPRESSION: Patient is a 68 year old male with persistent afib, adult PCKD s/p real transplant. Underwent afib ablation and did well. PLAN: Home as planned. F/u as arranged I have reviewed the documentation obtained and documented by the Nurse Practitioner and I have personally performed the substantive portion of the visit which includes the medical decision making. I have discussed the case and management of the patient's care. STAFF PHYSICIAN: Wei Pablo MD DATE OF SERVICE: March 10, 2024 TIME OF SERVICE: 8:23 AM DISCHARGE SUMMARY PATIENT NAME: Link Rosen ADMISSION DATE: 03/05/2024 DISCHARGE DATE: 03/06/2024 ATTENDING PHYSICIAN: Wei Pablo,* Code Status: Not on file Highest Readmission Risk Score: 9 The 30 day readmissions risk score is derived from an internally validated risk model which evaluates patient level characteristics, utilization history, medication orders and lab results up until the day of discharge. Patients with a score of 40 or above are considered highest risk for readmission. Specific patient level drivers will be listed at the bottom of the summary. REASON FOR HOSPITALIZATION: Mr. Rosen is a 68 year old male who lives in [place] with HTN, Polycystic kidney s/p renal transplant. Noted with new onset AF on recent office visit (09/2023) with RVR. Symptoms of exertional palpitation.Currently on metoprolol and Xarelto. Underwent DCCV into sinus rhythm in 11/05/23. However he reverted back into AF with associated symptoms again. Refractory to DCCV with early recurrence. KIESHA [...] discussed and he is agreeable to proceed. OPERATIONS DURING HOSPITALIZATION: None PROCEDURES DURING HOSPITALIZATION: 03-05-24 s/p PVI HOSPITAL COURSE: Admitted to PACU VS per protocol, post op ECG NSR, transferred to telemetry unit for further evaluation, overnight no events, reviewed telemetry NSR, bilateral groin dressing small amount of drainage present, change dressing, no active bleeding, pink in color, small amount of swelling present, no bruit, discussed with the patient the following: wound management, activity restrictions, medication education, follow up appointment scheduled, discharge home this morning. Transitions of Care Critical Issues: none LABS AND PROCEDURES PENDING AT DISCHARGE: No pending results. PATIENT CONDITION AT DISCHARGE: Stable DISCHARGE DISPOSITION: Home with Self Care Discharge Physical Exam: VITAL SIGNS: BP 142/69 Pulse 74 Temp 36.4 ?C (97.5 ?F) (Oral) Resp 18 Ht 213.4 cm (7') Wt (!) 173.9 kg (383 lb 4.8 oz) SpO2 97% BMI 38.19 kg/m? GENERAL: Alert, no distress, cooperative SKIN: Negative NECK: No jugulovenous distention LUNGS: Negative CARDIAC: Normal S1 and S2; no rubs, murmurs, or gallops ABDOMEN: Normal abdominal exam EXTREMITIES: bilateral groin dressing small amount of drainage present, change dressing, no active bleeding, pink in color, small amount of swelling present, no bruit NEURO: Negative PULSES: 2+ posterial tibial, 2+ dorsalis pedis INFORMATION PROVIDED TO PATIENT: medication education, wound management, activity restrictions WOUND/SURGICAL SITE CARE AND ACTIVITY: Post Ablation Follow up Instructions: 1. You may shower the day following your procedure. No tub baths or swimming for 14 days or until groin sites completely healed. 2. Check groin site(s) daily. Call our office if there is any increased swelling, drainage and/or pain. 3. Do not lift, push or pull anything >10 pounds for 2 weeks 4. You may use Tylenol every 6 hours for chest site discomfort. Please let the office know if chest discomfort persists. 5. You may drive after 24 hours. 6. Please notify the office if you have increased frequency in pain and/or burning on urination and/or fever, chills. 7. It is not uncommon to be fatigued the first 48-72 hours. This should improve. Please let our office know if it persists. 8. If you have any sudden changes in symptoms, please call EMS. Any questions or concerns please conta (more content not included)... Normal [facility] ANES POSTPROC EVALon 024 ANES POSTPROC EVAL HNO ID: [id number] Author: MACRINA SCHULTE MD Service: Anesthesiology Author Type: Physician Type: Anesthesia Postprocedure Evaluation Filed: 03/05/2024 17:12 Note Text: POST ANESTHESIA EVALUATION NOTE : 1955 Procedure Summary Date: 03/05/24 Room / Location: EP ROOM 2 / EP Anesthesia Start: 1332 Anesthesia Stop: 1554 Procedures: COMPLETE EPS W/PVI [...] Resp 20 03/05/24 1711 SpO2 99 % 03/05/24 1711 Vitals shown include unfiled device data. Post [...] SIGNATURE: Macrina Schulte MD PATIENT NAME: Link Rosne DATE: March 05, 2024 TIME: 5:12 PM CSN: [id number] [facility] ANES PRE-OPon 03-05-2024 ANES PRE-OP HNO ID: [id number] Author: MACRINA SCHULTE MD Service: Anesthesiology Author Type: Physician Type: Anesthesia Preprocedure Evaluation Filed: 03/05/2024 12:45 Note Text: ANESTHESIOLOGY DAY OF SURGERY NOTE : 1955 Procedure Information Date/Time: 03/05/24 1330 Procedures: COMPLETE EPS W/PVI ABL W/WO 3D MAP ICE - Carto, Ice, [place], enso etm esophageal cooling ADD'L PVI ABLATION Location: EP ROOM 2 / [facility] EP Surgeons: Wei Pablo MD Estimated body [...] and consent discussed: yes. Patient / Responsible [employer] agrees to proceed: yes Patient / Surrogate agrees to blood products: Yes Potential Anesthesia issues that may suggest increased risk of complications or contraindication to planned procedure: none. Vitals Value Taken Time BP 122/84 03/05/24 1125 Pulse 110 03/05/24 1125 Resp 16 [...] 1 tablet by mouth once daily - sulfamethoxazole-trime thoprim (BACTRIM) 400-80 mg per tablet take 1 [...] March 05, 2024 TIME: 12:02 PM CSN: [id number] [facility] ECG COMPLETEon 03-05-2024 ECG COMPLETE Ventricular Rate : 8 8 BPM Atrial Rate : 89 BPM P-R Interval : 216 ms QRS Duration : 117 ms Q-T Interval : 379 ms QTC Calculation(Bazett) : 459 ms Calculated P [place] : 25 degrees Calculated R [place] : -61 degrees Calculated T [place] : -8 degrees Sinus rhythm Atrial premature complexes Borderline prolonged GA interval Incomplete left bundle branch block Consider anterior infarct Abnormal ECG Confirmed by JOSHUA ROONEY M.D. ([id number]) on 03/09/2024 12:56:20 PM NAME : LINK ROSEN PID : [id number] : 1955 Gender : Male Race : ORD : [id number] Procedure Date : Mar 05 2024 17:38:48 Edit Date : Mar 09 2024 12:56:23 Diagnosis: Sinus rhythm Atrial premature complexes Borderline prolonged GA interval Incomplete left bundle branch block Consider anterior infarct Abnormal ECG Confirmed by JOSHUA ROONEY M.D. ([id number]) on 03/09/2024 12:56:20 PM Test Reason : Post OP Location : 400 : [facility] POOL Overread By : JOSHUA ROONEY M.D. Edited By : JOSHUA ROONEY M.D. Referred By : , Acquired by : [id number], [facility] ECG COMPLETE Ventricular Rate : 1 34 BPM Atrial Rate : 143 BPM P-R Interval : 136 ms QRS Duration : 114 ms Q-T Interval : 340 ms QTC Calculation(Bazett) : 508 ms Calculated R [place] : -62 degrees Calculated T [place] : 97 degrees Atrial fibrillation Incomplete left bundle branch block Consider anterior infarct Prolonged QT interval Baseline wander in lead(s) II,III,aVF Abnormal ECG Confirmed by EDI GALEANO MD ([id number]) on 03/08/2024 5:48:09 PM NAME : LINK ROSEN PID : [id number] : 1955 Gender : Male Race : ORD : [id number] Procedure Date : Mar 05 2024 11:41:16 [...] : , Acquired by : , Normal [facility] HISTORY PHYSICALon HISTORY PHYSICAL HNO ID: [id number] Author: YANA CARRINGTON APRN.[employer] SALES REPRESENTATIVE Service: Cardiovascular Medicine Author Type: Nurse Practitioner [...] Coronary atherosclerosis of unspecified type of vessel, [place] or graft Mild 3-vessel Coronary artery disease [...] times a day., Disp: 360 capsule, Rfl: 3, 03/05/2024 metoprolol tartrate, short acting, (LOPRESSOR) 25 mg tablet, Take 1.5 tablets by mouth two times a day., Disp: 270 tablet, Rfl: 3, 03/04/2024 rivaroxaban (XARELTO) 20 mg tablet, Take 1 tablet by mouth daily with dinner., Disp: 90 tablet, Rfl: 3, 03/04/2024 tacrolimus IR (PROGRAF) 1 mg capsule, Take(1) capsule by mouth twice daily, Disp: 180 capsule, Rfl: 3, 03/05/2024 predniSONE (DELTASONE) 5 mg tablet, take 1 tablet by mouth once daily, Disp: 90 tablet, Rfl: 3, 03/04/2024 sulfamethoxazole-trime thoprim (BACTRIM) 400-80 mg per tablet, take 1 [...] 03/02/24 0929 (more content not included)... Normal [facility] NURSING PROGon 03-05-2024 NURSING PROG HNO ID: [id number] Author: YESICA PARDO RN Service: Nursing Author Type: Registered Nurse [...] tele,safety reviewed, will cont to monitor Normal [facility] NURSING PROG HNO ID: [id number] Author: FLORY ARAGON, RN Service: Nursing Author Type: Registered Nurse Type: Nursing Progress Note Filed: 03/05/2024 19:05 Note Text: ~[id number] Pt arrived on unit from pre/post, pt [...] reach, report given to next shift RN. [facility] NURSING PROG HNO ID: [id number] Author: MATIAS METZGER RN Service: Nursing Author Type: Registered Nurse [...] states understanding. Teach back method used. Brother Kota and [id number]-hwt Rosalind at bedside. Call light in reach. 165 Patient tolerated food, able to swallow without any difficulty. 1730 Report [facility] D[facility]uan [facility] 1750 Pt ambulated to the restroom with standby staff assistance, steady gait. Denies any dizziness/lightheadedn ess. Site remains free of bleeding and hematoma with movement AND ambulation. 1800 [facility] in stable condition. All belongings returned. Reviewed site at the bedside with Roxi LEZAMA. Left groin had quarter size oozing, no hematoma 5lbs sand applied. Right groin no signs of bleeding or hematoma at site, bilateral DP pulses palpable, with good capillary refill,warm. This note was completed by: Matias Metzger [facility] TYPE + SCREENon 03-05-2024 ABO AB Normal [facility] Comment on above: Order Comment: Speci men Type: BLOOD SPECIMENOrdering Facility: [facility] Address: [address] [place] [address] Performed By: #### T SCR ####[facility] BANKCLIA [id number] [place] [id number] [place] [facility] HISTORICAL AB SCR STATUS Negative [facility] Comment on above: Order Comment: Speci men Type: BLOOD SPECIMENOrdering Facility: [facility] Address: [address] [place] [address] Performed By: #### T SCR ####[facility]ANKCL[facility] [id number] [place] [address] [place] Rh Nom (Bld) Positive [facility] Comment on above: Order Comment: Speci men Type: BLOOD SPECIMENOrdering Facility: [facility] Address: [address] [place] [address] Performed By: #### T SCR ####[facility]ANKCL[facility] [id number] [place] [id number] [place] TYPE AND SCREEN EXPIRATION 03/08/2024 23:59 [facility] Comment on above: Order Comment: Speci men Type: BLOOD SPECIMENOrdering Facility: [facility] Address: [address] [place] [address] Performed By: #### T SCR ####[facility]ANKCL[facility] [id number] [place] [id number] [place] CBC panel Auto (Bld)on 03-02 Erythrocyte distribution width (RBC) [Ratio] 12.6 % Normal 11.5-15.0 [facility] Comment on above: Order Comment: Speci men Type: BLOOD SPECIMENOrdering Facility: [facility] Address: [address] [place] [address] Performed By: #### 5 8410-2 ####[facility] LABCLIA [id number] [place] [address] Hematocrit (Bld) [Volume fraction] 44.2 % Normal 39.0-51.0 [facility] Comment on above: Order Comment: Speci men Type: BLOOD SPECIMENOrdering Facility: [facility] Address: [address] [place] [address] Performed By: #### 5 8410-2 ####[facility] LABCLIA [id number] [place] [address] Hemoglobin (Bld) [Mass/Vol] 15.1 g/dL Normal 13.0-17.0 [facility] Comment on above: Order Comment: Speci men Type: BLOOD SPECIMENOrdering Facility: [facility] Address: [address] [place] [address] Performed By: #### 5 8410-2 ####[facility] LABCLIA [id number] [place] [address] MCH (RBC) [Entitic mass] 31.7 pg Normal 26.0-34.0 [facility] Comment on above: Order Comment: Speci men Type: BLOOD SPECIMENOrdering Facility: [facility] Address: [address] [place] [address] Performed By: #### 5 8410-2 ####[facility] LABCLIA [id number] [place] [address] MCHC (RBC) [Mass/Vol] 34.2 g/dL Normal 30.5-36.0 [facility] Comment on above: Order Comment: Speci men Type: BLOOD SPECIMENOrdering Facility: [facility] Address: [address] [place] [address] Performed By: #### 5 8410-2 ####[facility] LABCLIA [id number] [place] [address] MCV (RBC) [Entitic vol] 92.9 fL Normal 80.0-100.0 [facility] Comment on above: Order Comment: Speci men Type: BLOOD SPECIMENOrdering Facility: [facility] Address: [address] [place] [address] Performed By: #### 5 8410-2 ####[facility] LABCLIA [id number] [place] [address] Nucleated RBC (Bld) [#/Vol] 10*3/uL Normal <0.01 [facility] Comment on above: Order Comment: Speci men Type: BLOOD SPECIMENOrdering Facility: [facility] Address: [address] [place] [address] Performed By: #### 5 8410-2 ####[facility] LABCLIA [id number] [place] [address] Platelet mean volume (Bld) [Entitic vol] 8.9 fL Low 9.0-12.7 [facility] Comment on above: Order Comment: Speci men Type: BLOOD SPECIMENOrdering Facility: [facility] Address: [address] [place] [address] Performed By: #### 5 8410-2 ####[facility] LABCLIA [id number] [place] [address] Platelets (Bld) [#/Vol] 143 10*3/uL Low 150-400 [facility] Comment on above: Order Comment: Speci men Type: BLOOD SPECIMENOrdering Facility: [facility] Address: [address] [place] [address] Performed By: #### 5 8410-2 ####[facility] LABCLIA [id number] [place] [address] RBC (Bld) [#/Vol] 4.76 10*6/uL Normal 4.20-6.00 [facility] Comment on above: Order Comment: Speci men Type: BLOOD SPECIMENOrdering Facility: [facility] Address: [address] [place], [place] [address] Performed By: #### 5 8410-2 ####[facility] LABCLIA [id number] [place] [address] WBC (Bld) [#/Vol] 6.19 10*3/uL Normal 3.70-11.00 [facility] Comment on above: Order Comment: Speci men Type: BLOOD SPECIMENOrdering Facility: [facility] Address: [address] [place] [address] Performed By: #### 5 8410-2 ####[facility] LABCLIA [id number] [place] [address] Comprehensive metabolic 2000 panelon 03-02-2024 Albumin [Mass/Vol] 4.2 g/dL Normal 3.9-4.9 [facility] Comment on above: Order Comment: Speci men Type: BLOOD SPECIMEN [facility] Address: [address] [place] [address] Performed By: #### 2 4323-8, 68361-7, 2776-1 #### [facility] CLIA [id number] [address] [place] [address] ALP [Catalytic activity/Vol] 59 U/L Normal 38-113 [facility] Comment on above: Order Comment: Speci men Type: BLOOD SPECIMEN [facility] Address: [address] [place] [address] Performed By: #### 2 4323-8, , 2776-1 #### [facility] CLIA [id number] [address] [place] [address] ALT [Catalytic activity/Vol] 11 U/L Normal 10-54 [facility] Comment on above: Order Comment: Speci men Type: BLOOD SPECIMEN [facility] Address: [address] [place] [address] Performed By: #### 2 4323-8, 11994-1, 2776-1 #### [facility] CLIA [id number] [address] [place] [address] Anion gap [Moles/Vol] 8 mmol/L Normal 8-15 [facility] Comment on above: Order Comment: Speci men Type: BLOOD SPECIMEN [facility] Address: [address] [place] [address] Performed By: #### 2 4323-8, 02987-8, 2776-09 #### [facility] CLIA [id number] [address] [place] [address] AST [Catalytic activity/Vol] 15 U/L Normal 14-40 [facility] Comment on above: Order Comment: Speci men Type: BLOOD SPECIMEN [facility] Address: [address] [place] [address] Performed By: #### 2 4323-8, , 2776-09 #### [facility] CLIA [id number] [address] [place] [address] Bilirubin [Mass/Vol] 1.3 mg/dL Normal 0.2-1.3 [facility] Comment on above: Order Comment: Speci men Type: BLOOD SPECIMEN [facility] Address: [address] [place] [address] Performed By: #### 2 4323-8, , 2776-09 #### [facility] CLIA [id number] [address] [place] [address] Calcium [Mass/Vol] 10.6 mg/dL High 8.5-10.2 [facility] Comment on above: Order Comment: Speci men Type: BLOOD SPECIMEN [facility] Address: [address] [place] [address] Performed By: #### 2 4323-8, , 2776-09 #### [facility] CLIA [id number] [address] [place] [address] Chloride [Moles/Vol] 106 mmol/L Normal 98-107 [facility] Comment on above: Order Comment: Speci men Type: BLOOD SPECIMEN [facility] Address: [address] [place] [address] Performed By: #### 2 4323-8, , 2776-09 #### [facility] CLIA [id number] [address] [place] [address] CO2 [Moles/Vol] 28 mmol/L Normal 22-30 [facility] Comment on above: Order Comment: Speci men Type: BLOOD SPECIMEN [facility] Address: [address] [place] [address] Performed By: #### 2 4323-8, , 2776-09 #### [facility] CLIA [id number] [address] [place] [address] Creatinine [Mass/Vol] 1.55 mg/dL High 0.73-1.22 [facility] Comment on above: Order Comment: Speci men Type: BLOOD SPECIMEN [facility] Address: [address] [place] [address] Performed By: #### 2 4323-8, , 2776-09 #### [facility] CLIA [id number] [address] [place] [address] Creatinine and Glomerular filtration rate.predicted panel (S/P/Bld) 49 mL/min/1.73m??? Low >=60 [facility] Comment on above: Order Comment: Speci men Type: BLOOD SPECIMEN [facility] Address: [address] [place] [address] Result Comment: Katalina mated Glomerular Filtration Rate [...] Performed By: #### 2 4323-8, , 2776-09 #### [facility] CLIA [id number] [address] [place] [address] Glucose [Mass/Vol] 133 mg/dL High 74-99 [facility] Comment on above: Order Comment: Speci men Type: BLOOD SPECIMEN Ordering Facility: [facility] Address: [address] [place] [address] Result Comment: The [place] [employer] (ADA) provides guidance for cutoff [...] Standards of Medical Care in Diabetes 2016, [place] [employer]. Diabetes Care. 2016.39(Suppl 1). Performed By: #### 2 4323-8, , 2776-09 #### [facility] CLIA [id number] [address] [place] [address] Potassium [Moles/Vol] 4.3 mmol/L Normal 3.7-5.1 [facility] Comment on above: Order Comment: Speci men Type: BLOOD SPECIMEN Ordering Facility: [facility] Address: [address] [place] [address] Performed By: #### 2 4323-8, , 2776-09 #### [facility] CLIA [id number] [address] [place] [address] Protein [Mass/Vol] 6.3 g/dL Normal 6.3-8.0 [facility] Comment on above: Order Comment: Speci men Type: BLOOD SPECIMEN Ordering Facility: [facility] Address: [address] [place] [address] Performed By: #### 2 4323-8, , 2776-09 #### [facility] CLIA [id number] [address] [place] [address] Sodium [Moles/Vol] 142 mmol/L Normal 136-144 [facility] Comment on above: Order Comment: Speci men Type: BLOOD SPECIMEN Ordering Facility: [facility] Address: [address] [place] [address] Performed By: #### 2 4323-8, , 2776-09 #### [facility] CLIA [id number] [address] [place] [address] Urea nitrogen [Mass/Vol] 13 mg/dL Normal 9-24 [facility] Comment on above: Order Comment: Speci men Type: BLOOD SPECIMEN Ordering Facility: [facility] Address: [address] [place] [address] Performed By: #### 2 4323-8, , 2776-09 #### [facility] CLIA [id number] [address] [place] [address] Magnesium SerPl-mCncon 03-02 Magnesium [Mass/Vol] 1.6 mg/dL Low 1.7-2.3 [facility] Comment on above: Order Comment: Speci men Type: BLOOD SPECIMEN Ordering Facility: [facility] Address: [address] [place] [address] Performed By: #### 2 4323-8, , 2776-09 #### [facility] CLIA [id number] [address] [place] [address] Phosphate SerPl-mCncon 03-02 Phosphate [Mass/Vol] 3.0 mg/dL Normal 2.7-4.8 [facility] Comment on above: Order Comment: Speci men Type: BLOOD SPECIMEN Ordering Facility: [facility] Address: [address] [place] [address] Performed By: #### 2 4323-8, , 2776-09 #### [facility] CLIA [id number] [address] [place] [address] Tacrolimus Bld-mCncon 2023 Tacrolimus (Bld) [Mass/Vol] 6.0 ng/mL Normal 5.0-20.0 [facility] Comment on above: Order Comment: Speci men Type: BLOOD SPECIMEN Ordering Facility: [facility] Address: [address] [place] [address] Result Comment: Olivia vidualized target levels for [...] situation. Test performed by chemiluminescent immunoassay using Manyeta Alinity i. Performed By: #### 1 1253-2 #### [facility] CLIA [id number] [address] [place] [address] [place] UA DIP, URINE (POC)on 2022 BILIRUBIN UA (POCT) Negative Negative [facility] CLARITY UA (POCT) Clear [facility] COLOR UA (POCT) Yellow [facility] GLUCOSE UA (POCT) Negative Negative mg/dL [facility] HEMOGLOBIN/BLOOD UA (POCT) Negative Negative [facility] KETONE UA (POCT) Negative Negative mg/dL [facility] LEUKOCYTES UA (POCT) Negative Negative [facility] NITRITE UA (POCT) Negative Negative [facility] PH UA (POCT) 7.5 4.5 - 8.0 [facility] Protein Ql (U) Negative Negative mg/dL [facility] SPECIFIC GRAVITY UA (POCT) 1.020 1.005 - 1.030 [facility] UROBILINOGEN UA (POCT) 0.2 E.U./dL Svitlana l E.U./dL [facility] US TRANSRECTAL PROSTATE (JOSE S) (POC) GUKI USE ONLYon 10-17-2022 [facility] URINALYSIS, REFLEX MICROSCOP ICon 09-16-2022 Bilirubin Ql (U) Negative Negative [facility] Clarity (Unsp spec) Clear Clear [facility] Color (U) Yellow Yellow [facility] Glucose Test strip (U) [Mass/Vol] Negative Trace, Negative [facility] Hemoglobin Ql (U) Negative Negative, Trace [facility] Ketones Ql (U) Negative Negative, Trace [facility] Leukocyte esterase Test strip Ql (U) Negative Negative, 25 Yandy/mL [facility] Nitrite Ql (U) Negative Negative [facility] pH (U) 6.0 [pH] 5.0 - 8.0 [facility] Protein (U) [Mass/Vol] Trace Trace , Negative [facility] Specific gravity (U) [Rel density] 1.029 1.005 - 1.030 [facility] Urobilinogen Ql (U) 1+ Abnormal Negative [facility] URINALYSIS, REFLEX MICROSCOP ICon 07-01-2022 Bilirubin Ql (U) Negative Negative [facility] Clarity (Unsp spec) Clear Clear [facility] Color (U) Yellow Yellow [facility] Glucose Test strip (U) [Mass/Vol] Negative Negative [facility] Hemoglobin Ql (U) Negative Negative [facility] Ketones Ql (U) Negative Negative [facility] Leukocyte esterase Test strip Ql (U) Negative Negative [facility] Nitrite Ql (U) Negative Negative [facility] pH (U) 6.5 [pH] 5.0 - 8.0 [facility] Protein (U) [Mass/Vol] Negative Negative [facility] Specific gravity (U) [Rel density] 1.016 1.005 - 1.030 [facility] Urobilinogen Ql (U) Negative Negative [facility] ISOPSA ASSAY FOR UROLOGY USE ONLYon 02-08-2022 INTERP IsoPSA test was not performed, as the test has not been validated in patients with tPSA <4.0ng/mL. [facility] ISOPSA 0 <6.1 [facility] TPSA 3.590 0-<4 [facility] min 3V*on 2020 XR ankle LT min 3V* [facility] Main [address] [address] XRay Report Signed Patient: Link Rosen MR#: [id number] : 1955 Acct:[id number] Age/Sex: 65 / M ADM Date: 02/06/21 Loc: SOXD Room: Type: [facility] Attending Dr: Chrissy Babin DPM, MS Ordering Provider: Chrissy Babin DPM, MS Date of Service: 02/06/21 XR/XR foot LT min 3V*: M79.672 ([id number]) XR/XR ankle LT min 3V*: M25.572 Copies to: Chrissy Babin DPM, MS 3 viewsLEFT foot plain film COMPARISON:None HISTORY:Status post LEFT ankle fusion. No hardware failure identified. Bony alignment is adequate. Fusion changes of the ankle joint noted. Midfoot degenerative changes are present. Calcaneal spurring seen posteriorly inferiorly. Mild distal foot degeneration. No acute bony findings. XR/XR foot LT min 3V* IMPRESSION:Unremarkabl e postoperative changes. No hardware failure. 3 views of the LEFT ankle No hardware failure or loosening identified. Bony alignment is adequate. Healing/healed fracture of distal fibula is present. Fusion changes of the ankle noted. No acute bony findings. Soft tissue prominence is present. No subcutaneous air. IMPRESSION: Uncomplicated postsurgical changes. No hardware failure. Impression dictated by: Gama Salas M.D.02/06/2021 1:52 PM Dictation Location: [place] [address] Transcribed By: [facility] 02/06/21 1352 Dictated By: Gama Salas DO 02/06/21 1349 Signed By: 02/06/21 1352 [facility] Vital Signs Date Time Vital Sign Value Performing Clinician Jovanna lee 01-24-2025 14:56-0400 Body mass index (BMI) [Ratio] 36.93 kg/m2 Emanuel Scott MD Work Phone: [facility] 01-24-2025 14:56-0400 Body weight 168.1 kg Emanuel Scott MD Work Phone: [facility] 01-24-2025 14:56-0400 Diastolic blood pressure 76 mm[Hg] Emanuel Scott MD Work Phone: [facility] 01-24-2025 14:56-0400 Heart rate 64 /min Emanuel Scott MD Work Phone: [facility] 01-24-2025 14:56-0400 Systolic blood pressure 116 mm[Hg] Emanuel Scott MD Work Phone: [facility] 11-25-2024 13:29-0400 Body mass index (BMI) [Ratio] 36.88 kg/m2 Wei Pablo MD Work Phone: [facility] 11-25-2024 13:29-0400 Body weight 167.9 kg Wei Pablo MD Work Phone: [facility] 11-25-2024 13:29-0400 Diastolic blood pressure 82 mm[Hg] Wei Pablo MD Work Phone: [facility] 11-25-2024 13:29-0400 Heart rate 80 /min Wei Pablo MD Work Phone: [facility] 11-25-2024 13:29-0400 Systolic blood pressure 132 mm[Hg] Wei Pablo MD Work Phone: [facility] 11-05-2024 13:00-0500 Body mass index (BMI) [Ratio] 36.8 kg/m2 Melisa Briceño DIAMOND POWDER MIXER.HOSTESS PARTY SALES REPRESENTATIVE Work Phone: [facility] 11-05-2024 13:00-0500 Body temperature 97.81 [degF] Melisa Briceño DIAMOND POWDER MIXER.HOSTESS PARTY SALES REPRESENTATIVE Work Phone: [facility] 11-05-2024 13:00-0500 Body weight 167.5 kg Melisa Briceño DIAMOND POWDER MIXER.HOSTESS PARTY SALES REPRESENTATIVE Work Phone: [facility] 11-05-2024 13:00-0500 Diastolic blood pressure 72 mm[Hg] Melisa Briceño DIAMOND POWDER MIXER.HOSTESS PARTY SALES REPRESENTATIVE Work Phone: [facility] 11-05-2024 13:00-0500 Heart rate 71 /min Melisa Briceño DIAMOND POWDER MIXER.HOSTESS PARTY SALES REPRESENTATIVE Work Phone: [facility] 11-05-2024 13:00-0500 Respiratory rate 22 /min Melisa Briceño DIAMOND POWDER MIXER.HOSTESS PARTY SALES REPRESENTATIVE Work Phone: [facility] 11-05-2024 13:00-0500 SaO2% (BldA) [Mass fraction] 99 % Melisa Briceño DIAMOND POWDER MIXER.HOSTESS PARTY SALES REPRESENTATIVE Work Phone: [facility] 11-05-2024 13:00-0500 Systolic blood pressure 124 mm[Hg] Melisa Briceño APRN.HOSTESS PARTY SALES REPRESENTATIVE Work Phone: [facility] 07-27-2024 13:20-0500 Body mass index (BMI) [Ratio] 37.7 kg/m2 Emanuel Scott MD Work Phone: [facility] 07-27-2024 13:20-0500 Body weight 171.6 kg Emanuel Scott MD Work Phone: [facility] 07-27-2024 13:20-0500 Diastolic blood pressure 74 mm[Hg] Emanuel Scott MD Work Phone: [facility] 07-27-2024 13:20-0500 Heart rate 78 /min Emanuel Scott MD Work Phone: [facility] 07-27-2024 13:20-0500 Systolic blood pressure 126 mm[Hg] Emanuel Scott MD Work Phone: [facility] 07-06-2024 13:41-0400 Body height 213.4 cm Nhi Oneil MD Work Phone: [facility] 07-06-2024 13:41-0400 Body mass index (BMI) [Ratio] 37.72 kg/m2 Nhi Oneil MD Work Phone: [facility] 07-06-2024 13:41-0400 Body weight 171.7 kg Nhi Oneil MD Work Phone: [facility] 07-06-2024 13:41-0400 Diastolic blood pressure 75 mm[Hg] Nhi Oneil MD Work Phone: [facility] 07-06-2024 13:41-0400 Heart rate 76 /min Nhi Oneil MD Work Phone: [facility] 07-06-2024 13:41-0400 Systolic blood pressure 117 mm[Hg] Nhi Oneil MD Work Phone: [facility] 03-18-2024 13:48-0400 Body height 213.4 cm Melisa Briceño DIAMOND POWDER MIXER.HOSTESS PARTY SALES REPRESENTATIVE Work Phone: [facility] 03-18-2024 13:48-0400 Body mass index (BMI) [Ratio] 38.27 kg/m2 Melisa Briceño DIAMOND POWDER MIXER.HOSTESS PARTY SALES REPRESENTATIVE Work Phone: [facility] 03-18-2024 13:48-0400 Body weight 174.2 kg Melisa Briceño DIAMOND POWDER MIXER.HOSTESS PARTY SALES REPRESENTATIVE Work Phone: [facility] 03-18-2024 13:48-0400 Diastolic blood pressure 68 mm[Hg] Melisa Briceño DIAMOND POWDER MIXER.HOSTESS PARTY SALES REPRESENTATIVE Work Phone: [facility] 03-18-2024 13:48-0400 Heart rate 94 /min Melisa Briceño DIAMOND POWDER MIXER.HOSTESS PARTY SALES REPRESENTATIVE Work Phone: [facility] 03-18-2024 13:48-0400 Systolic blood pressure 122 mm[Hg] Melisa Briceño DIAMOND POWDER MIXER.HOSTESS PARTY SALES REPRESENTATIVE Work Phone: [facility] 03-12-2024 09:32-0400 Body mass index (BMI) [Ratio] 38.16 kg/m2 Emanuel Scott MD Work Phone: [facility] 03-12-2024 09:32-0400 Body weight 173.7 kg Emanuel Scott MD Work Phone: [facility] 03-12-2024 09:32-0400 Diastolic blood pressure 80 mm[Hg] Emanuel Scott MD Work Phone: [facility] 03-12-2024 09:32-0400 Heart rate 108 /min Emanuel Scott MD Work Phone: [facility] 03-12-2024 09:32-0400 Systolic blood pressure 134 mm[Hg] Emanuel Scott MD Work Phone: [facility] 01-15-2024 13:24-0400 Body mass index (BMI) [Ratio] 38.62 kg/m2 Wei Pablo MD Work Phone: [facility] 01-15-2024 13:24-0400 Body weight 175.2 kg Wei Pablo MD Work Phone: [facility] 01-15-2024 13:24-0400 Diastolic blood pressure 82 mm[Hg] Wie Pablo MD Work Phone: [facility] 01-15-2024 13:24-0400 Heart rate 96 /min Wei Pablo MD Work Phone: [facility] 01-15-2024 13:24-0400 Systolic blood pressure 126 mm[Hg] Wei Pablo MD Work Phone: [facility] 11-10-2023 09:22-0500 Body weight 173.6 kg Emanuel Scott MD Work Phone: [facility] 11-10-2023 09:22-0500 Diastolic blood pressure 80 mm[Hg] Emanuel Scott MD Work Phone: [facility] 11-10-2023 09:22-0500 Heart rate 84 /min Emanuel Scott MD Work Phone: [facility] 11-10-2023 09:22-0500 Systolic blood pressure 130 mm[Hg] Emanuel Scott MD Work Phone: [facility] 06-30-2023 11:10-0400 Body height 213.4 cm Usman Lowry APRN.HOSTESS PARTY SALES REPRESENTATIVE Work Phone: [facility] 06-30-2023 11:10-0400 Body temperature 97.81 [degF] Usman Lowry APRN.HOSTESS PARTY SALES REPRESENTATIVE Work Phone: [facility] 06-30-2023 11:10-0400 Body weight 176.45 kg Usman Lowry APRN.HOSTESS PARTY SALES REPRESENTATIVE Work Phone: [facility] 06-30-2023 11:10-0400 Diastolic blood pressure 80 mm[Hg] Usman Lowry APRN.HOSTESS PARTY SALES REPRESENTATIVE Work Phone: [facility] 06-30-2023 11:10-0400 Heart rate 91 /min Usman Lowry DIAMOND POWDER MIXER.HOSTESS PARTY SALES REPRESENTATIVE Work Phone: [facility] 06-30-2023 11:10-0400 Systolic blood pressure 127 mm[Hg] Usman Lowry APRN.HOSTESS PARTY SALES REPRESENTATIVE Work Phone: [facility] Encounters Encounter Date Encounter Type Care Provider Facility Start: 01-24-2025 End: 01-24-2025 Patient encounter procedure [employer] [facility] Alyce Work Phone: Cardiology Comment on above: Cardiomyopathy, unsp ecified type (HCC); Aneurysm of ascending aorta without rupture PAF (paroxysmal atri al fibrillation) (HCC) (Primary Dx); Other cardiomyopathy (HCC); Aneurysm of ascending aorta without rupture; S/P ablation of atrial fibrillation Start: 01-24-2025 End: 01-24-2025 ambulatory [facility] Facility:[facility] Start: 01-16-2025 End: 01-21-2025 Refill Usman Lowry DIAMOND POWDER MIXER.HOSTESS PARTY SALES REPRESENTATIVE Work Phone: [facility] Comment on above: Refill Request Start: 12-13-2024 End: 12-13-2024 Refill Emanuel Scott MD Work Phone: Cardiology Comment on above: Refill Request Start: 11-30-2024 End: 11-30-2024 ambulatory USMAN LOWRY Facility:[facility] Start: 11-25-2024 End: 11-25-2024 ambulatory [facility] Facility:[facility] Start: 11-25-2024 End: 11-25-2024 Patient encounter procedure Wei Pablo MD Work Phone: Cardiology Comment on above: Atrial fibrillation, persistent (HCC) (Primary Dx) Start: 11-11-2024 End: 11-15-2024 Refill Usman Lowry DIAMOND POWDER MIXER.HOSTESS PARTY SALES REPRESENTATIVE Work Phone: [facility] Comment on above: Refill Request Start: 11-05-2024 End: 11-05-2024 ambulatory [facility] Facility:[facility] Start: 11-05-2024 End: 11-05-2024 Patient encounter procedure Melisa Briceño APRN.HOSTESS PARTY SALES REPRESENTATIVE Work Phone: Cardiology Comment on above: Atrial fibrillation, persistent (HCC) (Primary Dx); Current use of rn family anticoagulation; S/P ablation of atrial fibrillation; Primary hypertension; NICM (nonischemic cardiomyopathy) (HCC) Start: 10-18-2024 End: 10-22-2024 Refill Usman Lowry APRN.HOSTESS PARTY SALES REPRESENTATIVE Work Phone: [facility] Comment on above: Refill Request Start: 09-10-2024 End: 09-10-2024 ambulatory KATHLEEN SAMS Facility:[facility] Start: 08-30-2024 End: 08-30-2024 Telephone encounter Melisa Briceño APRN.HOSTESS PARTY SALES REPRESENTATIVE Work Phone: [facility] Adult Comment on above: Results Start: 08-30-2024 End: 08-30-2024 ambulatory USMAN LOWRY Facility:[facility] Start: 08-27-2024 End: 08-27-2024 Telephone encounter Wei Pablo MD Work Phone: Cardiology Start: 08-26-2024 End: 08-26-2024 Orders Only Nhi Oneil MD Work Phone: [facility] Comment on above: Hypomagnesemia (Prim negro Dx); Kidney replaced by transplant Start: 08-25-2024 End: 08-25-2024 Telephone encounter Wei Pablo MD Work Phone: Cardiology Start: 07-27-2024 End: 07-27-2024 ambulatory KATHLEEN SAMS Facility:[facility] Start: 07-27-2024 End: 07-27-2024 Patient encounter procedure Emanuel Scott MD Work Phone: Cardiology Comment on above: Cardiomyopathy, unsp ecified type (HCC) (Primary Dx); 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); S/P ablation of atrial fibrillation; PAF (paroxysmal atrial fibrillation) (HCC); On continuous oral anticoagulation Start: 07-06-2024 End: 07-06-2024 Patient encounter procedure Nhi Oneil MD Work Phone: [facility] Comment on above: Need for influenza v accination (Primary Dx); Need for pneumocystis prophylaxis; Kidney replaced by transplant; Persistent atrial fibrillation (HCC); 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) Start: 07-06-2024 End: 07-09-2024 ambulatory Nhi Oneil MD Work Phone: [facility] Start: 06-25-2024 End: 06-25-2024 ambulatory USMAN Barrera SHIMONShaunna Facility:[facility] Start: 06-25-2024 End: 06-25-2024 Nursing evaluation of patient and report Ma Nurse Musa Agarwal Work Phone: Hematology/Oncology Comment on above: Irregular heartbeat Start: 06-17-2024 End: 06-18-2024 Refill Usman Lowry [employer]AM[employer] POWDER MIXER.HOSTESS PARTY SALES REPRESENTATIVE Work Phone: [facility] Comment on above: Refill Request Start: 06-01-2024 End: 06-01-2024 ambulatory USMAN LOWRY Facility:[facility] Start: 05-19-2024 End: 05-24-2024 E-mail encounter from caregiver Wei Pablo MD Work Phone: Cardiology Start: 05-19-2024 End: 05-24-2024 Patient encounter procedure Wei Pablo MD Work Phone: Cardiology Comment on above: Appointment Request Start: 05-13-2024 End: 05-16-2024 ambulatory Emanuel Scott MD Work Phone: Cardiology Comment on above: metroprolol Start: 04-09-2024 Refill Emanuel gonzalez MD Work Phone: Cardiology Comment on above: Refill Request Start: 04-01-2024 End: 04-01-2024 ambulatory KATHLEEN SAMS Facility:[facility] Start: 03-18-2024 End: 03-18-2024 ambulatory MELISA BRICEÑO Facility:[facility] Start: 03-18-2024 End: 03-18-2024 Patient encounter procedure Melisa Briceño DIAMOND POWDER MIXER.HOSTESS PARTY SALES REPRESENTATIVE Work Phone: Cardiology Comment on above: Atrial fibrillation, persistent (HCC) (Primary Dx); S/P ablation of atrial fibrillation; S/p cadaver renal transplant; Current use of rn family anticoagulation; Primary hypertension Start: 03-16-2024 E-mail encounter fro m caregiver Usman Barrera Essence TOSCANOHOSTESS PARTY SALES REPRESENTATIVE Work Phone: [facility] Start: 03-16-2024 Follow-up encounter Usmansumanth Lowry APRN.HOSTESS PARTY SALES REPRESENTATIVE Work Phone: [facility] Comment on above: Follow up Start: 03-12-2024 Telephone encounter Emanuel tomlinson MD Work Phone: Cardiology Comment on above: Nm Pet Request Start: 03-12-2024 End: 03-12-2024 ambulatory [facility] Facility:[facility] Start: 03-12-2024 End: 03-12-2024 Patient encounter procedure Emanuel Scott MD Work Phone: Cardiology Comment on above: S/P ablation of atri al fibrillation (Primary Dx); Persistent atrial fibrillation (HCC); Abnormal EKG; Cardiomyopathy, unspecified type (HCC); 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) Start: 03-11-2024 Telephone encounter Melisa Barnes res, APRN.HOSTESS PARTY SALES REPRESENTATIVE Work Phone: [facility] Adult Comment on above: Clinical Update Start: 03-05-2024 End: 03-06-2024 [facility] Facility:[facility] Start: 03-02-2024 End: 03-02-2024 [facility] Facility:[facility] Start: 01-21-2024 Orders Only Wei Pablo MD Work Phone: Cardiology Comment on above: AF (paroxysmal atria l fibrillation) (HCC) (Primary Dx) Start: 01-15-2024 End: 01-15-2024 Patient encounter procedure Wei Pablo MD Work Phone: Cardiology Comment on above: AF (paroxysmal atria l fibrillation) (HCC) (Primary Dx) Start: 12-26-2023 End: 12-26-2023 Subsequent hospital visit by physician Injection [facility] Rej Work Phone: Nuclear Medicine Comment on above: Arrived Persistent atrial fi brillation (HCC) [I48.19] Start: 11-26-2023 Refill Usman L Lar d DIAMOND POWDER MIXER.HOSTESS PARTY SALES REPRESENTATIVE Work Phone: [facility] Comment on above: Refill Request Start: 11-20-2023 Refill Usman L Lar d DIAMOND POWDER MIXER.HOSTESS PARTY SALES REPRESENTATIVE Work Phone: [facility] Comment on above: Refill Request Start: 11-10-2023 End: 11-10-2023 Patient encounter procedure Emanuel Scott MD Work Phone: Cardiology Comment on above: Persistent atrial fi brillation (HCC) (Primary Dx); Abnormal EKG; Encounter for lipid screening for cardiovascular disease; Cardiomyopathy, unspecified type (HCC); 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) Start: 07-14-2023 ambulatory Usman Barrera Lar d DIAMOND POWDER MIXER.HOSTESS PARTY SALES REPRESENTATIVE Work Phone: [facility] Comment on above: afib Start: 07-10-2023 ambulatory Usman L Lar d DIAMOND POWDER MIXER.HOSTESS PARTY SALES REPRESENTATIVE Work Phone: [facility] Comment on above: ecg Start: 07-01-2023 End: 07-01-2023 Nursing evaluation of patient and report Ma Nurse Musa Agarwal Work Phone: Hematology/Oncology Comment on above: Irregular heartbeat (Primary Dx); Polycystic kidney disease Start: 07-01-2023 Patient encounter procedure [facility] Provider [facility] Department Start: 06-30-2023 End: 06-30-2023 Patient encounter procedure Umsan Lowry DIAMOND POWDER MIXER.HOSTESS PARTY SALES REPRESENTATIVE Work Phone: [facility] Comment on above: Kidney replaced by t ransplant (Primary Dx); Hypophosphatemia; Hypomagnesemia; Irregular heartbeat; Aftercare following organ transplant Start: 06-17-2023 Refill Usman L Lar d DIAMOND POWDER MIXER.HOSTESS PARTY SALES REPRESENTATIVE Work Phone: [facility] Comment on above: Refill Request Start: 12-03-2022 ambulatory Usman L Lar d DIAMOND POWDER MIXER.HOSTESS PARTY SALES REPRESENTATIVE Work Phone: [facility] Comment on above: meds Start: 11-05-2022 End: 11-05-2022 ambulatory Giorgio Burks MD Work Phone: Urology Comment on above: Elevated PSA (Primar y Dx) Start: 11-05-2022 End: 11-05-2022 Telemedicine consultation with patient Giorgio Burks MD Work Phone: [facility] Start: 10-17-2022 End: 10-17-2022 Patient encounter procedure Giorgio Bukrs MD Work Phone: Urology Comment on above: Elevated PSA (Primar y Dx) Start: 09-19-2022 Orders Only Kristina salas DIAMOND POWDER MIXER.HOSTESS PARTY SALES REPRESENTATIVE Work Phone: Urology Comment on above: Encounter for observ ation for other suspected diseases and conditions ruled out (Primary Dx) 09/03/23 labs Start: 09-16-2022 ambulatory Kristina salas [employer]AM[employer] POWDER MIXER.HOSTESS PARTY SALES REPRESENTATIVE Work Phone: Urology Start: 09-16-2022 End: 09-16-2022 Patient encounter procedure Kristina Whitaker DIAMOND POWDER MIXER.HOSTESS PARTY SALES REPRESENTATIVE Work Phone: Urology Comment on above: Elevated PSA (Primar y Dx) Start: 07-01-2022 ambulatory Usman sierra DIAMOND POWDER MIXER.HOSTESS PARTY SALES REPRESENTATIVE Work Phone: [facility] Start: 04-20-2022 End: 04-20-2022 ambulatory LANCE GLASGOW Facility: Start: 03-18-2022 Get Medical Advice Usman Lowry DIAMOND POWDER MIXER.HOSTESS PARTY SALES REPRESENTATIVE Work Phone: [facility] Comment on above: refills Start: 03-16-2022 Refill Usman sierra [employer]AM[employer] POWDER MIXER.HOSTESS PARTY SALES REPRESENTATIVE Work Phone: [facility] Comment on above: Refill Request Start: 02-26-2022 End: 02-26-2022 ambulatory Giorgio Burks MD Work Phone: Urology Comment on above: Elevated PSA (Primar y Dx) Start: 02-26-2022 End: 02-26-2022 Telemedicine consultation with patient Giorgio Burks MD Work Phone: [facility] Start: 02-07-2022 Orders Only Usman LYNN Work Phone: Urology Start: 01-31-2022 End: 01-31-2022 ambulatory Giorgio Burks MD Work Phone: Urology Comment on above: Elevated prostate sp ecific antigen (PSA) (Primary Dx); Elevated PSA Start: 01-31-2022 End: 01-31-2022 Telemedicine consultation with patient Giorgio Burks MD Work Phone: [facility] Start: 01-30-2022 End: 01-31-2022 ambulatory [facility] Facility: Start: 07-26-2021 End: 07-27-2021 [facility] Facility: Procedures Date Procedure Procedure Detail Performing Clinician Start: 01-24-2025 Echo tthrc r-t 2d w/wom-mode compl spec&colr d Emanuel Scott MD Work Phone: Start: 07-06-2024 Urnls dip stick/tabl et rgnt auto w/o microscopy Bulk Order Provider Start: 03-18-2024 Ecg routine ecg w/le ast 12 lds i&r only [facility] Provider Start: 03-12-2024 Ecg routine ecg w/le ast 12 lds i&r only [facility] Provider Start: 03-05-2024 Antibody screen KATHLEEN SAMS Comment on above: Order Comment: Speci men Type: BLOOD SPECIMENOrdering Facility: [facility] Address: [address] [place] [address] Performed By: #### T SCR ####[facility] [id number] [place] [address] [place] Start: 01-15-2024 Ecg routine ecg w/le ast 12 lds i&r only [facility] Provider Start: 12-02-2023 Lipid 1996 panel - S ritu or Plasma Injection Rej Work Phone: Start: 11-10-2023 Ecg routine ecg w/le ast 12 lds i&r only [facility] Provider Start: 10-17-2022 Urnls dip stick/tabl et rgnt auto w/o microscopy Giorgio Burks MD Work Phone: Start: 10-17-2022 Us transrct prstate vol brachytx plnning spx Giorgio Burks MD Work Phone: Start: 09-16-2022 Urnls dip stick/tabl et rgnt auto w/o microscopy Bulk Order Provider Start: 07-01-2022 Urnls dip stick/tabl et rgnt auto w/o microscopy Bulk Order Provider Start: 03-06-2021 Lipid 1996 panel - S ritu or Plasma Usman Lard DIAMOND POWDER MIXER.HOSTESS PARTY SALES REPRESENTATIVE Work Phone: Start: 05-08-2009 History of renal transplant Kidney replaced by transplant Usman Patricia PA Work Phone: History of renal transplant S/p cadaver renal transplant Usman Patricia PA Work Phone: History of renal transplant Kidney replaced by transplant Usman L Lard DIAMOND POWDER MIXER.HOSTESS PARTY SALES REPRESENTATIVE Work Phone: History of renal transplant Kidney replaced by transplant Usman L Lard DIAMOND POWDER MIXER.HOSTESS PARTY SALES REPRESENTATIVE Work Phone: History of renal transplant Kidney replaced by transplant Usman L Lard DIAMOND POWDER MIXER.HOSTESS PARTY SALES REPRESENTATIVE Work Phone: History of renal transplant Kidney replaced by transplant Usman L Lard DIAMOND POWDER MIXER.HOSTESS PARTY SALES REPRESENTATIVE Work Phone: History of renal transplant Kidney replaced by transplant Usman L Lard DIAMOND POWDER MIXER.HOSTESS PARTY SALES REPRESENTATIVE Work Phone: History of renal transplant Kidney replaced by transplant Usman L Lard DIAMOND POWDER MIXER.HOSTESS PARTY SALES REPRESENTATIVE Work Phone: History of renal transplant Kidney replaced by transplant Usman L Lard DIAMOND POWDER MIXER.HOSTESS PARTY SALES REPRESENTATIVE Work Phone: History of renal transplant Kidney replaced by transplant Usman L Lard DIAMOND POWDER MIXER.HOSTESS PARTY SALES REPRESENTATIVE Work Phone: History of renal transplant S/p cadaver renal transplant Melisa Briceño DIAMOND POWDER MIXER.HOSTESS PARTY SALES REPRESENTATIVE Work Phone: History of renal transplant Kidney replaced by transplant Usman L Lard DIAMOND POWDER MIXER.HOSTESS PARTY SALES REPRESENTATIVE Work Phone: History of renal transplant Kidney replaced by transplant Nhi Oneil MD Work Phone: History of renal transplant Kidney replaced by transplant Nhi Oneil MD Work Phone: History of renal transplant Kidney replaced by transplant Usman L Lard DIAMOND POWDER MIXER.HOSTESS PARTY SALES REPRESENTATIVE Work Phone: History of renal transplant S/p cadaver renal transplant Usman Lard DIAMOND POWDER MIXER.HOSTESS PARTY SALES REPRESENTATIVE Work Phone: History of renal transplant Kidney replaced by transplant Usman L Lard DIAMOND POWDER MIXER.HOSTESS PARTY SALES REPRESENTATIVE Work Phone: History of renal transplant 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) Usman L Lard DIAMOND POWDER MIXER.HOSTESS PARTY SALES REPRESENTATIVE Work Phone: Plan of Treatment Date Care Activity Detail Author Start: 12-01-2028 Lipid panel Lipid Screening [facility] Start: 04-29-2028 Prostate Cancer Screening Discussion Prostate Cancer Screening Discussion [facility] Start: 04-29-2028 Prostate specific antigen measurement Prostate Cancer Screening Discussion [facility] Start: 12-01-2027 Diabetes Screening Diabetes Screening [facility] Start: 09-03-2027 PROSTATE CANCER SCREENING DISCUSSION PROSTATE CANCER SCREENING DISCUSSION [facility] Start: 08-30-2027 Diabetes Screening Diabetes Screening [facility] Start: 06-01-2027 Diabetes Screening Diabetes Screening [facility] Start: 04-01-2027 Diabetes Screening Diabetes Screening [facility] Start: 03-02-2027 Diabetes Screening Diabetes Screening [facility] Start: 01-16-2027 PROSTATE CANCER SCREENING DISCUSSION PROSTATE CANCER SCREENING DISCUSSION [facility] Start: 12-01-2026 Diabetes Screening Diabetes Screening [facility] Start: 11-03-2026 Diabetes Screening Diabetes Screening [facility] Start: 06-03-2026 Diabetes Screening Diabetes Screening [facility] Start: 03-06-2026 Lipid 1996 panel - Serum or Plasma Lipid Screening [facility] Start: 03-06-2026 Lipid panel Lipid Screening [facility] Start: 03-06-2026 LIPID SCREEN LIPID SCREEN [facility] Start: 01-24-2026 BP Controlled (<130/80) BP Controlled (<130/80) [facility] Start: 12-02-2025 DIABETES SCREEN DIABETES SCREEN [facility] Start: 11-30-2025 Creatinine measurement Serum Creatinine [facility] Start: 11-05-2025 BP Controlled (<130/80) BP Controlled (<130/80) [facility] Start: 09-03-2025 DIABETES SCREEN DIABETES SCREEN [facility] Start: 08-30-2025 Creatinine measurement Serum Creatinine [facility] Start: 08-26-2025 End: 08-26-2025 Patient encounter procedure 08/26/2025 1:00 PM EST Office Visit Cardiology [address] [facility] [place] [address] Emanuel Scott MD [address] [facility] [place] [address] Return in about 7 months (around 08/26/2025). Cardiology Comment on above: Return in about 7 months (around ). Start: 06-01-2025 Complete blood count Hemoglobin/Hematocrit [facility] Start: 06-01-2025 Creatinine measurement Serum Creatinine [facility] Start: 04-01-2025 Complete blood count Hemoglobin/Hematocrit [facility] Start: 04-01-2025 Creatinine measurement Serum Creatinine [facility] Start: 03-02-2025 Complete blood count Hemoglobin/Hematocrit [facility] Start: 03-02-2025 Creatinine measurement Serum Creatinine [facility] Start: 03-01-2025 End: 03-01-2025 Patient encounter procedure 03/01/2025 9:15 AM EDT Office Visit [facility] [address] [place] [address] [place] [address] lab [facility] Comment on above: lab Start: 01-24-2025 End: 07-27-2025 Echocardiography ECHO Cardiology Routine Cardiomyopathy, unspecified type (HCC) 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) Expected: 01/24/2025, Expires: 07/27/[address] [facility] Work Phone: Comment on above: Expected: 01/24/2025, Expires: Start: 01-24-2025 End: 01-24-2025 Patient encounter procedure Cardiology Comment on above: Cardiomyopathy, unspecified type (HCC) [ I42.9]; 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) [I71.21] Return in about 6 mo nths (around 01/24/2025). Start: 12-01-2024 Complete blood count Hemoglobin/Hematocrit [facility] Start: 12-01-2024 Creatinine measurement Serum Creatinine [facility] Start: 11-30-2024 End: 11-30-2024 Patient encounter procedure 11/30/2024 9:15 AM EDT Office Visit [facility] [address] [place] [address] [place] [address] lab [facility] Comment on above: lab Start: 11-25-2024 End: 11-25-2024 Patient encounter procedure 11/25/2024 1:30 PM EDT Office Visit Cardiology [address] [facility] [place] [address] [place] [address] [place] [address] Follow up Per 07/27 Cardiology Comment on above: Follow up Per 07/27 Start: 11-05-2024 End: 11-05-2024 Patient encounter procedure 11/05/2024 1:00 PM EST Office Visit Cardiology [address] [place] [address] Melisa Briceño, DIAMOND POWDER MIXER.HOSTESS PARTY SALES REPRESENTATIVE [address] [place] [address] S/P [facility] Cardiology Comment on above: S/P [facility] Start: 11-03-2024 Creatinine measurement Serum Creatinine [facility] Start: 10-05-2024 End: 10-05-2024 Patient encounter procedure 10/05/2024 3:30 PM EST Office Visit Cardiology [address] [place] [address] Melisa Briceño, DIAMOND POWDER MIXER.HOSTESS PARTY SALES REPRESENTATIVE [address] [place] [address] S/P [facility] Cardiology Comment on above: S/P [facility] Start: 09-10-2024 End: 09-10-2024 Admission to same day surgery center 09/10/2024 11:00 AM EST - 09/10/2024 11:29 AM EST Surgery [facility] [address] [place] [address] [place] [address] [place] [address] CARDIOVERSION EXTERNAL ELECTIVE [facility] Comment on above: CARDIOVERSION EXTERNAL ELECTIVE Start: 09-10-2024 End: 09-10-2024 Cardioversion elective arrhythmia external CARDIOVERSION EXTERNAL ELECTIVE Atrial fibrillation, unspecified type (HCC) 09/10/2024 11:00 AM EST [facility] CATH Start: 09-10-2024 Subsequent hospital visit by physician 09/10/2024 11:00 AM EST Hospital Encounter [facility] [address] [place] [address] [place] [address] [place] [address] Atrial fibrillation, unspecified type (HCC) [I48.91] [facility] Comment on above: Atrial fibrillation, unspecified type (H CC) [I48.91] Start: 09-08-2024 Advance Directive Discussion Advance Directive Discussion [facility] Start: 08-30-2024 End: 08-30-2024 Patient encounter procedure 08/30/2024 9:30 AM EST Office Visit [facility] [address] [place] [address] [place] [address] lab [facility] Comment on above: lab Start: 07-27-2024 End: 07-27-2024 Patient encounter procedure 07/27/2024 1:30 PM EST Office Visit Cardiology [address] [place] [place] [address] Emanuel Scott MD [address] [facility] [place] [address] Return in about 4 months (around 07/13/2024). Cardiology Comment on above: Return in about 4 months (around 07/13/20). Start: 07-06-2024 End: 07-06-2024 Patient encounter procedure 07/06/2024 2:00 PM EDT Office Visit Kidney [facility] [address] [address] Nhi Oneil MD [address] [place] [address] 1 yr follow up [facility] Comment on above: 1 yr follow up Start: 06-03-2024 Hemoglobin/Hematocrit Hemoglobin/Hematocrit [facility] Start: 06-03-2024 Serum Creatinine Serum Creatinine [facility] Start: 06-01-2024 End: 06-01-2024 ambulatory 06/01/2024 9:30 AM EDT Results Only [facility] [address] [address] [place] [address] [facility] Start: 05-09-2024 Influenza vaccination [facility] Start: 04-08-2024 End: 04-08-2024 Patient encounter procedure 04/08/2024 3:45 PM EDT Appointment Molecular Imaging [address] [id number] PET Perfusion Rest & Stress w/ Viability (0109, 0102) Molecular Imaging Comment on above: PET Perfusion Rest & Stress w/ Viability (0109, 0102) Start: 04-08-2024 End: 04-08-2024 Patient encounter procedure Molecular Imaging Comment on above: PET Perfusion Rest & Stress w/ Viability (0109, 0102) Start: 04-01-2024 End: 04-01-2024 ambulatory 04/01/2024 9:30 AM EDT Results Only [facility] [address] [facility] [address] [facility] Start: 03-18-2024 End: 04-01-2024 Basic metabolic 2000 panel - Serum or Plasma BASIC METABOLIC PANEL Lab Routine Atrial fibrillation, persistent (HCC) Expected: 03/18/2024, Expires: 04/01/2024 [facility] Comment on above: Expected: 03/18/2024, Expires: Start: 03-18-2024 End: 04-01-2024 CBC panel - Blood by Automated count COMPLETE BLOOD COUNT Lab Routine Atrial fibrillation, persistent (HCC) Expected: 03/18/2024, Expires: 04/01/2024 [facility] Comment on above: Expected: 03/18/2024, Expires: Start: 03-18-2024 End: 03-18-2024 Patient encounter procedure 03/18/2024 2:00 PM EDT Office Visit Cardiology [address] [place] [address] Melisa Briceño APRN.HOSTESS PARTY SALES REPRESENTATIVE [address] [place] [address] S/P [facility] Comment on above: S/P [facility] Start: 03-18-2024 End: 04-01-2024 Tacrolimus [Mass/volume] in Blood [id number] BL Lab Routine S/p cadaver renal transplant Expected: 03/18/2024, Expires: 04/01/2024 [facility] Comment on above: Expected: 03/18/2024, Expires: Start: 03-18-2024 End: 04-01-2024 Thyrotropin [Units/volume] in Serum or Plasma THYROID STIMULATING HORMONE Lab Routine Atrial fibrillation, persistent (HCC) Expected: 03/18/2024, Expires: 04/01/2024 [facility] Comment on above: Expected: 03/18/2024, Expires: Start: 03-12-2024 End: 03-12-2024 Patient encounter procedure 03/12/2024 9:30 AM EDT Office Visit Cardiology [address] [place] [address] Emanuel Scott MD [address] [place] [address] 4 month follow up Cardiology Comment on above: 4 month follow up Start: 03-02-2024 End: 03-02-2024 Patient encounter procedure 03/02/2024 9:30 AM EDT Office Visit [facility] [address] [place] [address] [place] [address] LAB [facility] Comment on above: LAB Start: 02-24-2024 End: 02-24-2024 Patient encounter procedure 02/24/2024 1:00 PM EDT Office Visit Cardiology [address] [place] [address] Melisa Briceño APRN.HOSTESS PARTY SALES REPRESENTATIVE [address] [place] [address] S/P [facility] Cardiology Comment on above: S/P [facility] Start: 02-11-2024 End: 02-11-2024 Admission to same day surgery center 02/11/2024 12:15 PM EDT - 02/11/2024 3:48 PM EDT Surgery [facility] [address] [facility] [place] [address] [place] [address] [place] [address] COMPLETE EPS W/PVI ABL W/WO 3D MAP [...] physician 02/11/2024 12:15 PM EDT Hospital Encounter [facility] [address] [facility] [place] [address] [place] [address] [place] [address] Atrial fibrillation, unspecified type (HCC) [I48.91] [facility] Comment on above: Atrial fibrillation, unspecified type (H CC) [I48.91] Start: 01-21-2024 End: 04-21-2024 Basic metabolic 2000 panel - Serum or Plasma BASIC METABOLIC PANEL Lab Routine AF (paroxysmal atrial fibrillation) (HCC) Expected: 01/21/2024, Expires: 04/21/2024 [facility] Comment on above: Expected: 01/21/2024, Expires: Start: 01-21-2024 End: 04-21-2024 CBC panel - Blood by Automated count COMPLETE BLOOD COUNT Lab Routine AF (paroxysmal atrial fibrillation) (HCC) Expected: 01/21/2024, Expires: 04/21/[address] [facility] Work Phone: Comment on above: Expected: 01/21/2024, Expires: Start: 01-21-2024 End: 04-21-2024 TYPE AND SCREEN,30 DAY TYPE AND SCREEN,30 DAY Blood Bank Routine AF (paroxysmal atrial fibrillation) (HCC) Expected: 01/21/2024, Expires: 04/21/2024 [facility] Comment on above: Expected: 01/21/2024, Expires: Start: 12-03-2023 HEMOGLOBIN/HEMATOCRIT HEMOGLOBIN/HEMATOCRIT [facility] Start: 12-03-2023 SERUM CREATININE SERUM CREATININE [facility] Start: 11-10-2023 End: 02-09-2024 Lipid 1996 panel - Serum or Plasma LIPID PANEL BASIC Lab Routine Persistent atrial fibrillation (HCC) Abnormal EKG Encounter for lipid screening for cardiovascular disease Expected: 11/10/2023, Expires: 02/09/[address] [facility] Work Phone: Comment on above: Expected: 11/10/2023, Expires: Start: 09-08-2023 Advance Directive Discussion Advance Directive Discussion [facility] Start: 09-08-2023 Behavioral Health Screening Behavioral Health Screening [facility] Start: 09-08-2023 Depression Assessment Depression Assessment [facility] Start: 09-03-2023 HEMOGLOBIN/HEMATOCRIT HEMOGLOBIN/HEMATOCRIT [facility] Start: 09-03-2023 SERUM CREATININE SERUM CREATININE [facility] Start: 05-09-2023 Influenza vaccination [facility] (#[facility] Start: 05-05-2023 End: 07-05-2023 Prostate specific Ag [Mass/volume] in Serum or Plasma PSA/PROSTSPECAG DIAG Lab Routine Elevated PSA Expected: 05/05/2023 (Approximate), Expires: 07/05/[address] [facility] Work Phone: Comment on above: Expected: 05/05/2023 (Approximate), Expi res: 07/05/2023 Start: 09-16-2022 End: 11-16-2022 ISOPSA ASSAY FOR UROLOGY USE ONLY ISOPSA ASSAY FOR UROLOGY USE ONLY Lab Routine Elevated PSA Expected: 09/16/2022, Expires: 11/16/[address] [facility] Work Phone: Comment on above: Expected: 09/16/2022, Expires: 3 Start: 09-08-2022 ADVANCE DIRECTIVE DISCUSSION ADVANCE DIRECTIVE DISCUSSION [facility] Start: 09-08-2022 DEPRESSION ASSESSMENT DEPRESSION ASSESSMENT [facility] Start: 2022 ADVANCE DIRECTIVE DISCUSSION ADVANCE DIRECTIVE DISCUSSION [facility] Start: 05-09-2022 Influenza vaccination INFLUENZA (#1) [facility] Start: 02-26-2022 End: 04-28-2022 Prostate specific Ag [Mass/volume] in Serum or Plasma PSA/PROSTSPECAG DIAG Lab Routine Elevated PSA Expected: 02/26/2022, Expires: 04/28/[address] [facility] Work Phone: Comment on above: Expected: 02/26/2022, Expires: 2 Start: 09-08-2021 DEPRESSION ASSESSMENT DEPRESSION ASSESSMENT [facility] Start: 03-10-2018 HEMOGLOBIN/HEMATOCRIT HEMOGLOBIN/HEMATOCRIT [facility] Start: 06-11-2017 SERUM CREATININE SERUM CREATININE [facility] Start: 2017 RSV Vaccine (1 - 1-dose 60+ series) RSV Vaccine (1 - 1-dose 60+ series) [facility] Start: 2017 RSV Vaccine (1 - Risk 60-74 years 1-dose series) RSV Vaccine (1 - Risk 60-74 years 1-dose series) [facility] Start: 02-06-2015 DIABETES SCREEN DIABETES SCREEN [facility] Start: 2007 SHINGRIX VACCINE (1 of 2) SHINGRIX VACCINE (1 of 2) [facility] Start: 2002 COLOGUARD (FIT-DNA) COLOGUARD (FIT-DNA) [facility] Start: 2002 Colonoscopy COLONOSCOPY [facility] Start: 2002 COLORECTAL CANCER SCREENING COLORECTAL CANCER SCREENING [facility] Start: [address] COLONOGRAPHY [facility] Start: 2002 FECAL OCCULT BLOOD FECAL OCCULT BLOOD [facility] Start: 2002 Screening for malignant neoplasm of colon [facility] Start: 2002 SIGMOIDOSCOPY SIGMOIDOSCOPY [facility] Start: 1976 Hepatitis A Vaccine (1 of 2 - Risk 2-dose series) Hepatitis A Vaccine (1 of 2 - Risk 2-dose series) [facility] Start: 1976 Pneumococcal Vaccine: 50+ (1 of 2 - PCV) Pneumococcal Vaccine: 50+ (1 of 2 - PCV) [facility] Start: 1976 SHINGRIX VACCINE (1 of 2) SHINGRIX VACCINE (1 of 2) [facility] Start: 1976 Urine microalbumin profile [facility] Start: 1975 ANNUAL PCP TEAM CHRONIC DISEASE VISIT ANNUAL PCP TEAM CHRONIC DISEASE VISIT [facility] Start: 1975 Anxiety Screening Anxiety Screening [facility] Start: 1975 BP Controlled (<130/80) BP Controlled (<130/80) [facility] Start: 1975 Depression Screening Depression Screening [facility] Start: 1969 Adult depression screening assessment DEPRESSION SCREENING [facility] Start: 1963 PNEUMOCOCCAL (1 - PCV) PNEUMOCOCCAL (1 - PCV) [facility] Start: 1963 Pneumococcal Vaccine: 65+ (1 - PCV) Pneumococcal Vaccine: 65+ (1 - PCV) [facility] Start: 1963 Pneumococcal Vaccine: 65+ (1 of 2 - PCV) Pneumococcal Vaccine: 65+ (1 of 2 - PCV) [facility] Start: 1963 PNEUMOCOCCAL: 65+ (1 - PCV) PNEUMOCOCCAL: 65+ (1 - PCV) [facility] Start: 1962 COVID-19 VACCINE (#1) COVID-19 VACCINE (#1) [facility] Start: 1958 HEPATITIS A (1 of 2 - Risk 2-dose series) HEPATITIS A (1 of 2 - Risk 2-dose series) [facility] Start: 1957 COVID-19 VACCINE (#1) COVID-19 VACCINE (#1) [facility] Cardioversion electi ve arrhythmia internal spx CARDIOVERSION, ELECTIVE, ELECTRICAL Cardiology Routine Atrial fibrillation, persistent (HCC) Ordered: 03/18/2024 [facility] Comment on above: Ordered: 03/18/2024 End: 06-29-2024 CBC panel - Blood by Automated count CBC Lab Routine Kidney replaced by transplant Every 3 months for 4 Occurrences starting 06/30/2023 until 06/29/[address] [facility] Work Phone: Comment on above: Every 3 months for 4 Occurrences startin g 06/30/2023 until 06/29/2024 End: 08-26-2025 CBC W Auto Differential panel - Blood COMPLETE BLOOD COUNT AND DIFFERENTIAL Lab Routine Kidney replaced by transplant Every 3 months for 4 Occurrences starting 08/26/2024 until 08/26/2025 [facility] Comment on above: Every 3 months for 4 Occurrences startin g 08/26/2024 until 08/26/2025 End: 06-29-2024 Comprehensive metabolic 2000 panel - Serum or Plasma COMP METABOLIC PANEL Lab Routine Kidney replaced by transplant Every 3 months for 4 Occurrences starting 06/30/2023 until 06/29/[address] [facility] Work Phone: Comment on above: Every 3 months for 4 Occurrences startin g 06/30/2023 until 06/29/2024 End: 08-26-2025 Comprehensive metabolic 2000 panel - Serum or Plasma COMPREHENSIVE METABOLIC PANEL Lab Routine Kidney replaced by transplant Every 3 months for 4 Occurrences starting 08/26/2024 until 08/26/2025 [facility] Comment on above: Every 3 months for 4 Occurrences startin g 08/26/2024 until 08/26/2025 ECG COMPLETE [facility] Work Phone: Comment on above: Ordered: 11/10/2023 ECG COMPLETE [facility] Work Phone: Comment on above: Ordered: 01/15/2024 ECG COMPLETE [facility] Work Phone: Comment on above: Ordered: 03/12/2024 ECG COMPLETE [facility] Work Phone: Comment on above: Ordered: 03/18/2024 ECG COMPLETE ECG COMPLETE ECG Routine Atrial fibrillation, persistent (HCC) Ordered: 11/25/[address] [facility] Work Phone: Comment on above: Ordered: 11/25/2024 End: 06-29-2024 Magnesium [Mass/volume] in Serum or Plasma MAGNESIUM BLD Lab Routine Hypomagnesemia Every 3 months for 4 Occurrences starting 06/30/2023 until 06/29/[address] [facility] Work Phone: Comment on above: Every 3 months for 4 Occurrences startin g 06/30/2023 until 06/29/2024 End: 08-26-2025 Magnesium [Mass/volume] in Serum or Plasma MAGNESIUM Lab Routine Hypomagnesemia Kidney replaced by transplant Every 3 months for 4 Occurrences starting 08/26/2024 until 08/26/2025 [facility] Comment on above: Every 3 months for 4 Occurrences startin g 08/26/2024 until 08/26/2025 End: 10-19-2023 Mri pelvis w/o & w/contrast material MRI PROSTATE WO/W IVCON Radiology Routine Encounter for observation for other suspected diseases and conditions ruled out 1 Occurrences starting 09/19/2022 until 10/19/[address] [facility] Work Phone: Comment on above: 1 Occurrences starting 09/19/2022 until 10/19/2023 End: 12-09-2024 NM Heart Perfusion W stress and W radionuclide IV NM CARDIAC PERF STRESS/PHARM Radiology Routine Persistent atrial fibrillation (HCC) Abnormal EKG 1 Occurrences starting 11/10/2023 until 12/09/[address] [facility] Work Phone: Comment on above: 1 Occurrences starting 11/10/2023 until 12/09/2024 NM Heart Perfusion W stress and W radionuclide IV NM CARDIAC PERF STRESS/PHARM Radiology Routine Persistent atrial fibrillation (HCC) Abnormal EKG 12/26/2023 12:51 PM EDT [facility] Work Phone: End: 04-11-2025 PET+CT Heart WO contrast NM PET/CT CARDIAC PERF REST/STRESS Radiology Routine Persistent atrial fibrillation (HCC) Abnormal EKG S/P ablation of atrial fibrillation 1 Occurrences starting 03/12/2024 until 04/11/2025 [facility] Comment on above: 1 Occurrences starting 03/12/2024 until 04/11/2025 End: 06-29-2024 Phosphate [Mass/volume] in Serum or Plasma PHOSPHORUS INORGANIC Lab Routine Hypophosphatemia Every 3 months for 4 Occurrences starting 06/30/2023 until 06/29/[address] [facility] Work Phone: Comment on above: Every 3 months for 4 Occurrences startin g 06/30/2023 until 06/29/2024 End: 08-26-2025 Phosphate [Mass/volume] in Serum or Plasma PHOSPHORUS INORGANIC Lab Routine Kidney replaced by transplant Every 3 months for 4 Occurrences starting 08/26/2024 until 08/26/2025 [facility] Comment on above: Every 3 months for 4 Occurrences startin g 08/26/2024 until 08/26/2025 PROSTATE BIOPSY GUKI PROSTATE BI OPSY GUKI Procedures Routine Encounter for observation for other suspected diseases and conditions ruled out Ordered: 09/19/[address] [facility] Work Phone: Comment on above: Ordered: 09/19/2022 End: 04-11-2025 PT Heart for tissue viability NM PET/CT CARDIAC VIABILITY Radiology Routine Heart disease 1 Occurrences starting 03/12/2024 until 04/11/[address] [facility] Work Phone: Comment on above: 1 Occurrences starting 03/12/2024 until 04/11/2025 SURGICAL PATHOLOGY SURGICAL PATH OLOGY Lab Routine Elevated PSA 10/17/2022 9:23 AM EST [facility] Work Phone: End: 06-29-2024 Tacrolimus [Mass/volume] in Blood TACROLIMUS/FK-506 BL Lab Routine Kidney replaced by transplant Every 3 months for 4 Occurrences starting 06/30/2023 until 06/29/[address] [facility] Work Phone: Comment on above: Every 3 months for 4 Occurrences startin g 06/30/2023 until 06/29/2024 End: 08-26-2025 Tacrolimus [Mass/volume] in Blood TACROLIMUS/FK-506 BL Lab Routine Kidney replaced by transplant Every 3 months for 4 Occurrences starting 08/26/2024 until 08/26/[address] [facility] Work Phone: Comment on above: Every 3 months for 4 Occurrences startin g 08/26/2024 until 08/26/2025 [facility] Immunizations Immunization Date Immunization Notes Care Provider Anneliese jensen 07-06-2024 influenza, high dose seasonal, preservative-free Nhi Oneil MD Work Phone: [facility] 07-01-2022 influenza, high-dose , quadrivalent vaccine (FLUZONE HIGH DOSE QUADRIVALENT) Usman Lowry APRN.[employer] SALES REPRESENTATIVE Work Phone: [facility] 07-01-2022 influenza virus vacc ine, unspecified formulation Usman Lowry APRN.[employer] SALES REPRESENTATIVE Work Phone: [facility] 07-05-2021 influenza, injectabl e, quadrivalent, contains preservative Usman LYNN Work Phone: [facility] 07-03-2020 influenza, injectabl e, quadrivalent, contains preservative Usman Patricia PA Work Phone: [facility] 07-05-2019 influenza, injectabl e, quadrivalent, contains preservative Usman LYNN Work Phone: [facility] 05-09-2016 influenza virus vacc ine, unspecified formulation Usman LYNN Work Phone: [facility] 06-21-2010 influenza virus vacc ine, unspecified formulation Usman LYNN Work Phone: [facility] 07-13-2009 influenza virus vacc ine, unspecified formulation Usman LYNN Work Phone: [facility] 07-13-2009 novel influenza-H1N1 -09, all formulations Usman LYNN Work Phone: [facility] 02-07-2009 pneumococcal conjuga te vaccine, 7 valent Usman LYNN Work Phone: [facility] 12-31-2008 tuberculin skin test ; purified protein derivative solution, intradermal Emanuel Scott MD Work Phone: [facility] Payers Date Payer Category Payer Medicare [id number] 2022 Medicare [id number] 2021 Unknown [id number] 2019 Private Health Insurance [facility] CHOICE PLUS [id number] 2019-Present [phone] [address] [place] [address] O [id number] 1959 Private Health Insurance [id number] 1959 Self-pay 1957 Unknown [id number] 1957 Unknown [id number] 1957 Unknown [id number] Social History Date Type Detail Facility Start: 05-27-2011 Tobacco smoking stat us MTIS Never smoked tobacco [facility] Work Phone: Start: 07-05-2021 End: 01-24-2025 Alcohol intake Current non-drinker of alcohol (finding) [facility] Start: 01-23-2009 History SDOH Alcohol Comment no alcohol > 2 yrs, no previous hx of abuse [facility] Start: 1955 Sex Assigned At Male C [facility] Start: 01-06-2022 End: 07-01-2022 Exposure to SARS-CoV-2 (event) Not sure [facility] Start: 05-27-2011 Tobacco use and exposure Smokeless tobacco non-user [facility] Start: 09-16-2022 End: 09-20-2022 History of Social function [facility] Start: 09-16-2022 End: 09-20-2022 Tobacco use panel [facility] National Score (1-10 0), lower number is lower risk 62 [facility] Start: 01-25-2022 Gender identity Identifies as male gender (finding) [facility] Start: 01-25-2022 Sexual orientation Heterosexual (thierry davis) [facility] Medical Equipment Procedure Code Equipment Code Equipment Origin al Text Equipment Identifier Dates Mesh Srg Pco Opt im 8x6in - [id number] Start: 02-05-2012 Comment on above: Description: Optimiz ed Composite mesh Goals Date Patient Goal Desired Activity /State Personal health goal Functional Status Date Assessment Result Facility 03-06-2024 Are you deaf, or do you have serious difficulty hearing No 03/06/2024 11:12 AM Zhanna Fuentes RN [facility] 03-06-2024 Are you blind, or do you have serious difficulty seeing, even when wearing glasses No 03/06/2024 11:12 AM Zhanna Fuentes RN No [facility] 03-06-2024 Do you have serious difficulty walking or climbing stairs No 03/06/2024 11:12 AM Zhanna Fuentes RN No [facility] 03-06-2024 Do you have difficul ty dressing or bathing No 03/06/2024 11:12 AM Zhanna Fuentes RN [facility] 03-06-2024 Because of a physica l, mental, or emotional condition, do you have difficulty doing errands alone such as visiting a physician's office or shopping No 03/06/2024 11:12 AM Zhanna Fuentes RN No [facility] Mental Status Date Assessment Result Facility 03-06-2024 Because of a physica l, mental, or emotional condition, do you have serious difficulty concentrating, remembering, or making decisions No 03/06/2024 11:12 AM EDT Zhanna Lozada RN No [facility] Clinical Notes 07-27-2021 to 01-24-2025 Emanuel Scott MD - 01/24/2025 3:00 PM EDTTelephone Encounter - [facility] [place] 01/21/2025 8:44 AM EDTTelephone Encounter - [facility] - 01/21/2025 8:44 AM EDT Note Date & Type Note Facility 01-24-2025 History of Present illness Narrative Images from the original note were not included. [facility] CARDIOLOGY OUTPATIENT VISIT DATE January 24, 2025 OUTPATIENT VISIT TYPE Established PRIMARY CARE PHYSICIAN: Kathleen Sams [address] [place] [address] REFERRING PHYSICIAN: Usman Lowry [address] [facility] [address] C/C: Follow-up for atrial fibrillation Last and initial visit with il Jul 2024 HISTORY OF PRESENT ILLNESS: Mr. Rosen is a 69 year old male, seen in clinic today for follow-up for atrial fibrillation CV history reviewed, summarized and updated: Initial visit with il in Sep 2023-noted to be in Afib of unknown duration, first diagnosis. Status post DCCV November 05, 2023. Recurrence of A-Fib post DCCV Echocardiogram October 31, 2023-LVEF mildly decreased at 45%, RV normal size and function, dilated aorta at 4.9 cm. Was unable to complete stress SPECT due to A-Fib with RVR, had rest images only. S/p PVI/ablation with Dr. Pablo February 2024, with recurrence of atrial fibrillation post ablation Since prior visit with me, Repeat cardioversion in September 2024 Subsequently had follow-up with Dr. Pan in November 2024. No recurrence of atrial fibrillation since last DCCV. No chronic AED was recommended due to interaction with antirejection medications that he is on for his status post renal transplant. He is doing well since last cardioversion. No specific CV complaints today. Otherwise he denies any recurrent chest pain, shortness of breath, leg swelling and symptoms consistent with orthopnea and/or PND. 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 Never smoker. REVIEW OF SYSTEMS: 10 systems reviewed and are negative with the exception of pertinent positives described in HPI PHYSICAL EXAMINATION: BP 116/76 Pulse 64 Wt (!) 168.1 kg (370 lb 9.5 oz) BMI 36.93 kg/m General: No acute distress, appears comfortable [...] Normal mood and affect CARDIOVASCULAR MEDICINE TESTING: Reviewed echocardiogram done today, January 24, 2025. LVEF 61%, RV normal size and function, aorta dilated with maximum dimension of 4.4 cm at the sinus, 4.3 cm at the mid ascending aorta PAST MEDICAL HISTORY Diagnosis Date Arthritis Atrial fibrillation (HCC) 09/10/2024 Coronary atherosclerosis of unspecified type of vessel, [place] or graft Mild 3-vessel Coronary artery disease Hypertension Polycystic kidney, unspecified type 09/08/1993 S/p cadaver renal transplant (HCC) Umbilical hernia PAST SURGICAL HISTORY Procedure Laterality Date LAPAROSCOPY REPAIR INCISIONAL HERNIA REDUCIBLE 2001 umbilical PAST SURGICAL HISTORY OF 07/27/07 Colon Polypectomy- Tubular Adenoma PAST SURGICAL HISTORY OF 10/17 Placement of Left UE AVF x 2 TONSILLECTOMY PRIMARY/SECONDARY <AGE 14 Tonsillectomy SOCIAL HISTORY Social History Tobacco Use Smoking status: Never Smokeless tobacco: Never Vaping Use Vaping status: Never Used Substance Use Topics Alcohol use: No Comment: no alcohol > 2 yrs, no previous hx of abuse Drug use: No FAMILY HISTORY Problem Relation Age of Onset other (Polycystic Kidney [Other]) Mother other (Polycystic Kidney [Other]) Brother other (CVA [Other]) Father Emphysema Father ALLERGIES: ALLERGIES No Known Allergies CURRENT MEDICATIONS: mycophenolate mofetil (CELLCEPT) 250 mg capsule TAKE 2 CAPSULES BY MOUTH TWICE DAILY metoprolol tartrate, short acting, (LOPRESSOR) 25 mg tablet TAKE 1 AND 1/2 TABLETS BY MOUTH TWICE DAILY (Patient taking differently: Take 50 mg by mouth every 12 hours.) tacrolimus IR (PROGRAF) 1 mg capsule Take(1) capsule by mouth twice daily hydrOXYzine HCl (ATARAX) 25 mg tablet Take 25 mg by mouth once daily as needed. sulfamethoxazole-trimethoprim (BACTRIM) 400-80 mg per tablet Take 1 tablet by mouth every Friday, Friday, and Friday. predniSONE (DELTASONE) 5 mg tablet take 1 tablet by mouth once daily rivaroxaban (XARELTO) 20 mg tablet Take 1 tablet by mouth daily with dinner. gabapentin (NEURONTIN) 300 mg capsule Take 300 mg by mouth twice daily. CALCIUM CARBONATE/VITAMIN D3 (CALCIUM + D ORAL) Take one(1) tablet two(2) times daily. metoprolol tartrate, short acting, (LOPRESSOR) 50 mg tablet Take 1 tablet by mouth two times a day. (Patient not taking: Reported on 01/24/2025) IMPRESSION/PLAN AND RECOMMENDATIONS: Paroxysmal atrial fibrillation, was diagnosed in Jun 2023. S/p PVI/ablation 03/05/2024, with subsequent recurrence of atrial fibrillation. Now status post redo DCCV in September 2024 with no known recurrence of atrial fibrillation since then. AADs are relatively contraindicated given interaction with his antiresistance medications status post renal transplant. Previous echocardiogram showed mild decline in LVEF while in A-fib, echocardiogram today normal sinus rhythm with normal LVEF. No significant valvular dysfunction. [id number] score of 2, primarily with history of hypertension and age. Intermediate risk of thromboembolism. Currently tolerating anticoagulation without any bleeding complications. Thoracic aortic aneurysm, maximum dimension at 4.4 cm in the sinus, 4.3 cm in the mid ascending aorta. Previous measurement of 4.8 cm in the mid ascending aorta was likely an error as ascending aorta was not well-visualized on prior echocardiogram. Continue metoprolol to tartrate to 50 mg twice daily Continue Xarelto 20 mg daily Follow-up 6-7 months Emanuel Scott MD documented in this encounter [facility] 01-24-2025 Note HNO ID: [id number] Author: EMANUEL SCOTT MD Service: ? Author Type: Physician Type: Progress Notes Filed: 01/24/2025 15:26 Note Text: [facility] C[facility]Y OUTPATIENT VISIT DATE January 24, 2025 OUTPATIENT VISIT TYPE Established PRIMARY CARE PHYSICIAN: Kathleen Sams [address] [facility] [place] [address] REFERRING PHYSICIAN: Usman Lowry [address] [facility] [address] C/C: Follow-up for atrial fibrillation Last and initial visit with me Jul 2024 HISTORY OF PRESENT ILLNESS: Mr. Rosen is a 69 year old male, seen in clinic today for follow-up for atrial fibrillation CV history reviewed, summarized and updated: Initial visit with il in Sep 2023-noted to be in Afib of unknown duration, first diagnosis. Status post DCCV November 05, 2023. Recurrence of A-Fib post DCCV Echocardiogram October 31, 2023-LVEF mildly decreased at 45%, RV normal size and function, dilated aorta at 4.9 cm. Was unable to complete stress SPECT due to A-Fib with RVR, had rest images only. S/p PVI/ablation with Dr. Pablo February 2024, with recurrence of atrial fibrillation post ablation Since prior visit with me, Repeat cardioversion in September 2024 Subsequently had follow-up with Dr. Pan in November 2024. No recurrence of atrial fibrillation since last DCCV. No chronic AED was recommended due to interaction with antirejection medications that he is on for his status post renal transplant. He is doing well since last cardioversion. No specific CV complaints today. Otherwise he denies any recurrent chest pain, shortness of breath, leg swelling and symptoms consistent with orthopnea and/or PND. 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 Never smoker. REVIEW OF SYSTEMS: 10 systems reviewed and are negative with the exception of pertinent positives described in HPI PHYSICAL EXAMINATION: BP 116/76 Pulse 64 Wt (!) 168.1 kg (370 lb 9.5 oz) BMI 36.93 kg/m? General: No acute distress, appears comfortable [...] Normal mood and affect CARDIOVASCULAR MEDICINE TESTING: Reviewed echocardiogram done today, January 24, 2025. LVEF 61%, RV normal size and function, aorta dilated with maximum dimension of 4.4 cm at the sinus, 4.3 cm at the mid ascending aorta PAST MEDICAL HISTORY Diagnosis Date Arthritis Atrial fibrillation (HCC) 09/10/2024 Coronary atherosclerosis of unspecified type of vessel, [place] or graft Mild 3-vessel Coronary artery disease Hypertension Polycystic kidney, unspecified type 09/08/1993 S/p cadaver renal transplant (HCC) Umbilical hernia PAST SURGICAL HISTORY Procedure Laterality Date LAPAROSCOPY REPAIR INCISIONAL HERNIA REDUCIBLE 2001 umbilical PAST SURGICAL HISTORY OF 07/27/07 Colon Polypectomy- Tubular Adenoma PAST SURGICAL HISTORY OF 10/17 Placement of Left UE AVF x 2 TONSILLECTOMY PRIMARY/SECONDARY Tonsillectomy SOCIAL HISTORY Social History Tobacco Use Smoking status: Never Smokeless tobacco: Never Vaping Use Vaping status: Never Used Substance Use Topics Alcohol use: No Comment: no alcohol > 2 yrs, no previous hx of abuse Drug use: No FAMILY HISTORY Problem Relation Age of Onset other (Polycystic Kidney [Other]) Mother other (Polycystic Kidney [Other]) Brother other (CVA [Other]) Father Emphysema Father ALLERGIES: ALLERGIES No Known Allergies CURRENT MEDICATIONS: mycophenolate mofetil (CELLCEPT) 250 mg capsule TAKE 2 CAPSULES BY MOUTH TWICE DAILY metoprolol tartrate, short acting, (LOPRESSOR) 25 mg tablet TAKE 1 AND 1/2 TABLETS BY MOUTH TWICE DAILY (Patient taking differently: Take 50 mg by mouth every 12 hours.) tacrolimus IR (PROGRAF) 1 mg capsule Take(1) capsule by mouth twice daily hydrOXYzine HCl (ATARAX) 25 mg tablet Take 25 mg by mouth once daily as needed. sulfamethoxazole-trimethoprim (BACTRIM) 400-80 mg per tablet Take 1 tablet by mouth every Friday, Friday, and Friday. predniSONE (DELTASONE) 5 mg tablet take 1 tablet by mouth once daily rivaroxaban (XARELTO) 20 mg tablet Take 1 tablet by mouth daily with dinner. gabapentin (NEURONTIN) 300 mg capsule Take 300 mg by mouth twice daily. CALCIUM CARBONATE/VITAMIN D3 (CALCIUM + D ORAL) Take one(1) tablet two(2) times daily. metoprolol tartrate, short acting, (LOPRESSOR) 50 mg tablet Take 1 tablet by mouth two times a day. (Patient (more content not included)... [facility] 01-21-2025 Telephone encounter Note Patient's request for medication is as follows: Requested Prescriptions Pending Prescriptions Disp Refills mycophenolate mofetil (CELLCEPT) 250 mg capsule [Pharmacy Med Name: MYCOPHENOLATE 250MG CAPSULES] 360 capsule 3 Sig: TAKE 2 CAPSULES BY MOUTH TWICE DAILY Please approve the above prescription(s) to electronically send to pharmacy. MINDY Kaur [facility] 01-21-2025 Miscellaneous Notes Patient's request for medication is as follows: Requested Prescriptions Pending Prescriptions Disp Refills mycophenolate mofetil (CELLCEPT) 250 mg capsule [Pharmacy Med Name: MYCOPHENOLATE 250MG CAPSULES] 360 capsule 3 Sig: TAKE 2 CAPSULES BY MOUTH TWICE DAILY Please approve the above prescription(s) to electronically send to pharmacy. MINDY Kaur documented in this encounter [facility] 12-13-2024 Miscellaneous Notes The following approved medication requests have been transmitted electronically. Requested Prescriptions Signed Prescriptions Disp Refills metoprolol tartrate, short acting, (LOPRESSOR) 25 mg tablet 270 tablet 3 Sig: TAKE 1 AND 1/2 TABLETS BY MOUTH TWICE DAILY Authorizing Provider: EMANUEL SCOTT Ordering User: SALINA ROBERTS APRN.[employer] SAL[employer] REPRESENTATIVE Received request for refill of the following medications: Requested Prescriptions Pending Prescriptions Disp Refills metoprolol tartrate, short acting, (LOPRESSOR) 25 mg tablet [Pharmacy Med Name: METOPROLOL TARTRATE 25MG TABLETS] 270 tablet 3 Sig: TAKE 1 AND 1/2 TABLETS BY MOUTH TWICE DAILY Patient requested a 90 day refill. Pharmacy verified and updated accordingly. Patient was last seen in cardiology office: 07/27/24. Upcoming appointment scheduled: 01/24/25. Labs: Hemoglobin (g/dL) Date Value 11/30/2024 15.1 03/10/2017 15.3 Hematocrit (%) Date Value 11/30/2024 44.3 03/10/2017 47.4 WBC (k/uL) Date Value 11/30/2024 6.74 03/10/2017 6.49 Platelet Count (k/uL) Date Value 11/30/2024 153 03/10/2017 126 Creatinine Date Value Ref Range Status 11/30/2024 1.31 (H) 0.73 - 1.22 mg/dL Final 08/30/2024 1.24 (H) 0.73 - 1.22 mg/dL Final documented in this encounter [facility] 12-13-2024 Telephone encounter Note The following approved medication requests have been transmitted electronically. Requested Prescriptions Signed Prescriptions Disp Refills metoprolol tartrate, short acting, (LOPRESSOR) 25 mg tablet 270 tablet 3 Sig: TAKE 1 AND 1/2 TABLETS BY MOUTH TWICE DAILY Authorizing Provider: EMANUEL SCOTT Ordering User: SALINA ROBERTS APRN.CNP [facility] Work Phone: 12-13-2024 Telephone encounter Note Received request for refill of the following medications: Requested Prescriptions Pending Prescriptions Disp Refills metoprolol tartrate, short acting, (LOPRESSOR) 25 mg tablet [Pharmacy Med Name: METOPROLOL TARTRATE 25MG TABLETS] 270 tablet 3 Sig: TAKE 1 AND 1/2 TABLETS BY MOUTH TWICE DAILY Patient requested a 90 day refill. Pharmacy verified and updated accordingly. Patient was last seen in cardiology office: 07/27/24. Upcoming appointment scheduled: 01/24/25. Labs: Hemoglobin (g/dL) Date Value 11/30/2024 15.1 03/10/2017 15.3 Hematocrit (%) Date Value 11/30/2024 44.3 03/10/2017 47.4 WBC (k/uL) Date Value 11/30/2024 6.74 03/10/2017 6.49 Platelet Count (k/uL) Date Value 11/30/2024 153 03/10/2017 126 Creatinine Date Value Ref Range Status 11/30/2024 1.31 (H) 0.73 - 1.22 mg/dL Final 08/30/2024 1.24 (H) 0.73 - 1.22 mg/dL Final [facility] 11-25-2024 Note HNO ID: [id number] Author: WEI PABLO MD Service: ? Author Type: Physician Type: Progress Notes Filed: 11/25/2024 13:41 Note Text: [facility] CARDIOLOGY OUTPATIENT VISIT DATE November 25, 2024 OUTPATIENT VISIT TYPE ESTABLISHED PRIMARY CARE PHYSICIAN: Kathleen Kaufman [facility] [address] CHIEF COMPLAINT: Persistent afib HISTORY OF PRESENT ILLNESS: Mr. Rosen is a 69 year old male with NICM, obesity, persistent AF , afib ablation in 02/2024. Had recurrence in September 2024 and underwent DCCV into sinus rhythm. No new recurrence since last DCCV. No chest pain. He has Polycystic kidney s/p renal transplant and on anti-rejection meds which relatively precluded senior living AAD ( due to risk of [id number]). IMPRESSION: Persistent AF: S/p PVI in 02/2024 and DCCV in 09/2024. In sinus rhythm. Doing well. F/u in 1 year. Continue re-do afib ablation if further recurrence in the near future. PLAN AND RECOMMENDATIONS: Persistent AF: S/p PVI in 02/2024 and DCCV in 09/2024. In sinus rhythm. Doing well. F/u in 1 year. Continue re-do afib ablation if further recurrence in the near future. PHYSICAL EXAMINATION: There were no vitals taken [...] Last EKG Result Conclusion ECG COMPLETE Collected: 11/05/2024 12:54 PM (Final result) Impression: NORMAL SINUS RHYTHM LEFT ANTERIOR FASCICULAR BLOCK ABNORMAL ECG Confirmed by SANDRA DARBY M.D. ([id number]) on 11/07/2024 9:59:05 PM PAST CARDIAC HISTORY: See below PAST MEDICAL HISTORY Diagnosis Date Arthritis Atrial fibrillation (HCC) 09/10/2024 Coronary atherosclerosis of unspecified type of vessel, [place] or graft Mild 3-vessel Coronary artery disease Hypertension Polycystic kidney, unspecified type 09/08/1993 S/p cadaver renal transplant Umbilical hernia PAST SURGICAL HISTORY Procedure Laterality Date LAPAROSCOPY REPAIR INCISIONAL HERNIA REDUCIBLE 2001 umbilical PAST SURGICAL HISTORY OF 07/27/07 Colon Polypectomy- Tubular Adenoma PAST SURGICAL HISTORY OF 2006, 10/17 Placement of Left UE AVF x 2 TONSILLECTOMY PRIMARY/SECONDARY Tonsillectomy Social History Tobacco Use Smoking status: Never Smokeless tobacco: Never Vaping Use Vaping status: Never Used Substance Use Topics Alcohol use: [...] capsules by mouth two times a day. tacrolimus IR (PROGRAF) 1 mg capsule Take(1) capsule by mouth twice daily hydrOXYzine HCl (ATARAX) 25 mg tablet Take 25 mg by mouth once daily as needed. sulfamethoxazole-trimethoprim (BACTRIM) 400-80 mg per tablet Take 1 tablet by mouth every Friday, Friday, and Friday. predniSONE (DELTASONE) 5 mg tablet take 1 tablet by mouth once daily metoprolol tartrate, short acting, (LOPRESSOR) 50 mg tablet Take 1 tablet by mouth two times a day. rivaroxaban (XARELTO) 20 mg tablet Take 1 tablet by mouth daily with dinner. gabapentin (NEURONTIN) 300 mg capsule Take 300 mg by mouth twice daily. CALCIUM CARBONATE/VITAMIN D3 (CALCIUM + D ORAL) Take one(1) tablet two(2) times daily. [facility] 11-25-2024 History of Present illness Narrative Images from the original note were not included. [facility] SE[facility] OF [facility]IONAL CARDIOLOGY OUTPATIENT VISIT DATE November 25, 2024 OUTPATIENT VISIT TYPE ESTABLISHED PRIMARY CARE PHYSICIAN: [place] [address] CHIEF COMPLAINT: Persistent afib HISTORY OF PRESENT ILLNESS: Mr. Rosen is a 69 year old male with NICM, obesity, persistent AF , afib ablation in 02/2024. Had recurrence in September 2024 and underwent DCCV into sinus rhythm. No new recurrence since last DCCV. No chest pain. He has Polycystic kidney s/p renal transplant and on anti-rejection meds which relatively precluded senior living AAD ( due to risk of [id number]). IMPRESSION: Persistent AF: S/p PVI in 02/2024 and DCCV in 09/2024. In sinus rhythm. Doing well. F/u in 1 year. Continue re-do afib ablation if further recurrence in the near future. PLAN AND RECOMMENDATIONS: Persistent AF: S/p PVI in 02/2024 and DCCV in 09/2024. In sinus rhythm. Doing well. F/u in 1 year. Continue re-do afib ablation if further recurrence in the near future. PHYSICAL EXAMINATION: There were no vitals taken [...] Last EKG Result Conclusion ECG COMPLETE Collected: 11/05/2024 12:54 PM (Final result) Impression: NORMAL SINUS RHYTHM LEFT ANTERIOR FASCICULAR BLOCK ABNORMAL ECG Confirmed by SANDRA DARBY M.D. ([id number]) on 11/07/2024 9:59:05 PM PAST CARDIAC HISTORY: See below PAST MEDICAL HISTORY Diagnosis Date Arthritis Atrial fibrillation (HCC) 09/10/2024 Coronary atherosclerosis of unspecified type of vessel, [place] or graft Mild 3-vessel Coronary artery disease Hypertension Polycystic kidney, unspecified type 09/08/1993 S/p cadaver renal transplant Umbilical hernia PAST SURGICAL HISTORY Procedure Laterality Date LAPAROSCOPY REPAIR INCISIONAL HERNIA REDUCIBLE 2001 umbilical PAST SURGICAL HISTORY OF 07/27/07 Colon Polypectomy- Tubular Adenoma PAST SURGICAL HISTORY OF 2006, 10/17 Placement of Left UE AVF x 2 TONSILLECTOMY PRIMARY/SECONDARY <AGE 14 Tonsillectomy Social History Tobacco Use Smoking status: Never Smokeless tobacco: Never Vaping Use Vaping status: Never Used Substance Use Topics Alcohol use: [...] capsules by mouth two times a day. tacrolimus IR (PROGRAF) 1 mg capsule Take(1) capsule by mouth twice daily hydrOXYzine HCl (ATARAX) 25 mg tablet Take 25 mg by mouth once daily as needed. sulfamethoxazole-trimethoprim (BACTRIM) 400-80 mg per tablet Take 1 tablet by mouth every Friday, Friday, and Friday. predniSONE (DELTASONE) 5 mg tablet take 1 tablet by mouth once daily metoprolol tartrate, short acting, (LOPRESSOR) 50 mg tablet Take 1 tablet by mouth two times a day. rivaroxaban (XARELTO) 20 mg tablet Take 1 tablet by mouth daily with dinner. gabapentin (NEURONTIN) 300 mg capsule Take 300 mg by mouth twice daily. CALCIUM CARBONATE/VITAMIN D3 (CALCIUM + D ORAL) Take one(1) tablet two(2) times daily. documented in this encounter [facility] 11-15-2024 Telephone encounter Note The following approved medication requests have been transmitted electronically. Requested Prescriptions Signed Prescriptions Disp Refills mycophenolate mofetil (CELLCEPT) 250 mg capsule 360 capsule 3 Sig: Take 2 capsules by mouth two times a day. Authorizing Provider: USMAN LOWRY APRN.CNP [facility] 11-15-2024 Miscellaneous Notes The following approved medication requests have been transmitted electronically. Requested Prescriptions Signed Prescriptions Disp Refills mycophenolate mofetil (CELLCEPT) 250 mg capsule 360 capsule 3 Sig: Take 2 capsules by mouth two times a day. Authorizing Provider: USMAN LOWRY APRN.CNP [facility] 07/06/2024 Patient phones requesting refills as follows: Requested Prescriptions Pending Prescriptions Disp Refills mycophenolate mofetil (CELLCEPT) 250 mg capsule 360 capsule 3 Sig: Take 2 capsules by mouth two times a day. Please review and advise. Randy Arias documented in this encounter [facility] 11-12-2024 Telephone encounter Note [facility] 07/06/2024 Patient phones requesting refills as follows: Requested Prescriptions Pending Prescriptions Disp Refills mycophenolate mofetil (CELLCEPT) 250 mg capsule 360 capsule 3 Sig: Take 2 capsules by mouth two times a day. Please review and advise. Randy Arias [facility] 11-05-2024 History of Present illness Narrative Images from the original note were not included. [facility] [place] Department of Cardiovascular Medicine SECTION OF ELECTROPHYSIOLOGY AND PACING OUTPATIENT VISIT DATE November 05, 2024 OUTPATIENT VISIT TYPE ESTABLISHED PRIMARY CARE PHYSICIAN: [place] [address] CHIEF COMPLAINT: Follow Up HISTORY OF PRESENT ILLNESS: Mr. Rosen is a 69 year old male, patient of Dr. Pablo and Dr. Scott, who presents today for a cardiovascular medicine follow-up visit regarding atrial fibrillation s/p EPS:PVI 03/05. He was evaluated by myself in March of 2024 qt which time recurrence of atrial fibrillation was noted. He was placed on oral amiodarone. DCCV was completed early September, which was successful s/p 2nd shock at 360 Joules, to sinus rhythm. Since then, Mr. Rosen reports that from a cardiac perspective, he is feeling well. He does continue to have multiple joint aches and pains which has limited his ability to be active. PMH: Persistent atrial fibrillation s/p EPS:PVI, reported CAD, hypertension, dyslipidemia, HFmrEF (~45%), polycystic renal disease s/p renal transplant, PAST MEDICAL HISTORY Diagnosis Date Arthritis Atrial fibrillation (HCC) 09/10/2024 Coronary atherosclerosis of unspecified type of vessel, [place] or graft Mild 3-vessel Coronary artery disease Hypertension Polycystic kidney, unspecified type 09/08/1993 S/p cadaver renal transplant Umbilical hernia PAST SURGICAL HISTORY Procedure Laterality Date LAPAROSCOPY REPAIR INCISIONAL HERNIA REDUCIBLE 2001 umbilical PAST SURGICAL HISTORY OF 07/27/07 Colon Polypectomy- Tubular Adenoma PAST SURGICAL HISTORY OF 2006, 10/17 Placement of Left UE AVF x 2 TONSILLECTOMY PRIMARY/SECONDARY <AGE 14 Tonsillectomy SOCIAL HISTORY Social History Tobacco Use Smoking status: Never Smokeless tobacco: Never Vaping Use Vaping status: Never Used Substance Use Topics Alcohol use: No Comment: no alcohol > 2 yrs, no previous hx of abuse Drug use: No FAMILY HISTORY Problem Relation Age of Onset other (Polycystic Kidney [Other]) Mother other (Polycystic Kidney [Other]) Brother other (CVA [Other]) Father Emphysema Father ALLERGIES No Known Allergies MEDICATIONS: tacrolimus IR (PROGRAF) 1 mg capsule Take(1) capsule by mouth twice daily hydrOXYzine HCl (ATARAX) 25 mg tablet Take 25 mg by mouth once daily as needed. sulfamethoxazole-trimethoprim (BACTRIM) 400-80 mg per tablet Take 1 tablet by mouth every Friday, Friday, and Friday. predniSONE (DELTASONE) 5 mg tablet take 1 tablet by mouth once daily metoprolol tartrate, short acting, (LOPRESSOR) 50 mg tablet Take 1 tablet by mouth two times a day. rivaroxaban (XARELTO) 20 mg tablet Take 1 tablet by mouth daily with dinner. mycophenolate mofetil (CELLCEPT) 250 mg capsule Take 2 capsules by mouth two times a day. gabapentin (NEURONTIN) 300 mg capsule Take 300 mg by mouth twice daily. CALCIUM CARBONATE/VITAMIN D3 (CALCIUM + D ORAL) Take one(1) tablet two(2) times daily. REVIEW OF SYSTEMS: ROS is otherwise negative apart from what has been documented in HPI PHYSICAL EXAMINATION: BP 124/72 Pulse 71 Temp 36.6 C (97.8 F) (Temporal) Resp 22 Wt (!) 167.5 kg (369 lb 4.3 oz) SpO2 99% BMI 36.80 kg/m General: Well appearing, in no acute distress, speaking in complete sentences. Skin: No clubbing, no cyanosis. Neck: No jugular venous distention, no carotid bruits Lungs: Clear to auscultation bilaterally, no wheezing or rhonchi. Heart: Regular rate and rhythm Abdomen: Soft, nontender, bowel sounds present Extremities: No peripheral edema . Grade 2/4 distal pulses bilaterally. Neuro: Oriented to person, place and time, alert, cooperative. CARDIOVASCULAR MEDICINE TESTING: Labs: Latest Ref Rng 08/30/2024 WBC 3.70 - 11.00 k/uL 5.93 RBC 4.20 - 6.00 m/uL 4.67 Hemoglobin 13.0 - 17.0 g/dL 15.1 Hematocrit 39.0 - 51.0 % 43.8 MCV 80.0 - 100.0 fL 93.8 MCH 26.0 - 34.0 pg 32.3 MCHC 30.5 - 36.0 g/dL 34.5 RDW-CV 11.5 - 15.0 % 12.7 Platelet Count 150 - 400 k/uL 137 (L) Latest Ref Rng 08/30/2024 Glucose 74 - 99 mg/dL 110 (H) BUN 9 - 24 mg/dL 12 Creatinine 0.73 - 1.22 mg/dL 1.24 (H) Sodium 136 - 144 mmol/L 140 Potassium 3.7 - 5.1 mmol/L 4.3 Chloride 98 - 107 mmol/L 106 CO2 22 - 30 mmol/L 24 Anion Gap 8 - 15 mmol/L 10 eGFR >=60 mL/min/1.73m 64 Magnesium 1.7 - 2.3 mg/dL 1.5 (L) ECG 11/05/2024: NSR VR 68 ECHO 10/31/2023: - Technically difficult exam due to body [...] prior CC echocardiographic exam for comparison. I have personally reviewed the Electrocardiogram and Laboratory Testing. IMPRESSION/PLAN: Persistent atrial fibrillation s/p EPS:PVI (02/2024) followed by DCCV 09/2024 [id number]: 3 (Age, HTN, PVD)--Xarelto 20 mg every day with dinner ECG today demonstrates NSR VR 68 No known recurrence of atrial fibrillation since DCCV. Continue metoprolol and Xarelto as presently prescribed. Has follow up with Dr. Pablo in November, which he will keep. Repeat echocardiogram is scheduled for January along with follow up with Dr. Scott. CONTACT INFORMATION: Melisa Briceño APRN.CNP Cardiology [id number] [facility] [id number] Dept: [phone] Part of this note was copied from my previous note, all content has been individually and thoroughly reviewed, updated as necessary, patient assessed with updated information, and changes appropriately documented/adjusted. documented in this encounter [facility] 11-05-2024 Note HNO ID: [id number] Author: MELISA BRICEÑO APRN.CNP Service: ? Author Type: Nurse Practitioner Type: Progress Notes Filed: 11/05/2024 13:26 Note Text: [facility] [place] Department of Cardiovascular Medicine SECTION OF ELECTROPHYSIOLOGY AND PACING OUTPATIENT VISIT DATE November 05, 2024 OUTPATIENT VISIT TYPE ESTABLISHED PRIMARY CARE PHYSICIAN: Kathleen Sams [address] [place] [address] CHIEF COMPLAINT: Follow Up HISTORY OF PRESENT ILLNESS: Mr. Rosen is a 69 year old male, patient of Dr. Pablo and Dr. Scott, who presents today for a cardiovascular medicine follow-up visit regarding atrial fibrillation s/p EPS:PVI 03/05. He was evaluated by myself in March of 2024 qt which time recurrence of atrial fibrillation was noted. He was placed on oral amiodarone. DCCV was completed early September, which was successful s/p 2nd shock at 360 Joules, to sinus rhythm. Since then, Mr. Rosen reports that from a cardiac perspective, he is feeling well. He does continue to have multiple joint aches and pains which has limited his ability to be active. PMH: Persistent atrial fibrillation s/p EPS:PVI, reported CAD, hypertension, dyslipidemia, HFmrEF (~45%), polycystic renal disease s/p renal transplant, PAST MEDICAL HISTORY Diagnosis Date Arthritis Atrial fibrillation (HCC) 09/10/2024 Coronary atherosclerosis of unspecified type of vessel, [place] or graft Mild 3-vessel Coronary artery disease Hypertension Polycystic kidney, unspecified type 09/08/1993 S/p cadaver renal transplant Umbilical hernia PAST SURGICAL HISTORY Procedure Laterality Date LAPAROSCOPY REPAIR INCISIONAL HERNIA REDUCIBLE 2001 umbilical PAST SURGICAL HISTORY OF 07/27/07 Colon Polypectomy- Tubular Adenoma PAST SURGICAL HISTORY OF 10/17 Placement of Left UE AVF x 2 TONSILLECTOMY PRIMARY/SECONDARY Tonsillectomy SOCIAL HISTORY Social History Tobacco Use Smoking status: Never Smokeless tobacco: Never Vaping Use Vaping status: Never Used Substance Use Topics Alcohol use: No Comment: no alcohol > 2 yrs, no previous hx of abuse Drug use: No FAMILY HISTORY Problem Relation Age of Onset other (Polycystic Kidney [Other]) Mother other (Polycystic Kidney [Other]) Brother other (CVA [Other]) Father Emphysema Father ALLERGIES No Known Allergies MEDICATIONS: tacrolimus IR (PROGRAF) 1 mg capsule Take(1) capsule by mouth twice daily hydrOXYzine HCl (ATARAX) 25 mg tablet Take 25 mg by mouth once daily as needed. sulfamethoxazole-trimethoprim (BACTRIM) 400-80 mg per tablet Take 1 tablet by mouth every Friday, Friday, and Friday. predniSONE (DELTASONE) 5 mg tablet take 1 tablet by mouth once daily metoprolol tartrate, short acting, (LOPRESSOR) 50 mg tablet Take 1 tablet by mouth two times a day. rivaroxaban (XARELTO) 20 mg tablet Take 1 tablet by mouth daily with dinner. mycophenolate mofetil (CELLCEPT) 250 mg capsule Take 2 capsules by mouth two times a day. gabapentin (NEURONTIN) 300 mg capsule Take 300 mg by mouth twice daily. CALCIUM CARBONATE/VITAMIN D3 (CALCIUM + D ORAL) Take one(1) tablet two(2) times daily. REVIEW OF SYSTEMS: ROS is otherwise negative apart from what has been documented in HPI PHYSICAL EXAMINATION: BP 124/72 Pulse 71 Temp 36.6 ?C (97.8 ?F) (Temporal) Resp 22 Wt (!) 167.5 kg (369 lb 4.3 oz) SpO2 99% BMI 36.80 kg/m? General: Well appearing, in no acute distress, speaking in complete sentences. Skin: No clubbing, no cyanosis. Neck: No jugular venous distention, no carotid bruits Lungs: Clear to auscultation bilaterally, no wheezing or rhonchi. Heart: Regular rate and rhythm Abdomen: Soft, nontender, bowel sounds present Extremities: No peripheral edema . Grade 2/4 distal pulses bilaterally. Neuro: Oriented to person, place and time, alert, cooperative. CARDIOVASCULAR MEDICINE TESTING: Labs: Latest Ref Rng 08/30/2024 WBC 3.70 - 11.00 k/uL 5.93 RBC 4.20 - 6.00 m/uL 4.67 Hemoglobin 13.0 - 17.0 g/dL 15.1 Hematocrit 39.0 - 51.0 % 43.8 MCV 80.0 - 100.0 fL 93.8 MCH 26.0 - 34.0 pg 32.3 MCHC 30.5 - 36.0 g/dL 34.5 RDW-CV 11.5 - 15.0 % 12.7 Platelet Count 150 - 400 k/uL 137 (L) Latest Ref Rng 08/30/2024 Glucose 74 - 99 mg/dL 110 (H) BUN 9 - 24 mg/dL 12 Creatinine 0.73 - 1.22 mg/dL 1.24 (H) Sodium 136 - 144 mmol/L 140 Potassium 3.7 - 5.1 mmol/L 4.3 Chloride 98 - 107 mmol/L 106 CO2 22 - 30 mmol/L 24 Anion Gap 8 - 15 mmol/L 10 eGFR >=60 mL/min/1.73m? 64 Magnesium 1.7 - 2.3 mg/dL 1.5 (L) ECG 11/05/2024: NSR VR 68 ECHO 10/31/2023: - Technically difficult exam due to body habitus and suboptimal positioning. - Exam indication: Pre-op Cardioversion - The left ventricle is normal in size. Left ventricular systolic function is mildly decreased. EF = 45 ? 5% (visual est.) Definity contrast used for endocardial border d (more content not included)... [facility] 10-22-2024 Miscellaneous Notes The following approved medication requests have been transmitted electronically. Requested Prescriptions Signed Prescriptions Disp Refills tacrolimus IR (PROGRAF) 1 mg capsule 180 capsule 3 Sig: Take(1) capsule by mouth twice daily Authorizing Provider: USMAN LOWRY APRN.[employer] REPRESENTATIVE Patient phones requesting refills as follows: Requested Prescriptions Pending Prescriptions Disp Refills tacrolimus IR (PROGRAF) 1 mg capsule 180 capsule 3 Sig: Take(1) capsule by mouth twice daily Please review and advise. Ghada Bains documented in this encounter [facility] 10-22-2024 Telephone encounter Note The following approved medication requests have been transmitted electronically. Requested Prescriptions Signed Prescriptions Disp Refills tacrolimus IR (PROGRAF) 1 mg capsule 180 capsule 3 Sig: Take(1) capsule by mouth twice daily Authorizing Provider: USMAN LOWRY APRN.[employer] SAL[employer] REPRESENTATIVE [facility] 10-18-2024 Telephone encounter Note Patient phones requesting refills as follows: Requested Prescriptions Pending Prescriptions Disp Refills tacrolimus IR (PROGRAF) 1 mg capsule 180 capsule 3 Sig: Take(1) capsule by mouth twice daily Please review and advise. Ghada Bains [facility] 08-30-2024 Telephone encounter Note Called and relayed below message. Patient does take magnesium daily, says he cannot tolerate BID due to diarrhea. He says he runs low and Dr. Oneil told him he will always have this problem. [facility] 08-30-2024 Miscellaneous Notes Called and relayed below message. Patient does take magnesium daily, says he cannot tolerate BID due to diarrhea. He says he runs low and Dr. Oneil told him he will always have this problem. Please l patient. Magnesium is quite low. Recommend he take magnesium supplement-OTC 400 mg BID. Thank you! Melisa Briceño APRN.CNP documented in this encounter [facility] 08-30-2024 Telephone encounter Note Please l patient. Magnesium is quite low. Recommend he take magnesium supplement-OTC 400 mg BID. Thank you! Melisa Briceño APRN.CNP [facility] Work Phone: 08-27-2024 Telephone encounter Note Called and spoke to patient and scheduled his cardioversion at [facility] with Dr Pablo for September 10. Patient notified instructions and sent mychart. Follow up scheduled. [facility] 08-27-2024 Telephone encounter Note ----- Message from MINDY Coelho sent at 08/27/2024 8:12 AM EST ----- 09/07 ----- Message ----- From: Karlene Nguyen Sent: 08/27/2024 7:04 AM EST To: MINDY May Can you please schedule his dcc w Dr Pablo next available ----- Message ----- From: Melisa Briceño APRN.[employer] SAL[employer] REPRESENTATIVE Sent: 08/26/2024 4:12 PM EST To: Karlene Mondragon I ordered labs now. I had messaged Dr. Pablo regarding whether or not he wanted to proceed, which he stated he did. So just need to schedule with Dr. Pablo, please. [place] ----- Message ----- From: Karlene Nguyen Sent: 08/26/2024 3:51 PM EST To: Melisa Briceño APRN.[employer] SAL[employer] REPRESENTATIVE There was a CC chart message from Dr Scott on this dmitry, And I can't find the message that I thought was from you regarding his labs? Maybe Can you please help [facility] 08-27-2024 Miscellaneous Notes Called and spoke to patient and scheduled his cardioversion at [facility] with Dr Pablo for September 10. Patient notified instructions and sent mychart. Follow up scheduled. ----- Message from MINDY Coelho sent at 08/27/2024 8:12 AM EST ----- 09/07 ----- Message ----- From: Karlene Nguyen Sent: 08/27/2024 7:04 AM EST To: MINDY May Can you please schedule his dcc w Dr Pablo next available ----- Message ----- From: Melisa Briceño APRN.[employer] SAL[employer] REPRESENTATIVE Sent: 08/26/2024 4:12 PM EST To: Karlene Mondragon I ordered labs now. I had messaged Dr. Pablo regarding whether or not he wanted to proceed, which he stated he did. So just need to schedule with Dr. Pablo, please. [place] ----- Message ----- From: Karlene Nguyen Sent: 08/26/2024 3:51 PM EST To: Melisa Briceño APRN.[employer] SAL[employer] REPRESENTATIVE There was a CC chart message from Dr Scott on this dmitry, And I can't find the message that I thought was from you regarding his labs? Maybe Can you please help documented in this encounter [facility] 08-27-2024 Telephone encounter Note Waiting for patient to call us back to schedule his cardioversion with Dr Pablo. [facility] 08-27-2024 Miscellaneous Notes Waiting for patient to call us back to schedule his cardioversion with Dr Pablo. documented in this encounter [facility] 08-27-2024 Telephone encounter Note Called and left message for patient to schedule his dcc with Dr Pablo for September 07. Gave patient my direct number. [facility] 08-27-2024 Telephone encounter Note ----- Message from MINDY Coelho sent at 08/27/2024 8:12 AM EST ----- 09/07 ----- Message ----- From: Karlene Nguyen Sent: 08/27/2024 7:04 AM EST To: MINDY May Can you please schedule his dcc w Dr Pablo next available ----- Message ----- From: Melisa Briceño APRN.[employer] SALES REPRESENTATIVE Sent: 08/26/2024 4:12 PM EST To: Karlene Mondragon I ordered labs now. I had messaged Dr. Pablo regarding whether or not he wanted to proceed, which he stated he did. So just need to schedule with Dr. Pablo, please. [place] ----- Message ----- From: Karlene Nguyen Sent: 08/26/2024 3:51 PM EST To: Melisa Briceño APRN.[employer] SALES REPRESENTATIVE There was a CC chart message from Dr Scott on this dmitry, And I can't find the message that I thought was from you regarding his labs? Maybe Can you please help [facility] 08-27-2024 Miscellaneous Notes Called and left message for patient to schedule his dcc with Dr Pablo for September 07. Gave patient my direct number. ----- Message from MINDY Coelho sent at 08/27/2024 8:12 AM EST ----- 09/07 ----- Message ----- From: Karlene Nguyen Sent: 08/27/2024 7:04 AM EST To: MINDY May Can you please schedule his dcc w Dr Pablo next available ----- Message ----- From: Melisa Briceño APRN.[employer] SALES REPRESENTATIVE Sent: 08/26/2024 4:12 PM EST To: Karlene Mondragon I ordered labs now. I had messaged Dr. Pablo regarding whether or not he wanted to proceed, which he stated he did. So just need to schedule with Dr. Pablo, please. [place] ----- Message ----- From: Karlene Nguyen Sent: 08/26/2024 3:51 PM EST To: Melisa Briceño APRN.[employer] SALES REPRESENTATIVE There was a CC chart message from Dr Scott on this dmitry, And I can't find the message that I thought was from you regarding his labs? Maybe Can you please help documented in this encounter [facility] 08-25-2024 Telephone encounter Note Called and scheduled with ep physician. [facility] 08-25-2024 Miscellaneous Notes Called and scheduled with ep physician. documented in this encounter [facility] 07-27-2024 History of Present illness Narrative Images from the original note were not included. [facility] SECTION OF REGIONAL CARDIOLOGY OUTPATIENT VISIT DATE Jul 27, 2024 OUTPATIENT VISIT TYPE Established PRIMARY CARE PHYSICIAN: Kathleen Sams [address] [place] [id number] REFERRING PHYSICIAN: Usman Lowry [address] [facility] [id number] C/C: Follow-up for atrial fibrillation Last and initial visit with il March 2024 HISTORY OF PRESENT ILLNESS: Mr. Rosen is a 69 year old male, seen in clinic today for follow-up for atrial fibrillation CV history reviewed, summarized and updated: Initial visit with il in Sep 2023-noted to be in Afib of unknown duration, first diagnosis. Status post DCCV November 05, 2023. Recurrence of A-Fib post DCCV Echocardiogram October 31, 2023-LVEF mildly decreased at 45%, RV normal size and function, dilated aorta at 4.9 cm. Was unable to complete stress SPECT due to A-Fib with RVR, had rest images only. S/p PVI/ablation with Dr. Pablo February 2024, with recurrence of atrial fibrillation post ablation Since prior visit with il, Was evaluated with EP EMILY Briceño. Was noted to be in persistent atrial fibrillation, after discussion with customer assistance representative, was started on amiodarone. Plan was for repeat cardioversion while on amiodarone. However, this did not happen. Patient is unclear as to why this did not happen, and I do not see any follow-up notes. It appears that his TSH was elevated while on amiodarone. Subsequently amiodarone was discontinued, it was prescribed for 90 days. Did not pursue stress test due to difficulty in hand positioning Denies any bleeding complications. He has significant back pain that limits his ability to lay flat, denies any symptoms from atrial fibrillation at this time. Otherwise he denies any recurrent chest pain, shortness of breath, leg swelling and symptoms consistent with orthopnea and/or PND. 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 Never smoker. REVIEW OF SYSTEMS: 10 systems reviewed and are negative with the exception of pertinent positives described in HPI PHYSICAL EXAMINATION: BP 126/74 Pulse 78 Wt (!) 171.6 kg (378 lb 5 oz) BMI 37.70 kg/m General: No acute distress, appears comfortable [...] Normal mood and affect CARDIOVASCULAR MEDICINE TESTING: Reviewed recent EKG from June 2024, atrial fibrillation, controlled ventricular rate PAST MEDICAL HISTORY Diagnosis Date Coronary atherosclerosis of unspecified type of vessel, [place] or graft Mild 3-vessel Coronary artery disease [...] Never Smokeless tobacco: Never Vaping Use Vaping status: Never Used Substance Use Topics Alcohol use: No Comment: no alcohol > 2 yrs, no previous hx of abuse Drug use: No FAMILY HISTORY Problem Relation Age of Onset other (Polycystic Kidney [Other]) Mother other (Polycystic Kidney [Other]) Brother other (CVA [Other]) Father Emphysema Father ALLERGIES: ALLERGIES No Known Allergies CURRENT MEDICATIONS: hydrOXYzine HCl (ATARAX) 25 mg tablet Take 25 mg by mouth once daily as needed. sulfamethoxazole-trimethoprim (BACTRIM) 400-80 mg per tablet Take 1 tablet by mouth every Friday, Friday, and Friday. predniSONE (DELTASONE) 5 mg tablet take 1 tablet by mouth once daily metoprolol tartrate, short acting, (LOPRESSOR) 50 mg tablet Take 1 tablet by mouth two times a day. rivaroxaban (XARELTO) 20 mg tablet Take 1 tablet by mouth daily with dinner. mycophenolate mofetil (CELLCEPT) 250 mg capsule Take 2 capsules by mouth two times a day. tacrolimus IR (PROGRAF) 1 mg capsule Take(1) capsule by mouth twice daily gabapentin (NEURONTIN) 300 mg capsule Take 300 mg by mouth twice daily. CALCIUM CARBONATE/VITAMIN D3 (CALCIUM + D ORAL) Take one(1) tablet two(2) times daily. amiodarone (PACERONE) 200 mg tablet Take 1 tablet by mouth two times a day for 7 days, THEN 1 tablet once daily. (Patient not taking: Reported on 07/27/2024) IMPRESSION/PLAN AND RECOMMENDATIONS: Recurrent persistent atrial fibrillation, was diagnosed in Jun 2023. Status post DCCV November 05, 2023, with recurrence of atrial fibrillation post DCCV. S/p PVI/ablation 03/05/2024, with subsequent recurrence of atrial fibrillation. At last follow-up with the EP CONVENTION SERVICES MANAGER, was started on amiodarone with plan for DCCV on amiodarone. However, this did not happen and I am unsure why. He is currently not on amiodarone, this was prescribed only for 90 days. TSH was elevated while on amiodarone. Overall no specific symptoms from A-fib, but he notices the pulse irregularity. Echocardiogram did show mild decline in LVEF at around 45% while in atrial fibrillation, likely nonischemic cardiomyopathy, but unable to rule out any obstructive coronary artery disease at this point given he cannot tolerate follow-up for a stress test or a coronary CTA, also avoiding coronary CTA due to underlying CKD of transplanted kidney. [id number] score of 2, primarily with history of hypertension and age. Intermediate risk of thromboembolism. Currently tolerating anticoagulation without any bleeding complications. Thoracic aortic aneurysm, maximum dimension mention that 4.9 cm by echocardiogram. However, echocardiogram reviewed, image quality is too poor for accurate quantitation of the aorta, and cannot tolerate MRA/CTA due to reasons described above. Continue metoprolol to tartrate to 50 mg twice daily Continue Xarelto 20 mg daily Will reach out to EP CONVENTION SERVICES MANAGER and arrange for follow-up with EP, possible plan to control atrial fibrillation with rate control and anticoagulation at this time F/u with me in 6 mo with repeat ECHO prior to f/u. Emanuel Scott MD documented in this encounter [facility] 07-27-2024 Note HNO ID: [id number] Author: EMANUEL SCOTT MD Service: ? Author Type: Physician Type: Progress Notes Filed: 07/27/2024 13:48 Note Text: [facility] SECTION OF REGIONAL CARDIOLOGY OUTPATIENT VISIT DATE Jul 27, 2024 OUTPATIENT VISIT TYPE Established PRIMARY CARE PHYSICIAN: Kathleen Sams [address] [place], [place] [address] [address] REFERRING PHYSICIAN: Usman Lowry [address] [facility] [id number] C/C: Follow-up for atrial fibrillation Last and initial visit with me March 2024 HISTORY OF PRESENT ILLNESS: Mr. Rosen is a 69 year old male, seen in clinic today for follow-up for atrial fibrillation CV history reviewed, summarized and updated: Initial visit with me in Sep 2023-noted to be in Afib of unknown duration, first diagnosis. Status post DCCV November 05, 2023. Recurrence of A-Fib post DCCV Echocardiogram October 31, 2023-LVEF mildly decreased at 45%, RV normal size and function, dilated aorta at 4.9 cm. Was unable to complete stress SPECT due to A-Fib with RVR, had rest images only. S/p PVI/ablation with Dr. Pablo February 2024, with recurrence of atrial fibrillation post ablation Since prior visit with me, Was evaluated with EP EMILY Briceño. Was noted to be in persistent atrial fibrillation, after discussion with customer assistance representative, was started on amiodarone. Plan was for repeat cardioversion while on amiodarone. However, this did not happen. Patient is unclear as to why this did not happen, and I do not see any follow-up notes. It appears that his TSH was elevated while on amiodarone. Subsequently amiodarone was discontinued, it was prescribed for 90 days. Did not pursue stress test due to difficulty in hand positioning Denies any bleeding complications. He has significant back pain that limits his ability to lay flat, denies any symptoms from atrial fibrillation at this time. Otherwise he denies any recurrent chest pain, shortness of breath, leg swelling and symptoms consistent with orthopnea and/or PND. 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 Never smoker. REVIEW OF SYSTEMS: 10 systems reviewed and are negative with the exception of pertinent positives described in HPI PHYSICAL EXAMINATION: BP 126/74 Pulse 78 Wt (!) 171.6 kg (378 lb 5 oz) BMI 37.70 kg/m? General: No acute distress, appears comfortable [...] Normal mood and affect CARDIOVASCULAR MEDICINE TESTING: Reviewed recent EKG from June 2024, atrial fibrillation, controlled ventricular rate PAST MEDICAL HISTORY Diagnosis Date Coronary atherosclerosis of unspecified type of vessel, [place] or graft Mild 3-vessel Coronary artery disease [...] Never Smokeless tobacco: Never Vaping Use Vaping status: Never Used Substance Use Topics Alcohol use: No Comment: no alcohol > 2 yrs, no previous hx of abuse Drug use: No FAMILY HISTORY Problem Relation Age of Onset other (Polycystic Kidney [Other]) Mother other (Polycystic Kidney [Other]) Brother other (CVA [Other]) Father Emphysema Father ALLERGIES: ALLERGIES No Known Allergies CURRENT MEDICATIONS: hydrOXYzine HCl (ATARAX) 25 mg tablet Take 25 mg by mouth once daily as needed. sulfamethoxazole-trimethoprim (BACTRIM) 400-80 mg per tablet Take 1 tablet by mouth every Friday, Friday, and Friday. predniSONE (DELTASONE) 5 mg tablet take 1 tablet by mouth once daily metoprolol tartrate, short acting, (LOPRESSOR) 50 mg tablet Take 1 tablet by mouth two times a day. rivaroxaban (XARELTO) 20 mg tablet Take 1 tablet by mouth daily with dinner. mycophenolate mofetil (CELLCEPT) 250 mg capsule Take 2 capsules by mouth two times a day. tacrolimus IR (PROGRAF) 1 mg capsule Take(1) capsule by mouth twice daily gabapentin (NEURONTIN) 300 mg capsule Take 300 mg by mouth twice daily. CALCIUM CARBONATE/VITAMIN D3 (CALCIUM + D ORAL) Take one(1) tablet two(2) times daily. amiodarone (PA (more content not included)... [facility] 07-06-2024 Note HNO ID: [id number] Author: NHI ONEIL MD Service: ? Author Type: Physician Type: Progress Notes Filed: 07/06/2024 17:08 Note Text: Department of Kidney Medicine Medical Specialties [place] [facility] July 06, 2024 Portions of this note were copied forward from the last encounter in this office to ensure historical accuracy. Changes were made to accurately reflect updated history, physical exam, and medical decision making. 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 Had ventral hernia repair in February 2013. Baseline scr 1.2-1.4 Brother had renal tx here in Aug ankle fusion surgery on 10/22/19--required reoperation to remove hardware No interval complaints Had AF ablation- February 2024 Persistent low mag- says he takes supplement but 'doesn't make a difference' BP 117/75 (BP Site: Left Arm, BP Position: Sitting, BP Cuff Size: Large Adult) Pulse 76 Ht 213.4 cm (7') Wt (!) 171.7 kg (378 lb 8.5 oz) BMI 37.72 kg/m? Looks well CV irreg- rate controlled ABD soft, NT Lungs cTA Trace edema simone ankles Kidney function: Recent Labs 07/06/24 1329 UGLUC Negative UBILI Negative UKET Negative UHB Negative UPH 6.0 UPROT Negative eGFR-All Other Races Date Value 06/11/2016 59 . 03/02/2016 56 11/15/2013 >60 . 05/31/2013 58 . 11/23/2012 57 . Estimated Glomerular Filtration Rate (mL/min/1.73m?) Date Value 06/01/2024 55 04/01/2024 52 03/02/2024 49 12/02/2023 57 11/03/2023 62 Creatinine Date Value Ref Range Status 06/01/2024 1.41 (H) 0.73 - 1.22 mg/dL Final 04/01/2024 1.48 (H) 0.73 - 1.22 mg/dL Final 03/02/2024 1.55 (H) 0.73 - 1.22 mg/dL Final 12/02/2023 1.36 (H) 0.73 - 1.22 mg/dL Final 11/03/2023 1.28 (H) 0.73 - 1.22 mg/dL Final No results found for: CYSTATINC No results found for: EGFRAD BUN Date Value 06/01/2024 15 mg/dL 04/01/2024 14 mg/dL 03/02/2024 13 mg/dL 12/08/2017 14 09/13/2017 20 05/31/2017 18 No results found for: AMYLASE , LIPASE Protein/Creat Ratio (no units) Date Value 12/25/2015 0.0 12/28/2014 0.0 11/15/2013 0.0 05/31/2013 0.0 11/23/2012 0.0 06/01/2012 0.1 Immunosuppression: Tacrolimus/FK506 (ng/mL) Date Value 06/01/2024 6.6 04/01/2024 6.1 03/02/2024 6.0 12/02/2023 6.1 09/10/2021 10.1 06/05/2021 9.7 03/06/2021 13.6 12/02/2020 9.6 No results found for: EVERO Sirolimus/Rapamune (ng/mL) Date Value 10/05/2009 <1.0 No results found for: CSA Hematology: WBC (k/uL) Date Value 06/01/2024 6.65 04/01/2024 6.77 03/02/2024 6.19 03/10/2017 6.49 06/11/2016 5.09 11/15/2013 5.30 Hemoglobin (g/dL) Date Value 06/01/2024 15.2 04/01/2024 14.6 03/02/2024 15.1 03/10/2017 15.3 06/11/2016 14.5 11/15/2013 14.4 Hematocrit (%) Date Value 06/01/2024 43.5 04/01/2024 42.8 03/02/2024 44.2 03/10/2017 47.4 06/11/2016 42.1 11/15/2013 42.2 Platelet Count (k/uL) Date Value 06/01/2024 137 04/01/2024 149 03/02/2024 143 03/10/2017 126 06/11/2016 102 11/15/2013 118 Calcium (no units) Date Value 12/08/2017 9.6 09/13/2017 9.6 05/31/2017 9.5 Calcium, Total (mg/dL) Date Value 06/01/2024 9.7 04/01/2024 10.1 03/02/2024 10.6 Phosphorus Date Value 06/01/2024 2.7 mg/dL 03/02/2024 3.0 mg/dL 12/02/2023 2.8 mg/dL 12/08/2017 2.9 09/13/2017 2.9 05/31/2017 2.6 PTH, Intact Date Value 06/05/2015 81 12/07/2014 87 05/31/2013 80 pg/mL Bone and mineral metabolism: Vitamin D 25 Hydroxy Date Value 12/07/2014 47.7 01/24/2014 45 11/15/2013 46.2 ng/mL Calcium (no units) Date Value 12/08/2017 9.6 09/13/2017 9.6 05/31/2017 9.5 Calcium, Total (mg/dL) Date Value 06/01/2024 9.7 04/01/2024 10.1 03/02/2024 10.6 Magnesium Date Value 06/01/2024 1.6 mg/dL 03/02/2024 1.6 mg/dL 12/02/2023 1.6 mg/dL 09/03/2016 1.5 03/02/2016 1.6 12/16/2015 1.5 Phosphorus Date Value 06/01/2024 2.7 mg/dL 03/02/2024 3.0 mg/dL 12/02/2023 2.8 mg/dL 12/08/2017 2.9 09/13/2017 2.9 05/31/2017 2.6 PTH, Intact Date Value 06/05/2015 81 12/07/2014 87 05/31/2013 80 pg/mL Electrolytes and Acid-base: Sodium Date Value 06/01/2024 142 mmol/L 04/01/2024 139 mmol/L 03/02/2024 142 mmol/L 12/08/2017 139 09/13/2017 140 05/31/2017 141 Potassium Date Value 06/01/2024 4.3 mmol/L 04/01/2024 4.3 mmol/L 03/02/2024 4.3 mmol/L 12/08/2017 3.8 09/13/2017 4 05/31/2017 4.1 Chloride Date Value 06/01/2024 106 mmol/L 04/01/2024 106 mmol/L 03/02/2024 106 mmol/L 12/08/2017 107 09/13/2017 107 05/31/2017 107 CO2 Date Value 06/01/2024 26 mmol/L 04/01/2024 25 mmol/L 03/02/2024 28 mmol/L 12/08/2017 23 09/13/2017 24 09 (more content not included)... [facility] 07-06-2024 History of Present illness Narrative Department of Kidney Medicine Medical Specialties [place] [facility] July 06, 2024 Portions of this note were copied forward from the last encounter in this office to ensure historical accuracy. Changes were made to accurately reflect updated history, physical exam, and medical decision making. 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 Had ventral hernia repair in February 2013. Baseline scr 1.2-1.4 Brother had renal tx here in Aug ankle fusion surgery on 10/22/19--required reoperation to remove hardware No interval complaints Had AF ablation- February 2024 Persistent low mag- says he takes supplement but 'doesn't make a difference' BP 117/75 (BP Site: Left Arm, BP Position: Sitting, BP Cuff Size: Large Adult) Pulse 76 Ht 213.4 cm (7') Wt (!) 171.7 kg (378 lb 8.5 oz) BMI 37.72 kg/m Looks well CV irreg- rate controlled ABD soft, NT Lungs cTA Trace edema simone ankles Kidney function: Recent Labs 07/06/24 1329 UGLUC Negative UBILI Negative UKET Negative UHB Negative UPH 6.0 UPROT Negative eGFR-All Other Races Date Value 06/11/2016 59 . 03/02/2016 56 11/15/2013 >60 . 05/31/2013 58 . 11/23/2012 57 . Estimated Glomerular Filtration Rate (mL/min/1.73m ) Date Value 06/01/2024 55 04/01/2024 52 03/02/2024 49 12/02/2023 57 11/03/2023 62 Creatinine Date Value Ref Range Status 06/01/2024 1.41 (H) 0.73 - 1.22 mg/dL Final 04/01/2024 1.48 (H) 0.73 - 1.22 mg/dL Final 03/02/2024 1.55 (H) 0.73 - 1.22 mg/dL Final 12/02/2023 1.36 (H) 0.73 - 1.22 mg/dL Final 11/03/2023 1.28 (H) 0.73 - 1.22 mg/dL Final No results found for: CYSTATINC No results found for: EGFRAD BUN Date Value 06/01/2024 15 mg/dL 04/01/2024 14 mg/dL 03/02/2024 13 mg/dL 12/08/2017 14 09/13/2017 20 05/31/2017 18 No results found for: AMYLASE , LIPASE Protein/Creat Ratio (no units) Date Value 12/25/2015 0.0 12/28/2014 0.0 11/15/2013 0.0 05/31/2013 0.0 11/23/2012 0.0 06/01/2012 0.1 Immunosuppression: Tacrolimus/FK506 (ng/mL) Date Value 06/01/2024 6.6 04/01/2024 6.1 03/02/2024 6.0 12/02/2023 6.1 09/10/2021 10.1 06/05/2021 9.7 03/06/2021 13.6 12/02/2020 9.6 No results found for: EVERO Sirolimus/Rapamune (ng/mL) Date Value 10/05/2009 <1.0 No results found for: CSA Hematology: WBC (k/uL) Date Value 06/01/2024 6.65 04/01/2024 6.77 03/02/2024 6.19 03/10/2017 6.49 06/11/2016 5.09 11/15/2013 5.30 Hemoglobin (g/dL) Date Value 06/01/2024 15.2 04/01/2024 14.6 03/02/2024 15.1 03/10/2017 15.3 06/11/2016 14.5 11/15/2013 14.4 Hematocrit (%) Date Value 06/01/2024 43.5 04/01/2024 42.8 03/02/2024 44.2 03/10/2017 47.4 06/11/2016 42.1 11/15/2013 42.2 Platelet Count (k/uL) Date Value 06/01/2024 137 04/01/2024 149 03/02/2024 143 03/10/2017 126 06/11/2016 102 11/15/2013 118 Calcium (no units) Date Value 12/08/2017 9.6 09/13/2017 9.6 05/31/2017 9.5 Calcium, Total (mg/dL) Date Value 06/01/2024 9.7 04/01/2024 10.1 03/02/2024 10.6 Phosphorus Date Value 06/01/2024 2.7 mg/dL 03/02/2024 3.0 mg/dL 12/02/2023 2.8 mg/dL 12/08/2017 2.9 09/13/2017 2.9 05/31/2017 2.6 PTH, Intact Date Value 06/05/2015 81 12/07/2014 87 05/31/2013 80 pg/mL Bone and mineral metabolism: Vitamin D 25 Hydroxy Date Value 12/07/2014 47.7 01/24/2014 45 11/15/2013 46.2 ng/mL Calcium (no units) Date Value 12/08/2017 9.6 09/13/2017 9.6 05/31/2017 9.5 Calcium, Total (mg/dL) Date Value 06/01/2024 9.7 04/01/2024 10.1 03/02/2024 10.6 Magnesium Date Value 06/01/2024 1.6 mg/dL 03/02/2024 1.6 mg/dL 12/02/2023 1.6 mg/dL 09/03/2016 1.5 03/02/2016 1.6 12/16/2015 1.5 Phosphorus Date Value 06/01/2024 2.7 mg/dL 03/02/2024 3.0 mg/dL 12/02/2023 2.8 mg/dL 12/08/2017 2.9 09/13/2017 2.9 05/31/2017 2.6 PTH, Intact Date Value 06/05/2015 81 12/07/2014 87 05/31/2013 80 pg/mL Electrolytes and Acid-base: Sodium Date Value 06/01/2024 142 mmol/L 04/01/2024 139 mmol/L 03/02/2024 142 mmol/L 12/08/2017 139 09/13/2017 140 05/31/2017 141 Potassium Date Value 06/01/2024 4.3 mmol/L 04/01/2024 4.3 mmol/L 03/02/2024 4.3 mmol/L 12/08/2017 3.8 09/13/2017 4 05/31/2017 4.1 Chloride Date Value 06/01/2024 106 mmol/L 04/01/2024 106 mmol/L 03/02/2024 106 mmol/L 12/08/2017 107 09/13/2017 107 05/31/2017 107 CO2 Date Value 06/01/2024 26 mmol/L 04/01/2024 25 mmol/L 03/02/2024 28 mmol/L 12/08/2017 23 09/13/2017 24 05/31/2017 26 Viral screening: BK Virus DNA Quant (copies/mL) Date Value 06/05/2021 Negative for BK virus DNA by PCR 06/05/2021 Test reordered by [facility]. 03/06/2021 Negative for BK virus DNA by PCR CMV DNA (IU/mL) (IU/mL) Date Value 09/03/2016 CMV DNA not detected by PCR. 03/02/2016 CMV DNA not detected by PCR. 12/16/2015 CMV DNA not detected by PCR. No results found for: EBVDNA Impression: Z23 Need for influenza vaccination (primary encounter diagnosis) Z29.89 Need for pneumocystis prophylaxis Z94.0 Kidney replaced by transplant I48.19 Persistent atrial fibrillation (HCC) I13.11, N18.6 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) Stable GFR -TAC, MMF, P based regimen- -TAC at target levels (range 4-7) Well controlled BP Persistent AF -remains on amio and BB -persistent low Mag- on suppls (effect of tacro) No changes to Immunosuppression regimen Continue regular every 3 mo labs RTC 1 yr Nhi Oneil MD documented in this encounter [facility] 07-06-2024 Note Patient Outreach (ZENOBIA DMMN) ------ LINK ROSEN ([id number]) 1955 M Date Time Provider Department 07/06/24 NHI ONEIL During your visit today, we recorded the following information about you: Allergies As of Date: 07/06/2024 (No Known Allergies) Date Reviewed: 07/06/2024 Reviewed by: Guerline Gentile [facility] - Fully Assessed Visit Diagnosis:Screening for genitourinary condition [Z13.89] Order(s):URINALYSIS, REFLEX MICROSCOPIC [[id number]] Order #: [id number]. #:[id number] Prescriptions as of 07/09/2024 - hydrOXYzine HCl (ATARAX) 25 mg tablet Take 25 mg by mouth once daily as needed. - sulfamethoxazole-trimethoprim (BACTRIM) 400-80 mg per tablet Take 1 tablet by mouth every Friday, Friday, and Friday. - predniSONE (DELTASONE) 5 mg tablet take 1 tablet by mouth once daily - metoprolol tartrate, short acting, (LOPRESSOR) 50 mg tablet Take 1 tablet by mouth two times a day. - rivaroxaban (XARELTO) 20 mg tablet Take 1 tablet by mouth daily with dinner. - amiodarone (PACERONE) 200 mg tablet Take 1 tablet by mouth two times a day for 7 days, THEN 1 tablet once daily. - mycophenolate mofetil (CELLCEPT) 250 mg capsule Take 2 capsules by mouth two times a day. - tacrolimus IR (PROGRAF) 1 mg capsule Take(1) capsule by mouth twice daily - gabapentin (NEURONTIN) 300 mg capsule Take 300 mg by mouth twice daily. - CALCIUM CARBONATE/VITAMIN D3 (CALCIUM + D ORAL) Take one(1) tablet two(2) times daily. Meds Comments as of 02/22/2010: Patient states he doesn't always take Pepcid. 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 Briana Castillo MA [facility] 06-25-2024 Nurse Note EKG done as ordered, transmitted to [facility]. Briana Castillo MA documented in this encounter [facility] 06-18-2024 Telephone encounter Note The following approved medication requests have been transmitted electronically. Requested Prescriptions Signed Prescriptions Disp Refills predniSONE (DELTASONE) 5 mg tablet 90 tablet 3 Sig: take 1 tablet by mouth once daily Authorizing Provider: USMAN LOWYR sulfamethoxazole-trimethoprim (BACTRIM) 400-80 mg per tablet 90 tablet 3 Sig: take 1 tablet by mouth once daily Authorizing Provider: USMAN LOWRY APRN.SEAN [facility] 06-18-2024 Miscellaneous Notes The following approved medication requests have been transmitted electronically. Requested Prescriptions Signed Prescriptions Disp Refills predniSONE (DELTASONE) 5 mg tablet 90 tablet 3 Sig: take 1 tablet by mouth once daily Authorizing Provider: USMAN LOWRY sulfamethoxazole-trimethoprim (BACTRIM) 400-80 mg per tablet 90 tablet 3 Sig: take 1 tablet by mouth once daily Authorizing Provider: USMAN LOWRY APRN.CNP [facility] 06/30/2023 Patient phones requesting refills as follows: Requested Prescriptions Pending Prescriptions Disp Refills predniSONE (DELTASONE) 5 mg tablet [Pharmacy Med Name: PREDNISONE 5MG TABLETS] 90 tablet 3 Sig: take 1 tablet by mouth once daily sulfamethoxazole-trimethoprim (BACTRIM) 400-80 mg per tablet [Pharmacy Med Name: SULFAMETH/TRIMETH 400-80MG TAB] 90 tablet 3 Sig: take 1 tablet by mouth once daily Please review and advise. Randy Arias documented in this encounter [facility] 06-17-2024 Telephone encounter [facility] 06/30/2023 Patient phones requesting refills as follows: Requested Prescriptions Pending Prescriptions Disp Refills predniSONE (DELTASONE) 5 mg tablet [Pharmacy Med Name: PREDNISONE 5MG TABLETS] 90 tablet 3 Sig: take 1 tablet by mouth once daily sulfamethoxazole-trimethoprim (BACTRIM) 400-80 mg per tablet [Pharmacy Med Name: SULFAMETH/TRIMETH 400-80MG TAB] 90 tablet 3 Sig: take 1 tablet by mouth once daily Please review and advise. Randy Arias [facility] 05-14-2024 Telephone encounter Note Received request for refill of the following medications: Requested Prescriptions Pending Prescriptions Disp Refills metoprolol tartrate, short acting, (LOPRESSOR) 50 mg tablet 180 tablet 3 Sig: Take 1 tablet by mouth two times a day. Patient requested a 90 day refill. Pharmacy verified and updated accordingly. Patient was last seen in cardiology office: 03/18/24. Upcoming appointment scheduled: 07/27/24. Labs: Hemoglobin (g/dL) Date Value 04/01/2024 14.6 03/10/2017 15.3 Hematocrit (%) Date Value 04/01/2024 42.8 03/10/2017 47.4 WBC (k/uL) Date Value 04/01/2024 6.77 03/10/2017 6.49 Platelet Count (k/uL) Date Value 04/01/2024 149 03/10/2017 126 Creatinine Date Value Ref Range Status 04/01/2024 1.48 (H) 0.73 - 1.22 mg/dL Final 03/02/2024 1.55 (H) 0.73 - 1.22 mg/dL Final [facility] 05-14-2024 Miscellaneous Notes Received request for refill of the following medications: Requested Prescriptions Pending Prescriptions Disp Refills metoprolol tartrate, short acting, (LOPRESSOR) 50 mg tablet 180 tablet 3 Sig: Take 1 tablet by mouth two times a day. Patient requested a 90 day refill. Pharmacy verified and updated accordingly. Patient was last seen in cardiology office: 03/18/24. Upcoming appointment scheduled: 07/27/24. Labs: Hemoglobin (g/dL) Date Value 04/01/2024 14.6 03/10/2017 15.3 Hematocrit (%) Date Value 04/01/2024 42.8 03/10/2017 47.4 WBC (k/uL) Date Value 04/01/2024 6.77 03/10/2017 6.49 Platelet Count (k/uL) Date Value 04/01/2024 149 03/10/2017 126 Creatinine Date Value Ref Range Status 04/01/2024 1.48 (H) 0.73 - 1.22 mg/dL Final 03/02/2024 1.55 (H) 0.73 - 1.22 mg/dL Final documented in this encounter [facility] 04-09-2024 Telephone encounter Note Prescription refill approved on April 09, 2024 and routed to pharmacy to be filled Samara Fernandez PA-C [facility] Work Phone: 04-09-2024 Miscellaneous Notes Prescription refill approved on April 09, 2024 and routed to pharmacy to be filled Samara Fernandez PA-C Patient needs new script sent to [facility] as [facility] closed. Patient only has enough medication for today. Prescription Refill Information The patient has been identified by name and date of : Yes Caregiver verified no other encounters exist for this prescription request: Yes Caregiver confirmed with patient/requestor that no other refills are due, in the near future, with this provider at this time: Yes The last office visit in the department: 03/18/24 Does the patient have a future office visit with this provider/department: Yes Requested Prescriptions Pending Prescriptions Disp Refills rivaroxaban (XARELTO) 20 mg tablet 30 tablet 0 Sig: Take 1 tablet by mouth daily with dinner. Mary Mondragon April 09, 2024 9:20 AM Mary Mondragon April 09, 2024 9:18 AM documented in this encounter [facility] 04-09-2024 Telephone encounter Note Patient needs new script sent to [facility] as [facility] closed. Patient only has enough medication for today. Prescription Refill Information The patient has been identified by name and date of : Yes Caregiver verified no other encounters exist for this prescription request: Yes Caregiver confirmed with patient/requestor that no other refills are due, in the near future, with this provider at this time: Yes The last office visit in the department: 03/18/24 Does the patient have a future office visit with this provider/department: Yes Requested Prescriptions Pending Prescriptions Disp Refills rivaroxaban (XARELTO) 20 mg tablet 30 tablet 0 Sig: Take 1 tablet by mouth daily with dinner. Mary Mondragon April 09, 2024 9:20 AM Mary Mondragon April 09, 2024 9:18 AM [facility] 03-18-2024 Instructions Melisa Briceño APRN.CNP - 03/18/2024 2:33 PM EDT Cardioversion Instructions: Nothing to eat or drink after midnight. 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 documented in this encounter [facility] 03-18-2024 History of Present illness Narrative Images from the original note were not included. [facility] Department of Cardiovascular Medicine SECTION OF ELECTROPHYSIOLOGY AND PACING OUTPATIENT VISIT DATE March 18, 2024 OUTPATIENT VISIT TYPE ESTABLISHED PRIMARY CARE PHYSICIAN: [place] [address] CHIEF COMPLAINT: Follow Up HISTORY OF PRESENT ILLNESS: Mr. Rosen is a 68 year old male, patient of Dr. Pablo and Dr. Scott, who presents today for a cardiovascular medicine follow-up visit regarding atrial fibrillation s/p EPS:PVI 6.28. He since has had recurrence of atrial fibrillation and was seen in [facility] ER. PMH: Persistent atrial fibrillation s/p EPS:PVI, reported CAD, hypertension, dyslipidemia, HFmrEF (~45%), polycystic renal disease s/p renal transplant, PAST MEDICAL HISTORY Diagnosis Date Coronary atherosclerosis of unspecified type of vessel, [place] or graft Mild 3-vessel Coronary artery disease [...] Father Emphysema Father ALLERGIES No Known Allergies MEDICATIONS: metoprolol tartrate, short acting, (LOPRESSOR) 25 mg tablet Take 2 tablets by mouth two times a day. sucralfate (CARAFATE) 1 gram tablet Take 1 tablet by mouth before meals and at bedtime. only for 30 days, then discontinue there after rivaroxaban (XARELTO) 20 mg tablet Take 1 tablet by mouth daily with dinner. mycophenolate mofetil (CELLCEPT) 250 mg capsule Take 2 capsules by mouth two times a day. tacrolimus IR (PROGRAF) 1 mg capsule Take(1) capsule by mouth twice daily predniSONE (DELTASONE) 5 mg tablet take 1 tablet by mouth once daily sulfamethoxazole-trimethoprim (BACTRIM) 400-80 mg per tablet take 1 tablet by mouth once daily gabapentin (NEURONTIN) 300 mg capsule Take 300 mg by mouth twice daily. CALCIUM CARBONATE/VITAMIN D3 (CALCIUM + D ORAL) Take one(1) tablet two(2) times daily. REVIEW OF SYSTEMS: ROS is otherwise negative apart from what has been documented in HPI PHYSICAL EXAMINATION: BP 122/68 Pulse 94 Ht 213.4 cm (7') Wt (!) 174.2 kg (384 lb 0.7 oz) BMI 38.27 kg/m General: Well appearing, in no acute distress, speaking in complete sentences. Skin: No clubbing, no cyanosis. Neck: No jugular venous distention, no carotid bruits Lungs: Clear to auscultation bilaterally, no wheezing or rhonchi. Heart: Irregularly irregular Abdomen: Soft, nontender, bowel sounds present Extremities: No peripheral edema . Grade 2/4 distal pulses bilaterally. Neuro: Oriented to person, place and time, alert, cooperative. CARDIOVASCULAR MEDICINE TESTING: Labs: Latest Ref Rng 11/03/2023 12/02/2023 03/02/2024 Glucose 74 - 99 mg/dL 128 (H) 110 (H) 133 (H) BUN 9 - 24 mg/dL 13 15 13 Creatinine 0.73 - 1.22 mg/dL 1.28 (H) 1.36 (H) 1.55 (H) Sodium 136 - 144 mmol/L 140 139 142 Potassium 3.7 - 5.1 mmol/L 4.7 4.3 4.3 Chloride 98 - 107 mmol/L 104 104 106 CO2 22 - 30 mmol/L 23 24 28 Anion Gap 8 - 15 mmol/L 13 11 8 eGFR >=60 mL/min/1.73m 62 57 (L) 49 (L) Latest Ref Rng 11/03/2023 12/02/2023 03/02/2024 WBC 3.70 - 11.00 k/uL 6.64 6.39 6.19 RBC 4.20 - 6.00 m/uL 4.71 4.92 4.76 Hemoglobin 13.0 - 17.0 g/dL 14.9 15.4 15.1 Hematocrit 39.0 - 51.0 % 43.8 45.8 44.2 MCV 80.0 - 100.0 fL 93.0 93.1 92.9 MCH 26.0 - 34.0 pg 31.6 31.3 31.7 MCHC 30.5 - 36.0 g/dL 34.0 33.6 34.2 RDW-CV 11.5 - 15.0 % 13.2 13.3 12.6 Platelet Count 150 - 400 k/uL 141 (L) 136 (L) 143 (L) ECG 03/18/2024: Atrial fibrillation VR 94 ECHO 10/31/2023: - Technically difficult exam due to body [...] prior CC echocardiographic exam for comparison. I have personally reviewed the Electrocardiogram and Laboratory Testing. IMPRESSION/PLAN: Persistent atrial fibrillation s/p EPS:PVI [id number]: 3 (Age, HTN, PVD)--Xarelto 20 mg every day with dinner ECG today demonstrates atrial fibrillation VR 94 Recurrence of atrial fibrillation s/p PVI. Discussed plan with customer assistance representative and Dr. Pablo--will start Amiodarone 200 mg BID x7 days, then 200 mg daily. He will have tacrolimus level drawn in ~2 weeks. I ordered this and have his customer assistance representative cc'd on them. Will plan for DCCV at [facility] in ~3 weeks Follow up with Dr. Pablo in 3 months. CONTACT INFORMATION: Melisa Briceño APRN.SEAN Cardiology [id number] [facility] [address] Dept: [phone] documented in this encounter [facility] 03-18-2024 Note HNO ID: [id number] Author: MELISA BRICEÑO APRN.SEAN Service: ? Author Type: Nurse Practitioner Type: Progress Notes Filed: 03/18/2024 16:07 Note Text: [facility] Department of Cardiovascular Medicine SECTION OF ELECTROPHYSIOLOGY AND PACING OUTPATIENT VISIT DATE March 18, 2024 OUTPATIENT VISIT TYPE ESTABLISHED PRIMARY CARE PHYSICIAN: [place] [address] CHIEF COMPLAINT: Follow Up HISTORY OF PRESENT ILLNESS: Mr. Rosen is a 68 year old male, patient of Dr. Pablo and Dr. Scott, who presents today for a cardiovascular medicine follow-up visit regarding atrial fibrillation s/p EPS:PVI 6.28. He since has had recurrence of atrial fibrillation and was seen in [facility] ER. PMH: Persistent atrial fibrillation s/p EPS:PVI, reported CAD, hypertension, dyslipidemia, HFmrEF (~45%), polycystic renal disease s/p renal transplant, PAST MEDICAL HISTORY Diagnosis Date Coronary atherosclerosis of unspecified type of vessel, [place] or graft Mild 3-vessel Coronary artery disease Hypertension Polycystic kidney, unspecified type 1994 S/p cadaver renal transplant Umbilical hernia PAST [...] Father Emphysema Father ALLERGIES No Known Allergies MEDICATIONS: metoprolol tartrate, short acting, (LOPRESSOR) 25 mg tablet Take 2 tablets by mouth two times a day. sucralfate (CARAFATE) 1 gram tablet Take 1 tablet by mouth before meals and at bedtime. only for 30 days, then discontinue there after rivaroxaban (XARELTO) 20 mg tablet Take 1 tablet by mouth daily with dinner. mycophenolate mofetil (CELLCEPT) 250 mg capsule Take 2 capsules by mouth two times a day. tacrolimus IR (PROGRAF) 1 mg capsule Take(1) capsule by mouth twice daily predniSONE (DELTASONE) 5 mg tablet take 1 tablet by mouth once daily sulfamethoxazole-trimethoprim (BACTRIM) 400-80 mg per tablet take 1 tablet by mouth once daily gabapentin (NEURONTIN) 300 mg capsule Take 300 mg by mouth twice daily. CALCIUM CARBONATE/VITAMIN D3 (CALCIUM + D ORAL) Take one(1) tablet two(2) times daily. REVIEW OF SYSTEMS: ROS is otherwise negative apart from what has been documented in HPI PHYSICAL EXAMINATION: BP 122/68 Pulse 94 Ht 213.4 cm (7') Wt (!) 174.2 kg (384 lb 0.7 oz) BMI 38.27 kg/m? General: Well appearing, in no acute distress, speaking in complete sentences. Skin: No clubbing, no cyanosis. Neck: No jugular venous distention, no carotid bruits Lungs: Clear to auscultation bilaterally, no wheezing or rhonchi. Heart: Irregularly irregular Abdomen: Soft, nontender, bowel sounds present Extremities: No peripheral edema . Grade 2/4 distal pulses bilaterally. Neuro: Oriented to person, place and time, alert, cooperative. CARDIOVASCULAR MEDICINE TESTING: Labs: Latest Ref Rng 11/03/2023 12/02/2023 03/02/2024 Glucose 74 - 99 mg/dL 128 (H) 110 (H) 133 (H) BUN 9 - 24 mg/dL 13 15 13 Creatinine 0.73 - 1.22 mg/dL 1.28 (H) 1.36 (H) 1.55 (H) Sodium 136 - 144 mmol/L 140 139 142 Potassium 3.7 - 5.1 mmol/L 4.7 4.3 4.3 Chloride 98 - 107 mmol/L 104 104 106 CO2 22 - 30 mmol/L 23 24 28 Anion Gap 8 - 15 mmol/L 13 11 8 eGFR >=60 mL/min/1.73m? 62 57 (L) 49 (L) Latest Ref Rng 11/03/2023 12/02/2023 03/02/2024 WBC 3.70 - 11.00 k/uL 6.64 6.39 6.19 RBC 4.20 - 6.00 m/uL 4.71 4.92 4.76 Hemoglobin 13.0 - 17.0 g/dL 14.9 15.4 15.1 Hematocrit 39.0 - 51.0 % 43.8 45.8 44.2 MCV 80.0 - 100.0 fL 93.0 93.1 92.9 MCH 26.0 - 34.0 pg 31.6 31.3 31.7 MCHC 30.5 - 36.0 g/dL 34.0 33.6 34.2 RDW-CV 11.5 - 15.0 % 13.2 13.3 12.6 Platelet Count 150 - 400 k/uL 141 (L) 136 (L) 143 (L) ECG 03/18/2024: Atrial fibrillation VR 94 ECHO 10/31/2023: - Technically difficult exam due to body [...] The left atrial cavity is mildly dilated. (more content not included)... [facility] 03-12-2024 Telephone encounter Note Merlin, We received a request for a PET Rest/Stress. Per our scheduling protocol if the LVEF is 50% or less we will need a PET CARDIAC Viability Order ([id number]). LVEF is 45%. Please place the additional order and advise once completed. Danielle Pichardo [facility] Work Phone: 03-12-2024 Miscellaneous Notes Huifrancis, We received a request for a PET Rest/Stress. Per our scheduling protocol if the LVEF is 50% or less we will need a PET CARDIAC Viability Order ([id number]). LVEF is 45%. Please place the additional order and advise once completed. Danielle Pichardo This form is used for MAIN CAMPUS APPOINTMENTS ONLY. Is this request for a [place] PET scan appointment? Yes: Cardiovascular Invasive Specialist: Belen Caldwell Requesting Person (Last Name, First Name): Emanuel Scott MD Area Code + Phone/Pager: [phone] Who do we call to schedule this appointment? Patient Requesting Staff Emanuel Scott MD Area Code + Phone/Pager: [phone] PET Orders (A delay in scheduling will result if the orders are not present at time of review): Internal ADDITIONAL ACTION MAY BE REQUIRED IF PATIENTS OON INSURANCE OR SELF PAY COVERAGE HAS NOT BEEN CLEARED FOR REQUESTED APPOINTMENT. Scheduling: WENDY: As soon as insurance will allow What account will this PET appointment be linked to? P/F Type of PET: Myocardial (Cardiac). Which PET orders are active (select all that apply)? PET Cardiac Rest/Stress Is this cardiac PET for Sarcoidosis?(See orders) No Is this a NON-[facility] Physician ordering a cardiac PET with a FAXED script? No. Same day/next day medically urgent scans please call [phone] to expedite LVEF: LV Ejection Fraction (%) Date Value 10/31/2023 45 LVEF Free text: No, I do not have a result. Please contact ordering MD and request PET scan once LVEF is available. Cardiac PET scan requests require a LVEF/Ejection Fraction result before we can triage and schedule. Please complete appropriate testing to provide the LVEF prior to requesting a Cardiac PET scan Questions: Please contact Cardiology [place] reading room at [phone] Additional comments: n/a Send requests to P CARDIAC PET MD SANTILLAN documented in this encounter [facility] 03-12-2024 Telephone encounter Note This form is used for MAIN CAMPUS APPOINTMENTS ONLY. Is this request for a [place] PET scan appointment? Yes: Cardiovascular Invasive Specialist: Belen Caldwell Requesting Person (Last Name, First Name): Emanuel Scott MD Area Code + Phone/Pager: [phone] Who do we call to schedule this appointment? Patient Requesting Staff Emanuel Scott MD Area Code + Phone/Pager: [phone] PET Orders (A delay in scheduling will result if the orders are not present at time of review): Internal ADDITIONAL ACTION MAY BE REQUIRED IF PATIENTS OON INSURANCE OR SELF PAY COVERAGE HAS NOT BEEN CLEARED FOR REQUESTED APPOINTMENT. Scheduling: WENDY: As soon as insurance will allow What account will this PET appointment be linked to? P/F Type of PET: Myocardial (Cardiac). Which PET orders are active (select all that apply)? PET Cardiac Rest/Stress Is this cardiac PET for Sarcoidosis?(See orders) No Is this a NON-[facility] Physician ordering a cardiac PET with a FAXED script? No. Same day/next day medically urgent scans please call [phone] to expedite LVEF: LV Ejection Fraction (%) Date Value 10/31/2023 45 LVEF Free text: No, I do not have a result. Please contact ordering MD and request PET scan once LVEF is available. Cardiac PET scan requests require a LVEF/Ejection Fraction result before we can triage and schedule. Please complete appropriate testing to provide the LVEF prior to requesting a Cardiac PET scan Questions: Please contact Cardiology [place] reading room at [phone] Additional comments: n/a Send requests to P CARDIAC PET MD SANTILLAN [facility] 03-12-2024 History of Present illness Narrative Images from the original note were not included. [facility]IONAL CARDIOLOGY OUTPATIENT VISIT DATE March 12, 2024 OUTPATIENT VISIT TYPE Established PRIMARY CARE PHYSICIAN: Kathleen Sams [address] [place] [address] REFERRING PHYSICIAN: Usman Lowry [address] [facility] [id number] C/C: Follow-up for atrial fibrillation Last and initial visit with il November 2023 HISTORY OF PRESENT ILLNESS: Mr. Rosen is a 68 year old male, seen in clinic today for follow-up for atrial fibrillation CV history reviewed, summarized and updated: Initial visit with il in Sep 2023-noted to be in Afib of unknown duration, first diagnosis. Status post DCCV November 05, 2023. Recurrence of A-Fib post DCCV Echocardiogram October 31, 2023-LVEF mildly decreased at 45%, RV normal size and function, dilated aorta at 4.9 cm. Was unable to complete stress SPECT due to A-Fib with RVR, had rest images only. Since prior visit with me, S/p PVI/ablation with Dr. Pablo February 2024. He denies any new symptoms. 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 Never smoker. REVIEW OF SYSTEMS: 10 systems reviewed and are negative with the exception of pertinent positives described in HPI PHYSICAL EXAMINATION: There were no vitals taken for this visit. General: No acute distress, appears comfortable HEENT: [...] Coronary atherosclerosis of unspecified type of vessel, [place] or graft Mild 3-vessel Coronary artery disease [...] ALLERGIES: ALLERGIES No Known Allergies CURRENT MEDICATIONS: sucralfate (CARAFATE) 1 gram tablet Take 1 tablet by mouth before meals and at bedtime. only for 30 days, then discontinue there after rivaroxaban (XARELTO) 20 mg tablet Take 1 tablet by mouth daily with dinner. mycophenolate mofetil (CELLCEPT) 250 mg capsule Take 2 capsules by mouth two times a day. metoprolol tartrate, short acting, (LOPRESSOR) 25 mg tablet Take 1.5 tablets by mouth two times a day. tacrolimus IR (PROGRAF) 1 mg capsule Take(1) capsule by mouth twice daily predniSONE (DELTASONE) 5 mg tablet take 1 tablet by mouth once daily sulfamethoxazole-trimethoprim (BACTRIM) 400-80 mg per tablet take 1 tablet by mouth once daily gabapentin (NEURONTIN) 300 mg capsule Take 300 mg by mouth twice daily. CALCIUM CARBONATE/VITAMIN D3 (CALCIUM + D ORAL) Take one(1) tablet two(2) times daily. IMPRESSION/PLAN AND RECOMMENDATIONS: Persistent atrial fibrillation, was diagnosed in Jun 2023. Status post DCCV November 05, 2023, with recurrence of atrial fibrillation post DCCV. S/p PVI/ablation 03/05/2024, feels like he went back into A-Fib yesterday, had ED visit yesterday with concern for UTI. No UTI noted, but noted to be back in A-Fib. Overall no specific symptoms from A-fib, but he notices the pulse irregularity. Echocardiogram did show mild decline in LVEF at around 45%. [id number] score of 2, primarily with history of hypertension and age. Intermediate risk of thromboembolism. Currently tolerating anticoagulation without any bleeding complications. Thoracic aortic aneurysm, maximum dimension mention that 4.9 cm by echocardiogram. However, echocardiogram reviewed, image quality is too poor for accurate quantitation of the aorta. Increase metoprolol to tartrate to 50 mg twice daily Continue Xarelto 20 mg daily F/u with EP as scheduled on 03/18/2024. 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 As such, will proceed with a stress PET. F/u in 3 mo Emanuel Scott MD documented in this encounter [facility] 03-12-2024 Note HNO ID: [id number] Author: EMANUEL SCOTT MD Service: ? Author Type: Physician Type: Progress Notes Filed: 03/12/2024 10:07 Note Text: [facility] SECTION OF [facility]IONAL CARDIOLOGY OUTPATIENT VISIT DATE March 12, 2024 OUTPATIENT VISIT TYPE Established PRIMARY CARE PHYSICIAN: [place] [address] REFERRING PHYSICIAN: Usman Lowry [address] [facility] [id number] C/C: Follow-up for atrial fibrillation Last and initial visit with il November 2023 HISTORY OF PRESENT ILLNESS: Mr. Rosen is a 68 year old male, seen in clinic today for follow-up for atrial fibrillation CV history reviewed, summarized and updated: Initial visit with me in Sep 2023-noted to be in Afib of unknown duration, first diagnosis. Status post DCCV November 05, 2023. Recurrence of A-Fib post DCCV Echocardiogram October 31, 2023-LVEF mildly decreased at 45%, RV normal size and function, dilated aorta at 4.9 cm. Was unable to complete stress SPECT due to A-Fib with RVR, had rest images only. Since prior visit with me, S/p PVI/ablation with Dr. Pablo February 2024. He denies any new symptoms. 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 Never smoker. REVIEW OF SYSTEMS: 10 systems reviewed and are negative with the exception of pertinent positives described in HPI PHYSICAL EXAMINATION: There were no vitals taken for this visit. General: No acute distress, appears comfortable HEENT: [...] Coronary atherosclerosis of unspecified type of vessel, [place] or graft Mild 3-vessel Coronary artery disease [...] ALLERGIES: ALLERGIES No Known Allergies CURRENT MEDICATIONS: sucralfate (CARAFATE) 1 gram tablet Take 1 tablet by mouth before meals and at bedtime. only for 30 days, then discontinue there after rivaroxaban (XARELTO) 20 mg tablet Take 1 tablet by mouth daily with dinner. mycophenolate mofetil (CELLCEPT) 250 mg capsule Take 2 capsules by mouth two times a day. metoprolol tartrate, short acting, (LOPRESSOR) 25 mg tablet Take 1.5 tablets by mouth two times a day. tacrolimus IR (PROGRAF) 1 mg capsule Take(1) capsule by mouth twice daily predniSONE (DELTASONE) 5 mg tablet take 1 tablet by mouth once daily sulfamethoxazole-trimethoprim (BACTRIM) 400-80 mg per tablet take 1 tablet by mouth once daily gabapentin (NEURONTIN) 300 mg capsule Take 300 mg by mouth twice daily. CALCIUM CARBONATE/VITAMIN D3 (CALCIUM + D ORAL) Take one(1) tablet two(2) times daily. IMPRESSION/PLAN AND RECOMMENDATIONS: Persistent atrial fibrillation, was diagnosed in Jun 2023. Status post DCCV November 05, 2023, with recurrence of atrial fibrillation post DCCV. S/p PVI/ablation 03/05/2024, feels like he went back into A-Fib yesterday, had ED visit yesterday with concern for UTI. No UTI noted, but (more content not included)... [facility] 03-11-2024 Telephone encounter Note Received call from outside hospital ER that patient has presented with recurrent atrial fibrillation, rate is well controlled. He is reported to be hemodynamically stable and has no evidence of significant fluid volume overload. Patient has appointment with Dr. Hazarika tomorrow. They will advise him to keep this appointment with her. He will also be seeing me on 03/18. I spoke with Dr. Pablo and we discussed initiating Amiodarone for short term therapy to facilitate confucianism and maintenance of sinus rhythm during ~3 month blanking period s/p PVI and he agreed that such would be appropriate provided that we discuss this with his nephology transplant team to ensure there will be no significant interaction with Cellcept and tacrolimus. I will reach out ot this team and obtain their opinion prior to starting. Melisa Briceño APRN.CNP [facility] Work Phone: 03-11-2024 Miscellaneous Notes Received call from outside hospital ER that patient has presented with recurrent atrial fibrillation, rate is well controlled. He is reported to be hemodynamically stable and has no evidence of significant fluid volume overload. Patient has appointment with Dr. Scott tomorrow. They will advise him to keep this appointment with her. He will also be seeing me on 03/18. I spoke with Dr. Pablo and we discussed initiating Amiodarone for short term therapy to facilitate confucianism and maintenance of sinus rhythm during ~3 month blanking period s/p PVI and he agreed that such would be appropriate provided that we discuss this with his nephology transplant team to ensure there will be no significant interaction with Cellcept and tacrolimus. I will reach out ot this team and obtain their opinion prior to starting. Melisa Briceño APRN.CNP documented in this encounter [facility] 03-06-2024 Note HNO ID: [id number] Author: ?, ?, ? Service: ? Author Type: ? Type: Plan of Care Filed: 03/09/2024 15:44 Note Text: PHARMACY BEDSIDE DELIVERY SERVICE Patient Name: Link Rosen The marked outpatient medications were filled at [facility] pharmacy and picked up at the pharmacy [...] 81 mg chewable tablet Radha Her PAGER: [id number] March 09, 2024 3:43 PM [facility] 03-05-2024 Note HNO ID: [id number] Author: BARBARA AZUL AA Service: ? Author Type: Department Traffic Freight Router Type: Anesthesia Procedure Notes Filed: 03/05/2024 14:04 [...] Successful intubation technique: video laryngoscopy Devices used: [employer] Endotracheal tube insertion site: oral Blade: Alejandro [...] March 05, 2024 TIME: 2:03 PM CSN: [id number] [facility] 01-21-2024 Telephone encounter Note Called and spoke to patient and scheduled his pvi ablation with Dr Pablo for February 10 at [facility]. Patient given instructions and sent mychart. Folllow up scheduled. [facility] 01-21-2024 Telephone encounter Note ----- Message from MINDY May sent at 01/21/2024 12:16 PM EDT ----- Regarding: FW: PVI 02/10 ----- Message ----- From: Wei Pablo MD Sent: 01/15/2024 1:45 PM EDT To: MINDY May; Karleen Mondragon; # Subject: PVI Dot phrase for pVI. He would prefer to be 2nd round- He lives in [place] ( more [address] [facility] EPS Lab Request: EPS Patient: Link Rosen Requested by Wei Pablo MD Requesting Physician: Dr Michael Scott Procedure Physician: Wei Pablo MD Procedure Requested: AFIB CPT:08328 Anesthesia type: General Date of Last H&P? 01/2024 Indications / Dx for Procedure: A-Fib Procedure Time Frame: 3-4 weeks Estimated length of case: 2 HOURS Mapping System: [employer] nanoter (CARTO) Special Needs: ICE (intracardiac echo), enso etm esophageal cooling Potential Research Patient? No Type of bed needed? OVERNIGHT Medication to be stopped(please specify medication/timeframe): No [facility] 01-21-2024 Miscellaneous Notes Called and spoke to patient and scheduled his pvi ablation with Dr Pablo for February 10 at [facility]. Patient given instructions and sent mychart. Hamptonlow up scheduled. ----- Message from MINDY May sent at 01/21/2024 12:16 PM EDT ----- Regarding: FW: PVI 02/10 ----- Message ----- From: Wei Pablo MD Sent: 01/15/2024 1:45 PM EDT To: MINDY May; Karlene Mondragon; # Subject: PVI Dot phrase for pVI. He would prefer to be 2nd round- He lives in [place] ( more [address] [facility] EPS Lab Request: EPS Patient: Link Rosen Requested by Wei Pablo MD Requesting Physician: Dr Michael Scott Procedure Physician: Wei Pablo MD Procedure Requested: AFIB CPT:87338 Anesthesia type: General Date of Last H&P? 01/2024 Indications / Dx for Procedure: A-Fib Procedure Time Frame: 3-4 weeks Estimated length of case: 2 HOURS Mapping System: [employer] (CARTO) Special Needs: ICE (intracardiac echo), enso etm esophageal cooling Potential Research Patient? No Type of bed needed? OVERNIGHT Medication to be stopped(please specify medication/timeframe): No documented in this encounter [facility] 01-15-2024 History of Present illness Narrative Images from the original note were not included. [facility] SECTION OF [facility]IONAL CARDIOLOGY OUTPATIENT VISIT DATE January 15, 2024 OUTPATIENT VISIT TYPE NEW PRIMARY CARE PHYSICIAN: [place] [address] A written report of the findings and recommendations will be sent to the requesting provider via shared medical record or via [facility]. Patient is being seen at the request of Dr Scott for Afib HISTORY OF PRESENT ILLNESS: Mr. Rosen is a 68 year old male who lives in [place] with HTN, Polycystic kidney s/p renal transplant. [...] to proceed. CKD S/p renal transplant. NICM: Ramsey tachy mediated. Clinically euvolemic. For afib ablation [...] to proceed. CKD S/p renal transplant. NICM: Ramsey tachy mediated. Clinically euvolemic. For afib ablation [...] RAPID VENTRICULAR RESPONSE Confirmed by ANSON PATTERSON, [facility] ([id number]) on 12/26/2023 6:35:59 PM PAST CARDIAC HISTORY: See below PAST MEDICAL HISTORY Diagnosis Date Coronary atherosclerosis of unspecified type of vessel, [place] or graft Mild 3-vessel Coronary artery disease [...] Reported on 11/10/2023) documented in this encounter [facility] 12-26-2023 History of Present illness Narrative [...] PATIENT PRESENTS WITH AN IMPLANTABLE OR ATTACHED EKG MANAGER: No CREATININE: Creatinine Date Value Ref Range [...] STATUS: Discontinued PROCEDURE TYPE: NM Stress: 16mCi [id number] was administered IV for Rest Imaging at [...] due to afib. will be rescheduled at [facility] and told to take meds NO Images obtained ADDITIONAL EVENT DETAILS: N/A SIGNATURE: Suzette Barr PATIENT NAME: Link Rosen DATE: December 26, 2023 TIME: 1:53 PM PAGER/CONTACT #: A Diagnostic radioactive procedure has taken place, with no further precautions necessary other than routine body substance precautions. More information regarding radiation safety can be found using this link: [email or web address] [email or web address] SIGNATURE: Suzette Barr PATIENT NAME: Link Rosen DATE: December 26, 2023 TIME: 12:52 PM PAGER/CONTACT #: documented in this encounter [facility] 12-26-2023 Nurse Note Pt presented for nuclear medicine stress. Upon hooking patient up to three lead monitor for nuclear camera, FISCAL ASSISTANT Tequila noticed that pt's HR was jumping [...] via secure chat. documented in this encounter [facility] 11-26-2023 Miscellaneous Notes The following approved [...] pharmacy. MINDY Kaur documented in this encounter [facility] 11-23-2023 Miscellaneous Notes The following approved [...] day. MINDY Kaur documented in this encounter [facility] 11-10-2023 History of Present illness Narrative Images from the original note were not included. [facility] SECTION OF [facility]IONAL CARDIOLOGY OUTPATIENT VISIT DATE November 10, 2023 OUTPATIENT VISIT TYPE Established PRIMARY CARE PHYSICIAN: Kathleen Sams [address] [place] [address] REFERRING PHYSICIAN: Usman Lowry [address] [facility] [id number] C/C: Follow-up for atrial fibrillation Last and initial visit with il September 2023 HISTORY OF PRESENT ILLNESS: Mr. Rosen is a 68 year old male, seen in clinic today for follow-up for atrial fibrillation His last and initial visit with il, noted to be in atrial fibrillation of [...] Coronary atherosclerosis of unspecified type of vessel, [place] or graft Mild 3-vessel Coronary artery disease [...] mild decline in LVEF at around 45% [id number] score of 2, primarily with history of [...] Emanuel Scott MD documented in this encounter [facility] 07-01-2023 Nurse Note EKG performed as ordered. Transmitted to [facility] electronically, placed in scanning. Briana Castillo MA documented in this encounter [facility] 06-30-2023 History of Present illness Narrative Patient presents for renal tx follow up care The HPI and Assessment was copied from my previous note dated 07/01/2022 with changes as noted Mr. Link Rosen is a 68 year old male who presents for follow up of a dual adult DD kidney transplant. 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 Had ventral hernia repair in February 2013. Baseline scr 1.2-1.4 Brother had renal tx here in Aug 2020 PAST MEDICAL HISTORY Diagnosis Date Coronary atherosclerosis of unspecified type of vessel, [place] or graft Mild 3-vessel Coronary artery disease [...] DNA by PCR 06/05/2021 Test reordered by [facility]. 03/06/2021 Negative for BK virus [...] noted. RTC [address] Thad Lowry APRN.SEAN documented in this encounter [facility] 06-26-2023 Miscellaneous Notes The following approved [...] pharmacy. Cabrera Grant documented in this encounter [facility] 12-05-2022 Miscellaneous Notes The following approved medication requests have been transmitted electronically. Requested Prescriptions Signed Prescriptions Disp Refills tacrolimus IR (PROGRAF) 1 mg capsule 270 capsule 3 Sig: Take(1) capsule by mouth twice daily Usman Lowry APRN.SEAN documented in this encounter [facility] 11-05-2022 History of Present illness Narrative VIRTUAL VISIT FOLLOW UP PATIENT: Link Rosen [id number] 11/05/2022 This is a virtual visit using Intelliden video visit. It required patient-provider interaction for [...] Cribriform pattern 4: No Intraductal carcinoma: No Aerial Crop Duster tumor block to use for additional studies: [...] lateral posterior, core biopsy: - Prostatic adenocarcinoma, [place] score 3+4=7 (Grade Group 2), involving 1/2 core(s) (2 mm tumor length, 10%). - Percentage of Jalil pattern 4 = <5%. - Cribriform morphology absent. C. Prostate, left medial anterior, core biopsy: - Benign prostatic tissue. D. Prostate, left medial posterior, core biopsy: - Prostatic adenocarcinoma, [place] score 3+3=6 (Grade Group 1), involving 1/2 core(s) (2 mm tumor length, 15%). E. Prostate, right lateral anterior, core biopsy: - Benign prostatic tissue. F. Prostate, right lateral posterior, core biopsy: - Benign prostatic tissue. G. Prostate, right medial anterior, core biopsy: - Prostatic adenocarcinoma, [place] score 3+3=6 (Grade Group 1), involving 1/2 core(s) (3 mm tumor length, 20%). H. Prostate, right medial posterior, core biopsy: - Benign prostatic tissue. Prostate Cancer Biopsy Summary Number of cores examined: 16 Number of cores positive: 3 Highest Grade Group: 2 Highest % of core involvement: 20% Cribriform pattern 4: No Intraductal carcinoma: No Aerial Crop Duster tumor block to use for additional studies: [...] and lasted [address]. [address] Giorgio Burks by emerita Hackett scribe on 11/05/2022 I agree with the Chief Complaint, ROS, and Past Histories independently gathered by the clinical community support specialist including scribe and or medical student and or DESIREE and or resident or fellow and the remaining scribed note accurately describes my personal service to the patient. Giorgio Burks MD, MS [facility] documented in this encounter [facility] 10-17-2022 History of Present illness Narrative [...] Plan of Care Visit completed when applicable. Steven Boogie RN Guided US for Transperineal Prostate Biopsy Report Name: Link Rosen MR#: [id number] Date: October 16, 2022 DIAGNOSIS: Elevated PSA: 5.77, did not get MRI as planned TRANSRECTAL ULTRASOUND: Documentation images were taken. Yes Surgeon(s)/Proceduralist(s) and Chef Saucier(s): Surgeon(s) and Role: * Giorgio Burks - Primary Procedure(s): Systematic Transperineal Random [...] to discuss pathology results. Scribed for Dr. Giorgio Burks by emerita Hackett scribe on 10/17/2022 I agree with the Chief Complaint, ROS, and Past Histories independently gathered by the clinical community support specialist including scribe and or medical student and or DESIREE and or resident or fellow and the remaining scribed note accurately describes my personal service to the patient. Giorgio Burks MD, MS [facility] documented in this encounter [facility] 10-17-2022 Nurse Note Actual procedure/procedure scheduled: Yes Performing provider/scheduled provider: Yes Patient was roomed in: Q9- 15 Patient arrived in the room at: 0745 Patient ready for procedure: 0810 The procedure started at ( Time Only): 0820 The procedure ended at: 0835 Was the procedure delayed: No The patient left the procedure room at: 0849 Steven Boogie RN PRE PROCEDURE ASSESSMENT- Transperineal Bx [...] BX Patient ID with two(2)identifiers verified by: Steven Boogie RN Pre-Procedure Antibiotics: None taken at home nor prior to procedure Anesthetic given: Administered by MD - see Procedure Physician Note. UNIVERSAL PROTOCOL / SAFETY CHECKLIST Procedure to be performed: Transperineal Biopsy Sign in Communication: Completed Time Out: Team Confirms the Correct Patient, Correct Procedure, Correct Site and Site Marking, Correct Position (if applicable) Sign Out Discussion: Completed Steven Boogie RN POST PROCEDURE NURSE ASSESSMENT Present along with physician during procedure exam. Steven Boogie RN Instruction sheet given and reviewed and patient verbalizes understanding: yes Post-Procedure Vital Signs: BP: 152/85 Pulse: 100 Current pain intensity is 0 on a 0-10 pain scale. Post-Procedure Medications: none Steven Boogie RN PATIENT EDUCATION THE FOLLOWING WAS EVALUATED Motivation To Learn: Interested Family/Significant Other Support: None - Unavailable/disinterested Cognitive Ability: Alert/Oriented Patient Learns Best By: Individual instruction Written instruction - handouts Verbal instruction The Following Influencing Factors Were Barriers To This Education Session: None The Following Physical Limitations Were Barriers To This Education Session: None Instruction Provided To:Patient Signal Intelligence/Electronic Warfare Present: not applicable Discipline: Nursing Learning Topic: Survival Skills: Symptom Management Patient Evaluation: Verbalizes understanding: Yes Supplemental Material Given: Written Material Instructed By Steven Boogie RN In Department Urology . documented in this encounter [facility] 09-16-2022 History of Present illness Narrative [facility] ESTABLISHED PATIENT [...] 04/24/2009 7.39 7.35 - 7.45 Final Specific [place], [place] Date Value Ref Range Status 07/01/2022 [...] Coronary atherosclerosis of unspecified type of vessel, [place] or graft Mild 3-vessel Coronary artery disease [...] is indicated. The company offering this test, [employer] was co-founded by the [facility]. The [facility] has a minority ownership position in the company, so the [facility] indirectly benefits financially from the sale of this test. If you have any questions about this, please ask your doctor or call the [employer] and Conflict of Interest Office at [phone]. The precise cost of IsoPSA to an individual patient depends on his specific insurance plan, co-pay provisions, and deductibles, but the maximum aiv-tw-syaqqu expense is $450. For eligible patients, the company's financial assistance program can reduce patient exposure to as little as $100. Please contact the patient patient financial rep at ext [phone] to get an estimate of your ilp-la-xtqtbw cost. IsoPSA has not yet been cleared or approved by the FDA. IsoPSA is a Lab Developed Test performed in a laboratory by [employer] that is regulated under the Clinical Laboratory Improvement Amendments of 1988 (or CLIA) and is overseen by the Centers for Medicare and Medicaid Services (CMS) within the U.S. Department of Health and Human Services. I spent a total of 15 minutes on the date of the service which included preparing to see the patient, [id number] patient care, obtaining and/or reviewing separately obtained history, performing a medically appropriate examination, and ordering medications, tests, or procedures. Kristina Whitaker APRN.CNP documented in this encounter [facility] 03-18-2022 Miscellaneous Notes [place]: 07/05/21 Patient's request for medication is as [...] pharmacy. Emperatriz Nice documented in this encounter [facility] 02-26-2022 History of Present illness Narrative VIRTUAL VISIT FOLLOW UP PATIENT: Link Rosen [id number] 02/26/2022 This is a virtual visit using Intelliden video visit. It required patient-provider interaction for [...] PSA every [address] Giorgio Burks by Saeed Torres, emergency medicine medical director, on February 26, 2022 This visit was conducted as a video visit and lasted 10 minutes. I agree with the Chief Complaint, ROS, and Past Histories independently gathered by the clinical community support specialist including scribe and or medical student and or DESIREE and or resident or fellow and the remaining scribed note accurately describes my personal service to the patient. Giorgio Burks MD, MS [facility] documented in this encounter [facility] 01-31-2022 History of Present illness Narrative [...] Coronary atherosclerosis of unspecified type of vessel, [place] or graft Mild 3-vessel Coronary artery disease [...] Past Histories independently gathered by the clinical community support specialist including scribe and or medical student and or DESIREE and or resident or fellow and the remaining scribed note accurately describes my personal service to the patient. Giorgio Burks MD, MS [facility] ADDENDUM PSA was only 3.6 on follow up so ISOPSA was not done. Follow up in 6 moths with PSA Prostate Cancer Educational Materials Prostate Cancer [facility] Consumer Health http://my.[facility].org/disorde rs/prostate_cancer/hic_prostate_cance r_basics.aspx Prostate Cancer Treatment Guide (download) [facility] http://www.[facility].org/lp/pro state-cancer/index.html National Cancer [place] Treatment Choices for Early-Stage Prostate Cancer https://www.cancer.gov/types/prostate /patient/zoolmbyr-yjdbrwasr-nwn National Cancer [place] Coping with Cancer https://www.cancer.gov/about-cancer/c oping documented in this encounter [facility] 01-30-2022 Note PROCEDURE: XR ANKLE LT [...] authenticated by: JAN CARNES Date: 2022-01-30 11:51 [facility] 07-27-2021 Note PROCEDURE: XR ANKLE LT MIN [...] by: MUSTAPHA BAUGH Date: 2021-07-27 07:29 [facility] Evaluation note Diagnosis Elevated prostate specific antigen [...] Atrial fibrillation [facility] Diagnosis Persistent atrial fibrillation (HCC)- Primary Atrial fibrillation Abnormal EKG Nonspecific abnormal electrocardiogram (ECG) (EKG) Encounter for lipid screening for cardiovascular disease Screening for lipoid disorders Cardiomyopathy, unspecified type (HCC) 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) [facility] Diagnosis Kidney replaced by transplant Need for prophylactic immunotherapy [facility] Diagnosis Persistent atrial fibrillation (HCC) Atrial fibrillation Abnormal EKG Nonspecific abnormal electrocardiogram (ECG) (EKG) [facility] Diagnosis AF (paroxysmal atrial fibrillation) (HCC)- Primary Atrial fibrillation [facility] Diagnosis AF (paroxysmal atrial fibrillation) (HCC)- Primary Atrial fibrillation Atrial fibrillation, unspecified type (HCC) [facility] Diagnosis S/P ablation of atrial fibrillation- Primary Other postprocedural status Persistent atrial fibrillation (HCC) Atrial fibrillation Abnormal EKG Nonspecific abnormal electrocardiogram (ECG) (EKG) Cardiomyopathy, unspecified type (HCC) 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) [facility] Diagnosis Heart disease- Primary Heart disease, unspecified [facility] Diagnosis Atrial fibrillation, persistent (HCC)- Primary Atrial fibrillation S/P ablation of atrial fibrillation Other postprocedural status S/p cadaver renal transplant Kidney replaced by transplant Current use of senior living anticoagulation Long-term (current) use of anticoagulants Primary hypertension Unspecified essential hypertension [facility] Diagnosis Persistent atrial fibrillation (HCC) Atrial fibrillation Abnormal EKG Nonspecific abnormal electrocardiogram (ECG) (EKG) [facility] Diagnosis Kidney replaced by transplant Need for pneumocystis prophylaxis Need for other prophylactic chemotherapy [facility] Diagnosis Irregular heartbeat Cardiac dysrhythmia, unspecified [facility] Diagnosis Need for influenza vaccination- Primary Need for prophylactic vaccination and inoculation against influenza Need for pneumocystis prophylaxis Need for other prophylactic chemotherapy Kidney replaced by transplant Persistent atrial fibrillation (HCC) Atrial fibrillation 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) Unspecified hypertensive heart and kidney disease without heart failure and with chronic kidney disease stage V or end stage renal disease documented in this encounter [facility] note* Diagnosis Screening for genitourinary condition Screening for other and unspecified genitourinary condition documented in this encounter [facility] note* Diagnosis Cardiomyopathy, unspecified type (HCC)- Primary 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) S/P ablation of atrial fibrillation Other postprocedural status PAF (paroxysmal atrial fibrillation) (HCC) Atrial fibrillation On continuous oral anticoagulation Long-term (current) use of anticoagulants documented in this encounter [facility] note* Diagnosis Hypomagnesemia- Primary Disorders of magnesium metabolism Kidney replaced by transplant documented in this encounter [facility] note* Diagnosis Kidney replaced by transplant documented in this encounter [facility] note* Diagnosis Atrial fibrillation, persistent (HCC)- Primary Atrial fibrillation Current use of rn family anticoagulation Long-term (current) use of anticoagulants S/P ablation of atrial fibrillation Other postprocedural status Primary hypertension Unspecified essential hypertension NICM (nonischemic cardiomyopathy) (HCC) Other primary cardiomyopathies [facility] Diagnosis Kidney replaced by transplant Need for prophylactic immunotherapy [facility]* Diagnosis Atrial fibrillation, persistent (HCC)- Primary Atrial fibrillation [facility] Diagnosis 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) Kidney replaced by transplant Need for prophylactic immunotherapy documented in this encounter [facility] [facility] note* Diagnosis Cardiomyopathy, unspecified type (HCC) Aneurysm of ascending aorta without rupture documented in this encounter [facility] note* Diagnosis PAF (paroxysmal atrial fibrillation) (HCC)- Primary Atrial fibrillation Other cardiomyopathy (HCC) Aneurysm of ascending aorta without rupture S/P ablation of atrial fibrillation Other postprocedural status documented in this encounter [facility] for referral (narrative)* Outpatient Procedure (Routine) - Pending Review Specialty Diagnoses / Procedures Referred By La martin Referred To Contact [facility] Diagnoses Encounter for observation for other suspected diseases and conditions ruled out Procedures PROSTATE BIOPSY GUKI PROSTATE NEEDLE BIOPSY ANY APPROACH US, TRANSRECTAL URNLS DIP STICK/TABLET RGNT AUTO W/O MICROSCOPY US GUIDANCE NEEDLE PLACEMENT IMG S&I Giorgio Burks MD [address] [place] [address] [facility] [address] [place] [address] Referral ID Status Reason Start Date Expiration Date Visits Requested Visits Authorized [id number] Pending Review Auto-Generat ed Referral 09/19/2022 09/19/2023 1 1 * MRI/CT (Routine) - Pending Review Specialty Diagnoses / Procedures Referred By Contac t Referred To Contact [facility] Diagnoses Encounter for observation for other suspected diseases and conditions ruled out Procedures MRI PROSTATE WO/W IVCON MRI PELVIS W/O & W/CONTRAST MATERIAL Giorgio Burks MD [address] [place] [address] [facility] Referral ID Status Reason Start Date Expiration Date Visits Requested Visits Authorized [id number] Pending Review Auto-Generat ed Referral 09/19/2022 10/19/2023 1 1 [facility] for referral (narrative)* Outpatient Procedure (Routine) - Pending Review Specialty Diagnoses / Procedures Referred By [facility] Referred To [facility] Diagnoses AF (paroxysmal atrial fibrillation) (HCC) Procedures ECG COMPLETE ECG ROUTINE ECG W/LEAST 12 LDS W/I&[place] [address] [place] [address] [facility] [address] [address] Referral ID Status Reason Start Date Expiration Date Visits Requested Visits Authorized [id number] Pending Review Auto-Generat ed Referral 01/15/2024 01/14/2025 1 1 [facility] for referral (narrative)* Diagnostic Procedure Only (Routine) - Pending Review Specialty Diagnoses / Procedures Referred By Contac t Referred To Contact [facility] Diagnoses Persistent atrial fibrillation (HCC) Abnormal EKG S/P ablation of atrial fibrillation Procedures NM PET/CT CARDIAC PERF REST/STRESS MYOCRD IMG PET PRFUJ INSURANCE CLAIMS CLERK STD RST & STRS CNCRNT CT Emanuel Scott MD [address] [place] [address] [facility] [address] [place] [id number] Referral ID Status Reason Start Date Expiration Date Visits Requested Visits Authorized [id number] Pending Review Auto-Generat ed Referral 03/12/2024 04/11/2025 1 1 * Outpatient Procedure (Routine) - Pending Review Specialty Diagnoses / Procedures Referred By Contac t Referred To [facility] Diagnoses Persistent atrial fibrillation (HCC) Abnormal EKG Procedures ECG COMPLETE ECG ROUTINE ECG W/LEAST 12 LDS W/I&R Emanuel Scott MD [address] [place] [address] [facility] [address] [place] [address] Referral ID Status Reason Start Date Expiration Date Visits Requested Visits Authorized [id number] Pending Review Auto-Generat ed Referral 03/12/2024 03/12/2025 1 1 [facility] for referral (narrative)* Diagnostic Procedure Only (Routine) - Pending Review Specialty Diagnoses / Procedures Referred By La martin Referred To Contact [facility] Diagnoses Heart disease Procedures NM PET/CT CARDIAC VIABILITY MYOCRD IMG PET PRFUJ W/METAB 2RTRACER CNCRNT CT Emanuel Scott MD [address] [place] [address] [facility] [address] [place] [id number] Referral ID Status Reason Start Date Expiration Date Visits Requested Visits Authorized [id number] Pending Review Auto-Generat ed Referral 03/12/2024 04/11/2025 1 1 [facility] for referral (narrative)* Outpatient Procedure (Routine) - New Request Specialty Diagnoses / Procedures Referred By [facility] Referred To Contact [facility] Diagnoses Atrial fibrillation, persistent (HCC) AF (paroxysmal atrial fibrillation) (HCC) SVT (supraventricular tachycardia) (HCC) PVC (premature ventricular contraction) VT (ventricular tachycardia) (HCC) Procedures ECG COMPLETE ECG ROUTINE ECG W/LEAST 12 LDS W/I&R Melisa Briceño APRN.CNP [address] [place] [address] [address] Referral ID Status Reason Start Date Expiration Date Visits Requested Visits Authorized [id number] New Request Auto-Generat ed Referral 03/18/2024 03/18/2025 1 1 [facility] for referral (narrative)* Outpatient Procedure (Routine) - Authorized Specialty Diagnoses / Procedures Referred By Contac t Referred To Contact [facility] Diagnoses Cardiomyopathy, unspecified type (HCC) 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) Procedures ECHO ECHO TTHRC R-T 2D W/WOM-MODE COMPL SPEC&COLR D Emanuel Scott MD [address] [place] [address] [address] Referral ID Status Reason Start Date Expiration Date Visits Requested Visits Authorized [id number] Authorized Auto-Generat ed Referral 01/24/2025 07/27/2025 1 1 [facility] for visit Narrative* Diagnostic Procedure Only (Routine) - Closed Specialty Diagnoses / Procedures Referred By [facility] Referred To Contact [facility] Diagnoses Persistent atrial fibrillation (HCC) Abnormal EKG Procedures NM CARDIAC PERF STRESS/PHARM MYOCARDIAL SPECT MULTIPLE STUDIES Emanuel Scott MD [address] [place] [address] [facility] [address] [place] [phone] Referral ID Status Reason Start Date Expiration Date V isits Requested Visits Authorized [id number] Closed Auto-Generate d Referral 11/10/2023 12/09/2024 1 1 [facility] for visit Narrative* Outpatient Procedure (Routine) - Pending Review Specialty Diagnoses / Procedures Referred By Contac t Referred To Contact [facility] Diagnoses Irregular heartbeat Procedures ECG COMPLETE ECG ROUTINE ECG W/LEAST 12 LDS W/I&R Usman Lowry APRN.[employer] SALES REPRESENTATIVE [address] [place] [address] [place] [phone] Referral ID Status Reason Start Date Expiration Date Visits Requested Visits Authorized [id number] Pending Review Auto-Generat ed Referral 06/29/2024 1 1 [facility] for visit Narrative* Outpatient Procedure (Routine) - Closed Specialty Diagnoses / Procedures Referred By Contac t Referred To Contact [facility] Diagnoses Cardiomyopathy, unspecified type (HCC) Aneurysm of ascending aorta without rupture Procedures ECHO ECHO TTHRC R-T 2D W/WOM-MODE COMPL SPEC&COLR D Emanuel Scott MD [address] [place] [address] Phone: tel: fax: [place] [phone] Referral ID Status Reason Start Date Expiration Date V isits Requested Visits Authorized [id number] Closed Auto-Generate d Referral 01/24/2025 07/27/2025 1 1 [facility] Summary Purpose Family History No Family History Records FoundNo Family History Records FoundNo Family History Records FoundNo Family History Records Found Advance Directives No Advanced Directives Records FoundDocuments on File Type Date Recorded 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 Advance Directive(s) Reason for Referral Specialty Diagnoses / Procedures Referred By Contac t Referred To Contact Cardiology Diagnoses Atrial fibrillation by electrocardiogram (HCC) Procedures CONSULT TO CARDIOLOGY OFFICE/OUTPATIENT NEW HIGH MDM 60-74 MINUTES Usman Lowry DIAMOND POWDER MIXER.[employer] SALES REPRESENTATIVE [address] [place] [address] Referral ID Status Reason Start Date Expiration Date Visits Requested Visits Authorized [id number] Authorized PCP Requested Referral 07/11/2023 07/10/2024 1 1 Specialty Diagnoses / Procedures Referred By La t Referred To Contact Diagnoses Persistent atrial fibrillation (HCC) Procedures CONSULT TO ELECTROPHYSIOLOGY OFFICE/OUTPATIENT [facility] HIGH MDM [address] [place] [address] [place] [address] Referral ID Status Reason Start Date Expiration Date Visits Requested Visits Authorized [id number] Authorized PCP Requested Referral 11/10/2023 11/09/2024 1 1 Specialty Diagnoses / Procedures Referred By La t Referred To Contact [facility] Diagnoses Persistent atrial fibrillation (HCC) Abnormal EKG Procedures NM CARDIAC PERF STRESS/PHARM MYOCARDIAL SPECT MULTIPLE STUDIES Emanuel Scott MD [address] [place] [address] [facility] [address] [place] [address] Referral ID Status Reason Start Date Expiration Date Visits Requested Visits Authorized [id number] Authorized Auto-Generat ed Referral 11/10/2023 12/09/2024 1 1 Specialty Diagnoses / Procedures Referred By La t Referred To Contact [facility] Diagnoses Persistent atrial fibrillation (HCC) Abnormal EKG Procedures ECG COMPLETE ECG ROUTINE ECG W/LEAST 12 LDS W/I&R Emanuel Scott MD [address] [place] [address] [facility] [address] [place] [address] Referral ID Status Reason Start Date Expiration Date Visits Requested Visits Authorized [id number] Pending Review Auto-Generat ed Referral 11/10/2023 11/09/2024 1 1 Additional Source Comments (unrecognized sect ion and content) No Status Records FoundNo Status Records FoundNo Status Records FoundNo Status Records Found INFORMATION SOURCE (unrecogn ized section and content) DATE CREATED AUTHOR 09/26/2021 [facility] DATE CREATED AUTHOR AUTHOR'S ORGANIZ ATION 04/22/2022 [facility] DATE CREATED AUTHOR AUTHOR'S ORGANIZ ATION 10/04/2024 [facility] DATE CREATED AUTHOR AUTHOR'S ORGANIZ ATION 01/25/2025 [facility] Source Comments (unrecognize d section and content) In the event this informatio n is protected by the Federal Confidentiality of Alcohol and Drug Abuse Patient Records regulations: The Federal rules restrict any use of the information to criminally investigate or prosecute any alcohol or drug abuse patient.[facility] the event this information is protected by the Federal Confidentiality of Alcohol and Drug Abuse Patient Records regulations: The Federal rules restrict any use of the information to criminally investigate or prosecute any alcohol or drug abuse patient.[facility] Hospital[facility] the event this information is protected by the Federal Confidentiality of Alcohol and Drug Abuse Patient Records regulations: The Federal rules restrict any use of the information to criminally investigate or prosecute any alcohol or drug abuse patient.[facility] Hospital[facility] the event this information is protected by the Federal Confidentiality of Alcohol and Drug Abuse Patient Records regulations: The Federal rules restrict any use of the information to criminally investigate or prosecute any alcohol or drug abuse patient.[facility] Hospital[facility] the event this information is protected by the Federal Confidentiality of Alcohol and Drug Abuse Patient Records regulations: The Federal rules restrict any use of the information to criminally investigate or prosecute any alcohol or drug abuse patient.[facility] Hospital[facility] the event this information is protected by the Federal Confidentiality of Alcohol and Drug Abuse Patient Records regulations: The Federal rules restrict any use of the information to criminally investigate or prosecute any alcohol or drug abuse patient.[facility] HospitalIn the event this information is protected by the Federal Confidentiality of Alcohol and Drug Abuse Patient Records regulations: The Federal rules restrict any use of the information to criminally investigate or prosecute any alcohol or drug abuse patient.[facility] HospitalIn the event this information is protected by the Federal Confidentiality of Alcohol and Drug Abuse Patient Records regulations: The Federal rules restrict any use of the information to criminally investigate or prosecute any alcohol or drug abuse patient.[facility] HospitalIn the event this information is protected by the Federal Confidentiality of Alcohol and Drug Abuse Patient Records regulations: The Federal rules restrict any use of the information to criminally investigate or prosecute any alcohol or drug abuse patient.[facility] HospitalIn the event this information is protected by the Federal Confidentiality of Alcohol and Drug Abuse Patient Records regulations: The Federal rules restrict any use of the information to criminally investigate or prosecute any alcohol or drug abuse patient.[facility] HospitalIn the event this information is protected by the Federal Confidentiality of Alcohol and Drug Abuse Patient Records regulations: The Federal rules restrict any use of the information to criminally investigate or prosecute any alcohol or drug abuse patient.[facility] HospitalIn the event this information is protected by the Federal Confidentiality of Alcohol and Drug Abuse Patient Records regulations: The Federal rules restrict any use of the information to criminally investigate or prosecute any alcohol or drug abuse patient.[facility] HospitalIn the event this information is protected by the Federal Confidentiality of Alcohol and Drug Abuse Patient Records regulations: The Federal rules restrict any use of the information to criminally investigate or prosecute any alcohol or drug abuse patient.[facility] HospitalIn the event this information is protected by the Federal Confidentiality of Alcohol and Drug Abuse Patient Records regulations: The Federal rules restrict any use of the information to criminally investigate or prosecute any alcohol or drug abuse patient.[facility] HospitalIn the event this information is protected by the Federal Confidentiality of Alcohol and Drug Abuse Patient Records regulations: The Federal rules restrict any use of the information to criminally investigate or prosecute any alcohol or drug abuse patient.[facility] HospitalIn the event this information is protected by the Federal Confidentiality of Alcohol and Drug Abuse Patient Records regulations: The Federal rules restrict any use of the information to criminally investigate or prosecute any alcohol or drug abuse patient.[facility] HospitalIn the event this information is protected by the Federal Confidentiality of Alcohol and Drug Abuse Patient Records regulations: The Federal rules restrict any use of the information to criminally investigate or prosecute any alcohol or drug abuse patient.[facility] HospitalIn the event this information is protected by the Federal Confidentiality of Alcohol and Drug Abuse Patient Records regulations: The Federal rules restrict any use of the information to criminally investigate or prosecute any alcohol or drug abuse patient.[facility] HospitalIn the event this information is protected by the Federal Confidentiality of Alcohol and Drug Abuse Patient Records regulations: The Federal rules restrict any use of the information to criminally investigate or prosecute any alcohol or drug abuse patient.[facility] HospitalIn the event this information is protected by the Federal Confidentiality of Alcohol and Drug Abuse Patient Records regulations: The Federal rules restrict any use of the information to criminally investigate or prosecute any alcohol or drug abuse patient.[facility] HospitalIn the event this information is protected by the Federal Confidentiality of Alcohol and Drug Abuse Patient Records regulations: The Federal rules restrict any use of the information to criminally investigate or prosecute any alcohol or drug abuse patient.[facility] HospitalIn the event this information is protected by the Federal Confidentiality of Alcohol and Drug Abuse Patient Records regulations: The Federal rules restrict any use of the information to criminally investigate or prosecute any alcohol or drug abuse patient.[facility] HospitalIn the event this information is protected by the Federal Confidentiality of Alcohol and Drug Abuse Patient Records regulations: The Federal rules restrict any use of the information to criminally investigate or prosecute any alcohol or drug abuse patient.[facility] HospitalIn the event this information is protected by the Federal Confidentiality of Alcohol and Drug Abuse Patient Records regulations: The Federal rules restrict any use of the information to criminally investigate or prosecute any alcohol or drug abuse patient.[facility] HospitalIn the event this information is protected by the Federal Confidentiality of Alcohol and Drug Abuse Patient Records regulations: The Federal rules restrict any use of the information to criminally investigate or prosecute any alcohol or drug abuse patient.[facility] HospitalIn the event this information is protected by the Federal Confidentiality of Alcohol and Drug Abuse Patient Records regulations: The Federal rules restrict any use of the information to criminally investigate or prosecute any alcohol or drug abuse patient.[facility] HospitalIn the event this information is protected by the Federal Confidentiality of Alcohol and Drug Abuse Patient Records regulations: The Federal rules restrict any use of the information to criminally investigate or prosecute any alcohol or drug abuse patient.[facility] HospitalIn the event this information is protected by the Federal Confidentiality of Alcohol and Drug Abuse Patient Records regulations: The Federal rules restrict any use of the information to criminally investigate or prosecute any alcohol or drug abuse patient.[facility] HospitalIn the event this information is protected by the Federal Confidentiality of Alcohol and Drug Abuse Patient Records regulations: The Federal rules restrict any use of the information to criminally investigate or prosecute any alcohol or drug abuse patient.[facility] HospitalIn the event this information is protected by the Federal Confidentiality of Alcohol and Drug Abuse Patient Records regulations: The Federal rules restrict any use of the information to criminally investigate or prosecute any alcohol or drug abuse patient.[facility] HospitalIn the event this information is protected by the Federal Confidentiality of Alcohol and Drug Abuse Patient Records regulations: The Federal rules restrict any use of the information to criminally investigate or prosecute any alcohol or drug abuse patient.[facility] HospitalIn the event this information is protected by the Federal Confidentiality of Alcohol and Drug Abuse Patient Records regulations: The Federal rules restrict any use of the information to criminally investigate or prosecute any alcohol or drug abuse patient.[facility] HospitalIn the event this information is protected by the Federal Confidentiality of Alcohol and Drug Abuse Patient Records regulations: The Federal rules restrict any use of the information to criminally investigate or prosecute any alcohol or drug abuse patient.[facility] HospitalIn the event this information is protected by the Federal Confidentiality of Alcohol and Drug Abuse Patient Records regulations: The Federal rules restrict any use of the information to criminally investigate or prosecute any alcohol or drug abuse patient.[facility] HospitalIn the event this information is protected by the Federal Confidentiality of Alcohol and Drug Abuse Patient Records regulations: The Federal rules restrict any use of the information to criminally investigate or prosecute any alcohol or drug abuse patient.[facility] HospitalIn the event this information is protected by the Federal Confidentiality of Alcohol and Drug Abuse Patient Records regulations: The Federal rules restrict any use of the information to criminally investigate or prosecute any alcohol or drug abuse patient.[facility] HospitalIn the event this information is protected by the Federal Confidentiality of Alcohol and Drug Abuse Patient Records regulations: The Federal rules restrict any use of the information to criminally investigate or prosecute any alcohol or drug abuse patient.[facility] HospitalIn the event this information is protected by the Federal Confidentiality of Alcohol and Drug Abuse Patient Records regulations: The Federal rules restrict any use of the information to criminally investigate or prosecute any alcohol or drug abuse patient.[facility] HospitalIn the event this information is protected by the Federal Confidentiality of Alcohol and Drug Abuse Patient Records regulations: The Federal rules restrict any use of the information to criminally investigate or prosecute any alcohol or drug abuse patient.[facility] HospitalIn the event this information is protected by the Federal Confidentiality of Alcohol and Drug Abuse Patient Records regulations: The Federal rules restrict any use of the information to criminally investigate or prosecute any alcohol or drug abuse patient.[facility] HospitalIn the event this information is protected by the Federal Confidentiality of Alcohol and Drug Abuse Patient Records regulations: The Federal rules restrict any use of the information to criminally investigate or prosecute any alcohol or drug abuse patient.[facility] HospitalIn the event this information is protected by the Federal Confidentiality of Alcohol and Drug Abuse Patient Records regulations: The Federal rules restrict any use of the information to criminally investigate or prosecute any alcohol or drug abuse patient.[facility] HospitalIn the event this information is protected by the Federal Confidentiality of Alcohol and Drug Abuse Patient Records regulations: The Federal rules restrict any use of the information to criminally investigate or prosecute any alcohol or drug abuse patient.[facility] HospitalIn the event this information is protected by the Federal Confidentiality of Alcohol and Drug Abuse Patient Records regulations: The Federal rules restrict any use of the information to criminally investigate or prosecute any alcohol or drug abuse patient.[facility] HospitalIn the event this information is protected by the Federal Confidentiality of Alcohol and Drug Abuse Patient Records regulations: The Federal rules restrict any use of the information to criminally investigate or prosecute any alcohol or drug abuse patient.[facility] HospitalIn the event this information is protected by the Federal Confidentiality of Alcohol and Drug Abuse Patient Records regulations: The Federal rules restrict any use of the information to criminally investigate or prosecute any alcohol or drug abuse patient.[facility] HospitalIn the event this information is protected by the Federal Confidentiality of Alcohol and Drug Abuse Patient Records regulations: The Federal rules restrict any use of the information to criminally investigate or prosecute any alcohol or drug abuse patient.[facility] HospitalIn the event this information is protected by the Federal Confidentiality of Alcohol and Drug Abuse Patient Records regulations: The Federal rules restrict any use of the information to criminally investigate or prosecute any alcohol or drug abuse patient.[facility] HospitalIn the event this information is protected by the Federal Confidentiality of Alcohol and Drug Abuse Patient Records regulations: The Federal rules restrict any use of the information to criminally investigate or prosecute any alcohol or drug abuse patient.[facility] HospitalIn the event this information is protected by the Federal Confidentiality of Alcohol and Drug Abuse Patient Records regulations: The Federal rules restrict any use of the information to criminally investigate or prosecute any alcohol or drug abuse patient.[facility] HospitalIn the event this information is protected by the Federal Confidentiality of Alcohol and Drug Abuse Patient Records regulations: The Federal rules restrict any use of the information to criminally investigate or prosecute any alcohol or drug abuse patient.[facility] HospitalIn the event this information is protected by the Federal Confidentiality of Alcohol and Drug Abuse Patient Records regulations: The Federal rules restrict any use of the information to criminally investigate or prosecute any alcohol or drug abuse patient.[facility] HospitalIn the event this information is protected by the Federal Confidentiality of Alcohol and Drug Abuse Patient Records regulations: The Federal rules restrict any use of the information to criminally investigate or prosecute any alcohol or drug abuse patient.[facility] HospitalIn the event this information is protected by the Federal Confidentiality of Alcohol and Drug Abuse Patient Records regulations: The Federal rules restrict any use of the information to criminally investigate or prosecute any alcohol or drug abuse patient.[facility] Care Teams (unrecognized sec tion and content) Industrial Cleaner Relationship Specialty Start Date End Date Kathleen Sams PA-C [address] [place] [address] PCP - General Internal Medicine 07/06/18 Usman Lowry DIAMOND POWDER MIXER.HOSTESS PARTY SALES REPRESENTATIVE [address] [place] [address] Primary Staff Physician Nephrology 10/04/21 Industrial Cleaner Relationship Specialty Start Date End Date Kathleen Sams PA-C [address] [place] [address] PCP - General Internal Medicine 07/06/18 Usman Lowry, DIAMOND POWDER MIXER.HOSTESS PARTY SALES REPRESENTATIVE [address] [place] [address] Primary Staff Physician Nephrology 10/04/21 Industrial Cleaner Relationship Specialty Start Date End Date Kathleen Sams PA-C [address] [place] [address] PCP - General Internal Medicine 07/06/18 Usman Lowry, DIAMOND POWDER MIXER.HOSTESS PARTY SALES REPRESENTATIVE [address] [place] [address] Primary Staff Physician Nephrology 10/04/21 Industrial Cleaner Relationship Specialty Start Date End Date Kathleen Sams PA-C [address] [place] [address] PCP - General Internal Medicine 07/06/18 Usman Lowry, DIAMOND POWDER MIXER.HOSTESS PARTY SALES REPRESENTATIVE [address] [place] [address] Primary Staff Physician Nephrology 10/04/21 Industrial Cleaner Relationship Specialty Start Date End Date Kathleen Sams PA-C [address] [place] [address] PCP - General Internal Medicine 07/06/18 Usman Lowry, DIAMOND POWDER MIXER.HOSTESS PARTY SALES REPRESENTATIVE [address] [place] [address] Primary Staff Physician Nephrology 10/04/21 Industrial Cleaner Relationship Specialty Start Date End Date Kathleen Sams PA-C [address] [place] [address] PCP - General Internal Medicine 07/06/18 Usman Lowry, DIAMOND POWDER MIXER.HOSTESS PARTY SALES REPRESENTATIVE [address] [place] [address] Primary Staff Physician Nephrology 10/04/21 Industrial Cleaner Relationship Specialty Start Date End Date Kathleen Sams PA-C [address] [place] [address] PCP - General Internal Medicine 07/06/18 Usman Lowry, DIAMOND POWDER MIXER.HOSTESS PARTY SALES REPRESENTATIVE [address] [place] [address] Primary Staff Physician Nephrology 10/04/21 Industrial Cleaner Relationship Specialty Start Date End Date Kathleen Sams PA-C [address] [place] [address] PCP - General Internal Medicine 07/06/18 Usman Lowry, DIAMOND POWDER MIXER.HOSTESS PARTY SALES REPRESENTATIVE [address] [place] [address] Primary Staff Physician Nephrology 10/04/21 Industrial Cleaner Relationship Specialty Start Date End Date Kathleen Sams PA-C [address] [place] [address] PCP - General Internal Medicine 07/06/18 Usman Lowry, DIAMOND POWDER MIXER.HOSTESS PARTY SALES REPRESENTATIVE [address] [place] [address] Primary Staff Physician Nephrology 10/04/21 Industrial Cleaner Relationship Specialty Start Date End Date Kathleen Sams PA-C [address] [place] [address] PCP - General Internal Medicine 07/06/18 Usman Lowry, DIAMOND POWDER MIXER.HOSTESS PARTY SALES REPRESENTATIVE [address] [place] [address] Primary Staff Physician Nephrology 10/04/21 Industrial Cleaner Relationship Specialty Start Date End Date Kathleen Sams PA-C [address] [place] [address] PCP - General Internal Medicine 07/06/18 Usman Lowry, DIAMOND POWDER MIXER.HOSTESS PARTY SALES REPRESENTATIVE [address] [place] [address] Primary Staff Physician Nephrology 10/04/21 Industrial Cleaner Relationship Specialty Start Date End Date Kathleen Sams PA-C [address] [place] [address] PCP - General Internal Medicine 07/06/18 Usman Lowry, DIAMOND POWDER MIXER.HOSTESS PARTY SALES REPRESENTATIVE [address] [place] [address] Primary Staff Physician Nephrology 10/04/21 Industrial Cleaner Relationship Specialty Start Date End Date Kathleen Sams PA-C [address] [place] [address] PCP - General Internal Medicine 07/06/18 Usman Lowry, DIAMOND POWDER MIXER.HOSTESS PARTY SALES REPRESENTATIVE [address] [place] [address] Primary Staff Physician Nephrology 10/04/21 Industrial Cleaner Relationship Specialty Start Date End Date Kathleen Sams PA-C [address] [place] [address] PCP - General Internal Medicine 07/06/18 Usman Lowry, DIAMOND POWDER MIXER.HOSTESS PARTY SALES REPRESENTATIVE [address] [place] [address] Primary Staff Physician Nephrology 10/04/21 Industrial Cleaner Relationship Specialty Start Date End Date Kathleen Sams PA-C [address] [place] [address] PCP - General Internal Medicine 07/06/18 Usman Lowry, DIAMOND POWDER MIXER.HOSTESS PARTY SALES REPRESENTATIVE [address] [place] [address] Primary Staff Physician Nephrology 10/04/21 Industrial Cleaner Relationship Specialty Start Date End Date Kathleen Sams PA-C [address] [place] [address] PCP - General Internal Medicine 07/06/18 Usman Lowry, DIAMOND POWDER MIXER.HOSTESS PARTY SALES REPRESENTATIVE [address] [place] [address] Primary Staff Physician Nephrology 10/04/21 Industrial Cleaner Relationship Specialty Start Date End Date Kathleen Sams PA-C [address] [place] [address] PCP - General Internal Medicine 07/06/18 Usman Lowry, DIAMOND POWDER MIXER.HOSTESS PARTY SALES REPRESENTATIVE [address] [place] [address] Primary Staff Physician Nephrology 10/04/21 Industrial Cleaner Relationship Specialty Start Date End Date Kathleen Sams PA-C [address] [place] [address] PCP - General Internal Medicine 07/06/18 Usman Lowry, DIAMOND POWDER MIXER.HOSTESS PARTY SALES REPRESENTATIVE [address] [place] [address] Primary Staff Physician Nephrology 10/04/21 Industrial Cleaner Relationship Specialty Start Date End Date Kathleen Sams PA-C [address] [place] [address] PCP - General Internal Medicine 07/06/18 Usman Lowry, DIAMOND POWDER MIXER.HOSTESS PARTY SALES REPRESENTATIVE [address] [place] [address] Primary Staff Physician Nephrology 10/04/21 Industrial Cleaner Relationship Specialty Start Date End Date Kathleen Sams PA-C [address] [place] [address] PCP - General Internal Medicine 07/06/18 Usman Lowry, DIAMOND POWDER MIXER.HOSTESS PARTY SALES REPRESENTATIVE [address] [place] [address] Primary Staff Physician Nephrology 10/04/21 Industrial Cleaner Relationship Specialty Start Date End Date Kathleen Sams PA-C [address] [place] [address] PCP - General Internal Medicine 07/06/18 Usman Lowry, DIAMOND POWDER MIXER.HOSTESS PARTY SALES REPRESENTATIVE [address] [place] [address] Primary Staff Physician Nephrology 10/04/21 Industrial Cleaner Relationship Specialty Start Date End Date Kathleen Sams PA-C [address] [place], [place] 8[address] PCP - General Internal Medicine 07/06/18 Usman Lowry, DIAMOND POWDER MIXER.HOSTESS PARTY SALES REPRESENTATIVE [address] [place], [place] 48[address] Primary Staff Physician Nephrology 10/04/21 Industrial Cleaner Relationship Specialty Start Date End Date Kathleen Sams PA-C [address] [place], [place] [id number] PCP - General Internal Medicine 07/06/18 Usman Lowry, DIAMOND POWDER MIXER.HOSTESS PARTY SALES REPRESENTATIVE [address] [place] [address] Primary Staff Physician Nephrology 10/04/21 Industrial Cleaner Relationship Specialty Start Date End Date Kathleen Sams PA-C [address] [place], [place] 048[address] PCP - General Internal Medicine 07/06/18 Usman Lowry, DIAMOND POWDER MIXER.HOSTESS PARTY SALES REPRESENTATIVE [address] [place], [place] [id number] Primary Staff Physician Nephrology 10/04/21 Industrial Cleaner Relationship Specialty Start Date End Date Kathleen Sams PA-C [address] [facility] [place] [address] PCP - General Internal Medicine 07/06/18 Usman Lowry, DIAMOND POWDER MIXER.HOSTESS PARTY SALES REPRESENTATIVE [address] [place], [place] 7569395 Primary Staff Physician Nephrology 10/04/21 Industrial Cleaner Relationship Specialty Start Date End Date Kathleen Sams PA-C [address] [place], [place] [id number] PCP - General Internal Medicine 07/06/18 Usman Lowry, DIAMOND POWDER MIXER.HOSTESS PARTY SALES REPRESENTATIVE [address] [place], [place] [id number] Primary Staff Physician Nephrology 10/04/21 Industrial Cleaner Relationship Specialty Start Date End Date Kathleen Sams PA-C [address] [place], [place] [id number] PCP - General Internal Medicine 07/06/18 Usman Lowry, DIAMOND POWDER MIXER.HOSTESS PARTY SALES REPRESENTATIVE [address] [place] [address] Primary Staff Physician Nephrology 10/04/21 Industrial Cleaner Relationship Specialty Start Date End Date Kathleen Sams PA-C [address] [place], [place] [id number] PCP - General Internal Medicine 07/06/18 Usman Lowry, DIAMOND POWDER MIXER.HOSTESS PARTY SALES REPRESENTATIVE [address] [place], [place] 47050[address] Primary Staff Physician Nephrology 10/04/21 Industrial Cleaner Relationship Specialty Start Date End Date Kathleen Sams PA-C [address] [place], [place] [id number] PCP - General Internal Medicine 07/06/18 Usman Lowry DIAMOND POWDER MIXER.HOSTESS PARTY SALES REPRESENTATIVE [address] [place] [address] Primary Staff Physician Nephrology 10/04/21 Industrial Cleaner Relationship Specialty Start Date End Date Kathleen Sams PA-C [address] [place], [place] [id number] PCP - General Internal Medicine 07/06/18 Usman Lowry DIAMOND POWDER MIXER.HOSTESS PARTY SALES REPRESENTATIVE [address] [place], [place] 667[address]95 Primary Staff Physician Nephrology 10/04/21 Industrial Cleaner Relationship Specialty Start Date End Date Kathleen Sams PA-C [address] [place], [place] [id number] PCP - General Internal Medicine 07/06/18 Usman Lowry, DIAMOND POWDER MIXER.HOSTESS PARTY SALES REPRESENTATIVE [address] [place] [address] Primary Staff Physician Nephrology 10/04/21 Industrial Cleaner Relationship Specialty Start Date End Date Kathleen Sams PA-C [address] [place], [place] [id number] PCP - General Internal Medicine 07/06/18 Usman Lowry DIAMOND POWDER MIXER.HOSTESS PARTY SALES REPRESENTATIVE [address] [place], [place] 48050[address] Primary Staff Physician Nephrology 10/04/21 Industrial Cleaner Relationship Specialty Start Date End Date Kathleen Sams PA-C PCP - General Internal Medicine 07/06/18 Usman Lowry, DIAMOND POWDER MIXER.HOSTESS PARTY SALES REPRESENTATIVE [address] [place], [place] 8183295 Primary Staff Physician Nephrology 10/04/21 Industrial Cleaner Relationship Specialty Start Date End Date Kathleen Sams PA-C PCP - General Internal Medicine 07/06/18 Usman Lowry, DIAMOND POWDER MIXER.HOSTESS PARTY SALES REPRESENTATIVE [address] [place], [place] [id number] Primary Staff Physician Nephrology 10/04/21 Industrial Cleaner Relationship Specialty Start Date End Date Kathleen Sams PA-C PCP - General Internal Medicine 07/06/18 Usman Lowry, DIAMOND POWDER MIXER.HOSTESS PARTY SALES REPRESENTATIVE [address] [place], [place] [id number] Primary Staff Physician Nephrology 10/04/21 Industrial Cleaner Relationship Specialty Start Date End Date Kathleen Sams PA-C PCP - General Internal Medicine 07/06/18 Usman Lowry, DIAMOND POWDER MIXER.HOSTESS PARTY SALES REPRESENTATIVE [address] [place], [place] 7075695 Primary Staff Physician Nephrology 10/04/21 Industrial Cleaner Relationship Specialty Start Date End Date Kathleen Sams PA-C PCP - General Internal Medicine 07/06/18 Usman Lowry, DIAMOND POWDER MIXER.HOSTESS PARTY SALES REPRESENTATIVE [address] [place] [address] Primary Staff Physician Nephrology 10/04/21 Industrial Cleaner Relationship Specialty Start Date End Date Kathleen Sams PA-C PCP - General Internal Medicine 07/06/18 Usman Lowry, DIAMOND POWDER MIXER.HOSTESS PARTY SALES REPRESENTATIVE [address] [place], [place] [id number] Primary Staff Physician Nephrology 10/04/21 Reason for [...] SPECT MULTIPLE STUDIES Emanuel Scott MD [address] [place] [address] Molecular & Functional Imaging [address] [place] [address] Referral ID Status Reason Start Date Expiration Date V isits Requested Visits Authorized [id number] Closed Auto-Generate d Referral 11/10/2023 12/09/2024 1 1 Reason Comments Atrial Fibrillation Reason Comments ED Follow-up Reason Comments Nm Pet Request Reason Onset Date Comments Clinical Update 03/11/2024 Reason Comments Follow Up Reason Onset Date Comments Refill Request 04/09/2024 Reason Onset Date Comments Follow Up Immunizations 07/06/2024 Flu vaccination Reason Onset Date Comments Results 08/30/2024 Reason Onset Date Comments Refill Request 10/18/2024 Reason Comments S/P Atrial fibrillation, persistent (HCC), S/P ablation of atrial fibrillation, S/p cadaver renal transplant, Current use of rn family anticoagulationPrimary hypertension Reason Onset Date Comments Refill Request 11/11/2024 FOR RECORDS PERTAINING TO PATIENTS WHO ARE [...] BE BASED ON THE PRIMARY CLINICAL RECORDS. [employer] provides no warranty or guarantee of the accuracy or completeness of information in this document.
--- OUTSIDE RECORDS SUMMARY | 2025-02-27 12:35 | XMS_ITS | Encounter Summary ---
Author Organization [facility] Address [address] [place] [address] Care Team Providers Care Oxygen System Tester Name Role Phone Sukhwinder Gill Primary Care Provider U Brendan Scott NP Primary Care Provider [phone] Arden Sams PA-C Primary Care Provider Mehnaz Lowry APRN.STRUCTURAL IRONWORKER Unavailable [phone] Source Comments In the event this information is protected by the Federal Confidentiality of Alcohol and Drug AbusePatient Records regulations: The Federal rules restrict any use of the information to criminally investigate or prosecute any alcohol or drug abuse patient.[facility] Encounter Details Date Type Department Care Team (Late st Contact Info) Description 02/03/2009 [facility] [address] [id number] Carolina Nevarez MD [address] [place] [address] Social History Tobacco Use Types Packs/Day Years Used Date Smoking Tobacco: Never Alcohol Use Standard Drinks/Week Comments No 0 (1 standard drink = 0.6 oz pure alcohol) no alcohol > 2 yrs, no previous hx of abuse Sex and Gender Information Value Date Recorded Sex Assigned at Male 01/25/2022 3:56 PM EDT Legal Sex Male 8:10 AM EST Gender Identity Male 01/25/2022 3:56 PM EDT Sexual Orientation Straight 01/25/2022 3: 57 PM EDT documented as of this encounter Plan of Treatment Upcoming Encounters Date Type Department Care Team (Late st Contact Info) Description 03/01/2025 9:15 AM EDT Office Visit [facility] [address] [place] [address] [place] [address] lab 08/26/2025 1:00 PM EST Office Visit Cardiology [address] [facility] [place] [address] Emanuel Whitten MD [address] [facility] [place] [id number] Return in about 7 months (around 08/26/2025). documented as of this encounter Visit Diagnoses Not on filedocumented in this encounter Care Teams Oxygen System Tester Relationship Specialty Start Date End Date Sukhwinder Gill PCP - General 05/14/07 07/06/17 Brendan Rivas NP [address] [facility] [address] PCP - General Family Medicine 07/07/17 07/05/18 Arden Sams PA-C [address] [facility] [address] PCP - General Internal Medicine 07/06/18 Mehnaz Lowry APRN.STRUCTURAL IRONWORKER [address] [place] [address] Primary Staff Physician Nephrology 10/04/21 documented as of this encounter
--- OUTSIDE RECORDS SUMMARY | 2025-02-27 12:35 | XMS_ITS ---
Author Organization [facility] ([facility]) Address [address] [place] [address] Care Team Providers Care Jboss Architect Name Role Phone Unavailable Unavailable Unavailable Allergies, Adverse Reactions, Alerts This patient has no known allergies or adverse reactions. Problems This patient has no known problems.
--- OUTSIDE RECORDS SUMMARY | 2025-02-27 12:35 | XMS_ITS | Patient Health Record ---
Author Organization [facility] [place] Address [address] [place] [address] Care Team Providers Care Jumpbasting Lining Baster Name Role Phone None, Unknown or Primary Care Provider Unavailab Chrissy Vazquez Unavailable [phone] Allergies No Known Allergies Results Component Value Reference Range Notes XR foot LT min 3V (Not yet r eviewed by provider) Interpretation: Performing Lab: Notes/Report: Source Facility: [place] [address] XRay Report Signed Patient: LINK ROSEN MR#: [id number] : 1955 Acct:[id number] Age/Sex: 68 / M ADM Date: 05/18/24 Loc: EC Attending Dr: Chrissy Keyes D.P.M. Ordering Physician: Chrissy Keyes D.P.M. Date of Service: 05/18/24 Procedure(s): XR foot LT min 3V Accession Number(s): [id number] cc: Chrissy Keyes D.P.M.; Physician,Non-Staff Arianna [place] [address] Patient Name: LINK ROSEN MRN: [id number] date: 1955 Sex: M Assigned Patient Location: EC Current Patient Location: Accession/Order Number: [id number] Exam Date: 05/18/2024 12:55 Report Date: 05/19/2024 08:46 At the request of: CHRISSY KEYES Procedure: XR foot LT min 3V PROCEDURE: XR ankle LT min 3V, XR foot LT min 3V COMPARISON: 01/30/2022 HISTORY: LEFT ANKLE PAIN FINDINGS: BONES:Stable ankle fusion utilizing intramedullary nail and proximally and distally. Bony fusion across the tibiotalar joint with no bony bridging across the talocalcaneal joint. Extensive enthesopathic spurring of the calcaneus at the Achilles and plantar insertions. Moderate to severe degenerative changes of the midfoot with joint space narrowing and marginal osteophyte formation. Fixation between the tibia and fibula SOFT TISSUES:Moderate diffuse soft tissue swelling EFFUSION:None visible. OTHER: Negative. XR/XR foot LT min 3V IMPRESSION: Stable fusion and degenerative changes Electronically authenticated by: MUSTAPHA BAUGH Date: 05/19/2024 08:46 Dictated By: Mustapha Baugh M.D. Signed By: 05/19/24847 DD/ 5 TD/TT: Historic Site Administrator: [place] [address] XRay Report Signed Patient: RAVI ROSEN MR#: [id number] : 1955 Acct:[id number] Age/Sex: 68 / M ADM Date: 05/18/24 Loc: EC Attending Dr: Chrissy Keyes D.P.M. Ordering Physician: Chrissy Keyes D.P.M. Date of Service: 05/18/24 Procedure(s): XR foot LT min 3V Accession Number(s): [id number] cc: Chrissy Keyes D.P.M.; Physician,Non-Staff Arianna [place] [id number] Patient Name: LINK ROSEN MRN: [id number] date: 1955 Sex: M Assigned Patient Location: EC Current Patient Location: Accession/Order Numb er: [id number] Exam Date: 05/18/2024 12:55 Report Date: 05/19/2024 08:46 At the request of: CHRISSY KEYES Procedure: XR foot LT min 3V PROCEDURE: XR ankle LT min 3V, XR foot LT min 3V COMPARISON: 01/30/2022 HISTORY: LEFT ANKLE PAIN FINDINGS: BONES:Stable ankle f usion utilizing intramedullary nail and proximally and distally. Bony fusio n across the tibiotalar joint with no bony bridging across the talocalcaneal jose int. Extensive enthesopathic spurring of the calcaneus at the Achilles and jose m ntar insertions. Moderate to severe degenerative changes of the midfoot with simeon nt space narrowing and marginal osteophyte formation. Fixation between the tibia and fibula SOFT TISSUES:Moderat e diffuse soft tissue swelling EFFUSION:None visible. OTHER: Negative. X R/XR foot LT min 3V IMPRESSION: Stable fusion and de generative changes Electronically authe nticated by: MUSTAPHA BAUGH Date: 05/19/2024 08:46 Dictated By: Mustapha Baugh M.D. Signed By: 05/19/24847 DD/ 5 TD/TT: Historic Site Administrator: XR ankle LT min 3V (Not yet reviewed by provider) Interpretation: Performing Lab: Notes/Report: Source Facility: [place] [address] XRay Report Signed Patient: LINK ROSEN MR#: [id number] : 1955 Acct:[id number] Age/Sex: 68 / M ADM Date: 05/18/24 Loc: EC Attending Dr: Chrissy Keyes D.P.M. Ordering Physician: Chrissy Keyes D.P.M. Date of Service: 05/18/24 Procedure(s): XR ankle LT min 3V Accession Number(s): [id number] cc: Chrissy Keyes D.P.M.; Physician,Non-Staff Arianna [facility] [place] [address] Patient Name: LINK ROSEN MRN: [id number] date: 1955 Sex: M Assigned Patient Location: Current Patient Location: Accession/Order Number: [id number] Exam Date: 05/18/2024 12:55 Report Date: 05/19/2024 08:46 At the request of: CHRISSY KEYES Procedure: XR ankle LT min 3V PROCEDURE: XR ankle LT min 3V, XR foot LT min 3V COMPARISON: 01/30/2022 HISTORY: LEFT ANKLE PAIN FINDINGS: BONES:Stable ankle fusion utilizing intramedullary nail and proximally and distally. Bony fusion across the tibiotalar joint with no bony bridging across the talocalcaneal joint. Extensive enthesopathic spurring of the calcaneus at the Achilles and plantar insertions. Moderate to severe degenerative changes of the midfoot with joint space narrowing and marginal osteophyte formation. Fixation between the tibia and fibula SOFT TISSUES:Moderate diffuse soft tissue swelling EFFUSION:None visible. OTHER: Negative. XR/XR ankle LT min 3V IMPRESSION: Stable fusion and degenerative changes Electronically authenticated by: MUSTAPHA BAUGH Date: 05/19/2024 08:46 Dictated By: Mustapha Baugh M.D. Signed By: 05/19/24847 DD/ 5 TD/TT: Historic Site Administrator: [place] [address] XRay Report Signed Patient: RAVI ROSEN MR#: [id number] : 1955 Acct:[id number] Age/Sex: 68 / M ADM Date: 05/18/24 Loc: EC Attending Dr: Chrissy Keyes D.P.M. Ordering Physician: Chrissy Keyes D.P.M. Date of Service: 05/18/24 Procedure(s): XR ank le LT min 3V Accession Number(s): [id number] cc: Chrissy Keyes D.P.M.; Physician,Non-Staff Arianna [facility] [place] [address] Patient Name: LINK ROSEN MRN: [id number] date: 1955 Sex: M Assigned Patient Location: EC Current Patient Location: Accession/Order Numb er: [id number] Exam Date: 05/18/2024 12:55 Report Date: 05/19/2024 08:46 At the request of: CHRISSY KEYES Procedure: XR ankle LT min 3V PROCEDURE: XR ankle LT min 3V, XR foot LT min 3V COMPARISON: 01/30/2022 HISTORY: LEFT ANKLE PAIN FINDINGS: BONES:Stable ankle f usion utilizing intramedullary nail and proximally and distally. Bony fusio n across the tibiotalar joint with no bony bridging across the talocalcaneal jose int. Extensive enthesopathic spurring of the calcaneus at the Achilles and jose m ntar insertions. Moderate to severe degenerative changes of the midfoot with simeon nt space narrowing and marginal osteophyte formation. Fixation between the tibia and fibula SOFT TISSUES:Moderat e diffuse soft tissue swelling EFFUSION:None visible. OTHER: Negative. X R/XR ankle LT min 3V IMPRESSION: Stable fusion and de generative changes Electronically authe nticated by: MUSTAPHA BAUGH Date: 05/19/2024 08:46 Dictated By: Mustapha Baugh M.D. 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) Referral Organization [facility] Referring Provider First Name Chrissy Referring Provider Last Name Stephy Referring Provider Speciality Podiatry Referred Provider TB, Physical Therap y Referred Provider Specialty Physical Med icine and Rehabilitation Referral Priority Routine Medications Medication SIG (Take, Route, Frequency, Duration) [...] Problem Status W/U Status Risk Notes Problem [id number] Lymphedema, not elsewhere classified (I89.0) Active confirmed Problem Pain in left ankle and joints of left foot (M25.572) Active confirmed Problem [id number] Sciatica, left side (M54.32) Active confirmed Problem 833743444 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) Active confirmed Vital Signs Heart Rate 87 /min 06/29/2024 Temperature 98.2 degrees Fahrenheit 06/29/2024 Oximetry 98 % 06/29/2024 Height 83.5 in 06/29/2024 Weight 350 lbs 06/29/2024 BMI 35.29 kg/m2 06/29/2024 Encounters Encounter Location Date Provider Diagnosis [facility] [address] [place] [address] [place] [address] 05/18/2024 Chrissy Keyes Varicose veins of left lower extremity with other complications I83.892 ; Lymphedema, not elsewhere classified I89.0 ; Sciatica, left side M54.32 and Pain in left ankle and joints of left foot M25.572 [facility] [address] [place] [address] [place] [address] 06/29/2024 Chrissy Paredesander Varicose veins of left lower extremity with [...] Lymphedema, not elsewhere classified (ICD-10 - I89.0) 06/29/2024 Varicose veins of left lower extremity [...] foot (ICD-10 - M25.572) Plan Of Treatment Pending Test Test Name Order Date XR Ankle LT (3 views) * (164) 05/18/2024 XR Foot LT (3 views) * 05/18/2024 XR foot LT min 3V 05/19/2024 XR ankle LT min 3V 05/19/2024 Insurance Providers Payer Name Payer Address Payer Phone Subscriber Number Group Number Insured Name Patient Relationship to Insured Coverage Start Date Coverage End Date [place] [address] [place] [address] [id number] Link Rosen Self - patient is the insured [employer] SU[employer] [address] [address] [facility] [address] [id number] Link Rosen Self - patient is the insured Medical (General) History Medical History History ICD Code arthritis charcot ankle left left trimalleolar fracture peripheral neuropathy varicose veins atrial fibrillation Surgical History Surgery Date(Month/Year) ORIF left trimalleolar
--- OUTSIDE RECORDS SUMMARY | 2025-02-27 12:35 | XMS_ITS | Patient Health Record ---
Author Organization [facility] Address [address] [place], [place] [address] Care Team Providers Care Special Education Para Professional Name Role Phone Jena Hunter Primary Care Provider Shanti Gee Unavailable [phone] Rachel Menjivar Unavailable [phone] Renae Bowen Unavailable Allergies No Known Allergies Reason For Referral No Information Medications Medication SIG (Take, Route, Frequency, Duration) Notes Start Date End Date Status Gabapentin 300 MG 1 capsule Orally Once a day for 90 days OARRS reviewed without issue Active Xarelto 20 MG 1 tablet with food Orally Once a day Active D3 Maximum Strength 125 MCG (5000 UT) as directed Orally Active Vgkmzwq-Urvbaxslg-Saex 500-250-12.5 MG 2 tablets Orally Once a day Active prednisoLONE 5 MG 1 tablet in the morning with food or milk Orally Once a day Active Mycophenolate Mofetil 250 MG 2 capsules Orally Twice a day Active Tacrolimus 1 MG 1 capsule Orally twice daily Active hydrOXYzine HCl 25 MG 1 tablet if needed Orally Once a day for 90 days every other day Active Metoprolol Succinate 50 MG 1 capsule Orally twice daily Active Cyclobenzaprine HCl 10 MG 1 tablet at bedtime as needed Orally Once a day for 30 days Active Immunizations Vaccine Route Administration Date Status Comme nts Influenza (split), 3 yrs and above Unknown 06/21/2020 A dministered Influenza virus vaccine, quadrivalent (IIV4), split virus, 0.25 mL dosage Unknown 07/05/2019 Administered Influenza virus vaccine, quadrivalent (IIV4), split virus, 0.25 mL dosage Unknown 07/03/2020 Administered Influenza virus vaccine, quadrivalent (IIV4), split virus, 0.25 mL dosage Unknown 07/05/2021 Administered Influenza, high-dose seasona l, quadrivalent, preservative free >65 yrs Unknown 07/01/2022 Administered Influenza, seasonal, injecta ble, preservative free, 6-35 months Unknown 06/20/2017 Administered Novel [id number]-[id number], preservative free Unknown 07/13/2009 Administered Social History Tobacco Use: Social History Observation Description Date Details (start date - stop date) Never Smoker NA - NA Sex Assigned At : Social History Observation Description Sex Assigned At Male Household Question Answer Notes Number of adults in household: 1 Tobacco Use/Smoking Question Answer Notes Tobacco use: nonsmoker patient enter ed data CAGE-AID Questionnaire (2018 Edition) Question Answer Notes Have you ever felt that you ought to cut down on your drinking or drug use? No patient entered data Have people annoyed you by c riticizing your drinking or drug use? No patient entered data Have you ever felt bad or gu ilty about your drinking or drug use? No patient entered data Have you ever had a drink or used drugs first thing in the morning to steady your nerves or to get rid of a hangover? No patient entered data CAGE-AID Score 0 Interpretation Negative PRAPARE Question Answer Notes Date Completed/Updated: 09/19/2023 radha nt entered data What is your current housing situation? I have housing patient entered data Are you worried about losing your housing? No patient entered data What is the highest level of school that you have finished? High school diploma or GED patient entered data What is your current work situation? Otherwise unemployed but not seeking work (ex. 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 Check all that apply I do not have problems meeting my needs Has lack of transportation k ept you from medical appointments, meetings, work or from getting things needed for daily living? No How often do you see or talk to people that you care about and feel close to? (For example: talking to friends on the phone, visiting friends or family, going to hoahaoism or club meetings) 3 to 5 times a week patient entered data How stressed are you? Stress is when someone feels tense, nervous, anxious, or can't sleep at night because their mind is troubled Not at all patient entered data In the past year have you sp ent more than 2 nights in a row in a usp, alf, group home center, or juvenile correctional facility? No patient entered data Are you a refugee? No patient en tered data What country are you from? [place] zainab duarte entered data Do you feel physically and emotionally safe where you currently live? Yes patient entered data In the past year, have you b een afraid of your partner or ex-partner? No patient entered data PRAPARE Score: 3 Problems Problem Type SNOMED Code ICD Code Onset Dates Problem Status W/U Status Risk Notes Problem 389155218 Morbid (severe) obesity due to excess calories (E66.01) Active confirmed Problem 013898315 Body mass index [BMI] 37.0-37.9, adult (Z68.37) Active confirmed Problem 34111214 Atrial fibrillation, unspecified type (I48.91) Active confirmed Problem Polycystic kidney disease (36533798) Polycystic kidney disease (Q61.3) Active confirmed Problem History of renal transplant (830272740) Status post kidney transplant (Z94.0) Active confirmed Problem Anxiety (13272391) Anxiety (F41.9) Active confirmed Comment:-pt has hx of anxiety -started towards the beginning of the year after hurt ankle. then made worse by COVID -had been getting better overall -usually only taking hydroxyzine once daily on average right now. and doing pretty well with that. -will c/w hydroxyzine as needed right now - instructed pt that he can continue and try to ween off if he feels comfortable -f/u in 6 months or sooner if needed, Problem Muscle spasm (94582150) Muscle spasm (M62.838) Active confirmed Comment:-pt has muscle spasm in low back right now at night -only since weather has changed -has taken flexeril in the past for this with success -will send at this time -f/u as needed if spasms do not resolve -increase water intake, Problem Neuropathy (875409118) Neuropathy (G62.9) Active confirmed Comment:-Bilmylene montes de ocal peripheral numbness/tingl ing -c/w gabapentin 300mg once nightly; was previously on 600mg. and 900mg before that - has been able to continue to ween down -tingling is getting better - has been to the chiropractor which has helped his neuropathy -Reviewed OARRS; no aberrant behaviors -f/u in 6 months or sooner if needed, Problem Peripheral edema (11763707) Peripheral edema (R60.9) Active confirmed Comment:-Perip heral edema -Currently wears OTC compression stockings which pt in content with -Has tried prescription stockings in the past but prefers his OTC ones -No obvious ulcerations -has been swelling very little lately according to pt -c/w OTC stockings at this time -no water pill in years -f/u in 6 months or sooner if any issues arise, Vital Signs Heart Rate 77 /min 09/06/2024 Alisha Silva 09/06/2024 10:46:52 AM EST > Temperature 97.8 degrees Fahrenheit 09/06/[address] [facility] 09/06/2024 10:46:52 AM EST > Respiratory Rate 18 /min 09/06/2024 Sonali Silva 09/06/2024 10:46:52 AM EST > Blood pressure diastolic 75 mm Hg 09/06/2024 [facility]/06[facility] 10:46:52 AM EST > Oximetry 98 % 09/06/2024 Alisha Silva 09/06/2024 10:46:52 AM EST > Height-cm 213.36 cm 09/06/2024 Alisha Silva 09/06/2024 10:46:52 AM EST > Weight-kg 171.37 kg 09/06/2024 Alisha Silva 09/06/2024 10:46:52 AM EST > Height 84.00 in 09/06/2024 Alisha Silva 09/06/2024 10:46:52 AM EST > Blood pressure systolic 110 mm Hg 09/06/2024 [facility] 09/06/2024 10:46:52 AM EST > Weight 377.8 lbs 09/06/2024 Alisha Silva 09/06/2024 10:46:52 AM EST > BMI 37.64 kg/m2 09/06/2024 Alisha Silva 09/06/2024 10:46:52 AM EST > Encounters Encounter Location Date Provider Diagnosis [address] [place], [place] [id number] 03/01/2024 Shanti Gee Anxiety F41.9 ; Peripheral edema R60.0 ; Peripheral neuropathic pain M79.2 ; Chronic back pain greater than 3 months duration M54.9 ; Hx of kidney transplant Z94.0 and Atrial fibrillation, unspecified type I48.91 [address] [place], [place] [id number] 05/21/2024 Jena Myerholtz Muscle spasm M62.838 ; Obesity, unspecified E66.9 and Body mass index [BMI] 38.0-38.9, adult Z68.38 [address] [place], [place] [id number] 09/06/2024 Jena Myerholtz Atrial fibrillation, unspecified type I48.91 ; Polycystic kidney disease Q61.3 ; Neuropathy G62.9 ; Anxiety F41.9 ; Muscle spasm M62.838 ; Obesity, class 2 E66.812 ; Morbid (severe) obesity due to excess calories E66.01 and Body mass index [BMI] 37.0-37.9, adult Z68.37 [address] [place] [address] 03/01/2024 Shanti Gee [address] [place], [place] [id number] 03/03/2024 Shanti Gee [address] [place], [place] [id number] 03/05/2024 Shanti Gee [address] [place] [id number] 04/14/2024 Shanti Gee [address] [place], [place] [id number] 04/15/2024 Shanti Gee Anxiety F41.9 [address] [place], [place] [id number] 04/16/2024 Shanti Gee [address] [facility] [place] [id number] 05/17/2024 Shanti Gee [address] [facility] [place] [id number] 09/06/2024 Rachel Menjivar [address] [facility] [place] [id number] 09/06/2024 Jena Hunter [address], [place] [id number] 12/13/2024 Jenameg Ariasholrosemarie Neuropathy G62.9 Assessments Encounter Date Diagnosis (ICD Code) Assessment Notes Treatment Notes Treatment Clinical Notes Section Notes 03/01/2024 Anxiety (ICD-10 - F41.9) States not currently taking but would like RX for qd prn use. 03/01/2024 Peripheral edema (ICD-10 - R60.0) Mild, stable per pt. Follows with nephrology and cardiology. 04/15/2024 Anxiety (ICD-10 - F41.9) 05/21/2024 Obesity, unspecified (ICD-10 - E66.9) Body Mass Index: Care Instructions material was published 05/21/2024 Muscle spasm (ICD-10 - M62.838) Pt is stable on current medications. Will continue current medications. F/u 3 months & PRN 09/06/2024 Atrial fibrillation, unspecified type (ICD-10 - I48.91) Pt to continue to f/u with Cardiology 09/06/2024 Polycystic kidney disease (ICD-10 - Q61.3) Pt to continue to f/u with Nephrology 12/13/2024 Neuropathy (ICD-10 - G62.9) 09/06/2024 Neuropathy (ICD-10 - G62.9) Pt is stable on current medications. Will continue current medications. F/u 6 months & PRN 05/21/2024 Body mass index [BMI] 38.0-38.9, adult (ICD-10 - Z68.38) 03/01/2024 Peripheral neuropathic pain (ICD-10 - M79.2) 03/01/2024 Chronic back pain greater than 3 months duration (ICD-10 - M54.9) Stable. Gabapentin as above. 09/06/2024 Anxiety (ICD-10 - F41.9) Anxiety stable. Will continue current medications. Advised pt if they are have suicidal or homicidal to call 911 or go to the ER. F/u 6 months & PRN 09/06/2024 Muscle spasm (ICD-10 - M62.838) Pt is stable on current medications. Will continue current medications. F/u 6 months & PRN 03/01/2024 Hx of kidney transplant (ICD-10 - Z94.0) [facility]. 03/01/2024 Atrial fibrillation, unspecified type (ICD-10 - I48.91) [facility]. 09/06/2024 Obesity, class 2 (ICD-10 - E66.812) 09/06/2024 Morbid (severe) obesity due to excess calories (ICD-10 - E66.01) 09/06/2024 Body mass index [BMI] 37.0-37.9, adult (ICD-10 - Z68.37) Body Mass Index: Care Instructions material was published Plan Of Treatment Next Appt Details Provider Name:Jena coronel, 02/28/2025 11:00:00 AM, [address] [place], [place], [id number], Insurance Providers Payer Name Payer Address Payer Phone Subscriber Number Group Number Insured Name Patient Relationship to Insured Coverage Start Date Coverage End Date Medicare NGS PPS [address] [place], [place] [id number] Nomi Rosen Self - patient is the insured 2 [employer] Medicare Supplement [address] [address] [place], [place] [id number] PLAN G Nomi Rosen Self - patient is the insured 2 Medical (General) History Medical History History ICD Code Neuropathy Peripheral edema Polycystic kidney, COMMENTS: -Had kidney transplant in 2008 Atrial fibrillation I48.91 Anxiety F41.9 Surgical History Surgery Date(Month/Year) Inguinal Hernia Repair Left ankle arthroscopy, COMMENTS: fusion 10/22/2019 DOUBLE KIDNEY TRANSPLANT 2009-04-08 biopsy
--- OUTSIDE RECORDS SUMMARY | 2025-02-27 12:36 | XMS_ITS | Encounter Summary ---
Author Organization [facility] Address [address] [place] [address] Care Team Providers Care Crew Trainer Name Role Phone Arden Sams PA-C Primary Care Provider Mehnaz Lowry APRN.MARKET SALES MANAGER Unavailable Source Comments In the event this information is protected by the Federal Confidentiality of Alcohol and Drug AbusePatient Records regulations: The Federal rules restrict any use of the information to criminally investigate or prosecute any alcohol or drug abuse patient.[facility] Reason for Visit * Reason Comments Refill Request Encounter Details Date Type Department Care Team (Late st Contact Info) Description 10/22/2024 Refill Kidney Medicine [facility] [address] [address] Mehnaz Lowry APRN.MARKET SALES MANAGER [address] [place] [address] Refill Request Social History Tobacco Use Types Packs/Day Years Used Date Smoking Tobacco: Never Smokeless Tobacco: Never Alcohol Use Standard Drinks/Week Comments No 0 (1 standard drink = 0.6 oz pure alcohol) no alcohol > 2 yrs, no previous hx of abuse Area Deprivation Index Answer Date Boris rded National Score (1-100), lower number is lower ri 62 09/20/2022 State Score (1-10), lower number is lower risk N ot on file 09/20/2022 Data from: https://www.neighborhoodatlas.medicine.[facility]/. Last address used for calculation [address] 09/20/2022 Sex and Gender Information Value Date Recorded Sex Assigned at Male 01/25/2022 3:56 PM EDT Legal Sex Male 8:10 AM EST Gender Identity Male 01/25/2022 3:56 PM EDT Sexual Orientation Straight 01/25/2022 3: 57 PM EDT documented as of this encounter Functional Status * Are you deaf or do you have serious difficulty hearing? Answer Date of Assessment Author No 03/06/2024 11:12 AM EDT Zhanna Lozada RN * Are you blind or do you have serious difficulty seeing, even when wearing glasses? Answer Date of Assessment Author No 03/06/2024 11:12 AM EDT Zhanna Lozada RN * Do you have serious difficulty walking or climbing stairs? Answer Date of Assessment Author No 03/06/2024 11:12 AM EDT Zhanna Lozada RN * Do you have difficulty dressing or bathing? Answer Date of Assessment Author No 03/06/2024 11:12 AM EDT Zhanna Lozada RN * Because of a physical, mental, or emotional condition, do you have difficulty doing errands alone such as visiting a doctor's office or shopping? Answer Date of Assessment Author No 03/06/2024 11:12 AM EDT Zhanna Lozada RN documented as of this encounter Mental Status * Because of a physical, mental, or emotional condition, do you have serious difficulty concentrating, remembering, or making decisions? Answer Entry Date Author No 03/06/2024 11:12 AM EDT Zhanna Lozada RN documented in this encounter Miscellaneous Notes * Telephone Encounter - HugoRandy - 10/25/2024 4:13 PM EST Haleigh 07/06/2024 Patient phones requesting refills as follows: Requested Prescriptions Pending Prescriptions Disp Refills tacrolimus IR (PROGRAF) 1 mg capsule [Pharmacy Med Name: TACROLIMUS 1MG CAPSULES] 180 capsule 3 Sig: TAKE 1 CAPSULE BY MOUTH TWICE A DAY Please review and advise. Randy Arias documented in this encounter Plan of Treatment Upcoming Encounters Date Type Department Care Team (Late st Contact Info) Description 03/01/2025 9:15 AM EDT Office Visit [facility] [address] [place] [address] [place] [address] lab 08/26/2025 1:00 PM EST Office Visit Cardiology [address] [facility] [place] [address] Emanuel Whitten MD [address] [facility] [place] [id number] Return in about 7 months (around 08/26/2025). documented as of this encounter Goals Goal Patient Goal Type Associated Problems Recent Progress Patient-Stated? Author Blood Pressure < 130/80 Blood Pressure 116/76( 025 2:56 PM EDT) No Amanda Ramirez MA documented as of this encounter Visit Diagnoses Diagnosis 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) Kidney replaced by transplant documented in this encounter Care Teams Crew Trainer Relationship Specialty Start Date End Date Arden Sams PA-C PCP - General Internal Medicine 07/06/18 Mehnaz Lowry APRN.MARKET SALES MANAGER [address] [place] [address] Primary Staff Physician Nephrology 10/04/21 documented as of this encounter
--- OUTSIDE RECORDS SUMMARY | 2025-02-27 12:36 | XMS_ITS | Encounter Summary ---
Author Organization [facility] Address [address] [place] [address] Care Team Providers Care Pharmacy Innovation Assistant Name Role Phone Arden Sams PA-C Primary Care Provider Mehnaz Lowry APRN.PRINT BINDING AND FINISHING WORKER Unavailable [phone] Source Comments In the event this information is protected by the Federal Confidentiality of Alcohol and Drug AbusePatient Records regulations: The Federal rules restrict any use of the information to criminally investigate or prosecute any alcohol or drug abuse patient.[facility] Encounter Details Date Type Department Care Team (Late st Contact Info) Description 2022 [place] [address] Provider, C[facility] Medicare Coverage of Physical Exams Social History Tobacco Use Types Packs/Day Years Used Date Smoking Tobacco: Never Smokeless Tobacco: Never Alcohol Use Standard Drinks/Week Comments No 0 (1 standard drink = 0.6 oz pure alcohol) no alcohol > 2 yrs, no previous hx of abuse Area Deprivation Index Answer Date Boris rded National Score (1-100), lower number is lower ri sk 62 01/25/2022 State Score (1-10), lower number is lower risk N ot on file 01/25/2022 Data from: https://www.neighborhoodatlas.medicine.[facility].edu/. Last address used for calculation [address] 01/25/2022 Sex and Gender Information Value Date Recorded Sex Assigned at Male 01/25/2022 3:56 PM EDT Legal Sex Male 8:10 AM EST Gender Identity Male 01/25/2022 3:56 PM EDT Sexual Orientation Straight 01/25/2022 3: 57 PM EDT COVID-19 Exposure Response Date Recorded In the last 10 days, have yo u been in contact with someone who was confirmed or suspected to have Coronavirus/COVID-19? No / Unsure 06/11/2022 9:46 AM EDT documented as of this encounter Functional Status * Are you deaf or do you have serious difficulty hearing? Answer Date of Assessment Author No 12/28/2014 12:34 PM EDT Tobi, V kalpana L (Animal Nutrition Consultant), SLEEPING ROOM CLEANER * Are you blind or do you have serious difficulty seeing, even when wearing glasses? Answer Date of Assessment Author No 12/28/2014 12:34 PM EDT Tobi, V kalpana L (Animal Nutrition Consultant), SLEEPING ROOM CLEANER * Do you have serious difficulty walking or climbing stairs? Answer Date of Assessment Author No 12/28/2014 12:34 PM EDT Tobi, V kalpana L (Animal Nutrition Consultant), SLEEPING ROOM CLEANER * Do you have difficulty dressing or bathing? Answer Date of Assessment Author No 12/28/2014 12:34 PM EDT Tobi, V kalpana L (Animal Nutrition Consultant), SLEEPING ROOM CLEANER * Because of a physical, mental, or emotional condition, do you have difficulty doing errands alone such as visiting a doctor's office or shopping? Answer Date of Assessment Author No 12/28/2014 12:34 PM EDT Tobi, V kalpana L (Animal Nutrition Consultant), SLEEPING ROOM CLEANER documented as of this encounter Mental Status * Because of a physical, mental, or emotional condition, do you have serious difficulty concentrating, remembering, or making decisions? Answer Entry Date Author No 12/28/2014 12:34 PM EDT Tobi, V kalpana L (Animal Nutrition Consultant), SLEEPING ROOM CLEANER documented in this encounter Plan of Treatment Upcoming Encounters Date Type Department Care Team (Late st Contact Info) Description 03/01/2025 9:15 AM EDT Office Visit [facility] [address] [place] [address] [place] [address] lab 08/26/2025 1:00 PM EST Office Visit Cardiology [address] [place], [place] [phone] Emanuel Whitten MD [address] [place], [place] [phone] Return in about 7 months (around 08/26/2025). documented as of this encounter Visit Diagnoses Not on filedocumented in this encounter Care Teams Pharmacy Innovation Assistant Relationship Specialty Start Date End Date Arden Sams PA-C PCP - General Internal Medicine 07/06/18 Mehnaz Lowry APRN.PRINT BINDING AND FINISHING WORKER [address] [place] [address] Primary Staff Physician Nephrology 10/04/21 documented as of this encounter
--- OUTSIDE RECORDS SUMMARY | 2025-02-27 12:36 | XMS_ITS | Encounter Summary ---
Author Organization [facility] Address [address] [place] [address] Care Team Providers Care Stripper And Printer Name Role Phone Sukhwinder Gill Primary Care Provider U Brendan Scott NP Primary Care Provider [phone] Arden Sams PA-C Primary Care Provider Mehnaz Lowry APRN.CASEWORK MANAGER Unavailable [phone] Source Comments In the event this information is protected by the Federal Confidentiality of Alcohol and Drug AbusePatient Records regulations: The Federal rules restrict any use of the information to criminally investigate or prosecute any alcohol or drug abuse patient.[facility] Encounter Details Date Type Department Care Team (Late st Contact Info) Description 05/05/2014 Patient Msg Medical Records [address] [place] [address] Provider, [facility]cf RE: Appointment Cancellation Request Social History Tobacco Use Types Packs/Day [...] Description 03/01/2025 9:15 AM EDT Office Visit [facility] [address] [place] [address] [place] [address] lab 08/26/2025 1:00 PM EST Office Visit Cardiology [address] [facility] [place] [address] Emanuel Whitten MD [address] [facility] [place] [address] Return in about 7 months (around 08/26/2025). documented as of this encounter Visit Diagnoses Not on filedocumented in this encounter Care Teams Stripper And Printer Relationship Specialty Start Date End Date Sukhwinder Gill PCP - General 05/14/07 07/06/17 Brendan Rivas NP [address] [place] [address] PCP - General Family Medicine 07/07/17 07/05/18 Arden Sams PA-C [address] [place] [address] PCP - General Internal Medicine 07/06/18 Mehnaz Lowry APRN.CASEWORK MANAGER [address] [place] [address] Primary Staff Physician Nephrology 10/04/21 documented as of this encounter
--- OUTSIDE RECORDS SUMMARY | 2025-02-27 12:36 | XMS_ITS | Encounter Summary ---
Author Organization [facility] Address [address] [place] [address] Care Team Providers Care Crude Oil Treater Name Role Phone Sukhwinder Gill Primary Care Provider U Brendan Scott NP Primary Care Provider Arden Sams PA-C Primary Care Provider Mehnaz Lowry APRN.DOCTOR PODIATRIC MEDICINE Unavailable [phone] Source Comments In the event this information is protected by the Federal Confidentiality of Alcohol and Drug AbusePatient Records regulations: The Federal rules restrict any use of the information to criminally investigate or prosecute any alcohol or drug abuse patient.[facility] Encounter Details Date Type Department Care Team (Late st Contact Info) Description 05/05/2014 Patient Msg Medical Records [address] [place] [address] Provider, Ccf RE: Appointment Cancellation Request Social [...] Description 03/01/2025 9:15 AM EDT Office Visit [facility] [address] [place] [address] [place] [address] lab 08/26/2025 1:00 PM EST Office Visit Cardiology [address] [facility] [address] Emanuel Whitten MD [address] [facility] [address] Return in about 7 months (around 08/26/2025). documented as of this encounter Visit Diagnoses Not on filedocumented in this encounter Care Teams Crude Oil Treater Relationship Specialty Start Date End Date Sukhwinder Gill PCP - General 05/14/07 07/06/17 Brendan Rivas NP [address] [place] [address] PCP - General Family Medicine 07/07/17 07/05/18 Arden Sams PA-C [address] [place] [address] PCP - General Internal Medicine 07/06/18 Mehnaz Lowry APRN.DOCTOR PODIATRIC MEDICINE [address] [place] [address] Primary Staff Physician Nephrology 10/04/21 documented as of this encounter
--- OUTSIDE RECORDS SUMMARY | 2025-02-27 12:36 | XMS_ITS | Encounter Summary ---
Author Organization [facility] Address [address] [place] [address] Care Team Providers Care Utility Worker Name Role Phone Arden Sams PA-C Primary Care Provider Mehnaz Lowry APRN.NEPHROLOGY SOCIAL WORKER Unavailable [phone] Source Comments In the event this information is protected by the Federal Confidentiality of Alcohol and Drug AbusePatient Records regulations: The Federal rules restrict any use of the information to criminally investigate or prosecute any alcohol or drug abuse patient.[facility] Encounter Details Date Type Department Care Team (Late st Contact Info) Description 12/23/2023 Patient Msg Nuclear Medicine [address] [place], [place] [id number] Provider, Ccf Instructions for NM Stress testing on 12/26/23 at 12:30 pm Social History Tobacco Use Types Packs/Day Years Used Date Smoking Tobacco: Never Smokeless Tobacco: Never Alcohol Use Standard Drinks/Week Comments No 0 (1 standard drink = 0.6 oz pure alcohol) no alcohol > 2 yrs, no previous hx of abuse Area Deprivation Index Answer Date Boris rded National Score (1-100), lower number is lower ri sk 62 09/20/2022 State Score (1-10), lower number is lower risk N ot on file 09/20/2022 Data from: https://www.neighborhoodatlas.[facility]/. Last address used for calculation [...] 12:34 PM EDT Tobi, V kalpana L (Visitor Services Information Assistant), INSULATING MACHINE OPERATOR * Are you blind or do you have serious difficulty seeing, even when wearing glasses? Answer Date of Assessment Author No 12/28/2014 12:34 PM EDT Tobi, V kalpana L (Visitor Services Information Assistant), INSULATING MACHINE OPERATOR * Do you have serious difficulty walking or climbing stairs? Answer Date of Assessment Author No 12/28/2014 12:34 PM EDT Tobi, V kalpana L (Visitor Services Information Assistant), INSULATING MACHINE OPERATOR * Do you have difficulty dressing or bathing? Answer Date of Assessment Author No 12/28/2014 12:34 PM EDT Tobi, V kalpana L (Visitor Services Information Assistant), INSULATING MACHINE OPERATOR * Because of a physical, mental, or emotional condition, do you have difficulty doing errands alone such as visiting a doctor's office or shopping? Answer Date of Assessment Author No 12/28/2014 12:34 PM EDT Tobi, V kalpana L (Visitor Services Information Assistant), INSULATING MACHINE OPERATOR documented as of this encounter Mental Status * Because of a physical, mental, or emotional condition, do you have serious difficulty concentrating, remembering, or making decisions? Answer Entry Date Author No 12/28/2014 12:34 PM EDT Tobi, V kalpana L (Visitor Services Information Assistant), INSULATING MACHINE OPERATOR documented in this encounter Plan of Treatment Upcoming Encounters Date Type Department Care Team (Late st Contact Info) Description 03/01/2025 9:15 AM EDT Office Visit [facility] [address] [place] [address] [place] [address] lab 08/26/2025 1:00 PM EST Office Visit Cardiology [address] [facility] [place] [address] Emanuel Whitten MD [address] [place], [place] [phone] Return in about 7 months (around 08/26/2025). documented as of this encounter Visit Diagnoses Not on filedocumented in this encounter Care Teams Utility Worker Relationship Specialty Start Date End Date Arden Sams PA-C PCP - General Internal Medicine 07/06/18 Mehnaz Lowry APRN.NEPHROLOGY SOCIAL WORKER [address] [place] [address] Primary Staff Physician Nephrology 10/04/21 documented as of this encounter
--- OUTSIDE RECORDS SUMMARY | 2025-02-27 12:36 | XMS_ITS | Encounter Summary ---
Author Organization [facility] Address [place] [address] Care Team Providers Care House Worker Name Role Phone Arden Sams PA-C Primary Care Provider Mehnaz Lowry APRN.CALL CENTER RECEPTIONIST Unavailable Source Comments In the event this information is protected by the Federal Confidentiality of Alcohol and Drug AbusePatient Records regulations: The Federal rules restrict any use of the information to criminally investigate or prosecute any alcohol or drug abuse patient.[facility] Encounter Details Date Type Department Care Team (Late st Contact Info) Description 01/22/2022 Get Medical Advice Urology [address] [place] [id number] Dorcas Haider, ALIGNMENT SPECIALIST.CALL CENTER RECEPTIONIST [address] [facility], [address] [place] [address] meds Social History Tobacco Use Types Packs/Day Years Used Date Smoking Tobacco: Never Smokeless Tobacco: Never Alcohol Use Standard Drinks/Week Comments No 0 (1 standard drink = 0.6 oz pure alcohol) no alcohol > 2 yrs, no previous hx of abuse Area Deprivation Index Answer Date Boris rded National Score (1-100), lower number is lower ri 62 01/25/2022 State Score (1-10), lower number is lower risk N ot on file 01/25/2022 Data from: https://www.neighborhoodatlas.medicine.[facility]/. Last address used for calculation [address] [...] suspected to have Coronavirus/COVID-19? No / Unsure 01/16/2022 9:51 AM EDT documented as of this encounter Functional Status * Are you deaf or do you have serious difficulty hearing? Answer Date of Assessment Author No 12/28/2014 12:34 PM EDT Tobi, V kalpana L (Dry Heat Room Attendant), FEED RESEARCH AIDE * Are you blind or do you have serious difficulty seeing, even when wearing glasses? Answer Date of Assessment Author No 12/28/2014 12:34 PM EDT Tobi, V kalpana L (Dry Heat Room Attendant), FEED RESEARCH AIDE * Do you have serious difficulty walking or climbing stairs? Answer Date of Assessment Author No 12/28/2014 12:34 PM EDT Tobi, V kalpana L (Dry Heat Room Attendant), FEED RESEARCH AIDE * Do you have difficulty dressing or bathing? Answer Date of Assessment Author No 12/28/2014 12:34 PM EDT Tobi, V kalpana L (Dry Heat Room Attendant), FEED RESEARCH AIDE * Because of a physical, mental, or emotional condition, do you have difficulty doing errands alone such as visiting a doctor's office or shopping? Answer Date of Assessment Author No 12/28/2014 12:34 PM EDT Tobi, V kalpana L (Dry Heat Room Attendant), FEED RESEARCH AIDE documented as of this encounter Mental Status * Because of a physical, mental, or emotional condition, do you have serious difficulty concentrating, remembering, or making decisions? Answer Entry Date Author No 12/28/2014 12:34 PM EDT Tobi, V kalpana L (Dry Heat Room Attendant), FEED RESEARCH AIDE documented in this encounter Plan of Treatment Upcoming Encounters Date Type Department Care Team (Late st Contact Info) Description 03/01/2025 9:15 AM EDT Office Visit [facility] [address] [facility] [place] [address] lab 08/26/2025 1:00 PM EST Office Visit Cardiology [address] [place], [place] [phone] Emanuel Whitten MD [address] [place], [place] [phone] Return in about 7 months (around 08/26/2025). documented as of this encounter Visit Diagnoses Not on filedocumented in this encounter Care Teams House Worker Relationship Specialty Start Date End Date Arden Sams PA-C PCP - General Internal Medicine 07/06/18 Mehnaz Lowry APRN.CALL CENTER RECEPTIONIST [address] [place] [address] Primary Staff Physician Nephrology 10/04/21 documented as of this encounter
--- OUTSIDE RECORDS SUMMARY | 2025-02-27 12:36 | XMS_ITS | Encounter Summary ---
Author Organization [facility] Address [address] [place] [address] Care Team Providers Care Timber Sprinkler Name Role Phone Arden Sams PA-C Primary Care Provider Mehnaz Lowry APRN.CLIENT SUPPORT ADMINISTRATOR Unavailable Source Comments In the event this information is protected by the Federal Confidentiality of Alcohol and Drug AbusePatient Records regulations: The Federal rules restrict any use of the information to criminally investigate or prosecute any alcohol or drug abuse patient.[facility] Encounter Details Date Type Department Care Team (Latest Contact Info) Description 02/22/2025 Travel Social History Tobacco Use Types Packs/Day Years [...] N ot on file 09/20/2022 Data from: https://www.neighborhoodatlas.medicine.[facility].edu/. Last address used for calculation [address] 09/20/2022 Sex and Gender Information [...] Zhanna Lozada RN documented in this encounter Plan of Treatment Upcoming Encounters Date Type Department Care Team (Late st Contact Info) Description 03/01/2025 9:15 AM EDT Office Visit [facility] [address] [place] [address] lab 08/26/2025 1:00 PM EST Office Visit Cardiology [address] [facility] [place] [phone] Emanuel Whitten MD [address] [facility] [place] [address] Return in about 7 months (around 08/26/2025). documented as of this encounter Goals Goal Patient Goal Type Associated Problems Recent Progress Patient-Stated? Author Blood Pressure < 130/80 Blood Pressure 116/76( 025 2:56 PM EDT) No Amanda Ramirez MA documented as of this encounter Visit Diagnoses Not on filedocumented in this encounter Care Teams Timber Sprinkler Relationship Specialty Start Date End Date Arden Sams PA-C PCP - General Internal Medicine 07/06/18 Mehnaz Lowry APRN.CLIENT SUPPORT ADMINISTRATOR [address] [place] [address] Primary Staff Physician Nephrology 10/04/21 documented as of this encounter
--- OUTSIDE RECORDS SUMMARY | 2025-02-27 12:36 | XMS_ITS | Encounter Summary ---
Author Organization [facility] Address [facility] [place] [address] Care Team Providers Care County Agricultural Agent Name Role Phone Arden Sams PA-C Primary Care Provider Mehnaz Lowry APRN.TAX EVALUATOR Unavailable [phone] Source Comments In the event this information is protected by the Federal Confidentiality of Alcohol and Drug AbusePatient Records regulations: The Federal rules restrict any use of the information to criminally investigate or prosecute any alcohol or drug abuse patient.[facility] Encounter Details Date Type Department Care Team (Late st Contact Info) Description 11/07/2021 Lab Requisition [facility] [address] [place] [address] Mehnaz Lowry, MASS SPECTROSCOPIST.TAX EVALUATOR [address] [place] [address] Kidney transplant status Social History Tobacco Use Types Packs/Day Years Used Date Smoking Tobacco: Never Smokeless Tobacco: Never Alcohol Use Standard Drinks/Week Comments No 0 (1 standard drink = 0.6 oz pure alcohol) no alcohol > 2 yrs, no previous hx of abuse Area Deprivation Index Answer Date Boris rded National Score (1-100), lower number is lower ri sk Not on file 08/14/2020 State Score (1-10), lower number is lower risk N ot on file 08/14/2020 Data from: https://www.neighborhoodatlas.medicine.[facility]/. Last address used for calculation Not on file 08/14/2020 Sex and Gender Information Value Date Recorded [...] 12:34 PM EDT Tobi, V kalpana L (Powder Loader), REGIONAL BRANCH MANAGER * Are you blind or do you have serious difficulty seeing, even when wearing glasses? Answer Date of Assessment Author No 12/28/2014 12:34 PM EDT Tobi, V kalpana L (Powder Loader), REGIONAL BRANCH MANAGER * Do you have serious difficulty walking or climbing stairs? Answer Date of Assessment Author No 12/28/2014 12:34 PM EDT Tobi, V kalpana L (Powder Loader), REGIONAL BRANCH MANAGER * Do you have difficulty dressing or bathing? Answer Date of Assessment Author No 12/28/2014 12:34 PM EDT Tobi, V kalpana L (Powder Loader), REGIONAL BRANCH MANAGER * Because of a physical, mental, or emotional condition, do you have difficulty doing errands alone such as visiting a doctor's office or shopping? Answer Date of Assessment Author No 12/28/2014 12:34 PM EDT Tobi, V kalpana L (Powder Loader), REGIONAL BRANCH MANAGER documented as of this encounter Mental Status * Because of a physical, mental, or emotional condition, do you have serious difficulty concentrating, remembering, or making decisions? Answer Entry Date Author No 12/28/2014 12:34 PM EDT Tobi, V kalpana L (Powder Loader), REGIONAL BRANCH MANAGER documented in this encounter Plan of Treatment Upcoming Encounters Date Type Department Care Team (Late st Contact Info) Description 03/01/2025 9:15 AM EDT Office Visit [facility] Laboratory [address] [place] [address] [place] [address] lab 08/26/2025 1:00 PM EST Office Visit Cardiology [address] [place] [address] Emanuel Whitten MD [address] [facility] [place], [place] [id number] Return in about 7 months (around 08/26/2025). documented as of this encounter Procedures Procedure Name Priority Date/Time Associated Diagnosis Comments LAVENDER TOP EXTRA TUBE Routine 11/05/2021 8:20 AM EST Kidney transplant status BK VIRUS (BKV) DNA, QUANTITATIVE PCR, PLASMA Routine 11/05/2021 8:20 AM EST Kidney transplant status TACROLIMUS ASSAY Routine 11/05/2021 8:20 AM EST Kidney transplant status documented in this encounter Results * LAVENDER TOP EXTRA TUBE (11/05/2021 8:20 AM EST) EXTRA TUBE AUTORESULT LRR Complete 11/07/2021 2:01 AM EST [facility] Blood BLOOD SPECIMEN / Unknown 11/05/2021 8:20 AM EST 11/07/2021 12:26 AM EST us Mehnaz Lowry MASS SPECTROSCOPIST.TAX EVALUATOR LABORATORY Final R esult [facility] [address] [address], * BK VIRUS PCR,QUANT,P (11/05/2021 8:20 AM EST) BKV DNA BK Virus DNA Not Detected by PCR. BK Virus DNA Not Detected by PCR. 11/08/2021 2:26 PM EST [facility] Blood BLOOD SPECIMEN / Unknown 11/05/2021 8:20 AM EST 11/07/2021 12:26 AM EST Narrative [facility] - 11/08/2021 2:26 PM EST Linear Range is 21.5 IU/mL to 100,000,000 IU/mL. us Mehnaz Lowry MASS SPECTROSCOPIST.SEAN LABORATORY Final R esult Performing Organization Address [facility] Co de Phone Number [facility] [address] [place] [address], * TACROLIMUS/FK-506 BL (11/05/2021 8:20 AM EST) Tacrolimus/FK506 7.2 5.0 - 20.0 ng/mL 11/07/2021 10:24 AM EST [facility] Comment: These reference ranges are provided as a general recommendation. Individualized target levels for a given patient will [...] situation. Test performed by chemiluminescent immunoassay using [employer]. Blood BLOOD SPECIMEN / Unknown 11/05/2021 8:20 AM EST 11/07/2021 12:26 AM EST Mehnaz Lowry MASS SPECTROSCOPIST.SEAN LABORATORY Final R esult Performing Organization Address [facility] Co de Phone Number [facility] [address] [place] [address] documented in this encounter Visit Diagnoses Diagnosis Kidney transplant status (HCC) documented in this encounter Care Teams County Agricultural Agent Relationship Specialty Start Date End Date Arden Sams PA-C PCP - General Internal Medicine 07/06/18 Mehnaz Lowry APRN.CNP [address] [place] [address] Primary Staff Physician Nephrology 10/04/21 documented as of this encounter
--- OUTSIDE RECORDS SUMMARY | 2025-02-27 12:36 | XMS_ITS | Encounter Summary ---
Author Organization [facility] Address [address] [place] [address] Care Team Providers Care Community Coordinator For High School Name Role Phone Arden Sams PA-C Primary Care Provider Mehnaz Lowry APRN.BASKETBALL SCOUT Unavailable [phone] Source Comments In the event this information is protected by the Federal Confidentiality of Alcohol and Drug AbusePatient Records regulations: The Federal rules restrict any use of the information to criminally investigate or prosecute any alcohol or drug abuse patient.[facility] Encounter Details Date Type Department Care Team (Late st Contact Info) Description 01/21/2024 Patient Msg Cardiology [address] [place] [address] Provider, Ccf PVI ABLATION Social History Tobacco Use Types Packs/Day Years [...] N ot on file 09/20/2022 Data from: https://www.neighborhoodatlas.medicine.[employer]/. Last address used for calculation [address] 09/20/2022 Sex and Gender Information Value Date [...] Assessment Author No 12/28/2014 12:34 PM EDT Tboi, V kalpana L (Plisse Machine Operator), QUALITY ASSURANCE REPRESENTATIVE * Are you blind or do you have serious difficulty seeing, even when wearing glasses? Answer Date of Assessment Author No 12/28/2014 12:34 PM EDT Tobi, V kalpana L (Plisse Machine Operator), QUALITY ASSURANCE REPRESENTATIVE * Do you have serious difficulty walking or climbing stairs? Answer Date of Assessment Author No 12/28/2014 12:34 PM EDT Tobi, V kalpana L (Plisse Machine Operator), QUALITY ASSURANCE REPRESENTATIVE * Do you have difficulty dressing or bathing? Answer Date of Assessment Author No 12/28/2014 12:34 PM EDT Tobi, V kalpana L (Plisse Machine Operator), QUALITY ASSURANCE REPRESENTATIVE * Because of a physical, mental, or emotional condition, do you have difficulty doing errands alone such as visiting a doctor's office or shopping? Answer Date of Assessment Author No 12/28/2014 12:34 PM EDT Tobi, V kalpana L (Plisse Machine Operator), QUALITY ASSURANCE REPRESENTATIVE documented as of this encounter Mental Status * Because of a physical, mental, or emotional condition, do you have serious difficulty concentrating, remembering, or making decisions? Answer Entry Date Author No 12/28/2014 12:34 PM EDT Tobi, V kalpana L (Plisse Machine Operator), QUALITY ASSURANCE REPRESENTATIVE documented in this encounter Plan of Treatment Upcoming Encounters Date Type Department Care Team (Late st Contact Info) Description 03/01/2025 9:15 AM EDT Office Visit [facility] Laboratory [address] [place] [address] [place] [address] lab 08/26/2025 1:00 PM EST Office Visit Cardiology [address] [facility] [place] [address] Emanuel Whitten MD [address] [place] [address] Return in about 7 months (around 08/26/2025). documented as of this encounter Goals Goal Patient Goal Type Associated Problems Recent Progress Patient-Stated? Author Blood Pressure < 130/80 Blood Pressure 116/76( 025 2:56 PM EDT) No Amanda Ramirez MA documented as of this encounter Visit Diagnoses Not on filedocumented in this encounter Care Teams Community Coordinator For High School Relationship Specialty Start Date End Date Arden Sams PA-C PCP - General Internal Medicine 07/06/18 Mehnaz Lowry APRN.BASKETBALL SCOUT [address] [place] [address] Primary Staff Physician Nephrology 10/04/21 documented as of this encounter
--- OUTSIDE RECORDS SUMMARY | 2025-02-27 12:36 | XMS_ITS | Encounter Summary ---
Author Organization [facility] Address [address] [place] [address] Care Team Providers Care Attending Ambulatory Care Name Role Phone Arden Sams PA-C Primary Care Provider Mehnaz Lowry APRN.CARPET JOURNEYMAN Unavailable [phone] Source Comments In the event this information is protected by the Federal Confidentiality of Alcohol and Drug AbusePatient Records regulations: The Federal rules restrict any use of the information to criminally investigate or prosecute any alcohol or drug abuse patient.[facility] Encounter Details Date Type Department Care Team (Late st Contact Info) Description 02/24/2020 Patient Msg Kidney Medicine [facility] [address] [phone] Mehnaz Lowry, MISSING PERSONS INVESTIGATOR.CARPET JOURNEYMAN [address] [place] [address] RE: Request an Appointment Social History Tobacco Use Types Packs/Day Years [...] 12:34 PM EDT Tobi, V kalpana L (Instructional Developer), PACK OPERATOR * Are you blind or do you have serious difficulty seeing, even when wearing glasses? Answer Date of Assessment Author No 12/28/2014 12:34 PM EDT Tobi, V kalpana L (Instructional Developer), PACK OPERATOR * Do you have serious difficulty walking or climbing stairs? Answer Date of Assessment Author No 12/28/2014 12:34 PM EDT Tobi, V kalpana L (Instructional Developer), PACK OPERATOR * Do you have difficulty dressing or bathing? Answer Date of Assessment Author No 12/28/2014 12:34 PM EDT Tobi, V kalpana L (Instructional Developer), PACK OPERATOR * Because of a physical, mental, or emotional condition, do you have difficulty doing errands alone such as visiting a doctor's office or shopping? Answer Date of Assessment Author No 12/28/2014 12:34 PM EDT Tobi, V kalpana L (Instructional Developer), PACK OPERATOR documented as of this encounter Mental Status * Because of a physical, mental, or emotional condition, do you have serious difficulty concentrating, remembering, or making decisions? Answer Entry Date Author No 12/28/2014 12:34 PM EDT Tobi, V kalpana L (Instructional Developer), PACK OPERATOR documented in this encounter Plan of Treatment Upcoming Encounters Date Type Department Care Team (Late st Contact Info) Description 03/01/2025 9:15 AM EDT Office Visit [facility] [address] [place] [address] [place] [address] lab 08/26/2025 1:00 PM EST Office Visit Cardiology [address] [facility] [place], [place] [id number] Emanuel Whitten MD [address] [facility] [place] [address] Return in about 7 months (around 08/26/2025). documented as of this encounter Visit Diagnoses Not on filedocumented in this encounter Care Teams Attending Ambulatory Care Relationship Specialty Start Date End Date Arden Sams PA-C PCP - General Internal Medicine 07/06/18 Mehnaz Lowry APRN.CARPET JOURNEYMAN [address] [facility] [place] [address] Primary Staff Physician Nephrology 10/04/21 documented as of this encounter
--- OUTSIDE RECORDS SUMMARY | 2025-02-27 12:36 | XMS_ITS | Encounter Summary ---
Author Organization [facility] Address [address] [place] [address] Care Team Providers Care Rough Rounder Machine Name Role Phone Arden Sams PA-C Primary Care Provider Mehnaz Lowry APRN.CLINICAL SYSTEMS ANALYST Unavailable [phone] Source Comments In the event this information is protected by the Federal Confidentiality of Alcohol and Drug AbusePatient Records regulations: The Federal rules restrict any use of the information to criminally investigate or prosecute any alcohol or drug abuse patient.[facility] Encounter Details Date Type Department Care Team (Late st Contact Info) Description 03/19/2024 Get Medical Advice Kidney Medicine [facility] [address] [phone] Mehnaz Lowry, SACK KEEPER.CLINICAL SYSTEMS ANALYST [address] [place] [address] medication Social History Tobacco Use Types Packs/Day Years [...] N ot on file 09/20/2022 Data from: https://www.neighborhoodatlas.medicine.[facility] [place]/. Last address used for calculation [address] [...] Entry Date Author No 03/06/2024 11:12 AM IRINAT Zhanna Lozada RN documented in this encounter Plan of Treatment Upcoming Encounters Date Type Department Care Team (Late st Contact Info) Description 03/01/2025 9:15 AM EDT Office Visit [facility] Laboratory [address] [place] [address] [place] [address] lab 08/26/2025 1:00 PM EST Office Visit Cardiology [address] [place] [address] Emanuel Whitten MD [address] [place], [place] [id number] Return in about 7 months (around 08/26/2025). documented as of this encounter Goals Goal Patient Goal Type Associated Problems Recent Progress Patient-Stated? Author Blood Pressure < 130/80 Blood Pressure 116/76( 025 2:56 PM EDT) No Amanda Ramirez MA documented as of this encounter Visit Diagnoses Not on filedocumented in this encounter Care Teams Rough Rounder Machine Relationship Specialty Start Date End Date Arden Sams PA-C PCP - General Internal Medicine 07/06/18 Mehnaz Lowry APRN.CLINICAL SYSTEMS ANALYST [address] [place] [address] Primary Staff Physician Nephrology 10/04/21 documented as of this encounter
--- OUTSIDE RECORDS SUMMARY | 2025-02-27 12:36 | XMS_ITS | Encounter Summary ---
Author Organization [facility] Address [address] [place] [address] Care Team Providers Care Phone Manager Name Role Phone Sukhwinder Gill Primary Care Provider U Brendan Scott NP Primary Care Provider [phone] Arden Sams PA-C Primary Care Provider Mehnaz Lowry APRN.WASH TUB MACHINE OPERATOR Unavailable [phone] Source Comments In the event this information is protected by the Federal Confidentiality of Alcohol and Drug AbusePatient Records regulations: The Federal rules restrict any use of the information to criminally investigate or prosecute any alcohol or drug abuse patient.[facility] Encounter Details Date Type Department Care Team (Late st Contact Info) Description 05/12/2017 Get Medical Advice Kidney Medicine [facility] [address] [phone] [place] [address] [place] [address] RE: Upcoming Appointment Question Social History Tobacco Use Types Packs/Day Years [...] 12:34 PM EDT Tobi, V kalpana L (Regional Marketing Director), SURVEILLANCE SYSTEMS ENGINEER * Are you blind or do you have serious difficulty seeing, even when wearing glasses? Answer Date of Assessment Author No 12/28/2014 12:34 PM EDT Tobi, V kalpana L (Regional Marketing Director), SURVEILLANCE SYSTEMS ENGINEER * Do you have serious difficulty walking or climbing stairs? Answer Date of Assessment Author No 12/28/2014 12:34 PM EDT Tobi, V kalpana L (Regional Marketing Director), SURVEILLANCE SYSTEMS ENGINEER * Do you have difficulty dressing or bathing? Answer Date of Assessment Author No 12/28/2014 12:34 PM EDT Tobi, V kalpana L (Regional Marketing Director), SURVEILLANCE SYSTEMS ENGINEER * Because of a physical, mental, or emotional condition, do you have difficulty doing errands alone such as visiting a doctor's office or shopping? Answer Date of Assessment Author No 12/28/2014 12:34 PM EDT Tobi, V kalpana L (Regional Marketing Director), SURVEILLANCE SYSTEMS ENGINEER documented as of this encounter Mental Status * Because of a physical, mental, or emotional condition, do you have serious difficulty concentrating, remembering, or making decisions? Answer Entry Date Author No 12/28/2014 12:34 PM EDT Tobi, V kalpana L (Regional Marketing Director), SURVEILLANCE SYSTEMS ENGINEER documented in this encounter Plan of Treatment Upcoming Encounters Date Type Department Care Team (Late st Contact Info) Description 03/01/2025 9:15 AM EDT Office Visit [facility] Laboratory [address] [place] [address] [place] [address] lab 08/26/2025 1:00 PM EST Office Visit Cardiology [address] [facility] [place] [address] Emanuel Whitten MD [address] [facility] [place] [address] Return in about 7 months (around 08/26/2025). documented as of this encounter Visit Diagnoses Not on filedocumented in this encounter Care Teams Phone Manager Relationship Specialty Start Date End Date Sukhwinder Gill PCP - General 05/14/07 07/06/17 Brendan Rivas NP [address] [place] [address] PCP - General Family Medicine 07/07/17 07/05/18 Arden Sams PA-C [address] [place] [address] PCP - General Internal Medicine 07/06/18 Mehnaz Lowyr APRN.WASH TUB MACHINE OPERATOR [address] [place] [address] Primary Staff Physician Nephrology 10/04/21 documented as of this encounter
--- OUTSIDE RECORDS SUMMARY | 2025-02-27 12:36 | XMS_ITS | Encounter Summary ---
Author Organization [facility] Address [facility] [place] [address] Care Team Providers Care Cross Country/Track And Field Coach Name Role Phone Arden Sams PA-C Primary Care Provider Mehnaz Lowry APRN.GROUND CREW LINES PERSON Unavailable [phone] Source Comments In the event this information is protected by the Federal Confidentiality of Alcohol and Drug AbusePatient Records regulations: The Federal rules restrict any use of the information to criminally investigate or prosecute any alcohol or drug abuse patient.[facility] Encounter Details Date Type Department Care Team (Late st Contact Info) Description 02/17/2022 Lab Requisition [facility] [address] [place] [address] Mehnaz Lowry, MARINA PORTER.GROUND CREW LINES PERSON [address] [place] [address] Kidney transplant status Social History [...] N ot on file 01/25/2022 Data from: https://www.neighborhoodatlas.medicine.[facility]/. Last address used for calculation [address] 01/25/2022 Sex and Gender Information Value Date [...] 12:34 PM EDT Tobi, V kalpana L (Chemist Proteins), CITY CARRIER ASSISTANT * Are you blind or do you have serious difficulty seeing, even when wearing glasses? Answer Date of Assessment Author No 12/28/2014 12:34 PM EDT Tobi, V kalpana L (Chemist Proteins), CITY CARRIER ASSISTANT * Do you have serious difficulty walking or climbing stairs? Answer Date of Assessment Author No 12/28/2014 12:34 PM EDT Tobi, V kalpana L (Chemist Proteins), CITY CARRIER ASSISTANT * Do you have difficulty dressing or bathing? Answer Date of Assessment Author No 12/28/2014 12:34 PM EDT Tobi, V kalpana L (Chemist Proteins), CITY CARRIER ASSISTANT * Because of a physical, mental, or emotional condition, do you have difficulty doing errands alone such as visiting a doctor's office or shopping? Answer Date of Assessment Author No 12/28/2014 12:34 PM EDT Tobi, V kalpana L (Chemist Proteins), CITY CARRIER ASSISTANT documented as of this encounter Mental Status * Because of a physical, mental, or emotional condition, do you have serious difficulty concentrating, remembering, or making decisions? Answer Entry Date Author No 12/28/2014 12:34 PM EDT Tobi, V kalpana L (Chemist Proteins), CITY CARRIER ASSISTANT documented in this encounter Plan of Treatment Upcoming Encounters Date Type Department Care Team (Late st Contact Info) Description 03/01/2025 9:15 AM EDT Office Visit [facility] Laboratory [address] [place] [address] [place] [address] lab 08/26/2025 1:00 PM EST Office Visit [facility] [address] [facility] [place] [address] Emanuel Whitten MD [address] [facility] [place] [id number] Return in about 7 months (around 08/26/2025). documented as of this encounter Procedures Procedure Name Priority Date/Time Associated Diagnosis Comments LAVENDER TOP EXTRA TUBE Routine 02/16/2022 8:30 AM EDT Kidney transplant status BK VIRUS (BKV) DNA, QUANTITATIVE PCR, PLASMA Routine 02/16/2022 8:30 AM EDT Kidney transplant status TACROLIMUS ASSAY Routine 02/16/2022 8:30 AM EDT Kidney transplant status documented in this encounter Results * LAVENDER TOP EXTRA TUBE (02/16/2022 8:30 AM EDT) Blood BLOOD SPECIMEN / Unknown 02/16/2022 8:30 AM EDT 02/17/2022 4:08 AM EDT us Mehnaz Lowry MARINA PORTER.GROUND CREW LINES PERSON LABORATORY Final R esult [facility] [address] [address], * BK VIRUS PCR,QUANT,P (02/16/2022 8:30 AM EDT) BKV DNA BK Virus DNA Not Detected by PCR. BK Virus DNA Not Detected by PCR. OLLIE LUKE [address] 02/18/2022 6:02 AM EDT [facility] Blood BLOOD SPECIMEN / Unknown 02/16/2022 8:30 AM EDT 02/17/2022 4:08 AM EDT Narrative [facility] - 02/18/2022 6:02 AM EDT Linear Range is 21.5 IU/mL to 100,000,000 IU/mL. us Mehnaz Lowry MARINA PORTER.GROUND CREW LINES PERSON LABORATORY Final R esult Performing Organization Address [facility] Co de Phone Number [facility] [address] [place] [address], * TACROLIMUS/FK-506 BL (02/16/2022 8:30 AM EDT) Tacrolimus/FK506 9.8 5.0 - 20.0 ng/mL 02/17/2022 12:39 PM EDT [facility] Comment: These reference ranges are [...] situation. Test performed by chemiluminescent immunoassay using [employer]. Blood BLOOD SPECIMEN / Unknown 02/16/2022 8:30 AM EDT 02/17/2022 4:08 AM EDT Mehnaz Lowry MARINA PORTER.GROUND CREW LINES PERSON LABORATORY Final R esult Performing Organization Address [facility] Co de Phone Number [facility] [address] documented in this encounter Visit Diagnoses Diagnosis Kidney transplant status (HCC) documented in this encounter Care Teams Cross Country/Track And Field Coach Relationship Specialty Start Date End Date Arden Sams PA-C PCP - General Internal Medicine 07/06/18 Mehnaz Lowry APRN.CNP [address] [place] [address] Primary Staff Physician Nephrology 10/04/21 documented as of this encounter
--- OUTSIDE RECORDS SUMMARY | 2025-02-27 12:36 | XMS_ITS | Encounter Summary ---
Author Organization [facility] Address [address] [place] [address] Care Team Providers Care Automated Equipment Engineer Technician Name Role Phone Arden Sams PA-C Primary Care Provider Mehnaz Lowry APRN.[place] Unavailable [phone] Source Comments In the event this information is protected by the Federal Confidentiality of Alcohol and Drug AbusePatient Records regulations: The Federal rules restrict any use of the information to criminally investigate or prosecute any alcohol or drug abuse patient.[facility] Encounter Details Date Type Department Care Team (Late st Contact Info) Description 08/27/2024 Patient Msg Cardiology [address] [facility] [address] Provider, [facility]ARDIOVERSION Social History Tobacco Use Types Packs/Day Years [...] Description 03/01/2025 9:15 AM EDT Office Visit [facility] [address] [place] [address] [place] [address] lab 08/26/2025 1:00 PM EST Office Visit Cardiology [address] [facility] [place] [address] Emanuel Whitten MD [address] [place] [address] Return in about 7 months (around 08/26/2025). documented as of this encounter Goals Goal Patient Goal Type Associated Problems Recent Progress Patient-Stated? Author Blood Pressure < 130/80 Blood Pressure 116/76( 025 2:56 PM EDT) No Amanda Ramirez MA documented as of this encounter Visit Diagnoses Not on filedocumented in this encounter Care Teams Automated Equipment Engineer Technician Relationship Specialty Start Date End Date Arden Sams PA-C PCP - General Internal Medicine 07/06/18 Mehnaz Lowry APRN.[place] [address] [place] [address] Primary Staff Physician Nephrology 10/04/21 documented as of this encounter
--- OUTSIDE RECORDS SUMMARY | 2025-02-27 12:36 | XMS_ITS | Clinical Summary ---
Author Organization [facility] Address [address] [place] [address] Care Team Providers Care Delivery And Installation Subcontractor Name Role Phone Arden Sams PA-C Primary Care Provider Mehnaz Lowry APRN.BAKERY WORKER Unavailable [phone] Allergies No known active allergies Medications CALCIUM CARBONATE/VITAMIN D3 (CALCIUM + D ORAL) Take one(1) tablet two(2) times daily. Active gabapentin (NEURONTIN) 300 mg capsule Take 300 mg by mouth twice daily. 2 Active rivaroxaban (XARELTO) 20 mg tablet Take 1 tablet by mouth daily with dinner. 90 tablet 3 4 Active predniSONE (DELTASONE) 5 mg tabletIndications: 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) take 1 tablet by mouth once daily 90 tablet 3 4 Active hydrOXYzine HCl (ATARAX) 25 mg tablet Take 25 mg by mouth once daily as needed. Active sulfamethoxazole-t rimethoprim (BACTRIM) 400-80 mg per tabletIndications: Need for pneumocystis prophylaxis Take 1 tablet by mouth every Friday, Friday, and Friday. 4 Active tacrolimus IR (PROGRAF) 1 mg capsuleIndications :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) Take(1) capsule by mouth twice daily 180 capsule 3 5 Active mycophenolate mofetil (CELLCEPT) 250 mg capsuleIndications :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),Need for prophylactic immunotherapy TAKE 2 CAPSULES BY MOUTH TWICE DAILY 360 capsule 3 5 Active metoprolol tartrate, short acting, (LOPRESSOR) 25 mg tablet Take 2 tablets by mouth every 12 hours. 180 tablet 3 Active Active Problems Problem Noted Date Diagnosed Date Atrial fibrillation, persistent 09/10/2024 On continuous oral anticoagulation 07/27/2024 S/P ablation of atrial fibrillation 03/06/2024 Cardiomyopathy 11/10/2023 Aneurysm of ascending aorta without rupture 12/2023 PAF (paroxysmal atrial fibrillation) 09/30/2023 Kidney replaced by transplant 05/08/2009 Need for prophylactic immunotherapy 05/08/2009 Hypertensive heart and kidne y disease with end-stage renal disease 05/08/2009 Polycystic kidney disease 05/08/2009 Ureteral fistula 05/08/2009 S/p cadaver renal transplant Umbilical hernia Encounters Date Type Department Care Team Description 02/22/2025 Travel 01/24/2025 3:00 PM EDT Office Visit Cardiology [address] [facility] [place] [address] Emanuel Scott MD PAF (paroxysmal atrial fibrillation) (HCC) (Primary Dx); Other cardiomyopathy (HCC); Aneurysm of ascending aorta without rupture; S/P ablation of atrial fibrillation 01/24/2025 1:50 PM EDT Office Visit Cardiology [address] [facility] [place], [place] [id number] [employer] Service Supervisor [facility] Cardiomyopathy, unspecified type (HCC); Aneurysm of ascending aorta without rupture 01/17/2025 Travel 01/16/2025 Refill Kidney Medicine [place] [id number] Mehnaz Lowry, CONG.BAKERY WORKER Refill Request 12/13/2024 Refill Cardiology [address] [facility] [place] [address] Emanuel Scott MD Refill Request from Last 3 Months Immunizations Immunization Administration Dates Next Due influenza (HD-IIV3) vaccine, age 65+ yr, high dose, trivalent, PF (FLUZONE HIGH-DOSE) 07/06/2024 influenza (HD-IIV4) vaccine, age 65+ yr, high dose, quadrivalent, PF (FLUZONE HIGH-DOSE) 07/01/2022 influenza (IIV4) vaccine, ag e 6 mo - 64 yr, quadrivalent (AFLURIA, FLULAVAL, FLUZONE) 07/05/2021,07/03/2020,07/05/2019 influenza vaccine, unspecifi ed formulation 05/09/2016,06/21/2010,07/13/2009 06/21/2011 novel influenza (K3Q9-66) va ccine, unspecified formulation 07/13/2009 07/13/2010 pneumococcal (PCV7) vaccine, 7 valent (PREVNAR 7) 02/07/2009 tuberculin skin test (TST-PP D), purified protein derivative, intradermal 12/31/2008 Family History Medical History Relation Comments Polycystic Kidney [Other] Brother 2 CVA [Other] Father Emphysema Father Polycystic Kidney [Other] Mother Relation Status Comments Brother 1 Alive PKD- not on dial ysis yet, [place] Brother 2 Father (Age 80) emphysema, CVA Mother (Age 76) PKD, h/o dialy sis Social History Tobacco Use Types Packs/Day Years [...] N ot on file 09/20/2022 Data from: https://www.neighborhoodatlas.medicine.[facility].edu/. Last address used for calculation [address] [facility] 09/20/2022 Sex and Gender Information Value Date Recorded Sex Assigned at Male 01/25/2022 3:56 PM EDT Legal Sex Male 8:10 AM EST Gender Identity Male 01/25/2022 3:56 PM EDT Sexual Orientation Straight 01/25/2022 3: 57 PM EDT Last Filed Vital Signs Vital Sign Reading Time Taken Comments Blood Pressure 116/76 01/24/2025 2:56 PM EDT Pulse 64 01/24/2025 2:56 PM EDT Temperature 36.6 C (97.8 F) 11/05/2024 1:00 PM EST Respiratory Rate 22 11/05/2024 1:00 PM EST Oxygen Saturation 99% 11/05/2024 1:00 PM EST Inhaled Oxygen Concentration - - Weight 168.1 kg (370 lb 9.5 oz) 01/24/2025 2:56 PM EDT Height 213.4 cm (7') 09/10/2024 10:16 AM EST Body Mass Index 36.93 09/10/2024 10:16 AM EST Plan of Treatment Upcoming Encounters Date Type Department Care Team (Late st Contact Info) Description 03/01/2025 9:15 AM EDT Office Visit [facility] [address] [place] [address] [place] [address] lab 08/26/2025 1:00 PM EST Office Visit Cardiology [address] [facility] [place] [address] Emanuel Scott MD [address] [facility] [place], [place] [phone] Return in about 7 months (around 08/26/2025). Health Maintenance Due Date Last Done Comments Covid-19 Vaccine (#1) 1962 Annual PCP Team Chronic Dise ase Visit 1975 Anxiety Screening 1975 Depression Screening 1975 DTaP,Tdap,Td Vaccine (1 - Tdap) 1976 Hepatitis A Vaccine (1 of 2 - Risk 2-dose series) 1976 Pneumococcal Vaccine: 50+ (1 of 2 - PCV) 1976 02/07/2009 Shingrix Vaccine (1 of 2) 1976 CT Colonography 2002 Cologuard (FIT-DNA) 2002 Colonoscopy 2002 Colorectal Cancer Screening 2002 Fecal Occult Blood 2002 Sigmoidoscopy 2002 RSV Vaccine (1 - Risk 60-74 years 1-dose series) 2017 Medicare Annual Wellness Visit 05/09/2022 Advance Directive Discussion 09/08/2024 Serum Creatinine 11/30/2025 11/30/2024, , 06/01/2024, Additional history exists Diabetes Screening 12/01/2027 11/30/2024, 1 10/31/2023, 06/01/2024, Additional history exists Prostate Cancer Screening Discussion 04/29/2028 04/29/2023, 09/03/2022, 01/16/2022, Additional history exists Lipid Screening 12/01/2028 12/02/2023, 02/07, 12/05/2018, Additional history exists Hepatitis C Screening Completed 01/23/2009, 009 Influenza Vaccine Completed 07/06/2024, , 07/05/2021, Additional history exists Goals Goal Patient Goal Type Associated Problems Recent Progress Patient-Stated? Author Blood Pressure < 130/80 Blood Pressure 116/76( 025 2:56 PM EDT) Amanda Mejias MA Medical Devices Implanted Type Area Identity Management Consultant Device Identifier Shelf Expiration Date Model / Serial / Lot Mesh Srg Pco Optim 8x6in - [id number] Implanted:Qty: 1 on 02/05/2012 at [facility] Mesh N/A: Abdomen [facility] 05/09/2013 [id number] / / [id number] Description:Optimized Compos ite mesh Procedures Procedure Name Priority Date/Time Associated Diagnosis Comments LVEF TRANSTHORACIC ECHO Routine 01/24/2025 1:39 PM EDT ECHO Routine 01/24/2025 1:39 PM EDT Cardiomyopathy, unspecified type (HCC) Aneurysm of ascending aorta without rupture COMPREHENSIVE METABOLIC PANEL Routine 11/30/2024 9:13 AM EDT Kidney replaced by transplant MAGNESIUM BLD Routine 11/30/2024 9:13 AM EDT Hypomagnesemia Kidney replaced by transplant PHOSPHORUS INORGANIC Routine 11/30/2024 9:13 AM EDT Kidney replaced by transplant CBC + DIFF Routine 11/30/2024 9:13 AM EDT Kidney replaced by transplant TACROLIMUS/FK-506 BL Routine 11/30/2024 9:13 AM EDT Kidney replaced by transplant LIPID PANEL, FASTING Routine 12/02/2023 9:32 AM EDT Persistent atrial fibrillation (HCC) Abnormal EKG Encounter for lipid screening for cardiovascular disease PSA DIAGNOSTIC Routine 04/29/2023 10:48 AM EDT Elevated PSA HEPATITIS C VIRUS (HCV) RNA, QUANTITATIVE PCR, PLASMA/SERUM Routine 01/23/2009 11:52 AM EDT Renal Failure Nos from Last 3 Months or Most Recently Relevant to Health Maintenance Results * ECHO (01/24/2025 1:39 PM EDT) 01/24/2025 1:39 PM EDT [facility] - 01/24/2025 3:06 PM EDT CONCLUSIONS: - Technically difficult exam due to [...] * * * Final * * * [facility] - 01/24/2025 3:06 PM EDT Echocardiography Report: Transthoracic Echo [facility] Date of service: 01/24/2025 1:39:57 PM INTERNSHIP Ordering physician: EMANUEL SCOTT Indication: CM Technologist: [...] Doppler. PERICARDIUM There is no pericardial effusion. us Emanuel Scott MD ECHO Final Result Performing Organization Address [facility] Co de Phone Number [address] [address] * LVEF TRANSTHORACIC ECHO (01/24/2025 1:39 PM EDT) [facility] LV Ejection Fraction 61 % [facility] [place] Comment: (2D biplane) EF > 52 An LV Ejection Fraction of > 50% is normal 01/24/2025 1:39 PM EDT Emanuel Scott MD LVEF RESULTS Final Result Performing Organization Address [facility] Co de Phone Number [facility] AND [address] [address] * (ABNORMAL) MAGNESIUM (11/30/2024 9:13 AM EDT) [facility] Magnesium 1.6(L) 1.7 - 2.3 mg/dL 11/30/2024 10:05 AM EDT [facility] Blood BLOOD SPECIMEN / Unknown Venipuncture / Unknown 11/30/2024 9:13 AM EDT 11/30/2024 9:13 AM EDT Leandro Oneil MD LABORATORY Final Result Performing Organization Address City/[facility]/ZIP Co de Phone Number [facility] [address] [place] [address] * TACROLIMUS/FK-506 BL (11/30/2024 9:13 AM EDT) Tacrolimus/FK506 7.1 5.0 - 20.0 ng/mL 12/01/2024 1:44 PM EDT [facility] Comment:Individualized targe t levels for a given patient will depend [...] situation. Test performed by chemiluminescent immunoassay using [employer] Alinity i. Blood BLOOD SPECIMEN / Unknown Venipuncture / Unknown 11/30/2024 9:13 AM EDT 11/30/2024 9:13 AM EDT Leandro Oneil MD LABORATORY Final Result Performing Organization Address City/[facility]/ZIP Co de Phone Number [facility] [address] [place] [address], * PHOSPHORUS INORGANIC (11/30/2024 9:13 AM EDT) Phosphorus 2.9 2.7 - 4.8 mg/dL 11/30/2024 10:05 AM EDT [facility] Blood BLOOD SPECIMEN / Unknown Venipuncture / Unknown 11/30/2024 9:13 AM EDT 11/30/2024 9:13 AM EDT Leandro Oneil MD LABORATORY Final Result [facility] [address] [place] [address] * (ABNORMAL) COMPREHENSIVE METABOLIC PANEL (11/30/2024 9:13 AM EDT) Protein, Total 6.0(L) 6.3 - 8.0 g/dL 11/30/2024 10:04 AM EDT [facility] Albumin 4.1 3.9 - 4.9 g/dL 11/30/2024 10:04 AM EDT [facility] Calcium, Total 9.6 8.5 - 10.2 mg/dL 11/30/2024 10:04 AM T [facility] Bilirubin, Total 1.4(H) 0.2 - 1.3 mg/dL 11/30/2024 10:04 AM [facility] Alkaline Phosphatase 64 38 - 113 U/L 11/30/2024 10:04 AM T [facility] AST 16 14 - 40 U/L 11/30/2024 10:04 AM EDT [facility] ALT 10 10 - 54 U/L 11/30/2024 10:04 AM [facility] Glucose 121(H) 74 - 99 mg/dL 11/30/2024 10:04 AM [facility] Comment: The [place] Diabetes Association (ADA) provides guidance for cutoff [...] Standards of Medical Care in Diabetes 2016, [place] Diabetes Association. Diabetes Care. 2016.39(Suppl 1). BUN 15 9 - 24 mg/dL 11/30/2024 10:04 AM T [facility] Creatinine 1.31(H) 0.73 - 1.22 mg/dL 11/30/2024 10:04 AM [facility] Sodium 145(H) 136 - 144 mmol/L 11/30/2024 10:04 AM [facility] Potassium 4.3 3.7 - 5.1 mmol/L 11/30/2024 10:04 AM [facility] Chloride 109(H) 98 - 107 mmol/L 11/30/2024 10:04 AM EDT [facility] CO2 24 22 - 30 mmol/L 11/30/2024 10:04 AM EDT [facility] Anion Gap 12 8 - 15 mmol/L 11/30/2024 10:04 AM EDT [facility] Estimated Glomerular Filtration Rate 60 >=60 mL/min/1. 73m 11/30/2024 10:04 AM EDT [facility] Comment:Estimated Glomerular Filtration Rate (eGFR) is calculated using the 2020 CKD-EPI creatinine equation. This equation utilizes serum creatinine, sex, and age as parameters. The creatinine assay has traceable calibration to isotope dilution- mass spectrometry. Refer to KDIGO guidelines for clinical interpretation. In patients with unstable renal function, e.g. those with acute kidney injury, the eGFR may not accurately reflect actual GFR. Blood BLOOD SPECIMEN / Unknown Venipuncture / Unknown 11/30/2024 9:13 AM EDT 11/30/2024 9:13 AM EDT us Leandro Oneil MD LABORATORY Final Result [facility] [address] [place] [address] * COMPLETE BLOOD COUNT AND DIFFERENTIAL (11/30/2024 9:13 AM EDT) WBC 6.74 3.70 - 11.00 k/uL 11/30/2024 9:18 AM EDT [facility] RBC 4.71 4.20 - 6.00 m/uL 11/30/2024 9:18 AM EDT [facility] Hemoglobin 15.1 13.0 - 17.0 g/dL 11/30/2024 9:18 AM EDT [facility] Hematocrit 44.3 39.0 - 51.0 % 11/30/2024 9:18 AM EDT [facility] MCV 94.1 80.0 - 100.0 fL 11/30/2024 9:18 AM EDT [facility] MCH 32.1 26.0 - 34.0 pg 11/30/2024 9:18 AM EDT [facility] MCHC 34.1 30.5 - 36.0 g/dL 11/30/2024 9:18 AM EDT [facility] RDW-CV 12.7 11.5 - 15.0 % 11/30/2024 9:18 AM EDT [facility] Platelet Count 153 150 - 400 k/uL 11/30/2024 9:18 AM EDT [facility] MPV 9.0 9.0 - 12.7 fL 11/30/2024 9:18 AM EDT [facility] Neutrophils % 48.5 % 11/30/2024 9:18 AM EDT [facility] Abs Neut 3.27 1.45 - 7.50 k/uL 11/30/2024 9:18 AM EDT [facility] Lymphocytes % 40.2 % 11/30/2024 9:18 AM EDT [facility] Abs Lymph 2.71 1.00 - 4.00 k/uL 11/30/2024 9:18 AM EDT [facility] Monocytes % 8.0 % 11/30/2024 9:18 AM EDT [facility] Abs Rogers 0.54 <0.87 k/uL 11/30/2024 9:18 AM EDT [facility] Eosinophils % 2.4 % 11/30/2024 9:18 AM EDT [facility] Abs Eosin 0.16 <0.46 k/uL 11/30/2024 9:18 AM EDT [facility] Basophils % 0.6 % 11/30/2024 9:18 AM EDT [facility] Abs Baso 0.04 <0.11 k/uL 11/30/2024 9:18 AM EDT [facility] Immature Granulocytes % 0.3 % 11/30/2024 9:18 AM EDT [facility] Abs Immature Gran <0.03 <0.10 k/uL 11/30/ 025 9:18 AM EDT [facility] NRBC 0.0 /100 WBC 11/30/2024 9:18 AM EDT [facility] Absolute nRBC <0.01 <0.01 k/uL 11/30/2024 9:18 AM EDT [facility] Diff Type Auto 11/30/2024 9:18 AM EDT [facility] Blood BLOOD SPECIMEN / Unknown Venipuncture / Unknown 11/30/2024 9:13 AM EDT 11/30/2024 9:13 AM EDT Leandro Oneil MD LABORATORY Final Result [facility] [address] [place] [address] * (ABNORMAL) LIPID PANEL BASIC (12/02/2023 9:32 AM EDT) Cholesterol, Total 166 <200 mg/dL 12/02/2023 7:19 PM EDT [facility] Comment: <200 mg/dL, Desirable 200-239 mg/dL, Borderline high >239 mg/dL, High Triglyceride 122 <150 mg/dL 12/02/2023 7:19 PM EDT [facility] Comment: <150 mg/dL, Normal 150-199 mg/dL, Borderline high 200-499 mg/dL, High >499 mg/dL, Very high HDL Cholesterol 37(L) >39 mg/dL 7:19 PM EDT [facility] Comment: 40-59 mg/dL, Acceptable >59 mg/dL, High: Negative risk factor for coronary heart disease <40 mg/dL, Low: Positive risk factor for coronary heart disease Non HDL Cholesterol 129 <130 mg/dL 12/02/2023 7:19 PM EDT [facility] Comment: <130 mg/dL, Optimal 130-159 mg/dL, Near optimal/above optimal 160-189 mg/dL, Borderline high 190-219 mg/dL, High >219 mg/dL, Very high Secondary prevention optimal non HDL Cholesterol levels are recommended to be <100 mg/dL Fasting Time 12 hrs 12/02/2023 7:19 PM EDT [facility] VLDL Cholesterol 24 <30 mg/dL 12/02/19 7:19 PM EDT [facility] TC:HDL Ratio 4.49 <5.10 12/02/2023 7:19 PM EDT [facility] LDL Cholesterol, Calculated 105(H) <100 mg/dL 12/02/2023 7:19 PM EDT [facility] Comment: <100 mg/dL, Optimal 100-129 mg/dL, Near optimal/above optimal 130-159 mg/dL, Borderline high 160-189 mg/dL, High >189 mg/dL, Very high Secondary prevention optimal LDL Cholesterol levels are recommended to be < 70 mg/dL LDL:HDL Ratio 2.84(H) <2.54 12/02/2023 7:19 PM EDT [facility] Comment: Reference: 1. National Cholesterol Education Program ATP III Guideline At-A-Glance Quick Desk Reference: National Heart, Lung, and Blood [place]. National Institutes of Health. 2001: NIH Publication No. 01-3305. 2. An International Atherosclerosis Society position paper: global recommendations for the management of dyslipidemia: executive summary, Atherosclerosis. 2014: 232(2):410-413. Blood BLOOD SPECIMEN / Unknown Venipuncture / Unknown 12/02/2023 9:32 AM EDT 12/02/2023 9:32 AM EDT us Emanuel Scott MD LABORATORY Final Result [facility] [address] [facility] [address] [place] [address], [facility] [address] [place] [address] * (ABNORMAL) PSA/PROSTSPECAG DIAG (04/29/2023 10:48 AM EDT) PSA 4.94(H) <2.60 ng/mL 04/30/2023 2:11 AM EDT [facility] Comment: Total PSA test methodology used is [...] these factors. REFERENCE: Saw Alexander M.D., M.P.H., Adni Richardson M.D., Ph.D., Luca Estrella M.D., Ana Regalado, M.P.H., Carlie De Los Santos, Sc.[place]. Effect of Verification Bias on Screening for Prostate Cancer by Measurement of Prostatic Specific Antigen. N Engl J Med 2003,349:335-42. Blood BLOOD SPECIMEN / Unknown Venipuncture / Unknown 04/29/2023 10:48 AM EDT 04/29/2023 10:48 AM EDT us Giorgio Burks MD LABORATORY Final Resu lt [facility] [address] [place] [address], * HCV QUANT RNA BY PCR (01/23/2009 11:52 AM EDT) [facility] HCV RNA by PCR No HCV RNA Detected. [facility] Comment: The linear range of this assay is 600 IU/mL to 700,000 IU/mL. This test was developed and its performance characteristics determined by the Pathology and Laboratory Medicine [place] at the [facility]. The U.S. Food and Drug Administration has not approved or cleared this test, however, FDA clearance or approval is not currently required for clinical use. Blood specimen (specimen) BLOOD SPECIMEN / Unknown 01/23/2009 11:52 AM EDT us Carolina Nevarez MD LABORATORY Final Result [facility] [address] [place] [address] from Last 3 Months or Most Recently Relevant to Health Maintenance Insurance MEDICARE Mail Code [id number] [place] [id number] Care Teams Delivery And Installation Subcontractor Relationship Specialty Start Date End Date Arden Sams PA-C PCP - General Internal Medicine 07/06/18 Mehnaz Lowry, HAND ALTERATIONS TAILOR.BAKERY WORKER [address] [place] [address] Primary Staff Physician Nephrology 10/04/21
--- OUTSIDE RECORDS SUMMARY | 2025-02-27 12:36 | XMS_ITS | Encounter Summary ---
Author Organization [facility] Address [address] [place] [address] Care Team Providers Care Forcer Maker Name Role Phone Sukhwinder Gill Primary Care Provider U Brendan Scott NP Primary Care Provider [phone] Arden Sams PA-C Primary Care Provider Mehnaz Lowry APRN.KILN TESTER Unavailable [phone] Source Comments In the event this information is protected by the Federal Confidentiality of Alcohol and Drug AbusePatient Records regulations: The Federal rules restrict any use of the information to criminally investigate or prosecute any alcohol or drug abuse patient.[facility] Encounter Details Date Type Department Care Team (Late st Contact Info) Description 01/14/2017 Patient Msg Medical Records [address] [place] [address] Kristen Carnes Questionnaire Submission Social History Tobacco Use Types Packs/Day Years [...] 12:34 PM EDT Tobi, V kalpana L (Graduate School Dean), FARMWORKER GRAIN * Are you blind or do you have serious difficulty seeing, even when wearing glasses? Answer Date of Assessment Author No 12/28/2014 12:34 PM EDT Tobi, V kalpana L (Graduate School Dean), FARMWORKER GRAIN * Do you have serious difficulty walking or climbing stairs? Answer Date of Assessment Author No 12/28/2014 12:34 PM EDT Tobi, V kalpana L (Graduate School Dean), FARMWORKER GRAIN * Do you have difficulty dressing or bathing? Answer Date of Assessment Author No 12/28/2014 12:34 PM EDT Tobi, V kalpana L (Graduate School Dean), FARMWORKER GRAIN * Because of a physical, mental, or emotional condition, do you have difficulty doing errands alone such as visiting a doctor's office or shopping? Answer Date of Assessment Author No 12/28/2014 12:34 PM EDT Tobi, V kalpana L (Graduate School Dean), FARMWORKER GRAIN documented as of this encounter Mental Status * Because of a physical, mental, or emotional condition, do you have serious difficulty concentrating, remembering, or making decisions? Answer Entry Date Author No 12/28/2014 12:34 PM EDT Tobi, V kalpana L (Graduate School Dean), FARMWORKER GRAIN documented in this encounter Plan of Treatment Upcoming Encounters Date Type Department Care Team (Late st Contact Info) Description 03/01/2025 9:15 AM EDT Office Visit [facility] [address] [place] [address] lab 08/26/2025 1:00 PM EST Office Visit Cardiology [address] [facility] [place], [place] [phone] Emanuel Whitten MD [address] [facility] [place] [address] Return in about 7 months (around 08/26/2025). documented as of this encounter Visit Diagnoses Not on filedocumented in this encounter Care Teams Forcer Maker Relationship Specialty Start Date End Date Sukhwinder Gill PCP - General 05/14/07 07/06/17 Brendan Rivas NP [address] [place] [address] PCP - General Family Medicine 07/07/17 07/05/18 Arden Sams PA-C [address] [place] [address] PCP - General Internal Medicine 07/06/18 Mehnaz Lowry APRN.KILN TESTER [address] [place] [address] Primary Staff Physician Nephrology 10/04/21 documented as of this encounter
--- OUTSIDE RECORDS SUMMARY | 2025-02-27 12:36 | XMS_ITS | Encounter Summary ---
Author Organization [facility] Address [address] [place] [address] Care Team Providers Care Medication Tech Name Role Phone Arden Sams PA-C Primary Care Provider Mehnaz Lowry APRN.CHANGE RELEASE MANAGER Unavailable [phone] Source Comments In the event this information is protected by the Federal Confidentiality of Alcohol and Drug AbusePatient Records regulations: The Federal rules restrict any use of the information to criminally investigate or prosecute any alcohol or drug abuse patient.[facility] Encounter Details Date Type Department Care Team (Late st Contact Info) Description 02/07/2022 Get Medical Advice Urology [address] [phone] Giorgio Burks MD [address] [place] [address] Blood test Social History Tobacco Use Types Packs/Day Years [...] N ot on file 01/25/2022 Data from: https://www.neighborhoodatlas.[facility].edu/. Last address used for calculation [address] [place] [...] 12:34 PM EDT Tobi, V kalpana L (Tactical Intelligence Officer), DISTRICT OPERATIONS MANAGER * Are you blind or do you have serious difficulty seeing, even when wearing glasses? Answer Date of Assessment Author No 12/28/2014 12:34 PM EDT Tobi, V kalpana L (Tactical Intelligence Officer), DISTRICT OPERATIONS MANAGER * Do you have serious difficulty walking or climbing stairs? Answer Date of Assessment Author No 12/28/2014 12:34 PM EDT Tobi, V kalpana L (Tactical Intelligence Officer), DISTRICT OPERATIONS MANAGER * Do you have difficulty dressing or bathing? Answer Date of Assessment Author No 12/28/2014 12:34 PM EDT Tobi, V kalpana L (Tactical Intelligence Officer), DISTRICT OPERATIONS MANAGER * Because of a physical, mental, or emotional condition, do you have difficulty doing errands alone such as visiting a doctor's office or shopping? Answer Date of Assessment Author No 12/28/2014 12:34 PM EDT Tobi, V kalpana L (Tactical Intelligence Officer), DISTRICT OPERATIONS MANAGER documented as of this encounter Mental Status * Because of a physical, mental, or emotional condition, do you have serious difficulty concentrating, remembering, or making decisions? Answer Entry Date Author No 12/28/2014 12:34 PM EDT Tobi, V kalpana L (Tactical Intelligence Officer), DISTRICT OPERATIONS MANAGER documented in this encounter Plan of Treatment Upcoming Encounters Date Type Department Care Team (Late st Contact Info) Description 03/01/2025 9:15 AM EDT Office Visit [facility] [address] [place] [address] [place] [address] lab 08/26/2025 1:00 PM EST Office Visit Cardiology [address] [facility] [place] [address] Emanuel Whitten MD [address] [facility] [place], [place] [phone] Return in about 7 months (around 08/26/2025). documented as of this encounter Visit Diagnoses Not on filedocumented in this encounter Care Teams Medication Tech Relationship Specialty Start Date End Date Arden Sams PA-C PCP - General Internal Medicine 07/06/18 Mehnaz Lowry, SUBSURFACE AUGMENTEE OPERATOR.CHANGE RELEASE MANAGER [address] [place] [address] Primary Staff Physician Nephrology 10/04/21 documented as of this encounter
--- OUTSIDE RECORDS SUMMARY | 2025-02-27 12:36 | XMS_ITS | Encounter Summary ---
Author Organization [facility] Address [address] [place] [address] Care Team Providers Care Brine Tank Operator Name Role Phone Arden Sams PA-C Primary Care Provider Mehnaz Lowry APRN.COLLAR SETTER Unavailable [phone] Source Comments In the event this information is protected by the Federal Confidentiality of Alcohol and Drug AbusePatient Records regulations: The Federal rules restrict any use of the information to criminally investigate or prosecute any alcohol or drug abuse patient.[facility] Encounter Details Date Type Department Care Team (Late st Contact Info) Description 11/22/2024 Patient Msg Transplant Center [address] [phone] Mary Vasques RN KIDNEY NIGHT- JOIN US ON ZOOM Social History Tobacco Use Types Packs/Day Years [...] N ot on file 09/20/2022 Data from: https://www.[facility]/. Last address used for calculation [address] [...] Author No 03/06/2024 11:12 AM EDT Zhanna Loazda RN documented in this encounter Plan of Treatment Upcoming Encounters Date Type Department Care Team (Late st Contact Info) Description 03/01/2025 9:15 AM EDT Office Visit [facility] [address] [place] [address] [place] [address] lab 08/26/2025 1:00 PM EST Office Visit Cardiology [address] [facility] [address] [place] [address] Emanuel Whitten MD [address] [facility] [place], [place] [id number] Return in about 7 months (around 08/26/2025). documented as of this encounter Goals Goal Patient Goal Type Associated Problems Recent Progress Patient-Stated? Author Blood Pressure < 130/80 Blood Pressure 116/76( 025 2:56 PM EDT) No Amanda Ramirez MA documented as of this encounter Visit Diagnoses Not on filedocumented in this encounter Care Teams Brine Tank Operator Relationship Specialty Start Date End Date Arden Sams PA-C PCP - General Internal Medicine 07/06/18 Mehnaz Lowry APRN.[facility] [address] [facility] [place] [address] Primary Staff Physician Nephrology 10/04/21 documented as of this encounter
--- OUTSIDE RECORDS SUMMARY | 2025-02-27 12:36 | XMS_ITS | Clinical Summary ---
Author Organization [employer] Address [id number] [address] [place] [address] Care Team Providers Care Television Script Writer Name Role Phone Arden Sams PA-C Primary Care Provider [phone] Allergies No known active allergies Medications acetaminophen (TYLENOL EXTRA STRENGTH) 500 mg tablet Take by mouth. 10/05/19 10 Active calcium carbonate-vitam in D3 600-125 mg-unit tablet Take by mouth. Active predniSONE (DELTASONE) 5 mg tablet Take 5 mg by mouth. 04/20/20 17 Active mycophenolate (CELLCEPT) 250 mg capsule Take 500 mg by mouth. 06/27/20 17 Active magnesium oxide (MAG-OX) 400 mg tablet Take 400 mg by mouth. 05/27/20 14 Active sulfamethoxazol e-trimethoprim (BACTRIM,SEPTRA ) 400-80 mg per tablet Take 1 tablet by mouth. 04/20/20 17 Active tacrolimus (PROGRAF) 1 mg capsule Take 2 capsules by mouth every morning and 1 capsule by mouth every night (Take 12 hours apart) 06/27/20 17 Active hydrOXYzine (ATARAX) 25 mg tablet take 1 to 2 tablets by mouth three times a day if needed for ACUTE ANXIETY 01/19/20 20 Active bisacodyL (DULCOLAX) 10 mg suppository Insert 1 suppository (10 mg total) into the rectum in the morning. 12 suppository 04/20/20 22 Active Active Problems No known active problems Social History Tobacco Use Types Packs/Day Years Used Date Smoking Tobacco: Never Smokeless Tobacco: Never Alcohol Use Standard Drinks/Week Comments No 0 (1 standard drink = 0.6 oz pur e alcohol) Childcare Answer Date Recorded Childcare Unknown 02/17/2019 Employment Answer Date Recorded Employment Unknown 02/17/2019 Purpose - Life Answer Date Recorded Purpose and direction in life Unknown Sex and Gender Information Value Date Recorded Sex Assigned at Not on file Legal Sex Male 11:38 AM EDT Gender Identity Not on file Sexual Orientation Not on file Last Filed Vital Signs Vital Sign Reading Time Taken Comments Blood Pressure 158/77 04/20/2022 9:02 AM EDT Pulse 109 04/20/2022 9:02 AM EDT Temperature 36.8 C (98.3 F) 04/20/2022 9:02 AM EDT Respiratory Rate 20 04/20/2022 9:02 AM EDT Oxygen Saturation 95% 04/20/2022 9:02 AM EDT Inhaled Oxygen Concentration - - Weight 145.2 kg (320 lb) 04/20/2022 9:02 AM EDT Height 213.4 cm (7') 04/20/2022 9:02 AM EDT Body Mass Index 31.89 04/20/2022 9:02 AM EDT Plan of Treatment Health Maintenance Due Date Last Done Comments Depression Screening 1969 Tobacco Screening 1969 DTaP,Tdap and Td Vaccines (1 - Tdap) 1976 Zoster (Shingles) Vaccine (1 of 2) 2007 Fall Risk Screening 2022 Adult BMI Screening 04/20/2023 04/20/2022 Influenza Vaccine 05/09/2025 07/05/2021, , 06/21/2020, Additional history exists Medical Devices Not on file Insurance WORKER'S COMPENSATION Care Teams Television Script Writer Relationship Specialty Start Date End Date Arden Sams PA-C [address] [place] [address] PCP - General Physician Educational Paraprofessional 06/06/18
--- OUTSIDE RECORDS SUMMARY | 2025-02-27 12:36 | XMS_ITS | Encounter Summary ---
Author Organization [facility] Address [address] [place] [address] Care Team Providers Care Dedicated Intermodal Truck Driver Name Role Phone Arden Sams PA-C Primary Care Provider Mehnaz Lowry APRN.MASTIC WORKER Unavailable [phone] Source Comments In the event this information is protected by the Federal Confidentiality of Alcohol and Drug AbusePatient Records regulations: The Federal rules restrict any use of the information to criminally investigate or prosecute any alcohol or drug abuse patient.[facility] Encounter Details Date Type Department Care Team (Late st Contact Info) Description 05/29/2022 Get Medical Advice Kidney Medicine [facility] [address] [phone] Mehnaz Lowry, BLASTING CAP ASSEMBLER.MASTIC WORKER [address] [place] [address] bloodwork Social History Tobacco Use Types Packs/Day Years [...] N ot on file 01/25/2022 Data from: https://www.neighborhoodatlas.medicine.[facility]/. Last address used for [...] 12:34 PM EDT Tobi, V kalpana L (Clinic Physician Director), MUD CAR WORKER * Are you blind or do you have serious difficulty seeing, even when wearing glasses? Answer Date of Assessment Author No 12/28/2014 12:34 PM EDT Tobi, V kalpana L (Clinic Physician Director), MUD CAR WORKER * Do you have serious difficulty walking or climbing stairs? Answer Date of Assessment Author No 12/28/2014 12:34 PM EDT Tobi, V kalpana L (Clinic Physician Director), MUD CAR WORKER * Do you have difficulty dressing or bathing? Answer Date of Assessment Author No 12/28/2014 12:34 PM EDT Tobi, V kalpana L (Clinic Physician Director), MUD CAR WORKER * Because of a physical, mental, or emotional condition, do you have difficulty doing errands alone such as visiting a doctor's office or shopping? Answer Date of Assessment Author No 12/28/2014 12:34 PM EDT Tobi, V kalpana L (Clinic Physician Director), MUD CAR WORKER documented as of this encounter Mental Status * Because of a physical, mental, or emotional condition, do you have serious difficulty concentrating, remembering, or making decisions? Answer Entry Date Author No 12/28/2014 12:34 PM EDT Tobi, V kalpana L (Clinic Physician Director), MUD CAR WORKER documented in this encounter Plan of Treatment Upcoming Encounters Date Type Department Care Team (Late st Contact Info) Description 03/01/2025 9:15 AM EDT Office Visit [facility] [address] [place] [address] [place] [address] lab 08/26/2025 1:00 PM EST Office Visit Cardiology [address] [facility] [place] [address] Emanuel Whitten MD [address] [facility] [place] [phone] Return in about 7 months (around 08/26/2025). documented as of this encounter Visit Diagnoses Not on filedocumented in this encounter Care Teams Dedicated Intermodal Truck Driver Relationship Specialty Start Date End Date Arden Sams PA-C PCP - General Internal Medicine 07/06/18 Mehnaz Lowry APRN.MASTIC WORKER [address] [place] [address] Primary Staff Physician Nephrology 10/04/21 documented as of this encounter
--- OUTSIDE RECORDS SUMMARY | 2025-02-27 12:36 | XMS_ITS | Encounter Summary ---
Author Organization [facility] Address [facility] [place] [address] Care Team Providers Care Offset Press Assistant Name Role Phone Brendan Rivas NP Primary Care Provider [phone] Arden Sams PA-C Primary Care Provider Mehnaz Lowry BUSINESS ADVISOR.ENVIRONMENTAL AID Unavailable [phone] Source Comments In the event this information is protected by the Federal Confidentiality of Alcohol and Drug AbusePatient Records regulations: The Federal rules restrict any use of the information to criminally investigate or prosecute any alcohol or drug abuse patient.[facility] Encounter Details Date Type Department Care Team (Late st Contact Info) Description 03/01/2018 Patient Msg Kidney Medicine [facility] [address] [phone] Mehnaz Lowry, BUSINESS ADVISOR.ENVIRONMENTAL AID [address] [place] [address] RE: Request an Appointment Social [...] 12:34 PM EDT Tobi, V kalpana L (Cable Assembler), PRESIDENT [employer] * Are you blind or do you have serious difficulty seeing, even when wearing glasses? Answer Date of Assessment Author No 12/28/2014 12:34 PM EDT Tobi, V kalpana L (Cable Assembler), PRESIDENT [employer] * Do you have serious difficulty walking or climbing stairs? Answer Date of Assessment Author No 12/28/2014 12:34 PM EDT Tobi, V kalpana L (Cable Assembler), PRESIDENT [employer] * Do you have difficulty dressing or bathing? Answer Date of Assessment Author No 12/28/2014 12:34 PM EDT Tobi, V kalpana L (Cable Assembler), PRESIDENT [employer] * Because of a physical, mental, or emotional condition, do you have difficulty doing errands alone such as visiting a doctor's office or shopping? Answer Date of Assessment Author No 12/28/2014 12:34 PM EDT Tobi, V kalpana L (Cable Assembler), PRESIDENT [employer] documented as of this encounter Mental Status * Because of a physical, mental, or emotional condition, do you have serious difficulty concentrating, remembering, or making decisions? Answer Entry Date Author No 12/28/2014 12:34 PM EDT Tobi, V kalpana L (Cable Assembler), PRESIDENT [employer] documented in this encounter Plan of Treatment Upcoming Encounters Date Type Department Care Team (Late st Contact Info) Description 03/01/2025 9:15 AM EDT Office Visit [facility] [address] [place] [address] [place] [address] lab 08/26/2025 1:00 PM EST Office Visit Cardiology [address] [facility] [place] [address] Emanuel Whitten MD [address] [facility] [place], [place] [phone] Return in about 7 months (around 08/26/2025). documented as of this encounter Visit Diagnoses Not on filedocumented in this encounter Care Teams Offset Press Assistant Relationship Specialty Start Date End Date Brendan Rivas NP [address] [place] [address] PCP - General Family Medicine 07/07/17 07/05/18 Arden Sams PA-C [address] [place] [address] PCP - General Internal Medicine 07/06/18 Mehnaz Lowry APRN.ENVIRONMENTAL AID [address] [place] [address] Primary Staff Physician Nephrology 10/04/21 documented as of this encounter
--- OUTSIDE RECORDS SUMMARY | 2025-02-27 12:36 | XMS_ITS | Encounter Summary ---
Author Organization [facility] Address [address] [place] [address] Care Team Providers Care Financial Foundations Representative Name Role Phone Arden Sams PA-C Primary Care Provider Mehnaz Lowry APRN.CIRCUIT MANAGER Unavailable [phone] Source Comments In the event this information is protected by the Federal Confidentiality of Alcohol and Drug AbusePatient Records regulations: The Federal rules restrict any use of the information to criminally investigate or prosecute any alcohol or drug abuse patient.[facility] Encounter Details Date Type Department Care Team (Late st Contact Info) Description 01/16/2022 Patient Msg Urology [address] [phone] Dorcas Haider, ASSISTANT FIELD HOCKEY COACH.CIRCUIT MANAGER [address] [facility] [place], [address] [place] [address] PSA Results Social History Tobacco Use Types Packs/Day Years [...] N ot on file 08/14/2020 Data from: https://www.neighborhoodatlas.medicine.[facility]/. Last address used for calculation Not on [...] 12:34 PM EDT Tobi, V kalpana L (Supervisor Die Casting), PAYROLL ADMINISTRATIVE ASSISTANT * Are you blind or do you have serious difficulty seeing, even when wearing glasses? Answer Date of Assessment Author No 12/28/2014 12:34 PM EDT Tobi, V kalpana L (Supervisor Die Casting), PAYROLL ADMINISTRATIVE ASSISTANT * Do you have serious difficulty walking or climbing stairs? Answer Date of Assessment Author No 12/28/2014 12:34 PM EDT Tobi, V kalpana L (Supervisor Die Casting), PAYROLL ADMINISTRATIVE ASSISTANT * Do you have difficulty dressing or bathing? Answer Date of Assessment Author No 12/28/2014 12:34 PM EDT Tobi, V kalpana L (Supervisor Die Casting), PAYROLL ADMINISTRATIVE ASSISTANT * Because of a physical, mental, or emotional condition, do you have difficulty doing errands alone such as visiting a doctor's office or shopping? Answer Date of Assessment Author No 12/28/2014 12:34 PM EDT Tobi, V kalpana L (Supervisor Die Casting), PAYROLL ADMINISTRATIVE ASSISTANT documented as of this encounter Mental Status * Because of a physical, mental, or emotional condition, do you have serious difficulty concentrating, remembering, or making decisions? Answer Entry Date Author No 12/28/2014 12:34 PM EDT Tobi, V kalpana L (Supervisor Die Casting), PAYROLL ADMINISTRATIVE ASSISTANT documented in this encounter Plan of Treatment Upcoming Encounters Date Type Department Care Team (Late st Contact Info) Description 03/01/2025 9:15 AM EDT Office Visit [facility] [address] [place] [address] [place] [address] lab 08/26/2025 1:00 PM EST Office Visit Cardiology [address] [facility] [address] [place], [place] [phone] Emanuel Whitten MD [address] [facility] [place], [place] [phone] Return in about 7 months (around 08/26/2025). documented as of this encounter Visit Diagnoses Not on filedocumented in this encounter Care Teams Financial Foundations Representative Relationship Specialty Start Date End Date Arden Sams PA-C PCP - General Internal Medicine 07/06/18 Mehnaz Lowry, CONG.CIRCUIT MANAGER [address] [place] [address] Primary Staff Physician Nephrology 10/04/21 documented as of this encounter
--- OUTSIDE RECORDS SUMMARY | 2025-02-27 12:36 | XMS_ITS | Encounter Summary ---
Author Organization [facility] Address [address] [place] [address] Care Team Providers Care Environmental Protection Geologist Name Role Phone Arden Sams PA-C Primary Care Provider Mehnaz Lowry APRN.MANAGER CLINIC Unavailable [phone] Source Comments In the event this information is protected by the Federal Confidentiality of Alcohol and Drug AbusePatient Records regulations: The Federal rules restrict any use of the information to criminally investigate or prosecute any alcohol or drug abuse patient.[facility] Encounter Details Date Type Department Care Team (Late st Contact Info) Description 12/22/2022 Patient Msg Kidney Medicine [facility] [address] [id number] Mehnaz Lowry, BLINDSTITCH HEMMER.MANAGER CLINIC [address] [place] [address] Appointment Request Social History Tobacco Use Types Packs/Day [...] N ot on file 09/20/2022 Data from: https://www.neighborhoodatlas.medicine.[facility]/. Last address used for calculation Tori [place] [...] 12:34 PM EDT Tobi, V kalpana L (Asset Protection Representative), STEREO PLOTTER OPERATOR * Are you blind or do you have serious difficulty seeing, even when wearing glasses? Answer Date of Assessment Author No 12/28/2014 12:34 PM EDT Tobi, V kalpana L (Asset Protection Representative), STEREO PLOTTER OPERATOR * Do you have serious difficulty walking or climbing stairs? Answer Date of Assessment Author No 12/28/2014 12:34 PM EDT Tobi, V kalpana L (Asset Protection Representative), STEREO PLOTTER OPERATOR * Do you have difficulty dressing or bathing? Answer Date of Assessment Author No 12/28/2014 12:34 PM EDT Tobi, V kalpana L (Asset Protection Representative), STEREO PLOTTER OPERATOR * Because of a physical, mental, or emotional condition, do you have difficulty doing errands alone such as visiting a doctor's office or shopping? Answer Date of Assessment Author No 12/28/2014 12:34 PM EDT Tobi, V kalpana L (Asset Protection Representative), STEREO PLOTTER OPERATOR documented as of this encounter Mental Status * Because of a physical, mental, or emotional condition, do you have serious difficulty concentrating, remembering, or making decisions? Answer Entry Date Author No 12/28/2014 12:34 PM EDT Tobi, V kalpana L (Asset Protection Representative), STEREO PLOTTER OPERATOR documented in this encounter Plan of Treatment Upcoming Encounters Date Type Department Care Team (Late st Contact Info) Description 03/01/2025 9:15 AM EDT Office Visit [facility] [address] [place] [address] [place] [address] lab 08/26/2025 1:00 PM EST Office Visit Cardiology [address] [place] [address] Emanuel Whitten MD [address] [facility] [place] [phone] Return in about 7 months (around 08/26/2025). documented as of this encounter Visit Diagnoses Not on filedocumented in this encounter Care Teams Environmental Protection Geologist Relationship Specialty Start Date End Date Arden Sams PA-C PCP - General Internal Medicine 07/06/18 Mehnaz Lowry APRN.MANAGER CLINIC [address] [place] [address] Primary Staff Physician Nephrology 10/04/21 documented as of this encounter
--- NOTE | 2025-02-27 13:07 | ED.EAR1 ---
HPI - Ear Problem General Chief complaint: Ear Stated complaint: EAR INFECTION Time Seen by Provider: 02/27/25 12:40 History of Present Illness HPI Narrative: The patient came to the ER with a right ear pain and difficulty hearing for the last 24 hours, patient mentioned he denies any fever chills or any other concern that he had been having right ear pain with some decrease in hearing, the patient denies any nausea vomiting or any other concern He also mentioned that he was working yesterday on the sun doing some lawn work Related Data Home Medications ?Medication ?Instructions ?Recorded ?Confirmed aspirin 81 mg tablet,delayed 81 mg PO DAILY 07/10/23 03/11/24 release (Adult Aspirin Regimen) mycophenolate mofetil 250 mg 500 mg PO Q12H 07/10/23 03/11/24 capsule prednisone 5 mg tablet 5 mg PO DAILY 07/10/23 03/11/24 sulfamethoxazole 400 1 tab PO DAILY 07/10/23 03/11/24 mg-trimethoprim 80 mg tablet tacrolimus 1 mg capsule, 1 mg PO Q12H 07/10/23 03/11/24 immediate-release gabapentin 300 mg capsule mg 03/11/24 hydroxyzine HCl 25 mg tablet mg 03/11/24 metoprolol tartrate 25 mg tablet mg 03/11/24 sucralfate 1 gram tablet 03/11/24 Previous Rx's ?Medication ?Instructions ?Recorded hydroxyzine pamoate 25 mg capsule 25 mg PO Q8H PRN anxiety #15 caps 07/10/23 (Vistaril) amoxicillin 875 mg-potassium 1 tab PO Q12H #14 tabs 02/27/25 clavulanate 125 mg tablet Allergies Allergy/AdvReac Type Severity Reaction Status Date / Time No Known Drug Allergies Allergy Verified 02/27/25 12:30 Review of Systems ROS Status of ROS 10 or more systems reviewed and unremarkable except as noted in history and below PFS PFS Social History Smoking status: Never smoker Little interest or pleasure in doing things: not at all Feeling down, depressed, or hopeless: not at all Exam Narrative Exam Narrative: Nurses notes and vital signs reviewed and patient is not hypoxic. General: Well-appearing and in no apparent distress. Skin: Warm, dry, no pallor noted. No rash. Head: Normocephalic, atraumatic. Neck: Supple, non-tender. Eye: Pupils are equal, round and EOMI. No scleral icterus. Ears, Nose, Mouth, and Throat: Left ear examination is benign right ear examination showed that the patient have a the external auricle have some mild redness mostly at the periphery which could be secondary to allergy and also can be secondary to mild cellulitis, the patient also had the tympanic membrane bulging with serous fluid behind it,, no nasal mucosal hypertrophy. Oral mucosa is moist, no posterior oropharynx erythema, uvula is mid-line Cardiovascular: Regular Rate and Rhythm without murmur, gallop or rub. Respiratory: No accessory muscle use or respiratory distress. Lungs are clear to auscultation, no wheezing, rales or rhonchi Chest Wall: no tenderness Back: No midline thoracic or lumbar vertebral tenderness. No CVA tenderness Musculoskeletal: normal ROM, no calf or popliteal tenderness, no lower extremity edema/swelling GI: Abdomen is soft, non-distended. Normal bowel sounds. No masses appreciated. No tenderness to palpation. No rebound, guarding, or rigidity noted. Neurological: A&O x4. No cranial nerve dysfunction observed. Constitutional Vital Signs, click to edit/add: Last Vital Signs Temp 98 F 02/27/25 12:30 Pulse 69 02/27/25 12:30 Resp 18 02/27/25 12:30 BP 158/92 H 02/27/25 12:30 O2 Del Method Room Air 02/27/25 12:30 Course Vital Signs Vital signs: Vital Signs Temperature 98 F 02/27/25 12:30 Pulse Rate 69 02/27/25 12:30 Respiratory Rate 18 02/27/25 12:30 Blood Pressure 158/92 H 02/27/25 12:30 Oxygen Delivery Method Room Air 02/27/25 12:30 Temperature 98 F 02/27/25 12:30 Pulse Rate 69 02/27/25 12:30 Respiratory Rate 18 02/27/25 12:30 Blood Pressure 158/92 H 02/27/25 12:30 Oxygen Delivery Method Room Air 02/27/25 12:30 Medical Decision Making MDM Narrative Medical decision making narrative: The patient is having cellulitis of his right auricle externally and otitis media mostly The patient was started on Augmentin as a treatment for otitis media and cellulitis instructed about monitoring symptoms Patient also to make sure that he is wearing strong sun protection while he is outside The patient is to follow up with primary care physician in next 2-3 days or to return to the emergency department should any of the signs or symptoms worsen or new symptoms develop. The patient agrees with the following Diagnosis and Treatment plan and the patient will be discharged home. Discharge Plan Discharge Chief Complaint: Ear Clinical Impression: Otitis media, Cellulitis of auricle of right ear Patient Disposition: Home, Self-Care Time of Disposition Decision: 13:06 Condition: Good Mode of Transportation: Private Vehicle Prescriptions / Home Meds: New amoxicillin-pot clavulanate 875-125 mg tablet 1 tab PO Q12H Qty: 14 0RF No Action sucralfate 1 gram tablet gabapentin 300 mg capsule hydroxyzine HCl 25 mg tablet metoprolol tartrate 25 mg tablet tacrolimus 1 mg capsule 1 mg PO Q12H mycophenolate mofetil 250 mg capsule 500 mg PO Q12H sulfamethoxazole-trimethoprim 400-80 mg tablet 1 tab PO DAILY prednisone 5 mg tablet 5 mg PO DAILY aspirin [Adult Aspirin Regimen] 81 mg tablet,delayed release (DR/EC) 81 mg PO DAILY hydroxyzine pamoate [Vistaril] 25 mg capsule 25 mg PO Q8H PRN (Reason: anxiety) Qty: 15 0RF Print Language: [place]ian Instructions: Cellulitis (ED), Ear Infection (ED) Referrals: [facility] [Primary Care Provider] - 1 week Discharge Date/Time: 02/27/25 13:19
== END 2025-02-27 13:19 | disposition home or self-care (01) ==
PROVIDERS: Emergency Provider Emergency Medicine
DX: H66.91 Otitis media, unspecified, right ear (principal); H60.11 Cellulitis of right external ear
CPT/HCPCS: 99283

== ENCOUNTER 2025-04-25 14:26 | Emergency (ER) | payer MEDICARE, OTHER, SELFPAY ==
--- OUTSIDE RECORDS SUMMARY | 2024-05-18 08:45 | XMS_ITS ---
Author Organization [facility] in [place] Address [address] [place] [address] Care Team Providers Care Buckle Sewer Machine Name Role Phone None, Unknown or Primary Care Provider Unavailab Jordan Vazquez Unavailable [phone] Allergies No Known Allergies Reason For Referral Reason evaluation and treat ment -- see attached order Diagnosis 1 Varicose veins of le ft lower extremity with other complications (I83.892) Referral Organization [facility] (PODIATRY) Referring Provider First Name Jordan Referring [...] Problem Status W/U Status Risk Notes Problem 474070902 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) Active confirmed Problem [id number] Lymphedema, not elsewhere classified (I89.0) Active confirmed Problem [id number] Sciatica, left side (M54.32) Active confirmed Vital Signs Temperature 97.5 degrees Fahrenheit 05/18/20 Heart Rate 76 /min 05/18/2024 Height 83.5 in 05/18/2024 Weight 350 lbs 05/18/2024 BMI 35.29 kg/m2 05/18/2024 Oximetry 97 % 05/18/2024 Encounters Encounter Location Date Provider Diagnosis [facility] (PODIATRY) [address] [place] [address] [place] [address] 05/18/2024 Jordan Keyes Varicose veins of left [...] treatment -- see attached order, Physical Therapy [facility] Progress Notes * Nomi ROSEN WDOB: [birth year] (68 yo M)Acc No.[id number]:05/18/2024 Follow Up Patient: Nomi CARRASCO Provider: Alberto Keyes DPM MS :1955 A ge:68 Y S ex:Male Date:05/18/2024 Address:[address] [place], [place] [id number] Pcp:Unknown or None Check In:12:49 PM ESTCheck [...] 05/18/2024 Generated for Flaco lawson/Loren/Mohsenitting on: 0 04/25/2025 02:32 PM EDT History and Physical Notes * [...] Referred Provider Not es 05/18/2024 Jordan Keyes [facility], Physical Therapy e valuation and treatment -- see attached order
--- OUTSIDE RECORDS SUMMARY | 2024-06-29 06:45 | XMS_ITS ---
Author Organization [facility] in [place] Address [address] [place] [address] Care Team Providers Care Sanding Machine Tender Automatic Name Role Phone None, Unknown or Primary Care Provider Unavailab Jordan Vazquez Unavailable [phone] Allergies No Known Allergies REASON FOR VISIT [...] Answer Notes Tobacco use: Nonsmoker Vital Signs Temperature 98.2 degrees Fahrenheit 06/29/20 24 Heart Rate 87 /min 06/29/2024 Height 83.5 in 06/29/2024 Weight 350 lbs 06/29/2024 BMI 35.29 kg/m2 06/29/2024 Oximetry 98 % 06/29/2024 Encounters Encounter Location Date Provider Diagnosis [facility] (PODIATRY) [address] [place] [address] [place] [address] 06/29/2024 Jordan Keyes Varicose veins of left [...] Nomi ROSEN WDOB: [birth year] (69 yo M)Acc No.[id number]:06/29/2024 Follow Up Patient: Nomi CARRASCO Provider: Alberto Keyes DPM MS :1955 A ge:69 Y S ex:Male Date:06/29/2024 Address:[address] [place], [place] [id number] Pcp:Unknown or None Check In:10:34 AM ESTCheck [...] MS Date: Generated for Flaco lawson/Loren/Mike on: 04/25/2025 02:31 PM EDT History and Physical Notes * [...]
--- OUTSIDE RECORDS SUMMARY | 2024-09-06 06:30 | XMS_ITS ---
Author Organization [facility] Address [address] [place] [place] [id number] Care Team Providers Care Stamping Press Operator Name Role Phone Jena Hunter Primary Care Provider Renae Bowen [phone] REASON FOR VISIT 6 month Edema, Anxiety Social History Sex Assigned At : Social History Observation Description Sex Assigned At Male Encounters Encounter Location Date Provider Diagnosis Main [address] [place], [place] [id number] 09/06/2024 Renae Bowen Plan Of Treatment Next Appt Details Provider Name:Jena coronel, 08/29/2025 11:00:00 AM, [address] [place], [id number], Progress Notes * Nomi ROSEN WDOB: [birth year] (69 yo M)Acc No.[id number]:09/06/2024 Medical Note Patient: Shobha CHARITYMATTHEW Nomi Puri Provider: Shobha Patino, MSN, CAD TECHNICIAN, SKIAGRAPHER-C :1955 A ge:69 Y S ex:Male Date:09/06/2024 Address:[address] [place], [place] Pcp:Jena Hunter Subjective: * Chief Complaints: * 1 . 6 month Edema, Anxiety. * Medical History: Objective: * Vitals: Assessment: Plan: * Treatment: * Billing Information: * Visit Code: * Procedure Codes: * Electronic signature of OLU Morales on 04/25/2025 at 02:32 PM EDT Sign off status: Pending * Provider: MICHAEL White, CAD TECHNICIAN, OLU Date: 1 Generated for Printing/Faxing/eTransmitting on: 0 04/25/2025 02:32 PM EDT
[2025-04-25 14:31] VITALS: BP 132/89; PULSE 78; TEMP 36.9; O2SAT 99; BMI 34.9
--- OUTSIDE RECORDS SUMMARY | 2025-04-25 14:32 | XMS_ITS | Patient Health Record ---
Author Organization [facility] [place] Address [address] [place] [address] Care Team Providers Care Folder Gluer Operator Name Role Phone None, Unknown or Primary Care Provider Unavailab Chrissy Vazquez Unavailable [phone] Allergies No Known Allergies Results Component Value Reference Range Notes XR foot LT min 3V (Not yet r eviewed by provider) Interpretation: Performing Lab: Notes/Report: Source Facility: [place] [address] XRay Report Signed Patient: LINK ROSEN MR#: [id number] : 1955 Acct:[id number] Age/Sex: 68 / M ADM Date: 05/18/24 Loc: EC Attending Dr: Chrissy Keyes D.P.M. Ordering Physician: Chrissy Keyes D.P.M. Date of Service: 05/18/24 Procedure(s): XR foot LT min 3V Accession Number(s): [id number] cc: Chrissy Keyes D.P.M.; Physician,Non-Staff Ari[address] [address] Patient Name: LINK ROSEN MRN: [id number] date: 1955 Sex: M Assigned Patient Location: EC Current Patient Location: Accession/Order Number: [id number] Exam Date: 05/18/2024 12:55 Report Date: 05/19/2024 [...] M.D. Signed By: 05/19/24847 DD/ 5 TD/TT: Power Washer: [place] [address] XRay Report Signed Patient: RAVI ROSEN MR#: [id number] : 1955 Acct:[id number] Age/Sex: 68 / M ADM Date: 05/18/24 Loc: EC Attending Dr: Chrissy Keyes D.P.M. Ordering Physician: Chrissy Keyes D.P.M. Date of Service: 05/18/24 Procedure(s): XR foot LT min 3V Accession Number(s): [id number] cc: Chrissy Keyes D.P.M.; Physician,Non-Staff [address] [id number] Patient Name: LINK ROSEN MRN: [id number] date: 1955 Sex: M Assigned Patient Location: EC Current Patient Location: Accession/Order Numb er: [id number] Exam Date: 05/18/2024 12:55 Report Date: 05/19/2024 [...] M.D. Signed By: 05/19/24847 DD/ 5 TD/TT: Power Washer: XR ankle LT min 3V (Not yet reviewed by provider) Interpretation: Performing Lab: Notes/Report: Source Facility: [place] [address] XRay Report Signed Patient: LINK ROSEN MR#: [id number] : 1955 Acct:[id number] Age/Sex: 68 / M ADM Date: 05/18/24 Loc: EC Attending Dr: Chrissy Keyes D.P.M. Ordering Physician: Chrissy Keyes D.P.M. Date of Service: 05/18/24 Procedure(s): XR ankle LT min 3V Accession Number(s): [id number] cc: Chrissy Keyes D.P.M.; Physician,Non-Staff Arianna [address] [address] Patient Name: LINK ROSEN MRN: [id number] date: 1955 Sex: M Assigned Patient Location: Current Patient Location: Accession/Order Number: [id number] Exam Date: 05/18/2024 12:55 Report Date: 05/19/2024 [...] M.D. Signed By: 05/19/24847 DD/ 5 TD/TT: Power Washer: [place] [address] XRay Report Signed Patient: RAVI ROSEN MR#: [id number] : 1955 Acct:[id number] Age/Sex: 68 / M ADM Date: 05/18/24 Loc: EC Attending Dr: Chrissy Keyes D.P.M. Ordering Physician: Chrissy Keyes D.P.M. Date of Service: 05/18/24 Procedure(s): XR ank le LT min 3V Accession Number(s): [id number] cc: Chrissy Keyes D.P.M.; Physician,Non-Staff Arianna [address] [address] Patient Name: LINK ROSEN MRN: [id number] date: 1955 Sex: M Assigned Patient Location: EC Current Patient Location: Accession/Order Numb er: [id number] Exam Date: 05/18/2024 12:55 Report Date: 05/19/2024 [...] M.D. Signed By: 05/19/24847 DD/ 5 TD/TT: Power Washer: Reason For Referral Reason evaluation and treat ment -- see attached order Diagnosis 1 Varicose veins of le ft lower extremity with other complications (I83.892) Referral Organization [facility] Referring Provider First Name Chrissy Referring [...] Problem Status W/U Status Risk Notes Problem 184253936 Lymphedema, not elsewhere classified (I89.0) Active confirmed Problem Pain in left ankle and joints of left foot (M25.572) Active confirmed Problem 092023441411848 Sciatica, left side (M54.32) Active confirmed Problem 354148109 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) Active confirmed Vital Signs Heart Rate 87 /min 06/29/2024 Temperature 98.2 degrees Fahrenheit 06/29/2024 Oximetry 98 % 06/29/2024 Height 83.5 in 06/29/2024 Weight 350 lbs 06/29/2024 BMI 35.29 kg/m2 06/29/2024 Encounters Encounter Location Date Provider Diagnosis [facility] [address] [place] [address] [place] [address] 05/18/2024 Chrissy Keyes Varicose veins of left lower extremity with other complications I83.892 ; Lymphedema, not elsewhere classified I89.0 ; Sciatica, left side M54.32 and Pain in left ankle and joints of left foot M25.572 [facility] [address] [place] [address] [place] [address] 06/29/2024 Chrissy Paredesander Varicose veins of left [...] End Date [place] [address] [place] [address] [phone] [id number] Link Rosen Self - patient is the insured [employer] SU[employer] [address] [address] [place] [address] [id number] Link Rosen Self - patient is the insured Medical (General) History Medical History History ICD Code arthritis charcot ankle left left trimalleolar fracture peripheral neuropathy varicose veins atrial fibrillation Surgical History Surgery Date(Month/Year) ORIF left trimalleolar
--- OUTSIDE RECORDS SUMMARY | 2025-04-25 14:32 | XMS_ITS | Encounter Summary ---
Author Organization [facility] Address [address] [place] [address] Care Team Providers Care Truck Railroad And Bus Motor Mechanic Name Role Phone Sukhwinder Gill Primary Care Provider U Brendan Scott NP Primary Care Provider [phone] Arden Sams PA-C Primary Care Provider Mehnaz Lowry APRN.SIGNAL WIRER Unavailable [phone] Source Comments In the event this information is protected by the Federal Confidentiality of Alcohol and Drug AbusePatient Records regulations: The Federal rules restrict any use of the information to criminally investigate or prosecute any alcohol or drug abuse patient.[facility] Encounter Details Date Type Department Care Team (Late st Contact Info) Description 02/03/2009 [facility] [address] [phone] Carolina Nevarez MD [address] [place] [address] Social History Tobacco Use Types [...] Care Team (Late st Contact Info) Description 06/03/2025 9:30 AM EDT Office Visit [facility] [address] [place] [address] [place] [address] lab 08/26/2025 1:00 PM EST Office Visit Cardiology [address] [facility] [place] [address] Emanuel Whitten MD [address] [facility] [address] [address] [place] [phone] Return in about 7 months (around 08/26/2025). documented as of this encounter Visit Diagnoses Not on filedocumented in this encounter Care Teams Truck Railroad And Bus Motor Mechanic Relationship Specialty Start Date End Date Sukhwinder Gill PCP - General 05/14/07 07/06/17 Brendan Rivas NP [address] [facility] [address] PCP - General Family Medicine 07/07/17 07/05/18 Arden Sams PA-C [address] [facility] [address] PCP - General Internal Medicine 07/06/18 Mehnaz Lowry APRN.SIGNAL WIRER [address] [place] [address] Primary Staff Physician Nephrology 10/04/21 documented as of this encounter
--- OUTSIDE RECORDS SUMMARY | 2025-04-25 14:32 | XMS_ITS | Patient Health Record ---
Author Organization [facility] vices Address [address] [place], [place] [address] Care Team Providers Care Escort Patients Name Role Phone Jena Hunter Primary Care Provider [phone] Shanti Gee Unavailable [phone] Rachel Menjivar Unavailable [phone] Renae Bowen Unavailable Allergies No Known Allergies Results Component Value Reference Range Notes PSA SCREENING Reviewed date:03/07/2025 04:09:51 PM Interpretation: Performing Lab: Notes/Report: Reason For Referral No Information Medications Medication SIG (Take, Route, Frequency, Duration) Notes Start Date End Date Status Xarelto 20 MG 1 tablet with food Orally Once a day Active Metoprolol Succinate 50 MG 1 capsule Orally twice daily Active Cyclobenzaprine HCl 10 MG 1 tablet at bedtime as needed Orally Once a day; Duration: 30 days Active Amoxicillin-Pot Clavulanate 875-125 MG 1 tablet Orally every 12 hrs Active prednisoLONE 5 MG 1 tablet in the morning with food or milk Orally Once a day Active Mycophenolate Mofetil 250 MG 2 capsules Orally Twice a day Active D3 Maximum Strength 125 MCG (5000 UT) as directed Orally Active Lumzwnf-Rlxsrclyu-Tunn 500-250-12.5 MG 2 tablets Orally Once a day Active Gabapentin 300 MG 1 capsule Orally Once a day; Duration: 90 days OARRS reviewed without issue Active hydrOXYzine HCl 25 MG 1 tablet if needed Orally Once a day; Duration: 90 days every other day Active Tacrolimus 1 MG 1 capsule Orally twice daily Active Immunizations Vaccine Route Administration Date Status [...] free, 6-35 months Unknown 06/20/2017 Administered Novel [id number], preservative free Unknown 07/13/2009 Administered Social History [...] Negative PRAPARE Question Answer Notes Date Completed/Updated: 02/28/2025 radha nt entered data What is your [...] work (ex. student, retired, disabled, unpaid primary care partner) patient entered data Has lack of transportation k ept you from medical appointments, meetings, work or from getting things needed for daily living? No How often do you see or talk to people that you care about and feel close to? (For example: talking to friends on the phone, visiting friends or family, going to mandaen or club meetings) 3 to 5 times a week patient entered data How stressed are you? Stress is when someone feels tense, nervous, anxious, or can't sleep at night because their mind is troubled Not at all patient entered data In the past year have you sp ent more than 2 nights in a row in a shelter, residential, shelter center, or juvenile correctional facility? No patient entered data Are you a refugee? No patient en tered data What country are you from? [place] z[place] antoinent entered data Do you feel physically and emotionally safe where you currently live? Yes patient entered data In the past year, have you b een afraid of your partner or ex-partner? No patient entered data PRAPARE Score: 3 Problems Problem Type SNOMED Code ICD Code Onset Dates Problem Status W/U Status Risk Notes Problem Body mass index 35.00 to 39.99 (50123394700542 5) Body mass index [BMI] 36.0-36.9, adult (Z68.36) Active confirmed Problem Atrial fibrillation (11763242) Atrial fibrillation, unspecified type (I48.91) Active confirmed Problem Polycystic kidney disease (75670760) Polycystic kidney disease (Q61.3) Active confirmed Problem History of renal transplant (610184947) Status post kidney transplant (Z94.0) Active confirmed Problem Anxiety (52622786) Anxiety (F41.9) Active confirmed Comment:-pt has hx [...] or sooner if needed, Problem Muscle spasm (58606149) Muscle spasm (M62.838) Active confirmed Comment:-pt has muscle spasm in low back right now at night -only since weather has changed -has taken flexeril in the past for this with success -will send at this time -f/u as needed if spasms do not resolve -increase water intake, Problem Neuropathy (060863535) Neuropathy (G62.9) Active confirmed Comment:-Bilat eral peripheral numbness/tingl ing -c/w gabapentin 300mg once nightly; was previously on 600mg. and 900mg before that - has been able to continue to ween down -tingling is getting better - has been to the chiropractor which has helped his neuropathy -Reviewed OARRS; no aberrant behaviors -f/u in 6 months or sooner if needed, Vital Signs Heart Rate 70 /min 02/28/2025 Huan Matt le 02/28/2025 11:02:10 AM EDT > Temperature 97.5 degrees Fahrenheit 02/28/2025 Disha King 02/28/2025 11:02:10 AM EDT > Respiratory Rate 18 /min 02/28/2025 Troy Pressley 02/28/2025 11:02:10 AM EDT > Height-cm 213.36 cm 02/28/2025 Matt Pressley 02/28/2025 11:02:10 AM EDT > Oximetry 96 % 02/28/2025 Matt Pressley 02/28/2025 11:02:10 AM EDT > Blood pressure diastolic 84 mm Hg 02/28/2025 Disha Jordan 02/28/2025 11:02:10 AM EDT > Weight-kg 165.84 kg 02/28/2025 Huan Matt le 02/28/2025 11:02:10 AM EDT > Height 84.00 in 02/28/2025 Matt Pressley 02/28/2025 11:02:10 AM EDT > Blood pressure systolic 128 mm Hg 02/28/2025 Disha King 02/28/2025 11:02:10 AM EDT > Weight 365.6 lbs 02/28/2025 Matt Pressley 02/28/2025 11:02:10 AM EDT > BMI 36.43 kg/m2 02/28/2025 Matt Pressley 02/28/2025 11:02:10 AM EDT > Encounters Encounter Location Date Provider Diagnosis Main [address] [id number] 05/21/2024 Jena Myerholtz Muscle spasm M62.8 38 ; Obesity, unspecified E66.9 and Body mass index [BMI] 38.0-38.9, adult Z68.38 Main [address] [id number] 09/06/2024 Jena Myerholtz Atrial fibrillatio n, unspecified type I48.91 ; Polycystic kidney disease Q61.3 ; Neuropathy G62.9 ; Anxiety F41.9 ; Muscle spasm M62.838 ; Obesity, class 2 E66.812 ; Morbid (severe) obesity due to excess calories E66.01 and Body mass index [BMI] 37.0-37.9, adult Z68.37 Main [address] [id number] 02/28/2025 Jena Myerholtz Atrial fibrillatio n, unspecified type I48.91 ; Polycystic kidney disease Q61.3 ; Neuropathy G62.9 ; Anxiety F41.9 ; Muscle spasm M62.838 ; Screening for prostate cancer Z12.5 ; Body mass index [BMI] 36.0-36.9, adult Z68.36 and Obesity, class 2 E66.812 Main [address] [place], [place] [id number] 05/17/2024 Shanti Coopers Main [address] [place], [place] [id number] 09/06/2024 Rachel Paigeood Main [address] [place], [place] [id number] 09/06/2024 Jena Myerholtz Main [address] [place], [place] [id number] 12/13/2024 Jena Myerholtz Neuropathy G62.9 Main [address] [place], [place] [id number] 03/04/2025 Jena Myerholtz Screening for pros jones cancer Z12.5 Main [address] [place], [place] [id number] 03/08/2025 Jena Myerholtz Assessments Encounter Date Diagnosis (ICD Code) Assessment Notes Treatment Notes Treatment Clinical Notes Section Notes 05/21/2024 Obesity, unspecified (ICD-10 - E66.9) Body [...] with Nephrology 12/13/2024 Neuropathy (ICD-10 - G62.9) 02/28/2025 Atrial fibrillation, unspecified type (ICD-10 - I48.91) Pt to continue to f/u with Cardiology 02/28/2025 Polycystic kidney disease (ICD-10 - Q61.3) Pt to continue to f/u with Nephrology 03/04/2025 Screening for prostate cancer (ICD-10 - Z12.5) 09/06/2024 Neuropathy (ICD-10 - G62.9) Pt is stable on current medications. Will continue current medications. F/u 6 months & PRN 02/28/2025 Neuropathy (ICD-10 - G62.9) Pt is stable on current medications. Will continue current medications. F/u 6 months & PRN 05/21/2024 Body mass index [BMI] 38.0-38.9, adult (ICD-10 - Z68.38) 02/28/2025 Anxiety (ICD-10 - F41.9) Anxiety stable. Will continue current medications. Advised pt if they are have suicidal or homicidal to call 911 or go to the ER. F/u 6 months & PRN 09/06/2024 Anxiety (ICD-10 - F41.9) Anxiety stable. Will continue current medications. Advised pt if they are have suicidal or homicidal to call 911 or go to the ER. F/u 6 months & PRN 09/06/2024 Muscle spasm (ICD-10 - M62.838) Pt is stable on current medications. Will continue current medications. F/u 6 months & PRN 02/28/2025 Muscle spasm (ICD-10 - M62.838) Pt is stable on current medications. Will continue current medications. F/u 6 months & PRN 09/06/2024 Obesity, class 2 (ICD-10 - E66.812) 02/28/2025 Screening for prostate cancer (ICD-10 - Z12.5) 02/28/2025 Body mass index [BMI] 36.0-36.9, adult (ICD-10 - Z68.36) 09/06/2024 Morbid (severe) obesity due to excess calories (ICD-10 - E66.01) 09/06/2024 Body mass index [BMI] 37.0-37.9, adult (ICD-10 - Z68.37) Body Mass Index: Care Instructions material was published 02/28/2025 Obesity, class 2 (ICD-10 - E66.812) Plan Of Treatment Next Appt Details Provider Name:Jenanayan coronel, 08/29/2025 11:00:00 AM, [address] [place], [place], [id number], Insurance Providers Payer Name Payer Address Payer Phone Subscriber Number Group Number Insured Name Patient Relationship to Insured Coverage Start Date Coverage End Date Medicare NGS PPS [address] [place], [place] [id number] Nomi Rosen Self - patient is the insured 2 [place] [employer] Medicare Supplement [address] [place] [id number] PLAN G Nomi Rosen Self - patient is the insured 2 Medical (General) History Medical History History ICD Code Neuropathy Peripheral edema Polycystic kidney, COMMENTS: -Had kidney transplant in 2008 Atrial fibrillation I48.91 Anxiety F41.9 Surgical History Surgery Date(Month/Year) Inguinal Hernia Repair Left ankle arthroscopy, COMMENTS: fusion 10/22/2019 DOUBLE KIDNEY TRANSPLANT 2009-04-08 biopsy
--- OUTSIDE RECORDS SUMMARY | 2025-04-25 14:33 | XMS_ITS | Encounter Summary ---
Author Organization [facility] Address [address] [place] [address] Care Team Providers Care Second Hand Paper Machine Name Role Phone Sukhwinder Gill Primary Care Provider U Brendan Scott NP Primary Care Provider [phone] Arden Sams PA-C Primary Care Provider Mehnaz Lowry APRN.CARGO AND RAMP SERVICES MANAGER Unavailable [phone] Source Comments In the event this information is protected by the Federal Confidentiality of Alcohol and Drug AbusePatient Records regulations: The Federal rules restrict any use of the information to criminally investigate or prosecute any alcohol or drug abuse patient.[facility] Encounter Details Date Type Department Care Team (Late st Contact Info) Description 01/14/2017 Patient Msg Medical Records [address] [place] [address] Kristen Carnes Questionnaire Submission Social History Tobacco [...] 12:34 PM EDT Tobi, V kalpana L (Transfer Station Operator), TRACKMOBILE OPERATOR * Are you blind or do you have serious difficulty seeing, even when wearing glasses? Answer Date of Assessment Author No 12/28/2014 12:34 PM EDT Tobi, V kalpana L (Transfer Station Operator), TRACKMOBILE OPERATOR * Do you have serious difficulty walking or climbing stairs? Answer Date of Assessment Author No 12/28/2014 12:34 PM EDT Tobi, V kalpana L (Transfer Station Operator), TRACKMOBILE OPERATOR * Do you have difficulty dressing or bathing? Answer Date of Assessment Author No 12/28/2014 12:34 PM EDT Tobi, V kalpana L (Transfer Station Operator), TRACKMOBILE OPERATOR * Because of a physical, mental, or emotional condition, do you have difficulty doing errands alone such as visiting a doctor's office or shopping? Answer Date of Assessment Author No 12/28/2014 12:34 PM EDT Tobi, V kalpana L (Transfer Station Operator), TRACKMOBILE OPERATOR documented as of this encounter Mental Status * Because of a physical, mental, or emotional condition, do you have serious difficulty concentrating, remembering, or making decisions? Answer Entry Date Author No 12/28/2014 12:34 PM EDT Tobi, V kalpana L (Transfer Station Operator), TRACKMOBILE OPERATOR documented in this encounter Plan of Treatment Upcoming Encounters Date Type Department Care Team (Late st Contact Info) Description 06/03/2025 9:30 AM EDT Office Visit [facility] [address] [place] [address] lab 08/26/2025 1:00 PM EST Office Visit Cardiology [address] [facility] [address] [place], [place] [phone] Emanuel Whitten MD [address] [facility] [place] [address] Return in about 7 months (around 08/26/2025). documented as of this encounter Visit Diagnoses Not on filedocumented in this encounter Care Teams Second Hand Paper Machine Relationship Specialty Start Date End Date Sukhwinder Gill PCP - General 05/14/07 07/06/17 Brendan Rivas NP [address] [place] [address] PCP - General Family Medicine 07/07/17 07/05/18 Arden Sams PA-C [address] [place] [address] PCP - General Internal Medicine 07/06/18 Mehnaz Lowry APRN.CARGO AND RAMP SERVICES MANAGER [address] [place] [address] Primary Staff Physician Nephrology 10/04/21 documented as of this encounter
--- OUTSIDE RECORDS SUMMARY | 2025-04-25 14:33 | XMS_ITS | Encounter Summary ---
Author Organization [facility] Address [facility] [place] [address] Care Team Providers Care Drip Box Tender Name Role Phone Brendan Rivas NP Primary Care Provider [phone] Arden Sams PA-C Primary Care Provider Mehnaz Lowry PAY PER CLICK STRATEGIST.REGISTERED NURSE CARDIOVASCULAR ICU Unavailable [phone] Source Comments In the event this information is protected by the Federal Confidentiality of Alcohol and Drug AbusePatient Records regulations: The Federal rules restrict any use of the information to criminally investigate or prosecute any alcohol or drug abuse patient.[facility] Encounter Details Date Type Department Care Team (Late st Contact Info) Description 03/01/2018 Patient Msg Kidney Medicine [facility] [address] [phone] Mehnaz Lowry, PAY PER CLICK STRATEGIST.REGISTERED NURSE CARDIOVASCULAR ICU [address] [place] [address] RE: Request an Appointment Social [...] 12:34 PM EDT Tobi, V kalpana L (Toll Transmission Worker), CIRCUITRY NEGATIVE INSPECTOR * Are you blind or do you have serious difficulty seeing, even when wearing glasses? Answer Date of Assessment Author No 12/28/2014 12:34 PM EDT Tobi, V kalpana L (Toll Transmission Worker), CIRCUITRY NEGATIVE INSPECTOR * Do you have serious difficulty walking or climbing stairs? Answer Date of Assessment Author No 12/28/2014 12:34 PM EDT Tobi, V kalpana L (Toll Transmission Worker), CIRCUITRY NEGATIVE INSPECTOR * Do you have difficulty dressing or bathing? Answer Date of Assessment Author No 12/28/2014 12:34 PM EDT Tobi, V kalpana L (Toll Transmission Worker), CIRCUITRY NEGATIVE INSPECTOR * Because of a physical, mental, or emotional condition, do you have difficulty doing errands alone such as visiting a doctor's office or shopping? Answer Date of Assessment Author No 12/28/2014 12:34 PM EDT Tobi, V kalpana L (Toll Transmission Worker), CIRCUITRY NEGATIVE INSPECTOR documented as of this encounter Mental Status * Because of a physical, mental, or emotional condition, do you have serious difficulty concentrating, remembering, or making decisions? Answer Entry Date Author No 12/28/2014 12:34 PM EDT Tobi, V kalpana L (Toll Transmission Worker), CIRCUITRY NEGATIVE INSPECTOR documented in this encounter Plan of Treatment Upcoming Encounters Date Type Department Care Team (Late st Contact Info) Description 06/03/2025 9:30 AM EDT Office Visit [facility] [address] [place] [address] [place] [address] lab 08/26/2025 1:00 PM EST Office Visit Cardiology [address] [facility] [place] [address] Emanuel Whitten MD [address] [facility] [address] [place], [place] [phone] Return in about 7 months (around 08/26/2025). documented as of this encounter Visit Diagnoses Not on filedocumented in this encounter Care Teams Drip Box Tender Relationship Specialty Start Date End Date Brendan Rvias NP [address] [place] [address] PCP - General Family Medicine 07/07/17 07/05/18 Arden Sams PA-C [address] [place] [address] PCP - General Internal Medicine 07/06/18 Mehnaz Lowry APRN.REGISTERED NURSE CARDIOVASCULAR ICU [address] [place] [address] Primary Staff Physician Nephrology 10/04/21 documented as of this encounter
--- OUTSIDE RECORDS SUMMARY | 2025-04-25 14:33 | XMS_ITS | Encounter Summary ---
Author Organization [facility] Address [address] [place] [address] Care Team Providers Care Fill Manager Name Role Phone Arden Sams PA-C Primary Care Provider Mehnaz Lowry APRN.WATERWORKS OPERATOR Unavailable [phone] Source Comments In the event this information is protected by the Federal Confidentiality of Alcohol and Drug AbusePatient Records regulations: The Federal rules restrict any use of the information to criminally investigate or prosecute any alcohol or drug abuse patient.[facility] Reason for Visit * Reason Comments Refill Request Encounter Details Date Type Department Care Team (Late st Contact Info) Description 10/22/2024 Refill Kidney Medicine [facility] [address] [phone] Mehnaz Lowry APRN.WATERWORKS OPERATOR [address] [place] [address] Refill Request Social History Tobacco [...] on file 09/20/2022 Data from: https://www.neighborhoodatlas.medicine.[facility]/. Last address used for calculation [...] Description 06/03/2025 9:30 AM EDT Office Visit [facility] [address] [place] [address] [place] [address] lab 08/26/2025 1:00 PM EST Office Visit Cardiology [address] [facility] [address] Emanuel Whitten MD [address] [facility] [place] [phone] Return in about 7 months (around 08/26/2025). documented as of this encounter Goals Goal Patient Goal Type Associated Problems Recent Progress Patient-Stated? Author Blood Pressure < 130/80 Blood Pressure 116/76( 025 2:56 PM EDT) No Amanda Ramirez MA documented as of this encounter Visit Diagnoses Diagnosis 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) Kidney replaced by transplant documented in this encounter Care Teams Fill Manager Relationship Specialty Start Date End Date Arden Sams PA-C PCP - General Internal Medicine 07/06/18 Mehnaz Lowry APRN.WATERWORKS OPERATOR [address] [place] [address] Primary Staff Physician Nephrology 10/04/21 documented as of this encounter
--- OUTSIDE RECORDS SUMMARY | 2025-04-25 14:33 | XMS_ITS | Encounter Summary ---
Author Organization [facility] Address [address] [place] [address] Care Team Providers Care Teacher Early Childhood Development Name Role Phone Arden Sams PA-C Primary Care Provider Mehnaz Lowry APRN.BELL RINGER Unavailable [phone] Source Comments In the event this information is protected by the Federal Confidentiality of Alcohol and Drug AbusePatient Records regulations: The Federal rules restrict any use of the information to criminally investigate or prosecute any alcohol or drug abuse patient.[facility] Encounter Details Date Type Department Care Team (Late st Contact Info) Description 12/22/2022 Patient Msg Kidney Medicine [facility] [address] [phone] Mehnaz Lowry, LUNCH TRUCK DRIVER.BELL RINGER [address] [place] [address] Appointment Request Social History Tobacco Use Types Packs/Day Years Used Date Smoking Tobacco: Never Smokeless Tobacco: Never Alcohol Use Standard Drinks/Week Comments No 0 (1 standard drink = 0.6 oz pure alcohol) no alcohol > 2 yrs, no previous hx of abuse Area Deprivation Index Answer Date Borsi rded National Score (1-100), lower number is lower ri 62 09/20/2022 State Score (1-10), lower number is lower risk N ot on file 09/20/2022 Data from: https://www.neighborhoodatlas.medicine.[facility]/. Last address used for calculation Tori [place] [...] 12:34 PM EDT Tobi, V kalpana L (Fan Mail Editor), INDUCTION HEAT TREATER * Are you blind or do you have serious difficulty seeing, even when wearing glasses? Answer Date of Assessment Author No 12/28/2014 12:34 PM EDT Tobi, V kalpana L (Fan Mail Editor), INDUCTION HEAT TREATER * Do you have serious difficulty walking or climbing stairs? Answer Date of Assessment Author No 12/28/2014 12:34 PM EDT Tobi, V kalpana L (Fan Mail Editor), INDUCTION HEAT TREATER * Do you have difficulty dressing or bathing? Answer Date of Assessment Author No 12/28/2014 12:34 PM EDT Tobi, V kalpana L (Fan Mail Editor), INDUCTION HEAT TREATER * Because of a physical, mental, or emotional condition, do you have difficulty doing errands alone such as visiting a doctor's office or shopping? Answer Date of Assessment Author No 12/28/2014 12:34 PM EDT Tobi, V kalpana L (Fan Mail Editor), INDUCTION HEAT TREATER documented as of this encounter Mental Status * Because of a physical, mental, or emotional condition, do you have serious difficulty concentrating, remembering, or making decisions? Answer Entry Date Author No 12/28/2014 12:34 PM EDT Tobi, V kalpana L (Fan Mail Editor), INDUCTION HEAT TREATER documented in this encounter Plan of Treatment Upcoming Encounters Date Type Department Care Team (Late st Contact Info) Description 06/03/2025 9:30 AM EDT Office Visit [facility] Laboratory [address] [place] [address] [place] [address] lab 08/26/2025 1:00 PM EST Office Visit Cardiology [address] [facility] [place] [address] Emanuel Whitten MD [address] [facility] [place] [phone] Return in about 7 months (around 08/26/2025). documented as of this encounter Visit Diagnoses Not on filedocumented in this encounter Care Teams Teacher Early Childhood Development Relationship Specialty Start Date End Date Arden Sams PA-C PCP - General Internal Medicine 07/06/18 Mehnaz Lowry APRN.BELL RINGER [address] [place] [address] Primary Staff Physician Nephrology 10/04/21 documented as of this encounter
--- OUTSIDE RECORDS SUMMARY | 2025-04-25 14:33 | XMS_ITS | Encounter Summary ---
Author Organization [facility] Address [address] [place] [address] Care Team Providers Care Optical Scientist Name Role Phone Sukhwinder Gill Primary Care Provider U Brendan Scott NP Primary Care Provider [phone] Arden Sams PA-C Primary Care Provider Mehnaz Lowry APRN.SWAGE TOOLSETTER Unavailable [phone] Source Comments In the event this information is protected by the Federal Confidentiality of Alcohol and Drug AbusePatient Records regulations: The Federal rules restrict any use of the information to criminally investigate or prosecute any alcohol or drug abuse patient.[facility] Encounter Details Date Type Department Care Team (Late st Contact Info) Description 05/05/2014 Patient Msg Medical Records [address] [place] [address] Provider, [facility] RE: Appointment Cancellation Request Social [...] Description 06/03/2025 9:30 AM EDT Office Visit [facility] Laboratory [address] [place] [address] [place] [address] lab 08/26/2025 1:00 PM EST Office Visit Cardiology [address] [facility] [place] [place] [address] Emanuel Whitten MD [address] [facility] [place] [address] Return in about 7 months (around 08/26/2025). documented as of this encounter Visit Diagnoses Not on filedocumented in this encounter Care Teams Optical Scientist Relationship Specialty Start Date End Date Sukhwinder Gill PCP - General 05/14/07 07/06/17 Brendan Rivas NP [address] [place] [address] PCP - General Family Medicine 07/07/17 07/05/18 Arden Sams PA-C [address] [place] [address] PCP - General Internal Medicine 07/06/18 Mehnaz Lowry APRN.SWAGE TOOLSETTER [address] [place] [address] Primary Staff Physician Nephrology 10/04/21 documented as of this encounter
--- OUTSIDE RECORDS SUMMARY | 2025-04-25 14:33 | XMS_ITS | Encounter Summary ---
Author Organization [facility] Address [facility] [place] [address] Care Team Providers Care Naprapath Name Role Phone Arden Sams PA-C Primary Care Provider Mehnaz Lowry APRN.ELIGIBILITY COUNSELOR Unavailable [phone] Source Comments In the event this information is protected by the Federal Confidentiality of Alcohol and Drug AbusePatient Records regulations: The Federal rules restrict any use of the information to criminally investigate or prosecute any alcohol or drug abuse patient.[facility] Encounter Details Date Type Department Care Team (Late st Contact Info) Description 11/07/2021 Lab Requisition [facility] [address] [place] [address] Mehnaz Lowry, NSH TEACHER.ELIGIBILITY COUNSELOR [address] [place] [address] Kidney transplant status Social History [...] N ot on file 08/14/2020 Data from: https://www.neighborhoodatlas.medicine.[facility]/. Last address used for calculation Not [...] 12:34 PM EDT Tobi, V kalpana L (Adjunct Latin Professor), MOLECULAR BIOLOGY PROFESSOR * Are you blind or do you have serious difficulty seeing, even when wearing glasses? Answer Date of Assessment Author No 12/28/2014 12:34 PM EDT Tobi, V kalpana L (Adjunct Latin Professor), MOLECULAR BIOLOGY PROFESSOR * Do you have serious difficulty walking or climbing stairs? Answer Date of Assessment Author No 12/28/2014 12:34 PM EDT Tobi, V kalpana L (Adjunct Latin Professor), MOLECULAR BIOLOGY PROFESSOR * Do you have difficulty dressing or bathing? Answer Date of Assessment Author No 12/28/2014 12:34 PM EDT Tobi, V kalpana L (Adjunct Latin Professor), MOLECULAR BIOLOGY PROFESSOR * Because of a physical, mental, or emotional condition, do you have difficulty doing errands alone such as visiting a doctor's office or shopping? Answer Date of Assessment Author No 12/28/2014 12:34 PM EDT Tobi, V kalpana L (Adjunct Latin Professor), MOLECULAR BIOLOGY PROFESSOR documented as of this encounter Mental Status * Because of a physical, mental, or emotional condition, do you have serious difficulty concentrating, remembering, or making decisions? Answer Entry Date Author No 12/28/2014 12:34 PM EDT Tobi, V kalpana L (Adjunct Latin Professor), MOLECULAR BIOLOGY PROFESSOR documented in this encounter Plan of Treatment Upcoming Encounters Date Type Department Care Team (Late st Contact Info) Description 06/03/2025 9:30 AM EDT Office Visit [facility] [address] [place] [address] [place] [address] lab 08/26/2025 1:00 PM EST Office Visit [facility] [address] [facility] [place] [address] Emanuel Whitten MD [address] [facility] [place], [place] [id number] Return in about 7 months (around 08/26/2025). [...] AUTORESULT LRR Complete 11/07/2021 2:01 AM EST [facility] Blood BLOOD SPECIMEN / Unknown 11/05/2021 8:20 AM EST 11/07/2021 12:26 AM EST us Mehnaz Lowry NSH TEACHER.ELIGIBILITY COUNSELOR LABORATORY Final R esult [facility] [address] [address], * BK VIRUS PCR,QUANT,P (11/05/2021 8:20 AM EST) BKV DNA BK Virus DNA Not Detected by PCR. BK Virus DNA Not Detected by PCR. 11/08/2021 2:26 PM EST [facility] Blood BLOOD SPECIMEN / Unknown 11/05/2021 8:20 AM EST 11/07/2021 12:26 AM EST Narrative [facility] - 11/08/2021 2:26 PM EST Linear Range is 21.5 IU/mL to 100,000,000 IU/mL. us Mehnaz Lowry NSH TEACHER.SEAN LABORATORY Final R esult Performing Organization Address [facility] Co de Phone Number [facility] [address] [place] [address], * TACROLIMUS/FK-506 BL (11/05/2021 8:20 AM EST) Tacrolimus/FK506 7.2 5.0 - 20.0 ng/mL 11/07/2021 10:24 AM EST [facility] Comment: These reference ranges are provided [...] situation. Test performed by chemiluminescent immunoassay using Tictail. Blood BLOOD SPECIMEN / Unknown 11/05/2021 8:20 AM EST 11/07/2021 12:26 AM EST Mehnaz Lowry NSH TEACHER.SEAN LABORATORY Final R esult Performing Organization Address [facility] Co de Phone Number [facility] [address] [place] [address] documented in this encounter Visit Diagnoses Diagnosis Kidney transplant status (HCC) documented in this encounter Care Teams Naprapath Relationship Specialty Start Date End Date Arden Sams PA-C PCP - General Internal Medicine 07/06/18 Mehnaz Lowry APRN.CNP [address] [place] [address] Primary Staff Physician Nephrology 10/04/21 documented as of this encounter
--- OUTSIDE RECORDS SUMMARY | 2025-04-25 14:33 | XMS_ITS | Encounter Summary ---
Author Organization [facility] Address [address] [place] [address] Care Team Providers Care Picker Packer Name Role Phone Arden Sams PA-C Primary Care Provider Mehnaz Lowry APRN.INFORMATION SYSTEMS OPERATOR Unavailable [phone] Source Comments In the event this information is protected by the Federal Confidentiality of Alcohol and Drug AbusePatient Records regulations: The Federal rules restrict any use of the information to criminally investigate or prosecute any alcohol or drug abuse patient.[facility] Encounter Details Date Type Department Care Team (Late st Contact Info) Description 05/29/2022 Get Medical Advice Kidney Medicine [facility] [address] [phone] Mehnaz Lowry, SCRAP KETTLE TENDER.INFORMATION SYSTEMS OPERATOR [address] [place] [address] bloodwork Social History Tobacco Use [...] on file 01/25/2022 Data from: https://www.neighborhoodatlas.medicine.[facility]/. Last address used for calculation [address] [...] 12:34 PM EDT Tobi, V kalpana L (Equipment Or Machinery Cleaner), WRAPPER OPENER * Are you blind or do you have serious difficulty seeing, even when wearing glasses? Answer Date of Assessment Author No 12/28/2014 12:34 PM EDT Tobi, V kalpana L (Equipment Or Machinery Cleaner), WRAPPER OPENER * Do you have serious difficulty walking or climbing stairs? Answer Date of Assessment Author No 12/28/2014 12:34 PM EDT Tobi, V kalpana L (Equipment Or Machinery Cleaner), WRAPPER OPENER * Do you have difficulty dressing or bathing? Answer Date of Assessment Author No 12/28/2014 12:34 PM EDT Tobi, V kalpana L (Equipment Or Machinery Cleaner), WRAPPER OPENER * Because of a physical, mental, or emotional condition, do you have difficulty doing errands alone such as visiting a doctor's office or shopping? Answer Date of Assessment Author No 12/28/2014 12:34 PM EDT Tobi, V kalpana L (Equipment Or Machinery Cleaner), WRAPPER OPENER documented as of this encounter Mental Status * Because of a physical, mental, or emotional condition, do you have serious difficulty concentrating, remembering, or making decisions? Answer Entry Date Author No 12/28/2014 12:34 PM EDT Tobi, V kalpana L (Equipment Or Machinery Cleaner), WRAPPER OPENER documented in this encounter Plan of Treatment Upcoming Encounters Date Type Department Care Team (Late st Contact Info) Description 06/03/2025 9:30 AM EDT Office Visit [facility] [address] [place] [address] [place] [address] lab 08/26/2025 1:00 PM EST Office Visit Cardiology [address] [place] [address] Emanuel Whitten MD [address] [facility] [place] [id number] Return in about 7 months (around 08/26/2025). documented as of this encounter Visit Diagnoses Not on filedocumented in this encounter Care Teams Picker Packer Relationship Specialty Start Date End Date Arden Sams PA-C PCP - General Internal Medicine 07/06/18 Mehnaz Lowry APRN.INFORMATION SYSTEMS OPERATOR [address] [place] [address] Primary Staff Physician Nephrology 10/04/21 documented as of this encounter
--- OUTSIDE RECORDS SUMMARY | 2025-04-25 14:33 | XMS_ITS | Encounter Summary ---
Author Organization [facility] Address [address] [place] [address] Care Team Providers Care Draw Furnace Tender Name Role Phone Arden Sams PA-C Primary Care Provider Mehnaz Lowry APRN.MICA INSPECTOR Unavailable Source Comments In the event this information is protected by the Federal Confidentiality of Alcohol and Drug AbusePatient Records regulations: The Federal rules restrict any use of the information to criminally investigate or prosecute any alcohol or drug abuse patient.[facility] Encounter Details Date Type Department Care Team (Late st Contact Info) Description 02/24/2020 Patient Msg Kidney Medicine [facility] [address] [phone] Mehnaz Lowry, SELLING SPECIALIST.MICA INSPECTOR [address] [place] [address] RE: Request an Appointment Social [...] 12:34 PM EDT Tobi, V kalpana L (Development Geologist), COMMODITY MANAGER * Are you blind or do you have serious difficulty seeing, even when wearing glasses? Answer Date of Assessment Author No 12/28/2014 12:34 PM EDT Tobi, V kalpana L (Development Geologist), COMMODITY MANAGER * Do you have serious difficulty walking or climbing stairs? Answer Date of Assessment Author No 12/28/2014 12:34 PM EDT Tobi, V kalpana L (Development Geologist), COMMODITY MANAGER * Do you have difficulty dressing or bathing? Answer Date of Assessment Author No 12/28/2014 12:34 PM EDT Tobi, V kalpana L (Development Geologist), COMMODITY MANAGER * Because of a physical, mental, or emotional condition, do you have difficulty doing errands alone such as visiting a doctor's office or shopping? Answer Date of Assessment Author No 12/28/2014 12:34 PM EDT Tobi, V kalpana L (Development Geologist), COMMODITY MANAGER documented as of this encounter Mental Status * Because of a physical, mental, or emotional condition, do you have serious difficulty concentrating, remembering, or making decisions? Answer Entry Date Author No 12/28/2014 12:34 PM EDT Tobi, V kalpana L (Development Geologist), COMMODITY MANAGER documented in this encounter Plan of Treatment Upcoming Encounters Date Type Department Care Team (Late st Contact Info) Description 06/03/2025 9:30 AM EDT Office Visit [facility] Laboratory [address] [place] [address] [place] [address] lab 08/26/2025 1:00 PM EST Office Visit Cardiology [address] [facility] [place], [place] [id number] Emanuel Whitten MD [address] [facility] [place] [address] Return in about 7 months (around 08/26/2025). documented as of this encounter Visit Diagnoses Not on filedocumented in this encounter Care Teams Draw Furnace Tender Relationship Specialty Start Date End Date Arden Sams PA-C PCP - General Internal Medicine 07/06/18 Mehnaz Lowry APRN.MICA INSPECTOR [address] [facility] [address] Primary Staff Physician Nephrology 10/04/21 documented as of this encounter
--- OUTSIDE RECORDS SUMMARY | 2025-04-25 14:33 | XMS_ITS | Encounter Summary ---
Author Organization [facility] Address [address] [place] [address] Care Team Providers Care Two Way Radio Technician Name Role Phone Arden Sams PA-C Primary Care Provider Mehnaz Lowry APRN.GEODETIC SURVEYOR Unavailable [phone] Source Comments In the event this information is protected by the Federal Confidentiality of Alcohol and Drug AbusePatient Records regulations: The Federal rules restrict any use of the information to criminally investigate or prosecute any alcohol or drug abuse patient.[facility] Encounter Details Date Type Department Care Team (Late st Contact Info) Description 11/22/2024 Patient Msg Transplant Center [address] [phone] Mary Vasques RN KIDNEY NIGHT- JOIN US [...] N ot on file 09/20/2022 Data from: https://www.[facility]/. Last address used for calculation [address] [...] Description 06/03/2025 9:30 AM EDT Office Visit [facility] Laboratory [address] [place] [address] [place] [address] lab 08/26/2025 1:00 PM EST Office Visit Cardiology [address] [facility] [facility] [place] [address] Emanuel Whitten MD [address] [facility] [place] [place], [place] [phone] Return in about 7 months (around 08/26/2025). documented as of this encounter Goals Goal Patient Goal Type Associated Problems Recent Progress Patient-Stated? Author Blood Pressure < 130/80 Blood Pressure 116/76( 025 2:56 PM EDT) No Amanda Ramirez MA documented as of this encounter Visit Diagnoses Not on filedocumented in this encounter Care Teams Two Way Radio Technician Relationship Specialty Start Date End Date Arden Sams PA-C PCP - General Internal Medicine 07/06/18 Mehnaz Lowry APRN.[facility] [address] [facility] [place] [address] Primary Staff Physician Nephrology 10/04/21 documented as of this encounter
--- OUTSIDE RECORDS SUMMARY | 2025-04-25 14:33 | XMS_ITS | Clinical Summary ---
Author Organization [facility] Address [id number] [address] [place] [address] Care Team Providers Care Turner Splitter Machine Operator Name Role Phone Arden Sams PA-C Primary Care Provider [phone] Allergies No known active allergies Medications acetaminophen [...] Risk Screening 2022 Adult BMI Screening 04/20/2023 Influenza Vaccine 05/09/2025 07/05/2021, , 06/21/2020, Additional history exists Medical Devices Not on file Insurance WORKERS COMPENSATION Care Teams Turner Splitter Machine Operator Relationship Specialty Start Date End Date Arden Sams, FERNYC [address] [place] [address] PCP - General Physician Clinical Services Director 06/06/18
--- OUTSIDE RECORDS SUMMARY | 2025-04-25 14:33 | XMS_ITS | Encounter Summary ---
Author Organization [facility] Address [facility] [place] [address] Care Team Providers Care Peoplesoft Financials Name Role Phone Arden Sams PA-C Primary Care Provider Mehnaz Lowry APRN.WIRE COILER Unavailable [phone] Source Comments In the event this information is protected by the Federal Confidentiality of Alcohol and Drug AbusePatient Records regulations: The Federal rules restrict any use of the information to criminally investigate or prosecute any alcohol or drug abuse patient.[facility] Encounter Details Date Type Department Care Team (Late st Contact Info) Description 01/22/2022 Get Medical Advice Urology [address] [phone] Dorcas Haider, TIRE CENTER MANAGER.WIRE COILER [address] [facility], [address] [place] [address] meds Social History Tobacco Use [...] N ot on file 01/25/2022 Data from: https://www.neighborhoodatlas.medicine.[facility]/. Last address used for calculation [address] [...] 12:34 PM EDT Tobi, V kalpana L (Clerical Proofreader), SALES SUPPORT MANAGER * Are you blind or do you have serious difficulty seeing, even when wearing glasses? Answer Date of Assessment Author No 12/28/2014 12:34 PM EDT Tobi, V kalpana L (Clerical Proofreader), SALES SUPPORT MANAGER * Do you have serious difficulty walking or climbing stairs? Answer Date of Assessment Author No 12/28/2014 12:34 PM EDT Tobi, V kalpana L (Clerical Proofreader), SALES SUPPORT MANAGER * Do you have difficulty dressing or bathing? Answer Date of Assessment Author No 12/28/2014 12:34 PM EDT Tobi, V kalpana L (Clerical Proofreader), SALES SUPPORT MANAGER * Because of a physical, mental, or emotional condition, do you have difficulty doing errands alone such as visiting a doctor's office or shopping? Answer Date of Assessment Author No 12/28/2014 12:34 PM EDT Tobi, V kalpana L (Clerical Proofreader), SALES SUPPORT MANAGER documented as of this encounter Mental Status * Because of a physical, mental, or emotional condition, do you have serious difficulty concentrating, remembering, or making decisions? Answer Entry Date Author No 12/28/2014 12:34 PM EDT Tobi, V kalpana L (Clerical Proofreader), SALES SUPPORT MANAGER documented in this encounter Plan of Treatment Upcoming Encounters Date Type Department Care Team (Late st Contact Info) Description 06/03/2025 9:30 AM EDT Office Visit [facility] [address] [place] [address] lab 08/26/2025 1:00 PM EST Office Visit [facility] [address] [facility] [place] [phone] Emanuel Whitten MD [address] [place], [place] [phone] Return in about 7 months (around 08/26/2025). documented as of this encounter Visit Diagnoses Not on filedocumented in this encounter Care Teams Peoplesoft Financials Relationship Specialty Start Date End Date Arden Sams PA-C PCP - General Internal Medicine 07/06/18 Mehnaz Lowry APRN.WIRE COILER [address] [place] [address] Primary Staff Physician Nephrology 10/04/21 documented as of this encounter
--- OUTSIDE RECORDS SUMMARY | 2025-04-25 14:33 | XMS_ITS | Encounter Summary ---
Author Organization [facility] Address [address] [place] [address] Care Team Providers Care Network Administrator Name Role Phone Arden Sams PA-C Primary Care Provider Mehnaz Lowry APRN.PELTS SKINNER Unavailable [phone] Source Comments In the event this information is protected by the Federal Confidentiality of Alcohol and Drug AbusePatient Records regulations: The Federal rules restrict any use of the information to criminally investigate or prosecute any alcohol or drug abuse patient.[facility] Encounter Details Date Type Department Care Team (Late st Contact Info) Description 2022 [place] [address] Provider, [facility] Medicare Coverage of Physical Exams [...] N ot on file 01/25/2022 Data from: https://www.neighborhoodatlas.medicine.[facility].edu/. Last address used for calculation [address] [...] 12:34 PM EDT Tobi, V kalpana L (Drophammer Operator), PRODUCTION CONTROL SUPERVISOR * Are you blind or do you have serious difficulty seeing, even when wearing glasses? Answer Date of Assessment Author No 12/28/2014 12:34 PM EDT Tobi, V kalpana L (Drophammer Operator), PRODUCTION CONTROL SUPERVISOR * Do you have serious difficulty walking or climbing stairs? Answer Date of Assessment Author No 12/28/2014 12:34 PM EDT Tobi, V kalpana L (Drophammer Operator), PRODUCTION CONTROL SUPERVISOR * Do you have difficulty dressing or bathing? Answer Date of Assessment Author No 12/28/2014 12:34 PM EDT Tobi, V kalpana L (Drophammer Operator), PRODUCTION CONTROL SUPERVISOR * Because of a physical, mental, or emotional condition, do you have difficulty doing errands alone such as visiting a doctor's office or shopping? Answer Date of Assessment Author No 12/28/2014 12:34 PM EDT Tobi, V kalpana L (Drophammer Operator), PRODUCTION CONTROL SUPERVISOR documented as of this encounter Mental Status * Because of a physical, mental, or emotional condition, do you have serious difficulty concentrating, remembering, or making decisions? Answer Entry Date Author No 12/28/2014 12:34 PM EDT Tobi, V kalpana L (Drophammer Operator), PRODUCTION CONTROL SUPERVISOR documented in this encounter Plan of Treatment Upcoming Encounters Date Type Department Care Team (Late st Contact Info) Description 06/03/2025 9:30 AM EDT Office Visit [facility] Laboratory [address] [place] [address] [place] [address] lab 08/26/2025 1:00 PM EST Office Visit Cardiology [address] [place], [place] [phone] Emanuel Whitten MD [address] [place], [place] [phone] Return in about 7 months (around 08/26/2025). documented as of this encounter Visit Diagnoses Not on filedocumented in this encounter Care Teams Network Administrator Relationship Specialty Start Date End Date Arden Sams PA-C PCP - General Internal Medicine 07/06/18 Mehnaz Lowry APRN.PELTS SKINNER [address] [place] [address] Primary Staff Physician Nephrology 10/04/21 documented as of this encounter
--- OUTSIDE RECORDS SUMMARY | 2025-04-25 14:33 | XMS_ITS | Encounter Summary ---
Author Organization [facility] Address [address] [place] [address] Care Team Providers Care Director Of Physical Therapy Name Role Phone Arden Sams PA-C Primary Care Provider Mehnaz Lowry APRN.CRADLE SLIDE MAKER Unavailable [phone] Source Comments In the event this information is protected by the Federal Confidentiality of Alcohol and Drug AbusePatient Records regulations: The Federal rules restrict any use of the information to criminally investigate or prosecute any alcohol or drug abuse patient.[facility] Encounter Details Date Type Department Care Team (Late st Contact Info) Description 03/19/2024 Get Medical Advice Kidney Medicine [facility] [address] [phone] Mehnaz Lowry, PEAT SHREDDER TENDER.CRADLE SLIDE MAKER [address] [place] [address] medication Social History Tobacco Use [...] N ot on file 09/20/2022 Data from: https://www.neighborhoodatlas.medicine.[facility]/. Last address used for calculation [address] [...] Office Visit [facility] Laboratory [address] [place] [address] [place] [address] lab 08/26/2025 1:00 PM EST Office Visit Cardiology [address] [facility] [place] [address] Emanuel Whitten MD [address] [place], [place] [phone] Return in about 7 months (around 08/26/2025). documented as of this encounter Goals Goal Patient Goal Type Associated Problems Recent Progress Patient-Stated? Author Blood Pressure < 130/80 Blood Pressure 116/76( 025 2:56 PM EDT) No Amanda Ramirez MA documented as of this encounter Visit Diagnoses Not on filedocumented in this encounter Care Teams Director Of Physical Therapy Relationship Specialty Start Date End Date Arden Sams PA-C PCP - General Internal Medicine 07/06/18 Mehnaz Lowry APRN.CRADLE SLIDE MAKER [address] [place] [address] Primary Staff Physician Nephrology 10/04/21 documented as of this encounter
--- OUTSIDE RECORDS SUMMARY | 2025-04-25 14:33 | XMS_ITS | Encounter Summary ---
Author Organization [facility] Address [address] [place] [id number] Care Team Providers Care Hand Picker Name Role Phone Arden Sams PA-C Primary Care Provider Mehnaz Lowry APRN.EMERGENCY MANAGER Unavailable Source Comments In the event this information is protected by the Federal Confidentiality of Alcohol and Drug AbusePatient Records regulations: The Federal rules restrict any use of the information to criminally investigate or prosecute any alcohol or drug abuse patient.[facility] Encounter Details Date Type Department Care Team (Late st Contact Info) Description 08/27/2024 Patient Msg Cardiology [address] [address] Provider, [facility] CARDIOVERSION Social History [...] Assessment Author No 03/06/2024 11:12 AM EDT Zhnana Lozada RN * Do you have serious [...] 06/03/2025 9:30 AM EDT Office Visit [facility] [address] [place] [address] [place] [address] lab 08/26/2025 1:00 PM EST Office Visit Cardiology [address] [facility] [place] [address] Emanuel Whitten MD [address] [place] [address] Return in about 7 months (around 08/26/2025). documented as of this encounter Goals Goal Patient Goal Type Associated Problems Recent Progress Patient-Stated? Author Blood Pressure < 130/80 Blood Pressure 116/76( 025 2:56 PM EDT) No Amanda Ramirez MA documented as of this encounter Visit Diagnoses Not on filedocumented in this encounter Care Teams Hand Picker Relationship Specialty Start Date End Date Arden Sams PA-C PCP - General Internal Medicine 07/06/18 Mehnaz Lowry APRN.EMERGENCY MANAGER [address] [place] [address] Primary Staff Physician Nephrology 10/04/21 documented as of this encounter
--- OUTSIDE RECORDS SUMMARY | 2025-04-25 14:33 | XMS_ITS | Encounter Summary ---
Author Organization [facility] Address [address] [place] [address] Care Team Providers Care Vice President Of Software Engineering Name Role Phone Sukhwinder Gill Primary Care Provider U Brendan Scott NP Primary Care Provider [phone] Arden Sams PA-C Primary Care Provider Mehnaz Lowry APRN.LOOPER OPERATOR Unavailable [phone] Source Comments In the event this information is protected by the Federal Confidentiality of Alcohol and Drug AbusePatient Records regulations: The Federal rules restrict any use of the information to criminally investigate or prosecute any alcohol or drug abuse patient.[facility] Encounter Details Date Type Department Care Team (Late st Contact Info) Description 05/12/2017 Get Medical Advice Kidney Medicine [facility] [address] [phone] [place] [address] [place] [address] RE: Upcoming Appointment Question Social History [...] 12:34 PM EDT Tobi, V kalpana L (Tool Grinder Set Up Operator Gear), MANAGED CARE PROVIDER * Are you blind or do you have serious difficulty seeing, even when wearing glasses? Answer Date of Assessment Author No 12/28/2014 12:34 PM EDT Tobi, V kalpana L (Tool Grinder Set Up Operator Gear), MANAGED CARE PROVIDER * Do you have serious difficulty walking or climbing stairs? Answer Date of Assessment Author No 12/28/2014 12:34 PM EDT Tobi, V kalpana L (Tool Grinder Set Up Operator Gear), MANAGED CARE PROVIDER * Do you have difficulty dressing or bathing? Answer Date of Assessment Author No 12/28/2014 12:34 PM EDT Tobi, V kalpana L (Tool Grinder Set Up Operator Gear), MANAGED CARE PROVIDER * Because of a physical, mental, or emotional condition, do you have difficulty doing errands alone such as visiting a doctor's office or shopping? Answer Date of Assessment Author No 12/28/2014 12:34 PM EDT Tobi, V kalpana L (Tool Grinder Set Up Operator Gear), MANAGED CARE PROVIDER documented as of this encounter Mental Status * Because of a physical, mental, or emotional condition, do you have serious difficulty concentrating, remembering, or making decisions? Answer Entry Date Author No 12/28/2014 12:34 PM EDT Tobi, V kalpana L (Tool Grinder Set Up Operator Gear), MANAGED CARE PROVIDER documented in this encounter Plan of Treatment Upcoming Encounters Date Type Department Care Team (Late st Contact Info) Description 06/03/2025 9:30 AM EDT Office Visit [facility] [address] [place] [address] [place] [address] lab 08/26/2025 1:00 PM EST Office Visit Cardiology [address] [facility] [place] [address] Emanuel Whitten MD [address] [facility] [place] [address] Return in about 7 months (around 08/26/2025). documented as of this encounter Visit Diagnoses Not on filedocumented in this encounter Care Teams Vice President Of Software Engineering Relationship Specialty Start Date End Date Sukhwinder Gill PCP - General 05/14/07 07/06/17 Berndan Rivas NP [address] [place] [address] PCP - General Family Medicine 07/07/17 07/05/18 Arden Sams PA-C [address] [place] [address] PCP - General Internal Medicine 07/06/18 Mehnaz Lowry APRN.LOOPER OPERATOR [address] [place] [address] Primary Staff Physician Nephrology 10/04/21 documented as of this encounter
--- OUTSIDE RECORDS SUMMARY | 2025-04-25 14:33 | XMS_ITS | Clinical Summary ---
Author Organization [facility] Address [address] [place] [address] Care Team Providers Care Neonatal Nurse Practitioner Name Role Phone Arden Sams PA-C Primary Care Provider Mehnaz Lowry APRN.SENIOR ACCOUNTS PAYABLE CLERK Unavailable [phone] Allergies No known active allergies Medications CALCIUM CARBONATE/VITAMIN D3 (CALCIUM + D ORAL) Take one(1) tablet two(2) times daily. Active gabapentin (NEURONTIN) 300 mg capsule Take 300 mg by mouth twice daily. 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 Active sulfamethoxazole- trimethoprim (BACTRIM) 400-80 mg per tabletIndications :Need for pneumocystis prophylaxis Take 1 tablet by mouth every Friday, Friday, and Friday. 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 180 tablet 3 01/25/20 25 Active rivaroxaban (XARELTO) 20 mg tablet Take 1 tablet by mouth daily with dinner. 90 tablet 3 03/30/20 25 Active rivaroxaban (XARELTO) 20 mg tablet Take 1 tablet by mouth daily with dinner. 90 tablet 3 04/09/20 24 025 Discontinued Active Problems Problem Noted Date Diagnosed Date [...] Encounters Date Type Department Care Team Description 03/30/2025 Get Medical Advice Cardiology [address] [facility] [place] [id number] Emanuel Scott MD xarelto 02/22/2025 Travel 01/24/2025 3:00 PM EDT Office Visit Cardiology [address] [facility] [place] [address] Emanuel Scott MD PAF (paroxysmal atrial fibrillation) (HCC) (Primary Dx); Other cardiomyopathy (HCC); Aneurysm of ascending aorta without rupture; S/P ablation of atrial fibrillation 01/24/2025 1:50 PM EDT Office Visit Cardiology [address] [facility] [place] [id number] Alyce Railcar Foreman [facility] Cardiomyopathy, unspecified type (HCC); Aneurysm of ascending aorta without rupture from Last 3 Months Immunizations Immunization Administration Dates Next Due influenza (HD-IIV3) vaccine, age 65+ yr, high dose, trivalent, PF (FLUZONE HIGH-DOSE) 07/06/2024 influenza (HD-IIV4) vaccine, age 65+ yr, high dose, quadrivalent, PF (FLUZONE HIGH-DOSE) 07/01/2022 influenza (IIV4) vaccine, ag e 6 mo - 64 yr, quadrivalent (AFLURIA, FLULAVAL, FLUZONE) 07/05/2021,07/03/2020,07/05/2019 influenza vaccine, unspecifi ed formulation 05/09/2016,06/21/2010,07/13/2009 06/21/2011 novel influenza (R9L1-49) va ccine, unspecified formulation 07/13/2009 07/13/2010 pneumococcal (PCV7) vaccine, 7 valent (PREVNAR 7) 02/07/2009 tuberculin skin test (TST-PP D), purified protein derivative, intradermal 12/31/2008 Family History Medical History Relation Comments Polycystic Kidney [Other] Brother 2 CVA [Other] Father Emphysema Father Polycystic Kidney [Other] Mother Relation Status Comments Brother 1 Alive PKD- not on dial ysis yet, [place] Brother 2 Father (Age 80) emphysema, CVA [...] N ot on file 09/20/2022 Data from: [email or web address].medicine.[email or web address].[email or web address] Last address used for calculation [address] 09/20/2022 Sex and Gender Information Value [...] 9:30 AM EDT Office Visit [facility] [address] [place] [address] [place] [address] lab 08/26/2025 1:00 PM EST Office Visit Cardiology [address] [facility] [place] [address] Emanuel Scott MD [address] [facility] [address] [place], [place] [phone] Return in about 7 months (around 08/26/2025). Health Maintenance Due Date Last Done Comments Annual PCP Team Chronic Dise ase Visit [...] Wellness Visit 05/09/2022 Advance Directive Discussion 09/08/2024 Influenza Vaccine (#1) 2025 , 07/01/2022, 07/05/2021, Additional history exists Serum Creatinine 03/04/2026 03/04/2025, , 08/30/2024, Additional history exists Diabetes Screening 03/04/2028 03/04/2025, 0 11/30/2024, 08/30/2024, Additional history exists Lipid Screening 12/01/2028 12/02/2023, 02/07, 12/05/2018, Additional history exists Prostate Cancer Screening Discussion 03/04/2030 03/04/2025, 04/29/2023, 09/03/2022, Additional history exists Hepatitis C Screening Completed 01/23/2009, 009 Goals Goal Patient Goal Type Associated Problems Recent Progress Patient-Stated? Author Blood Pressure < 130/80 Blood Pressure 116/76( 025 2:56 PM EDT) No Amanda Ramirez MA Medical Devices Implanted Type Area Import/Export Clerk Device Identifier Shelf Expiration Date Model / Serial / Lot Mesh Srg Pco Optim 8x6in - [id number] Implanted:Qty: 1 on 02/05/2012 at [facility] Mesh N/A: Abdomen [facility] 05/09/2013 [id number] / / [id number] Description:Optimized Compos ite mesh Procedures Procedure Name Priority Date/Time Associated Diagnosis Comments PSA/PROSTSPECAG SCRN Routine 03/04/2025 10:07 AM EDT Special screening for malignant neoplasm of prostate COMPREHENSIVE METABOLIC PANEL Routine 03/04/2025 10:07 AM EDT 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) MAGNESIUM BLD Routine 03/04/2025 10:07 AM EDT Hypomagnesemia 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) PHOSPHORUS INORGANIC Routine 03/04/2025 10:07 AM EDT 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) CBC + DIFF Routine 03/04/2025 10:07 AM EDT 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) TACROLIMUS/FK-506 BL Routine 03/04/2025 10:07 AM EDT 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) LVEF TRANSTHORACIC ECHO Routine 01/24/2025 1:39 PM EDT ECHO Routine 01/24/2025 1:39 PM EDT Cardiomyopathy, unspecified type (HCC) Aneurysm of ascending aorta without rupture LIPID PANEL, FASTING Routine 12/02/2023 9:32 AM EDT Persistent atrial fibrillation (HCC) Abnormal EKG Encounter for lipid screening for cardiovascular disease HEPATITIS C VIRUS (HCV) RNA, QUANTITATIVE PCR, PLASMA/SERUM Routine 01/23/2009 11:52 AM EDT Renal Failure Nos from Last 3 Months or Most Recently Relevant to Health Maintenance Results * (ABNORMAL) MAGNESIUM (03/04/2025 10:07 AM EDT) Pathologist [facility] Magnesium 1.6(L) 1.7 - 2.3 mg/dL 03/04/2025 10:57 AM EDT [facility] Blood BLOOD SPECIMEN / Unknown Venipuncture / Unknown 03/04/2025 10:07 AM EDT 03/04/2025 10:07 AM EDT us Leandro Oneil MD LABORATORY Final Result [facility] [address] [place] [address] * (ABNORMAL) PSA/PROSTATE SPECIFIC ANTIGEN SCREENING (03/04/2025 10:07 AM EDT) Pathologist [facility] PSA Screening 4.01(H) <2.60 ng/mL 03/04/2025 6:19 PM EDT [facility] Comment: Total PSA test methodology used [...] BLOOD SPECIMEN / Unknown Venipuncture / Unknown 03/04/2025 10:07 AM EDT 03/04/2025 10:07 AM EDT Jena Hunter SENIOR ACCOUNTS PAYABLE CLERK LABORATORY Final Result Performing Organization Address [facility]/ZIP Co de Phone Number [facility] [address] [place] [address], [place] * TACROLIMUS/FK-506 BL (03/04/2025 10:07 AM EDT) Tacrolimus/FK506 6.5 5.0 - 20.0 ng/mL 03/04/2025 6:19 PM EDT [facility] Comment:Individualized targe t levels for a [...] situation. Test performed by chemiluminescent immunoassay using [employer] i. Blood BLOOD SPECIMEN / Unknown Venipuncture / Unknown 03/04/2025 10:07 AM EDT 03/04/2025 10:07 AM EDT Leandro Oneil MD LABORATORY Final Result Performing Organization Address [facility]/ZIP Co de Phone Number [facility] [address] [place] [address], [place] * PHOSPHORUS INORGANIC (03/04/2025 10:07 AM EDT) Phosphorus 2.9 2.7 - 4.8 mg/dL 03/04/2025 10:57 AM EDT [facility] Blood BLOOD SPECIMEN / Unknown Venipuncture / Unknown 03/04/2025 10:07 AM EDT 03/04/2025 10:07 AM EDT Leandro Oneil MD LABORATORY Final Result [facility] [address] [place] [address] * (ABNORMAL) COMPREHENSIVE METABOLIC PANEL (03/04/2025 10:07 AM EDT) Pathologist [facility] Protein, Total 6.1(L) 6.3 - 8.0 g/dL 03/04/2025 10:57 AM EDT [facility] Albumin 3.9 3.9 - 4.9 g/dL 03/04/2025 10:57 AM EDT [facility] Calcium, Total 9.8 8.5 - 10.2 mg/dL 03/04/2025 10:57 AM EDT [facility] Bilirubin, Total 1.2 0.2 - 1.3 mg/dL 03/04/2025 10:57 AM EDT [facility] Alkaline Phosphatase 58 38 - 113 U/L 03/04/2025 10:57 AM EDT [facility] AST 15 14 - 40 U/L 03/04/2025 10:57 AM EDT [facility] ALT 11 10 - 54 U/L 03/04/2025 10:57 AM EDT [facility] Glucose 125(H) 74 - 99 mg/dL 03/04/2025 10:57 AM EDT [facility] Comment: The [place] Diabetes Association (ADA) provides guidance for cutoff [...] Standards of Medical Care in Diabetes 2016, [place] [employer]. Diabetes Care. 2016.39(Suppl 1). BUN 16 9 - 24 mg/dL 03/04/2025 10:57 AM EDT [facility] Creatinine 1.17 0.73 - 1.22 mg/dL 03/04/2025 10:57 AM EDT [facility] Sodium 140 136 - 144 mmol/L 03/04/2025 10:57 AM EDT [facility] Potassium 4.1 3.7 - 5.1 mmol/L 03/04/2025 10:57 AM EDT [facility] Chloride 105 98 - 107 mmol/L 03/04/2025 10:57 AM EDT [facility] CO2 24 22 - 30 mmol/L 03/04/2025 10:57 AM EDT [facility] Anion Gap 11 8 - 15 mmol/L 03/04/2025 10:57 AM EDT [facility] Estimated Glomerular Filtration Rate 68 >=60 mL/min/1. 73m 03/04/2025 10:57 AM EDT [facility] Comment:Estimated Glomerular Filtration Rate (eGFR) [...] BLOOD SPECIMEN / Unknown Venipuncture / Unknown 03/04/2025 10:07 AM EDT 03/04/2025 10:07 AM EDT us Leandro Oneil MD LABORATORY Final Result [facility] [address] [place] [address] * (ABNORMAL) COMPLETE BLOOD COUNT AND DIFFERENTIAL (03/04/2025 10:07 AM EDT) WBC 6.01 3.70 - 11.00 k/uL 03/04/2025 10:37 AM EDT [facility] RBC 4.49 4.20 - 6.00 m/uL 03/04/2025 10:37 AM EDT [facility] Hemoglobin 14.5 13.0 - 17.0 g/dL 03/04/2025 10:37 AM EDT [facility] Hematocrit 41.5 39.0 - 51.0 % 03/04/2025 10:37 AM EDT [facility] MCV 92.4 80.0 - 100.0 fL 03/04/2025 10:37 AM EDT [facility] MCH 32.3 26.0 - 34.0 pg 03/04/2025 10:37 AM EDT [facility] MCHC 34.9 30.5 - 36.0 g/dL 03/04/2025 10:37 AM EDT [facility] RDW-CV 12.8 11.5 - 15.0 % 03/04/2025 10:37 AM EDT [facility] Platelet Count 143(L) 150 - 400 k/uL 03/04/2025 10:37 AM EDT [facility] MPV 9.2 9.0 - 12.7 fL 03/04/2025 10:37 AM EDT [facility] Neutrophils % 52.9 % 03/04/2025 10:37 AM EDT [facility] Abs Neut 3.18 1.45 - 7.50 k/uL 03/04/2025 10:37 AM EDT [facility] Lymphocytes % 35.4 % 03/04/2025 10:37 AM EDT [facility] Abs Lymph 2.13 1.00 - 4.00 k/uL 03/04/2025 10:37 AM EDT [facility] Monocytes % 8.2 % 03/04/2025 10:37 AM EDT [facility] Abs Randall 0.49 <0.87 k/uL 03/04/2025 10:37 AM EDT [facility] Eosinophils % 2.3 % 03/04/2025 10:37 AM EDT [facility] Abs Eosin 0.14 <0.46 k/uL 03/04/2025 10:37 AM EDT [facility] Basophils % 0.7 % 03/04/2025 10:37 AM EDT [facility] Abs Baso 0.04 <0.11 k/uL 03/04/2025 10:37 AM EDT [facility] Immature Granulocytes % 0.5 % 03/04/2025 10:37 AM EDT [facility] Abs Immature Gran 0.03 <0.10 k/uL 025 10:37 AM EDT [facility] NRBC 0.0 /100 WBC 03/04/2025 10:37 AM EDT [facility] Absolute nRBC <0.01 <0.01 k/uL 03/04/2025 10:37 AM EDT [facility] Diff Type Auto 03/04/2025 10:37 AM EDT [facility] Blood BLOOD SPECIMEN / Unknown Venipuncture / Unknown 03/04/2025 10:07 AM EDT 03/04/2025 10:07 AM EDT us Leandro Oneil MD LABORATORY Final Result [facility] [address] [place] [address] * ECHO (01/24/2025 1:39 PM EDT) 01/24/2025 1:39 PM EDT [facility] - 01/24/2025 3:06 [...] * * * Final * * * [facility] - 01/24/2025 3:06 PM EDT Echocardiography Report: Transthoracic Echo [facility] Date of service: 01/24/2025 1:39:57 PM PELLETER Ordering physician: EMANUEL SCOTT Indication: CM Technologist: [...] us Emanuel Scott MD ECHO Final Result [facility] [address] [place] [address] * LVEF TRANSTHORACIC ECHO (01/24/2025 1:39 PM EDT) LV Ejection Fraction 61 % [facility] Comment: (2D biplane) EF > 52 An LV Ejection Fraction of > 50% is normal 01/24/2025 1:39 PM EDT us Emanuel Scott MD LVEF RESULTS Final Result [facility] [address] [place] [address] * (ABNORMAL) LIPID PANEL BASIC (12/02/2023 9:32 AM EDT) Cholesterol, Total 166 <200 mg/dL 12/02/2023 7:19 PM EDT [facility] Comment: <200 mg/dL, Desirable 200-239 mg/dL, Borderline high >239 mg/dL, High Triglyceride 122 <150 mg/dL 12/02/2023 7:19 PM EDT [facility] Comment: <150 mg/dL, Normal 150-199 mg/dL, Borderline high 200-499 mg/dL, High >499 mg/dL, Very high HDL Cholesterol 37(L) >39 mg/dL 7:19 PM EDT [facility] Comment: 40-59 mg/dL, Acceptable >59 mg/dL, High: Negative risk factor for coronary heart disease <40 mg/dL, Low: Positive risk factor for coronary heart disease Non HDL Cholesterol 129 <130 mg/dL 12/02/2023 7:19 PM EDT [facility] Comment: <130 mg/dL, Optimal 130-159 mg/dL, Near optimal/above optimal 160-189 mg/dL, Borderline high 190-219 mg/dL, High >219 mg/dL, Very high Secondary prevention optimal non HDL Cholesterol levels are recommended to be <100 mg/dL Fasting Time 12 hrs 12/02/2023 7:19 PM EDT [facility] VLDL Cholesterol 24 <30 mg/dL 12/02/19 7:19 PM EDT [facility] TC:HDL Ratio 4.49 <5.10 12/02/2023 7:19 PM EDT [facility] LDL Cholesterol, Calculated 105(H) <100 mg/dL 12/02/2023 7:19 PM EDT [facility] Comment: <100 mg/dL, Optimal 100-129 mg/dL, Near optimal/above optimal 130-159 mg/dL, Borderline high 160-189 mg/dL, High >189 mg/dL, Very high Secondary prevention optimal LDL Cholesterol levels are recommended to be < 70 mg/dL LDL:HDL Ratio 2.84(H) <2.54 12/02/2023 7:19 PM EDT [facility] Comment: Reference: 1. National Cholesterol Education Program ATP III Guideline At-A-Glance Quick Desk Reference: National Heart, Lung, and Blood [place]. National Institutes of Health. 2001: NIH Publication No. 01-3305. 2. An International Atherosclerosis Society position paper: global recommendations for the management of dyslipidemia: executive summary, Atherosclerosis. 2014: 232(2):410-413. Blood BLOOD SPECIMEN / Unknown Venipuncture / Unknown 12/02/2023 9:32 AM EDT 12/02/2023 9:32 AM EDT Emanuel Scott MD LABORATORY Final Result [facility] [address] [id number] [place] [id number], [facility] [address] [place] [address] * HCV QUANT RNA BY PCR (01/23/2009 11:52 AM EDT) [facility] HCV RNA by PCR No HCV RNA Detected. [facility] Comment: The linear range of this assay is 600 IU/mL to 700,000 IU/mL. This test was developed and its performance characteristics determined by the Pathology and Laboratory Medicine [place] at the [facility]. The U.S. Food and Drug Administration has not approved or cleared this test, however, FDA clearance or approval is not currently required for clinical use. Blood specimen (specimen) BLOOD SPECIMEN / Unknown 01/23/2009 11:52 AM EDT us Carolina Nevarez MD LABORATORY Final Result [facility] [address] [place] [address] from Last 3 Months or Most Recently Relevant to Health Maintenance Insurance MEDICARE Mail Code [address] [place] [id number] Care Teams Neonatal Nurse Practitioner Relationship Specialty Start Date End Date Arden Sams PA-C PCP - General Internal Medicine 07/06/18 Mehnaz Lowry, BED AND BREAKFAST OPERATOR.SENIOR ACCOUNTS PAYABLE CLERK [address] [place] [address] Primary Staff Physician Nephrology 10/04/21
--- OUTSIDE RECORDS SUMMARY | 2025-04-25 14:33 | XMS_ITS | Encounter Summary ---
Author Organization [facility] Address [address] [place] [address] Care Team Providers Care Machining Engineer Name Role Phone Arden Sams PA-C Primary Care Provider Mehnaz Lowry APRN.SUPERVISOR FABRICATION AND ASSEMBLY Unavailable [phone] Source Comments In the event this information is protected by the Federal Confidentiality of Alcohol and Drug AbusePatient Records regulations: The Federal rules restrict any use of the information to criminally investigate or prosecute any alcohol or drug abuse patient.[facility] Encounter Details Date Type Department Care Team (Late st Contact Info) Description 01/21/2024 Patient Msg Cardiology [address] [facility] [address] [place] [address] Provider, Ccf PVI ABLATION Social [...] 12:34 PM EDT Tobi, V kalpana L (Site Surveyor), [employer] HAZMAT TANKER DRIVER * Are you blind or do you have serious difficulty seeing, even when wearing glasses? Answer Date of Assessment Author No 12/28/2014 12:34 PM EDT Tobi, V kalpana L (Site Surveyor), [employer] HAZMAT TANKER DRIVER * Do you have serious difficulty walking or climbing stairs? Answer Date of Assessment Author No 12/28/2014 12:34 PM EDT Tobi, V kalpana L (Site Surveyor), [employer] HAZMAT TANKER DRIVER * Do you have difficulty dressing or bathing? Answer Date of Assessment Author No 12/28/2014 12:34 PM EDT Tobi, V kalpana L (Site Surveyor), [employer] HAZMAT TANKER DRIVER * Because of a physical, mental, or emotional condition, do you have difficulty doing errands alone such as visiting a doctor's office or shopping? Answer Date of Assessment Author No 12/28/2014 12:34 PM EDT Tobi, V kalpana L (Site Surveyor), [employer] HAZMAT TANKER DRIVER documented as of this encounter Mental Status * Because of a physical, mental, or emotional condition, do you have serious difficulty concentrating, remembering, or making decisions? Answer Entry Date Author No 12/28/2014 12:34 PM EDT Tobi, V kalpana L (Site Surveyor), [employer] HAZMAT TANKER DRIVER documented in this encounter Plan of Treatment Upcoming Encounters Date Type Department Care Team (Late st Contact Info) Description 06/03/2025 9:30 AM EDT Office Visit [facility] [address] [place] [address] [place] [address] lab 08/26/2025 1:00 PM EST Office Visit Cardiology [address] [facility] [place] [address] Emanuel Whitten MD [address] [place] [address] Return in about 7 months (around 08/26/2025). documented as of this encounter Goals Goal Patient Goal Type Associated Problems Recent Progress Patient-Stated? Author Blood Pressure < 130/80 Blood Pressure 116/76( 025 2:56 PM EDT) No Amanda Ramirez MA documented as of this encounter Visit Diagnoses Not on filedocumented in this encounter Care Teams Machining Engineer Relationship Specialty Start Date End Date Arden Sams PA-C PCP - General Internal Medicine 07/06/18 Mehnaz Lowry APRN.SUPERVISOR FABRICATION AND ASSEMBLY [address] [place] [address] Primary Staff Physician Nephrology 10/04/21 documented as of this encounter
--- OUTSIDE RECORDS SUMMARY | 2025-04-25 14:33 | XMS_ITS | Encounter Summary ---
Author Organization [facility] Address [address] [place] [address] Care Team Providers Care Metal Cnc Operator Name Role Phone Arden Sams PA-C Primary Care Provider Mehnaz Lowry APRN.COMPARATIVE SOCIOLOGY PROFESSOR Unavailable [phone] Source Comments In the event this information is protected by the Federal Confidentiality of Alcohol and Drug AbusePatient Records regulations: The Federal rules restrict any use of the information to criminally investigate or prosecute any alcohol or drug abuse patient.[facility] Encounter Details Date Type Department Care Team (Late st Contact Info) Description 02/07/2022 Get Medical Advice Urology [address] [id number] Giorgio Burks MD [address] [place] [address] Blood test Social History Tobacco Use [...] N ot on file 01/25/2022 Data from: https://www.neighborhoodatlas.[facility].edu/. Last address used for calculation [address] [...] 12:34 PM EDT Tobi, V kalpana L (Artificial Cherry Maker), OPERATIONS BUSINESS PARTNER * Are you blind or do you have serious difficulty seeing, even when wearing glasses? Answer Date of Assessment Author No 12/28/2014 12:34 PM EDT Tobi, V kalpana L (Artificial Cherry Maker), OPERATIONS BUSINESS PARTNER * Do you have serious difficulty walking or climbing stairs? Answer Date of Assessment Author No 12/28/2014 12:34 PM EDT Tobi, V kalpana L (Artificial Cherry Maker), OPERATIONS BUSINESS PARTNER * Do you have difficulty dressing or bathing? Answer Date of Assessment Author No 12/28/2014 12:34 PM EDT Tobi, V kalpana L (Artificial Cherry Maker), OPERATIONS BUSINESS PARTNER * Because of a physical, mental, or emotional condition, do you have difficulty doing errands alone such as visiting a doctor's office or shopping? Answer Date of Assessment Author No 12/28/2014 12:34 PM EDT Tobi, V kalpana L (Artificial Cherry Maker), OPERATIONS BUSINESS PARTNER documented as of this encounter Mental Status * Because of a physical, mental, or emotional condition, do you have serious difficulty concentrating, remembering, or making decisions? Answer Entry Date Author No 12/28/2014 12:34 PM EDT Tobi, V kalpana L (Artificial Cherry Maker), OPERATIONS BUSINESS PARTNER documented in this encounter Plan of Treatment Upcoming Encounters Date Type Department Care Team (Late st Contact Info) Description 06/03/2025 9:30 AM EDT Office Visit [facility] [address] [place] [address] lab 08/26/2025 1:00 PM EST Office Visit Cardiology [address] [facility] [place] [address] Emanuel Whitten MD [address] [facility] [address] [place], [place] [phone] Return in about 7 months (around 08/26/2025). documented as of this encounter Visit Diagnoses Not on filedocumented in this encounter Care Teams Metal Cnc Operator Relationship Specialty Start Date End Date Arden Sams PA-C PCP - General Internal Medicine 07/06/18 Mehnaz Lowry, KNITTING MACHINE FIXER.COMPARATIVE SOCIOLOGY PROFESSOR [address] [place] [address] Primary Staff Physician Nephrology 10/04/21 documented as of this encounter
--- OUTSIDE RECORDS SUMMARY | 2025-04-25 14:33 | XMS_ITS | Encounter Summary ---
Author Organization [facility] Address [facility] [place] [address] Care Team Providers Care Distribution Engineering Technologist Name Role Phone Arden Sams PA-C Primary Care Provider Mehnaz Lowry APRN.SUPPLIER DIVERSITY DIRECTOR Unavailable [phone] Source Comments In the event this information is protected by the Federal Confidentiality of Alcohol and Drug AbusePatient Records regulations: The Federal rules restrict any use of the information to criminally investigate or prosecute any alcohol or drug abuse patient.[facility] Encounter Details Date Type Department Care Team (Late st Contact Info) Description 02/17/2022 Lab Requisition [facility] [address] [place] [address] Mehnaz Lowry, PROPAGATOR LABORER.SUPPLIER DIVERSITY DIRECTOR [address] [place] [address] Kidney transplant status Social History [...] N ot on file 01/25/2022 Data from: https://www.neighborhoodatlas.medicine.[facility]/. Last address used for calculation [address] [...] 12:34 PM EDT Tobi, V kalpana L (Band Splicer), BUTT MAKER * Are you blind or do you have serious difficulty seeing, even when wearing glasses? Answer Date of Assessment Author No 12/28/2014 12:34 PM EDT Tobi, V kalpana L (Band Splicer), BUTT MAKER * Do you have serious difficulty walking or climbing stairs? Answer Date of Assessment Author No 12/28/2014 12:34 PM EDT Tobi, V kalpana L (Band Splicer), BUTT MAKER * Do you have difficulty dressing or bathing? Answer Date of Assessment Author No 12/28/2014 12:34 PM EDT Tobi, V kalpana L (Band Splicer), BUTT MAKER * Because of a physical, mental, or emotional condition, do you have difficulty doing errands alone such as visiting a doctor's office or shopping? Answer Date of Assessment Author No 12/28/2014 12:34 PM EDT Tobi, V kalpana L (Band Splicer), BUTT MAKER documented as of this encounter Mental Status * Because of a physical, mental, or emotional condition, do you have serious difficulty concentrating, remembering, or making decisions? Answer Entry Date Author No 12/28/2014 12:34 PM EDT Tobi, V kalpana L (Band Splicer), BUTT MAKER documented in this encounter Plan of Treatment Upcoming Encounters Date Type Department Care Team (Late st Contact Info) Description 06/03/2025 9:30 AM EDT Office Visit [facility] [address] [place] [address] [place] [address] lab 08/26/2025 1:00 PM EST Office Visit Cardiology [address] [facility] [place] [address] Emanuel Whitten MD [address] [facility] [place] [id number] Return in about 7 months (around 08/26/2025). [...] 02/17/2022 4:08 AM EDT us Mehnaz Lowry PROPAGATOR LABORER.SUPPLIER DIVERSITY DIRECTOR LABORATORY Final R esult [facility] [address] [address], * BK VIRUS PCR,QUANT,P (02/16/2022 8:30 AM EDT) BKV DNA BK Virus DNA Not Detected by PCR. BK Virus DNA Not Detected by PCR. OLLIE LUKE 6800 02/18/2022 6:02 AM EDT [facility] Blood BLOOD SPECIMEN / Unknown 02/16/2022 8:30 AM EDT 02/17/2022 4:08 AM EDT Narrative [facility] - 02/18/2022 6:02 AM EDT Linear Range is 21.5 IU/mL to 100,000,000 IU/mL. us Mehnaz Lowry PROPAGATOR LABORER.SUPPLIER DIVERSITY DIRECTOR LABORATORY Final R esult Performing Organization Address [facility] Co de Phone Number [facility] [address] [place] [address], * TACROLIMUS/FK-506 BL (02/16/2022 8:30 AM EDT) Tacrolimus/FK506 9.8 5.0 - 20.0 ng/mL 02/17/2022 12:39 PM EDT [facility] Comment: These reference ranges [...] situation. Test performed by chemiluminescent immunoassay using [employer]. Blood BLOOD SPECIMEN / Unknown 02/16/2022 8:30 AM EDT 02/17/2022 4:08 AM EDT Mehnaz Lowry PROPAGATOR LABORER.SUPPLIER DIVERSITY DIRECTOR LABORATORY Final R esult Performing Organization Address [facility] Co de Phone Number [facility] [address] documented in this encounter Visit Diagnoses Diagnosis Kidney transplant status (HCC) documented in this encounter Care Teams Distribution Engineering Technologist Relationship Specialty Start Date End Date Arden Sams PA-C PCP - General Internal Medicine 07/06/18 Mehnaz Lowry APRN.CNP [address] [place] [address] Primary Staff Physician Nephrology 10/04/21 documented as of this encounter
--- OUTSIDE RECORDS SUMMARY | 2025-04-25 14:33 | XMS_ITS | Encounter Summary ---
Author Organization [facility] Address [address] [place] [address] Care Team Providers Care Shank Stapler Name Role Phone Arden Sams PA-C Primary Care Provider Mehnaz Lowry APRN.MANAGER STRATEGIC DEVELOPMENT Unavailable [phone] Source Comments In the event this information is protected by the Federal Confidentiality of Alcohol and Drug AbusePatient Records regulations: The Federal rules restrict any use of the information to criminally investigate or prosecute any alcohol or drug abuse patient.[facility] Encounter Details Date Type Department Care Team (Late st Contact Info) Description 01/16/2022 Patient Msg Urology [address] [id number] Dorcas Haider, TWIST TESTER.MANAGER STRATEGIC DEVELOPMENT [address] [facility], [address] [place] [address] PSA Results Social History Tobacco [...] N ot on file 08/14/2020 Data from: https://www.neighborhoodatlas.medicine.[facility]/. Last address used for calculation Not on [...] 12:34 PM EDT Tobi, V kalpana L (Trim Technician), COST ESTIMATING ENGINEER * Are you blind or do you have serious difficulty seeing, even when wearing glasses? Answer Date of Assessment Author No 12/28/2014 12:34 PM EDT Tobi, V kalpana L (Trim Technician), COST ESTIMATING ENGINEER * Do you have serious difficulty walking or climbing stairs? Answer Date of Assessment Author No 12/28/2014 12:34 PM EDT Tobi, V kalpana L (Trim Technician), COST ESTIMATING ENGINEER * Do you have difficulty dressing or bathing? Answer Date of Assessment Author No 12/28/2014 12:34 PM EDT Tobi, V kalpana L (Trim Technician), COST ESTIMATING ENGINEER * Because of a physical, mental, or emotional condition, do you have difficulty doing errands alone such as visiting a doctor's office or shopping? Answer Date of Assessment Author No 12/28/2014 12:34 PM EDT Tobi, V kalpana L (Trim Technician), COST ESTIMATING ENGINEER documented as of this encounter Mental Status * Because of a physical, mental, or emotional condition, do you have serious difficulty concentrating, remembering, or making decisions? Answer Entry Date Author No 12/28/2014 12:34 PM EDT Tobi, V kalpana L (Trim Technician), COST ESTIMATING ENGINEER documented in this encounter Plan of Treatment Upcoming Encounters Date Type Department Care Team (Late st Contact Info) Description 06/03/2025 9:30 AM EDT Office Visit [facility] [address] [place] [address] [place] [address] lab 08/26/2025 1:00 PM EST Office Visit Cardiology [address] [facility] [address] [place], [place] [phone] Emanuel Whitten MD [address] [facility] [place] [place], [place] [phone] Return in about 7 months (around 08/26/2025). documented as of this encounter Visit Diagnoses Not on filedocumented in this encounter Care Teams Shank Stapler Relationship Specialty Start Date End Date Arden Sams PA-C PCP - General Internal Medicine 07/06/18 Mehnaz Lowry, CONG.MANAGER STRATEGIC DEVELOPMENT [address] [place] [address] Primary Staff Physician Nephrology 10/04/21 documented as of this encounter
--- OUTSIDE RECORDS SUMMARY | 2025-04-25 14:33 | XMS_ITS | Encounter Summary ---
Author Organization [facility] Address [address] [place] [address] Care Team Providers Care Art Sales Consultant Name Role Phone Arden Sams PA-C Primary Care Provider Mehnaz Lowry APRN.SAFETY COMPANION Unavailable [phone] Source Comments In the event this information is protected by the Federal Confidentiality of Alcohol and Drug AbusePatient Records regulations: The Federal rules restrict any use of the information to criminally investigate or prosecute any alcohol or drug abuse patient.[facility] Encounter Details Date Type Department Care Team (Late st Contact Info) Description 12/23/2023 Patient Msg Nuclear Medicine [address] [place], [place] [phone] Provider, Ccf Instructions for [place] Stress testing [...] N ot on file 09/20/2022 Data from: https://www.neighborhoodatlas.[facility]/. Last address used for calculation [address] [...] PM EDT Tobi, V kalpana L (Supervisor Speech), LOOM CHECKER * Are you blind or do you have serious difficulty seeing, even when wearing glasses? Answer Date of Assessment Author No 12/28/2014 12:34 PM EDT Tobi, V kalpana L (Supervisor Speech), LOOM CHECKER * Do you have serious difficulty walking or climbing stairs? Answer Date of Assessment Author No 12/28/2014 12:34 PM EDT Tobi, V kalpana L (Supervisor Speech), LOOM CHECKER * Do you have difficulty dressing or bathing? Answer Date of Assessment Author No 12/28/2014 12:34 PM EDT Tobi, V kalpana L (Supervisor Speech), LOOM CHECKER * Because of a physical, mental, or emotional condition, do you have difficulty doing errands alone such as visiting a doctor's office or shopping? Answer Date of Assessment Author No 12/28/2014 12:34 PM EDT Tobi, V kalpana L (Supervisor Speech), LOOM CHECKER documented as of this encounter Mental Status * Because of a physical, mental, or emotional condition, do you have serious difficulty concentrating, remembering, or making decisions? Answer Entry Date Author No 12/28/2014 12:34 PM EDT Tobi, V kalpana L (Supervisor Speech), LOOM CHECKER documented in this encounter Plan of Treatment Upcoming Encounters Date Type Department Care Team (Late st Contact Info) Description 06/03/2025 9:30 AM EDT Office Visit [facility] [address] [place] [address] [place] [address] lab 08/26/2025 1:00 PM EST Office Visit Cardiology [address] [facility] [place] [address] Emanuel Whitten MD [address] [place], [place] [phone] Return in about 7 months (around 08/26/2025). documented as of this encounter Visit Diagnoses Not on filedocumented in this encounter Care Teams Art Sales Consultant Relationship Specialty Start Date End Date Arden Sams PA-C PCP - General Internal Medicine 07/06/18 Mehnaz Lowry APRN.SAFETY COMPANION [address] [place] [address] Primary Staff Physician Nephrology 10/04/21 documented as of this encounter
--- OUTSIDE RECORDS SUMMARY | 2025-04-25 14:33 | XMS_ITS | Encounter Summary ---
Author Organization [facility] Address [address] [place] [address] Care Team Providers Care Cremator Name Role Phone Sukhwinder Gill Primary Care Provider U Brendan Scott NP Primary Care Provider [phone] Arden Sams PA-C Primary Care Provider Mehnaz Lowry APRN.PICKER MACHINE OPERATOR Unavailable [phone] Source Comments In the event this information is protected by the Federal Confidentiality of Alcohol and Drug AbusePatient Records regulations: The Federal rules restrict any use of the information to criminally investigate or prosecute any alcohol or drug abuse patient.[facility] Encounter Details Date Type Department Care Team (Late st Contact Info) Description 05/05/2014 Patient Msg Medical Records [address] [place] [address] Provider, Ccf RE: Appointment Cancellation Request Social [...] Description 06/03/2025 9:30 AM EDT Office Visit [facility] [address] [place] [address] [place] [address] lab 08/26/2025 1:00 PM EST Office Visit Cardiology [address] [place] [address] Emanuel Whitten MD [address] [facility] [address] Return in about 7 months (around 08/26/2025). documented as of this encounter Visit Diagnoses Not on filedocumented in this encounter Care Teams Cremator Relationship Specialty Start Date End Date Sukhwinder Gill PCP - General 05/14/07 07/06/17 Brendan Rivas NP [address] [place] [address] PCP - General Family Medicine 07/07/17 07/05/18 Arden Sams PA-C [address] [place] [address] PCP - General Internal Medicine 07/06/18 Mehnaz Lowry APRN.PICKER MACHINE OPERATOR [address] [place] [address] Primary Staff Physician Nephrology 10/04/21 documented as of this encounter
--- NOTE | 2025-04-25 14:45 | ECG_ITS ---
[facility] Date: 2025-04-25 Pat Name: LINK BARNETT Department: Room: - Gender: Male Cushion Builder: : 1955 Requested By: [id number] Order Number: [id number] Reading MD: SANTHOSH TOURE Measurements Intervals [place] Rate: 67 P: -23 AR: 186 QRS: -61 QRSD: 116 T: 30 QT: 410 QTc: 425 Interpretive Statements 1100 Sinus rhythm with frequent ectopic premature complexes (Unreliable analysis due to noise) 2630 Left anterior fascicular block 3113 Cannot rule out anterior myocardial infarction, probably old 8102 Low QRS voltage in chest leads 0104 ELECTRODE(S) DETACHED ... Repeat ECG is requested 9150 abnormal ECG Compared to ECG 03/11/2024 08:22:34 Myocardial infarct finding now present Atrial fibrillation no longer present Electronically Signed On 04-26-2025 11:08:54 EDT by SANTHOSH TOURE
--- NOTE | 2025-04-25 14:57 | ED.GENADUL1 ---
HPI HPI - General Adult General Chief complaint: Weakness Stated complaint: GENERAL WEAKNESS DEHYDRATION Time Seen by Provider: 04/25/25 14:33 Source: patient Mode of arrival: walk-in Limitations: no limitations History of Present Illness HPI narrative: Patient is a 69-year-old male who presents to the emergency department with complaints of a week of muscle soreness, loss of appetite, and within the last few days a headache. He thinks he may be dehydrated as he normally gets a headache when this happens. He states he has drink 60 ounces of water today already and that is his normal amount. He does have a history of atrial fibrillation and does take Xarelto as well as kidney transplant x 2. He denies any changes to his medications recently or starting a new medication. He has been taking an OTC probiotic recently. He denies any fever, night sweats, chills, unintentional weight loss, chest pain, shortness of breath, cough, nasal congestion, nausea/vomiting/diarrhea, and abdominal pain. He states that if his muscles are sore his massage appointments usually help this, but he had one after the soreness started last week and it has persisted. Related Data Home Medications ?Medication ?Instructions ?Recorded ?Confirmed mycophenolate mofetil 250 mg 500 mg PO Q12H 07/10/23 04/25/25 capsule prednisone 5 mg tablet 5 mg PO DAILY 07/10/23 04/25/25 tacrolimus 1 mg capsule, 1 mg PO Q12H 07/10/23 04/25/25 immediate-release gabapentin 300 mg capsule 300 mg PO DAILY 03/11/24 04/25/25 hydroxyzine HCl 25 mg tablet 25 mg PO DAILY PRN anxiety 03/11/24 04/25/25 metoprolol tartrate 25 mg tablet 37.5 mg PO Q12H 03/11/24 04/25/25 rivaroxaban 20 mg tablet (Xarelto) 20 mg PO DAILY@1700 04/25/25 04/25/25 Allergies Allergy/AdvReac Type Severity Reaction Status Date / Time No Known Drug Allergies Allergy Verified 04/25/25 14:31 Opioid HPI Opioid Management Most Recent Opioid Data: Last Pain Scale 6 02/27/25, 12:30 Last ED Pain Assessment Today, 14:42 Ur Phencyclidine Scrn, (NEGATIVE) Negative 09/19/23, 09:46 Review of Systems ROS Status of ROS 10 or more systems reviewed and unremarkable except as noted in history and below [facility] Social History Smoking status: Never smoker Little interest or pleasure in doing things: not at all Feeling down, depressed, or hopeless: not at all Exam Narrative Exam Narrative: General: No distress, age-appropriate Skin: Warm, dry, no pallor. No rash. Head: Normocephalic, atraumatic. Neck: Supple, non-tender. Eye: Pupils are equal, round and EOMI. No scleral icterus. Ears, Nose, Mouth, and Throat: No nasal mucosal hypertrophy. Oral mucosa is moist, no posterior oropharynx erythema, uvula is mid-line Cardiovascular: Regular Rate and Rhythm without murmur, gallop or rub. No pedal edema Respiratory: No accessory muscle use or respiratory distress. Lungs are clear to auscultation, no wheezing, rales or rhonchi Chest Wall: no tenderness Back: No midline thoracic or lumbar vertebral tenderness. Musculoskeletal: Full ROM of all extremities, no calf or popliteal tenderness GI: Abdomen is soft, non-distended, non tender to palpation. No masses appreciated. No rebound, guarding, or rigidity noted. Surgical well-healed scars. No surrounding erythema. Neurological: A&O x4. No cranial nerve dysfunction observed. No truncal ataxia. Moves all extremities. Sensation intact. Psychiatric: Cooperative and interactive. Normal mood and affect. Constitutional Vital Signs, click to edit/add: Last Vital Signs Temp 98.3 F 04/25/25 17:57 Pulse 68 04/25/25 17:57 Resp 20 04/25/25 17:57 BP 148/83 H 04/25/25 17:57 Pulse Ox 97 04/25/25 17:57 O2 Del Method Room Air 04/25/25 17:57 Course Vital Signs Vital signs: Vital Signs Temperature 98.4 F 04/25/25 14:31 Pulse Rate 78 04/25/25 14:31 Respiratory Rate 20 04/25/25 14:31 Blood Pressure 132/89 04/25/25 14:31 Pulse Oximetry 99 04/25/25 14:31 Oxygen Delivery Method Room Air 04/25/25 14:31 Temperature 98.3 F 04/25/25 17:57 Pulse Rate 68 04/25/25 17:57 Respiratory Rate 20 04/25/25 17:57 Blood Pressure 148/83 H 04/25/25 17:57 Pulse Oximetry 97 04/25/25 17:57 Oxygen Delivery Method Room Air 04/25/25 17:57 Medical Decision Making MDM Narrative Medical decision making narrative: 69-year-old male MH of bilateral kidney transplant, A-fib on Xarelto presented to the emergency department with complaints of generalized muscle soreness for about a week and headache that started today. He thinks he may have been taking too much vitamin D as he was taking a vitamin D supplement and also got a new probiotic that also had vitamin D in it. He did get a massage after the soreness started that did not help and this has persisted. He did finally stop taking the probiotic a day or so ago. Vitals stable on arrival. Blood pressure 148/83. CBC, BMP, LFTs, CRP are unremarkable. UA with trace ketones, otherwise unremarkable. COVID?19, influenza A/B. Patient updated with lab results, questions answered. Patient feeling better after 1 L NS and states that REYES is improved. I recommended that patient discontinue use of the probiotic until he follows up with his primary care physician. He does have a horse breaker appointment in August. We discussed that if the symptoms persist despite his discontinuing the new probiotic he started he should work with his primary care physician to get further testing done and move up his horse breaker appointment. Patient voiced understanding and will be discharged from the emergency department in good condition Differential Diagnosis Differential Diagnosis: Cardiac arrhythmia, Transplant failure, Viral syndrome Lab Data Labs: Lab Results 04/25/25 04/25/25 04/25/25 Range/Units 15:03 15:20 15:45 WBC 7.0 (4.0-11.0) 10^3/uL RBC 4.37 L (4.70-6.10) 10^6/uL Hgb 14.2 (14.0-18.0) g/dL Hct 41.3 L (42.0-54.0) % MCV 94.5 H (80.0-94.0) fL MCH 32.5 (25.9-34.0) pg MCHC 34.4 (29.9-35.2) g/dL RDW 12.7 (11.0-15.0) % Plt Count 160 (150-450) 10^3/uL MPV 9.2 L (9.5-13.5) fL Neut % (Auto) 59.6 (43.0-75.0) % Lymph % (Auto) 29.5 (20.5-60.0) % [place] % (Auto) 8.5 (1.7-12.0) % Eos % (Auto) 1.4 (0.9-7.0) % Baso % (Auto) 0.7 (0.2-2.0) % Neut # (Auto) 4.2 (1.4-6.5) 10^3/uL Lymph # (Auto) 2.1 (1.2-3.8) 10^3/uL [place] # (Auto) 0.6 (0.3-0.8) 10^3/uL Eos # (Auto) 0.1 (0.0-0.7) 10^3/uL Baso # (Auto) 0.1 (0.0-0.1) 10^3/uL Abs Immat Gran (auto) 0.02 (0.00-0.03) 10^3/uL Imm/Tot Granulo (auto) 0.3 (0.0-0.5) % Sodium 142 (136-145) mmol/L Potassium 4.4 (3.5-5.1) mmol/L Chloride 109 H (98-107) mmol/L Carbon Dioxide 28.4 (21.0-32.0) mmol/L Anion Gap 9.0 BUN 16.0 (7.0-18.0) mg/dL Creatinine 1.20 (0.70-1.30) mg/dL Est GFR ( Amer) >60 (>=60 mL/min/1.73m^2) Est GFR (Non-Af Amer) >60 (>=60 mL/min/1.73m^2) BUN/Creatinine Ratio 13.3 Glucose 143 H (74-106) mg/dL Lactate 1.7 (0.4-2.0) mmol/L Calcium 9.6 (8.5-10.1) mg/dL Total Bilirubin 1.2 H (0.2-1.0) mg/dL Direct Bilirubin 0.2 (0.0-0.2) mg/dL AST 11 L (15-37) U/L ALT 15 L (16-63) U/L Alkaline Phosphatase 68 (46-116) U/L C-Reactive Protein 0.60 H (<=0.50) mg/dL Total Protein 6.4 (6.4-8.2) g/dL Albumin 3.4 (3.4-5.0) g/dL Globulin 3.0 g/dL Albumin/Globulin Ratio 1.1 Urine Color Yellow (YELLOW) Urine Clarity Clear (CLEAR) Urine pH 6.0 (5.0-9.0) Ur Specific [place] 1.020 (1.005-1.025) Urine Protein Negative (NEG/TRACE) mg/dL Urine Glucose (UA) Negative (NEGATIVE) mg/dL Urine Ketones Trace A (NEGATIVE) mg/dL Urine Occult Blood Negative (NEGATIVE) Urine Nitrite Negative (NEGATIVE) Urine Bilirubin Negative (NEGATIVE) Urine Urobilinogen 1.0 (0.2-1.0) EU/dL Ur Leukocyte Esterase Negative (NEGATIVE) Influenza Type A Ag Negative Influenza Type B Ag Negative SARS-CoV-2 Ag (CV2AG) Negative (NEGATIVE) ECG Data Attestation: ?I have reviewed the pertinent ECG results. Discharge Plan Discharge Chief Complaint: Weakness Clinical Impression: Generalized muscle ache Patient Disposition: Home, Self-Care Time of Disposition Decision: 17:27 Condition: Good Mode of Transportation: Private Vehicle Prescriptions / Home Meds: No Action gabapentin 300 mg capsule 300 mg PO DAILY hydroxyzine HCl 25 mg tablet 25 mg PO DAILY PRN (Reason: anxiety) metoprolol tartrate 25 mg tablet 37.5 mg PO Q12H Xarelto 20 mg tablet 20 mg PO DAILY@1700 tacrolimus 1 mg capsule 1 mg PO Q12H mycophenolate mofetil 250 mg capsule 500 mg PO Q12H prednisone 5 mg tablet 5 mg PO DAILY Print Language: [place] Instructions: Musculoskeletal Pain (ED) Additional Instructions: Follow-up with your primary care provider this week. Return to the emergency department for any persistent, new, or worsening symptoms. Referrals: [facility] [Primary Care Provider] - 1 week Discharge Date/Time: 04/25/25 17:59
[2025-04-25 15:11] LABS: Hematocrit 41.3 % (42.0-54.0); Hemoglobin 14.2 g/dL (14.0-18.0); Immature Granulocytes Abs Auto 0.02 10^3/uL (0.00-0.03); Immature Granulocytes Pct Auto 0.3 % (0.0-0.5); Lymphocytes Absolute Auto 2.1 10^3/uL (1.2-3.8); Mean Corpuscular HGB Conc 34.4 g/dL (29.9-35.2); Mean Corpuscular Hemoglobin 32.5 pg (25.9-34.0); Mean Corpuscular Volume 94.5 fL (80.0-94.0); Platelet Count 160 10^3/uL (150-450); Red Blood Count 4.37 10^6/uL (4.70-6.10); White Blood Count 7.0 10^3/uL (4.0-11.0)
[2025-04-25] MEDS: 0.9 % SODIUM CHLORIDE 1,000 ML 1000 ML IV (15:14)
[2025-04-25 15:25] VITALS: PULSE 64
[2025-04-25 15:35] LABS: Anion Gap 9.0; Blood Urea Nitrogen 16.0 mg/dL (7.0-18.0); Calcium 9.6 mg/dL (8.5-10.1); Carbon Dioxide 28.4 mmol/L (21.0-32.0); Chloride 109 mmol/L (98-107); Estimated GFR (African America >60 (>=60 mL/min/1.73m^2); Estimated GFR (Non-African Ame >60 (>=60 mL/min/1.73m^2); Glucose 143 mg/dL (74-106); Potassium 4.4 mmol/L (3.5-5.1); Sodium 142 mmol/L (136-145)
[2025-04-25 15:37] LABS: Alanine Aminotransferase 15 U/L (16-63); Albumin Globulin Ratio 1.1; Albumin Level 3.4 g/dL (3.4-5.0); Alkaline Phosphatase 68 U/L (46-116); Aspartate Amino Transferase 11 U/L (15-37); Globulin 3.0 g/dL; Total Protein 6.4 g/dL (6.4-8.2)
[2025-04-25 15:40] LABS: SARS-CoV-2 Ag NEGATIVE (NEGATIVE)
--- OUTSIDE RECORDS SUMMARY | 2025-04-25 15:48 | XMS_ITS | CCD ---
Author Organization [facility] Care Team Providers Care South Asian History Professor Name Role Phone Kathleen Sams PA-C Primary Care Provider Lard RESTAURANT HOURLY TEAM MEMBER.Usman ESTRADA Unavailable LANCE GLASGOW Admitting Unavailable [facility] Unava ilable LANCE GLASGOW Attending Unavailable LANCE GLASGOW Consulting Unavailable CHRISSY BABIN Admitting Unavailable DR MUSTAPHA BAUGH V Consulting Unavailable [facility] Unava ilCHRISSY Valencia Attending Unavailable CHRISSY BABIN Consulting Unavailable CHRISSY BABIN Attending Unavailable DR Jan Carnes Consulting Unavailable [facility] Unava ilable TALYA PETER Shaunna Admitting Unavailable CHRISSY BABIN Consulting Unavailable Kathleen Sams PA-C Primary Care Provider Lard RESTAURANT HOURLY TEAM MEMBER.Usman ESTRADA Unavailable Kathleen Sams PA-C Primary Care Provider Lard RESTAURANT HOURLY TEAM MEMBER.Usman ESTRADA Unavailable Lard RESTAURANT HOURLY TEAM MEMBER.Usman ESTRADA Unavailable Kathleen Sams PA-C Primary Care Provider KATHLEEN SAMS Primary Care Unavailable JULIO CÉSAROTOYE, WEI Admitting Unavailable BEV, WEI Attending Unavailable KATHLEEN SAMS Primary Care Unavailable OMOTOYE, WEI Admitting Unavailable OMOTOYE, WEI Attending Unavailable Kathleen Sams PA-C Primary Care Provider USMAN LOWRY Referring Unavailable KATHLEEN SAMS Primary Care Unavailable TYLER, SUROVI Attending Unavailable KATHLEEN SAMS Primary Care Unavailable HAZMICHELLE, AMYOVI Attending Unavailable TYLER, SUROVI Referring Unavailable KATHLEEN SAMS Primary Care Unavailable WEI PABLO Referring Unavaila ble KATHLEEN SAMS Primary Care Unavailable GANESH, MELISA Attending Unavailable KATHLEEN SAMS Primary Care Unavailable LARD, USMAN L Referring Unavailable KATHLEEN SAMS Primary Care Unavailable LARD, USMAN L Referring Unavailable KATHLEEN SAMS Primary Care Unavailable HAZARIKA, SUROVI Referring Unavailable KATHLEEN SAMS Primary Care Unavailable LARD, USMAN L Referring Unavailable KATHLEEN SAMS Primary Care Unavailable LARD, USMAN L Referring Unavailable KATHLEEN SAMS Primary Care Unavailable JULIO CÉSAROTOTINA, WEI CISNEROS Attending Unavaila ble KATHLEEN SAMS Primary Care Unavailable BRICEÑO, MELISA Attending Unavailable KATHLEEN SAMS Primary Care Unavailable FATICA, NHI Attending Unavailable KATHLEEN SAMS Primary Care Unavailable LARD, USMAN L Referring Unavailable KATHLEEN SAMS Primary Care Unavailable HAZARIKA, SUROVI Attending Unavailable KATHLEEN SAMS Primary Care Unavailable Medications [...] tablet (20 sources) beta-Adrenergic Uriel Start: 01-25-20 take 2 tablets by mouth every twelve [...] sources) Factor Xa Inhibitor Start: 03-06-2024 End: 03-30-2025 take 1 tablet by mouth once daily at dinner rivaroxaban (XARELTO) 20 mg tablet Take 1 tablet by mouth daily with dinner. 90 tablet 3 03/30/2025 Active Start: 09-30-2023 take 1 tablet by [...] by Patient) take 1 tablet by jennifer once daily as needed hydrOXYzine HCl (ATARAX) 25 mg tablet Ta ke 25 mg by mouth once daily as needed. Active Comment on above: Take 25 mg by mouth every 8 hours as needed. 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; Translations: [HALFWAY CURRENT USE OF ASPIRIN] Onset: 04-22-2022 Episodic Other aftercare (1 source) Other shelter (current) drug therapy; Translations: [OTH UROLOGY PHYSICIAN ASSISTANT CURRENT DRUG THERAPY] Onset: 04-22-2022 Episodic Other aftercare (2 sources) Long-term current use of anticoagulant; Translations: [terminal block assembler (current) use of anticoagulants] 03-18-2024 Episodic Other [...] disorders (1 source) Hypomagnesemia; Translations: [Hypomagnesemia] Onset: 03-04-2025 Chronic Other screening for suspected conditions (not mental disorders or infectious disease) (16 sources) Raised prostate specific antigen; Translations: [Elevated prostate specific antigen [PSA]] Onset: 03-04-2025 Episodic Melia-; endo-; and myocarditis; cardiomyopathy (except that caused by tuberculosis or sexually transmitted disease) (20 sources) Cardiomyopathy; Translations: [Cardiomyopathy, unspecified] Onset: 11-10-2023 11-10-2023 Chronic Unclassified (1 source) Aneurysm of ascending aorta [...] immunization] Onset: 07-06-2024 07-06-2024 Episodic Other aftercare (17 sources) Drug therapy finding; Translations: [senior living (current) use of anticoagulants] Onset: 07-27-2024 07-27-2024 Episodic Other circulatory disease (1 source) Personal history of other diseases of the circulatory system; Translations: [S/P ablation of atrial fibrillation] Onset: 09-10-2024 Episodic Residual codes; unclassified (20 sources) Prevention status; Translations: [Encounter for other specified prophylactic measures] Onset: 05-08-2009 05-08-2009 Episodic Residual codes; unclassified (20 sources) H/O: atrial fibrillation; Translations: [Other specified postprocedural states] Onset: 03-06-2024 03-12-2024 Episodic Residual codes; unclassified (1 source) Other specified postprocedural states; Translations: [S/P ablation of atrial fibrillation] Onset: 09-10-2024 Episodic Results Test Name Value Interpretation Reference Range Facility CBC W Auto Differential pane l (Bld)on 03-04-2025 Basophils (Bld) [#/Vol] 0.04 10*3/uL Normal <0.11 [facility] Comment on above: Order Comment: Speci men Type: BLOOD SPECIMENOrdering Facility: [facility] Address: [address] [place] [address] Performed By: #### 5 7021-8 ####[facility] LABCLIA [id number] [place] [address] Basophils/100 WBC (Bld) 0.7 % Normal [facility] Comment on above: Order Comment: Speci men Type: BLOOD SPECIMENOrdering Facility: [facility] Address: [address] [place] [address] Performed By: #### 5 7021-8 ####[facility] LABCLIA [id number] [place] [address] Differential cell count method Nom (Bld) Auto Normal [facility] Comment on above: Order Comment: Speci men Type: BLOOD SPECIMENOrdering Facility: [facility] Address: [address] [place] [address] Performed By: #### 5 7021-8 ####[facility] LABCLIA [id number] [place] [address] Eosinophils (Bld) [#/Vol] 0.14 10*3/uL Normal <0.46 [facility] Comment on above: Order Comment: Speci men Type: BLOOD SPECIMENOrdering Facility: [facility] Address: [address] [place] [address] Performed By: #### 5 7021-8 ####[facility] LABCLIA [id number] [place] [address] Eosinophils/100 WBC (Bld) 2.3 % Normal [facility] Comment on above: Order Comment: Speci men Type: BLOOD SPECIMENOrdering Facility: [facility] Address: [address] [place] [address] Performed By: #### 5 7021-8 ####[facility] LABCLIA [id number] [place] [address] Erythrocyte distribution width (RBC) [Ratio] 12.8 % Normal 11.5-15.0 [facility] Comment on above: Order Comment: Speci men Type: BLOOD SPECIMENOrdering Facility: [facility] Address: [address] [place] [address] Performed By: #### 5 7021-8 ####[facility] LABCLIA [id number] [place] [address] Hematocrit (Bld) [Volume fraction] 41.5 % Normal 39.0-51.0 [facility] Comment on above: Order Comment: Speci men Type: BLOOD SPECIMENOrdering Facility: [facility] Address: [address] [place] [address] Performed By: #### 5 7021-8 ####[facility] LABCLIA [id number] [place] [address] Hemoglobin (Bld) [Mass/Vol] 14.5 g/dL Normal 13.0-17.0 [facility] Comment on above: Order Comment: Speci men Type: BLOOD SPECIMENOrdering Facility: [facility] Address: [address] [place] [address] Performed By: #### 5 7021-8 ####[facility] LABCLIA [id number] [place] [address] Immature granulocytes (Bld) [#/Vol] 0.03 10*3/uL Normal <0.10 [facility] Comment on above: Order Comment: Speci men Type: BLOOD SPECIMENOrdering Facility: [facility] Address: [address] [place] [address] Performed By: #### 5 7021-8 ####[facility] LABCLIA [id number] [place] [address] Immature granulocytes/100 WBC (Bld) 0.5 % Normal [facility] Comment on above: Order Comment: Speci men Type: BLOOD SPECIMENOrdering Facility: [facility] Address: [address] [place] [address] Performed By: #### 5 7021-8 ####[facility] LABCLIA [id number] [place] [address] Lymphocytes (Bld) [#/Vol] 2.13 10*3/uL Normal 1.00-4.00 [facility] Comment on above: Order Comment: Speci men Type: BLOOD SPECIMENOrdering Facility: [facility] Address: [address] [place] [address] Performed By: #### 5 7021-8 ####[facility] LABCLIA [id number] [place] [address] Lymphocytes/100 WBC (Bld) 35.4 % Normal [facility] Comment on above: Order Comment: Speci men Type: BLOOD SPECIMENOrdering Facility: [facility] Address: [address] [place] [address] Performed By: #### 5 7021-8 ####[facility] LABCLIA [id number] [place] [address] MCH (RBC) [Entitic mass] 32.3 pg Normal 26.0-34.0 [facility] Comment on above: Order Comment: Speci men Type: BLOOD SPECIMENOrdering Facility: [facility] Address: [address] [place] [address] Performed By: #### 5 7021-8 ####[facility] LABCLIA [id number] [place] [address] MCHC (RBC) [Mass/Vol] 34.9 g/dL Normal 30.5-36.0 [facility] Comment on above: Order Comment: Speci men Type: BLOOD SPECIMENOrdering Facility: [facility] Address: [address] [place] [address] Performed By: #### 5 7021-8 ####[facility] LABCLIA [id number] [place] [address] MCV (RBC) [Entitic vol] 92.4 fL Normal 80.0-100.0 [facility] Comment on above: Order Comment: Speci men Type: BLOOD SPECIMENOrdering Facility: [facility] Address: [address] [place] [address] Performed By: #### 5 7021-8 ####[facility] LABCLIA [id number] [place] [address] Monocytes (Bld) [#/Vol] 0.49 10*3/uL Normal <0.87 [facility] Comment on above: Order Comment: Speci men Type: BLOOD SPECIMENOrdering Facility: [facility] Address: [address] [place] [address] Performed By: #### 5 7021-8 ####[facility] LABCLIA [id number] [place] [address] Monocytes/100 WBC (Bld) 8.2 % Normal [facility] Comment on above: Order Comment: Speci men Type: BLOOD SPECIMENOrdering Facility: [facility] Address: [address] [place] [address] Performed By: #### 5 7021-8 ####[facility] LABCLIA [id number] [place] [address] Neutrophils (Bld) [#/Vol] 3.18 10*3/uL Normal 1.45-7.50 [facility] Comment on above: Order Comment: Speci men Type: BLOOD SPECIMENOrdering Facility: [facility] Address: [address] [place] [address] Performed By: #### 5 7021-8 ####[facility] LABCLIA [id number] [place] [address] Neutrophils/100 WBC (Bld) 52.9 % Normal [facility] Comment on above: Order Comment: Speci men Type: BLOOD SPECIMENOrdering Facility: [facility] Address: [address] [place] [address] Performed By: #### 5 7021-8 ####[facility] LABCLIA [id number] [place] [address] Nucleated RBC (Bld) [#/Vol] 10*3/uL Normal <0.01 [facility] Comment on above: Order Comment: Speci men Type: BLOOD SPECIMENOrdering Facility: [facility] Address: [address] [place] [address] Performed By: #### 5 7021-8 ####[facility] LABCLIA [id number] [place] [address] Nucleated RBC/100 WBC (Bld) [Ratio] 0.0 /100 WBC Normal [facility] Comment on above: Order Comment: Speci men Type: BLOOD SPECIMENOrdering Facility: [facility] Address: [address] [place] [address] Performed By: #### 5 7021-8 ####[facility] LABCLIA [id number] [place] [address] Platelet mean volume (Bld) [Entitic vol] 9.2 fL Normal 9.0-12.7 [facility] Comment on above: Order Comment: Speci men Type: BLOOD SPECIMENOrdering Facility: [facility] Address: [address] [place] [address] Performed By: #### 5 7021-8 ####[facility] LABCLIA [id number] [place] [address] Platelets (Bld) [#/Vol] 143 10*3/uL Low 150-400 [facility] Comment on above: Order Comment: Speci men Type: BLOOD SPECIMENOrdering Facility: [facility] Address: [address] [place] [address] Performed By: #### 5 7021-8 ####[facility] LABCLIA [id number] [place] [address] RBC (Bld) [#/Vol] 4.49 10*6/uL Normal 4.20-6.00 [facility] Comment on above: Order Comment: Speci men Type: BLOOD SPECIMENOrdering Facility: [facility] Address: [address] [place] [address] Performed By: #### 5 7021-8 ####[facility] LABCLIA [id number] [place] [address] WBC (Bld) [#/Vol] 6.01 10*3/uL Normal 3.70-11.00 [facility] Comment on above: Order Comment: Speci men Type: BLOOD SPECIMENOrdering Facility: [facility] Address: [address] [place] [address] Performed By: #### 5 7021-8 ####[facility] LABCLIA [id number] [place] [address] Comprehensive metabolic 2000 panelon 03-04-2025 Albumin [Mass/Vol] 3.9 g/dL Normal 3.9-4.9 [facility] Comment on above: Order Comment: Speci men Type: BLOOD SPECIMENOrdering Facility: [facility] Address: [address] [place] [address] Performed By: #### 2 4323-8, , 2776-09 ####[facility] LABIA [id number] [place] [address] ALP [Catalytic activity/Vol] 58 U/L Normal 38-113 [facility] Comment on above: Order Comment: Speci men Type: BLOOD SPECIMENOrdering Facility: [facility] Address: [address] [place] [address] Performed By: #### 2 4323-8, , 2776-09 ####[facility] LABCLIA [id number] [place] [address] ALT [Catalytic activity/Vol] 11 U/L Normal 10-54 [facility] Comment on above: Order Comment: Speci men Type: BLOOD SPECIMENOrdering Facility: [facility] Address: [address] [place] [address] Performed By: #### 2 4323-8, , 2776-09 ####[facility] LABCLIA [id number] [place] [address] Anion gap [Moles/Vol] 11 mmol/L Normal 8-15 [facility] Comment on above: Order Comment: Speci men Type: BLOOD SPECIMENOrdering Facility: [facility] Address: [address] [place] [address] Performed By: #### 2 4323-8, , 2776-09 ####[facility] LABCLIA [id number] [place] [address] AST [Catalytic activity/Vol] 15 U/L Normal 14-40 [facility] Comment on above: Order Comment: Speci men Type: BLOOD SPECIMENOrdering Facility: [facility] Address: [address] [place], [place] [address] Performed By: #### 2 4323-8, , 2776-09 ####[facility] LABIA [id number] [place] [address] Bilirubin [Mass/Vol] 1.2 mg/dL Normal 0.2-1.3 [facility] Comment on above: Order Comment: Speci men Type: BLOOD SPECIMENOrdering Facility: [facility] Address: [address] [place], [place] [address] Performed By: #### 2 4323-8, , 2776-09 ####[facility] LABIA [id number] [place] [address] Calcium [Mass/Vol] 9.8 mg/dL Normal 8.5-10.2 [facility] Comment on above: Order Comment: Speci men Type: BLOOD SPECIMENOrdering Facility: [facility] Address: [address] [place] [address] Performed By: #### 2 4323-8, , 2776-09 ####[facility] LABIA [id number] [place] [address] Chloride [Moles/Vol] 105 mmol/L Normal 98-107 [facility] Comment on above: Order Comment: Speci men Type: BLOOD SPECIMENOrdering Facility: [facility] Address: [address] [place] [address] Performed By: #### 2 4323-8, , 2776-09 ####[facility] LABCLIA [id number] [place] [address] CO2 [Moles/Vol] 24 mmol/L Normal 22-30 [facility] Comment on above: Order Comment: Speci men Type: BLOOD SPECIMENOrdering Facility: [facility] Address: [address] [place] [address] Performed By: #### 2 4323-8, , 2776-09 ####[facility] LABCLIA [id number] [place] [address] Creatinine [Mass/Vol] 1.17 mg/dL Normal 0.73-1.22 [facility] Comment on above: Order Comment: Speci men Type: BLOOD SPECIMENOrdering Facility: [facility] Address: [address] [place] [address] Performed By: #### 2 4323-8, , 2776-09 ####[facility] LABIA [id number] [place] [address] Creatinine and Glomerular filtration rate.predicted panel (S/P/Bld) 68 mL/min/1.73m??? Normal >=60 [facility] Comment on above: Order Comment: Speci men Type: BLOOD SPECIMENOrdering Facility: [facility] Address: [address] [place] [address] Result Comment: Katalina mated Glomerular Filtration Rate [...] Performed By: #### 2 4323-8, , 2776-09 ####[facility] LABCLIA [id number] [place] [address] Glucose [Mass/Vol] 125 mg/dL High 74-99 [facility] Comment on above: Order Comment: Speci jacki Type: BLOOD SPECIMENOrdering Facility: [facility] Address: [address] [place], [place] [address] Result Comment: The [place] Diabetes Association (ADA) provides guidance for cutoff [...] Standards of Medical Care in Diabetes 2016, [place] [employer]. Diabetes Care. 2016.39(Suppl 1). Performed By: #### 2 4323-8, , 2776-09 ####[facility] LABCLIA [id number] [place] [address] Potassium [Moles/Vol] 4.1 mmol/L Normal 3.7-5.1 [facility] Comment on above: Order Comment: Anitra echeverria Type: BLOOD SPECIMENOrdering Facility: [facility] Address: [address] [place] [address] Performed By: #### 2 4323-8, , 2776-09 ####[facility] LABCLIA [id number] [place] [address] Protein [Mass/Vol] 6.1 g/dL Low 6.3-8.0 [facility] Comment on above: Order Comment: Anitra echeverria Type: BLOOD SPECIMENOrdering Facility: [facility] Address: [address] [place] [address] Performed By: #### 2 4323-8, , 2776-09 ####[facility] LABCLIA [id number] [place] [address] Sodium [Moles/Vol] 140 mmol/L Normal 136-144 [facility] Comment on above: Order Comment: Speci men Type: BLOOD SPECIMENOrdering Facility: [facility] Address: [address] [place], [place] [address] Performed By: #### 2 4323-8, 70944-4, 2776- ####[facility] LABCLIA [id number] [place] [address] Urea nitrogen [Mass/Vol] 16 mg/dL Normal 9-24 [facility] Comment on above: Order Comment: Speci men Type: BLOOD SPECIMENOrdering Facility: [facility] Address: [address] [place] [address] Performed By: #### 2 4323-8, , 2776-09 ####[facility] LABCLIA [id number] [place] [address] Magnesium SerPl-mCncon 03-04 Magnesium [Mass/Vol] 1.6 mg/dL Low 1.7-2.3 [facility] Comment on above: Order Comment: Speci men Type: BLOOD SPECIMENOrdering Facility: [facility] Address: [address] [place], [place] [address] Performed By: #### 2 4323-8, , 2776-09 ####[facility] LABCLIA [id number] [place] [address] PSA/PROSTATE SPECIFIC ANTIGE N SCREENINGon 03-04-2025 Prostate specific Ag [Mass/Vol] 4.01 ng/mL High <2.60 [facility] Comment on above: Order Comment: Speci men Type: BLOOD SPECIMEN [facility] Address: [address] [place] [address] Result Comment: Tota l PSA test methodology used is the Electrochemiluminescence Immunoassay by [employer]. Total PSA values by differing methodologies cannot [...] M.D., Ana Regalado, M.P.H., Carlie De Los Santos Sc.D. Effect of Verification Bias on Screening for Prostate Cancer by Measurement of Prostatic Specific Antigen. N Engl J Med 2003,349:335-42. Performed By: #### 1 9123-9, 22556-6, 2777-1 #### [facility] CLIA [id number] [place] [address] Phosphate SerPl-ncon 03-04 Phosphate [Mass/Vol] 2.9 mg/dL Normal 2.7-4.8 [facility] Comment on above: Order Comment: Speci men Type: BLOOD SPECIMENOrdering Facility: [facility] Address: [address] [place] [address] Performed By: #### 2 4323-8, 78046-5, 2777-1 ####[facility] LABCLIA [id number] [place] [address] Tacrolimus Bld-mCncon 2024 Tacrolimus (Bld) [Mass/Vol] 6.5 ng/mL Normal 5.0-20.0 [facility] Comment on above: Order Comment: Speci men Type: BLOOD SPECIMEN [facility] Address: [address] [place], [place] [address] Result Comment: Olivia vidualized target levels for [...] Gonzalez Alinity i. Performed By: #### 1 9123-9, 22968-1, 2777-1 #### [facility] CLIA [id number] [address] [place] [address] CNOVon 01-24-2025 CNOV Office Visit (CARDLO ) SILASLINK ([id number]) 1955 M Date Time Provider Department 01/24/25 3:00 PM EMANUEL SCOTT During your visit today, we recorded the following information about you: Pulse Blood pressure Weight 64/minute 116/76 168.1 kg Emanuel Scott MD 01/24/2025 3:26 PM Signed [facility] SECTION OF REGIONAL CARDIOLOGY OUTPATIENT VISIT DATE January 24, 2025 OUTPATIENT VISIT TYPE Established PRIMARY CARE PHYSICIAN: [place] [address] REFERRING PHYSICIAN: Usman Lowry [address] [facility] [address] C/C: Follow-up for atrial fibrillation Last and initial visit with mn Jul 2024 HISTORY OF PRESENT ILLNESS: Mr. Rosen is a 69 year old male, seen in clinic today for follow-up for atrial fibrillation CV history reviewed, summarized and updated: Initial visit with mn in Sep 2023-noted to be in Afib [...] Coronary atherosclerosis of unspecified type of vessel, [place] or graft Mild 3-vessel Coronary artery disease [...] mg by mouth once daily as needed. sulfamethoxazole-trimethopr im (BACTRIM) 400-80 mg per tablet Take 1 tablet by mouth every Friday, Friday, and Friday. predniSONE (DELTASONE) 5 mg tablet take 1 tablet by mouth once daily rivaroxaban (XARELTO) 20 mg tablet Take 1 tablet by mouth daily with dinner. gabapentin (NEURON (more content not included)... 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 [facility] ALYCE MCKEON During your visit today, we recorded the following information about you: Referring Provider: EMANUEL SCOTT [[id number]] Allergies As of Date: 01/24/2025 (No Known Allergies) Date Reviewed: 11/25/2024 Reviewed by: Amanda Ramirez MA - Fully Assessed Visit Diagnoses:Cardiomyopathy, unspecified type (HCC) [I42.9] Aneurysm of ascending aorta without rupture [I71.21] Order(s):ECHO [[id number]] Order #: [id number]: 1 [] perflutren lipid microspheres 1.3 mL in NaCl (PF) 0.9% 10 mL injection (DEFINITY)Disp: Rfl: Prescriptions as of 01/24/2025 - mycophenolate [...] by mouth once daily as needed. - sulfamethoxazole-trimethopr im (BACTRIM) 400-80 mg per tablet Take 1 [...] Status:Closed by HANNY MOULTON on 01/24/25 Normal [facility] ECHOon 01-24-2025 CONCLUSIONS: - Technically difficult [...] [facility] Echocardiography Report: Transthoracic Echo [facility] Date of service: 01/24/2025 1:39:57 PM TECHNICIAN Ordering physician: EMANUEL SCOTT Indication: CM Technologist: [...] no pericardial effusion. [facility] Echocardiography Echocardiography Rep ort: Transthoracic Echo [facility] Date of service: 01/24/2025 1:39:57 PM TECHNICIAN Ordering physician: EMANUEL SCOTT Indication: CM Technologist: [...] * * Final * * * CC Identified Medical Image : [id number] [id number] Normal [facility] CBC W Auto Differential pane l (Bld)on 11-30-2024 Basophils (Bld) [#/Vol] 0.04 10*3/uL Normal <0.11 [facility] Comment on above: Order Comment: Speci men Type: BLOOD SPECIMEN Ordering Facility: [facility] Address: [address] [place] [address] Performed By: #### 1 9123-9, 68551-0, 2777- #### [facility] CLIA [id number] [address] [place] [address] 76848 Basophils/100 WBC (Bld) 0.6 % Normal [facility] Comment on above: Order Comment: Speci men Type: BLOOD SPECIMEN Ordering Facility: [facility] Address: [address] [place] [address] Performed By: #### 1 9123-9, 57571-1, 2776- #### [facility] CLIA [id number] [address] [place] [address] 49718 Differential cell count method Nom (Bld) Auto Normal [facility] Comment on above: Order Comment: Speci men Type: BLOOD SPECIMEN Ordering Facility: [facility] Address: [address] [place] [address] Performed By: #### 1 9123-9, 62345-9, 2777- #### [facility] CLIA [id number] [address] [place] [address] 14778 Eosinophils (Bld) [#/Vol] 0.16 10*3/uL Normal <0.46 [facility] Comment on above: Order Comment: Speci men Type: BLOOD SPECIMEN Ordering Facility: [facility] Address: [address] [place] [address] Performed By: #### 1 9123-9, 88840-1, 2776- #### [facility] CLIA [id number] [address] [place] [address] 84205 Eosinophils/100 WBC (Bld) 2.4 % Normal [facility] Comment on above: Order Comment: Speci men Type: BLOOD SPECIMEN Ordering Facility: [facility] Address: [address] [place] [address] Performed By: #### 1 9123-9, 19029-8, 2776- #### [facility] CLIA [id number] [address] [place] [address] 42529 Erythrocyte distribution width (RBC) [Ratio] 12.7 % Normal 11.5-15.0 [facility] Comment on above: Order Comment: Speci men Type: BLOOD SPECIMEN Ordering Facility: [facility] Address: [address] [place] [address] Performed By: #### 1 9123-9, 76223-4, 2776-09 #### [facility] CLIA [id number] [address] [place] [address] 63703 Hematocrit (Bld) [Volume fraction] 44.3 % Normal 39.0-51.0 [facility] Comment on above: Order Comment: Speci men Type: BLOOD SPECIMEN Ordering Facility: [facility] Address: [address] [place] [address] Performed By: #### 1 9123-9, 48403-6, 2776-09 #### [facility] CLIA [id number] [address] [place] [address] 42516 Hemoglobin (Bld) [Mass/Vol] 15.1 g/dL Normal 13.0-17.0 [facility] Comment on above: Order Comment: Speci men Type: BLOOD SPECIMEN Ordering Facility: [facility] Address: [address] [place], [place] [address] Performed By: #### 1 9123-9, 66940-7, 2776-09 #### [facility] CLIA [id number] [address] [place] [address] 45456 Immature granulocytes (Bld) [#/Vol] 10*3/uL Normal <0.10 [facility] Comment on above: Order Comment: Speci men Type: BLOOD SPECIMEN Ordering Facility: [facility] Address: [address] [place] [address] Performed By: #### 1 9123-9, , 2776-09 #### [facility] CLIA [id number] [address] [place] [address] 46068 Immature granulocytes/100 WBC (Bld) 0.3 % Normal [facility] Comment on above: Order Comment: Speci men Type: BLOOD SPECIMEN Ordering Facility: [facility] Address: [address] [place] [address] Performed By: #### 1 91239, , 2776-09 #### [facility] CLIA [id number] [address] [place] [address] 34579 Lymphocytes (Bld) [#/Vol] 2.71 10*3/uL Normal 1.00-4.00 [facility] Comment on above: Order Comment: Speci men Type: BLOOD SPECIMEN Ordering Facility: [facility] Address: [address] [place] [address] Performed By: #### 1 91239, , 2776-09 #### [facility] CLIA [id number] [address] [place] [address] 55618 Lymphocytes/100 WBC (Bld) 40.2 % Normal [facility] Comment on above: Order Comment: Speci men Type: BLOOD SPECIMEN Ordering Facility: [facility] Address: [address] [place] [address] Performed By: #### 1 9123-9, , 2776-09 #### [facility] CLIA [id number] [address] [place] [address] 17139 MCH (RBC) [Entitic mass] 32.1 pg Normal 26.0-34.0 [facility] Comment on above: Order Comment: Speci men Type: BLOOD SPECIMEN Ordering Facility: [facility] Address: [address] [place] [address] Performed By: #### 1 9123-9, 36335-5, 2776- #### [facility] CLIA [id number] [address] [place] [address] 02072 MCHC (RBC) [Mass/Vol] 34.1 g/dL Normal 30.5-36.0 [facility] Comment on above: Order Comment: Speci men Type: BLOOD SPECIMEN Ordering Facility: [facility] Address: [address] [place] [address] Performed By: #### 1 9123-9, 78652-3, 2776-09 #### [facility] CLIA [id number] [address] [place] [address] 28895 MCV (RBC) [Entitic vol] 94.1 fL Normal 80.0-100.0 [facility] Comment on above: Order Comment: Speci men Type: BLOOD SPECIMEN Ordering Facility: [facility] Address: [address] [place] [address] Performed By: #### 1 9123-9, 64610-1, 2776-09 #### [facility] CLIA [id number] [address] [place] [address] 49674 Monocytes (Bld) [#/Vol] 0.54 10*3/uL Normal <0.87 [facility] Comment on above: Order Comment: Speci men Type: BLOOD SPECIMEN Ordering Facility: [facility] Address: [address] [place] [address] Performed By: #### 1 9123-9, 13688-7, 2776-09 #### [facility] CLIA [id number] [address] [place] [address] 94269 Monocytes/100 WBC (Bld) 8.0 % Normal [facility] Comment on above: Order Comment: Speci men Type: BLOOD SPECIMEN Ordering Facility: [facility] Address: [address] [place] [address] Performed By: #### 1 9123-9, 35191-1, 2776- #### [facility] CLIA [id number] [address] [place] [address] 83532 Neutrophils (Bld) [#/Vol] 3.27 10*3/uL Normal 1.45-7.50 [facility] Comment on above: Order Comment: Speci men Type: BLOOD SPECIMEN Ordering Facility: [facility] Address: [address] [place], [place] [address] Performed By: #### 1 9123-9, 33802-3, 2776- #### [facility] CLIA [id number] [address] [place] [address] 99906 Neutrophils/100 WBC (Bld) 48.5 % Normal [facility] Comment on above: Order Comment: Speci men Type: BLOOD SPECIMEN Ordering Facility: [facility] Address: [address] [place] [address] Performed By: #### 1 9123-9, 32563-9, 2776- #### [facility] CLIA [id number] [address] [place] [address] 09975 Nucleated RBC (Bld) [#/Vol] 10*3/uL Normal <0.01 [facility] Comment on above: Order Comment: Speci men Type: BLOOD SPECIMEN Ordering Facility: [facility] Address: [address] [place] [address] Performed By: #### 1 9123-9, 61527-7, 2776- #### [facility] CLIA [id number] [address] [place] [address] 40001 Nucleated RBC/100 WBC (Bld) [Ratio] 0.0 /100 WBC Normal [facility] Comment on above: Order Comment: Speci men Type: BLOOD SPECIMEN Ordering Facility: [facility] Address: [address] [place] [address] Performed By: #### 1 9123-9, 66619-5, 2776-09 #### [facility] CLIA [id number] [address] [place] [address] Platelet mean volume (Bld) [Entitic vol] 9.0 fL Normal 9.0-12.7 [facility] Comment on above: Order Comment: Speci men Type: BLOOD SPECIMEN Ordering Facility: [facility] Address: [address] [place] [address] Performed By: #### 1 9123-9, 45448-0, 2776- #### [facility] CLIA [id number] [address] [place] [address] Platelets (Bld) [#/Vol] 153 10*3/uL Normal 150-400 [facility] Comment on above: Order Comment: Speci men Type: BLOOD SPECIMEN Ordering Facility: [facility] Address: [address] [place] [address] Performed By: #### 1 9123-9, 66085-5, 2776- #### [facility] CLIA [id number] [address] [place] [address] 36421 RBC (Bld) [#/Vol] 4.71 10*6/uL Normal 4.20-6.00 [facility] Comment on above: Order Comment: Speci men Type: BLOOD SPECIMEN Ordering Facility: [facility] Address: [address] [place] [address] Performed By: #### 1 9123-9, 68784-6, 2776-09 #### [facility] CLIA [id number] [address] [place] [address] WBC (Bld) [#/Vol] 6.74 10*3/uL Normal 3.70-11.00 [facility] Comment on above: Order Comment: Speci men Type: BLOOD SPECIMEN Ordering Facility: [facility] Address: [address] [place] [address] Performed By: #### 1 9123-9, 10232-5, 277- #### [facility] CLIA [id number] [address] [place] [address] 95726 Comprehensive metabolic 2000 panelon 11-30-2024 Albumin [Mass/Vol] 4.1 g/dL Normal 3.9-4.9 [facility] Comment on above: Order Comment: Speci men Type: BLOOD SPECIMEN Ordering Facility: [facility] Address: [address] [place] [address] Performed By: #### 1 9123-9, 58833-0, 2777-1 #### [facility] CLIA [id number] [address] [place] [address] 50530 ALP [Catalytic activity/Vol] 64 U/L Normal 38-113 [facility] Comment on above: Order Comment: Speci men Type: BLOOD SPECIMEN Ordering Facility: [facility] Address: [address] [place] [address] Performed By: #### 1 9123-9, 54410-1, 2777-1 #### [facility] CLIA [id number] [address] [place] [address] 96336 ALT [Catalytic activity/Vol] 10 U/L Normal 10-54 [facility] Comment on above: Order Comment: Speci men Type: BLOOD SPECIMEN Ordering Facility: [facility] Address: [address] [place] [address] Performed By: #### 1 9123-9, 24486-5, 2777-1 #### [facility] CLIA [id number] [address] [place] [address] 13942 Anion gap [Moles/Vol] 12 mmol/L Normal 8-15 [facility] Comment on above: Order Comment: Speci men Type: BLOOD SPECIMEN Ordering Facility: [facility] Address: [address] [place] [address] Performed By: #### 1 9123-9, 39627-2, 2777-1 #### [facility] CLIA [id number] [address] [place] [address] 44264 AST [Catalytic activity/Vol] 16 U/L Normal 14-40 [facility] Comment on above: Order Comment: Speci men Type: BLOOD SPECIMEN Ordering Facility: [facility] Address: [address] [place] [address] Performed By: #### 1 9123-9, 42416-4, 277- #### [facility] CLIA [id number] [address] [place] [address] 68254 Bilirubin [Mass/Vol] 1.4 mg/dL High 0.2-1.3 [facility] Comment on above: Order Comment: Speci men Type: BLOOD SPECIMEN Ordering Facility: [facility] Address: [address] [place] [address] Performed By: #### 1 9123-9, 45944-5, 277- #### [facility] CLIA [id number] [address] [place] [address] 98742 Calcium [Mass/Vol] 9.6 mg/dL Normal 8.5-10.2 [facility] Comment on above: Order Comment: Speci men Type: BLOOD SPECIMEN Ordering Facility: [facility] Address: [address] [place] [address] Performed By: #### 1 9123-9, 79092-8, 2776- #### [facility] CLIA [id number] [address] [place] [address] 56378 Chloride [Moles/Vol] 109 mmol/L High 98-107 [facility] Comment on above: Order Comment: Speci men Type: BLOOD SPECIMEN Ordering Facility: [facility] Address: [address] [place] [address] Performed By: #### 1 9123-9, 67586-0, 277- #### [facility] CLIA [id number] [address] [place] [address] 91140 CO2 [Moles/Vol] 24 mmol/L Normal 22-30 [facility] Comment on above: Order Comment: Speci men Type: BLOOD SPECIMEN Ordering Facility: [facility] Address: [address] [place] [address] Performed By: #### 1 9123-9, 58180-7, 2777- #### [facility] CLIA [id number] [address] [place] [address] 81665 Creatinine [Mass/Vol] 1.31 mg/dL High 0.73-1.22 [facility] Comment on above: Order Comment: Speci jacki Type: BLOOD SPECIMEN Ordering Facility: [facility] Address: [address] [place], [place] [address] Performed By: #### 1 9123-9, 79461-9, 277- #### [facility] CLIA [id number] [address] [place] [address] 95427 Creatinine and Glomerular filtration rate.predicted panel (S/P/Bld) 60 mL/min/1.73m??? Normal >=60 [facility] Comment on above: Order Comment: Anitra echeverria Type: BLOOD SPECIMEN Ordering Facility: [facility] Address: [address] [place] [address] Result Comment: Katalina mated Glomerular Filtration Rate [...] actual GFR. Performed By: #### 1 9123-9, 98613-1, 2777- #### [facility] CLIA [id number] [address] [place] [address] 59921 Glucose [Mass/Vol] 121 mg/dL High 74-99 [facility] Comment on above: Order Comment: Anitra echeverria Type: BLOOD SPECIMEN Ordering Facility: [facility] Address: [address] [place], [place] [address] Result Comment: The [place] Diabetes Association (ADA) provides guidance for cutoff [...] Standards of Medical Care in Diabetes 2016, [place] [employer]. Diabetes Care. 2016.39(Suppl 1). Performed By: #### 1 9123-9, 26542-0, 2776- #### [facility] CLIA [id number] [address] [place] [address] Potassium [Moles/Vol] 4.3 mmol/L Normal 3.7-5.1 [facility] Comment on above: Order Comment: Anitra echeverria Type: BLOOD SPECIMEN Ordering Facility: [facility] Address: [address] [place] [address] Performed By: #### 1 9123-9, , 2776- #### [facility] CLIA [id number] [address] [place] [address] 64969 Protein [Mass/Vol] 6.0 g/dL Low 6.3-8.0 [facility] Comment on above: Order Comment: Anitra echeverria Type: BLOOD SPECIMEN Ordering Facility: [facility] Address: [address] [place], [place] [address] Performed By: #### 1 9123-9, 65085-9, 2776- #### [facility] CLIA [id number] [address] [place] [address] 58887 Sodium [Moles/Vol] 145 mmol/L High 136-144 [facility] Comment on above: Order Comment: Sharoni jacki Type: BLOOD SPECIMEN Ordering Facility: [facility] Address: [address] [place] [address] Performed By: #### 1 9123-9, 40104-8, 2776- #### [facility] CLIA [id number] [address] [place] [address] 70273 Urea nitrogen [Mass/Vol] 15 mg/dL Normal 9-24 [facility] Comment on above: Order Comment: Speci jacki Type: BLOOD SPECIMEN Ordering Facility: [facility] Address: [address] [place] [address] Performed By: #### 1 9123-9, 80404-3, 2777-1 #### [facility] CLIA [id number] [address] [place] [address] 64827 Magnesium SerPl-ncon 11-30 Magnesium [Mass/Vol] 1.6 mg/dL Low 1.7-2.3 [facility] Comment on above: Order Comment: Anitra echeverria Type: BLOOD SPECIMEN Ordering Facility: [facility] Address: [address] [place] [address] Performed By: #### 1 9123-9, 17466-7, 2777-1 #### [facility] CLIA [id number] [address] [place] [address] 87014 Phosphate SerPl-ncon 11-30 Phosphate [Mass/Vol] 2.9 mg/dL Normal 2.7-4.8 [facility] Comment on above: Order Comment: Anitra echeverria Type: BLOOD SPECIMEN Ordering Facility: [facility] Address: [address] [place] [address] Performed By: #### 1 9123-9, 39602-9, 2777-1 #### [facility] CLIA [id number] [address] [place] [address] 82118 Tacrolimus Bld-mCncon 2024 Tacrolimus (Bld) [Mass/Vol] 7.1 ng/mL Normal 5.0-20.0 [facility] Comment on above: Order Comment: Anitra echeverria Type: BLOOD SPECIMEN Ordering Facility: [facility] Address: [address] [place] [address] Result Comment: Olivia vidualized target levels for [...] Gonzalez Alinity i. Performed By: #### 1 9123-9, 99849-3, 2777-1 #### [facility] CLIA [id number] [address] [place] [address] 01413 CNOVon 11-25-2024 CNOV Office Visit (CAEPLN ) LINK ROSEN ([id number]) 1955 M Date Time Provider Department 11/25/24 1:30 PM WEI PABLO CAEPLN During your visit today, we recorded the following information about you: Pulse Blood pressure Weight 80/minute 132/82 167.9 kg Wei Pablo MD 11/25/2024 1:41 PM Signed [facility] SECTION OF REGIONAL CARDIOLOGY OUTPATIENT VISIT DATE November 25, 2024 OUTPATIENT VISIT TYPE ESTABLISHED PRIMARY CARE PHYSICIAN: [place] [address] CHIEF COMPLAINT: Persistent afib HISTORY OF PRESENT ILLNESS: Mr. Rosen is a 69 year old male with NICM, obesity, persistent AF , afib ablation in 02/2024. Had recurrence in September 2024 and underwent DCCV into sinus rhythm. No new recurrence since last DCCV. No chest pain. He has Polycystic kidney s/p renal transplant and on anti-rejection meds which relatively precluded shelter AAD ( due to risk of rqja-rkui-hxwrqogrstd). IMPRESSION: Persistent AF: S/p PVI in 02/2024 [...] Coronary atherosclerosis of unspecified type of vessel, [place] or graft Mild 3-vessel Coronary artery disease [...] mg by mouth once daily as needed. sulfamethoxazole-trimethopr im (BACTRIM) 400-80 mg per tablet Take 1 [...] Take 30 (more content not included)... Normal [facility] ECG COMPLETEon 11-25-2024 ECG COMPLETE Ventricular Rate : 8 1 BPM Atrial Rate : 81 BPM P-R Interval : 204 ms QRS Duration : 112 ms Q-T Interval : 406 ms QTC Calculation(Bazett) : 471 ms Calculated P [place] : 18 degrees Calculated R [place] : -74 degrees Calculated T [place] : 37 degrees SINUS RHYTHM WITH PREMATURE ATRIAL COMPLEXES LEFT ANTERIOR FASCICULAR BLOCK CANNOT EXCLUDE ANTERIOR MYOCARDIAL INFARCTION , AGE UNDETERMINED ABNORMAL ECG Confirmed by GRIS RAMIREZ DO ([id number]) on 11/28/2024 10:00:48 AM NAME : LINK ROSEN PID : [id number] : 1955 Gender : Male Race : ORD : [id number] Procedure Date : Nov 25 2024 13:33:00 [...] : Bev Acquired by : Yury quick [facility] CNOVon 11-05-2024 CNOV Office Visit (CAEPAV ) LINK ROSEN ([id number]) 1955 M Date Time Provider Department 11/05/24 1:00 PM MELISA BRICEÑO During your visit today, we recorded the following information about you: Temperature Pulse Respiration Blood pressure 97.8 degrees 71/minute 22/minute 124/72 Weight 167.5 kg Melisa Briceño APRN.STEM [employer]YER MAINTAINER 11/05/2024 1:26 PM Signed [facility] [place] Department of Cardiovascular Medicine SECTION OF ELECTROPHYSIOLOGY AND PACING OUTPATIENT VISIT DATE November 05, 2024 OUTPATIENT VISIT TYPE ESTABLISHED PRIMARY CARE PHYSICIAN: [facility]on [facility] [place] [address] CHIEF COMPLAINT: Follow Up HISTORY OF PRESENT [...] Coronary atherosclerosis of unspecified type of vessel, [place] or graft Mild 3-vessel Coronary artery disease [...] mg by mouth once daily as needed. sulfamethoxazole-trimethopr im (BACTRIM) 400-80 mg per tablet Take 1 [...] ECHO 10/31/2023: (more content not included)... Normal [facility] [id number] 11-05-2024 ECG01 Ventricular Rate : 6 8 BPM Atrial Rate : 68 BPM P-R Interval : 202 ms QRS Duration : 112 ms Q-T Interval : 422 ms QTC Calculation(Bazett) : 448 ms Calculated P [place] : 18 degrees Calculated R [place] : -69 degrees Calculated T [place] : 14 degrees NORMAL SINUS RHYTHM LEFT ANTERIOR FASCICULAR BLOCK ABNORMAL ECG Confirmed by SANDRA DARBY M.D. ([id number]) on 11/07/2024 9:59:05 PM NAME : LINK ROSEN PID : [id number] : 1955 Gender : Male Race : [...] By : , Acquired by : Yury [facility] ANES POSTPROC EVALon 025 ANES POSTPROC EVAL HNO ID: [id number] Author: STEVEN AKERS MD Service: Anesthesiology Author Type: Anesthesiologist Type: Anesthesia Postprocedure Evaluation Filed: 09/10/2024 12:49 Note Text: POST ANESTHESIA EVALUATION NOTE : 1955 Procedure Summary Date: 09/10/24 Room / Location: [facility] / [facility] Anesthesia Start: 1119 Anesthesia Stop: 1130 Procedure: [...] September 10, 2024 TIME: 12:49 PM CSN: [id number] [facility] ANES PRE-OPon 09-10-2024 ANES PRE-OP HNO ID: [id number] Author: STEVEN AKERS MD Service: Anesthesiology Author [...] and consent discussed: yes. Patient / Responsible Democrat agrees to proceed: yes Patient / Surrogate [...] mg by mouth once daily as needed. sulfamethoxazole-trimethopr im (BACTRIM) 400-80 mg per tablet Take 1 [...] September 10, 2024 TIME: 10:23 AM CSN: [id number] [facility] ECG COMPLETEon 09-10-2024 ECG COMPLETE Ventricular Rate : 8 9 BPM Atrial Rate : 104 BPM P-R Interval : 182 ms QRS Duration : 118 ms Q-T Interval : 384 ms QTC Calculation(Bazett) : 468 ms Calculated R [place] : -63 degrees Calculated T [place] : 82 degrees Atrial fibrillation Incomplete left bundle branch block Consider anterior infarct Abnormal ECG Confirmed by EDI GALEANO MD ([id number]) on 10/04/2024 10:04:57 AM NAME : LINK ROSEN PID : [id number] : 1955 Gender : Male Race : ORD : [id number] Procedure Date : Sep 10 2024 10:09:18 Edit Date : Oct 04 2024 10:05:01 Diagnosis: Atrial fibrillation Incomplete left bundle branch block Consider anterior infarct Abnormal ECG Confirmed by EDI GALEANO MD ([id number]) on 10/04/2024 10:04:57 AM Test Reason : Pre-OP Location : 400 : [facility] 13 Overread By : EDI GALEANO MD Edited By : EDI GALEANO MD Referred By : , Acquired by : , Normal [facility] EKGon 09-10-2024 Electrocardiogram Ventricular Rate : 7 4 BPM Atrial Rate : 73 BPM P-R Interval : 221 ms QRS Duration : 120 ms Q-T Interval : 431 ms QTC Calculation(Bazett) : 479 ms Calculated P [place] : -5 degrees Calculated R [place] : -63 degrees Calculated T [place] : 67 degrees Sinus rhythm Atrial premature complex Prolonged [place] interval Incomplete left bundle branch block Confirmed by EDI GALEANO MD ([id number]) on 10/04/2024 10:10:54 AM NAME : LINK ROSEN PID : [id number] : 1955 Gender : Male Race : ORD : Procedure Date : Sep 10 2024 11:34:24 Edit Date : Oct 04 2024 10:11:00 Diagnosis: Sinus rhythm Atrial premature complex Prolonged LA interval Incomplete left bundle branch block Confirmed by EDI GALEANO MD ([id number]) on 10/04/2024 10:10:54 AM Test Reason : Location : 400 : [facility] 13 Overread By : EDI GAELANO MD Edited By : EDI GALEANO MD Referred By : , Acquired by : 400, Normal [facility] HISTORY PHYSICALon HISTORY PHYSICAL HNO ID: [id number] Author: ESTUARDO MURPHY APRN.[employer]YER MAINTAINER, DNP Service: Cardiovascular Disease Author Type: Nurse [...] Coronary atherosclerosis of unspecified type of vessel, [place] or graft Mild 3-vessel Coronary artery disease [...] as needed., Disp: , Rfl: , 09/09/2024 sulfamethoxazole-trimethopr im (BACTRIM) 400-80 mg per tablet, Take 1 [...] the last 720 hours. BMP: Recent Labs 08/30/2427 NA 140 K 4.3 CHLOR 106 CO2 24 BUN 12 CREAT 1.24* GLUC 110* Assessment: Mr. Link Rosen is a 69 year old male with h/o obesity, polycystic kidney disease, s/p kidney transplant, hypertensive kidney disease, dilated aorta (more content not included)... [facility] NURSING PROGon 09-10-2024 NURSING PROG HNO ID: [id number] Author: JENNIFER MC, RN Service: Nursing Author Type: Registered Nurse Type: Nursing Progress Note Filed: 09/10/2024 12:34 Note Text: Nursing Progress Note Topic of Note: post procedure PATIENT NAME: Link Rosen Patient Location: HOME CARE ASSISTANT POOL/ HOME CARE ASSISTANT POOL Room: HOME CARE ASSISTANT POOL (HOME CARE ASSISTANT 13) 1139 s/p successful cardioversion. Shocked x1 [...] This note was completed by: Jennifer Mc [facility] OPERATIVE NOon 09-10-2024 OPERATIVE NO HNO ID: [id number] Author: WEI PABLO MD Service: Electrophysiology Author Type: Physician Type: Operative Report Filed: 09/10/2024 11:56 Note Text: PROCEDURE NOTE: CARDIOVERSION The risks, benefits, alternatives, and personnel discussed with patient or sales representative sales manager who consents to the procedure. UNIVERSAL PROTOCOL [...] MD September 10, 2024 11:54 AM Normal [facility] CBC W Auto Differential pane l (Bld)on 08-30-2024 Basophils (Bld) [#/Vol] 0.04 10*3/uL Normal <0.11 [facility] Comment on above: Order Comment: Anitra echeverria Type: BLOOD SPECIMEN Ordering Facility: [facility] Address: [address] [place] [address] Performed By: #### 1 9123-9, 21702-7, 2777-1 #### [facility] CLIA [id number] [address] [place] [address] 80661 Basophils/100 WBC (Bld) 0.7 % Normal [facility] Comment on above: Order Comment: Anitra echeverria Type: BLOOD SPECIMEN Ordering Facility: [facility] Address: [address] [place] [address] Performed By: #### 1 9123-9, 33319-4, 2776- #### [facility] CLIA [id number] [address] [place] [address] 50105 Differential cell count method Nom (Bld) Auto Normal [facility] Comment on above: Order Comment: Speci men Type: BLOOD SPECIMEN Ordering Facility: [facility] Address: [address] [place] [address] Performed By: #### 1 9123-9, 54382-9, 2776- #### [facility] CLIA [id number] [address] [place] [address] 43219 Eosinophils (Bld) [#/Vol] 0.19 10*3/uL Normal <0.46 [facility] Comment on above: Order Comment: Speci men Type: BLOOD SPECIMEN Ordering Facility: [facility] Address: [address] [place] [address] Performed By: #### 1 23-9, 04008-3, 2776-09 #### [facility] CLIA [id number] [address] [place] [address] 78646 Eosinophils/100 WBC (Bld) 3.2 % Normal [facility] Comment on above: Order Comment: Speci men Type: BLOOD SPECIMEN Ordering Facility: [facility] Address: [address] [place] [address] Performed By: #### 1 23-9, 74645-3, 2776-09 #### [facility] CLIA [id number] [address] [place] [address] 30472 Erythrocyte distribution width (RBC) [Ratio] 12.7 % Normal 11.5-15.0 [facility] Comment on above: Order Comment: Speci men Type: BLOOD SPECIMEN Ordering Facility: [facility] Address: [address] [place] [address] Performed By: #### 1 9123-9, 87731-3, 2776- #### [facility] CLIA [id number] [address] [place] [address] 83000 Hematocrit (Bld) [Volume fraction] 43.8 % Normal 39.0-51.0 [facility] Comment on above: Order Comment: Speci men Type: BLOOD SPECIMEN Ordering Facility: [facility] Address: [address] [place] [address] Performed By: #### 1 9123-9, 82760-2, 277- #### [facility] CLIA [id number] [address] [place] [address] 94584 Hemoglobin (Bld) [Mass/Vol] 15.1 g/dL Normal 13.0-17.0 [facility] Comment on above: Order Comment: Speci men Type: BLOOD SPECIMEN Ordering Facility: [facility] Address: [address] [place] [address] Performed By: #### 1 9123-9, 77399-6, 2776- #### [facility] CLIA [id number] [address] [place] [address] 68769 Immature granulocytes (Bld) [#/Vol] 10*3/uL Normal <0.10 [facility] Comment on above: Order Comment: Speci men Type: BLOOD SPECIMEN Ordering Facility: [facility] Address: [address] [place] [address] Performed By: #### 1 9123-9, 22893-1, 2776- #### [facility] CLIA [id number] [address] [place] [address] 88671 Immature granulocytes/100 WBC (Bld) 0.2 % Normal [facility] Comment on above: Order Comment: Speci men Type: BLOOD SPECIMEN Ordering Facility: [facility] Address: [address] [place] [address] Performed By: #### 1 9123-9, 02904-2, 2776- #### [facility] CLIA [id number] [address] [place] [address] 39767 Lymphocytes (Bld) [#/Vol] 2.44 10*3/uL Normal 1.00-4.00 [facility] Comment on above: Order Comment: Speci men Type: BLOOD SPECIMEN Ordering Facility: [facility] Address: [address] [place] [address] Performed By: #### 1 9123-9, 41800-9, 2776- #### [facility] CLIA [id number] [address] [place] [address] 16403 Lymphocytes/100 WBC (Bld) 41.1 % Normal [facility] Comment on above: Order Comment: Speci men Type: BLOOD SPECIMEN Ordering Facility: [facility] Address: [address] [place] [address] Performed By: #### 1 9123-9, 17060-8, 2776-09 #### [facility] CLIA [id number] [address] [place] [address] 31888 MCH (RBC) [Entitic mass] 32.3 pg Normal 26.0-34.0 [facility] Comment on above: Order Comment: Speci men Type: BLOOD SPECIMEN Ordering Facility: [facility] Address: [address] [place] [address] Performed By: #### 1 9123-9, 26347-3, 2776-09 #### [facility] CLIA [id number] [address] [place] [address] 86067 MCHC (RBC) [Mass/Vol] 34.5 g/dL Normal 30.5-36.0 [facility] Comment on above: Order Comment: Speci men Type: BLOOD SPECIMEN Ordering Facility: [facility] Address: [address] [place] [address] Performed By: #### 1 9123-9, 00412-3, 2776-09 #### [facility] CLIA [id number] [address] [place] [address] 79415 MCV (RBC) [Entitic vol] 93.8 fL Normal 80.0-100.0 [facility] Comment on above: Order Comment: Speci men Type: BLOOD SPECIMEN Ordering Facility: [facility] Address: [address] [place] [address] Performed By: #### 1 9123-9, 30507-0, 2776- #### [facility] CLIA [id number] [address] [place] [address] 96758 Monocytes (Bld) [#/Vol] 0.40 10*3/uL Normal <0.87 [facility] Comment on above: Order Comment: Speci men Type: BLOOD SPECIMEN Ordering Facility: [facility] Address: [address] [place] [address] Performed By: #### 1 9123-9, 24103-7, 2776- #### [facility] CLIA [id number] [address] [place] [address] 66209 Monocytes/100 WBC (Bld) 6.7 % Normal [facility] Comment on above: Order Comment: Speci men Type: BLOOD SPECIMEN Ordering Facility: [facility] Address: [address] [place] [address] Performed By: #### 1 9123-9, 93635-1, 2776- #### [facility] CLIA [id number] [address] [place] [address] 92738 Neutrophils (Bld) [#/Vol] 2.85 10*3/uL Normal 1.45-7.50 [facility] Comment on above: Order Comment: Speci men Type: BLOOD SPECIMEN Ordering Facility: [facility] Address: [address] [place] [address] Performed By: #### 1 9123-9, 49503-6, 2776- #### [facility] CLIA [id number] [address] [place] [address] 79598 Neutrophils/100 WBC (Bld) 48.1 % Normal [facility] Comment on above: Order Comment: Speci men Type: BLOOD SPECIMEN Ordering Facility: [facility] Address: [address] [place] [address] Performed By: #### 1 9123-9, 81861-8, 2776- #### [facility] CLIA [id number] [address] [place] [address] Nucleated RBC (Bld) [#/Vol] 10*3/uL Normal <0.01 [facility] Comment on above: Order Comment: Speci men Type: BLOOD SPECIMEN Ordering Facility: [facility] Address: [address] [place] [address] Performed By: #### 1 9123-9, 52395-3, 277- #### [facility] CLIA [id number] [address] [place] [address] 93601 Nucleated RBC/100 WBC (Bld) [Ratio] 0.0 /100 WBC Normal [facility] Comment on above: Order Comment: Speci men Type: BLOOD SPECIMEN Ordering Facility: [facility] Address: [address] [place] [address] Performed By: #### 1 9123-9, 56104-1, 2776- #### [facility] CLIA [id number] [address] [place] [address] 38972 Platelet mean volume (Bld) [Entitic vol] 8.9 fL Low 9.0-12.7 [facility] Comment on above: Order Comment: Speci men Type: BLOOD SPECIMEN Ordering Facility: [facility] Address: [address] [place] [address] Performed By: #### 1 9123-9, 83498-9, 277- #### [facility] CLIA [id number] [address] [place] [address] 72362 Platelets (Bld) [#/Vol] 137 10*3/uL Low 150-400 [facility] Comment on above: Order Comment: Speci men Type: BLOOD SPECIMEN Ordering Facility: [facility] Address: [address] [place] [address] Performed By: #### 1 9123-9, 18748-6, 277- #### [facility] CLIA [id number] [address] [place] [address] 03828 RBC (Bld) [#/Vol] 4.67 10*6/uL Normal 4.20-6.00 [facility] Comment on above: Order Comment: Speci men Type: BLOOD SPECIMEN Ordering Facility: [facility] Address: [address] [place], [place] [address] Performed By: #### 1 9123-9, 20777-0, 2777-1 #### [facility] CLIA [id number] [address] [place] [address] 94877 WBC (Bld) [#/Vol] 5.93 10*3/uL Normal 3.70-11.00 [facility] Comment on above: Order Comment: Speci men Type: BLOOD SPECIMEN Ordering Facility: [facility] Address: [address] [place], [place] [address] Performed By: #### 1 9123-9, 30837-9, 2777-1 #### [facility] CLIA [id number] [address] [place] [address] 59601 Abel 08-30-2024 SEANN Telephone ([facility]PR[facility]) LINK ROSEN ([id number]) 1955 M Date Time Provider Department 08/30/24 MELISA BRICEÑO [facility] During your visit today, we recorded the [...] by mouth once daily as needed. - sulfamethoxazole-trimethopr im (BACTRIM) 400-80 mg per tablet Take 1 [...] Status:Closed by LAYLA JARQUIN on 08/30/24 Normal [facility] metabolic 2000 panelon 08-30-2024 Albumin [Mass/Vol] 4.1 g/dL Normal 3.9-4.9 [facility] Comment on above: Order Comment: Speci men Type: BLOOD SPECIMEN Ordering Facility: [facility] Address: [address] [place] [address] Performed By: #### 1 9123-9, 05340-8, 2777-1 #### [facility] CLIA [id number] [address] [place] [address] 82987 ALP [Catalytic activity/Vol] 58 U/L Normal 38-113 [facility] Comment on above: Order Comment: Speci men Type: BLOOD SPECIMEN Ordering Facility: [facility] Address: [address] [place] [address] Performed By: #### 1 9123-9, 50577-1, 2777-1 #### [facility] CLIA [id number] [address] [place] [address] 59526 ALT [Catalytic activity/Vol] 9 U/L Low 10-54 [facility] Comment on above: Order Comment: Speci men Type: BLOOD SPECIMEN Ordering Facility: [facility] Address: [address] [place] [address] Performed By: #### 1 9123-9, 48893-8, 2777-1 #### [facility] CLIA [id number] [address] [place] [address] 35114 Anion gap [Moles/Vol] 10 mmol/L Normal 8-15 [facility] Comment on above: Order Comment: Speci men Type: BLOOD SPECIMEN Ordering Facility: [facility] Address: [address] [place] [address] Performed By: #### 1 9123-9, 92999-1, 2777-1 #### [facility] CLIA [id number] [address] [place] [address] 43151 AST [Catalytic activity/Vol] 12 U/L Low 14-40 [facility] Comment on above: Order Comment: Speci men Type: BLOOD SPECIMEN Ordering Facility: [facility] Address: [address] [place] [address] Performed By: #### 1 9123-9, 36356-5, 2776- #### [facility] CLIA [id number] [address] [place] [address] 49560 Bilirubin [Mass/Vol] 1.5 mg/dL High 0.2-1.3 [facility] Comment on above: Order Comment: Speci men Type: BLOOD SPECIMEN Ordering Facility: [facility] Address: [address] [place] [address] Performed By: #### 1 9123-9, 23499-9, 2776- #### [facility] CLIA [id number] [address] [place] [address] 96109 Calcium [Mass/Vol] 9.6 mg/dL Normal 8.5-10.2 [facility] Comment on above: Order Comment: Speci men Type: BLOOD SPECIMEN Ordering Facility: [facility] Address: [address] [place] [address] Performed By: #### 1 9123-9, 56770-2, 2776-09 #### [facility] CLIA [id number] [address] [place] [address] 36381 Chloride [Moles/Vol] 106 mmol/L Normal 98-107 [facility] Comment on above: Order Comment: Speci men Type: BLOOD SPECIMEN Ordering Facility: [facility] Address: [address] [place] [address] Performed By: #### 1 9123-9, 98967-1, 2776- #### [facility] CLIA [id number] [address] [place] [address] 19094 CO2 [Moles/Vol] 24 mmol/L Normal 22-30 [facility] Comment on above: Order Comment: Speci men Type: BLOOD SPECIMEN Ordering Facility: [facility] Address: [address] [place] [address] Performed By: #### 1 9123-9, 90378-7, 277- #### [facility] CLIA [id number] [address] [place] [address] Creatinine [Mass/Vol] 1.24 mg/dL High 0.73-1.22 [facility] Comment on above: Order Comment: Speci men Type: BLOOD SPECIMEN Ordering Facility: [facility] Address: [address] [place] [address] Performed By: #### 1 9123-9, 25511-5, 2776- #### [facility] CLIA [id number] [address] [place] [address] 51769 Creatinine and Glomerular filtration rate.predicted panel (S/P/Bld) 64 mL/min/1.73m??? Normal >=60 [facility] Comment on above: Order Comment: [facility] Type: BLOOD SPECIMEN Ordering Facility: [facility] Address: [address] [place] [address] Result Comment: Katalina mated Glomerular Filtration Rate [...] actual GFR. Performed By: #### 1 9123-9, 66449-2, 2776- #### [facility] CLIA [id number] [address] [place] [address] 94091 Glucose [Mass/Vol] 110 mg/dL High 74-99 [facility] Comment on above: Order Comment: Speci men Type: BLOOD SPECIMEN Ordering Facility: [facility] Address: [address] [id number] Result Comment: The [place] Diabetes Association (ADA) provides guidance for cutoff [...] Standards of Medical Care in Diabetes 2016, [place] [employer]. Diabetes Care. 2016.39(Suppl 1). Performed By: #### 1 9123-9, 75514-7, 277- #### [facility] CLIA [id number] [address] [place] [address] Potassium [Moles/Vol] 4.3 mmol/L Normal 3.7-5.1 [facility] Comment on above: Order Comment: Speci men Type: BLOOD SPECIMEN Ordering Facility: [facility] Address: [address] [place] [address] Performed By: #### 1 9123-9, 55543-3, 2776- #### [facility] CLIA [id number] [address] [place] [address] 54551 Protein [Mass/Vol] 6.0 g/dL Low 6.3-8.0 [facility] Comment on above: Order Comment: Speci jacki Type: BLOOD SPECIMEN Ordering Facility: [facility] Address: [address] [place] [address] Performed By: #### 1 9123-9, 73057-7, 2776- #### [facility] CLIA [id number] [address] [place] [address] 42578 Sodium [Moles/Vol] 140 mmol/L Normal 136-144 [facility] Comment on above: Order Comment: Speci men Type: BLOOD SPECIMEN Ordering Facility: [facility] Address: [address] [place] [address] Performed By: #### 1 9123-9, 79118-9, 2776- #### [facility] CLIA [id number] [address] [place] [address] Urea nitrogen [Mass/Vol] 12 mg/dL Normal 9-24 [facility] Comment on above: Order Comment: Speci men Type: BLOOD SPECIMEN Ordering Facility: [facility] Address: [address] [place] [address] Performed By: #### 1 9123-9, 77648-4, 2777-1 #### [facility] CLIA [id number] [address] [place] [address] 11752 Magnesium SerPl-ncon 08-30 Magnesium [Mass/Vol] 1.5 mg/dL Low 1.7-2.3 [facility] Comment on above: Order Comment: Speci men Type: BLOOD SPECIMEN Ordering Facility: [facility] Address: [address] [place] [address] Performed By: #### 1 9123-9, 48990-3, 2777-1 #### [facility] CLIA [id number] [address] [place] [address] 43712 Phosphate SerPl-mCncon 08-30 Phosphate [Mass/Vol] 2.7 mg/dL Normal 2.7-4.8 [facility] Comment on above: Order Comment: Speci men Type: BLOOD SPECIMEN Ordering Facility: [facility] Address: [address] [place] [address] Performed By: #### 1 9123-9, 05535-6, 2777-1 #### [facility] CLIA [id number] [address] [place] [address] 10712 Tacrolimus Bld-mCncon 2023 Tacrolimus (Bld) [Mass/Vol] 6.9 ng/mL Normal 5.0-20.0 [facility] Comment on above: Order Comment: Sharoni jacki Type: BLOOD SPECIMENOrdering Facility: [facility] Address: [address] [place] [address] Result Comment: Olivia vidualized target levels for [...] Alinity i. Performed By: #### 1 1253-2 ####[facility] [id number] [facility] [id number] [place], [place] [id number] [facility] Abel 08-27-2024 RENEA Telephone (CAEPAV) LINK ROSEN ([id number]) 1955 Date Time Provider Department 08/27/24 WEI PABLO CAEPAV During your visit today, we recorded the following information about you: Karlene Nguyen 08/27/2024 8:38 AM Signed ----- Message from MINDY Coelho sent at 08/27/2024 8:12 AM EST ----- 09/07 ----- Message ----- From: Karlene Nguyen Sent: 08/27/2024 7:04 AM EST To: MINDY May Can you please schedule his wallace w Dr Pablo next available ----- Message ----- From: Melisa Briceño APRN.CNP Sent: 08/26/2024 4:12 PM EST To: Karlene Mondragon I ordered labs now. I had messaged Dr. Pablo regarding whether or not he wanted to proceed, which he stated he did. So just need to schedule with senait Hassan. Andi ----- Message ----- From: Karlene Nguyen Sent: 08/26/2024 3:51 PM EST To: Melisa Briceño APRN.CNP There was a CC chart message from Dr Scott on this dmitry, And I can't find the message that I thought was from you regarding his labs? Maybe Can you please help WilliamKarlene Asencio 08/27/2024 8:39 AM Signed Called and left [...] by mouth once daily as needed. - sulfamethoxazole-trimethopr im (BACTRIM) 400-80 mg per tablet Take 1 [...] Encounter Status:Closed by KARLENE NGUYEN on 08/27/24 Normal [facility] Telephone (CAEPAV) LINK ROSEN ([id number]) 1955 M Date Time Provider Department 08/27/24 [...] by mouth once daily as needed. - sulfamethoxazole-trimethopr im (BACTRIM) 400-80 mg per tablet Take 1 [...] Encounter Status:Closed by KARLENE NGUYEN on 08/27/24 [facility] CNPN Telephone (CAEPAV) LINK ROSEN ([id number]) 1955 Hal Date Time Provider Department 08/27/24 WEI PABLO CAEPAV During your visit today, we recorded the following information about you: Karlene Nguyen 08/27/2024 11:54 AM Signed ----- Message from MINDY Coelho sent at 08/27/2024 8:12 AM EST ----- 09/07 ----- Message ----- From: Karlene Nguyen Sent: 08/27/2024 7:04 AM EST To: Julia Yi, METER MAINTENANCE PERSON Can you please schedule his dcc w Dr Pablo next available ----- Message ----- From: Melisa Briceño APRN.STEM DRYER MAINTAINER Sent: 08/26/2024 4:12 PM EST To: Karlene Mondragon I ordered labs now. I had messaged Dr. Pablo regarding whether or not he wanted to proceed, which he stated he did. So just need to schedule with Dr. Pablo, please. [place] ----- Message ----- From: Karlene Nguyen Sent: 08/26/2024 3:51 PM EST To: Melisa Briceño APRN.STEM DRYER MAINTAINER There was a CC chart message from Dr Scott on this dmitry, And I can't find the message that I thought was from you regarding his labs? Maybe Can you please help Karlene Nguyen 08/27/2024 11:55 AM Signed Called and spoke to patient and scheduled his cardioversion at [facility] with Dr Pablo for September 10. Patient notified instructions and sent mychart. Follow up scheduled. Allergies As of Date: 08/27/2024 (No Known Allergies) Date Reviewed: 07/27/2024 Reviewed by: Amanda Ramirez MA - Fully Assessed Prescriptions as of 08/27/2024 - hydrOXYzine HCl (ATARAX) 25 mg tablet Take 25 mg by mouth once daily as needed. - sulfamethoxazole-trimethopr im (BACTRIM) 400-80 mg per tablet Take 1 [...] Encounter Status:Closed by KARLENE NGUYEN on 08/27/24 [facility] 08-25-2024 CNPN Telephone (CAEPAV) LINK ROSEN ([id number]) 1955 Date Time Provider Department 08/25/24 WEI PABLO CAEPAV During your visit today, we recorded the following information about you: Karlene Nguyen 08/25/2024 7:12 AM Signed Called and scheduled with ep physician. Melisa Briceño APRN.STEM DRYER MAINTAINER 08/26/2024 3:54 PM Signed As noted previously, it was requested that patient have DCCV completed which Dr. Pablo agreed with. Can we please book this with him? Thank you! Melisa Briceño, Melisa Damon APRN.CNP 08/26/2024 4:11 PM Signed Addended by: MELISA BRICEÑO on: 08/26/2024 04:11 PM Modules accepted: Orders Allergies As of Date: 08/25/2024 (No Known Allergies) Date Reviewed: 07/27/2024 Reviewed by: Amanda Ramirez MA - Fully Assessed Primary Visit Diagnosis:Persistent atrial fibrillation (HCC) [I48.19] Order(s):COMPLETE BLOOD COUNT [SQCBC] Order #: [id number] FUTURE BASIC METABOLIC PANEL [SQBMP] Order #: [id number] FUTURE MAGNESIUM [SQMG1] Order #: [id number] FUTURE Prescriptions as of 08/26/2024 - hydrOXYzine HCl (ATARAX) 25 mg tablet Take 25 mg by mouth once daily as needed. - sulfamethoxazole-trimethopr im (BACTRIM) 400-80 mg per tablet Take 1 [...] Medel CMA Problem List As Of Date 08/25/2024 Noted [...] Encounter Status:Closed by KARLENE NGUYEN on 08/25/24 Normal [facility] CNOVon 07-27-2024 CNOV Office Visit (CARDLO ) LINK ROSEN ([id number]) 1955 M Date Time Provider Department 07/27/24 1:30 PM EMANUEL SCOTT During your visit today, we recorded the following information about you: Pulse Blood pressure Weight 78/minute 126/74 171.6 kg Emanuel Scott MD 07/27/2024 1:48 PM Signed [facility] SECTION OF REGIONAL CARDIOLOGY OUTPATIENT VISIT DATE Jul 27, 2024 OUTPATIENT VISIT TYPE Established PRIMARY CARE PHYSICIAN: Kathleen Sams [address] [place] [id number] REFERRING PHYSICIAN: Usman Lowry [address] [facility] [address] C/C: Follow-up for atrial fibrillation Last and initial visit with me March 2024 HISTORY OF PRESENT ILLNESS: Mr. Rosen is a 69 year old male, seen in clinic today for follow-up for atrial fibrillation CV history reviewed, summarized and updated: Initial visit with mn in Sep 2023-noted to be in Afib [...] in persistent atrial fibrillation, after discussion with food safety coordinator, was started on amiodarone. Plan was for [...] Coronary atherosclerosis of unspecified type of vessel, [place] or graft Mild 3-vessel Coronary artery disease [...] mg by mouth once daily as needed. sulfamethoxazole-trimethopr im (BACTRIM) 400-80 mg per tablet Take 1 [...] a day (more content not included)... Normal [facility] CNOVon 07-06-2024 OV Office Visit (RAQUEL ) LINK ROSEN ([id number]) 1955 Hal Date Time Provider Department 07/06/24 2:00 PM NHI ONEIL During your visit today, we recorded the following information about you: Pulse Blood pressure Weight Height 76/minute 117/75 171.7 kg 2.134 m Nhi Oneil MD 07/06/2024 5:08 PM Signed [facility] July 06, 2024 Portions of this note were copied forward from the last encounter in this office to ensure historical accuracy. Changes were made to accurately reflect updated history, physical exam, and medical decision making. CC: KTXP FU HPI: Kidney transplant date: 04/19/09 [place] kidney nephrectomies at time of tx Original [...] 05/31/2017 4.1 (more content not included)... Normal [facility] URINALYSIS, REFLEX MICROSCOP ICon 07-06-2024 Bilirubin Ql (U) Negative Negative [facility] Clarity (Unsp spec) Clear Clear [facility] Color (U) Yellow Yellow [facility] Glucose Test strip (U) [Mass/Vol] Negative Negative [facility] Hemoglobin Ql (U) Negative Negative [facility] Interpretation and review of laboratory results Normal [facility] Ketones Ql (U) Negative Negative [facility] Leukocyte esterase Test strip Ql (U) Negative Negative [facility] Nitrite Ql (U) Negative Negative [facility] pH (U) 6.0 [pH] NINF - 8.5 [facility] Protein (U) [Mass/Vol] Negative Negative [facility] Specific gravity (U) [Rel density] 1.019 1.005 - 1.030 [facility] Urobilinogen Ql (U) 1.0 EU/dL 0.2-1.0 EU/dL [facility] Bilirubin Ql (U) Negative Normal Negative [facility] Comment on above: Order Comment: Speci men Type: BLOOD SPECIMEN Ordering Facility: [facility] Address: [address] [place] [address] Performed By: #### 1 9123-9, 59674-0, 2777- #### [facility] CLIA [id number] [address] [place] [address]17 Clarity (Unsp spec) Clear Normal Clear [facility] Comment on above: Order Comment: Speci men Type: BLOOD SPECIMEN Ordering Facility: [facility] Address: [address] [place] [address] Performed By: #### 1 9123-9, 98978-9, 2777- #### [facility] CLIA [id number] [address] [place] [address]339 Color (U) Yellow Normal Yellow [facility] Comment on above: Order Comment: Speci men Type: BLOOD SPECIMEN Ordering Facility: [facility] Address: [address] [place] [address] Performed By: #### 1 23-9, 71571-3, 2776- #### [facility] CLIA [id number] [address] [place] [address] 86139 Glucose Test strip (U) [Mass/Vol] Negative Normal Negative [facility] Comment on above: Order Comment: Speci men Type: BLOOD SPECIMEN Ordering Facility: [facility] Address: [address] [place] [address] Performed By: #### 1 23-9, 93763-7, 2776- #### [facility] CLIA [id number] [address] [place] [address]140 Hemoglobin Ql (U) Negative Normal Negative [facility] Comment on above: Order Comment: Speci men Type: BLOOD SPECIMEN Ordering Facility: [facility] Address: [address] [place] [address] Performed By: #### 1 23-9, , 2776-09 #### [facility] CLIA [id number] [address] [place] [address] 85617 Ketones Ql (U) Negative Normal Negative [facility] Comment on above: Order Comment: Speci men Type: BLOOD SPECIMEN Ordering Facility: [facility] Address: [address] [place] [address] Performed By: #### 1 239, , 2776-09 #### [facility] CLIA [id number] [address] [place] [address] 65707 Leukocyte esterase Test strip Ql (U) Negative Normal Negative [facility] Comment on above: Order Comment: Speci men Type: BLOOD SPECIMEN Ordering Facility: [facility] Address: [address] [place] [address] Performed By: #### 1 23-9, 19296-4, 2776- #### [facility] CLIA [id number] [address] [place] [address] 74581 Nitrite Ql (U) Negative Normal Negative [facility] Comment on above: Order Comment: Speci men Type: BLOOD SPECIMEN Ordering Facility: [facility] Address: [address] [place] [address] Performed By: #### 1 9123-9, 47523-7, 2776- #### [facility] CLIA [id number] [address] [place] [address] 91287 pH (U) 6.0 [pH] Normal <8.5 [facility] Comment on above: Order Comment: Speci men Type: BLOOD SPECIMEN Ordering Facility: [facility] Address: [address] [place] [address] Performed By: #### 1 9123-9, 31151-4, 2776-09 #### [facility] CLIA [id number] [address] [place] [address] 08164 Protein (U) [Mass/Vol] Negative Normal Negative [facility] Comment on above: Order Comment: Speci men Type: BLOOD SPECIMEN Ordering Facility: [facility] Address: [address] [place] [address] Performed By: #### 1 9123-9, 42108-0, 2776-09 #### [facility] CLIA [id number] [address] [place] [address] 80827 Specific gravity (U) [Rel density] 1.019 Normal 1.005-1.030 [facility] Comment on above: Order Comment: Speci men Type: BLOOD SPECIMEN Ordering Facility: [facility] Address: [address] [place] [address] Performed By: #### 1 9123-9, 56568-0, 2776- #### [facility] CLIA [id number] [address] [place] [address] 44771 Urobilinogen Ql (U) 1.0 EU/dL Normal 0.2-1.0 EU/dL [facility] Comment on above: Order Comment: Speci men Type: BLOOD SPECIMEN Ordering Facility: [facility] Address: [address] [place] [address] Performed By: #### 1 9123-9, 69081-5, 2777-1 #### [facility] CLIA [id number] [address] [place] [address]30 [facility] Nurse Visit (HEMASA) LINK ROSEN ([id number]) 1955 M Date Time Provider Department 06/25/24 10:15 AM [facility]SE MUSA PRICE BECKER During your visit today, we recorded the following information about you: Briana Castillo MA 06/25/2024 10:38 AM Signed EKG done as ordered, transmitted to [facility]. Briana Castillo MA Referring Provider: USMAN LOWRY [[id number]] Allergies As of Date: 06/25/2024 (No Known Allergies) Date Reviewed: 03/18/2024 Reviewed by: Layla Jarquin, LISE - Fully Assessed Visit Diagnosis:Irregular heartbeat [I49.9] Order(s):ECG COMPLETE [ECG01] Order #: [id number] Prescriptions as of 06/25/2024 - predniSONE (DELTASONE) [...] Status:Closed by BRIANA CASTILLO on 06/25/24 Normal [facility] CBC panel Auto (Bld)on 06-01 Erythrocyte distribution width (RBC) [Ratio] 13.2 % Normal 11.5-15.0 [facility] Comment on above: Order Comment: Speci men Type: BLOOD SPECIMEN Ordering Facility: [facility] Address: [address] [place] [address] Performed By: #### 1 9123-9, 50771-8, 2777-1 #### [facility] CLIA [id number] [address] [place] [address] 13238 Hematocrit (Bld) [Volume fraction] 43.5 % Normal 39.0-51.0 [facility] Comment on above: Order Comment: Speci men Type: BLOOD SPECIMEN Ordering Facility: [facility] Address: [address] [place] [address] Performed By: #### 1 9123-9, 66453-6, 27703-08 #### [facility] CLIA [id number] [address] [place] [address] 19147 Hemoglobin (Bld) [Mass/Vol] 15.2 g/dL Normal 13.0-17.0 [facility] Comment on above: Order Comment: Speci men Type: BLOOD SPECIMEN Ordering Facility: [facility] Address: [address] [place] [address] Performed By: #### 1 9123-9, 27536-2, 27703-08 #### [facility] CLIA [id number] [address] [place] [address] 27340 MCH (RBC) [Entitic mass] 33.0 pg Normal 26.0-34.0 [facility] Comment on above: Order Comment: Speci men Type: BLOOD SPECIMEN Ordering Facility: [facility] Address: [address] [place] [address]78 Performed By: #### 1 9123-9, 07208-0, 27703-08 #### [facility] CLIA [id number] [address] [place] [address] 48063 MCHC (RBC) [Mass/Vol] 34.9 g/dL Normal 30.5-36.0 [facility] Comment on above: Order Comment: Speci men Type: BLOOD SPECIMEN Ordering Facility: [facility] Address: [address] [place] [address]807 Performed By: #### 1 9123-9, 75659-0, 277- #### [facility] CLIA [id number] [address] [place] [address] 96779 MCV (RBC) [Entitic vol] 94.6 fL Normal 80.0-100.0 [facility] Comment on above: Order Comment: Speci men Type: BLOOD SPECIMEN Ordering Facility: [facility] Address: [address] [place] [address] [place] [address] Performed By: #### 1 9123-9, 72176-5, 2777- #### [facility] CLIA [id number] [address] [place] [address] 69176 Nucleated RBC (Bld) [#/Vol] 10*3/uL Normal <0.01 [facility] Comment on above: Order Comment: Speci men Type: BLOOD SPECIMEN Ordering Facility: [facility] Address: [address] [place], [place] [address] Performed By: #### 1 9123-9, 83930-3, 277- #### [facility] CLIA [id number] [address] [place] [address] 24609 Platelet mean volume (Bld) [Entitic vol] 8.8 fL Low 9.0-12.7 [facility] Comment on above: Order Comment: Speci men Type: BLOOD SPECIMEN Ordering Facility: [facility] Address: [address] [place] [address] Performed By: #### 1 9123-9, 54006-9, 277- #### [facility] CLIA [id number] [address] [place] [address] 21142 Platelets (Bld) [#/Vol] 137 10*3/uL Low 150-400 [facility] Comment on above: Order Comment: Speci men Type: BLOOD SPECIMEN Ordering Facility: [facility] Address: [facility] [place] [id number] Performed By: #### 1 9123-9, 07741-0, 277- #### [facility] CLIA [id number] [address] [place] [address] 81630 RBC (Bld) [#/Vol] 4.60 10*6/uL Normal 4.20-6.00 [facility] Comment on above: Order Comment: Speci men Type: BLOOD SPECIMEN Ordering Facility: [facility] Address: [address] [place], [place] [address] Performed By: #### 1 9123-9, 32906-2, 2776- #### [facility] CLIA [id number] [address] [place] [address] WBC (Bld) [#/Vol] 6.65 10*3/uL Normal 3.70-11.00 [facility] Comment on above: Order Comment: Speci men Type: BLOOD SPECIMEN Ordering Facility: [facility] Address: [address] [place] [address] Performed By: #### 1 9123-9, 48204-7, 2776- #### [facility] CLIA [id number] [address] [place] [address] Comprehensive metabolic 2000 panelon 06-01-2024 Albumin [Mass/Vol] 4.3 g/dL Normal 3.9-4.9 [facility] Comment on above: Order Comment: Speci men Type: BLOOD SPECIMENOrdering Facility: [facility] Address: [address] [place] [address] Performed By: #### 2 777-1, , ####[facility] [id number] [place] [address] ALP [Catalytic activity/Vol] 58 U/L Normal 38-113 [facility] Comment on above: Order Comment: Speci men Type: BLOOD SPECIMENOrdering Facility: [facility] Address: [address] [place], [place] [address] Performed By: #### 2 777-1, , 36692-9 ####[facility] [id number] [place] [address] ALT [Catalytic activity/Vol] 9 U/L Low 10-54 [facility] Comment on above: Order Comment: Speci men Type: BLOOD SPECIMENOrdering Facility: [facility] Address: [address] [place], [place] [address] Performed By: #### 2 777-1, , 42724-4 ####[facility] [id number] [place] [address] Anion gap [Moles/Vol] 10 mmol/L Normal 8-15 [facility] Comment on above: Order Comment: Speci men Type: BLOOD SPECIMENOrdering Facility: [facility] Address: [address] [place] [address] Performed By: #### 2 777-1, , ####[facility] [id number] [place] [address] AST [Catalytic activity/Vol] 14 U/L Normal 14-40 [facility] Comment on above: Order Comment: Speci men Type: BLOOD SPECIMENOrdering Facility: [facility] Address: [address] [place] [address] Performed By: #### 2 777-1, , ####[facility] [id number] [place] [address] Bilirubin [Mass/Vol] 1.4 mg/dL High 0.2-1.3 [facility] Comment on above: Order Comment: Speci men Type: BLOOD SPECIMENOrdering Facility: [facility] Address: [address] [place] [address] Performed By: #### 2 777-1, , ####[facility] [id number] [place] [address] Calcium [Mass/Vol] 9.7 mg/dL Normal 8.5-10.2 [facility] Comment on above: Order Comment: Speci men Type: BLOOD SPECIMENOrdering Facility: [facility] Address: [address] [place] [address] Performed By: #### 2 777-1, , ####[facility] [id number] [place] [address] Chloride [Moles/Vol] 106 mmol/L Normal 98-107 [facility] Comment on above: Order Comment: Speci men Type: BLOOD SPECIMENOrdering Facility: [facility] Address: [address] [place] [address] Performed By: #### 2 777-1, , ####[facility] [id number] [place] [address] CO2 [Moles/Vol] 26 mmol/L Normal 22-30 [facility] Comment on above: Order Comment: Speci men Type: BLOOD SPECIMENOrdering Facility: [facility] Address: [address] [place], [place] [address] Performed By: #### 2 777-1, , ####[facility] [id number] [place] [address] Creatinine [Mass/Vol] 1.41 mg/dL High 0.73-1.22 [facility] Comment on above: Order Comment: Speci men Type: BLOOD SPECIMENOrdering Facility: [facility] Address: [address] [place], [place] [address] Performed By: #### 2 777-1, , ####[facility] [id number] [place] [address] Creatinine and Glomerular filtration rate.predicted panel (S/P/Bld) 55 mL/min/1.73m??? Low >=60 [facility] Comment on above: Order Comment: Speci men Type: BLOOD SPECIMENOrdering Facility: [facility] Address: [address] [place], [place] [address] Result Comment: Katalina mated Glomerular Filtration Rate [...] actual GFR. Performed By: #### 2 777-1, , ####[facility] [id number] [place] [address] Glucose [Mass/Vol] 113 mg/dL High 74-99 [facility] Comment on above: Order Comment: Speci men Type: BLOOD SPECIMENOrdering Facility: [facility] Address: [address] [place], [place] [address] Result Comment: The [place] Diabetes Association (ADA) provides guidance for cutoff [...] Standards of Medical Care in Diabetes 2016, [place] [employer]. Diabetes Care. 2016.39(Suppl 1). Performed By: #### 2 777-1, , ####[facility] [id number] [place] [address] Potassium [Moles/Vol] 4.3 mmol/L Normal 3.7-5.1 [facility] Comment on above: Order Comment: Speci men Type: BLOOD SPECIMENOrdering Facility: [facility] Address: [address] [place] [address] Performed By: #### 2 777-1, , ####[facility] [id number] [place] [address] Protein [Mass/Vol] 6.3 g/dL Normal 6.3-8.0 [facility] Comment on above: Order Comment: Speci men Type: BLOOD SPECIMENOrdering Facility: [facility] Address: [address] [place], [place] [address] Performed By: #### 2 777-1, , ####[facility] [id number] [place] [address] Sodium [Moles/Vol] 142 mmol/L Normal 136-144 [facility] Comment on above: Order Comment: Speci men Type: BLOOD SPECIMENOrdering Facility: [facility] Address: [address] [place], [place] [address] Performed By: #### 2 777-1, , ####[facility] [id number] [place] [address] Urea nitrogen [Mass/Vol] 15 mg/dL Normal 9-24 [facility] Comment on above: Order Comment: Speci men Type: BLOOD SPECIMENOrdering Facility: [facility] Address: [address] [place], [place] [address] Performed By: #### 2 777-1, , ####[facility] [id number] [place] [address] Magnesium SerPl-mCncon 06-01 Magnesium [Mass/Vol] 1.6 mg/dL Low 1.7-2.3 [facility] Comment on above: Order Comment: Speci men Type: BLOOD SPECIMENOrdering Facility: [facility] Address: [address] [place] [address] Performed By: #### 2 777-1, , ####[facility] [id number] [place] [address] Phosphate SerPl-mCncon 06-01 Phosphate [Mass/Vol] 2.7 mg/dL Normal 2.7-4.8 [facility] Comment on above: Order Comment: Speci men Type: BLOOD SPECIMENOrdering Facility: [facility] Address: [address] [place] [address] Performed By: #### 2 777-1, , 82563-5 ####[facility] [id number] [place] [address] Tacrolimus Bld-ncon 2023 Tacrolimus (Bld) [Mass/Vol] 6.6 ng/mL Normal 5.0-20.0 [facility] Comment on above: Order Comment: Speci jacki Type: BLOOD SPECIMEN Ordering Facility: [facility] Address: [address] [place], [place] [address] Result Comment: Olivia vidualized target levels for [...] situation. Test performed by chemiluminescent immunoassay using [employer] i. Performed By: #### 1 9123-9, 56043-6, 277- #### [facility] CLIA [id number] [address] [place] [address]851 Basic metabolic 2000 panelon 04-01-2024 Anion gap [Moles/Vol] 8 mmol/L Normal 8-15 [facility] Comment on above: Order Comment: Anitra echeverria Type: BLOOD SPECIMEN Ordering Facility: [facility] Address: [address] [place] [address] Performed By: #### 1 9123-9, 11889-5, 277- #### [facility] CLIA [id number] [address] [place] [address]32 Calcium [Mass/Vol] 10.1 mg/dL Normal 8.5-10.2 [facility] Comment on above: Order Comment: Speci jacki Type: BLOOD SPECIMEN Ordering Facility: [facility] Address: [address] [place] [address] Performed By: #### 1 9123-9, 90306-9, 277-1 #### [facility] CLIA [id number] [address] [place] [address] Chloride [Moles/Vol] 106 mmol/L Normal 98-107 [facility] Comment on above: Order Comment: Speci men Type: BLOOD SPECIMEN Ordering Facility: [facility] Address: [address] [place] [address] Performed By: #### 1 9123-9, 01042-0, 2777-1 #### [facility] CLIA [id number] [address] [place] [address] 67087 CO2 [Moles/Vol] 25 mmol/L Normal 22-30 [facility] Comment on above: Order Comment: Speci men Type: BLOOD SPECIMEN Ordering Facility: [facility] Address: [address] [place] [address] Performed By: #### 1 9123-9, 13741-1, 2777-1 #### [facility] CLIA [id number] [address] [place] [address]26 Creatinine [Mass/Vol] 1.48 mg/dL High 0.73-1.22 [facility] Comment on above: Order Comment: Speci men Type: BLOOD SPECIMEN Ordering Facility: [facility] Address: [address] [place] [address] Performed By: #### 1 9123-9, 11972-0, 2777-1 #### [facility] CLIA [id number] [address] [place] [address]49 Creatinine and Glomerular filtration rate.predicted panel (S/P/Bld) 52 mL/min/1.73m??? Low >=60 [facility] Comment on above: Order Comment: Speci men Type: BLOOD SPECIMEN Ordering Facility: [facility] Address: [address] [place] [address] Result Comment: Katalina mated Glomerular Filtration Rate [...] actual GFR. Performed By: #### 1 9123-9, 26043-3, 2777- #### [facility] CLIA [id number] [address] [place] [address]239 Glucose [Mass/Vol] 122 mg/dL High 74-99 [facility] Comment on above: Order Comment: Anitra echeverria Type: BLOOD SPECIMEN Ordering Facility: [facility] Address: [address] [place] [address] Result Comment: The [place] Diabetes Association (ADA) provides guidance for cutoff [...] Standards of Medical Care in Diabetes 2016, [place] [employer]. Diabetes Care. 2016.39(Suppl 1). Performed By: #### 1 9123-9, 85905-2, 2776-09 #### [facility] CLIA [id number] [address] [place] [address] Potassium [Moles/Vol] 4.3 mmol/L Normal 3.7-5.1 [facility] Comment on above: Order Comment: Anitra echeverria Type: BLOOD SPECIMEN Ordering Facility: [facility] Address: [address] [place] [address] Performed By: #### 1 9123-9, 72646-7, 277- #### [facility] CLIA [id number] [address] [place] [address] Sodium [Moles/Vol] 139 mmol/L Normal 136-144 [facility] Comment on above: Order Comment: Anitra echeverria Type: BLOOD SPECIMEN Ordering Facility: [facility] Address: [address] [place] [phone] Performed By: #### 1 9123-9, 32188-0, 2777-1 #### [facility] CLIA [id number] [address] [place] [address]6577 Urea nitrogen [Mass/Vol] 14 mg/dL Normal 9-24 [facility] Comment on above: Order Comment: Speci men Type: BLOOD SPECIMEN Ordering Facility: [facility] Address: [address] [place] [address] Performed By: #### 1 9123-9, 99399-8, 2777-1 #### [facility] CLIA [id number] [address] [place] [address] 64740 CBC panel Auto (Bld)on 04-01 Erythrocyte distribution width (RBC) [Ratio] 12.9 % Normal 11.5-15.0 [facility] Comment on above: Order Comment: Speci men Type: BLOOD SPECIMEN Ordering Facility: [facility] Address: [address] [place] [address] Performed By: #### 5 8410-2 #### [facility] CLIA [id number] [address] [place] [address]9747 Hematocrit (Bld) [Volume fraction] 42.8 % Normal 39.0-51.0 [facility] Comment on above: Order Comment: Speci men Type: BLOOD SPECIMEN Ordering Facility: [facility] Address: [address] [place] [address] Performed By: #### 5 8410-2 #### [facility] CLIA [id number] [address] [place] [address]20 Hemoglobin (Bld) [Mass/Vol] 14.6 g/dL Normal 13.0-17.0 [facility] Comment on above: Order Comment: Speci men Type: BLOOD SPECIMEN Ordering Facility: [facility] Address: [address] [place] [address] Performed By: #### 5 8410-2 #### [facility] CLIA [id number] [address] [place] [address] 10940 MCH (RBC) [Entitic mass] 31.8 pg Normal 26.0-34.0 [facility] Comment on above: Order Comment: Speci men Type: BLOOD SPECIMEN Ordering Facility: [facility] Address: [address] [place] [address] Performed By: #### 5 8410-2 #### [facility] CLIA [id number] [address] [place] [address] 28823 MCHC (RBC) [Mass/Vol] 34.1 g/dL Normal 30.5-36.0 [facility] Comment on above: Order Comment: Speci men Type: BLOOD SPECIMEN Ordering Facility: [facility] Address: [address] [place] [address] Performed By: #### 5 8410-2 #### [facility] CLIA [id number] [address] [place] [address] 68496 MCV (RBC) [Entitic vol] 93.2 fL Normal 80.0-100.0 [facility] Comment on above: Order Comment: Speci men Type: BLOOD SPECIMEN Ordering Facility: [facility] Address: [address] [place] [address] Performed By: #### 5 8410-2 #### [facility] CLIA [id number] [address] [place] [id number] Nucleated RBC (Bld) [#/Vol] 10*3/uL Normal <0.01 [facility] Comment on above: Order Comment: Speci men Type: BLOOD SPECIMEN Ordering Facility: [facility] Address: [address] [place] [address] Performed By: #### 5 8410-2 #### [facility] CLIA [id number] [address] [place] [address] [id number] Platelet mean volume (Bld) [Entitic vol] 9.3 fL Normal 9.0-12.7 [facility] Comment on above: Order Comment: Speci men Type: BLOOD SPECIMEN Ordering Facility: [facility] Address: [address] [place] [address] Performed By: #### 5 8410-2 #### [facility] CLIA [id number] [address] [place] [address] [id number] Platelets (Bld) [#/Vol] 149 10*3/uL Low 150-400 [facility] Comment on above: Order Comment: Speci men Type: BLOOD SPECIMEN Ordering Facility: [facility] Address: [address] [place] [address] Performed By: #### 5 8410-2 #### [facility] CLIA [id number] [address] [place] [address] 30034 RBC (Bld) [#/Vol] 4.59 10*6/uL Normal 4.20-6.00 [facility] Comment on above: Order Comment: Speci men Type: BLOOD SPECIMEN Ordering Facility: [facility] Address: [address] [place] [address] Performed By: #### 5 8410-2 #### [facility] CLIA [id number] [address] [place] [address] 11456 WBC (Bld) [#/Vol] 6.77 10*3/uL Normal 3.70-11.00 [facility] Comment on above: Order Comment: Speci men Type: BLOOD SPECIMEN Ordering Facility: [facility] Address: [address] [place] [address] Performed By: #### 5 8410-2 #### [facility] CLIA [id number] [address] [place] [address] 39022 TSH SerPl-aCncon 04-01-2024 TSH Qn 7.010 m[IU]/L High 0.270-4.200 [facility] Comment on above: Order Comment: Speci men Type: BLOOD SPECIMENOrdering Facility: [facility] Address: [address] [place] [address] Performed By: #### 3 016-3 ####[facility] [id number] [place] [id number] [place] Tacrolimus Bld-mCncon 2023 Tacrolimus (Bld) [Mass/Vol] 6.1 ng/mL Normal 5.0-20.0 [facility] Comment on above: Order Comment: Anitra echeverria Type: BLOOD SPECIMEN Ordering Facility: [facility] Address: [address] [place] [id number] Result Comment: Olivia vidualized target levels for [...] situation. Test performed by chemiluminescent immunoassay using [employer] i. Performed By: #### 1 9123-9, 72721-8, 2777-1 #### [facility] CLIA [id number] [address] [place] [address] 19216 CNOVon 03-18-2024 CNOV Office Visit (CAEPAV ) LINK ROSEN ([id number]) 1955 Date Time Provider Department 03/18/24 2:00 PM MELISA BRICEÑO CAEPAV During your visit today, we recorded the following information about you: Pulse Blood pressure Weight Height 94/minute 122/68 174.2 kg 2.134 m Melisa Briceño APRN.CNP 03/18/2024 4:07 PM Signed [facility] [place] Department of Cardiovascular Medicine SECTION OF ELECTROPHYSIOLOGY AND PACING OUTPATIENT VISIT DATE March 18, 2024 OUTPATIENT VISIT TYPE ESTABLISHED PRIMARY CARE PHYSICIAN: [place] [address] CHIEF COMPLAINT: Follow Up HISTORY OF PRESENT ILLNESS: Mr. Rosen is a 68 year old male, patient of Dr. Pablo and Dr. Scott, who presents today for a cardiovascular medicine follow-up visit regarding atrial fibrillation s/p EPS:PVI 6.28. He since has had recurrence of atrial fibrillation and was seen in [facility] ER. PMH: Persistent atrial fibrillation s/p EPS:PVI, reported CAD, hypertension, dyslipidemia, HFmrEF (~45%), polycystic renal disease s/p renal transplant, PAST MEDICAL HISTORY Diagnosis Date Coronary atherosclerosis of unspecified type of vessel, [place] or graft Mild 3-vessel Coronary artery disease [...] est.) Definit (more content not included)... [facility] [id number] 03-18-2024 ECG01 Ventricular Rate : 9 4 BPM QRS Duration : 108 ms Q-T Interval : 358 ms QTC Calculation(Bazett) : 447 ms Calculated R [place] : -63 degrees Calculated T [place] : 52 degrees ATRIAL FIBRILLATION LEFT ANTERIOR FASCICULAR BLOCK CANNOT EXCLUDE INFERIOR MYOCARDIAL INFARCTION (MASKED BY FASCICULAR BLOCK?) , AGE UNDETERMINED ANTEROLATERAL INFARCTION , AGE UNDETERMINED ABNORMAL ECG Confirmed by WEI PABLO MD ([id number]) on 03/20/2024 10:01:07 AM NAME : LINK ROSEN PID : [id number] : 1955 Gender : Male Race : ORD : Procedure Date : Mar 18 2024 13:51:01 Edit Date : Mar 20 2024 10:01:10 Diagnosis: ATRIAL FIBRILLATION LEFT ANTERIOR FASCICULAR BLOCK CANNOT EXCLUDE INFERIOR MYOCARDIAL INFARCTION (MASKED BY FASCICULAR BLOCK?) , AGE UNDETERMINED ANTEROLATERAL INFARCTION , AGE UNDETERMINED ABNORMAL ECG Confirmed by WEI PABLO MD ([id number]) on 03/20/2024 10:01:07 AM Test Reason : Location : 192 : AVCRD Overread By : WEI PABLO MD Edited By : WEI PABLO MD Referred By : , Acquired by : [facility] CNOVon 03-12-2024 CNOV Office Visit (LINDA ) LINK ROSEN ([id number]) 1955 M Date Time Provider Department 03/12/24 9:30 AM EMANUEL SCOTT During your visit today, we recorded the following information about you: Pulse Blood pressure Weight 108/minute 134/80 173.7 kg Emanuel Scott MD 03/12/2024 10:07 AM Signed [facility] SECTION OF REGIONAL CARDIOLOGY OUTPATIENT VISIT DATE March 12, 2024 OUTPATIENT VISIT TYPE Established PRIMARY CARE PHYSICIAN: Kathleen Sams [facility] [place] [address] REFERRING PHYSICIAN: Usman Lowry [address] [facility] [address] C/C: Follow-up for atrial fibrillation Last and initial visit with mn November 2023 HISTORY OF PRESENT ILLNESS: Mr. Rosen is a 68 year old male, seen in clinic today for follow-up for atrial fibrillation CV history reviewed, summarized and updated: Initial visit with mn in Sep 2023-noted to be in Afib of unknown duration, first diagnosis. Status post DCCV November 05, 2023. Recurrence of A-Fib post DCCV Echocardiogram October 31, 2023-LVEF mildly decreased at 45%, RV normal size and function, dilated aorta at 4.9 cm. Was unable to complete stress SPECT due to A-Fib with RVR, had rest images only. Since prior visit with mn, S/p PVI/ablation with Dr. Pablo February 2024. [...] Coronary atherosclerosis of unspecified type of vessel, [place] or graft Mild 3-vessel Coronary artery disease [...] atrial fibrillation, (more content not included)... [facility] CNPNon 03-12-2024 CNPN Telephone (CARDLO) LINK ROSEN ([id number]) 1955 M Date Time Provider Department 03/12/24 EMANUEL SCOTT During your visit today, we recorded the following information about you: Belen Caldwell 03/12/2024 10:08 AM Signed This form is used for MAIN CAMPUS APPOINTMENTS ONLY. Is this request for a [facility] [place] PET scan appointment? Yes: Commission Broker: Belen Caldwell Requesting Person (Last Name, First Name): Emanuel Scott MD Area Code + Phone/Pager: [phone] Who do we call to schedule this appointment? Patient Requesting Staff Emanuel Scott MD Area Code + Phone/Pager: [phone] PET Orders (A delay in scheduling will [...] day/next day medically urgent scans please call [phone] to expedite LVEF: LV Ejection Fraction (%) [...] Cardiac PET scan Questions: Please contact Cardiology [place] reading room at [phone] Additional comments: n/a Send requests to P CARDIAC PET MD Nevaeh Kern 03/12/2024 1:00 PM Signed Hello, We received a request for a PET Rest/Stress. Per our scheduling protocol if the LVEF is 50% or less we will need a PET CARDIAC Viability Order ([id number]). LVEF is 45%. Please place the additional [...] to ordering physician and to P PET LOGISTICS SERVICE REPRESENTATIVE with recommendations. If all recommended orders are present route to P PET LOGISTICS SERVICE REPRESENTATIVE Buddy Payne 03/16/2024 8:13 AM Signed Pt scheduled 04/08 prep sent via [employer] Allergies As of Date: 03/12/2024 (No Known Allergies) Date Reviewed: 03/12/2024 Reviewed by: Amanda Ramirez MA - Fully Assessed Reason for Visit: N[place] Pet Request [[id number]] Primary Visit Diagnosis:Heart disease [I51.9] Order(s):[place] PET/CT CARDIAC VIABILITY [[id number]] Order #: [id number] FUTURE Prescriptions as of 03/16/2024 - metoprolol [...] Status:Closed by EMANUEL SCOTT on 03/12/24 [facility] ECG COMPLETEon 03-12-2024 ECG COMPLETE Ventricular Rate : 1 08 BPM QRS Duration : 108 ms Q-T Interval : 350 ms QTC Calculation(Bazett) : 469 ms Calculated R [place] : -61 degrees Calculated T [place] : 71 degrees 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 CANNOT EXCLUDE INFERIOR MYOCARDIAL INFARCTION (MASKED BY FASCICULAR BLOCK?) , AGE UNDETERMINED ANTEROLATERAL INFARCTION , AGE UNDETERMINED ABNORMAL ECG Confirmed by JOSHUA ROONEY M.D. ([id number]) on 03/13/2024 6:22:47 AM NAME : CINTHYAMAURICIOLINK PID : [id number] : 1955 Gender : Male Race : ORD : [id number] Procedure Date : Mar 12 2024 09:35:53 [...] : JOSHUA ROONEY M.D. Referred By : Tyler Acquired by : Yury quick [facility] Abel 03-11-2024 RENEA Telephone (FVPRAD) LINK ROSEN ([id number]) 1955 M Date Time Provider Department 03/11/24 MELISA BRICEÑO During your visit today, we recorded the following information about you: Melisa Briceño APRN.CNP 03/11/2024 12:48 PM Signed Received call from [...] Amiodarone for short term therapy to facilitate church and maintenance of sinus rhythm during ~3 month blanking period s/p PVI and he agreed that such would be appropriate provided that we discuss this with his nephology transplant team to ensure there will be no significant interaction with Cellcept and tacrolimus. I will reach out ot this team and obtain their opinion prior to starting. Melisa Briceño, RESTAURANT HOURLY TEAM MEMBER.STEM DRYER MAINTAINER Allergies As of Date: 03/11/2024 (No Known Allergies) Date Reviewed: 03/06/2024 Reviewed by: Zhanna Lozada RN - Fully Assessed Reason for Visit: [...] Encounter Status:Closed by MELISA BRICEÑO on 03/18/24 [facility] CNDSon 03-06-2024 [facility] HNO ID: [id number] Author: ALEJANDRA ROLLINS APRN.STEM DRYER MAINTAINER Service: Electrophysiology Author Type: Nurse Practitioner Type: Discharge Summary Filed: 03/06/2024 16:09 Note Text: Attestation signed by Wei Pablo MD at 03/10/2024 8:24 AM [facility] STAFF PHYSICIAN NOTE OF PERSONAL INVOLVEMENT IN [...] 68 year old male who lives in [place] with HTN, Polycystic kidney s/p renal transplant. [...] please conta (more content not included)... [facility] ANES POSTPROC EVALon 024 ANES POSTPROC EVAL HNO ID: [id number] Author: MACRINA SCHULTE MD Service: Anesthesiology Author [...] March 05, 2024 TIME: 5:12 PM CSN: [id number] [facility] ANES PRE-OPon 03-05-2024 ANES PRE-OP HNO ID: [id number] Author: MACRINA SCHULTE MD Service: Anesthesiology Author [...] and consent discussed: yes. Patient / Responsible Democrat agrees to proceed: yes Patient / Surrogate [...] March 05, 2024 TIME: 12:02 PM CSN: [id number] [facility] ECG COMPLETEon 03-05-2024 ECG COMPLETE Ventricular Rate : 8 8 BPM Atrial Rate : 89 BPM P-R Interval : 216 ms QRS Duration : 117 ms Q-T Interval : 379 ms QTC Calculation(Bazett) : 459 ms Calculated P [place] : 25 degrees Calculated R [place] : -61 degrees Calculated T [place] : -8 degrees Sinus rhythm Atrial premature complexes Borderline prolonged LA interval Incomplete left bundle branch block Consider anterior infarct Abnormal ECG Confirmed by JOSHUA ROONEY M.D. ([id number]) on 03/09/2024 12:56:20 PM NAME : LINK ROSEN PID : [id number] : 1955 Gender : Male Race : ORD : [id number] Procedure Date : Mar 05 2024 17:38:48 Edit Date : Mar 09 2024 12:56:23 Diagnosis: Sinus rhythm Atrial premature complexes Borderline prolonged LA interval Incomplete left bundle branch block Consider anterior infarct Abnormal ECG Confirmed by JOSHUA ROONEY M.D. ([id number]) on 03/09/2024 12:56:20 PM Test Reason : Post OP Location : 400 : FVEKG POOL Overread By : JOSHUA ROONEY M.D. Edited By : JOSHUA ROONEY M.D. Referred By : , Acquired by : [id number], [facility] ECG COMPLETE Ventricular Rate : 1 34 BPM Atrial Rate : 143 BPM P-R Interval : 136 ms QRS Duration : 114 ms Q-T Interval : 340 ms QTC Calculation(Bazett) : 508 ms Calculated R [place] : -62 degrees Calculated T [place] : 97 degrees Atrial fibrillation Incomplete left bundle branch block Consider anterior infarct Prolonged QT interval Baseline wander in lead(s) II,III,aVF Abnormal ECG Confirmed by EDI GALEANO MD ([id number]) on 03/08/2024 5:48:09 PM NAME : LINK ROSEN PID : [id number] : 1955 Gender : Male Race : ORD : [id number] Procedure Date : Mar 05 2024 11:41:16 Edit Date : Mar 08 2024 17:48:10 Diagnosis: Atrial fibrillation Incomplete left bundle branch block Consider anterior infarct Prolonged QT interval Baseline wander in lead(s) II,III,aVF Abnormal ECG Confirmed by EDI GALEANO MD ([id number]) on 03/08/2024 5:48:09 PM Test Reason : Pre OP Location : 400 : [facility] 69 Overread By : EDI GALEANO MD Edited By : EDI GALEANO MD Referred By : , Acquired by : , [facility] HISTORY PHYSICALon HISTORY PHYSICAL HNO ID: [id number] Author: YANA CARRINGTON APRN.STEM DRYER MAINTAINER Service: Cardiovascular Medicine Author Type: Nurse Practitioner [...] Coronary atherosclerosis of unspecified type of vessel, [place] or graft Mild 3-vessel Coronary artery disease [...] daily, Disp: 90 tablet, Rfl: , 03/04/2024 gabapentin (NEURONTIN) 300 mg capsule, Take [...] 03/02/24 0929 (more content not included)... [facility] NURSING PROGon 03-05-2024 NURSING PROG HNO ID: [id number] Author: YESICA PARDO RN Service: Nursing Author [...] tele,safety reviewed, will cont to monitor [facility] NURSING PROG HNO ID: [id number] Author: FLORY ARAGON, RN Service: Nursing Author Type: Registered Nurse Type: Nursing Progress Note Filed: 03/05/2024 19:05 Note Text: ~[id number] Pt arrived on unit from pre/post, pt [...] report given to next shift RN. [facility] NURSING PROG HNO ID: [id number] Author: MATIAS METZGER, LISE Service: Nursing Author [...] Teach back method used. [employer] and xmnfau-ob-teu Rosalind at bedside. Call light in reach. 1651 Patient tolerated food, able to swallow without any difficulty. 1730 Report given to Dajuan LEZAMA ([facility] 319) 1750 Pt ambulated to the restroom with standby staff assistance, steady gait. Denies any dizziness/lightheadedness. Site remains free of bleeding and hematoma with movement AND ambulation. 1800 Patient transferred to [facility] 319 via wheelchair in stable condition. All belongings returned. Reviewed site at the bedside with Roxi LEZAMA. Left groin had quarter size oozing, no hematoma 5lbs sand applied. Right groin no signs of bleeding or hematoma at site, bilateral DP pulses palpable, with good capillary refill,warm. This note was completed by: Matias Metzger [facility] TYPE + SCREENon 03-05-2024 ABO AB [facility] Comment on above: Order Comment: Speci men Type: BLOOD SPECIMENOrdering Facility: [facility] Address: [address] [place] [address] Performed By: #### T SCR ####[facility] [id number] [address] STATES OF [facility] HISTORICAL AB SCR STATUS Negative [facility] Comment on above: Order Comment: Speci men Type: BLOOD SPECIMENOrdering Facility: [facility] Address: [address] [place] [address] Performed By: #### T SCR ####[facility] [id number] [place] [id number] [facility] [place] Rh Nom (Bld) Positive [facility] Comment on above: Order Comment: Speci men Type: BLOOD SPECIMENOrdering Facility: [facility] Address: [address] [place] [address] Performed By: #### T SCR ####[facility] [id number] [place] [address] [place] TYPE AND SCREEN EXPIRATION 03/08/2024 23:59 [facility] Comment on above: Order Comment: Speci men Type: BLOOD SPECIMENOrdering Facility: [facility] Address: [address] [place] [address] Performed By: #### T SCR ####[facility] [id number] [place] [address] [place] UA DIP, URINE (POC)on 2022 BILIRUBIN UA (POCT) Negative Negative [facility] CLARITY UA (POCT) Clear [facility] nd [facility] COLOR UA (POCT) Yellow [facility] GLUCOSE UA (POCT) Negative Negative mg/dL [facility] HEMOGLOBIN/BLOOD UA (POCT) Negative Negative [facility] KETONE UA (POCT) Negative Negative mg/dL [facility] LEUKOCYTES UA (POCT) Negative Negative [facility] NITRITE UA (POCT) Negative Negative [facility] nd [facility] PH UA (POCT) 7.5 4.5 - 8.0 [facility] Protein Ql (U) Negative Negative mg/dL [facility] SPECIFIC GRAVITY UA (POCT) 1.020 1.005 - 1.030 [facility] UROBILINOGEN UA (POCT) 0.2 E.U./dL Normal E.U./dL [facility] US TRANSRECTAL PROSTATE (JOSE S) (POC) GUKI USE ONLYon 10-17-2022 [facility] URINALYSIS, REFLEX MICROSCOP ICon 09-16-2022 Bilirubin Ql (U) Negative Negative [facility] Clarity (Unsp spec) Clear Clear [facility] Color (U) Yellow Yellow [facility] Glucose Test strip (U) [Mass/Vol] Negative Trace, Negative [facility] Hemoglobin Ql (U) Negative Negative, Trace [facility] Ketones Ql (U) Negative Negative, Trace [facility] Leukocyte esterase Test strip Ql (U) Negative Negative, 25 Yandy/mL [facility] Nitrite Ql (U) Negative Negative [facility] pH (U) 6.0 [pH] 5.0 - 8.0 [facility] Protein (U) [Mass/Vol] Trace Trace, Negative [facility] Specific gravity (U) [Rel density] 1.029 1.005 - 1.030 [facility] Urobilinogen Ql (U) 1+ Abnormal Negative [facility] URINALYSIS, REFLEX MICROSCOP ICon 07-01-2022 Bilirubin Ql (U) Negative Negative [facility] Clarity (Unsp spec) Clear Clear [facility] Color (U) Yellow Yellow [facility] Glucose Test strip (U) [Mass/Vol] Negative Negative [facility] Hemoglobin Ql (U) Negative Negative [facility] Ketones Ql (U) Negative Negative [facility] Leukocyte esterase Test strip Ql (U) Negative Negative [facility] Nitrite Ql (U) Negative Negative [facility] pH (U) 6.5 [pH] 5.0 - 8.0 [facility] Protein (U) [Mass/Vol] Negative Negative [facility] Specific gravity (U) [Rel density] 1.016 1.005 - 1.030 [facility] Urobilinogen Ql (U) Negative Negative [facility] ISOPSA ASSAY FOR UROLOGY USE ONLYon 02-08-2022 INTERP IsoPSA test was not performed, as the test has not been validated in patients with tPSA <4.0ng/mL. [facility] ISOPSA 0 <6.1 [facility] TPSA 3.590 0-<4 [facility] XR ankle LT min 3V*on 2020 XR ankle LT min 3V* [facility] [place] [address] XRay Report Signed Patient: Link Rosen MR#: [id number] : 1955 Acct:[id number] Age/Sex: 65 / M ADM Date: 02/06/21 Loc: [facility] Room: Type: [facility] Attending Dr: Chrissy Babin DPM, MS Ordering Provider: Chrissy Babin DPM, MS Date of Service: 02/06/21 XR/XR foot LT min 3V*: M79.672 ([id number]) XR/XR ankle LT min 3V*: M25.572 Copies [...] Gama Salas M.D.02/06/2021 1:52 PM Dictation Location: [place] [address] Transcribed By: [facility] 02/06/21 1352 Dictated By: Gama Salas DO 02/06/21 1349 Signed By: 02/06/21 1352 [facility] Vital Signs Date Time Vital Sign Value Performing Clinician Faci rosa 01-24-2025 14:56-0400 Body mass index (BMI) [Ratio] 36.93 kg/m2 Emanuel Scott MD Work Phone: [facility] 01-24-2025 14:56-0400 Body weight 168.1 kg Emanuel Scott MD Work Phone: [facility] 01-24-2025 14:56-0400 Diastolic blood pressure 76 mm[Hg] Emanuel Scott MD Work Phone: [facility] 01-24-2025 14:56-0400 Heart rate 64 /min Emanuel Scott MD Work Phone: [facility] 01-24-2025 14:56-0400 Systolic blood pressure 116 mm[Hg] Emanuel Scott MD Work Phone: [facility] 11-25-2024 13:29-0400 Body mass index (BMI) [Ratio] 36.88 kg/m2 Wei Pablo MD Work Phone: [facility] 11-25-2024 13:29-0400 Body weight 167.9 kg Wei Pablo MD Work Phone: [facility] 11-25-2024 13:29-0400 Diastolic blood pressure 82 mm[Hg] Wei Pablo MD Work Phone: [facility] 11-25-2024 13:29-0400 Heart rate 80 /min Wei Pablo MD Work Phone: [facility] 11-25-2024 13:29-0400 Systolic blood pressure 132 mm[Hg] Wei Pablo MD Work Phone: [facility] 11-05-2024 13:00-0500 Body mass index (BMI) [Ratio] 36.8 kg/m2 Melisa Briceño RESTAURANT HOURLY TEAM MEMBER.STEM DRYER MAINTAINER Work Phone: [facility] 11-05-2024 13:00-0500 Body temperature 97.81 [degF] Melisa Briceño RESTAURANT HOURLY TEAM MEMBER.STEM DRYER MAINTAINER Work Phone: [facility] 11-05-2024 13:00-0500 Body weight 167.5 kg Melisa Briceño RESTAURANT HOURLY TEAM MEMBER.STEM DRYER MAINTAINER Work Phone: [facility] 11-05-2024 13:00-0500 Diastolic blood pressure 72 mm[Hg] Melisa Briceño RESTAURANT HOURLY TEAM MEMBER.STEM DRYER MAINTAINER Work Phone: [facility] 11-05-2024 13:00-0500 Heart rate 71 /min Melisa Briceño RESTAURANT HOURLY TEAM MEMBER.STEM DRYER MAINTAINER Work Phone: [facility] 11-05-2024 13:00-0500 Respiratory rate 22 /min Melisa Briceño RESTAURANT HOURLY TEAM MEMBER.STEM DRYER MAINTAINER Work Phone: [facility] 11-05-2024 13:00-0500 SaO2% (BldA) [Mass fraction] 99 % Melisa Briceño RESTAURANT HOURLY TEAM MEMBER.STEM DRYER MAINTAINER Work Phone: [facility] 11-05-2024 13:00-0500 Systolic blood pressure 124 mm[Hg] Melisa Briceño RESTAURANT HOURLY TEAM MEMBER.STEM DRYER MAINTAINER Work Phone: [facility] 07-27-2024 13:20-0500 Body mass index (BMI) [Ratio] 37.7 kg/m2 Emanuel Scott MD Work Phone: [facility] 07-27-2024 13:20-0500 Body weight 171.6 kg Emanuel Scott MD Work Phone: [facility] 07-27-2024 13:20-0500 Diastolic blood pressure 74 mm[Hg] Emanuel Scott MD Work Phone: [facility] 07-27-2024 13:20-0500 Heart rate 78 /min Emanuel Scott MD Work Phone: [facility] 07-27-2024 13:20-0500 Systolic blood pressure 126 mm[Hg] Emanuel Scott MD Work Phone: [facility] 07-06-2024 13:41-0400 Body height 213.4 cm Nhi Oneil MD Work Phone: [facility] 07-06-2024 13:41-0400 Body mass index (BMI) [Ratio] 37.72 kg/m2 Nhi Oneil MD Work Phone: [facility] 07-06-2024 13:41-0400 Body weight 171.7 kg Nhi Oneil MD Work Phone: [facility] 07-06-2024 13:41-0400 Diastolic blood pressure 75 mm[Hg] Nhi Oneil MD Work Phone: [facility] 07-06-2024 13:41-0400 Heart rate 76 /min Nhi Oneil MD Work Phone: [facility] 07-06-2024 13:41-0400 Systolic blood pressure 117 mm[Hg] Nhi Oneil MD Work Phone: [facility] 03-18-2024 13:48-0400 Body height 213.4 cm Melisa Briceño RESTAURANT HOURLY TEAM MEMBER.STEM DRYER MAINTAINER Work Phone: [facility] 03-18-2024 13:48-0400 Body mass index (BMI) [Ratio] 38.27 kg/m2 Melisa Briceño RESTAURANT HOURLY TEAM MEMBER.STEM DRYER MAINTAINER Work Phone: [facility] 03-18-2024 13:48-0400 Body weight 174.2 kg Melisa Briceño RESTAURANT HOURLY TEAM MEMBER.STEM DRYER MAINTAINER Work Phone: [facility] 03-18-2024 13:48-0400 Diastolic blood pressure 68 mm[Hg] Melisa Briceño RESTAURANT HOURLY TEAM MEMBER.STEM DRYER MAINTAINER Work Phone: [facility] 03-18-2024 13:48-0400 Heart rate 94 /min Melisa Briceño RESTAURANT HOURLY TEAM MEMBER.STEM DRYER MAINTAINER Work Phone: [facility] 03-18-2024 13:48-0400 Systolic blood pressure 122 mm[Hg] Melisa Briceño RESTAURANT HOURLY TEAM MEMBER.STEM DRYER MAINTAINER Work Phone: [facility] 03-12-2024 09:32-0400 Body mass index (BMI) [Ratio] 38.16 kg/m2 Emanuel Scott MD Work Phone: [facility] 03-12-2024 09:32-0400 Body weight 173.7 kg Emanuel Scott MD Work Phone: [facility] 03-12-2024 09:32-0400 Diastolic blood pressure 80 mm[Hg] Emanuel Scott MD Work Phone: [facility] 03-12-2024 09:32-0400 Heart rate 108 /min Emanuel Scott MD Work Phone: [facility] 03-12-2024 09:32-0400 Systolic blood pressure 134 mm[Hg] Emanuel Scott MD Work Phone: [facility] 01-15-2024 13:24-0400 Body mass index (BMI) [Ratio] 38.62 kg/m2 Wei Pablo MD Work Phone: [facility] 01-15-2024 13:24-0400 Body weight 175.2 kg Wei Pablo MD Work Phone: [facility] 01-15-2024 13:24-0400 Diastolic blood pressure 82 mm[Hg] Wei Pablo MD Work Phone: [facility] 01-15-2024 13:24-0400 Heart rate 96 /min Wei Pablo MD Work Phone: [facility] 01-15-2024 13:24-0400 Systolic blood pressure 126 mm[Hg] Wei Pablo MD Work Phone: [facility] 11-10-2023 09:22-0500 Body weight 173.6 kg Emanuel Scott MD Work Phone: [facility] 11-10-2023 09:22-0500 Diastolic blood pressure 80 mm[Hg] Emanuel Scott MD Work Phone: [facility] 11-10-2023 09:22-0500 Heart rate 84 /min Emanuel Scott MD Work Phone: [facility] 11-10-2023 09:22-0500 Systolic blood pressure 130 mm[Hg] Emanuel Scott MD Work Phone: [facility] 06-30-2023 11:10-0400 Body height 213.4 cm Usman Lowry RESTAURANT HOURLY TEAM MEMBER.STEM DRYER MAINTAINER Work Phone: [facility] 06-30-2023 11:10-0400 Body temperature 97.81 [degF] Usman Lowry RESTAURANT HOURLY TEAM MEMBER.STEM DRYER MAINTAINER Work Phone: [facility] 06-30-2023 11:10-0400 Body weight 176.45 kg Usman Lowry RESTAURANT HOU[employer]Y TEAM MEMBER.STEM DRYER MAINTAINER Work Phone: [facility] 06-30-2023 11:10-0400 Diastolic blood pressure 80 mm[Hg] Usman Lowry RESTAURANT HOURLY TEAM MEMBER.STEM DRYER MAINTAINER Work Phone: [facility] 06-30-2023 11:10-0400 Heart rate 91 /min Usman Lowry RESTAURANT HOURLY TEAM MEMBER.STEM DRYER MAINTAINER Work Phone: [facility] 06-30-2023 11:10-0400 Systolic blood pressure 127 mm[Hg] Usman Lowry RESTAURANT HOU[employer]Y TEAM MEMBER.STEM DRYER MAINTAINER Work Phone: [facility] Encounters Encounter Date Encounter Type Care Provider Facility Start: 03-30-2025 End: 03-30-2025 ambulatory Emanuel Scott MD Work Phone: Cardiology Comment on above: alessio Start: 03-04-2025 End: 03-04-2025 ambulatory USMAN LOWRY Facility:[facility] Start: 01-24-2025 End: 01-24-2025 Patient encounter procedure Lab Head [facility] Alyce Work Phone: Cardiology Comment on above: Cardiomyopathy, unsp ecified type (HCC); Aneurysm of ascending aorta without rupture PAF (paroxysmal atri al fibrillation) (HCC) (Primary Dx); Other cardiomyopathy (HCC); Aneurysm of ascending aorta without rupture; S/P ablation of atrial fibrillation Start: 01-24-2025 End: 01-24-2025 ambulatory EMANUEL SCOTT Facility:[facility] Start: 01-16-2025 End: 01-21-2025 Refill Usman Lowry RESTAURANT HOU[employer] TEAM MEMBER.STEM DRYER MAINTAINER Work Phone: [facility] Comment on above: Refill Request Start: 12-13-2024 End: 12-13-2024 Refill Emanuel Scott MD Work Phone: Cardiology Comment on above: Refill Request Start: 11-30-2024 End: 11-30-2024 ambulatory USMAN LOWRY Facility:[facility] Start: 11-25-2024 End: 11-25-2024 ambulatory WEI PABLO Facility:[facility] Start: 11-25-2024 End: 11-25-2024 Patient encounter procedure Wei Pablo MD Work Phone: Cardiology Comment on above: Atrial fibrillation, persistent (HCC) (Primary Dx) Start: 11-11-2024 End: 11-15-2024 Refill Usman العراقيd RESTAURANT HOURLY TEAM MEMBER.STEM DRYER MAINTAINER Work Phone: [facility] Comment on above: Refill Request Start: 11-05-2024 End: 11-05-2024 ambulatory MELISA BRICEÑO Facility:[facility] Start: 11-05-2024 End: 11-05-2024 Patient encounter procedure Melisa Briceño RESTAURANT HOURLY TEAM MEMBER.STEM DRYER MAINTAINER Work Phone: Cardiology Comment on above: Atrial fibrillation, persistent (HCC) (Primary Dx); Current use of shelter anticoagulation; S/P ablation of atrial fibrillation; Primary hypertension; NICM (nonischemic cardiomyopathy) (HCC) Start: 10-18-2024 End: 10-22-2024 Refill Usman L Lard RESTAURANT HOURLY TEAM MEMBER.STEM DRYER MAINTAINER Work Phone: [facility] Comment on above: Refill Request Start: 09-10-2024 End: 09-10-2024 ambulatory KATHLEEN SANDRA SAMS Facility:[facility] Start: 08-30-2024 End: 08-30-2024 Telephone encounter Melisa Briceño APRNKarlaSEAN Work Phone: [facility] Adult Comment on above: Results Start: 08-30-2024 End: 08-30-2024 ambulatory USMAN LOWRY Facility:[facility] Start: 08-27-2024 End: 08-27-2024 Telephone encounter Wei Pablo MD Work Phone: Cardiology Start: 08-26-2024 End: 08-26-2024 Orders Only Nhi Oneil MD Work Phone: [facility] Comment on above: Hypomagnesemia (Prim negro Dx); Kidney replaced by transplant Start: 08-25-2024 End: 08-25-2024 Telephone encounter Wei Pablo MD Work Phone: Cardiology Start: 07-27-2024 End: 07-27-2024 ambulatory EMANUEL SCOTT Facility:[facility] Start: 07-27-2024 End: 07-27-2024 Patient encounter procedure Emanuel Scott MD Work Phone: Cardiology Comment on above: Cardiomyopathy, unsp ecified type (HCC) (Primary Dx); 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); S/P ablation of atrial fibrillation; PAF (paroxysmal atrial fibrillation) (HCC); On continuous oral anticoagulation Start: 07-06-2024 End: 07-06-2024 Patient encounter procedure Nhi Oneil MD Work Phone: [facility] Comment on above: Need for influenza v accination (Primary Dx); Need for pneumocystis prophylaxis; Kidney replaced by transplant; Persistent atrial fibrillation (HCC); 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) Start: 07-06-2024 End: 07-09-2024 ambulatory Nhi Oneil MD Work Phone: [facility] Start: 06-25-2024 End: 06-25-2024 ambulatory USMAN LOWRY Facility:[facility] Start: 06-25-2024 End: 06-25-2024 Nursing evaluation of patient and report Ma Nurse Musa Agarwal Work Phone: Hematology/Oncology Comment on above: Irregular heartbeat Start: 06-17-2024 End: 06-18-2024 Refill Usman Lowry [employer]AUR[employer] HOU[employer] TEAM MEMBER.STEM DRYER MAINTAINER Work Phone: [facility] Comment on above: Refill Request Start: 06-01-2024 End: 06-01-2024 ambulatory USMAN LOWRY Facility:[facility] Start: 05-19-2024 End: 05-24-2024 E-mail encounter from caregiver Wei Pablo MD Work Phone: Cardiology Start: 05-19-2024 End: 05-24-2024 Patient encounter procedure Wei Pablo MD Work Phone: Cardiology Comment on above: Appointment Request Start: 05-13-2024 End: 05-16-2024 ambulatory Emanuel Scott MD Work Phone: Cardiology Comment on above: metroprolol Start: 04-09-2024 Refill Emanuel gonzlaez MD Work Phone: Cardiology Comment on above: Refill Request Start: 04-01-2024 End: 04-01-2024 ambulatory WEI PABLO Facility:[facility] Start: 03-18-2024 End: 03-18-2024 ambulatory MELISA BRICEÑO Facility:[facility] Start: 03-18-2024 End: 03-18-2024 Patient encounter procedure Melisa Briceño RESTAURANT HOU[employer] TEAM MEMBER.STEM DRYER MAINTAINER Work Phone: Cardiology Comment on above: Atrial fibrillation, persistent (HCC) (Primary Dx); S/P ablation of atrial fibrillation; S/p cadaver renal transplant; Current use of shelter anticoagulation; Primary hypertension Start: 03-16-2024 E-mail encounter fro m caregiver Usman Lowry APRN.STEM DRYER MAINTAINER Work Phone: [facility] Start: 03-16-2024 Follow-up encounter Usman Lowry APRN.STEM DRYER MAINTAINER Work Phone: [facility] Comment on above: Follow up Start: 03-12-2024 Telephone encounter Emanuel tomlinson MD Work Phone: Cardiology Comment on above: Nm Pet Request Start: 03-12-2024 End: 03-12-2024 ambulatory EMANUEL SCOTT Facility:[facility] Start: 03-12-2024 End: 03-12-2024 Patient encounter procedure Emanuel Scott MD Work Phone: Cardiology Comment on above: S/P ablation of atri al fibrillation (Primary Dx); Persistent atrial fibrillation (HCC); Abnormal EKG; Cardiomyopathy, unspecified type (HCC); 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) Start: 03-11-2024 Telephone encounter Melisa Barnes res, APRN.STEM DRYER MAINTAINER Work Phone: [facility] Adult Comment on above: Clinical Update Start: 03-05-2024 End: 03-06-2024 [facility] Start: 01-21-2024 Orders Only Wei Pablo MD Work Phone: Cardiology Comment on above: AF (paroxysmal atria l fibrillation) (HCC) (Primary Dx) Start: 01-15-2024 End: 01-15-2024 Patient encounter procedure Wei Pablo MD Work Phone: Cardiology Comment on above: AF (paroxysmal atria l fibrillation) (HCC) (Primary Dx) Start: 12-26-2023 End: 12-26-2023 Subsequent hospital visit by physician Injection [facility] Rej Work Phone: Nuclear Medicine Comment on above: Arrived Persistent atrial fi brillation (HCC) [I48.19] Start: 11-26-2023 Refill Usman sierra [employer] TEAM MEMBER.STEM DRYER MAINTAINER Work Phone: [facility] Comment on above: Refill Request Start: 11-20-2023 Refill Usman sierra [employer]AURANT HOURL[employer] TEAM MEMBER.STEM DRYER MAINTAINER Work Phone: [facility] Comment on above: Refill Request Start: 11-10-2023 End: 11-10-2023 Patient encounter procedure Emanuel Scott MD Work Phone: Cardiology Comment on above: Persistent atrial fi brillation (HCC) (Primary Dx); Abnormal EKG; Encounter for lipid screening for cardiovascular disease; Cardiomyopathy, unspecified type (HCC); 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) Start: 07-14-2023 ambulatory Usman sierra RESTAURANT HOURLY TEAM MEMBER.STEM DRYER MAINTAINER Work Phone: [facility] Comment on above: afib Start: 07-10-2023 ambulatory Usman sierra RESTAURANT HOURLY TEAM MEMBER.STEM DRYER MAINTAINER Work Phone: [facility] Comment on above: ecg Start: 07-01-2023 End: 07-01-2023 Nursing evaluation of patient and report Ma Nurse Musa Agarwal Work Phone: Hematology/Oncology Comment on above: Irregular heartbeat (Primary Dx); Polycystic kidney disease Start: 07-01-2023 Patient encounter procedure [facility] Department Start: 06-30-2023 End: 06-30-2023 Patient encounter procedure Usman Lowry RESTAURANT HOURLY TEAM MEMBER.STEM DRYER MAINTAINER Work Phone: [facility] Comment on above: Kidney replaced by t ransplant (Primary Dx); Hypophosphatemia; Hypomagnesemia; Irregular heartbeat; Aftercare following organ transplant Start: 06-17-2023 Refill Usman sierra RESTAURANT HOURLY TEAM MEMBER.STEM DRYER MAINTAINER Work Phone: [facility] Comment on above: Refill Request Start: 12-03-2022 ambulatory Usman sierra [employer]AURANT HOURLY TEAM MEMBER.STEM DRYER MAINTAINER Work Phone: [facility] Comment on above: meds Start: 11-05-2022 End: 11-05-2022 ambulatory Giorgio Burks MD Work Phone: Urology Comment on above: Elevated PSA (Primar y Dx) Start: 11-05-2022 End: 11-05-2022 Telemedicine consultation with patient Giorgio Burks MD Work Phone: [facility] Start: 10-17-2022 End: 10-17-2022 Patient encounter procedure Giorgio Burks MD Work Phone: Urology Comment on above: Elevated PSA (Primar y Dx) Start: 09-19-2022 Orders Only Kristina Leon rs RESTAURANT HOURLY TEAM MEMBER.STEM DRYER MAINTAINER Work Phone: Urology Comment on above: Encounter for observ ation for other suspected diseases and conditions ruled out (Primary Dx) 09/03/23 labs Start: 09-16-2022 ambulatory Kristina Quintero rs RESTAURANT HOURLY TEAM MEMBER.STEM DRYER MAINTAINER Work Phone: Urology Start: 09-16-2022 End: 09-16-2022 Patient encounter procedure Kristina Whitaker RESTAURANT HOURLY TEAM MEMBER.STEM DRYER MAINTAINER Work Phone: Urology Comment on above: Elevated PSA (Primar y Dx) Start: 07-01-2022 ambulatory Usman sierra RESTAURANT HOURLY TEAM MEMBER.STEM DRYER MAINTAINER Work Phone: [facility] Start: 04-20-2022 End: 04-20-2022 ambulatory LANCE GLASGOW Facility: Start: 03-18-2022 Get Medical Advice Usman Lowry RESTAURANT HOURLY TEAM MEMBER.STEM DRYER MAINTAINER Work Phone: [facility] Comment on above: refills Start: 03-16-2022 Refill Usman sierra RESTAURANT HOURLY TEAM MEMBER.STEM DRYER MAINTAINER Work Phone: [facility] Comment on above: Refill Request Start: 02-26-2022 End: 02-26-2022 ambulatory Giorgio Burks MD Work Phone: Urology Comment on above: Elevated PSA (Primar y Dx) Start: 02-26-2022 End: 02-26-2022 Telemedicine consultation with patient Giorgio Burks MD Work Phone: [facility] Start: 02-07-2022 Orders Only Usman tian PA Work Phone: Urology Start: 01-31-2022 End: 01-31-2022 ambulatory Giorgio Burks MD Work Phone: Urology Comment on above: Elevated prostate sp ecific antigen (PSA) (Primary Dx); Elevated PSA Start: 01-31-2022 End: 01-31-2022 Telemedicine consultation with patient Giorgio Burks MD Work Phone: [facility] Start: 01-30-2022 End: 01-31-2022 ambulatory [facility] Facility: Start: 07-26-2021 End: 07-27-2021 ambulatory [facility] Facility: Procedures Date Procedure Procedure Detail Performing [...] Comment: Speci men Type: BLOOD SPECIMENOrdering Facility: [facility] Address: [address] [place] [address] Performed By: #### T SCR ####[facility] [id number] [place] [address] [place] Start: 01-15-2024 Ecg [...] - S ritu or Plasma Usman Lard RESTAURANT HOURLY TEAM MEMBER.STEM DRYER MAINTAINER Work Phone: Start: 05-08-2009 History of renal transplant Kidney replaced by transplant Usman LYNN Work Phone: History of renal transplant S/p cadaver renal transplant Usman Patricia PA Work Phone: History of renal transplant Kidney replaced by transplant Usman L Lard RESTAURANT HOURLY TEAM MEMBER.STEM DRYER MAINTAINER Work Phone: History of renal transplant Kidney replaced by transplant Usman L Lard RESTAURANT HOURLY TEAM MEMBER.STEM DRYER MAINTAINER Work Phone: History of renal transplant Kidney replaced by transplant Usman L Lard RESTAURANT HOURLY TEAM MEMBER.STEM DRYER MAINTAINER Work Phone: History of renal transplant Kidney replaced by transplant Usman L Lard RESTAURANT HOURLY TEAM MEMBER.STEM DRYER MAINTAINER Work Phone: History of renal transplant Kidney replaced by transplant Usman L Lard RESTAURANT HOURLY TEAM MEMBER.STEM DRYER MAINTAINER Work Phone: History of renal transplant Kidney replaced by transplant Usman L Lard RESTAURANT HOURLY TEAM MEMBER.STEM DRYER MAINTAINER Work Phone: History of renal transplant Kidney replaced by transplant Usman L Lard RESTAURANT HOURLY TEAM MEMBER.STEM DRYER MAINTAINER Work Phone: History of renal transplant Kidney replaced by transplant Usman L Lard RESTAURANT HOURLY TEAM MEMBER.STEM DRYER MAINTAINER Work Phone: History of renal transplant S/p cadaver renal transplant Melisa Briceño RESTAURANT HOURLY TEAM MEMBER.STEM DRYER MAINTAINER Work Phone: History of renal transplant Kidney replaced by transplant Usman L Lard RESTAURANT HOURLY TEAM MEMBER.STEM DRYER MAINTAINER Work Phone: History of renal transplant Kidney replaced by transplant Nhi Oneil MD Work Phone: History of renal transplant Kidney replaced by transplant Nhi Oneil MD Work Phone: History of renal transplant Kidney replaced by transplant Usman L Lard RESTAURANT HOURLY TEAM MEMBER.STEM DRYER MAINTAINER Work Phone: History of renal transplant S/p cadaver renal transplant Usman Lard RESTAURANT HOURLY TEAM MEMBER.STEM DRYER MAINTAINER Work Phone: History of renal transplant Kidney replaced by transplant Usman L Lard RESTAURANT HOURLY TEAM MEMBER.STEM DRYER MAINTAINER Work Phone: History of renal transplant 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) Usman Lowry APRN.STEM DRYER MAINTAINER Work Phone: Plan of Treatment Date Care Activity Detail Author Start: 03-04-2030 Prostate specific antigen measurement Prostate Cancer Screening Discussion [facility] Start: 12-01-2028 Lipid panel Lipid Screening [facility] Start: 04-29-2028 Prostate Cancer Screening Discussion Prostate Cancer Screening Discussion [facility] Start: 04-29-2028 Prostate specific antigen measurement Prostate Cancer Screening Discussion [facility] Start: 03-04-2028 Diabetes Screening Diabetes Screening [facility] Start: 12-01-2027 Diabetes Screening Diabetes Screening [facility] Start: 09-03-2027 PROSTATE CANCER SCREENING DISCUSSION PROSTATE CANCER SCREENING DISCUSSION [facility] Start: 08-30-2027 Diabetes Screening Diabetes Screening [facility] Start: 06-01-2027 Diabetes Screening Diabetes Screening [facility] Start: 04-01-2027 Diabetes Screening Diabetes Screening [facility] Start: 03-02-2027 Diabetes Screening Diabetes Screening [facility] Start: 01-16-2027 PROSTATE CANCER SCREENING DISCUSSION PROSTATE CANCER SCREENING DISCUSSION [facility] Start: 12-01-2026 Diabetes Screening Diabetes Screening [facility] Start: 11-03-2026 Diabetes Screening Diabetes Screening [facility] Start: 06-03-2026 Diabetes Screening Diabetes Screening [facility] Start: 03-06-2026 Lipid 1996 panel - Serum or Plasma Lipid Screening [facility] Start: 03-06-2026 Lipid panel Lipid Screening [facility] Start: 03-06-2026 LIPID SCREEN LIPID SCREEN [facility] Start: 03-04-2026 Creatinine measurement Serum Creatinine [facility] Start: 01-24-2026 BP Controlled (<130/80) BP Controlled (<130/80) [facility] Start: 12-02-2025 DIABETES SCREEN DIABETES SCREEN [facility] Start: 11-30-2025 Creatinine measurement Serum Creatinine [facility] Start: 11-05-2025 BP Controlled (<130/80) BP Controlled (<130/80) [facility] Start: 09-03-2025 DIABETES SCREEN DIABETES SCREEN [facility] Start: 08-30-2025 Creatinine measurement Serum Creatinine [facility] Start: 08-26-2025 End: 08-26-2025 Patient encounter procedure 08/26/2025 1:00 PM EST Office Visit Cardiology [address] [facility] [place] [address] Emanuel Scott MD [address] [facility] [place] [address] Return in about 7 months (around 08/26/2025). Cardiology Comment on above: Return in about 7 months (around 025). Start: 06-03-2025 End: 06-03-2025 Patient encounter procedure 06/03/2025 9:30 AM EDT Office Visit [facility] [address] [place] [address] lab [facility] Comment on above: lab Start: 06-01-2025 Complete blood count Hemoglobin/Hematocrit [facility] Start: 06-01-2025 Creatinine measurement Serum Creatinine [facility] Start: 05-09-2025 Influenza [facility] Start: 04-01-2025 Complete blood count Hemoglobin/Hematocrit [facility] Start: 04-01-2025 Creatinine measurement Serum Creatinine [facility] Start: 03-02-2025 Complete blood count Hemoglobin/Hematocrit [facility] Start: 03-02-2025 Creatinine measurement Serum Creatinine [facility] Start: 03-01-2025 End: 03-01-2025 Patient encounter procedure 03/01/2025 9:15 AM EDT Office Visit [facility] [address] [place] [address] lab [facility] Comment on above: lab Start: 01-24-2025 End: 07-27-2025 Echocardiography ECHO Cardiology Routine Cardiomyopathy, unspecified type (HCC) 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) Expected: 01/24/2025, Expires: 07/27/2025 [facility] Work Phone: Comment on above: Expected: 01/24/2025, Expires: Start: 01-24-2025 End: 01-24-2025 Patient encounter procedure Cardiology Comment on above: Cardiomyopathy, unspecified type (HCC) [ I42.9]; 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) [I71.21] Return in about 6 mo nths (around 01/24/2025). Start: 12-01-2024 Complete blood count Hemoglobin/Hematocrit [facility] Start: 12-01-2024 Creatinine measurement Serum Creatinine [facility] Start: 11-30-2024 End: 11-30-2024 Patient encounter procedure 11/30/2024 9:15 AM EDT Office Visit [facility] [address] [place] [address] [place] [address] lab [facility] Comment on above: lab Start: 11-25-2024 End: 11-25-2024 Patient encounter procedure 11/25/2024 1:30 PM EDT Office Visit Cardiology [address] [facility] [place] [address] [place] [address] [place] [address] Follow up Per 07/27 Cardiology Comment on above: Follow up Per 07/27 Start: 11-05-2024 End: 11-05-2024 Patient encounter procedure 11/05/2024 1:00 PM EST Office Visit Cardiology [address] [place] [address] Melisa Briceño APRN.STEM DRYER MAINTAINER [address] [place] [address] S/P [facility] Cardiology Comment on above: S/P [facility] Start: 11-03-2024 Creatinine measurement Serum Creatinine [facility] Start: 10-05-2024 End: 10-05-2024 Patient encounter procedure 10/05/2024 3:30 PM EST Office Visit Cardiology [address] [place] [address] Melisa Briceño, RESTAURANT HOURLY TEAM MEMBER.STEM DRYER MAINTAINER [address] [place] [address] S/P [facility] Cardiology Comment on above: S[facility]P [facility] Start: 09-10-2024 End: 09-10-2024 Admission to same day surgery center 09/10/2024 11:00 AM EST - 09/10/2024 11:29 AM EST Surgery [facility] [address] [place] [address] [place] [address] [place] [address] CARDIOVERSION EXTERNAL ELECTIVE [facility] Comment on above: CARDIOVERSION EXTERNAL ELECTIVE Start: 09-10-2024 End: 09-10-2024 Cardioversion elective arrhythmia external CARDIOVERSION EXTERNAL ELECTIVE Atrial fibrillation, unspecified type (HCC) 09/10/2024 11:00 AM EST [facility] Start: 09-10-2024 Subsequent hospital visit by physician 09/10/2024 11:00 AM EST Hospital Encounter [facility] [address] [place] [address] [place] [address] [place] [address] Atrial fibrillation, unspecified type (HCC) [I48.91] [facility] Comment on above: Atrial fibrillation, unspecified type (H CC) [I48.91] Start: 09-08-2024 Advance Directive Discussion Advance Directive Discussion [facility] Start: 08-30-2024 End: 08-30-2024 Patient encounter procedure 08/30/2024 9:30 AM EST Office Visit [facility] [address] [place] [address] [place] [address] lab [facility] Comment on above: lab Start: 07-27-2024 End: 07-27-2024 Patient encounter procedure 07/27/2024 1:30 PM EST Office Visit Cardiology [address] [place] [address] Emanuel Scott MD [address] [place] [address] Return in about 4 months (around 07/13/2024). Cardiology Comment on above: Return in about 4 months (around 07/13/20). Start: 07-06-2024 End: 07-06-2024 Patient encounter procedure 07/06/2024 2:00 PM EDT Office Visit [facility] [address] [address] Nhi Oneil MD [address] [place] [address] 1 yr follow up [facility] Comment on above: 1 yr follow up Start: 06-03-2024 Hemoglobin/Hematocrit Hemoglobin/Hematocrit [facility] Start: 06-03-2024 Serum Creatinine Serum Creatinine [facility] Start: 06-01-2024 End: 06-01-2024 ambulatory 06/01/2024 9:30 AM EDT Results Only [facility] [address] [place] [address] [place] [address] [facility] Start: 05-09-2024 Influenza vaccination [facility] Start: 04-08-2024 End: 04-08-2024 Patient encounter procedure 04/08/2024 3:45 PM EDT Appointment Molecular Imaging [address] [place] [address] PET Perfusion Rest & Stress w/ Viability (0109, 0102) Molecular Imaging Comment on above: PET Perfusion Rest & Stress w/ Viability (0109, 0102) Start: 04-08-2024 End: 04-08-2024 Patient encounter procedure Molecular Imaging Comment on above: PET Perfusion Rest & Stress w/ Viability (0109, 0102) Start: 04-01-2024 End: 04-01-2024 ambulatory 04/01/2024 9:30 AM EDT Results Only [facility] [address] [place] [address] [place] [address] [facility] Start: 03-18-2024 End: 04-01-2024 Basic metabolic 2000 panel - Serum or Plasma BASIC METABOLIC PANEL Lab Routine Atrial fibrillation, persistent (HCC) Expected: 03/18/2024, Expires: 04/01/2024 [facility] Comment on above: Expected: 03/18/2024, Expires: Start: 03-18-2024 End: 04-01-2024 CBC panel - Blood by Automated count COMPLETE BLOOD COUNT Lab Routine Atrial fibrillation, persistent (HCC) Expected: 03/18/2024, Expires: 04/01/2024 [facility] Comment on above: Expected: 03/18/2024, Expires: Start: 03-18-2024 End: 03-18-2024 Patient encounter procedure 03/18/2024 2:00 PM EDT Office Visit Cardiology [address] [place] [address] Melisa Briceño APRN.STEM DRYER MAINTAINER [address] [place] [address] S/P [facility] Card[facility] Comment on above: [facility] Start: 03-18-2024 End: 04-01-2024 Tacrolimus [Mass/volume] in Blood TACROLIMUS/FK-506 BL Lab Routine S/p cadaver renal transplant Expected: 03/18/2024, Expires: 04/01/2024 [facility] Comment on above: Expected: 03/18/2024, Expires: Start: 03-18-2024 End: 04-01-2024 Thyrotropin [Units/volume] in Serum or Plasma THYROID STIMULATING HORMONE Lab Routine Atrial fibrillation, persistent (HCC) Expected: 03/18/2024, Expires: 04/01/2024 [facility] Comment on above: Expected: 03/18/2024, Expires: Start: 03-12-2024 End: 03-12-2024 Patient encounter procedure 03/12/2024 9:30 AM EDT Office Visit Cardiology [address] [place] [address] Emanuel Scott MD [address] [place] [address] 4 month follow up Cardiology Comment on above: 4 month follow up Start: 03-02-2024 End: 03-02-2024 Patient encounter procedure 03/02/2024 9:30 AM EDT Office Visit [facility] [address] [place] [address] [place] [address] LAB [facility] Comment on above: LAB Start: 02-24-2024 End: 02-24-2024 Patient encounter procedure 02/24/2024 1:00 PM EDT Office Visit Cardiology [address] [place] [address] Melisa Briceño APRN.[employer] MAINTAINER [address] [place] [address] S/P ABLATION Cardiology Comment on above: S/P ABLATION Start: 02-11-2024 End: 02-11-2024 Admission to same day surgery center 02/11/2024 12:15 PM EDT - 02/11/2024 3:48 PM EDT Surgery [facility] [address] [place] [address] [place] [address] [place] [address] COMPLETE EPS W/PVI ABL W/WO 3D MAP [...] PM EDT Hospital Encounter [facility] [address] [place] [address] [place] [address] [place] [address] Atrial fibrillation, unspecified type (HCC) [I48.91] [facility] Comment on above: Atrial fibrillation, unspecified type (H CC) [I48.91] Start: 01-21-2024 End: 04-21-2024 Basic metabolic 2000 panel - Serum or Plasma BASIC METABOLIC PANEL Lab Routine AF (paroxysmal atrial fibrillation) (HCC) Expected: 01/21/2024, Expires: 04/21/2024 [facility] Comment on above: Expected: 01/21/2024, Expires: Start: 01-21-2024 End: 04-21-2024 CBC panel - Blood by Automated count COMPLETE BLOOD COUNT Lab Routine AF (paroxysmal atrial fibrillation) (HCC) Expected: 01/21/2024, Expires: 04/21/2024 [facility] Work Phone: Comment on above: Expected: 01/21/2024, Expires: Start: 01-21-2024 End: 04-21-2024 TYPE AND SCREEN,30 DAY TYPE AND SCREEN,30 DAY Blood Bank Routine AF (paroxysmal atrial fibrillation) (HCC) Expected: 01/21/2024, Expires: 04/21/2024 [facility] Comment on above: Expected: 01/21/2024, Expires: Start: 12-03-2023 HEMOGLOBIN/HEMATOCRIT HEMOGLOBIN/HEMATOCRIT [facility] Start: 12-03-2023 SERUM CREATININE SERUM CREATININE [facility] Start: 11-10-2023 End: 02-09-2024 Lipid 1996 panel - Serum or Plasma LIPID PANEL BASIC Lab Routine Persistent atrial fibrillation (HCC) Abnormal EKG Encounter for lipid screening for cardiovascular disease Expected: 11/10/2023, Expires: 02/09/2024 [facility] Work Phone: Comment on above: Expected: 11/10/2023, Expires: Start: 09-08-2023 Advance Directive Discussion Advance Directive Discussion [facility] Start: 09-08-2023 Behavioral Health Screening Behavioral Health Screening [facility] Start: 09-08-2023 Depression Assessment Depression Assessment [facility] Start: 09-03-2023 HEMOGLOBIN/HEMATOCRIT HEMOGLOBIN/HEMATOCRIT [facility] Start: 09-03-2023 SERUM CREATININE SERUM CREATININE [facility] Start: 05-09-2023 Influenza vaccination Influenza Vaccine (#1) [facility] Start: 05-05-2023 End: 07-05-2023 Prostate specific Ag [Mass/volume] in Serum or Plasma PSA/PROSTSPECAG DIAG Lab Routine Elevated PSA Expected: 05/05/2023 (Approximate), Expires: 07/05/2023 [facility] Work Phone: Comment on above: Expected: 05/05/2023 (Approximate), Expi res: 07/05/2023 Start: 09-16-2022 End: 11-16-2022 ISOPSA ASSAY FOR UROLOGY USE ONLY ISOPSA ASSAY FOR UROLOGY USE ONLY Lab Routine Elevated PSA Expected: 09/16/2022, Expires: 11/16/2022 [facility] Work Phone: Comment on above: Expected: 09/16/2022, Expires: 3 Start: 09-08-2022 ADVANCE DIRECTIVE DISCUSSION ADVANCE DIRECTIVE DISCUSSION [facility] Start: 09-08-2022 DEPRESSION ASSESSMENT DEPRESSION ASSESSMENT [facility] Start: 2022 ADVANCE DIRECTIVE DISCUSSION ADVANCE DIRECTIVE DISCUSSION [facility] Start: 05-09-2022 Influenza vaccination INFLUENZA (#1) [facility] Start: 05-09-2022 Medicare Annual Wellness Visit Medicare Annual Wellness Visit [facility] Start: 02-26-2022 End: 04-28-2022 Prostate specific Ag [Mass/volume] in Serum or Plasma PSA/PROSTSPECAG DIAG Lab Routine Elevated PSA Expected: 02/26/2022, Expires: 04/28/2022 [facility] Work Phone: Comment on above: Expected: 02/26/2022, Expires: 2 Start: 09-08-2021 DEPRESSION ASSESSMENT DEPRESSION ASSESSMENT [facility] Start: 03-10-2018 HEMOGLOBIN/HEMATOCRIT HEMOGLOBIN/HEMATOCRIT [facility] Start: 06-11-2017 SERUM CREATININE SERUM CREATININE [facility] Start: 2017 RSV Vaccine (1 - 1-dose 60+ series) RSV Vaccine (1 - 1-dose 60+ series) [facility] Start: 2017 RSV Vaccine (1 - Risk 60-74 years 1-dose series) RSV Vaccine (1 - Risk 60-74 years 1-dose series) [facility] Start: 02-06-2015 DIABETES SCREEN DIABETES SCREEN [facility] Start: 2007 SHINGRIX VACCINE (1 of 2) SHINGRIX VACCINE (1 of 2) [facility] Start: 2002 COLOGUARD (FIT-DNA) COLOGUARD (FIT-DNA) [facility] Start: 2002 Colonoscopy COLONOSCOPY [facility] Start: 2002 COLORECTAL CANCER SCREENING COLORECTAL CANCER SCREENING [facility] Start: [address] COLONOGRAPHY [facility] Start: 2002 FECAL OCCULT BLOOD FECAL OCCULT BLOOD [facility] Start: 2002 Screening for malignant neoplasm of colon [facility] Start: 2002 SIGMOIDOSCOPY SIGMOIDOSCOPY [facility] Start: 1976 Hepatitis A Vaccine (1 of 2 - Risk 2-dose series) Hepatitis A Vaccine (1 of 2 - Risk 2-dose series) [facility] Start: 1976 Pneumococcal Vaccine: 50+ (1 of 2 - PCV) Pneumococcal Vaccine: 50+ (1 of 2 - PCV) [facility] Start: 1976 SHINGRIX VACCINE (1 of 2) SHINGRIX VACCINE (1 of 2) [facility] Start: 1976 Urine microalbumin profile [facility] Start: 1975 ANNUAL PCP TEAM CHRONIC DISEASE VISIT ANNUAL PCP TEAM CHRONIC DISEASE VISIT [facility] Start: 1975 Anxiety Screening Anxiety Screening [facility] Start: 1975 BP Controlled (<130/80) BP Controlled (<130/80) [facility] Start: 1975 Depression Screening Depression Screening [facility] Start: 1969 Adult depression screening assessment DEPRESSION SCREENING [facility] Start: 1963 PNEUMOCOCCAL (1 - PCV) PNEUMOCOCCAL (1 - PCV) [facility] Start: 1963 Pneumococcal Vaccine: 65+ (1 - PCV) Pneumococcal Vaccine: 65+ (1 - PCV) [facility] Start: 1963 Pneumococcal Vaccine: 65+ (1 of 2 - PCV) Pneumococcal Vaccine: 65+ (1 of 2 - PCV) [facility] Start: 10-01-1963 PNEUMOCOCCAL: 65+ (1 - PCV) PNEUMOCOCCAL: 65+ (1 - PCV) [facility] Start: 1962 COVID-19 VACCINE (#1) COVID-19 VACCINE (#1) [facility] Start: 1958 HEPATITIS A (1 of 2 - Risk 2-dose series) HEPATITIS A (1 of 2 - Risk 2-dose series) [facility] Start: 1957 COVID-19 VACCINE (#1) COVID-19 VACCINE (#1) [facility] Cardioversion electi ve arrhythmia internal spx CARDIOVERSION, ELECTIVE, ELECTRICAL Cardiology Routine Atrial fibrillation, persistent (HCC) Ordered: 03/18/2024 [facility] Comment on above: Ordered: 03/18/2024 End: 06-29-2024 CBC panel - Blood by Automated count CBC Lab Routine Kidney replaced by transplant Every 3 months for 4 Occurrences starting 06/30/2023 until 06/29/2024 [facility] Work Phone: Comment on above: Every 3 months for 4 Occurrences startin g 06/30/2023 until 06/29/2024 End: 08-26-2025 CBC W Auto Differential panel - Blood COMPLETE BLOOD COUNT AND DIFFERENTIAL Lab Routine Kidney replaced by transplant Every 3 months for 4 Occurrences starting 08/26/2024 until 08/26/2025 [facility] Comment on above: Every 3 months for 4 Occurrences startin g 08/26/2024 until 08/26/2025 End: 06-29-2024 Comprehensive metabolic 2000 panel - Serum or Plasma COMP METABOLIC PANEL Lab Routine Kidney replaced by transplant Every 3 months for 4 Occurrences starting 06/30/2023 until 06/29/2024 [facility] Work Phone: Comment on above: Every 3 months for 4 Occurrences startin g 06/30/2023 until 06/29/2024 End: 08-26-2025 Comprehensive metabolic 2000 panel - Serum or Plasma COMPREHENSIVE METABOLIC PANEL Lab Routine Kidney replaced by transplant Every 3 months for 4 Occurrences starting 08/26/2024 until 08/26/2025 [facility] Comment on above: Every 3 months for 4 Occurrences startin g 08/26/2024 until 08/26/2025 ECG COMPLETE [facility] Work Phone: Comment on above: Ordered: 11/10/2023 ECG COMPLETE [facility] Work Phone: Comment on above: Ordered: 01/15/2024 ECG COMPLETE [facility] Work Phone: Comment on above: Ordered: 03/12/2024 ECG COMPLETE [facility] Work Phone: Comment on above: Ordered: 03/18/2024 ECG COMPLETE ECG COMPLETE ECG Routine Atrial fibrillation, persistent (HCC) Ordered: 11/25/2024 [facility] Work Phone: Comment on above: Ordered: 11/25/2024 End: 06-29-2024 Magnesium [Mass/volume] in Serum or Plasma MAGNESIUM BLD Lab Routine Hypomagnesemia Every 3 months for 4 Occurrences starting 06/30/2023 until 06/29/2024 [facility] Work Phone: Comment on above: Every 3 months for 4 Occurrences startin g 06/30/2023 until 06/29/2024 End: 08-26-2025 Magnesium [Mass/volume] in Serum or Plasma MAGNESIUM Lab Routine Hypomagnesemia Kidney replaced by transplant Every 3 months for 4 Occurrences starting 08/26/2024 until 08/26/2025 [facility] Comment on above: Every 3 months for 4 Occurrences startin g 08/26/2024 until 08/26/2025 End: 10-19-2023 Mri pelvis w/o & w/contrast material MRI PROSTATE WO/W IVCON Radiology Routine Encounter for observation for other suspected diseases and conditions ruled out 1 Occurrences starting 09/19/2022 until 10/19/2023 [facility] Work Phone: Comment on above: 1 Occurrences starting 09/19/2022 until 10/19/2023 End: 12-09-2024 NM Heart Perfusion W stress and W radionuclide IV NM CARDIAC PERF STRESS/PHARM Radiology Routine Persistent atrial fibrillation (HCC) Abnormal EKG 1 Occurrences starting 11/10/2023 until 12/09/2024 [facility] Work Phone: Comment on above: 1 Occurrences starting 11/10/2023 until 12/09/2024 NM Heart Perfusion W stress and W radionuclide IV NM CARDIAC PERF STRESS/PHARM Radiology Routine Persistent atrial fibrillation (HCC) Abnormal EKG 12/26/2023 12:51 PM EDT [facility] Work Phone: End: 04-11-2025 PET+CT Heart WO contrast NM PET/CT CARDIAC PERF REST/STRESS Radiology Routine Persistent atrial fibrillation (HCC) Abnormal EKG S/P ablation of atrial fibrillation 1 Occurrences starting 03/12/2024 until 04/11/2025 [facility] Comment on above: 1 Occurrences starting 03/12/2024 until 04/11/2025 End: 06-29-2024 Phosphate [Mass/volume] in Serum or Plasma PHOSPHORUS INORGANIC Lab Routine Hypophosphatemia Every 3 months for 4 Occurrences starting 06/30/2023 until 06/29/2024 [facility] Work Phone: Comment on above: Every 3 months for 4 Occurrences startin g 06/30/2023 until 06/29/2024 End: 08-26-2025 Phosphate [Mass/volume] in Serum or Plasma PHOSPHORUS INORGANIC Lab Routine Kidney replaced by transplant Every 3 months for 4 Occurrences starting 08/26/2024 until 08/26/2025 [facility] Comment on above: Every 3 months for 4 Occurrences startin g 08/26/2024 until 08/26/2025 PROSTATE BIOPSY GUKI PROSTATE BI OPSY GUKI Procedures Routine Encounter for observation for other suspected diseases and conditions ruled out Ordered: 09/19/2022 [facility] Work Phone: Comment on above: Ordered: 09/19/2022 End: 04-11-2025 PT Heart for tissue viability NM PET/CT CARDIAC VIABILITY Radiology Routine Heart disease 1 Occurrences starting 03/12/2024 until 04/11/2025 [facility] Work Phone: Comment on above: 1 Occurrences starting 03/12/2024 until 04/11/2025 SURGICAL PATHOLOGY SURGICAL PATH OLOGY Lab Routine Elevated PSA 10/17/2022 9:23 AM EST [facility] Work Phone: End: 06-29-2024 Tacrolimus [Mass/volume] in Blood TACROLIMUS/FK-506 BL Lab Routine Kidney replaced by transplant Every 3 months for 4 Occurrences starting 06/30/2023 until 06/29/2024 [facility] Work Phone: Comment on above: Every 3 months for 4 Occurrences startin g 06/30/2023 until 06/29/2024 End: 08-26-2025 Tacrolimus [Mass/volume] in Blood TACROLIMUS/FK-506 BL Lab Routine Kidney replaced by transplant Every 3 months for 4 Occurrences starting 08/26/2024 until 08/26/2025 [facility] Work Phone: Comment on above: Every 3 months for 4 Occurrences startin g 08/26/2024 until 08/26/2025 [facility] Immunizations Immunization Date Immunization Notes Care Provider [facility] 07-06-2024 influenza, high dose seasonal, preservative-free Nhi Oneil MD Work Phone: [facility] 07-06-2024 influenza virus vacc ine, unspecified formulation Emanuel Scott MD Work Phone: [facility] 07-01-2022 influenza, high-dose , quadrivalent vaccine (FLUZONE HIGH DOSE QUADRIVALENT) Usman Lowry APRN.CNP Work Phone: [facility] 07-01-2022 influenza virus vacc ine, unspecified formulation Usman Lowry APRN.[employer]INTAIN[employer] Work Phone: [facility] 07-05-2021 influenza, injectabl e, quadrivalent, contains preservative Usman Patricia PA Work Phone: [facility] 07-03-2020 influenza, injectabl e, quadrivalent, contains preservative Usman Patricia PA Work Phone: [facility] 07-05-2019 influenza, injectabl e, quadrivalent, contains preservative Usman Patricia PA Work Phone: [facility] 05-09-2016 influenza virus vacc ine, unspecified formulation Usman LYNN Work Phone: [facility] 06-21-2010 influenza virus vacc ine, unspecified formulation Usman LYNN Work Phone: [facility] 07-13-2009 influenza virus vacc ine, unspecified formulation Usman LYNN Work Phone: [facility] 07-13-2009 novel influenza-H1N1 -09, all formulations Usman LYNN Work Phone: [facility] 02-07-2009 pneumococcal conjuga te vaccine, 7 valent Usman LYNN Work Phone: [facility] 12-31-2008 tuberculin skin test ; purified protein derivative solution, intradermal Emanuel Scott MD Work Phone: [facility] Payers Date Payer Category Payer Medicare [id number] 2022 Medicare [id number] 2021 Unknown [id number] 2019 Private Health Insurance [place] [employer] [id number] 2019-Present [phone] [address] [place] [address] O [id number] 1959 Private Health Insurance [id number] 1959 Self-pay 1957 Unknown [id number] 1957 Unknown [id number] 1957 Unknown [id number] Social History Date Type Detail Facility Start: 05-27-2011 Tobacco smoking stat [facility] Never smoked tobacco [facility] Work Phone: Start: 07-05-2021 End: 01-24-2025 Alcohol intake Current non-drinker of alcohol (finding) [facility] Start: 01-23-2009 History SDOH Alcohol Comment no alcohol > 2 yrs, no previous hx of abuse [facility] Start: 1955 Sex Assigned At Male [facility] Start: 01-06-2022 End: 07-01-2022 Exposure to SARS-CoV-2 (event) Not sure [facility] Start: 05-27-2011 Tobacco use and exposure Smokeless tobacco non-user [facility] Start: 09-16-2022 End: 09-20-2022 History of Social function [facility] Start: 09-16-2022 End: 09-20-2022 Tobacco use panel [facility] National Score (1-10 0), lower number is lower risk 62 [facility] Start: 01-25-2022 Gender identity Identifies as male gender (finding) [facility] Start: 01-25-2022 Sexual orientation Heterosexual (thierry davis) [facility] Medical Equipment Procedure Code Equipment Code Equipment Origin al Text Equipment Identifier Dates Mesh Srg Pco Opt im 8x6in - [id number] Start: 02-05-2012 Comment on above: Description: Optimiz ed Composite mesh Goals Date Patient Goal Desired Activity /State Personal health goal Functional Status Date Assessment Result Facility 03-06-2024 Are you deaf, or do you have serious difficulty hearing No 03/06/2024 11:12 AM Zhanna Fuentes RN No [facility] 03-06-2024 Are you blind, or do you have serious difficulty seeing, even when wearing glasses No 03/06/2024 11:12 AM Zhanna Fuentes RN [facility] 03-06-2024 Do you have serious difficulty walking or climbing stairs No 03/06/2024 11:12 AM Zhanna Fuentes RN [facility] 03-06-2024 Do you have difficul ty dressing or bathing No 03/06/2024 11:12 AM Zhanna Fuentes RN [facility] 03-06-2024 Because of a physica l, mental, or emotional condition, do you have difficulty doing errands alone such as visiting a physician's office or shopping No 03/06/2024 11:12 AM EDT Zhanna Lozada RN No [facility] Mental Status Date Assessment Result Facility 03-06-2024 Because of a physica l, mental, or emotional condition, do you have serious difficulty concentrating, remembering, or making decisions No 03/06/2024 11:12 AM EDT Zhanna Lozada RN No [facility] Clinical Notes 07-27-2021 to 03-30-2025 Telephone Encounter - Hanny Moulton RN - 03/30/2025 3:54 PM EDTTelephone Encounter - Hanny Moulton RN - 03/30/2025 3:54 PM Emanuel Adame MD - 01/24/2025 3:00 PM EDTPatient Instructions Note Date & Type Note Facility 03-30-2025 Telephone encounter Note Received request for refill of the following medications: Requested Prescriptions Pending Prescriptions Disp Refills rivaroxaban (XARELTO) 20 mg tablet 90 tablet 3 Sig: Take 1 tablet by mouth daily with dinner. Patient requested a 90 day refill. Pharmacy verified and updated accordingly. Patient was last seen in cardiology office: 01/24/2025. Upcoming appointment scheduled: 08/26/2025. Labs: Hemoglobin (g/dL) Date Value 03/04/2025 14.5 03/10/2017 15.3 Hematocrit (%) Date Value 03/04/2025 41.5 03/10/2017 47.4 WBC (k/uL) Date Value 03/04/2025 6.01 03/10/2017 6.49 Platelet Count (k/uL) Date Value 03/04/2025 143 03/10/2017 126 Creatinine Date Value Ref Range Status 03/04/2025 1.17 0.73 - 1.22 mg/dL Final 11/30/2024 1.31 (H) 0.73 - 1.22 mg/dL Final [facility] 03-30-2025 Miscellaneous Notes Received request for refill of the following medications: Requested Prescriptions Pending Prescriptions Disp Refills rivaroxaban (XARELTO) 20 mg tablet 90 tablet 3 Sig: Take 1 tablet by mouth daily with dinner. Patient requested a 90 day refill. Pharmacy verified and updated accordingly. Patient was last seen in cardiology office: 01/24/2025. Upcoming appointment scheduled: 08/26/2025. Labs: Hemoglobin (g/dL) Date Value 03/04/2025 14.5 03/10/2017 15.3 Hematocrit (%) Date Value 03/04/2025 41.5 03/10/2017 47.4 WBC (k/uL) Date Value 03/04/2025 6.01 03/10/2017 6.49 Platelet Count (k/uL) Date Value 03/04/2025 143 03/10/2017 126 Creatinine Date Value Ref Range Status 03/04/2025 1.17 0.73 - 1.22 mg/dL Final 11/30/2024 1.31 (H) 0.73 - 1.22 mg/dL Final documented in this encounter [facility] 01-24-2025 History of Present illness Narrative Images from the original note were not included. [facility] SECTION OF REGIONAL CARDIOLOGY OUTPATIENT VISIT DATE January 24, 2025 OUTPATIENT VISIT TYPE Established PRIMARY CARE PHYSICIAN: Kathleen Sams [address] [place], [place] [address] [address] REFERRING PHYSICIAN: Usman Lowry [address] [facility] [address] C/C: Follow-up for atrial fibrillation Last and [...] Coronary atherosclerosis of unspecified type of vessel, [place] or graft Mild 3-vessel Coronary artery disease Hypertension Polycystic kidney, unspecified type 09/08/1993 S/p cadaver renal transplant (HCC) Umbilical hernia PAST SURGICAL HISTORY Procedure Laterality Date LAPAROSCOPY REPAIR INCISIONAL HERNIA REDUCIBLE 2002 umbilical PAST SURGICAL HISTORY OF 07/27/07 Colon [...] with normal LVEF. No significant valvular dysfunction. [id number] score of 2, primarily with history of [...] Emanuel Scott MD documented in this encounter [facility] 01-24-2025 Note HNO ID: [id number] Author: EMANUEL SCOTT MD Service: ? Author Type: Physician Type: Progress Notes Filed: 01/24/2025 15:26 Note Text: [facility] SECTION OF REGIONAL CARDIOLOGY OUTPATIENT VISIT DATE January 24, 2025 OUTPATIENT VISIT TYPE Established PRIMARY CARE PHYSICIAN: Kathleen Sams [address] [place], [place] [address] [address] REFERRING PHYSICIAN: Usman Lowry [address] [facility] [address] C/C: Follow-up for atrial fibrillation Last and initial visit with mn Jul 2024 HISTORY OF PRESENT ILLNESS: Mr. Rosen is a 69 year old male, seen in clinic today for follow-up for atrial fibrillation CV history reviewed, summarized and updated: Initial visit with mn in Sep 2023-noted to be in Afib [...] Coronary atherosclerosis of unspecified type of vessel, [place] or graft Mild 3-vessel Coronary artery disease [...] a day. (Patient (more content not included)... [facility] 01-21-2025 Telephone encounter Note Patient's request for medication is as follows: Requested Prescriptions Pending Prescriptions Disp Refills mycophenolate mofetil (CELLCEPT) 250 mg capsule [Pharmacy Med Name: MYCOPHENOLATE 250MG CAPSULES] 360 capsule 3 Sig: TAKE 2 CAPSULES BY MOUTH TWICE DAILY Please approve the above prescription(s) to electronically send to pharmacy. MINDY Kaur [facility] 01-21-2025 Miscellaneous Notes Patient's request for medication is as follows: Requested Prescriptions Pending Prescriptions Disp Refills mycophenolate mofetil (CELLCEPT) 250 mg capsule [Pharmacy Med Name: MYCOPHENOLATE 250MG CAPSULES] 360 capsule 3 Sig: TAKE 2 CAPSULES BY MOUTH TWICE DAILY Please approve the above prescription(s) to electronically send to pharmacy. MINDY Kaur documented in this encounter [facility] 12-13-2024 Miscellaneous Notes The following approved medication requests have been transmitted electronically. Requested Prescriptions Signed Prescriptions Disp Refills metoprolol tartrate, short acting, (LOPRESSOR) 25 mg tablet 270 tablet 3 Sig: TAKE 1 AND 1/2 TABLETS BY MOUTH TWICE DAILY Authorizing Provider: EMANUEL SCOTT Ordering User: SALINA ROBERTS APRN.CNP Received request for refill of the following [...] 1.22 mg/dL Final documented in this encounter [facility] 12-13-2024 Telephone encounter Note The following approved medication requests have been transmitted electronically. Requested Prescriptions Signed Prescriptions Disp Refills metoprolol tartrate, short acting, (LOPRESSOR) 25 mg tablet 270 tablet 3 Sig: TAKE 1 AND 1/2 TABLETS BY MOUTH TWICE DAILY Authorizing Provider: EMANUEL SCOTT Ordering User: SALINA ROBERTS APRN.SEAN [facility] Work Phone: 12-13-2024 Telephone encounter Note [...] 1.24 (H) 0.73 - 1.22 mg/dL Final [facility] 11-25-2024 Note HNO ID: [id number] Author: WEI PABLO MD Service: ? Author Type: Physician Type: Progress Notes Filed: 11/25/2024 13:41 Note Text: [facility] SECTION OF REGIONAL CARDIOLOGY OUTPATIENT VISIT DATE November 25, 2024 OUTPATIENT VISIT TYPE ESTABLISHED PRIMARY CARE PHYSICIAN: [place] [address] CHIEF COMPLAINT: Persistent afib HISTORY OF PRESENT ILLNESS: Mr. Rosen is a 69 year old male with NICM, obesity, persistent AF , afib ablation in 02/2024. Had recurrence in September 2024 and underwent DCCV into sinus rhythm. No new recurrence since last DCCV. No chest pain. He has Polycystic kidney s/p renal transplant and on anti-rejection meds which relatively precluded joint terminal attack controller AAD ( due to risk of [id number]). IMPRESSION: Persistent AF: S/p PVI in 02/2024 [...] Coronary atherosclerosis of unspecified type of vessel, [place] or graft Mild 3-vessel Coronary artery disease [...] ORAL) Take one(1) tablet two(2) times daily. [facility] 11-25-2024 History of Present illness Narrative Images from the original note were not included. [facility] [place] SECTION OF REGIONAL CARDIOLOGY OUTPATIENT VISIT DATE November 25, 2024 OUTPATIENT VISIT TYPE ESTABLISHED PRIMARY CARE PHYSICIAN: Kathleen Kauf[place] [address] CHIEF COMPLAINT: Persistent afib HISTORY OF PRESENT ILLNESS: Mr. Rosen is a 69 year old male with NICM, obesity, persistent AF , afib ablation in 02/2024. Had recurrence in September 2024 and underwent DCCV into sinus rhythm. No new recurrence since last DCCV. No chest pain. He has Polycystic kidney s/p renal transplant and on anti-rejection meds which relatively precluded joint terminal attack controller AAD ( due to risk of [id number]). IMPRESSION: Persistent AF: S/p PVI in 02/2024 [...] Coronary atherosclerosis of unspecified type of vessel, hooper bay or graft Mild 3-vessel Coronary artery disease [...] two(2) times daily. documented in this encounter [facility] 11-15-2024 Telephone encounter Note The following approved medication requests have been transmitted electronically. Requested Prescriptions Signed Prescriptions Disp Refills mycophenolate mofetil (CELLCEPT) 250 mg capsule 360 capsule 3 Sig: Take 2 capsules by mouth two times a day. Authorizing Provider: USMAN LOWRY APRN.CNP [facility] 11-15-2024 Miscellaneous Notes The following approved medication requests have been transmitted electronically. Requested Prescriptions Signed Prescriptions Disp Refills mycophenolate mofetil (CELLCEPT) 250 mg capsule 360 capsule 3 Sig: Take 2 capsules by mouth two times a day. Authorizing Provider: USMAN LOWRY APRN.CNP [facility] 07/06/2024 Patient phones requesting refills as follows: Requested Prescriptions Pending Prescriptions Disp Refills mycophenolate mofetil (CELLCEPT) 250 mg capsule 360 capsule 3 Sig: Take 2 capsules by mouth two times a day. Please review and advise. Randy Arias documented in this encounter [facility] 11-12-2024 Telephone encounter Note [facility] 07/06/2024 Patient phones requesting refills as follows: Requested Prescriptions Pending Prescriptions Disp Refills mycophenolate mofetil (CELLCEPT) 250 mg capsule 360 capsule 3 Sig: Take 2 capsules by mouth two times a day. Please review and advise. Randy Arias [facility] 11-05-2024 History of Present illness Narrative Images from the original note were not included. [facility] [place] Department of Cardiovascular Medicine SECTION OF ELECTROPHYSIOLOGY AND PACING OUTPATIENT VISIT DATE November 05, 2024 OUTPATIENT VISIT TYPE ESTABLISHED PRIMARY CARE PHYSICIAN: [place] [address] CHIEF COMPLAINT: Follow Up HISTORY OF PRESENT [...] Coronary atherosclerosis of unspecified type of vessel, hooper bay or graft Mild 3-vessel Coronary artery disease [...] s/p EPS:PVI (02/2024) followed by DCCV 09/2024 [id number]: 3 (Age, HTN, PVD)--Xarelto 20 mg every day with dinner ECG today demonstrates NSR VR 68 No known recurrence of atrial fibrillation since DCCV. Continue metoprolol and Xarelto as presently prescribed. Has follow up with Dr. Pablo in November, which he will keep. Repeat echocardiogram is scheduled for January along with follow up with Dr. Scott. CONTACT INFORMATION: Melisa Briceño APRN.[facility] [address] [facility] [address] Dept: [phone] Part of this note was copied from my previous note, all content has been individually and thoroughly reviewed, updated as necessary, patient assessed with updated information, and changes appropriately documented/adjusted. documented in this encounter [facility] 11-05-2024 Note HNO ID: [id number] Author: MELISA BRICEÑO APRN.CNP Service: ? Author Type: Nurse Practitioner Type: Progress Notes Filed: 11/05/2024 13:26 Note Text: [facility] [place] [facility] Department of Cardiovascular Medicine SECTION OF ELECTROPHYSIOLOGY AND PACING OUTPATIENT VISIT DATE November 05, 2024 OUTPATIENT VISIT TYPE ESTABLISHED PRIMARY CARE PHYSICIAN: [place] [address] CHIEF COMPLAINT: Follow Up HISTORY OF PRESENT [...] Coronary atherosclerosis of unspecified type of vessel, hooper bay or graft Mild 3-vessel Coronary artery disease [...] cooperative. CARDIOVASCULAR MEDICINE TESTING: Labs: Latest Ref Rn 08/30/2024 WBC 3.70 - 11.00 k/uL 5.93 [...] endocardial border d (more content not included)... [facility] 10-22-2024 Miscellaneous Notes The following approved medication requests have been transmitted electronically. Requested Prescriptions Signed Prescriptions Disp Refills tacrolimus IR (PROGRAF) 1 mg capsule 180 capsule 3 Sig: Take(1) capsule by mouth twice daily Authorizing Provider: USMAN LOWRY APRN.CNP Patient phones requesting refills as follows: Requested Prescriptions Pending Prescriptions Disp Refills tacrolimus IR (PROGRAF) 1 mg capsule 180 capsule 3 Sig: Take(1) capsule by mouth twice daily Please review and advise. Ghada Bains documented in this encounter [facility] 10-22-2024 Telephone encounter Note The following approved medication requests have been transmitted electronically. Requested Prescriptions Signed Prescriptions Disp Refills tacrolimus IR (PROGRAF) 1 mg capsule 180 capsule 3 Sig: Take(1) capsule by mouth twice daily Authorizing Provider: USMAN LOWRY APRN.SEAN [facility] 10-18-2024 Telephone encounter Note Patient phones requesting refills as follows: Requested Prescriptions Pending Prescriptions Disp Refills tacrolimus IR (PROGRAF) 1 mg capsule 180 capsule 3 Sig: Take(1) capsule by mouth twice daily Please review and advise. Ghada Bains [facility] 08-30-2024 Telephone encounter Note Called and relayed below message. Patient does take magnesium daily, says he cannot tolerate BID due to diarrhea. He says he runs low and Dr. Oneil told him he will always have this problem. [facility] 08-30-2024 Miscellaneous Notes Called and relayed below message. Patient does take magnesium daily, says he cannot tolerate BID due to diarrhea. He says he runs low and Dr. Oneil told him he will always have this problem. Please l patient. Magnesium is quite low. Recommend he take magnesium supplement-OTC 400 mg BID. Thank you! Melisa Briceño APRN.STEM DRYER MAINTAINER documented in this encounter [facility] 08-30-2024 Telephone encounter Note Please l patient. Magnesium is quite low. Recommend he take magnesium supplement-OTC 400 mg BID. Thank you! Melisa Briceño APRN.STEM DRYER MAINTAINER [facility] Work Phone: 08-27-2024 Telephone encounter Note Called and spoke to patient and scheduled his cardioversion at [facility] with Dr Pablo for September 10. Patient notified instructions and sent mychart. Follow up scheduled. [facility] 08-27-2024 Telephone encounter Note ----- Message [...] just need to schedule with Dr. Pablo, senait. [place] ----- Message ----- From: Karlene Nguyen Sent: 08/26/2024 3:51 PM EST To: Melisa Briceño APRN.CNP There was a CC chart message from Dr Scott on this dmitry, And I can't find the message that I thought was from you regarding his labs? Maybe Can you please help [facility] 08-27-2024 Miscellaneous Notes Called and spoke to patient and scheduled his cardioversion at [facility] with Dr Pablo for September 10. Patient notified instructions and sent mychart. Follow up scheduled. ----- Message from MINDY Coelho sent at 08/27/2024 8:12 AM EST ----- 09/07 ----- Message ----- From: Karlene Nguyen Sent: 08/27/2024 7:04 AM EST To: MINDY May Can you please schedule his dcc w Dr Pablo next available ----- Message ----- From: Melisa Briceño APRN.STEM DRYER MAINTAINER Sent: 08/26/2024 4:12 PM EST To: Karlene Mondragon I ordered labs now. I had messaged Dr. Pablo regarding whether or not he wanted to proceed, which he stated he did. So just need to schedule with Dr. Pablo, please. [place] ----- Message ----- From: Karlene Nguyen Sent: 08/26/2024 3:51 PM EST To: Melisa Briceño APRN.STEM DRYER MAINTAINER There was a CC chart message from Dr Scott on this dmitry, And I can't find the message that I thought was from you regarding his labs? Maybe Can you please help documented in this encounter [facility] 08-27-2024 Telephone encounter Note Waiting for patient to call us back to schedule his cardioversion with Dr Pablo. [facility] 08-27-2024 Miscellaneous Notes Waiting for patient to call us back to schedule his cardioversion with Dr Pablo. documented in this encounter [facility] 08-27-2024 Telephone encounter Note Called and left message for patient to schedule his dcc with Dr Pablo for September 07. Gave patient my direct number. [facility] 08-27-2024 Telephone encounter Note ----- Message from MINDY Coelho sent at 08/27/2024 8:12 AM EST ----- 09/07 ----- Message ----- From: Karlene Nguyen Sent: 08/27/2024 7:04 AM EST To: MINDY May Can you please schedule his dcc w Dr Pablo next available ----- Message ----- From: Melisa Briceño APRN.STEM DRYER MAINTAINER Sent: 08/26/2024 4:12 PM EST To: Karlene Mondragno I ordered labs now. I had messaged Dr. Pablo regarding whether or not he wanted to proceed, which he stated he did. So just need to schedule with Dr. Pablo, please. [place] ----- Message ----- From: Karlene Nguyen Sent: 08/26/2024 3:51 PM EST To: Melisa Briceño APRN.STEM DRYER MAINTAINER There was a CC chart message from Dr Scott on this dmitry, And I can't find the message that I thought was from you regarding his labs? Maybe Can you please help [facility] 08-27-2024 Miscellaneous Notes Called and left message for patient to schedule his dcc with Dr Pablo for September 07. Gave patient my direct number. ----- Message from MINDY Coelho sent at 08/27/2024 8:12 AM EST ----- 09/07 ----- Message ----- From: Karlene Nguyen Sent: 08/27/2024 7:04 AM EST To: Julia Yi, METER MAINTENANCE PERSON Can you please schedule his dcc w Dr Pablo next available ----- Message ----- From: Melisa Briceño APRN.SEAN Sent: 08/26/2024 4:12 PM EST To: Karlene [...] you please help documented in this encounter [facility] 08-25-2024 Telephone encounter Note Called and scheduled with ep physician. [facility] 08-25-2024 Miscellaneous Notes Called and scheduled with ep physician. documented in this encounter [facility] 07-27-2024 History of Present illness Narrative Images from the original note were not included. [facility] [place] SECTION OF REGIONAL CARDIOLOGY OUTPATIENT VISIT DATE Jul 27, 2024 OUTPATIENT VISIT TYPE Established PRIMARY CARE PHYSICIAN: [place] [address] REFERRING PHYSICIAN: Usman Lowry [address] [facility] [address] C/C: Follow-up for atrial fibrillation Last and initial visit with mn March 2024 HISTORY OF PRESENT ILLNESS: Mr. Rosen is a 69 year old male, seen in clinic today for follow-up for atrial fibrillation CV history reviewed, summarized and updated: Initial visit with mn in Sep 2023-noted to be in Afib [...] in persistent atrial fibrillation, after discussion with food safety coordinator, was started on amiodarone. Plan was for [...] Coronary atherosclerosis of unspecified type of vessel, hooper bay or graft Mild 3-vessel Coronary artery disease [...] fibrillation. At last follow-up with the EP [facility]RBAN ANTHROPOLOGIST, was started on amiodarone with plan for [...] due to underlying CKD of transplanted kidney. [id number] score of 2, primarily with history of [...] mg daily Will reach out to EP URBAN ANTHROPOLOGIST and arrange for follow-up with EP, possible plan to control atrial fibrillation with rate control and anticoagulation at this time F/u with me in 6 mo with repeat ECHO prior to f/u. Emanuel Scott MD documented in this encounter [facility] 07-27-2024 Note HNO ID: [id number] Author: EMANUEL SCOTT MD Service: ? Author Type: Physician Type: Progress Notes Filed: 07/27/2024 13:48 Note Text: [facility] [place] SECTION OF REGIONAL CARDIOLOGY OUTPATIENT VISIT DATE Jul 27, 2024 OUTPATIENT VISIT TYPE Established PRIMARY CARE PHYSICIAN: [place] [address] REFERRING PHYSICIAN: Usman Lowry [address] [facility] [address] C/C: Follow-up for atrial fibrillation Last and [...] in persistent atrial fibrillation, after discussion with food safety coordinator, was started on amiodarone. Plan was for [...] Coronary atherosclerosis of unspecified type of vessel, hooper bay or graft Mild 3-vessel Coronary artery disease [...] daily. amiodarone ([place] (more content not included)... [facility] 07-06-2024 Note HNO ID: [id number] Author: NHI ONEIL MD Service: ? Author Type: Physician Type: Progress Notes Filed: 07/06/2024 17:08 Note Text: Department of Kidney Medicine [facility] [place] [facility], [facility] July 06, 2024 Portions of this note were copied forward from the last encounter in this office to ensure historical accuracy. Changes were made to accurately reflect updated history, physical exam, and medical decision making. 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 Had ventral hernia repair in February 2013. Baseline scr 1.2-1.4 Brother had renal tx here in Aug 2020L ankle fusion surgery on 10/22/19--required reoperation to [...] 09/13/2017 24 09 (more content not included)... [facility] 07-06-2024 History of Present illness Narrative Department of Kidney Medicine Medical Specialties [place] [facility] July 06, 2024 Portions of this note were copied forward from the last encounter in this office to ensure historical accuracy. Changes were made to accurately reflect updated history, physical exam, and medical decision making. CC: KTXP FU HPI: Kidney transplant date: 04/19/09 [facility] [place] kidney nephrectomies at time of tx Original [...] DNA by PCR 06/05/2021 Test reordered by [facility]. 03/06/2021 Negative for BK virus DNA by [...] Nhi Oneil MD documented in this encounter [facility] 07-06-2024 Note Patient Outreach (KI DMMN) ------ LINK ROSEN ([id number]) 1955 M Date Time Provider Department 07/06/24 NHI ONEIL During your visit today, we recorded the following information about you: Allergies As of Date: 07/06/2024 (No Known Allergies) Date Reviewed: 07/06/2024 Reviewed by: Guerline Gentile [facility] - Fully Assessed Visit Diagnosis:Screening for genitourinary condition [Z13.89] Order(s):URINALYSIS, REFLEX MICROSCOPIC [ROX0627] Order #: [id number]. #:[id number] Prescriptions as of 07/09/2024 - hydrOXYzine HCl [...] atrial fibrillation [Z98.890, Z*03/06/2024 Encounter Status:Closed by ARMANDO JONESUSER on 07/09/24 [facility] 06-25-2024 Nurse Note EKG done as ordered, transmitted to [facility]. Briana Castillo MA [facility] 06-25-2024 Nurse Note EKG done as ordered, transmitted to [facility]. Briana Castillo MA documented in this encounter [facility] 06-18-2024 Telephone encounter Note The following approved medication requests have been transmitted electronically. Requested Prescriptions Signed Prescriptions Disp Refills predniSONE (DELTASONE) 5 mg tablet 90 tablet 3 Sig: take 1 tablet by mouth once daily Authorizing Provider: USMAN LOWRY sulfamethoxazole-trimethoprim (BACTRIM) 400-80 mg per tablet 90 tablet 3 Sig: take 1 tablet by mouth once daily Authorizing Provider: USMAN LOWRY APRN.STEM DRYER MAINTAINER [facility] 06-18-2024 Miscellaneous Notes The following approved medication requests have been transmitted electronically. Requested Prescriptions Signed Prescriptions Disp Refills predniSONE (DELTASONE) 5 mg tablet 90 tablet 3 Sig: take 1 tablet by mouth once daily Authorizing Provider: USMAN LOWRY sulfamethoxazole-trimethoprim (BACTRIM) 400-80 mg per tablet 90 tablet 3 Sig: take 1 tablet by mouth once daily Authorizing Provider: USMAN LOWRY APRN.STEM DRYER MAINTAINER [facility] 06/30/2023 Patient phones requesting refills as follows: [...] advise. Randy Arias documented in this encounter [facility] 06-17-2024 Telephone encounter Note [facility] 06/30/2023 Patient phones requesting refills as follows: [...] daily Please review and advise. Randy Arias [facility] 05-14-2024 Telephone encounter Note Received request [...] 1.55 (H) 0.73 - 1.22 mg/dL Final [facility] 05-14-2024 Miscellaneous Notes Received request for [...] 1.22 mg/dL Final documented in this encounter [facility] 04-09-2024 Telephone encounter Note Prescription refill approved on April 09, 2024 and routed to pharmacy to be filled Samara Fernandez PA-C [facility] Work Phone: 04-09-2024 Miscellaneous Notes Prescription refill approved on April 09, 2024 and routed to pharmacy to be filled Samara Fernandez PA-C Patient needs new script sent to [facility] as [facility] closed. Patient only has [...] 2024 9:18 AM documented in this encounter [facility] 04-09-2024 Telephone encounter Note Patient needs new script sent to [facility] as [facility] closed. Patient only has [...] Mary Mondragon April 09, 2024 9:18 AM [facility] 03-18-2024 Instructions Melisa Briceño APRN.CNP - 03/18/2024 2:33 PM EDT Cardioversion Instructions: Nothing to eat or drink after midnight. You may take your medications in the morning with a small sip of water Must have a local delivery truck driver. documented in this encounter [facility] 03-18-2024 History of Present illness Narrative Images from the original note were not included. [facility] [place] Department of Cardiovascular Medicine SECTION OF ELECTROPHYSIOLOGY AND PACING OUTPATIENT VISIT DATE March 18, 2024 OUTPATIENT VISIT TYPE ESTABLISHED PRIMARY CARE PHYSICIAN: [place] [address] CHIEF COMPLAINT: Follow Up HISTORY OF PRESENT ILLNESS: Mr. Rosen is a 68 year old male, patient of Dr. Pablo and Dr. Scott, who presents today for a cardiovascular medicine follow-up visit regarding atrial fibrillation s/p EPS:PVI 6.28. He since has had recurrence of atrial fibrillation and was seen in [facility] ER. PMH: Persistent atrial fibrillation s/p EPS:PVI, reported CAD, hypertension, dyslipidemia, HFmrEF (~45%), polycystic renal disease s/p renal transplant, PAST MEDICAL HISTORY Diagnosis Date Coronary atherosclerosis of unspecified type of vessel, hooper bay or graft Mild 3-vessel Coronary artery disease [...] Testing. IMPRESSION/PLAN: Persistent atrial fibrillation s/p EPS:PVI [id number]: 3 (Age, HTN, PVD)--Xarelto 20 mg every day with dinner ECG today demonstrates atrial fibrillation VR 94 Recurrence of atrial fibrillation s/p PVI. Discussed plan with food safety coordinator and Dr. Pablo--will start Amiodarone 200 mg BID x7 days, then 200 mg daily. He will have tacrolimus level drawn in ~2 weeks. I ordered this and have his food safety coordinator cc'd on them. [facility]3 weeks Follow up with Dr. Pablo in 3 months. CONTACT INFORMATION: Melisa Briceño APRN.CNP Cardiology [address] [facility] [address] Dept: [phone] documented in this encounter [facility] 03-18-2024 Note HNO ID: [id number] Author: MELISA BRICEÑO APRN.CNP Service: ? Author Type: Nurse Practitioner Type: Progress Notes Filed: 03/18/2024 16:07 Note Text: [facility] [place] Department of Cardiovascular Medicine SECTION OF ELECTROPHYSIOLOGY AND PACING OUTPATIENT VISIT DATE March 18, 2024 OUTPATIENT VISIT TYPE ESTABLISHED PRIMARY CARE [place]YSICIAN: [place] [address] CHIEF COMPLAINT: Follow Up HISTORY OF PRESENT ILLNESS: Mr. Rosen is a 68 year old male, patient of Dr. Pablo and Dr. Scott, who presents today for a cardiovascular medicine follow-up visit regarding atrial fibrillation s/p EPS:PVI 6.28. He since has had recurrence of atrial fibrillation and was seen in [facility] ER. PMH: Persistent atrial fibrillation s/p EPS:PVI, reported CAD, hypertension, dyslipidemia, HFmrEF (~45%), polycystic renal disease s/p renal transplant, PAST MEDICAL HISTORY Diagnosis Date Coronary atherosclerosis of unspecified type of vessel, hooper bay or graft Mild 3-vessel Coronary artery disease [...] is mildly dilated. (more content not included)... [facility] 03-12-2024 Telephone encounter Note Merlin, We received a request for a PET Rest/Stress. Per our scheduling protocol if the LVEF is 50% or less we will need a PET CARDIAC Viability Order ([id number]). LVEF is 45%. Please place the additional order and advise once completed. Danielle Pichardo [facility] Work Phone: 03-12-2024 Miscellaneous Notes Merlin, We received a request for a PET Rest/Stress. Per our scheduling protocol if the LVEF is 50% or less we will need a PET CARDIAC Viability Order ([id number]). LVEF is 45%. Please place the additional order and advise once completed. Danielle Pichardo This form is used for MAIN CAMPUS APPOINTMENTS ONLY. Is this request for a [facility] [place] PET scan appointment? Yes: Commission Broker: Belen Caldwell Requesting Person (Last Name, First Name): Emanuel Scott MD Area Code + Phone/Pager: [phone] Who do we call to schedule this appointment? Patient Requesting Staff Emanuel Scott MD Area Code + Phone/Pager: [phone] PET Orders (A delay in scheduling will [...] day/next day medically urgent scans please call [phone] to expedite LVEF: LV Ejection Fraction (%) [...] Cardiac PET scan Questions: Please contact Cardiology [place] reading room at [phone] Additional comments: n/a Send requests to P CARDIAC PET documented in this encounter [facility] 03-12-2024 Telephone encounter Note This form is used for MAIN CAMPUS APPOINTMENTS ONLY. Is this request for a [facility] [place] PET scan appointment? Yes: Commission Broker: Belen Caldwell Requesting Person (Last Name, First Name): Emanuel Scott MD Area Code + Phone/Pager: [phone] Who do we call to schedule this appointment? Patient Requesting Staff Emanuel Scott MD Area Code + Phone/Pager: [phone] PET Orders (A delay in scheduling will [...] day/next day medically urgent scans please call [phone] to expedite LVEF: LV Ejection Fraction (%) [...] Cardiac PET scan Questions: Please contact Cardiology [place] reading room at [phone] Additional comments: n/a Send requests to P CARDIAC PET [facility] 03-12-2024 History of Present illness Narrative Images from the original note were not included. [facility] [place] SECTION OF REGIONAL CARDIOLOGY OUTPATIENT VISIT DATE March 12, 2024 OUTPATIENT VISIT TYPE Established PRIMARY CARE PHYSICIAN: Kathleen [address] [place] [address] REFERRING PHYSICIAN: Usman Lowry [address] [facility] [address] C/C: Follow-up for atrial fibrillation Last and initial visit with mn November 2023 HISTORY OF PRESENT ILLNESS: Mr. Rosen is a 68 year old male, seen in clinic today for follow-up for atrial fibrillation CV history reviewed, summarized and updated: Initial visit with mn in Sep 2023-noted to be in Afib [...] Coronary atherosclerosis of unspecified type of vessel, hooper bay or graft Mild 3-vessel Coronary artery disease [...] mild decline in LVEF at around 45%. [id number] score of 2, primarily with history of [...] Emanuel Scott MD documented in this encounter [facility] 03-12-2024 Note HNO ID: [id number] Author: EMANUEL SCOTT MD Service: ? Author Type: Physician Type: Progress Notes Filed: 03/12/2024 10:07 Note Text: [facility] [place] SECTION OF REGIONAL CARDIOLOGY OUTPATIENT VISIT DATE March 12, 2024 OUTPATIENT VISIT TYPE Established PRIMARY CARE PHYSICIAN: [place] [address] REFERRING PHYSICIAN: Usman Lowry [address] [facility] [address] C/C: Follow-up for atrial fibrillation Last and initial visit with me November 2023 HISTORY OF PRESENT ILLNESS: Mr. Rosen is a 68 year old male, seen in clinic today for follow-up for atrial fibrillation CV history reviewed, summarized and updated: Initial visit with mn in Sep 2023-noted to be in Afib [...] Coronary atherosclerosis of unspecified type of vessel, hooper bay or graft Mild 3-vessel Coronary artery disease [...] UTI noted, but (more content not included)... [facility] 03-11-2024 Telephone encounter Note Received call [...] Amiodarone for short term therapy to facilitate church and maintenance of sinus rhythm during ~3 month blanking period s/p PVI and he agreed that such would be appropriate provided that we discuss this with his nephology transplant team to ensure there will be no significant interaction with Cellcept and tacrolimus. I will reach out ot this team and obtain their opinion prior to starting. Melisa Briceño APRN.STEM DRYER MAINTAINER [facility] Work Phone: 03-11-2024 Miscellaneous Notes Received [...] Amiodarone for short term therapy to facilitate church and maintenance of sinus rhythm during ~3 month blanking period s/p PVI and he agreed that such would be appropriate provided that we discuss this with his nephology transplant team to ensure there will be no significant interaction with Cellcept and tacrolimus. I will reach out ot this team and obtain their opinion prior to starting. Melisa Briceño APRN.STEM DRYER MAINTAINER documented in this encounter [facility] 03-06-2024 Note HNO ID: [id number] Author: ?, ?, ? Service: ? Author [...] 81 mg chewable tablet Radha Her PAGER: [id number] March 09, 2024 3:43 PM [facility] 03-05-2024 Note HNO ID: [id number] Author: BARBARA AZUL AA Service: ? Author Type: Carpenter Packing Type: Anesthesia Procedure Notes Filed: 03/05/2024 14:04 [...] Successful intubation technique: video laryngoscopy Devices used: [place]ague Endotracheal tube insertion site: oral Blade: Alejandro [...] March 05, 2024 TIME: 2:03 PM CSN: [id number] [facility] 01-21-2024 Telephone encounter Note Called and spoke to patient and scheduled his pvi ablation with Dr Pablo for February 10 at [facility]. Patient given instructions and sent mychart. Folllow up scheduled. [facility] 01-21-2024 Telephone encounter Note ----- Message from MINDY May sent at 01/21/2024 12:16 PM EDT ----- Regarding: FW: PVI 02/10 ----- Message ----- From: Wei Pablo MD Sent: 01/15/2024 1:45 PM EDT To: MINDY May; Karlene Mondragon; # Subject: PVI Dot phrase for pVI. He would prefer to be 2nd round- He lives in [place] ( more [address] [facility] EPS Lab Request: EPS Patient: Link Rosen Requested by Wei Pablo MD Requesting Physician: Dr Michael Scott Procedure Physician: Wei Pablo MD Procedure Requested: AFIB CPT:99420 Anesthesia type: General Date of Last H&P? 01/2024 Indications / Dx for Procedure: A-Fib Procedure Time Frame: 3-4 weeks Estimated length of case: 2 HOURS Mapping System: Biosense Payne (CARTO) Special Needs: ICE (intracardiac echo), enso etm esophageal cooling Potential Research Patient? No Type of bed needed? OVERNIGHT Medication to be stopped(please specify medication/timeframe): No [facility] 01-21-2024 Miscellaneous Notes Called and spoke to patient and scheduled his pvi ablation with Dr Pablo for February 10 at [facility]. Patient given instructions and sent mychart. Folllow up scheduled. ----- Message from MINDY May sent at 01/21/2024 12:16 PM EDT ----- Regarding: FW: PVI 02/10 ----- Message ----- From: Wei Pablo MD Sent: 01/15/2024 1:45 PM EDT To: MINDY May; Karlene Mondragon; # Subject: PVI Dot phrase for pVI. He would prefer to be 2nd round- He lives in [place] ( more than [address] [facility] EPS Lab Request: EPS Patient: Link Rosen Requested by Wei Pablo MD Requesting Physician: Dr Michael Scott Procedure Physician: Wei Pablo MD Procedure Requested: AFIB CPT:08366 Anesthesia type: General Date of Last H&P? 01/2024 Indications / Dx for Procedure: A-Fib Procedure Time Frame: 3-4 weeks Estimated length of case: 2 HOURS Mapping System: Biosense Payne (CARTO) Special Needs: ICE (intracardiac echo), enso etm esophageal cooling Potential Research Patient? No Type of bed needed? OVERNIGHT Medication to be stopped(please specify medication/timeframe): No documented in this encounter [facility] 01-15-2024 History of Present illness Narrative Images from the original note were not included. [facility] [place] SECTION OF REGIONAL CARDIOLOGY OUTPATIENT VISIT DATE January 15, 2024 OUTPATIENT VISIT TYPE NEW PRIMARY CARE PHYSICIAN: [place] [address] A written report of the findings and recommendations will be sent to the requesting provider via shared medical record or via [employer]PS. Patient is being seen at the request of Dr Scott for Afib HISTORY OF PRESENT ILLNESS: Mr. Rosen is a 68 year old male who lives in [place] with HTN, Polycystic kidney s/p renal transplant. [...] proceed. CKD S/p renal transplant. NICM: Ramsey sanchez mediated. Clinically euvolemic. For afib ablation as [...] VENTRICULAR RESPONSE Confirmed by KODAK GRIGGS MDNY ([id number]) on 12/26/2023 6:35:59 PM PAST CARDIAC HISTORY: See below PAST MEDICAL HISTORY Diagnosis Date Coronary atherosclerosis of unspecified type of vessel, hooper bay or graft Mild 3-vessel Coronary artery disease [...] Reported on 11/10/2023) documented in this encounter [facility] 12-26-2023 History of Present illness Narrative [...] PATIENT PRESENTS WITH AN IMPLANTABLE OR ATTACHED WATER RIGHTS SPECIALIST: No CREATININE: Creatinine Date Value Ref Range [...] STATUS: Discontinued PROCEDURE TYPE: NM Stress: 16mCi [id number] was administered IV for Rest Imaging at [...] due to afib. will be rescheduled at [facility] and told to take meds NO Images obtained ADDITIONAL EVENT DETAILS: N/A SIGNATURE: Suzette Barr PATIENT NAME: Link Rosen DATE: December 26, 2023 TIME: 1:53 PM PAGER/CONTACT #: A Diagnostic radioactive procedure has taken place, with no further precautions necessary other than routine body substance precautions. More information regarding radiation safety can be found using this link: [email or web address] SIGNATURE: Suzette Barr PATIENT NAME: Link Rosen DATE: December 26, 2023 TIME: 12:52 PM PAGER/CONTACT #: documented in this encounter [facility] 12-26-2023 Nurse Note Pt presented for nuclear medicine stress. Upon hooking patient up to three lead monitor for nuclear camera, CADMIUM LIQUOR MAKER Tequila noticed that pt's HR was jumping [...] via secure chat. documented in this encounter [facility] 11-26-2023 Miscellaneous Notes The following approved medication requests have been transmitted electronically. Requested Prescriptions Pending Prescriptions Disp Refills mycophenolate mofetil (CELLCEPT) 250 mg capsule 360 capsule 3 Sig: Take 2 capsules by mouth two times a day. Usman Lowry APRN.SEAN Patient's request for medication is as follows: Requested Prescriptions Pending Prescriptions Disp Refills mycophenolate mofetil (CELLCEPT) 250 mg capsule 360 capsule 3 Sig: Take 2 capsules by mouth two times a day. Please approve the above prescription(s) to electronically send to pharmacy. MINDY Kaur documented in this encounter [facility] 11-23-2023 Miscellaneous Notes The following approved medication requests have been transmitted electronically. Requested Prescriptions Signed Prescriptions Disp Refills mycophenolate mofetil (CELLCEPT) 250 mg capsule 360 capsule 3 Sig: Take 2 capsules by mouth two times a day. Authorizing Provider: USMAN LOWRY APRN.SEAN The following approved medication requests have been transmitted electronically to the mail order pharmacy. Requested Prescriptions Pending Prescriptions Disp Refills mycophenolate mofetil (CELLCEPT) 250 mg capsule 360 capsule 3 Sig: Take 2 capsules by mouth two times a day. MINDY Kaur documented in this encounter [facility] 11-10-2023 History of Present illness Narrative Images from the original note were not included. [facility] SECTION OF REGIONAL CARDIOLOGY OUTPATIENT VISIT DATE November 10, 2023 OUTPATIENT VISIT TYPE Established PRIMARY CARE PHYSICIAN: Kathleen Sams [address] [place] [id number] REFERRING PHYSICIAN: Usman Lowry [address] [facility] [address] C/C: Follow-up for atrial fibrillation Last and initial visit with mn September 2023 HISTORY OF PRESENT ILLNESS: Mr. Rosen is a 68 year old male, seen in clinic today for follow-up for atrial fibrillation His last and initial visit with mn, noted to be in atrial fibrillation of [...] Coronary atherosclerosis of unspecified type of vessel, hooper bay or graft Mild 3-vessel Coronary artery disease [...] mild decline in LVEF at around 45% [id number] score of 2, primarily with history of [...] Emanuel Scott MD documented in this encounter [facility] 07-01-2023 Nurse Note EKG performed as ordered. Transmitted to [facility] electronically, placed in scanning. Briana Castillo MA documented in this encounter [facility] 06-30-2023 History of Present illness Narrative Patient presents for renal tx follow up care The HPI and Assessment was copied from my previous note dated 07/01/2022 with changes as noted Mr. Link Rosen is a 68 year old male who presents for follow up of a dual adult DD kidney transplant. 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 Had ventral hernia repair in February 2013. Baseline scr 1.2-1.4 Brother had renal tx here in Aug 2020 PAST MEDICAL HISTORY Diagnosis Date Coronary atherosclerosis of unspecified type of vessel, hooper bay or graft Mild 3-vessel Coronary artery disease [...] DNA by PCR 06/05/2021 Test reordered by [facility] hospital. 03/06/2021 Negative for BK virus DNA by [...] noted. RTC [address] Thad Lowry APRN.STEM DRYER MAINTAINER documented in this encounter [facility] 06-26-2023 Miscellaneous Notes The following approved [...] pharmacy. Cabrera Grant documented in this encounter [facility] 12-05-2022 Miscellaneous Notes The following approved medication requests have been transmitted electronically. Requested Prescriptions Signed Prescriptions Disp Refills tacrolimus IR (PROGRAF) 1 mg capsule 270 capsule 3 Sig: Take(1) capsule by mouth twice daily Usman Lowry APRN.CNP documented in this encounter [facility] 11-05-2022 History of Present illness Narrative VIRTUAL VISIT FOLLOW UP PATIENT: Link Rosen [id number] 11/05/2022 This is a virtual visit using [employer] video visit. It required patient-provider interaction for [...] Cribriform pattern 4: No Intraductal carcinoma: No Replacer tumor block to use for additional studies: [...] mm tumor length, 10%). - Percentage of Matthews pattern 4 = <5%. - Cribriform morphology [...] Cribriform pattern 4: No Intraductal carcinoma: No Replacer tumor block to use for additional studies: [...] Past Histories independently gathered by the clinical application support technician including scribe and or medical student and or DESIREE and or resident or fellow and the remaining scribed note accurately describes my personal service to the patient. Giorgio Burks MD, MS [facility] documented in this encounter [facility] 10-17-2022 History of Present illness Narrative [...] Prostate Biopsy Report Name: Link Rosen MR#: [id number] Date: October 16, 2022 DIAGNOSIS: Elevated PSA: 5.77, did not get MRI as planned TRANSRECTAL ULTRASOUND: Documentation images were taken. Yes Surgeon(s)/Proceduralist(s) and Debone Processing Supervisor(s): Surgeon(s) and Role: * Giorgio Burks - [...] Past Histories independently gathered by the clinical application support technician including scribe and or medical student and or DESIREE and or resident or fellow and the remaining scribed note accurately describes my personal service to the patient. Giorgio Burks MD, MS [facility] documented in this encounter [facility] 10-17-2022 Nurse Note Actual procedure/procedure scheduled: [...] This Education Session: None Instruction Provided To:Patient Endoscopy Technican Present: not applicable Discipline: Nursing Learning Topic: Survival Skills: Symptom Management Patient Evaluation: Verbalizes understanding: Yes Supplemental Material Given: Written Material Instructed By Steven Boogie RN In Department Urology . documented in this encounter [facility] 09-16-2022 History of Present illness Narrative [facility] ESTABLISHED [...] 04/24/2009 7.39 7.35 - 7.45 Final Specific [place], Ur Date Value Ref Range Status 07/01/2022 [...] Coronary atherosclerosis of unspecified type of vessel, hooper bay or graft Mild 3-vessel Coronary artery disease [...] is indicated. The company offering this test, [employer], was co-founded by the [facility]. The [facility] has a minority ownership position in the company, so the [facility] indirectly benefits financially from the sale of this test. If you have any questions about this, please ask your doctor or call the [employer] Management and Conflict of Interest Office at [phone]. The precise cost of IsoPSA to an individual patient depends on his specific insurance plan, co-pay provisions, and deductibles, but the maximum miu-el-nlbmqn expense is $450. For eligible patients, the company's financial assistance program can reduce patient exposure to as little as $100. Please contact the patient financial rep at ext [phone] to get an estimate of your vbx-gx-semvas cost. IsoPSA has not yet been cleared or approved by the FDA. IsoPSA is a Lab Developed Test performed in a laboratory by [employer] that is regulated under the Clinical Laboratory Improvement Amendments of 1988 (or CLIA) and is overseen by the Centers for Medicare and Medicaid Services (CMS) within the U.S. Department of Health and Human Services. I spent a total of 15 minutes on the date of the service which included preparing to see the patient, [id number] patient care, obtaining and/or reviewing separately obtained history, performing a medically appropriate examination, and ordering medications, tests, or procedures. Kristina Whitaker APRN.SEAN documented in this encounter [facility] 03-18-2022 Miscellaneous Notes ROLO: 07/05/21 Patient's [...] pharmacy. Emperatriz Nice documented in this encounter [facility] 02-26-2022 History of Present illness Narrative VIRTUAL VISIT FOLLOW UP PATIENT: Link Rosen [id number] 02/26/2022 This is a virtual visit using [employer] video visit. It required patient-provider interaction for [...] Scribed for Dr. Giorgio Burks by Saeed Torres medical support assistant, on February 26, 2022 This visit was conducted as a video visit and lasted 10 minutes. I agree with the Chief Complaint, ROS, and Past Histories independently gathered by the clinical application support technician including scribe and or medical student and or DESIREE and or resident or fellow and the remaining scribed note accurately describes my personal service to the patient. Giorgio Burks MD, MS [facility] documented in this encounter [facility] 01-31-2022 History of Present illness Narrative [...] Coronary atherosclerosis of unspecified type of vessel, hooper bay or graft Mild 3-vessel Coronary artery disease [...] al. N Engl J Med(2004)350:2239-46 and Polina RIGO et al. J Urol(2003)169:125-29. Outside and [...] Past Histories independently gathered by the clinical application support technician including scribe and or medical student and or DESIREE and or resident or fellow and the remaining scribed note accurately describes my personal service to the patient. Giorgio Burks MD, MS [facility] ADDENDUM PSA was only 3.6 on follow up so ISOPSA was not done. Follow up in 6 moths with PSA Prostate Cancer Educational Materials Prostate Cancer [facility] http://my.[facility].org/disorde rs/prostate_cancer/hic_prostate_cance r_basics.aspx Prostate Cancer Treatment Guide (download) [facility] http://www.[facility].org/lp/pro state-cancer/index.html National Cancer [place] Treatment Choices for Early-Stage Prostate Cancer https://www.cancer.gov/types/prostate /patient/qlhpjcwr-oxjxgiwou-vlr National Cancer [place] Coping with Cancer https://www.cancer.gov/about-cancer/c oping documented in this encounter [facility] 01-30-2022 Note PROCEDURE: XR ANKLE LT [...] authenticated by: JAN CARNES Date: 2022-01-30 11:51 [facility] 07-27-2021 Note PROCEDURE: XR ANKLE LT [...] by: MUSTAPHA BAUGH Date: 2021-07-27 07:29 [facility] Evaluation note Diagnosis Elevated prostate [...] other prophylactic chemotherapy [facility]* Diagnosis Kidney replaced by transplant- Primary Hypophosphatemia Disorders of phosphorus metabolism Hypomagnesemia Disorders of magnesium metabolism Irregular heartbeat Cardiac dysrhythmia, unspecified Aftercare following organ transplant documented in this encounter [facility] note* Diagnosis Irregular heartbeat- Primary Cardiac dysrhythmia, unspecified Polycystic kidney disease Polycystic kidney, unspecified type documented in this encounter [facility] note* Diagnosis Atrial fibrillation by electrocardiogram (HCC)- Primary Atrial fibrillation documented in this encounter [facility] note* Diagnosis Persistent atrial fibrillation (HCC)- Primary Atrial fibrillation Abnormal EKG Nonspecific abnormal electrocardiogram (ECG) (EKG) Encounter for lipid screening for cardiovascular disease Screening for lipoid disorders Cardiomyopathy, unspecified type (HCC) 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) documented in this encounter [facility] note* Diagnosis Kidney replaced by transplant Need for prophylactic immunotherapy documented in this encounter [facility] note* Diagnosis Persistent atrial fibrillation (HCC) Atrial fibrillation Abnormal EKG Nonspecific abnormal electrocardiogram (ECG) (EKG) documented [facility] encounter [facility]* Diagnosis AF (paroxysmal atrial fibrillation) (HCC)- Primary Atrial fibrillation documented in this encounter [facility] note* Diagnosis AF (paroxysmal atrial fibrillation) (HCC)- Primary Atrial fibrillation Atrial fibrillation, unspecified type (HCC) documented in this encounter [facility]* Diagnosis S/P ablation of atrial fibrillation- Primary Other postprocedural status Persistent atrial fibrillation (HCC) Atrial fibrillation Abnormal EKG Nonspecific abnormal electrocardiogram (ECG) (EKG) Cardiomyopathy, unspecified type (HCC) 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) documented [facility] encounter [facility] note* Diagnosis Heart disease- Primary Heart disease, unspecified documented in this encounter [facility] note* Diagnosis Atrial fibrillation, persistent (HCC)- Primary Atrial fibrillation S/P ablation of atrial fibrillation Other postprocedural status S/p cadaver renal transplant Kidney replaced by transplant Current use of joint terminal attack controller anticoagulation Long-term (current) use of anticoagulants Primary hypertension Unspecified essential hypertension documented in this encounter [facility] note* Diagnosis Persistent atrial fibrillation (HCC) Atrial fibrillation Abnormal EKG Nonspecific abnormal electrocardiogram (ECG) (EKG) [facility] Kidney replaced by transplant Need for pneumocystis prophylaxis Need for other prophylactic chemotherapy [facility] Diagnosis Irregular heartbeat Cardiac dysrhythmia, unspecified [facility] Diagnosis Need for influenza vaccination- Primary [...] stage renal disease [facility] Diagnosis Screening for genitourinary condition Screening for other and unspecified genitourinary condition [facility] Diagnosis Cardiomyopathy, unspecified type (HCC)- Primary 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) S/P ablation of atrial fibrillation Other postprocedural status PAF (paroxysmal atrial fibrillation) (HCC) Atrial fibrillation On continuous oral anticoagulation Long-term (current) use of anticoagulants [facility] Diagnosis Hypomagnesemia- Primary Disorders of magnesium metabolism Kidney replaced by transplant [facility] Diagnosis Kidney replaced by transplant [facility] Diagnosis Atrial fibrillation, persistent (HCC)- Primary Atrial fibrillation Current use of joint terminal attack controller anticoagulation Long-term (current) use of anticoagulants S/P ablation of atrial fibrillation Other postprocedural status Primary hypertension Unspecified essential hypertension NICM (nonischemic cardiomyopathy) ([facility]) Other primary cardiomyopathies [facility] Diagnosis Kidney replaced by transplant Need for prophylactic immunotherapy [facility] Diagnosis Atrial fibrillation, persistent (HCC)- Primary Atrial fibrillation [facility] Diagnosis 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) Kidney replaced by transplant Need for prophylactic immunotherapy [facility] Diagnosis Cardiomyopathy, unspecified type (HCC) Aneurysm of ascending aorta without rupture [facility] Diagnosis PAF (paroxysmal atrial fibrillation) (HCC)- Primary Atrial fibrillation Other cardiomyopathy (HCC) Aneurysm of ascending aorta without rupture S/P ablation of atrial fibrillation Other postprocedural status documented in this encounter [facility] for referral (narrative)* Outpatient Procedure (Routine) - Pending Review Specialty Diagnoses / Procedures Referred By La martin Referred To Contact [facility] Diagnoses Encounter for observation for other suspected diseases and conditions ruled out Procedures PROSTATE BIOPSY GUKI PROSTATE NEEDLE BIOPSY ANY APPROACH US, TRANSRECTAL URNLS DIP STICK/TABLET RGNT AUTO W/O MICROSCOPY US GUIDANCE NEEDLE PLACEMENT IMG S&I Giorgio Burks MD [address] [place] [address] [address] Referral ID Status Reason Start Date Expiration Date Visits Requested Visits Authorized [id number] Pending Review Auto-Generat ed Referral 09/19/2022 09/19/2023 1 1 * MRI/CT (Routine) - Pending Review Specialty Diagnoses / Procedures Referred By La martin Referred To Contact [facility] IMAG[facility] Diagnoses Encounter for observation for other suspected diseases and conditions ruled out Procedures MRI PROSTATE WO/W IVCON MRI PELVIS W/O & W/CONTRAST MATERIAL Giorgio Burks MD [address] [place] [address] Mr Imaging Referral ID Status Reason Start Date Expiration Date Visits Requested Visits Authorized [id number] Pending Review Auto-Generat ed Referral 09/19/2022 10/19/2023 1 1 [facility] for referral (narrative)* Outpatient Procedure (Routine) - Pending Review Specialty Diagnoses / Procedures Referred By La martin Referred To Contact [facility] Diagnoses AF (paroxysmal atrial fibrillation) (HCC) Procedures ECG COMPLETE ECG ROUTINE ECG W/LEAST 12 LDS W/I&[place] [address] [place] [address] [facility] [address] [address] Referral ID Status Reason Start Date Expiration Date Visits Requested Visits Authorized [id number] Pending Review Auto-Generat ed Referral 01/15/2024 01/14/2025 1 1 [facility] for referral (narrative)* Diagnostic Procedure Only (Routine) - Pending Review Specialty Diagnoses / Procedures Referred By Contac t Referred To Contact [facility] Diagnoses Persistent atrial fibrillation (HCC) Abnormal EKG S/P ablation of atrial fibrillation Procedures NM PET/CT CARDIAC PERF REST/STRESS MYOCRD IMG PET PRFUJ FLOOR NURSE STD RST & STRS CNCRNT CT Emanuel Scott MD [address] [place] [address] [facility] [address] [place] [address] Referral ID Status Reason Start Date Expiration Date Visits Requested Visits Authorized [id number] Pending Review Auto-Generat ed Referral 03/12/2024 04/11/2025 1 1 * Outpatient Procedure (Routine) - Pending Review Specialty Diagnoses / Procedures [facility] Diagnoses Persistent atrial fibrillation (HCC) Abnormal EKG Procedures ECG COMPLETE ECG ROUTINE ECG W/LEAST 12 LDS W/I&R Emanuel Scott MD [address] [place] [address] [facility] [place] [address] [place] [address] Referral ID Status Reason Start Date Expiration Date Visits Requested Visits Authorized [id number] Pending Review Auto-Generat ed Referral 03/12/2024 03/12/2025 1 1 [facility] for referral (narrative)* Diagnostic Procedure Only (Routine) - Pending Review Specialty Diagnoses / Procedures [facility] To [facility] Diagnoses Heart disease Procedures NM PET/CT CARDIAC VIABILITY MYOCRD IMG PET PRFUJ W/METAB 2RTRACER CNCRNT CT Emanuel Scott MD [address] [place] [address] [facility] [address] [place] [address] Referral ID Status Reason Start Date Expiration Date Visits Requested Visits Authorized [id number] Pending Review Auto-Generat ed Referral 03/12/2024 04/11/2025 1 1 [facility] for referral (narrative)* Outpatient Procedure (Routine) - New Request Specialty Diagnoses / Procedures Referred By Contac t Referred To Contact [facility] [place] Diagnoses Atrial fibrillation, persistent (HCC) AF (paroxysmal atrial fibrillation) (HCC) SVT (supraventricular tachycardia) (HCC) PVC (premature ventricular contraction) VT (ventricular tachycardia) (HCC) Procedures ECG COMPLETE ECG ROUTINE ECG W/LEAST 12 LDS W/I&R Melisa Briceño APRN.STEM DRYER MAINTAINER [address] [place] [address] [facility] [address] [address] Referral ID Status Reason Start Date Expiration Date Visits Requested Visits Authorized [id number] New Request Auto-Generat ed Referral 03/18/2024 03/18/2025 1 1 [facility] for referral (narrative)* Outpatient Procedure (Routine) - Authorized Specialty Diagnoses / Procedures Referred By Contac t Referred To Contact [facility] [place] Diagnoses Cardiomyopathy, unspecified type (HCC) 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) Procedures ECHO ECHO TTHRC R-T 2D W/WOM-MODE COMPL SPEC&COLR D Emanuel Scott MD [address] [place] [address] [facility] [address] [address] Referral ID Status Reason Start Date Expiration Date Visits Requested Visits Authorized [id number] Authorized Auto-Generat ed Referral 01/24/2025 07/27/2025 1 1 [facility] for visit Narrative* Diagnostic Procedure Only (Routine) - Closed Specialty Diagnoses / Procedures Referred By La martin Referred To Contact [facility] Diagnoses Persistent atrial fibrillation (HCC) Abnormal EKG Procedures NM CARDIAC PERF STRESS/PHARM MYOCARDIAL SPECT MULTIPLE STUDIES Emanuel Scott MD [address] [facility] [place] [address] Molecular & Functional Imaging [address] [id number] Referral ID Status Reason Start Date Expiration Date V isits Requested Visits Authorized [id number] Closed Auto-Generate d Referral 11/10/2023 12/09/2024 1 1 [facility] for visit Narrative* Outpatient Procedure (Routine) - Pending Review Specialty Diagnoses / Procedures Referred By La martin Referred To Contact [facility] [place] Diagnoses Irregular heartbeat Procedures ECG COMPLETE ECG ROUTINE ECG W/LEAST 12 LDS W/I&R Usman Lowry, RESTAURANT HOU[employer]Y TEAM MEMBER.STEM DRYER MAINTAINER [address] [place] [address] [facility] [place] [address] [place] [address] Referral ID Status Reason Start Date Expiration Date Visits Requested Visits Authorized [id number] Pending Review Auto-Generat ed Referral 3 06/29/2024 1 1 [facility] for visit Narrative* Outpatient Procedure (Routine) - Closed Specialty Diagnoses / Procedures Referred By La martin Referred To Contact [facility] [place] Diagnoses Cardiomyopathy, unspecified type (HCC) Aneurysm of ascending aorta without rupture Procedures ECHO ECHO TTHRC R-T 2D W/WOM-MODE COMPL SPEC&COLR D Emanuel Scott MD [address] [place] [address] Phone: tel: fax: [facility] [place] [address] [place] [address] Referral ID Status Reason Start Date Expiration Date V isits Requested Visits Authorized [id number] Closed Auto-Generate d Referral 01/24/2025 07/27/2025 1 1 [facility] Summary Purpose Family History No Family History Records FoundNo Family History Records FoundNo Family History Records FoundNo Family History Records Found Advance Directives Documents on File Type Date Recorded Patient Replacer Expl anation Advance Directive(s) Reason for Referral Specialty Diagnoses / Procedures Referred By Contac t Referred To Contact Cardiology Diagnoses Atrial fibrillation by electrocardiogram (HCC) Procedures CONSULT TO CARDIOLOGY OFFICE/OUTPATIENT [facility] 60-74 MINUTES Usman Lowry, RESTAURANT HOURLY TEAM MEMBER.STEM DRYER MAINTAINER [address] [place] [address] Referral ID Status Reason Start Date Expiration Date Visits Requested Visits Authorized [id number] Authorized PCP Requested Referral 07/11/2023 07/10/2024 1 1 Specialty Diagnoses / Procedures Referred By Contac t Referred To Contact Diagnoses Persistent atrial fibrillation (HCC) Procedures CONSULT TO ELECTROPHYSIOLOGY OFFICE/OUTPATIENT [facility] [address] [place] [address] [place] [address] Referral ID Status Reason Start Date Expiration Date Visits Requested Visits Authorized [id number] Authorized PCP Requested Referral 11/10/2023 11/09/2024 1 1 Specialty Diagnoses / Procedures Referred By Yolandaac t Referred To Contact [facility] Diagnoses Persistent atrial fibrillation (HCC) Abnormal EKG Procedures NM CARDIAC PERF STRESS/PHARM MYOCARDIAL SPECT MULTIPLE STUDIES Emanuel Scott MD [address] [place] [address] Molecular [facility] Functional [facility] [address] [place] [address] Referral ID Status Reason Start Date Expiration Date Visits Requested Visits Authorized [id number] Authorized Auto-Generat ed Referral 11/10/2023 12/09/2024 1 1 Specialty Diagnoses / Procedures Referred By Contac t Referred To Contact [facility] Diagnoses Persistent atrial fibrillation (HCC) Abnormal EKG Procedures ECG COMPLETE ECG ROUTINE ECG W/LEAST 12 LDS W/I&R Emanuel Scott MD [address] [place] [address] [facility] [place] [address] [place] [address] [place] [address] Referral ID Status Reason Start Date Expiration Date Visits Requested Visits Authorized [id number] Pending Review Auto-Generat ed Referral 11/10/2023 11/09/2024 1 1 Additional Source Comments (unrecognized sect ion and content) No Status Records FoundNo Status Records FoundNo Status Records FoundNo Status Records Found INFORMATION SOURCE (unrecogn ized section and content) DATE CREATED AUTHOR 09/26/2021 [facility] DATE CREATED AUTHOR AUTHOR'S ORGANIZ ATION 04/22/2022 [facility] DATE CREATED AUTHOR AUTHOR'S ORGANIZ ATION 10/04/2024 [facility] DATE CREATED AUTHOR AUTHOR'S ORGANIZ ATION 03/05/2025 [facility] Source Comments (unrecognize d section and content) In the event this informatio n is protected by the Federal Confidentiality of Alcohol and Drug Abuse Patient Records regulations: The Federal rules restrict any use of the information to criminally investigate or prosecute any alcohol or drug abuse patient.[facility] the event this information is protected by the Federal Confidentiality of Alcohol and Drug Abuse Patient Records regulations: The Federal rules restrict any use of the information to criminally investigate or prosecute any alcohol or drug abuse patient.[facility] HospitalIn the event this information is protected by the Federal Confidentiality of Alcohol and Drug Abuse Patient Records regulations: The Federal rules restrict any use of the information to criminally investigate or prosecute any alcohol or drug abuse patient.[facility] the event this information is protected by the Federal Confidentiality of Alcohol and Drug Abuse Patient Records regulations: The Federal rules restrict any use of the information to criminally investigate or prosecute any alcohol or drug abuse patient.[facility] HospitalIn the event this information is protected by the Federal Confidentiality of Alcohol and Drug Abuse Patient Records regulations: The Federal rules restrict any use of the information to criminally investigate or prosecute any alcohol or drug abuse patient.[facility] HospitalIn the event this information is protected by the Federal Confidentiality of Alcohol and Drug Abuse Patient Records regulations: The Federal rules restrict any use of the information to criminally investigate or prosecute any alcohol or drug abuse patient.[facility] HospitalIn the event this information is protected by the Federal Confidentiality of Alcohol and Drug Abuse Patient Records regulations: The Federal rules restrict any use of the information to criminally investigate or prosecute any alcohol or drug abuse patient.[facility] HospitalIn the event this information is protected by the Federal Confidentiality of Alcohol and Drug Abuse Patient Records regulations: The Federal rules restrict any use of the information to criminally investigate or prosecute any alcohol or drug abuse patient.[facility] HospitalIn the event this information is protected by the Federal Confidentiality of Alcohol and Drug Abuse Patient Records regulations: The Federal rules restrict any use of the information to criminally investigate or prosecute any alcohol or drug abuse patient.[facility] HospitalIn the event this information is protected by the Federal Confidentiality of Alcohol and Drug Abuse Patient Records regulations: The Federal rules restrict any use of the information to criminally investigate or prosecute any alcohol or drug abuse patient.[facility] HospitalIn the event this information is protected by the Federal Confidentiality of Alcohol and Drug Abuse Patient Records regulations: The Federal rules restrict any use of the information to criminally investigate or prosecute any alcohol or drug abuse patient.[facility] HospitalIn the event this information is protected by the Federal Confidentiality of Alcohol and Drug Abuse Patient Records regulations: The Federal rules restrict any use of the information to criminally investigate or prosecute any alcohol or drug abuse patient.[facility] HospitalIn the event this information is protected by the Federal Confidentiality of Alcohol and Drug Abuse Patient Records regulations: The Federal rules restrict any use of the information to criminally investigate or prosecute any alcohol or drug abuse patient.[facility] HospitalIn the event this information is protected by the Federal Confidentiality of Alcohol and Drug Abuse Patient Records regulations: The Federal rules restrict any use of the information to criminally investigate or prosecute any alcohol or drug abuse patient.[facility] HospitalIn the event this information is protected by the Federal Confidentiality of Alcohol and Drug Abuse Patient Records regulations: The Federal rules restrict any use of the information to criminally investigate or prosecute any alcohol or drug abuse patient.[facility] HospitalIn the event this information is protected by the Federal Confidentiality of Alcohol and Drug Abuse Patient Records regulations: The Federal rules restrict any use of the information to criminally investigate or prosecute any alcohol or drug abuse patient.[facility] HospitalIn the event this information is protected by the Federal Confidentiality of Alcohol and Drug Abuse Patient Records regulations: The Federal rules restrict any use of the information to criminally investigate or prosecute any alcohol or drug abuse patient.[facility] HospitalIn the event this information is protected by the Federal Confidentiality of Alcohol and Drug Abuse Patient Records regulations: The Federal rules restrict any use of the information to criminally investigate or prosecute any alcohol or drug abuse patient.[facility] HospitalIn the event this information is protected by the Federal Confidentiality of Alcohol and Drug Abuse Patient Records regulations: The Federal rules restrict any use of the information to criminally investigate or prosecute any alcohol or drug abuse patient.[facility] HospitalIn the event this information is protected by the Federal Confidentiality of Alcohol and Drug Abuse Patient Records regulations: The Federal rules restrict any use of the information to criminally investigate or prosecute any alcohol or drug abuse patient.[facility] HospitalIn the event this information is protected by the Federal Confidentiality of Alcohol and Drug Abuse Patient Records regulations: The Federal rules restrict any use of the information to criminally investigate or prosecute any alcohol or drug abuse patient.[facility] HospitalIn the event this information is protected by the Federal Confidentiality of Alcohol and Drug Abuse Patient Records regulations: The Federal rules restrict any use of the information to criminally investigate or prosecute any alcohol or drug abuse patient.[facility] HospitalIn the event this information is protected by the Federal Confidentiality of Alcohol and Drug Abuse Patient Records regulations: The Federal rules restrict any use of the information to criminally investigate or prosecute any alcohol or drug abuse patient.[facility] HospitalIn the event this information is protected by the Federal Confidentiality of Alcohol and Drug Abuse Patient Records regulations: The Federal rules restrict any use of the information to criminally investigate or prosecute any alcohol or drug abuse patient.[facility] HospitalIn the event this information is protected by the Federal Confidentiality of Alcohol and Drug Abuse Patient Records regulations: The Federal rules restrict any use of the information to criminally investigate or prosecute any alcohol or drug abuse patient.[facility] HospitalIn the event this information is protected by the Federal Confidentiality of Alcohol and Drug Abuse Patient Records regulations: The Federal rules restrict any use of the information to criminally investigate or prosecute any alcohol or drug abuse patient.[facility] HospitalIn the event this information is protected by the Federal Confidentiality of Alcohol and Drug Abuse Patient Records regulations: The Federal rules restrict any use of the information to criminally investigate or prosecute any alcohol or drug abuse patient.[facility] HospitalIn the event this information is protected by the Federal Confidentiality of Alcohol and Drug Abuse Patient Records regulations: The Federal rules restrict any use of the information to criminally investigate or prosecute any alcohol or drug abuse patient.[facility] HospitalIn the event this information is protected by the Federal Confidentiality of Alcohol and Drug Abuse Patient Records regulations: The Federal rules restrict any use of the information to criminally investigate or prosecute any alcohol or drug abuse patient.[facility] HospitalIn the event this information is protected by the Federal Confidentiality of Alcohol and Drug Abuse Patient Records regulations: The Federal rules restrict any use of the information to criminally investigate or prosecute any alcohol or drug abuse patient.[facility] HospitalIn the event this information is protected by the Federal Confidentiality of Alcohol and Drug Abuse Patient Records regulations: The Federal rules restrict any use of the information to criminally investigate or prosecute any alcohol or drug abuse patient.[facility] HospitalIn the event this information is protected by the Federal Confidentiality of Alcohol and Drug Abuse Patient Records regulations: The Federal rules restrict any use of the information to criminally investigate or prosecute any alcohol or drug abuse patient.[facility] HospitalIn the event this information is protected by the Federal Confidentiality of Alcohol and Drug Abuse Patient Records regulations: The Federal rules restrict any use of the information to criminally investigate or prosecute any alcohol or drug abuse patient.[facility] HospitalIn the event this information is protected by the Federal Confidentiality of Alcohol and Drug Abuse Patient Records regulations: The Federal rules restrict any use of the information to criminally investigate or prosecute any alcohol or drug abuse patient.[facility] HospitalIn the event this information is protected by the Federal Confidentiality of Alcohol and Drug Abuse Patient Records regulations: The Federal rules restrict any use of the information to criminally investigate or prosecute any alcohol or drug abuse patient.[facility] HospitalIn the event this information is protected by the Federal Confidentiality of Alcohol and Drug Abuse Patient Records regulations: The Federal rules restrict any use of the information to criminally investigate or prosecute any alcohol or drug abuse patient.[facility] HospitalIn the event this information is protected by the Federal Confidentiality of Alcohol and Drug Abuse Patient Records regulations: The Federal rules restrict any use of the information to criminally investigate or prosecute any alcohol or drug abuse patient.[facility] HospitalIn the event this information is protected by the Federal Confidentiality of Alcohol and Drug Abuse Patient Records regulations: The Federal rules restrict any use of the information to criminally investigate or prosecute any alcohol or drug abuse patient.[facility] HospitalIn the event this information is protected by the Federal Confidentiality of Alcohol and Drug Abuse Patient Records regulations: The Federal rules restrict any use of the information to criminally investigate or prosecute any alcohol or drug abuse patient.[facility] HospitalIn the event this information is protected by the Federal Confidentiality of Alcohol and Drug Abuse Patient Records regulations: The Federal rules restrict any use of the information to criminally investigate or prosecute any alcohol or drug abuse patient.[facility] HospitalIn the event this information is protected by the Federal Confidentiality of Alcohol and Drug Abuse Patient Records regulations: The Federal rules restrict any use of the information to criminally investigate or prosecute any alcohol or drug abuse patient.[facility] HospitalIn the event this information is protected by the Federal Confidentiality of Alcohol and Drug Abuse Patient Records regulations: The Federal rules restrict any use of the information to criminally investigate or prosecute any alcohol or drug abuse patient.[facility] HospitalIn the event this information is protected by the Federal Confidentiality of Alcohol and Drug Abuse Patient Records regulations: The Federal rules restrict any use of the information to criminally investigate or prosecute any alcohol or drug abuse patient.[facility] HospitalIn the event this information is protected by the Federal Confidentiality of Alcohol and Drug Abuse Patient Records regulations: The Federal rules restrict any use of the information to criminally investigate or prosecute any alcohol or drug abuse patient.[facility] HospitalIn the event this information is protected by the Federal Confidentiality of Alcohol and Drug Abuse Patient Records regulations: The Federal rules restrict any use of the information to criminally investigate or prosecute any alcohol or drug abuse patient.[facility] HospitalIn the event this information is protected by the Federal Confidentiality of Alcohol and Drug Abuse Patient Records regulations: The Federal rules restrict any use of the information to criminally investigate or prosecute any alcohol or drug abuse patient.[facility] HospitalIn the event this information is protected by the Federal Confidentiality of Alcohol and Drug Abuse Patient Records regulations: The Federal rules restrict any use of the information to criminally investigate or prosecute any alcohol or drug abuse patient.[facility] HospitalIn the event this information is protected by the Federal Confidentiality of Alcohol and Drug Abuse Patient Records regulations: The Federal rules restrict any use of the information to criminally investigate or prosecute any alcohol or drug abuse patient.[facility] HospitalIn the event this information is protected by the Federal Confidentiality of Alcohol and Drug Abuse Patient Records regulations: The Federal rules restrict any use of the information to criminally investigate or prosecute any alcohol or drug abuse patient.[facility] HospitalIn the event this information is protected by the Federal Confidentiality of Alcohol and Drug Abuse Patient Records regulations: The Federal rules restrict any use of the information to criminally investigate or prosecute any alcohol or drug abuse patient.[facility] HospitalIn the event this information is protected by the Federal Confidentiality of Alcohol and Drug Abuse Patient Records regulations: The Federal rules restrict any use of the information to criminally investigate or prosecute any alcohol or drug abuse patient.[facility] HospitalIn the event this information is protected by the Federal Confidentiality of Alcohol and Drug Abuse Patient Records regulations: The Federal rules restrict any use of the information to criminally investigate or prosecute any alcohol or drug abuse patient.[facility] HospitalIn the event this information is protected by the Federal Confidentiality of Alcohol and Drug Abuse Patient Records regulations: The Federal rules restrict any use of the information to criminally investigate or prosecute any alcohol or drug abuse patient.[facility] HospitalIn the event this information is protected by the [facility] Confidentiality of Alcohol and Drug Abuse Patient Records regulations: The Federal rules restrict any use of the information to criminally investigate or prosecute any alcohol or drug abuse patient.[facility] HospitalIn the event this information is protected by the Federal Confidentiality of Alcohol and Drug Abuse Patient Records regulations: The Federal rules restrict any use of the information to criminally investigate or prosecute any alcohol or drug abuse patient.[facility] Care Teams (unrecognized sec tion and content) South Asian History Professor Relationship Specialty Start Date End Date Kathleen Sams PA-C [address] [place] [address] PCP - General Internal Medicine 07/06/18 Usman Lowry, RESTAURANT [employer] TE[employer] MEMBER.STEM DRYER MAINTAINER [address] [place] [address] Primary Staff Physician Nephrology 10/04/21 South Asian History Professor Relationship Specialty Start Date End Date Katlheen Sams PA-C [address] [place] [address] PCP - General Internal Medicine 07/06/18 Usman Lowry, RESTAURANT [employer] TE[employer]BER.STEM DRYER MAINTAINER [address] [place] [address] Primary Staff Physician Nephrology 10/04/21 South Asian History Professor Relationship Specialty Start Date End Date Kathleen Sams PA-C [address] [place] [address] PCP - General Internal Medicine 07/06/18 Usman Lowry, RESTAURANT [employer] TEAM MEMBER.STEM DRYER MAINTAINER [address] [place] [address] Primary Staff Physician Nephrology 10/04/21 South Asian History Professor Relationship Specialty Start Date End Date Kathleen Sams PA-C [address] [place] [address] PCP - General Internal Medicine 07/06/18 Usman Lorwy, RESTAURANT HOU[employer] TEAM MEMBER.STEM DRYER MAINTAINER [address] [place] [address] Primary Staff Physician Nephrology 10/04/21 South Asian History Professor Relationship Specialty Start Date End Date Kathleen Sams PA-C [address] [place] [address] PCP - General Internal Medicine 07/06/18 Usman Lowry, RESTAURANT [employer] TEAM MEMBER.STEM DRYER MAINTAINER [address] [place] [address] Primary Staff Physician Nephrology 10/04/21 South Asian History Professor Relationship Specialty Start Date End Date Kathleen Sams PA-C [address] [place] [address] PCP - General Internal Medicine 07/06/18 Usman Lowry, RESTAURANT [employer] TE[employer] MEMBER.STEM DRYER MAINTAINER [address] [place] [address] Primary Staff Physician Nephrology 10/04/21 South Asian History Professor Relationship Specialty Start Date End Date Kathleen Sams PA-C [address] [place] [address] PCP - General Internal Medicine 07/06/18 Usman Lowry, RESTAURANT [employer] TE[employer] MEMBER.STEM DRYER MAINTAINER [address] [place] [address] Primary Staff Physician Nephrology 10/04/21 South Asian History Professor Relationship Specialty Start Date End Date Kathleen Sams PA-C [address] [place] [address] PCP - General Internal Medicine 07/06/18 Usman Lowry, RESTAURANT [employer] TE[employer] MEMBER.STEM DRYER MAINTAINER [address] [place] [address] Primary Staff Physician Nephrology 10/04/21 South Asian History Professor Relationship Specialty Start Date End Date Kathleen Sams PA-C [address] [place] [address] PCP - General Internal Medicine 07/06/18 Usman Lowry, RESTAURANT [employer] TE[employer] MEMBER.STEM DRYER MAINTAINER [address] [place] [address] Primary Staff Physician Nephrology 10/04/21 South Asian History Professor Relationship Specialty Start Date End Date Kathleen Sams PA-C [address] [place] [address] PCP - General Internal Medicine 07/06/18 Usman Lowry, RESTAURANT HOU[employer] TEAM MEMBER.STEM DRYER MAINTAINER [address] [place] [address] Primary Staff Physician Nephrology 10/04/21 South Asian History Professor Relationship Specialty Start Date End Date Kathleen Sams PA-C [address] [place] [address] PCP - General Internal Medicine 07/06/18 Usman Lowry APRN.STEM DRYER MAINTAINER [address] [place] [address] Primary Staff Physician Nephrology 10/04/21 South Asian History Professor Relationship Specialty Start Date End Date Kathleen Sams PA-C [address] [place] [address] PCP - General Internal Medicine 07/06/18 Usman Lowry APRN.STEM DRYER MAINTAINER [address] [place] [address] Primary Staff Physician Nephrology 10/04/21 South Asian History Professor Relationship Specialty Start Date End Date Kathleen Sams PA-C [address] [place], [place] [id number] PCP - General Internal Medicine 07/06/18 Usman Lowry, RESTAURANT [employer] TE[employer] MEMBER.STEM DRYER MAINTAINER [address] [place] [address] Primary Staff Physician Nephrology 10/04/21 South Asian History Professor Relationship Specialty Start Date End Date Kathleen Sams PA-C [address] [place], [place] [id number] PCP - General Internal Medicine 07/06/18 Usman Lowry RESTAURANT [employer] TE[employer] MEMBER.STEM DRYER MAINTAINER [address] [place] [address] Primary Staff Physician Nephrology 10/04/21 South Asian History Professor Relationship Specialty Start Date End Date Kathleen Sams PA-C [address] [place] [address] PCP - General Internal Medicine 07/06/18 Usman Lowry, RESTAURANT HOU[employer] TEAM MEMBER.STEM DRYER MAINTAINER [address] [place] [address] Primary Staff Physician Nephrology 10/04/21 South Asian History Professor Relationship Specialty Start Date End Date Kathleen Sams PA-C [address] [place] [address] PCP - General Internal Medicine 07/06/18 Usman Lowry, RESTAURANT [employer] TEAM MEMBER.STEM DRYER MAINTAINER [address] [place] [address] Primary Staff Physician Nephrology 10/04/21 South Asian History Professor Relationship Specialty Start Date End Date Kathleen Sams PA-C [address] [place] [address] PCP - General Internal Medicine 07/06/18 Usman Lowry, RESTAURANT [employer] TEAM MEMBER.STEM DRYER MAINTAINER [address] [place] [address] Primary Staff Physician Nephrology 10/04/21 South Asian History Professor Relationship Specialty Start Date End Date Kathleen Sams PA-C [address] [place] [address] PCP - General Internal Medicine 07/06/18 Usman Lowry, RESTAURANT [employer] TEAM MEMBER.STEM DRYER MAINTAINER [address] [place] [address] Primary Staff Physician Nephrology 10/04/21 South Asian History Professor Relationship Specialty Start Date End Date Kathleen Sams PA-C [address] [place] [address] PCP - General Internal Medicine 07/06/18 Usman Lowry, RESTAURANT [employer] TE[employer] MEMBER.STEM DRYER MAINTAINER [address] [place] [address] Primary Staff Physician Nephrology 10/04/21 South Asian History Professor Relationship Specialty Start Date End Date Kathleen Sams PA-C [address] [place], [place] [id number] PCP - General Internal Medicine 07/06/18 Usman Lowry, RESTAURANT [employer] TE[employer] MEMBER.STEM DRYER MAINTAINER [address] [place], [place] [address] Primary Staff Physician Nephrology 10/04/21 South Asian History Professor Relationship Specialty Start Date End Date Kathleen Sams PA-C [address] [place] [address] PCP - General Internal Medicine 07/06/18 Usman Lowry, RESTAURANT [employer] TEAM MEMBER.STEM DRYER MAINTAINER [address] [place] [address] Primary Staff Physician Nephrology 10/04/21 South Asian History Professor Relationship Specialty Start Date End Date Kathleen Sams PA-C [address] [place], [place] [id number] PCP - General Internal Medicine 07/06/18 Usman Lowry, RESTAURANT [employer] TEAM MEMBER.STEM DRYER MAINTAINER [address] [place], [place] [id number] Primary Staff Physician Nephrology 10/04/21 South Asian History Professor Relationship Specialty Start Date End Date Kathleen Sams PA-C [address] [place] [address] PCP - General Internal Medicine 07/06/18 Usman Lowry, RESTAURANT [employer] TEAM MEMBER.STEM DRYER MAINTAINER [address] [place], [place] [id number] Primary Staff Physician Nephrology 10/04/21 South Asian History Professor Relationship Specialty Start Date End Date Kathleen Sams PA-C [address] [place] [address] PCP - General Internal Medicine 07/06/18 Usman Lowry, RESTAURANT [employer] TEAM MEMBER.STEM DRYER MAINTAINER [address] [place], [place] [id number] Primary Staff Physician Nephrology 10/04/21 South Asian History Professor Relationship Specialty Start Date End Date Kathleen Sams PA-C [address] [place], [place] 3760420 PCP - General Internal Medicine 07/06/18 Usman Lowry, RESTAURANT HOU[employer] TEAM MEMBER.STEM DRYER MAINTAINER [address] [place] [address] Primary Staff Physician Nephrology 10/04/21 South Asian History Professor Relationship Specialty Start Date End Date Kathleen Sams PA-C [address] [place], [place] [id number] PCP - General Internal Medicine 07/06/18 Usman Lowry, RESTAURANT [employer] TEAM MEMBER.STEM DRYER MAINTAINER [address] [place], [place] [address] Primary Staff Physician Nephrology 10/04/21 South Asian History Professor Relationship Specialty Start Date End Date Kathleen Sams PA-C [address] [place], [place] [id number] PCP - General Internal Medicine 07/06/18 Usman Lowry RESTAURANT [employer] TEAM MEMBER.STEM DRYER MAINTAINER [address] [place], [place] 8409[address] Primary Staff Physician Nephrology 10/04/21 South Asian History Professor Relationship Specialty Start Date End Date Kathleen Sams PA-C [address] [place], [place] [id number] PCP - General Internal Medicine 07/06/18 Usman Lowry RESTAURANT [employer] TEAM MEMBER.STEM DRYER MAINTAINER [address] [place], [place] [id number] Primary Staff Physician Nephrology 10/04/21 South Asian History Professor Relationship Specialty Start Date End Date Kathleen Sams PA-C [address] [place], [place] [id number] PCP - General Internal Medicine 07/06/18 Usman Lowry RESTAURANT [employer] TEAM MEMBER.STEM DRYER MAINTAINER [address] [place] [address] Primary Staff Physician Nephrology 10/04/21 South Asian History Professor Relationship Specialty Start Date End Date Kathleen Sams PA-C [address] [place], [place] [id number] PCP - General Internal Medicine 07/06/18 Usman Lowry RESTAURANT HOU[employer] TEAM MEMBER.STEM DRYER MAINTAINER [address] [place], [place] [id number] Primary Staff Physician Nephrology 10/04/21 South Asian History Professor Relationship Specialty Start Date End Date Kathleen Sams PA-C [address] [place] [address] PCP - General Internal Medicine 07/06/18 Usman Lowry, RESTAURANT HOU[employer]Y TEAM MEMBER.STEM DRYER MAINTAINER [address] [place] [address] Primary Staff Physician Nephrology 10/04/21 South Asian History Professor Relationship Specialty Start Date End Date Kathleen Sams PA-C [address] [place] [address] PCP - General Internal Medicine 07/06/18 Usman Lowry, RESTAURANT HOU[employer]Y TEAM MEMBER.STEM DRYER MAINTAINER [address] [place] [address] Primary Staff Physician Nephrology 10/04/21 South Asian History Professor Relationship Specialty Start Date End Date Kathleen Sams PA-C PCP - General Internal Medicine 07/06/18 Usman Lowry, RESTAURANT HOU[employer] TEAM MEMBER.STEM DRYER MAINTAINER [address] [place] [address] Primary Staff Physician Nephrology 10/04/21 South Asian History Professor Relationship Specialty Start Date End Date Kathleen Sams PA-C PCP - General Internal Medicine 07/06/18 Usman Lowry, RESTAURANT HOURLY TEAM MEMBER.STEM DRYER MAINTAINER [address] [place] [address] Primary Staff Physician Nephrology 10/04/21 South Asian History Professor Relationship Specialty Start Date End Date Kathleen Sams PA-C PCP - General Internal Medicine 07/06/18 Usman Lowry, RESTAURANT HOU[employer] TEAM MEMBER.STEM DRYER MAINTAINER [address] [place], [place] [id number] Primary Staff Physician Nephrology 10/04/21 South Asian History Professor Relationship Specialty Start Date End Date Kathleen Sams PA-C PCP - General Internal Medicine 07/06/18 Usman Lowry, RESTAURANT HOU[employer] TEAM MEMBER.STEM DRYER MAINTAINER [address] [place], [place] [id number] Primary Staff Physician Nephrology 10/04/21 South Asian History Professor Relationship Specialty Start Date End Date Kathleen Sams PA-C PCP - General Internal Medicine 07/06/18 Usman Lowry, RESTAURANT HOURLY TEAM MEMBER.STEM DRYER MAINTAINER [address] [place], [place] [id number] Primary Staff Physician Nephrology 10/04/21 South Asian History Professor Relationship Specialty Start Date End Date Kathleen Sams PA-C PCP - General Internal Medicine 07/06/18 Usman Lowry, RESTAURANT HOURLY TEAM MEMBER.STEM DRYER MAINTAINER [address] [place], [place] [id number] Primary Staff Physician Nephrology 10/04/21 South Asian History Professor Relationship Specialty Start Date End Date Kathleen Sams PA-C PCP - General Internal Medicine 07/06/18 Usman Lowry APRN.STEM DRYER MAINTAINER [address] [place] [id number] Primary Staff Physician Nephrology 10/04/21 Reason for [...] NM Specialty Diagnoses / Procedures Referred By Contac t Referred To Contact MOLECULAR & FUNCTIONAL IMAGING Diagnoses Persistent atrial fibrillation (HCC) Abnormal EKG Procedures NM CARDIAC PERF STRESS/PHARM MYOCARDIAL SPECT MULTIPLE STUDIES Emanuel Scott MD [address] [place] [address] Molecular & Functional Imaging [address] [id number] Referral ID Status Reason Start Date Expiration Date V isits Requested Visits Authorized [id number] Closed Auto-Generate d Referral 11/10/2023 12/09/2024 1 [...] S/p cadaver renal transplant, Current use of shelter anticoagulationPrimary hypertension Reason Onset Date Comments Refill [...] BE BASED ON THE PRIMARY CLINICAL RECORDS. [facility] [employer] [facility]. provides no warranty or guarantee of the accuracy or completeness of information in this document.
[2025-04-25 16:02] LABS: Glucose Urine UA NEGATIVE (NEGATIVE)
[2025-04-25 16:37] LABS: Lactate/Lactic Acid 1.7 mmol/L (0.4-2.0)
[2025-04-25 17:57] VITALS: BP 148/83; PULSE 68; TEMP 36.8; O2SAT 97
== END 2025-04-25 17:59 | disposition home or self-care (01) ==
PROVIDERS: Physician Assistant; Emergency Provider Emergency Medicine
DX: M79.10 Myalgia, unspecified site (principal); I48.91 Unspecified atrial fibrillation; Z79.01 Long term (current) use of anticoagulants; Z94.0 Kidney transplant status
CPT/HCPCS: 36415; 80048; 80076; 81003; 83605; 85025; 86140; 87804; 87811; 93005; 99285